=== PATIENT | male | born 1960 | race American Indian/Alaskan Native ===

== ENCOUNTER 2018-10-11 03:20 | Inpatient (IN) | payer MEDICARE, OTHER ==
[2018-10-11] MEDS ORDERED: NACL 0.9% 1000 ML 2,000 ML ONE (04:18)
[2018-10-11] MEDS ORDERED: NACL 0.9% 500 ML 500 ML IV ONE (05:05)
[2018-10-11 05:49] LABS: Hematocrit 24.5 % (35.5-45.6); Mean Corpuscular HGB Conc 32 % (32-34); Mean Corpuscular Volume 94 fl (84-94); Platelet Count 297 K/mm3 (140-440); Red Blood Count 2.62 M/mm3 (3.65-5.03)
[2018-10-11 06:00] LABS: INR 1.35 (0.87-1.13)
[2018-10-11] MEDS ORDERED: ZOSYN/NS 4.5GM/100ML 4.5 GM/100 ML VIAL IV ONE (06:07)
--- NOTE | 2018-10-11 06:09 | XRay Report ---
FINAL REPORT EXAM: XR CHEST 1V AP HISTORY: possible Sepsis TECHNIQUE: AP portable view(s) of the chest obtained. PRIORS: None. FINDINGS: Patient is rotated. No mediastinal shift. Cardiac silhouette is not enlarged. No pneumothorax, effusi on, or focal pulmonary opacity identified. No acute skeletal findings. IMPRESSION: No acute pulmonary finding identified.
[2018-10-11 06:11] LABS: Albumin 2.1 g/dL (3.9-5); Calcium 7.4 mg/dL (8.4-10.2)
[2018-10-11] MEDS ORDERED: D50W (25GM) Syringe IV PRN (06:14)
[2018-10-11] MEDS ORDERED: VANCOMYCIN/NS 1 GM/250 ML 1 GM/250 ML BAG IV ONE (06:15)
[2018-10-11] MEDS: LEVOPHED DRIP 4 MG/NS 250 ML 4 MG/250 ML BAG IV SCH ×5 (06:15→19:49)
[2018-10-11 06:31] LABS: Anisocytosis 2+; Band Neutrophils # (Manual) 1.3 K/mm3; Basophils % (Manual) 0 % (0.0-1.8); Burr Cells 2+; Eosinophils % (Manual) 0 % (0.0-4.3); Monocytes % (Manual) 0 % (0.0-7.3); Poikilocytosis 2+; Total Cells Counted 100
[2018-10-11 06:32] LABS: Chol/HDL Ratio 3.71 %; Ovalocytes 1+
[2018-10-11 06:34] LABS: Bacteria,Urine 4+ /HPF (Negative); Bilirubin,Urine NEG (Negative); Blood,Urine SM (Negative); Color,Urine Amber (Yellow); Urobilinogen,Urine < 2.0 mg/dL (<2.0)
[2018-10-11 06:36] LABS: WBC,Urine > 182.0 /HPF (0.0-6.0)
[2018-10-11] MEDS ORDERED: VANCOMYCIN 1,250 MG in NACL 0.9% 250ML 250 ML IV ONE (07:00)
[2018-10-11] MEDS ORDERED: LEVOPHED DRIP 4 MG/NS 250 ML 4 MG/250 ML BAG IV SCH (07:00)
--- NOTE | 2018-10-11 07:32 | Emergency Department Report ---
ED General Adult HPI - General Chief complaint: Hyperglycemia Stated complaint: FEVER/VOMITING Time Seen by Provider: 10/11/18 06:00 Source: EMS Mode of arrival: Stretcher Limitations: Language Barrier, Physical Limitation - History of Present Illness Initial comments: 58-year-old male with a history of diabetes, anal abscess, colostomy presents after being referred from a nursing facility to this facility after noting to have a presence of fever and his blood pressure being low. Patient was noted to have chills but sugar was checked and was 426. Blood pressure at the residential was 91/44 and continued to be hypotensive upon arrival here in the emergency department. This patient had a recent admission to the Medical and was transitioned to a intermediate facility. - Related Data Allergies Allergy/AdvReac Type Severity Reaction Status Date / Time No Known Allergies Allergy Unverified 10/11/18 05:00 ED Review of Systems ROS: Stated complaint: FEVER/VOMITING Other details as noted in HPI Constitutional: chills, fever, weakness Eyes: denies: eye pain, eye discharge, vision change ENT: denies: ear pain, throat pain Respiratory: denies: cough, shortness of breath, wheezing Cardiovascular: denies: chest pain, palpitations Endocrine: no symptoms reported Gastrointestinal: denies: abdominal pain, nausea, diarrhea Genitourinary: denies: urgency, dysuria Musculoskeletal: denies: back pain, joint swelling, arthralgia Skin: denies: rash, lesions Neurological: denies: headache, weakness, paresthesias Psychiatric: denies: anxiety, depression Hematological/Lymphatic: denies: easy bleeding, easy bruising ED Past Medical Hx - Past Medical History Previous Medical History?: Yes Hx Hypertension: Yes 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) Hx Renal Disease: Yes Additional medical history: Hypercholesterolemia, Hyperlipidemia, Cardiogenic Shock, CKD, A-Fib, - Surgical History Past Surgical History?: Yes Additional Surgical History: Colostomy, Anal Abscess - Social History Smoking Status: Never Smoker Substance Use Type: None ED Physical Exam - General Limitations: Language Barrier, Physical Limitation General appearance: in distress, other (dehydrated) - Head Head exam: Present: atraumatic, normocephalic - Eye Eye exam: Present: normal appearance - ENT ENT exam: Present: mucous membranes dry - Neck Neck exam: Present: normal inspection - Respiratory Respiratory exam: Present: other (coarse breath sounds). Absent: respiratory distress - Cardiovascular Cardiovascular Exam: Present: normal rhythm, tachycardia. Absent: systolic murmur, diastolic murmur, rubs, gallop - GI/Abdominal GI/Abdominal exam: Present: soft, other (colostomy noted with brown stool no active bleeding.) - Rectal Rectal exam: Present: deferred - Extremities Exam Extremities exam: Present: normal inspection - Back Exam Back exam: Present: normal inspection - Neurological Exam Neurological exam: Present: CN II-XII intact, other (awake oriented to person and place but not to time) - Psychiatric Psychiatric exam: Present: normal affect, normal mood - Skin Skin exam: Present: other (Grade 4 decubitus ulcer noted). Absent: rash ED Course Vital Signs 10/11/18 10/11/18 10/11/18 04:02 04:15 04:20 Temperature 98.9 F Pulse Rate 114 H Respiratory 37 H Rate Blood Pressure 70/47 70/50 O2 Sat by Pulse 88 97 95 Oximetry 10/11/18 10/11/18 10/11/18 04:31 04:45 05:00 Temperature Pulse Rate 118 H 112 H 113 H Respiratory 29 H 37 H 23 Rate Blood Pressure 71/50 77/50 85/54 O2 Sat by Pulse 95 56 L 83 L Oximetry 10/11/18 10/11/18 10/11/18 05:15 05:30 05:44 Temperature Pulse Rate 107 H 105 H Respiratory 33 H 31 H 18 Rate Blood Pressure 88/43 74/39 O2 Sat by Pulse 75 L 97 Oximetry 10/11/18 10/11/18 10/11/18 05:45 05:52 06:00 Temperature Pulse Rate 106 H 115 H 116 H Respiratory 37 H 14 Rate Blood Pressure 73/49 93/37 O2 Sat by Pulse Oximetry 10/11/18 10/11/18 10/11/18 06:15 06:30 06:45 Temperature Pulse Rate 114 H 112 H 116 H Respiratory 33 H 22 31 H Rate Blood Pressure 40/20 111/62 86/59 O2 Sat by Pulse 94 96 Oximetry 10/11/18 10/11/18 10/11/18 06:47 06:49 06:50 Temperature Pulse Rate 116 H 115 H 115 H Respiratory 33 H 31 H 31 H Rate Blood Pressure 86/59 88/51 89/50 O2 Sat by Pulse 95 91 86 Oximetry 10/11/18 10/11/18 10/11/18 06:51 06:53 06:55 Temperature Pulse Rate 117 H 112 H 109 H Respiratory 31 H 29 H 22 Rate Blood Pressure 89/50 89/50 84/50 O2 Sat by Pulse 89 97 96 Oximetry 10/11/18 10/11/18 10/11/18 06:57 06:59 07:01 Temperature Pulse Rate 111 H 112 H 108 H Respiratory 29 H 28 H 23 Rate Blood Pressure 91/73 107/60 107/60 O2 Sat by Pulse 97 97 98 Oximetry 10/11/18 10/11/18 10/11/18 07:02 07:03 07:04 Temperature Pulse Rate 109 H 110 H 108 H Respiratory 31 H 31 H 32 H Rate Blood Pressure 95/62 95/62 104/58 O2 Sat by Pulse 89 98 98 Oximetry 10/11/18 10/11/18 10/11/18 07:05 07:06 07:07 Temperature Pulse Rate 111 H 116 H 118 H Respiratory 33 H 31 H 31 H Rate Blood Pressure 104/58 110/65 110/65 O2 Sat by Pulse 98 97 97 Oximetry 10/11/18 10/11/18 10/11/18 07:09 07:11 07:12 Temperature Pulse Rate 117 H 116 H 117 H Respiratory 32 H 32 H 27 H Rate Blood Pressure 114/68 99/60 99/60 O2 Sat by Pulse 97 98 96 Oximetry 10/11/18 10/11/18 10/11/18 07:13 07:14 07:15 Temperature Pulse Rate 117 H 117 H 116 H Respiratory 30 H 25 H 31 H Rate Blood Pressure 99/60 111/69 111/69 O2 Sat by Pulse 98 98 98 Oximetry 10/11/18 10/11/18 10/11/18 07:16 07:17 07:19 Temperature Pulse Rate 117 H 116 H 115 H Respiratory 29 H 29 H 31 H Rate Blood Pressure 98/63 98/63 103/58 O2 Sat by Pulse 98 95 96 Oximetry 10/11/18 10/11/18 10/11/18 07:21 07:23 07:24 Temperature Pulse Rate 116 H 116 H 116 H Respiratory 29 H 31 H 28 H Rate Blood Pressure 106/61 106/61 102/59 O2 Sat by Pulse 100 95 95 Oximetry 10/11/18 10/11/18 07:25 07:26 Temperature Pulse Rate 115 H 116 H Respiratory 30 H 30 H Rate Blood Pressure 102/59 110/61 O2 Sat by Pulse 98 98 Oximetry - Central Line Placement Right Femoral Consent Obtained: emergent situation Time Out Performed: Yes Patient Placed on Monitor/Pulse Ox: Yes Prep: mask, gown, gloves Central Line Prep: Chlorhexidine scrub Local Anesthesia Used: Lidocaine 1% Amount of Anesthesia Used (mls): 5 Ultrasound Used for Placement: Yes Central Line Lumen Inserted: triple Bloods Obtained for Lab: No Central Line Position: good blood return, all ports aspirated, flus, sutured in place with nyl Patient Tolerated Procedure: well Complications: none ED Medical Decision Making - Lab Data Result diagrams: 10/11/18 05:21 10/11/18 05:21 - Medical Decision Making Upon arrival patient was noted to have an elevated blood sugar. Patient received 2 L IV fluids however continued to range hypotensive with a map in the 50s. Patient then was given Levaquin therapy which helped improve his mean arterial pressure. Patient was also given vancomycin and Zosyn therapy as patient has a sacral wound that is in Grade 4 status. Patient be admitted to ICU setting for continued management and treatment. Patient placed on a continuous insulin drip at the current time. - Differential Diagnosis DKA; anemia; electrolyte abnormalities; UTI; Critical Care Time: Yes Critical care time in (mins) excluding proc time.: 56 Critical care attestation.: If time is entered above; I have spent that time in minutes in the direct care of this critically ill patient, excluding procedure time. Critical Care Time: Critical care time does not include time spent on billable procedures. Time includes time spent on frequent reassessment; bedside care, and physician consultation. ED Disposition Clinical Impression: DKA (diabetic ketoacidoses), Hypotension, Sacral decubitus ulcer, stage IV, Fever, Hypokalemia Disposition: OP ADMIT IP TO THIS HOSP Is pt being admited?: Yes Does the pt Need Aspirin: No Condition: Critical Instructions: Diabetic Ketoacidosis (ED) Referrals: FERNANDO ROMANO MD [Primary Care Provider] - 3-5 Days Time of Disposition: 07:35 Print Language: SAUDI ARABIAN
[2018-10-11] MEDS: HumuLIN R 100 UNITS in NACL 0.9% 99 ML IV SCH ×2 (07:57→20:54)
[2018-10-11 08:12] LABS: Calcium 7.8 mg/dL (8.4-10.2)
[2018-10-11] MEDS ORDERED: PROVENTIL IH PRN (08:21)
--- NOTE | 2018-10-11 08:40 | History and Physical Report ---
History of Present Illness Date of examination: 10/11/18 Date of admission: 10/11/18 Chief complaint: Sepsis History of present illness: Dinora is a 58 year old male presenting from ID ([facility]) Pt is a very poor historian, per medical records he has history of paroxysmal atrial fibrillation, hypertension, diabetes, Colosotomy and lack of coordination with Muscle weakness anal abscess with recent debridement in Aug 2018, chronic indwelling suarez who was referred to the ER from his [facility] for evaluation of fever and low blood pressure and altered mental status. In the ER he was found to have urosepsis, acute renal failure and DKA with elevated troponin. Patient was unable to provided any information due to inchoherrence of his thoughts he complained of dry mouth per the ED Physician. He denies any chest pain, palpitations or shortness of breath. A report from the ID revealed that he was noted this mornign to be confused with shivering. Labs done the day prior to admission revealed a wbc of 31 per the staff. The patient in the ED was started on sepsis protocol and also pressers Past History Past Medical History: atrial fib (paroxysmal ), diabetes, hypertension, other (anal abscess, chronic indwelling suarez) Past Surgical History: Other Social history: other ([facility] resident) Family history: other (unable to obtain ) Past History Past Medical History: CAD, hypertension Past Surgical History: bowel surgery, Other (COLOSTOMY) Social history: other (ID ) Family history: no significant family history Medications and Allergies Allergies Allergy/AdvReac Type Severity Reaction Status Date / Time No Known Allergies Allergy Unverified 10/11/18 05:00 Home Medications Medication Instructions Recorded Confirmed Last Taken Type Acetaminophen [Acetaminophen ER] 650 mg PO Q6H PRN 10/11/18 10/11/18 Unknown History Amlodipine Besylate [Norvasc] 5 mg PO DAILY 10/11/18 10/11/18 Unknown History Atorvastatin [Lipitor Tab] 80 mg PO QHS 10/11/18 10/11/18 Unknown History Calcium Carbonate [Calcium Antacid] 200 mg PO TID 10/11/18 10/11/18 Unknown History Collagenase Clostridium Hist. 1 applic TP BID 10/11/18 10/11/18 Unknown History [Santyl] Collagenase Clostridium Hist. 1 applic TP QPM 10/11/18 10/11/18 Unknown History [Santyl] HYDROcodone/APAP 7.5-325 [[place] 1 each PO Q4HR PRN 10/11/18 10/11/18 Unknown History 7.5/325] Metformin HCl [Glucophage] 500 mg PO BID 10/11/18 10/11/18 Unknown History Mirtazapine [Remeron] 15 mg PO HS 10/11/18 10/11/18 Unknown History RX: Allopurinol 300 mg PO QDAY 10/11/18 10/11/18 Unknown History Sulfamethoxazole/Trimethoprim 1 each PO BID 10/11/18 10/11/18 Unknown History [Bactrim DS TAB] Active Meds: Active Medications Albuterol (Proventil) 2.5 mg IH Q3HRT PRN PRN Reason: Shortness Of Breath Albuterol/Ipratropium (Duoneb *Not For Prn Use*) 1 ampul IH Q6HRT FRANCISCO Dextrose (D50w (25gm) Syringe) 0 ml IV ONCE PRN PRN Reason: Hypoglycemia Norepinephrine (Levophed Drip 4 Mg/Ns 250 Ml) 4 mg in 250 mls @ 7.5 mls/hr IV TITR FRANCISCO; Protocol Last Admin: 10/11/18 07:08 Dose: 20 mcg/min, 75 mls/hr Documented by: Insulin Human Regular 100 (units/ Sodium Chloride) 100 mls @ 1 mls/hr IV TITR FRANCISCO; Protocol Last Admin: 10/11/18 07:57 Dose: 4 units/hr, 4 mls/hr Documented by: Vancomycin HCl 1,250 mg/ (Sodium Chloride) 275 mls @ 166.667 mls/hr IV ONCE ONE Stop: 10/11/18 08:38 Last Admin: 10/11/18 07:57 Dose: 166.667 mls/hr Documented by: Potassium Chloride (Kcl 10meq/100ml) 10 meq in 100 mls @ 100 mls/hr IV Q1H FRANCISCO Stop: 10/11/18 10:59 Cefepime HCl (Maxipime/Ns 2 Gm/100 Ml) 2 gm in 100 mls @ 200 mls/hr IV Q12HR FRANCISCO; Protocol Ondansetron HCl (Zofran) 4 mg IV Q8H PRN PRN Reason: Nausea And Vomiting Sodium Chloride (Nacl 0.9% 1000 Ml) 2,340 ml 30 ml/kg (2340 ml) IV ONCE ONE Stop: 10/11/18 08:22 Sodium Chloride (Sodium Chloride Flush Syringe 10 Ml) 10 ml IV BID FRANCISCO Sodium Chloride (Sodium Chloride Flush Syringe 10 Ml) 10 ml IV PRN PRN PRN Reason: LINE FLUSH Review of Systems ROS unobtainable: due to mental status Exam - Constitutional Vitals: Temp Pulse Resp BP Pulse Ox 98.9 F 116 H 30 H 110/61 98 10/11/18 04:20 10/11/18 07:26 10/11/18 07:26 10/11/18 07:26 10/11/18 07:26 General appearance: Present: mild distress, disheveled - EENT Eyes: Present: PERRL, EOM intact ENT: clear oral mucosa - Neck Neck: Present: supple, normal ROM - Respiratory Respiratory effort: normal Respiratory: bilateral: diminished - Cardiovascular Heart Sounds: Present: S1 & S2, gallop. Absent: systolic murmur - Extremities Extremities: no ischemia, pulses intact, pulses symmetrical, No edema, normal temperature, normal color Peripheral Pulses: within normal limits - Abdominal General gastrointestinal: Present: non-tender, non-distended, other (good pink colostomy site) - Integumentary Integumentary: Present: warm (unstagable pressure ulcer) - Musculoskeletal Musculoskeletal: generalized weakness - Psychiatric Psychiatric: agitated - Neurologic Neurologic: other (encephalopathic) - Allied Health Allied health notes reviewed: nursing Results - Labs CBC & Chem 7: 10/11/18 05:21 10/11/18 Unknown Labs: Laboratory Last Values WBC 22.3 K/mm3 (4.5-11.0) H 10/11/18 05:21 RBC 2.62 M/mm3 (3.65-5.03) L 10/11/18 05:21 Hgb 8.0 gm/dl (11.8-15.2) L 10/11/18 05:21 Hct 24.5 % (35.5-45.6) L 10/11/18 05:21 MCV 94 fl (84-94) 10/11/18 05:21 MCH 30 pg (28-32) 10/11/18 05:21 MCHC 32 % (32-34) 10/11/18 05:21 RDW 16.0 % (13.2-15.2) H 10/11/18 05:21 Plt Count 297 K/mm3 (140-440) 10/11/18 05:21 Add Manual Diff Complete 10/11/18 05:21 Total Counted 100 10/11/18 05:21 Seg Neuts % (Manual) 90.0 % (40.0-70.0) H 10/11/18 05:21 Band Neutrophils % 6.0 % 10/11/18 05:21 Lymphocytes % (Manual) 4.0 % (13.4-35.0) L 10/11/18 05:21 Reactive Lymphs % (Man) 0 % 10/11/18 05:21 Monocytes % (Manual) 0 % (0.0-7.3) 10/11/18 05:21 Eosinophils % (Manual) 0 % (0.0-4.3) 10/11/18 05:21 Basophils % (Manual) 0 % (0.0-1.8) 10/11/18 05:21 Metamyelocytes % 0 % 10/11/18 05:21 Myelocytes % 0 % 10/11/18 05:21 Promyelocytes % 0 % 10/11/18 05:21 Blast Cells % 0 % 10/11/18 05:21 Nucleated RBC % Not Reportable 10/11/18 05:21 Seg Neutrophils # Man 20.1 K/mm3 (1.8-7.7) H 10/11/18 05:21 Band Neutrophils # 1.3 K/mm3 10/11/18 05:21 Lymphocytes # (Manual) 0.9 K/mm3 (1.2-5.4) L 10/11/18 05:21 Abs React Lymphs (Man) 0.0 K/mm3 10/11/18 05:21 Monocytes # (Manual) 0.0 K/mm3 (0.0-0.8) 10/11/18 05:21 Eosinophils # (Manual) 0.0 K/mm3 (0.0-0.4) 10/11/18 05:21 Basophils # (Manual) 0.0 K/mm3 (0.0-0.1) 10/11/18 05:21 Metamyelocytes # 0.0 K/mm3 10/11/18 05:21 Myelocytes # 0.0 K/mm3 10/11/18 05:21 Promyelocytes # 0.0 K/mm3 10/11/18 05:21 Blast Cells # 0.0 K/mm3 10/11/18 05:21 WBC Morphology Not Reportable 10/11/18 05:21 Hypersegmented Neuts Not Reportable 10/11/18 05:21 Hyposegmented Neuts Not Reportable 10/11/18 05:21 Hypogranular Neuts Not Reportable 10/11/18 05:21 Smudge Cells Not Reportable 10/11/18 05:21 Toxic Granulation Not Reportable 10/11/18 05:21 Toxic Vacuolation Not Reportable 10/11/18 05:21 Dohle Bodies Not Reportable 10/11/18 05:21 Pelger-Huet Anomaly Not Reportable 10/11/18 05:21 Lisa Rods Not Reportable 10/11/18 05:21 Platelet Estimate Appears normal 10/11/18 05:21 Clumped Platelets Not Reportable 10/11/18 05:21 Plt Clumps, EDTA Not Reportable 10/11/18 05:21 Large Platelets Not Reportable 10/11/18 05:21 Giant Platelets Not Reportable 10/11/18 05:21 Platelet Satelliting Not Reportable 10/11/18 05:21 Plt Morphology Comment Not Reportable 10/11/18 05:21 RBC Morphology Not Reportable 10/11/18 05:21 Dimorphic RBCs Not Reportable 10/11/18 05:21 Polychromasia Few 10/11/18 05:21 Hypochromasia Not Reportable 10/11/18 05:21 Poikilocytosis 2+ 10/11/18 05:21 Anisocytosis 2+ 10/11/18 05:21 Microcytosis Not Reportable 10/11/18 05:21 Macrocytosis Not Reportable 10/11/18 05:21 Spherocytes Not Reportable 10/11/18 05:21 Pappenheimer Bodies Not Reportable 10/11/18 05:21 Sickle Cells Not Reportable 10/11/18 05:21 Target Cells Not Reportable 10/11/18 05:21 Tear Drop Cells Not Reportable 10/11/18 05:21 Ovalocytes 1+ 10/11/18 05:21 Helmet Cells Not Reportable 10/11/18 05:21 [place] Bodies Not Reportable 10/11/18 05:21 [place] Rings Not Reportable 10/11/18 05:21 [place] Cells 2+ 10/11/18 05:21 Bite Cells Not Reportable 10/11/18 05:21 Crenated Cell Not Reportable 10/11/18 05:21 Elliptocytes Not Reportable 10/11/18 05:21 Acanthocytes (Spur) Few 10/11/18 05:21 Rouleaux Not Reportable 10/11/18 05:21 Hemoglobin C Crystals Not Reportable 10/11/18 05:21 Schistocytes Not Reportable 10/11/18 05:21 Malaria parasites Not Reportable 10/11/18 05:21 [place] Bodies Not Reportable 10/11/18 05:21 Hem Pathologist Commnt No 10/11/18 05:21 PT 17.1 Sec. (12.2-14.9) H 10/11/18 05:21 INR 1.35 (0.87-1.13) H 10/11/18 05:21 VBG pH 7.226 (7.320-7.420) L 10/11/18 05:21 Sodium 132 mmol/L (137-145) L 10/11/18 06:51 Potassium 3.1 mmol/L (3.6-5.0) L 10/11/18 06:51 Chloride 94.3 mmol/L (98-107) L 10/11/18 06:51 Carbon Dioxide 10 mmol/L (22-30) L 10/11/18 06:51 Anion Gap 31 mmol/L 10/11/18 06:51 BUN 68 mg/dL (9-20) H 10/11/18 06:51 Creatinine 5.8 mg/dL (0.8-1.5) H 10/11/18 06:51 Estimated GFR 12 ml/min 10/11/18 06:51 BUN/Creatinine Ratio 12 % 10/11/18 06:51 Glucose 402 mg/dL (75-100) H 10/11/18 06:51 Lactic Acid 7.40 mmol/L (0.7-2.0) H* 10/11/18 05:21 Calcium 7.8 mg/dL (8.4-10.2) L 10/11/18 06:51 Phosphorus 4.80 mg/dL (2.5-4.5) H 10/11/18 06:51 Total Bilirubin 0.30 mg/dL (0.1-1.2) 10/11/18 05:21 AST 27 units/L (5-40) 10/11/18 05:21 ALT 13 units/L (7-56) 10/11/18 05:21 Alkaline Phosphatase 105 units/L (35-129) 10/11/18 05:21 Total Creatine Kinase 1094 units/L (55-170) H 10/11/18 05:21 CK-MB (CK-2) 3.0 ng/mL (0.0-4.0) 10/11/18 05:21 CK-MB (CK-2) Rel Index 0.2 (0-4) 10/11/18 05:21 Troponin T 0.116 ng/mL (0.00-0.029) H* 10/11/18 05:21 Total Protein 6.2 g/dL (6.3-8.2) L 10/11/18 05:21 Albumin 2.1 g/dL (3.9-5) L 10/11/18 05:21 Albumin/Globulin Ratio 0.5 % 10/11/18 05:21 Triglycerides 120 mg/dL (2-149) 10/11/18 05:21 Cholesterol 26 mg/dL (50-199) L 10/11/18 05:21 LDL Cholesterol Direct 4 mg/dL (50-130) L 10/11/18 05:21 HDL Cholesterol 7 mg/dL (40-59) L 10/11/18 05:21 Cholesterol/HDL Ratio 3.71 % 10/11/18 05:21 Urine Color Christine (Yellow) 10/11/18 06:08 Urine Turbidity Turbid (Clear) 10/11/18 06:08 Urine pH 5.0 (5.0-7.0) 10/11/18 06:08 Ur Specific [place] 1.016 (1.003-1.030) 10/11/18 06:08 Urine Protein 100 mg/dl mg/dL (Negative) 10/11/18 06:08 Urine Glucose (UA) Neg mg/dL (Negative) 10/11/18 06:08 Urine Ketones Neg mg/dL (Negative) 10/11/18 06:08 Urine Blood Sm (Negative) 10/11/18 06:08 Urine Nitrite Neg (Negative) 10/11/18 06:08 Urine Bilirubin Neg (Negative) 10/11/18 06:08 Urine Urobilinogen < 2.0 mg/dL (<2.0) 10/11/18 06:08 Ur Leukocyte Esterase Lg (Negative) 10/11/18 06:08 Urine WBC (Auto) > 182.0 /HPF (0.0-6.0) H 10/11/18 06:08 Urine RBC (Auto) 71.0 /HPF (0.0-6.0) 10/11/18 06:08 U Epithel Cells (Auto) 1.0 /HPF (0-13.0) 10/11/18 06:08 Urine Bacteria (Auto) 4+ /HPF (Negative) 10/11/18 06:08 Urine WBC Clumps 3+ /HPF 10/11/18 06:08 - Imaging and Cardiology Chest x-ray: image reviewed (no acute finding) Assessment and Plan Assessment and plan: Dinora is a 58 year old male presenting from ID ([facility]) Pt is a very poor historian, per medical records he has history of paroxysmal atrial fibrillation, hypertension, diabetes, Colosotomy and lack of coordination with Muscle weakness anal abscess with recent debridement in Aug 2018, chronic indwelling suarez who was referred to the ER from his [facility] for evaluation of fever and low blood pressure and altered mental status. In the ER he was found to have urosepsis, acute renal failure and DKA with elevated troponin. Patient was unable to provided any information due to incoherence of his thoughts he complained of dry mouth per the ED Physician. He denies any chest pain, palpitations or shortness of breath. A report from the ID revealed that he was noted this morning to be confused with shivering. Labs done the day prior to admission revealed a wbc of 31.4 per the staff. The patient in the ED was started on sepsis protocol and also pressers labs from [facility] done 10/10/17: wbc 31.4, hgb 9.1, plt 271 Acute Toxic metabolic encephalopathy Septic Shock Severe Sepsis Hyperosmolar NonKetotic Hyperglycemia Uncontrolled DM MALCOLM secondary to vasomotor nephropathy Metabolic acidosis Colostomy Unstagable scaral pressure ulcer POA Afib with RVR Troponemia- Type 2 NSTEMI Anemia of chronic disease Hypokalemia Severe Protein calorie malnutrition Plan Admit to ICU Insulin drip as ordered Heparin drip as ordered Cardiology, sterile processing technician, ID, nephrology consult Surgical consult Exchange Suarez Update Med Rec Give addition 2 liter bolus of fluids Sepsis protocol DKA protocol ET consult Renal ultrasound Wean pressors as tolerated PICC team for Access and D/C Right femoral Line. Replace electrolytes Fall precautions DVT/GI prophy The high probability of a clinically significant, sudden or life threatening deterioration of the [CARDIAC, RENAL, ] system(s) required my full and direct attention, intervention and personal management. The aggregate critical care time was [90] minutes. This time is in addition to time spent performing reported procedures but includes the following: [X] Data Review and interpretation [X] Patient assessment and monitoring of vital signs [X] Documentation [X] Medication orders and management Advance Directives: Yes Plan of care discussed with patient/family: Yes
[2018-10-11 08:48] LABS: Calcium 7.6 mg/dL (8.4-10.2)
[2018-10-11] MEDS ORDERED: NACL 0.9% 1000 ML IV ONE (09:00)
[2018-10-11] MEDS ORDERED: SODIUM CHLORIDE FLUSH SYRINGE 10 ML IV PRN (09:00)
[2018-10-11] MEDS ORDERED: VANCOMYCIN PHARMACY TO DOSE IV SCH (09:00)
[2018-10-11] MEDS: KCL 10MEQ/100ML 10 MEQ/100 ML BAG IV SCH ×4 (09:06→16:10)
--- NOTE | 2018-10-11 09:23 | Consultation ---
History of Present Illness - Reason for Consult Consult date: 10/11/18 acute renal failure, metabolic acidosis - History of Present Illness Mr. Jimenez is a 58yo with hx of type II DM, anal abscess and colostomy who presented to the ED from SNF due to fever and hyoptension. In addition, patient was noted to have a glucose of 426. . Past History Past Medical History: diabetes, hypertension, hyperlipidemia Past Surgical History: Other (colostomy) Social history: other (Resides at [facility]) Medications and Allergies Allergies Allergy/AdvReac Type Severity Reaction Status Date / Time No Known Allergies Allergy Unverified 10/11/18 05:00 Home Medications Medication Instructions Recorded Confirmed Last Taken Type Acetaminophen [Acetaminophen ER] 650 mg PO Q6H PRN 10/11/18 10/11/18 Unknown History Allopurinol 300 mg PO QDAY 10/11/18 10/11/18 Unknown History Amlodipine Besylate [Norvasc] 5 mg PO DAILY 10/11/18 10/11/18 Unknown History Atorvastatin [Lipitor Tab] 80 mg PO QHS 10/11/18 10/11/18 Unknown History Calcium Carbonate [Calcium Antacid] 200 mg PO TID 10/11/18 10/11/18 Unknown History Collagenase Clostridium Hist. 1 applic TP BID 10/11/18 10/11/18 Unknown History [Santyl] Collagenase Clostridium Hist. 1 applic TP QPM 10/11/18 10/11/18 Unknown History [Santyl] HYDROcodone/APAP 7.5-325 [[place] 1 each PO Q4HR PRN 10/11/18 10/11/18 Unknown History 7.5/325] Metformin HCl [Glucophage] 500 mg PO BID 10/11/18 10/11/18 Unknown History Mirtazapine [Remeron] 15 mg PO HS 10/11/18 10/11/18 Unknown History Sulfamethoxazole/Trimethoprim 1 each PO BID 10/11/18 10/11/18 Unknown History [Bactrim DS TAB] Active Meds: Active Medications Albuterol (Proventil) 2.5 mg IH Q3HRT PRN PRN Reason: Shortness Of Breath Albuterol/Ipratropium (Duoneb *Not For Prn Use*) 1 ampul IH Q6HRT FRANCISCO Dextrose (D50w (25gm) Syringe) 0 ml IV ONCE PRN PRN Reason: Hypoglycemia Norepinephrine (Levophed Drip 4 Mg/Ns 250 Ml) 4 mg in 250 mls @ 7.5 mls/hr IV TITR FRANCISCO; Protocol Last Admin: 10/11/18 07:08 Dose: 20 mcg/min, 75 mls/hr Documented by: Insulin Human Regular 100 (units/ Sodium Chloride) 100 mls @ 1 mls/hr IV TITR FRANCISCO; Protocol Last Titration: 10/11/18 09:08 Dose: 9 units/hr, 9 mls/hr Documented by: Potassium Chloride (Kcl 10meq/100ml) 10 meq in 100 mls @ 100 mls/hr IV Q1H FRANCISCO Stop: 10/11/18 10:59 Last Admin: 10/11/18 09:06 Dose: 100 mls/hr Documented by: Cefepime HCl (Maxipime/Ns 2 Gm/100 Ml) 2 gm in 100 mls @ 200 mls/hr IV Q12HR FRANCISCO; Protocol Ondansetron HCl (Zofran) 4 mg IV Q8H PRN PRN Reason: Nausea And Vomiting Sodium Chloride (Sodium Chloride Flush Syringe 10 Ml) 10 ml IV BID FRANCISCO Sodium Chloride (Sodium Chloride Flush Syringe 10 Ml) 10 ml IV PRN PRN PRN Reason: LINE FLUSH Review of Systems All systems: negative Exam - Vital Signs Vital signs: Vital Signs Pulse Ox 88 10/11/18 04:02 - General Appearance General appearance: well-developed EENT: other (poor dentition) Respiratory: Clear to Ascultation Heart: tachycardia Gastrointestinal: Present: normal. Absent: tenderness, distended Integumentary: no rash, warm and dry Neurologic: no focal deficit Musculoskeletal: Present: other (no edema) Results - Lab Results 10/11/18 05:21 10/11/18 Unknown Most recent lab results Calcium 7.6 mg/dL (8.4-10.2) L 10/11/18 Unknown Phosphorus 4.80 mg/dL (2.5-4.5) H 10/11/18 06:51 Assessment and Plan Impression: * Acute kidney secondary to ATN * Sepsis - ?urinary source * Metabolic acidosis secondary to lactic acidosis * UTI * Hypokalemia Plan: * Renal prognosis is guarded * Volume resuscitation per primary team * Start Bicarb gtt * Blood/urine cultures * Abx per primary team * Pressors prn to maintain MAP>65 - currently on Levophed * Replete lytes prn * Dose medications for renal function * Avoid potential nephrotoxins
[2018-10-11] MEDS ORDERED: ZOFRAN IV PRN (09:30)
[2018-10-11] MEDS ORDERED: NACL 0.9% 250ML 250 ML ONE (09:39)
[2018-10-11] MEDS ORDERED: NACL 0.9% 500 ML 500 ML ONE (09:40)
[2018-10-11] MEDS ORDERED: LEVOPHED DRIP 4 MG/NS 250 ML 4 MG/250 ML BAG IV ONE (09:55)
[2018-10-11] MEDS ORDERED: MAGNESIUM SULFATE IV ONE (09:56)
[2018-10-11] MEDS ORDERED: MAXIPIME/NS 2 GM/100 ML 2 GM/100 ML BAG IV SCH (10:00)
[2018-10-11] MEDS ORDERED: SODIUM BICARBONATE 150 MEQ in D5W 1,000 ML IV ONE (10:00)
--- NOTE | 2018-10-11 10:07 | Ultrasound Report ---
ULTRASOUND RENAL BILATERAL HISTORY: Acute renal insufficiency, evaluate for hydronephrosis. TECHNIQUE: transabdominal ultrasound with color Doppler interrogation. FINDINGS: The right kidney measures 10.5cm. Right renal cortex: 1.6cm. The left kidney measures 11.6cm. Left renal cortex: 1.6cm. Both kidneys are normal size, contour and position. There is mild increased cortical echotexture consistent with nonspecific renal parenchymal disease. No evidence for cyst, mass, calcifications or hydronephrosis. The bladder is essentially empty and poorly evaluated. The liver parenchyma is echogenic consistent with fatty infiltration or other parenchymal disease. There is moderate sludge in the gallbladder. IMPRESSION: Slightly echogenic kidneys consistent with nonspecific renal parenchymal disease. No hydronephrosis. Liver disease unspecified. Sludge in the gallbladder.
--- NOTE | 2018-10-11 10:34 | Consultation ---
History of Present Illness Consult date: 10/11/18 Requesting physician: ANNE BOLAND History of present illness: History of present illness: Dinora is a 58 year old male presenting from [place] ([facility]) Pt is a very poor historian, per medical records he has history of paroxysmal atrial fibrillation, hypertension, diabetes, Colosotomy and lack of coordination with Muscle weakness anal abscess with recent debridement in Aug 2018, chronic indwelling suarez who was referred to the ER from his skilled nursing for evaluation of fever and low blood pressure and altered mental status. In the ER he was found to have urosepsis, acute renal failure and DKA with elevated troponin. Patient was unable to provided any information due to inchoherrence of his thoughts he complained of dry mouth per the ED Physician. He denies any chest pain, palpitations or shortness of breath. A report from the [place] revealed that he was noted this mornign to be confused with shivering. Labs done the day prior to admission revealed a wbc of 31 per the staff. The patient in the ED was started on sepsis protocol and also vasopressor support. I have been consulted for critical care management. Patient was seen and examined. Vitals, labs, medications, chart and imaging reviewed. 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) Family history: other (unable to obtain ) Past History Past Medical History: CAD, hypertension Past Surgical History: bowel surgery, Other (COLOSTOMY) Social history: other ([place] ) Family history: no significant family history Medications and Allergies Allergies Allergy/AdvReac Type Severity Reaction Status Date / Time No Known Allergies Allergy Unverified 10/11/18 05:00 Home Medications Medication Instructions Recorded Confirmed Last Taken Type Acetaminophen [Acetaminophen ER] 650 mg PO Q6H PRN 10/11/18 10/11/18 Unknown History Allopurinol 300 mg PO QDAY 10/11/18 10/11/18 Unknown History Amlodipine Besylate [Norvasc] 5 mg PO DAILY 10/11/18 10/11/18 Unknown History Atorvastatin [Lipitor Tab] 80 mg PO QHS 10/11/18 10/11/18 Unknown History Calcium Carbonate [Calcium Antacid] 200 mg PO TID 10/11/18 10/11/18 Unknown History Collagenase Clostridium Hist. 1 applic TP BID 10/11/18 10/11/18 Unknown History [Santyl] Collagenase Clostridium Hist. 1 applic TP QPM 10/11/18 10/11/18 Unknown History [Santyl] HYDROcodone/APAP 7.5-325 [[place] 1 each PO Q4HR PRN 10/11/18 10/11/18 Unknown History 7.5/325] Metformin HCl [Glucophage] 500 mg PO BID 10/11/18 10/11/18 Unknown History Mirtazapine [Remeron] 15 mg PO HS 10/11/18 10/11/18 Unknown History Sulfamethoxazole/Trimethoprim 1 each PO BID 10/11/18 10/11/18 Unknown History [Bactrim DS TAB] Active Meds: Active Medications Albuterol (Proventil) 2.5 mg IH Q3HRT PRN PRN Reason: Shortness Of Breath Albuterol/Ipratropium (Duoneb *Not For Prn Use*) 1 ampul IH Q6HRT [place]ISCO Dextrose (D50w (25gm) Syringe) 0 ml IV ONCE PRN PRN Reason: Hypoglycemia Norepinephrine (Levophed Drip 4 Mg/Ns 250 Ml) 4 mg in 250 mls @ 7.5 mls/hr IV TITR FRANCISCO; Protocol Last Admin: 10/11/18 07:08 Dose: 20 mcg/min, 75 mls/hr Documented by: Insulin Human Regular 100 (units/ Sodium Chloride) 100 mls @ 1 mls/hr IV TITR FRANCISCO; Protocol Last Titration: 10/11/18 10:23 Dose: 8 units/hr, 8 mls/hr Documented by: Potassium Chloride (Kcl 10meq/100ml) 10 meq in 100 mls @ 100 mls/hr IV Q1H FR[facility]ISCO Stop: 10/11/18 10:59 Last Admin: 10/11/18 09:06 Dose: 100 mls/hr Documented by: Sodium Bicarbonate 150 meq/ (Dextrose) 1,150 mls @ 150 mls/hr IV DIRECT ONE Stop: 10/11/18 17:39 Last Admin: 10/11/18 10:20 Dose: 150 mls/hr Documented by: Magnesium Sulfate (Magnesium Sulfate 4gm/100ml) 4 gm in 100 mls @ 25 mls/hr IV ONCE ONE Stop: 10/11/18 14:59 Cefepime HCl (Maxipime/Ns 2 Gm/100 Ml) 2 gm in 100 mls @ 200 mls/hr IV Q24HR FRANCISCO; Protocol Ondansetron HCl (Zofran) 4 mg IV Q8H PRN PRN Reason: Nausea And Vomiting Sodium Chloride (Sodium Chloride Flush Syringe 10 Ml) 10 ml IV BID FRANCISCO Sodium Chloride (Sodium Chloride Flush Syringe 10 Ml) 10 ml IV PRN PRN PRN Reason: LINE FLUSH Physical Examination Vital signs: Vital Signs Pulse Ox 88 10/11/18 04:02 General appearance: Present: mild distress, disheveled - EENT Eyes: Present: PERRL, EOM intact ENT: clear oral mucosa - Neck Neck: Present: supple, normal ROM - Respiratory Respiratory effort: normal Respiratory: bilateral: diminished - Cardiovascular Heart Sounds: Present: S1 & S2, gallop. Absent: systolic murmur - Extremities Extremities: no ischemia, pulses intact, pulses symmetrical, No edema, normal temperature, normal color Peripheral Pulses: within normal limits - Abdominal General gastrointestinal: Present: non-tender, non-distended, other (good pink colostomy site) Chronic indwelling suarez catheter - Integumentary Integumentary: Present: warm (unstageable sacral pressure ulcer) Foul smelling discharge from the anal region - Musculoskeletal Musculoskeletal: generalized weakness - Psychiatric Psychiatric: agitated - Neurologic Neurologic: other (encephalopathic) - Allied Health Allied health notes reviewed: nursing Results - Laboratory Findings CBC and BMP: 10/19/18 04:00 10/19/18 04:00 PT/INR, D-dimer PT 17.1 Sec. (12.2-14.9) H 10/11/18 05:21 INR 1.35 (0.87-1.13) H 10/11/18 05:21 Abnormal lab findings: Abnormal Labs 10/11/18 10/11/18 10/11/18 05:21 05:21 05:21 WBC 22.3 H RBC 2.62 L Hgb 8.0 L Hct 24.5 L RDW 16.0 H Seg Neuts % (Manual) 90.0 H Lymphocytes % (Manual) 4.0 L Seg Neutrophils # Man 20.1 H Lymphocytes # (Manual) 0.9 L PT 17.1 H INR 1.35 H VBG pH Sodium 133 L Potassium 2.8 L* Chloride 94.5 L Carbon Dioxide 11 L BUN 69 H Creatinine 5.0 H Glucose 362 H POC Glucose Lactic Acid Calcium 7.4 L Phosphorus Magnesium Total Creatine Kinase Troponin T 0.116 H* Total Protein 6.2 L Albumin 2.1 L Cholesterol 26 L LDL Cholesterol Direct 4 L HDL Cholesterol 7 L Urine WBC (Auto) 10/11/18 10/11/18 10/11/18 05:21 05:21 05:21 WBC RBC Hgb Hct RDW Seg Neuts % (Manual) Lymphocytes % (Manual) Seg Neutrophils # Man Lymphocytes # (Manual) PT INR VBG pH 7.226 L Sodium Potassium Chloride Carbon Dioxide BUN Creatinine Glucose POC Glucose Lactic Acid 7.40 H* Calcium Phosphorus Magnesium Total Creatine Kinase 1094 H Troponin T Total Protein Albumin Cholesterol LDL Cholesterol Direct HDL Cholesterol Urine WBC (Auto) 10/11/18 10/11/18 10/11/18 06:08 06:51 06:51 WBC RBC Hgb Hct RDW Seg Neuts % (Manual) Lymphocytes % (Manual) Seg Neutrophils # Man Lymphocytes # (Manual) PT INR VBG pH Sodium 132 L Potassium 3.1 L Chloride 94.3 L Carbon Dioxide 10 L BUN 68 H Creatinine 5.8 H Glucose 402 H POC Glucose Lactic Acid 7.80 H* Calcium 7.8 L Phosphorus 4.80 H Magnesium 0.90 L* Total Creatine Kinase Troponin T Total Protein Albumin Cholesterol LDL Cholesterol Direct HDL Cholesterol Urine WBC (Auto) > 182.0 H 10/11/18 10/11/18 10/11/18 08:56 10:23 Unknown WBC RBC Hgb Hct RDW Seg Neuts % (Manual) Lymphocytes % (Manual) Seg Neutrophils # Man Lymphocytes # (Manual) PT INR VBG pH Sodium Potassium Chloride Carbon Dioxide BUN Creatinine Glucose POC Glucose 367 H 305 H Lactic Acid 8.50 H* Calcium Phosphorus Magnesium Total Creatine Kinase Troponin T Total Protein Albumin Cholesterol LDL Cholesterol Direct HDL Cholesterol Urine WBC (Auto) 10/11/18 Unknown WBC RBC Hgb Hct RDW Seg Neuts % (Manual) Lymphocytes % (Manual) Seg Neutrophils # Man Lymphocytes # (Manual) PT INR VBG pH Sodium 133 L Potassium 3.0 L Chloride 93.7 L Carbon Dioxide 9 L* BUN 67 H Creatinine 5.9 H Glucose 406 H POC Glucose Lactic Acid Calcium 7.6 L Phosphorus Magnesium Total Creatine Kinase Troponin T Total Protein Albumin Cholesterol LDL Cholesterol Direct HDL Cholesterol Urine WBC (Auto) Assessment and Plan Severe Sepsis with septic shock Acute Toxic metabolic encephalopathy Severe metabolic acidosis DKA MALCOLM secondary to vasomotor nephropathy s/p Colostomy Unstagable sacral pressure ulcer POA Afib with RVR Troponemia- Type 2 NSTEMI Anemia of chronic disease Hypokalemia Severe Protein calorie malnutrition -Admit ICU - Norepinephrine to keep MAP > 65 mmHg - continue volume resuscitation - Surgical evaluation re: sacral decubitus - continue Sepsis protocol - continue antibiotics and de-escalate as indicated - ID consult - GI & VTE prophylaxis - glycemic control with target BG 140 to 180 mg/dL -initiate bicarbonate infusion -serial CXRs and ABGs, monitor closely for clinical signs of alveolar edema - transfuse for Hgb<7g/dL - PT/OT evaluation ongoing - follow Renal recommendations - continue fall precautions - Continue GI & VTE prophylaxis - continue mobility protocol for pressure ulcer prevention FULL CODE The high probability of a clinically significant, sudden or life threatening deterioration of the [CARDIAC, RENAL, ] system(s) required my full and direct attention, intervention and personal management. The aggregate critical care time was [75] minutes. This time is in addition to time spent performing reported procedures but includes the following: [X] Data Review and interpretation [X] Patient assessment and monitoring of vital signs [X] Documentation [X] Medication orders and management
[2018-10-11] MEDS ORDERED: MAGNESIUM SULFATE 4GM/100ML 4 GM/100 ML BAG IV ONE (11:00)
--- NOTE | 2018-10-11 11:02 | Consultation ---
History of Present Illness Consult date: 10/11/18 Requesting physician: ANNE BOLAND Consult reason: abnormal cardiac enzymes, other (h/o afib) History of present illness: The history was obtained from the medical record at the patient is a very poor historian. The patient is a 58 year old male with a history of paroxysmal atrial fibrillation, hypertension, diabetes, anal abscess, chronic indwelling suarez who was referred to the ER from his [place] [facility] for evaluation of fever and low blood pressure. In the ER he was found to have urosepsis, acute renal failure an d DKA. He remained hypotensive and has been started on a levophed gtt. He has a history of paroxysmal atrial fibrillation but is currently in sinus tachycardia. First troponin level is 0.116. Currently he is resting in bed, c/o "dry mouth." He denies any chest pain, palpitations or shortness of breath. Levophed gtt at 20mcg. Past History Past Medical History: atrial fib (paroxysmal ), diabetes, hypertension, other (anal abscess, chronic indwelling suarez) Past Surgical History: Other Social history: other ([place] [facility] resident) Family history: other (unable to obtain ) Medications and Allergies Allergies Allergy/AdvReac Type Severity Reaction Status Date / Time No Known Allergies Allergy Unverified 10/11/18 05:00 Home Medications Medication Instructions Recorded Confirmed Last Taken Type Acetaminophen [Acetaminophen ER] 650 mg PO Q6H PRN 10/11/18 10/11/18 Unknown History Allopurinol 300 mg PO QDAY 10/11/18 10/11/18 Unknown History Amlodipine Besylate [Norvasc] 5 mg PO DAILY 10/11/18 10/11/18 Unknown History Atorvastatin [Lipitor Tab] 80 mg PO QHS 10/11/18 10/11/18 Unknown History Calcium Carbonate [Calcium Antacid] 200 mg PO TID 10/11/18 10/11/18 Unknown History Collagenase Clostridium Hist. 1 applic TP BID 10/11/18 10/11/18 Unknown History [Santyl] Collagenase Clostridium Hist. 1 applic TP QPM 10/11/18 10/11/18 Unknown History [Santyl] HYDROcodone/APAP 7.5-325 [[place] 1 each PO Q4HR PRN 10/11/18 10/11/18 Unknown History 7.5/325] Metformin HCl [Glucophage] 500 mg PO BID 10/11/18 10/11/18 Unknown History Mirtazapine [Remeron] 15 mg PO HS 10/11/18 10/11/18 Unknown History Sulfamethoxazole/Trimethoprim 1 each PO BID 10/11/18 10/11/18 Unknown History [Bactrim DS TAB] Active Meds: Active Medications Albuterol (Proventil) 2.5 mg IH Q3HRT PRN PRN Reason: Shortness Of Breath Albuterol/Ipratropium (Duoneb *Not For Prn Use*) 1 ampul IH Q6HRT [place]ISCO Dextrose (D50w (25gm) Syringe) 0 ml IV ONCE PRN PRN Reason: Hypoglycemia Norepinephrine (Levophed Drip 4 Mg/Ns 250 Ml) 4 mg in 250 mls @ 7.5 mls/hr IV TITR FRANCISCO; Protocol Last Admin: 10/11/18 07:08 Dose: 20 mcg/min, 75 mls/hr Documented by: Insulin Human Regular 100 (units/ Sodium Chloride) 100 mls @ 1 mls/hr IV TITR FRANCISCO; Protocol Last Titration: 10/11/18 10:23 Dose: 8 units/hr, 8 mls/hr Documented by: Sodium Bicarbonate 150 meq/ (Dextrose) 1,150 mls @ 150 mls/hr IV DIRECT ONE Stop: 10/11/18 17:39 Last Admin: 10/11/18 10:20 Dose: 150 mls/hr Documented by: Magnesium Sulfate (Magnesium Sulfate 4gm/100ml) 4 gm in 100 mls @ 25 mls/hr IV ONCE ONE Stop: 10/11/18 14:59 Cefepime HCl (Maxipime/Ns 2 Gm/100 Ml) 2 gm in 100 mls @ 200 mls/hr IV Q24HR FRANCISCO; Protocol Ondansetron HCl (Zofran) 4 mg IV Q8H PRN PRN Reason: Nausea And Vomiting Sodium Chloride (Sodium Chloride Flush Syringe 10 Ml) 10 ml IV BID FRANCISCO Sodium Chloride (Sodium Chloride Flush Syringe 10 Ml) 10 ml IV PRN PRN PRN Reason: LINE FLUSH Review of Systems ROS unobtainable: due to mental status Physical Examination Last Vital Signs Temp 99.5 F 10/11/18 10:26 Pulse 112 H 10/11/18 10:22 Resp 36 H 10/11/18 10:22 BP 102/55 10/11/18 10:22 Pulse Ox 94 10/11/18 10:22 General appearance: no acute distress HEENT: Positive: Normocephaly, Mucus Membranes Moist Neck: Positive: neck supple, trachea midline Cardiac: Positive: Regular Rhythm, S1/S2 Lungs: Positive: Decreased Breath Sounds Neuro: Positive: Other (disoriented) Abdomen: Positive: Soft Extremities: Absent: edema Results 10/11/18 05:21 10/11/18 Unknown Cardiac Enzymes 10/11/18 10/11/18 Range/Units 05:21 05:21 AST 27 (5-40) units/L CK-MB (CK-2) 3.0 (0.0-4.0) ng/mL Coagulation 10/11/18 Range/Units 05:21 PT 17.1 H (12.2-14.9) Sec. INR 1.35 H (0.87-1.13) Lipids 10/11/18 Range/Units 05:21 Triglycerides 120 (2-149) mg/dL Cholesterol 26 L (50-199) mg/dL HDL Cholesterol 7 L (40-59) mg/dL Cholesterol/HDL Ratio 3.71 % CBC 10/11/18 Range/Units 05:21 WBC 22.3 H (4.5-11.0) K/mm3 RBC 2.62 L (3.65-5.03) M/mm3 Hgb 8.0 L (11.8-15.2) gm/dl Hct 24.5 L (35.5-45.6) % Plt Count 297 (140-440) K/mm3 Comprehensive Metabolic Panel 10/11/18 10/11/18 10/11/18 Range/Units 05:21 06:51 Unknown Sodium 133 L 132 L 133 L (137-145) mmol/L Potassium 2.8 L* 3.1 L 3.0 L (3.6-5.0) mmol/L Chloride 94.5 L 94.3 L 93.7 L (98-107) mmol/L Carbon Dioxide 11 L 10 L 9 L* (22-30) mmol/L BUN 69 H 68 H 67 H (9-20) mg/dL Creatinine 5.0 H 5.8 H 5.9 H (0.8-1.5) mg/dL Glucose 362 H 402 H 406 H (75-100) mg/dL Calcium 7.4 L 7.8 L 7.6 L (8.4-10.2) mg/dL AST 27 (5-40) units/L ALT 13 (7-56) units/L Alkaline Phosphatase 105 (35-129) units/L Total Protein 6.2 L (6.3-8.2) g/dL Albumin 2.1 L (3.9-5) g/dL - Imaging and Cardiology Echo: pending EKG: image reviewed EKG interpretations - Telemetry EKG Rhythm: Sinus Tachycardia - EKG Sinus rhythms and dysrhythmias: sinus tachycardia Supraventricular dysrhythmia: atrial premature complexe Assessment and Plan Assessment: Severe sepsis/hypotension Urinary tract infection Sacral wound Elevated troponin, likely due to hypotension/acute kidney injury Acute renal failure Paroxysmal atrial fibrillation, currently sinus tachycardia H/o hypertension Diabetes Hypokalemia Plan: Wean pressors to maintain MAP > 65. Replace potassium. Obtain echocardiogram. Continue supportive care. The patient has been seen in conjunction with Dr. EDELMIRA Marcus who agrees with the assessment and plan of care.
[2018-10-11 11:20] LABS: Bacteria,Urine 3+ /HPF (Negative); Bilirubin,Urine NEG (Negative); Blood,Urine SM (Negative); Color,Urine Amber (Yellow); Mucus,Urine 2+ /HPF; Urobilinogen,Urine < 2.0 mg/dL (<2.0)
[2018-10-11 11:25] LABS: WBC,Urine > 182.0 /HPF (0.0-6.0)
--- NOTE | 2018-10-11 11:59 | Consultation ---
History of Present Illness - Reason for Consult Consult date: 10/11/18 Septic shock Requesting physician: ANNE RAMSEY - History of Present Illness The patient is a 58-year-old male with diabetes mellitus, recent admission in August 2018 for an anal abscess, colostomy was sent to the emergency room from an SNF earlier this morning after he was noted to have a fever with shaking chills and an elevated blood sugar level. The patient was noted to be septic in the emergency room, hypotensive with leukocytosis and significant lactic acidosis. He was aggressively fluid resuscitated, started on empiric antibiotics and admitted to the ICU. Infectious diseases was consulted for antibiotic recommendations. The patient is somewhat confused and is a poor historian. He thinks he is in the hospital but unable to tell me the place and time. Came in with an indwelling Suarez catheter. Apparently he was on oral Bactrim based on his [facility] records for a UTI. Also, he has a large sacral wound, the superior portion of which has some necrotic tissue and foul smell. Review of Systems: Cannot be obtained due to AMS. Family History: Cannot be obtained due to AMS. Medications and Allergies Allergies Allergy/AdvReac Type Severity Reaction Status Date / Time No Known Allergies Allergy Unverified 10/11/18 05:00 Home Medications Medication Instructions Recorded Confirmed Last Taken Type Acetaminophen [Acetaminophen ER] 650 mg PO Q6H PRN 10/11/18 10/11/18 Unknown History Allopurinol 300 mg PO QDAY 10/11/18 10/11/18 Unknown History Amlodipine Besylate [Norvasc] 5 mg PO DAILY 10/11/18 10/11/18 Unknown History Atorvastatin [Lipitor Tab] 80 mg PO QHS 10/11/18 10/11/18 Unknown History Calcium Carbonate [Calcium Antacid] 200 mg PO TID 10/11/18 10/11/18 Unknown History Collagenase Clostridium Hist. 1 applic TP BID 10/11/18 10/11/18 Unknown History [Santyl] Collagenase Clostridium Hist. 1 applic TP QPM 10/11/18 10/11/18 Unknown History [Santyl] HYDROcodone/APAP 7.5-325 [[place] 1 each PO Q4HR PRN 10/11/18 10/11/18 Unknown History 7.5/325] Metformin HCl [Glucophage] 500 mg PO BID 10/11/18 10/11/18 Unknown History Mirtazapine [Remeron] 15 mg PO HS 10/11/18 10/11/18 Unknown History Sulfamethoxazole/Trimethoprim 1 each PO BID 10/11/18 10/11/18 Unknown History [Bactrim DS TAB] Active Meds: Active Medications Albuterol (Proventil) 2.5 mg IH Q3HRT PRN PRN Reason: Shortness Of Breath Albuterol/Ipratropium (Duoneb *Not For Prn Use*) 1 ampul IH Q6HRT [place] Dextrose (D50w (25gm) Syringe) 0 ml IV ONCE PRN PRN Reason: Hypoglycemia Norepinephrine (Levophed Drip 4 Mg/Ns 250 Ml) 4 mg in 250 mls @ 7.5 mls/hr IV TITR FRANCISCO; Protocol Last Admin: 10/11/18 07:08 Dose: 20 mcg/min, 75 mls/hr Documented by: Insulin Human Regular 100 (units/ Sodium Chloride) 100 mls @ 1 mls/hr IV TITR FRANCISCO; Protocol Last Titration: 10/11/18 11:12 Dose: 7 units/hr, 7 mls/hr Documented by: Sodium Bicarbonate 150 meq/ (Dextrose) 1,150 mls @ 150 mls/hr IV DIRECT ONE Stop: 10/11/18 17:39 Last Admin: 10/11/18 10:20 Dose: 150 mls/hr Documented by: Magnesium Sulfate (Magnesium Sulfate 4gm/100ml) 4 gm in 100 mls @ 25 mls/hr IV ONCE ONE Stop: 10/11/18 14:59 Cefepime HCl (Maxipime/Ns 2 Gm/100 Ml) 2 gm in 100 mls @ 200 mls/hr IV Q24HR FRANCISCO; Protocol Sodium Chloride (Nacl 0.9% 1000 Ml) 1,000 mls @ 999 mls/hr IV ONCE [facility]ISCO Stop: 10/11/18 13:01 Metronidazole (Flagyl 500 Mg/100 Ml) 500 mg in 100 mls @ 100 mls/hr IV Q8HR FRANCISCO; Protocol Ondansetron HCl (Zofran) 4 mg IV Q8H PRN PRN Reason: Nausea And Vomiting Sodium Chloride (Sodium Chloride Flush Syringe 10 Ml) 10 ml IV BID FR[facility]ISCO Sodium Chloride (Sodium Chloride Flush Syringe 10 Ml) 10 ml IV PRN PRN PRN Reason: LINE FLUSH Physical Examination - Physical Exam Narrative exam: Physical Exam: Constitutional: Alert, cooperative. No acute distress Head, Ears, Nose: Normocephalic, atraumatic. External ears, nose normal Eyes: Conjunctivae/corneas clear. No icterus. No ptosis. Neck: Supple, no meningeal signs Oral: dentition poor, no thrush Cardiovascular: S1, S2 normal. Respiratory: Good air entry, clear to auscultation bilaterally GI: Soft, non-tender; bowel sounds normal. No peritoneal signs. suarez + Musculoskeletal: No pedal edema, no cyanosis. Large sacral wound, superior portion with foul smelling necrotic/devitalized tissue. Right femoral CVL + Skin: No rash. Hem/Lymphatic: No palpable cervical or supraclavicular nodes. No lymphangitis Psych: Mood ok. Affect flat Neurological: Awake, alert, but not oriented. - Constitutional Vitals: Vital Signs Temp Pulse Resp BP Pulse Ox 99.5 F 112 H 36 H 102/55 94 10/11/18 10:26 10/11/18 10:22 10/11/18 10:22 10/11/18 10:22 10/11/18 10:22 Temperature -Last 24 Hours Temperature 99.5 F Temperature 98.9 F Results - Labs CBC & Chem 7: 10/11/18 05:21 10/11/18 Unknown Labs: Abnormal lab results 10/11/18 10/11/18 10/11/18 Range/Units 05:21 05:21 05:21 WBC 22.3 H (4.5-11.0) K/mm3 RBC 2.62 L (3.65-5.03) M/mm3 Hgb 8.0 L (11.8-15.2) gm/dl Hct 24.5 L (35.5-45.6) % RDW 16.0 H (13.2-15.2) % Seg Neuts % (Manual) 90.0 H (40.0-70.0) % Lymphocytes % (Manual) 4.0 L (13.4-35.0) % Seg Neutrophils # Man 20.1 H (1.8-7.7) K/mm3 Lymphocytes # (Manual) 0.9 L (1.2-5.4) K/mm3 PT 17.1 H (12.2-14.9) Sec. INR 1.35 H (0.87-1.13) VBG pH (7.320-7.420) Sodium 133 L (137-145) mmol/L Potassium 2.8 L* (3.6-5.0) mmol/L Chloride 94.5 L (98-107) mmol/L Carbon Dioxide 11 L (22-30) mmol/L BUN 69 H (9-20) mg/dL Creatinine 5.0 H (0.8-1.5) mg/dL Glucose 362 H (75-100) mg/dL POC Glucose (70-105) Lactic Acid (0.7-2.0) mmol/L Calcium 7.4 L (8.4-10.2) mg/dL Phosphorus (2.5-4.5) mg/dL Magnesium (1.7-2.3) mg/dL Total Creatine Kinase (55-170) units/L Troponin T 0.116 H* (0.00-0.029) ng/mL Total Protein 6.2 L (6.3-8.2) g/dL Albumin 2.1 L (3.9-5) g/dL Cholesterol 26 L (50-199) mg/dL LDL Cholesterol Direct 4 L (50-130) mg/dL HDL Cholesterol 7 L (40-59) mg/dL Urine WBC (Auto) (0.0-6.0) /HPF 10/11/18 10/11/18 10/11/18 Range/Units 05:21 05:21 05:21 WBC (4.5-11.0) K/mm3 RBC (3.65-5.03) M/mm3 Hgb (11.8-15.2) gm/dl Hct (35.5-45.6) % RDW (13.2-15.2) % Seg Neuts % (Manual) (40.0-70.0) % Lymphocytes % (Manual) (13.4-35.0) % Seg Neutrophils # Man (1.8-7.7) K/mm3 Lymphocytes # (Manual) (1.2-5.4) K/mm3 PT (12.2-14.9) Sec. INR (0.87-1.13) VBG pH 7.226 L (7.320-7.420) Sodium (137-145) mmol/L Potassium (3.6-5.0) mmol/L Chloride (98-107) mmol/L Carbon Dioxide (22-30) mmol/L BUN (9-20) mg/dL Creatinine (0.8-1.5) mg/dL Glucose (75-100) mg/dL POC Glucose (70-105) Lactic Acid 7.40 H* (0.7-2.0) mmol/L Calcium (8.4-10.2) mg/dL Phosphorus (2.5-4.5) mg/dL Magnesium (1.7-2.3) mg/dL Total Creatine Kinase 1094 H (55-170) units/L Troponin T (0.00-0.029) ng/mL Total Protein (6.3-8.2) g/dL Albumin (3.9-5) g/dL Cholesterol (50-199) mg/dL LDL Cholesterol Direct (50-130) mg/dL HDL Cholesterol (40-59) mg/dL Urine WBC (Auto) (0.0-6.0) /HPF 10/11/18 10/11/18 10/11/18 Range/Units 06:08 06:51 06:51 WBC (4.5-11.0) K/mm3 RBC (3.65-5.03) M/mm3 Hgb (11.8-15.2) gm/dl Hct (35.5-45.6) % RDW (13.2-15.2) % Seg Neuts % (Manual) (40.0-70.0) % Lymphocytes % (Manual) (13.4-35.0) % Seg Neutrophils # Man (1.8-7.7) K/mm3 Lymphocytes # (Manual) (1.2-5.4) K/mm3 PT (12.2-14.9) Sec. INR (0.87-1.13) VBG pH (7.320-7.420) Sodium 132 L (137-145) mmol/L Potassium 3.1 L (3.6-5.0) mmol/L Chloride 94.3 L (98-107) mmol/L Carbon Dioxide 10 L (22-30) mmol/L BUN 68 H (9-20) mg/dL Creatinine 5.8 H (0.8-1.5) mg/dL Glucose 402 H (75-100) mg/dL POC Glucose (70-105) Lactic Acid 7.80 H* (0.7-2.0) mmol/L Calcium 7.8 L (8.4-10.2) mg/dL Phosphorus 4.80 H (2.5-4.5) mg/dL Magnesium 0.90 L* (1.7-2.3) mg/dL Total Creatine Kinase (55-170) units/L Troponin T (0.00-0.029) ng/mL Total Protein (6.3-8.2) g/dL Albumin (3.9-5) g/dL Cholesterol (50-199) mg/dL LDL Cholesterol Direct (50-130) mg/dL HDL Cholesterol (40-59) mg/dL Urine WBC (Auto) > 182.0 H (0.0-6.0) /HPF 10/11/18 10/11/18 10/11/18 Range/Units 08:56 10:23 11:12 WBC (4.5-11.0) K/mm3 RBC (3.65-5.03) M/mm3 Hgb (11.8-15.2) gm/dl Hct (35.5-45.6) % RDW (13.2-15.2) % Seg Neuts % (Manual) (40.0-70.0) % Lymphocytes % (Manual) (13.4-35.0) % Seg Neutrophils # Man (1.8-7.7) K/mm3 Lymphocytes # (Manual) (1.2-5.4) K/mm3 PT (12.2-14.9) Sec. INR (0.87-1.13) VBG pH (7.320-7.420) Sodium (137-145) mmol/L Potassium (3.6-5.0) mmol/L Chloride (98-107) mmol/L Carbon Dioxide (22-30) mmol/L BUN (9-20) mg/dL Creatinine (0.8-1.5) mg/dL Glucose (75-100) mg/dL POC Glucose 367 H 305 H 299 H (70-105) Lactic Acid (0.7-2.0) mmol/L Calcium (8.4-10.2) mg/dL Phosphorus (2.5-4.5) mg/dL Magnesium (1.7-2.3) mg/dL Total Creatine Kinase (55-170) units/L Troponin T (0.00-0.029) ng/mL Total Protein (6.3-8.2) g/dL Albumin (3.9-5) g/dL Cholesterol (50-199) mg/dL LDL Cholesterol Direct (50-130) mg/dL HDL Cholesterol (40-59) mg/dL Urine WBC (Auto) (0.0-6.0) /HPF 10/11/18 10/11/18 10/11/18 Range/Units Unknown Unknown Unknown WBC (4.5-11.0) K/mm3 RBC (3.65-5.03) M/mm3 Hgb (11.8-15.2) gm/dl Hct (35.5-45.6) % RDW (13.2-15.2) % Seg Neuts % (Manual) (40.0-70.0) % Lymphocytes % (Manual) (13.4-35.0) % Seg Neutrophils # Man (1.8-7.7) K/mm3 Lymphocytes # (Manual) (1.2-5.4) K/mm3 PT (12.2-14.9) Sec. INR (0.87-1.13) VBG pH (7.320-7.420) Sodium 133 L (137-145) mmol/L Potassium 3.0 L (3.6-5.0) mmol/L Chloride 93.7 L (98-107) mmol/L Carbon Dioxide 9 L* (22-30) mmol/L BUN 67 H (9-20) mg/dL Creatinine 5.9 H (0.8-1.5) mg/dL Glucose 406 H (75-100) mg/dL POC Glucose (70-105) Lactic Acid 8.50 H* (0.7-2.0) mmol/L Calcium 7.6 L (8.4-10.2) mg/dL Phosphorus (2.5-4.5) mg/dL Magnesium (1.7-2.3) mg/dL Total Creatine Kinase (55-170) units/L Troponin T (0.00-0.029) ng/mL Total Protein (6.3-8.2) g/dL Albumin (3.9-5) g/dL Cholesterol (50-199) mg/dL LDL Cholesterol Direct (50-130) mg/dL HDL Cholesterol (40-59) mg/dL Urine WBC (Auto) > 182.0 H (0.0-6.0) /HPF - Imaging and Cardiology Chest x-ray: report reviewed, image reviewed (X-ray does not show any obvious pneumonia) Assessment and Plan Cultures: 10/11/2018 blood culture: In process A/P: 58-year-old male with diabetes mellitus, recent admission in August 2018 for an anal abscess, colostomy was sent to the emergency room from an SNF earlier this morning after he was noted to have a fever with shaking chills. Admitted with: #1 Severe sepsis with septic shock: Present on admission. Source could be either catheter associated urinary tract infection versus infected and necrotic sacral wound. Currently on pressors. Will need broad-spectrum antimicrobials: IV cefepime, Flagyl and vancomycin. #2 Catheter associated urinary tract infection: POA. UA showing significant pyuria. Will order Suarez exchange. Follow-up urine culture. #3 Sacral decubitus ulcer, infected, stage 4: recent anal abscess status post debridement with hospitalization at [facility] in August 2018. Request records from their facility. Recommend general surgery consult due to concerns for necrotic and infected wound and possible need for debridement. We will add anaerobic coverage. #4 Acute kidney injury/acute renal failure: Present on admission. Renally dose antimicrobials. #5 Elevated troponins: Cardiology consulted. #6 Acute encephalopathy: probably from sepsis. Recs: Change Suarez catheter IV cefepime, vancomycin and Flagyl Renally dose cefepime and vancomycin Consider general surgery consult to evaluate for need for debridement of sacral decubitus Follow up urine and blood cultures Request records from [facility] regarding anal abscess and recent ho spitalization Remove right femoral CVL when feasible D/W Dr. Ramsey. Will follow along. Please call with questions. MD Yaquelin Bass[facility] C: [phone] O: [phone] F: [phone]
[2018-10-11] MEDS ORDERED: NACL 0.9% 1000 ML 1,000 ML IV SCH (12:00)
[2018-10-11] MEDS: SODIUM CHLORIDE FLUSH SYRINGE 10 ML IV SCH ×2 (12:04→21:04)
[2018-10-11 12:56] LABS: Calcium 7.5 mg/dL (8.4-10.2)
[2018-10-11 12:58] LABS: Creatine Kinase MB 3.5 ng/mL (0.0-4.0)
[2018-10-11] MEDS: FLAGYL 500 MG/100 ML 500 MG/100 ML BAG IV SCH ×2 (13:03→21:03)
[2018-10-11] MEDS: D5W/0.45% NACL/KCL 20 MEQ 20 MEQ/1,000 ML BAG IV SCH (15:06)
[2018-10-11 15:14] LABS: Calcium 7.1 mg/dL (8.4-10.2)
--- NOTE | 2018-10-11 15:25 | Event Note ---
Date: 10/11/18 Pt is having an ECHO done. I will see him tomorrow.
[2018-10-11] MEDS ORDERED: CARDIZEM IV ONE (16:28)
[2018-10-11] MEDS ORDERED: MAXIPIME/NS 2 GM/100 ML 2 GM/100 ML BAG IV ONE (17:00)
[2018-10-11] MEDS: Vasostrict 20 UNIT in NACL 0.9% 100 ML IV SCH (17:06)
[2018-10-11] MEDS: MAXIPIME/NS 2 GM/100 ML 2 GM/100 ML BAG IV SCH (17:33)
[2018-10-11] MEDS: DUONEB *Not for PRN Use IH SCH ×3 (17:37→20:46)
[2018-10-11 18:30] LABS: Creatine Kinase MB 2.8 ng/mL (0.0-4.0)
[2018-10-11] MEDS ORDERED: SODIUM BICARBONATE 150 MEQ in D5W 1,000 ML IV SCH (19:00)
[2018-10-11 23:25] LABS: Calcium 6.6 mg/dL (8.4-10.2)
[2018-10-12] MEDS ORDERED: KCL 10MEQ/100ML 10 MEQ/100 ML BAG IV SCH ×2 (01:05→09:00)
[2018-10-12] MEDS: LEVOPHED DRIP 4 MG/NS 250 ML 4 MG/250 ML BAG IV SCH ×2 (01:08→07:10)
[2018-10-12] MEDS: KCL 10MEQ/100ML 10 MEQ/100 ML BAG IV SCH ×4 (01:10→05:35)
[2018-10-12] MEDS: Vasostrict 20 UNIT in NACL 0.9% 100 ML IV SCH (01:55)
[2018-10-12] MEDS: DUONEB *Not for PRN Use IH SCH ×3 (03:10→14:14)
[2018-10-12] MEDS ORDERED: CARDIZEM IV ONE (04:14)
[2018-10-12 04:32] LABS: Hemoglobin 6.7 gm/dl (11.8-15.2); Mean Corpuscular HGB Conc 35 % (32-34); Mean Corpuscular Volume 87 fl (84-94); Platelet Count 223 K/mm3 (140-440); Red Blood Count 2.22 M/mm3 (3.65-5.03); Red Cell Distribution Width 15.8 % (13.2-15.2)
[2018-10-12] MEDS: CARDIZEM/D5W 100MG/100ML 100 MG/100 ML BAG IV SCH ×2 (04:42→18:09)
[2018-10-12 04:51] LABS: Hematocrit 19.4 % (35.5-45.6)
[2018-10-12 04:56] LABS: Albumin 1.8 g/dL (3.9-5); Calcium 6.4 mg/dL (8.4-10.2)
[2018-10-12] MEDS ORDERED: NACL 0.9% 500 ML 500 ML IV ONE (04:57)
[2018-10-12] MEDS ORDERED: TYLENOL PO PRN (06:45)
[2018-10-12] MEDS: FLAGYL 500 MG/100 ML 500 MG/100 ML BAG IV SCH ×3 (07:09→22:13)
[2018-10-12 08:07] LABS: Calcium 6.4 mg/dL (8.4-10.2)
[2018-10-12] MEDS ORDERED: MAGNESIUM SULFATE IV ONE (08:15)
[2018-10-12] MEDS ORDERED: MAGNESIUM SULFATE 1 GM in NACL 0.9% 50 ML IV PRN (08:16)
[2018-10-12] MEDS ORDERED: MAGNESIUM SULFATE 2GM/50ML 2 GM/50 ML BAG IV PRN (08:16)
[2018-10-12] MEDS ORDERED: KCL 20MEQ/100ML 20 MEQ/100 ML BAG IV PRN ×2 (08:16)
[2018-10-12] MEDS ORDERED: MAGNESIUM SULFATE 4GM/100ML 4 GM/100 ML BAG IV PRN (08:16)
[2018-10-12] MEDS ORDERED: SODIUM PHOSPHATE 15 MMOL in NACL 0.9% 250ML 150 ML IV PRN (08:16)
[2018-10-12] MEDS ORDERED: D50W (25GM) Syringe IV PRN (08:19)
[2018-10-12] MEDS ORDERED: MAGNESIUM SULFATE 4GM/100ML 4 GM/100 ML BAG IV ONE (09:00)
[2018-10-12] MEDS ORDERED: MAGNESIUM SULFATE 2GM/50ML 2 GM/50 ML BAG IV ONE (09:00)
--- NOTE | 2018-10-12 09:11 | Progress Note ---
Assessment and Plan Impression: * Acute kidney secondary to ATN * Sepsis - ?urinary source --Blood cx - NGTD --Urine cx - greater than 2 organisms * Metabolic acidosis secondary to lactic acidosis * UTI * Hypokalemia * Anemia Plan: * Renal function improved - SCr trending down * D/C Bicarb gtt; IVF per primary team * Replete K prn - note orders * Abx per primary team * Transfusion per primary team - pRBC transfusion in progress * Pressors prn to maintain MAP>65 * Replete lytes prn * Dose medications for renal function * Avoid potential nephrotoxins Subjective Date of service: 10/12/18 Interval history: No acute events overnight Objective - Vital Signs Vital signs: Vital Signs - 12hr 10/11/18 10/11/18 10/11/18 21:10 21:20 21:30 Temperature Pulse Rate 104 H 100 H 103 H Respiratory 26 H 25 H 25 H Rate Blood Pressure 97/62 105/61 108/64 O2 Sat by Pulse 99 99 96 Oximetry 10/11/18 10/11/18 10/11/18 21:40 21:50 22:00 Temperature Pulse Rate 102 H 102 H 103 H Respiratory 28 H 29 H 26 H Rate Blood Pressure 108/64 102/62 106/62 O2 Sat by Pulse 98 98 98 Oximetry 10/11/18 10/11/18 10/11/18 22:10 22:18 22:20 Temperature Pulse Rate 106 H 104 H 104 H Respiratory 22 26 H 28 H Rate Blood Pressure 106/62 100/69 100/69 O2 Sat by Pulse 98 98 98 Oximetry 10/11/18 10/11/18 10/11/18 22:30 22:36 22:40 Temperature Pulse Rate 103 H 111 H 103 H Respiratory 28 H 21 27 H Rate Blood Pressure 104/63 104/63 104/63 O2 Sat by Pulse 98 98 Oximetry 10/11/18 10/11/18 10/11/18 22:50 23:00 23:10 Temperature Pulse Rate 104 H 104 H 103 H Respiratory 27 H 24 27 H Rate Blood Pressure 103/64 102/62 102/62 O2 Sat by Pulse 98 98 Oximetry 10/11/18 10/11/18 10/11/18 23:20 23:30 23:40 Temperature Pulse Rate 105 H 102 H 102 H Respiratory 28 H 19 26 H Rate Blood Pressure 100/62 106/67 106/67 O2 Sat by Pulse 99 99 Oximetry 10/11/18 10/12/18 10/12/18 23:50 00:00 00:10 Temperature 97.7 F Pulse Rate 102 H 103 H 102 H Respiratory 26 H 27 H 13 Rate Blood Pressure 101/63 109/66 109/66 O2 Sat by Pulse 99 98 99 Oximetry 10/12/18 10/12/18 10/12/18 00:20 04:42 08:38 Temperature 98.5 F Pulse Rate 101 H 145 H 117 H Respiratory 25 H 13 Rate Blood Pressure 98/65 98/53 94/67 O2 Sat by Pulse 99 94 Oximetry 10/12/18 08:53 Temperature 98.3 F Pulse Rate 118 H Respiratory 14 Rate Blood Pressure 103/73 O2 Sat by Pulse 94 Oximetry - General Appearance General appearance: chronically ill EENT: other (poor dentition) Respiratory: Present: Clear to Ascultation Cardiology: regular, tachycardia Gastrointestinal: other (ostomy) Integumentary: no rash Psychiatric: cooperative - Lab 10/12/18 19:23 10/12/18 12:55 Most recent lab results Calcium 6.4 mg/dL (8.4-10.2) L 10/12/18 06:25 Phosphorus 4.80 mg/dL (2.5-4.5) H 10/11/18 06:51 Magnesium 1.30 mg/dL (1.7-2.3) L 10/12/18 04:20 Medications & Allergies - Medications Allergies/Adverse Reactions: Allergies No Known Allergies Allergy (Unverified 10/11/18 05:00) Home Medications: Home Medications Medication Instructions Recorded Confirmed Last Taken Type Acetaminophen [Acetaminophen ER] 650 mg PO Q6H PRN 10/11/18 10/11/18 Unknown History Allopurinol 300 mg PO QDAY 10/11/18 10/11/18 Unknown History Amlodipine Besylate [Norvasc] 5 mg PO DAILY 10/11/18 10/11/18 Unknown History Atorvastatin [Lipitor Tab] 80 mg PO QHS 10/11/18 10/11/18 Unknown History Calcium Carbonate [Calcium Antacid] 200 mg PO TID 10/11/18 10/11/18 Unknown History Collagenase Clostridium Hist. 1 applic TP BID 10/11/18 10/11/18 Unknown History [Santyl] Collagenase Clostridium Hist. 1 applic TP QPM 10/11/18 10/11/18 Unknown History [Santyl] HYDROcodone/APAP 7.5-325 [[place] 1 each PO Q4HR PRN 10/11/18 10/11/18 Unknown History 7.5/325] Metformin HCl [Glucophage] 500 mg PO BID 10/11/18 10/11/18 Unknown History Mirtazapine [Remeron] 15 mg PO HS 10/11/18 10/11/18 Unknown History Sulfamethoxazole/Trimethoprim 1 each PO BID 10/11/18 10/11/18 Unknown History [Bactrim DS TAB] Active Medications: Generic Name Dose Route Start Last Admin Trade Name Freq PRN Reason Stop Dose Admin Acetaminophen 650 mg 10/12/18 06:45 Tylenol PO Q4H PRN Pain, Mild (1-3) Albuterol 2.5 mg 10/11/18 08:21 Proventil IH Q3HRT PRN Shortness Of Breath Albuterol/Ipratropium 1 ampul 10/11/18 14:00 10/12/18 03:10 Duoneb *Not For Prn Use* IH Not Given Q6HRT FRANCISCO Dextrose 0 ml 10/11/18 06:14 10/12/18 01:48 D50w (25gm) Syringe IV 20 ml ONCE PRN Administration Hypoglycemia Norepinephrine 4 mg in 250 mls @ 7.5 mls/hr 10/11/18 06:00 10/12/18 07:10 Levophed Drip 4 Mg/Ns 250 Ml IV 10 mcg/min TITR FRANCISCO 37.5 mls/hr Administration Protocol 2 MCG/MIN Cefepime HCl 2 gm in 100 mls @ 200 mls/hr 10/11/18 18:00 10/11/18 17:33 Maxipime/Ns 2 Gm/100 Ml IV 200 mls/hr Q24H FRANCISCO Administration Protocol Metronidazole 500 mg in 100 mls @ 100 mls/hr 10/11/18 14:00 10/12/18 07:09 Flagyl 500 Mg/100 Ml IV 100 mls/hr Q8HR FRANCISCO Administration Protocol Potassium Chloride/Dextrose/Sod Cl 20 meq in 1,000 mls @ 125 mls/hr 10/11/18 15:00 10/11/18 15:06 D5w/0.45% Nacl/Kcl 20 Meq IV 125 mls/hr DIRECT FRANCISCO Administration Vasopressin 20 unit/ Sodium 101 mls @ 9.09 mls/hr 10/11/18 17:00 10/12/18 01:55 Chloride IV 0.03 units/min TITR FRANCISCO 9.09 mls/hr Administration 0.03 UNITS/MIN Sodium Bicarbonate 150 meq/ 1,150 mls @ 150 mls/hr 10/11/18 19:00 Dextrose IV DIRECT FRANCISCO Diltiazem HCl 100 mg in 100 mls @ 5 mls/hr 10/12/18 05:00 10/12/18 04:42 Cardizem/D5w 100mg/100ml IV 5 mg/hr TITR FRANCISCO 5 mls/hr Administration Protocol 5 MG/HR Magnesium Sulfate 1 gm/ Sodium 52 mls @ 26 mls/hr 10/12/18 08:16 Chloride IV Q2H PRN Magnesium level 1.8-2 mg/dL Magnesium Sulfate 2 gm in 50 mls @ 25 mls/hr 10/12/18 08:16 Magnesium Sulfate 2gm/50ml IV Q2H PRN Magnesium level 1.5-1.7 mg/dL Magnesium Sulfate 4 gm in 100 mls @ 25 mls/hr 10/12/18 08:16 Magnesium Sulfate 4gm/100ml IV Q4H PRN Magnesium level < 1.4 mg/dL Potassium Chloride 10 meq in 100 mls @ 100 mls/hr 10/12/18 09:00 Kcl 10meq/100ml IV 10/12/18 12:59 Q1H FRANCISCO Potassium Chloride 20 meq in 100 mls @ 100 mls/hr 10/12/18 08:16 Kcl 20meq/100ml IV Q1H PRN Potassium 2.6-2.9 mEq/L Potassium Chloride 20 meq in 100 mls @ 100 mls/hr 10/12/18 08:16 Kcl 20meq/100ml IV Q1H PRN Potassium 3-3.5 mEq/L Sodium Phosphate 15 mmol/ 155 mls @ 40 mls/hr 10/12/18 08:16 Sodium Chloride IV Q4H PRN Phosphorous level 1.2-2.5 mg/d Potassium Chloride 20 meq in 100 mls @ 100 mls/hr 10/12/18 09:30 Kcl 20meq/100ml IV 10/12/18 11:29 Q1H FRANCISCO Magnesium Sulfate 4 gm in 100 mls @ 25 mls/hr 10/12/18 09:00 Magnesium Sulfate 4gm/100ml IV 10/12/18 12:59 ONCE ONE Insulin Human Lispro 0 unit 10/12/18 09:00 Humalog SUB-Q Q6HR [facility] Protocol Magnesium Sulfate 1 gm 10/12/18 08:15 Magnesium Sulfate IV 10/12/18 08:16 ONCE ONE Ondansetron HCl 4 mg 10/11/18 09:30 Zofran IV Q8H PRN Nausea And Vomiting Sodium Chloride 10 ml 10/11/18 10:00 10/11/18 21:04 Sodium Chloride Flush Syringe 10 Ml IV 10 ml BID FRANCISCO Administration Sodium Chloride 10 ml 10/11/18 09:00 Sodium Chloride Flush Syringe 10 Ml IV PRN PRN LINE FLUSH
[2018-10-12] MEDS: KCL 20MEQ/100ML 20 MEQ/100 ML BAG IV SCH ×2 (09:23→10:54)
[2018-10-12] MEDS: HumaLOG SUB-Q SCH ×3 (09:46→17:56)
[2018-10-12] MEDS: SODIUM CHLORIDE FLUSH SYRINGE 10 ML IV SCH ×2 (09:47→22:13)
[2018-10-12] MEDS ORDERED: NACL 0.9% 1000 ML 1,000 ML IV SCH (10:00)
--- NOTE | 2018-10-12 10:39 | Progress Note ---
Assessment and Plan Cultures: 10/11/2018 blood culture: no growth 10/11/2018 urine culture: mixed growth A/P: 58-year-old male with diabetes mellitus, recent admission in August 2018 for an anal abscess, colostomy was sent to the emergency room from an SNF earlier this morning after he was noted to have a fever with shaking chills. Admitted with: #1 Severe sepsis with septic shock: Present on admission. Source could be either catheter associated urinary tract infection versus infected and necrotic sacral wound. Currently on pressors. Will continue broad-spectrum antimicrobials: IV Cefepime, Flagyl and vancomycin. #2 Catheter associated urinary tract infection: POA. UA showing significant pyuria. Suarez exchanged. Follow-up urine culture. #3 Sacral decubitus ulcer, infected, stage 4: recent anal abscess status post debridement with hospitalization at [facility] in August 2018. Request records from their facility. Awaiting general surgery consult due to concerns for necrotic and infected wound and possible need for debridement. #4 Acute kidney injury/acute renal failure: Present on admission. Renally dose antimicrobials. #5 Elevated troponins: Cardiology on board. #6 Acute encephalopathy: probably from sepsis. #7 Acute anemia: GI consulted. Getting transfusion. Recs: Still on pressors Continue IV cefepime, vancomycin and Flagyl Renally dose cefepime and vancomycin Awaiting general surgery eval for possible debridement of sacral decubitus Follow up urine and blood cultures Request records from [facility] regarding anal abscess and recent hospitalization MD [facility] C: [phone] O: [phone] F: [phone] Subjective Date of service: 10/12/18 Interval history: Still on pressors. Confused. Agitated requiring restraints. Objective - Exam Narrative Exam: Physical Exam: Constitutional: Alert, cooperative. No acute distress Head, Ears, Nose: Normocephalic, atraumatic. External ears, nose normal Eyes: Conjunctivae/corneas clear. No icterus. No ptosis. Neck: Supple, no meningeal signs Oral: dentition poor, no thrush Cardiovascular: S1, S2 normal. Respiratory: Good air entry, clear to auscultation bilaterally GI: Soft, bowel sounds normal. No peritoneal signs. suarez + Musculoskeletal: No pedal edema, no cyanosis. Large sacral wound, superior portion with foul smelling necrotic/devitalized tissue. Skin: No rash. Hem/Lymphatic: No palpable cervical or supraclavicular nodes. No lymphangitis Psych: Mood ok. Affect flat Neurological: Awake, alert, but not oriented. - Constitutional Vitals: Vital Signs Temp Pulse Resp BP Pulse Ox 99.0 F 128 H 19 109/69 97 10/12/18 09:53 10/12/18 09:53 10/12/18 09:53 10/12/18 09:53 10/12/18 09:53 Temperature -Last 24 Hours Temperature 99.0 F Temperature 98.9 F Temperature 98.3 F Temperature 98.5 F Temperature 97.7 F Temperature 96.6 F Temperature 101.4 F Temperature 99.3 F - Labs CBC & Chem 7: 10/12/18 04:20 10/12/18 06:25 Labs: Abnormal lab results 10/11/18 10/11/18 10/11/18 Range/Units 09:05 11:12 12:17 WBC (4.5-11.0) K/mm3 RBC (3.65-5.03) M/mm3 Hgb (11.8-15.2) gm/dl Hct (35.5-45.6) % MCHC (32-34) % RDW (13.2-15.2) % POC ABG pCO2 (35-45) POC ABG pO2 (80-105) Sodium (137-145) mmol/L Potassium (3.6-5.0) mmol/L Chloride (98-107) mmol/L Carbon Dioxide (22-30) mmol/L BUN (9-20) mg/dL Creatinine (0.8-1.5) mg/dL Glucose (75-100) mg/dL POC Glucose 299 H 261 H (70-105) Calcium (8.4-10.2) mg/dL Magnesium (1.7-2.3) mg/dL Total Creatine Kinase (55-170) units/L Total Protein (6.3-8.2) g/dL Albumin (3.9-5) g/dL Urine WBC (Auto) (0.0-6.0) /HPF Crossmatch See Detail 10/11/18 10/11/18 10/11/18 Range/Units 12:18 13:05 14:13 WBC (4.5-11.0) K/mm3 RBC (3.65-5.03) M/mm3 Hgb (11.8-15.2) gm/dl Hct (35.5-45.6) % MCHC (32-34) % RDW (13.2-15.2) % POC ABG pCO2 (35-45) POC ABG pO2 (80-105) Sodium 135 L (137-145) mmol/L Potassium 2.8 L* (3.6-5.0) mmol/L Chloride 97.9 L (98-107) mmol/L Carbon Dioxide 14 L (22-30) mmol/L BUN 67 H (9-20) mg/dL Creatinine 6.0 H (0.8-1.5) mg/dL Glucose 246 H (75-100) mg/dL POC Glucose 251 H 233 H (70-105) Calcium 7.5 L (8.4-10.2) mg/dL Magnesium (1.7-2.3) mg/dL Total Creatine Kinase 1110 H (55-170) units/L Total Protein (6.3-8.2) g/dL Albumin (3.9-5) g/dL Urine WBC (Auto) (0.0-6.0) /HPF Crossmatch 10/11/18 10/11/18 10/11/18 Range/Units 14:34 15:08 16:00 WBC (4.5-11.0) K/mm3 RBC (3.65-5.03) M/mm3 Hgb (11.8-15.2) gm/dl Hct (35.5-45.6) % MCHC (32-34) % RDW (13.2-15.2) % POC ABG pCO2 (35-45) POC ABG pO2 (80-105) Sodium 135 L (137-145) mmol/L Potassium 2.7 L* (3.6-5.0) mmol/L Chloride (98-107) mmol/L Carbon Dioxide 18 L (22-30) mmol/L BUN 68 H (9-20) mg/dL Creatinine 5.0 H (0.8-1.5) mg/dL Glucose 191 H (75-100) mg/dL POC Glucose 213 H 224 H (70-105) Calcium 7.1 L (8.4-10.2) mg/dL Magnesium (1.7-2.3) mg/dL Total Creatine Kinase (55-170) units/L Total Protein (6.3-8.2) g/dL Albumin (3.9-5) g/dL Urine WBC (Auto) (0.0-6.0) /HPF Crossmatch 10/11/18 10/11/18 10/11/18 Range/Units 17:20 17:53 17:58 WBC (4.5-11.0) K/mm3 RBC (3.65-5.03) M/mm3 Hgb (11.8-15.2) gm/dl Hct (35.5-45.6) % MCHC (32-34) % RDW (13.2-15.2) % POC ABG pCO2 28.2 L (35-45) POC ABG pO2 60 L (80-105) Sodium (137-145) mmol/L Potassium (3.6-5.0) mmol/L Chloride (98-107) mmol/L Carbon Dioxide (22-30) mmol/L BUN (9-20) mg/dL Creatinine (0.8-1.5) mg/dL Glucose (75-100) mg/dL POC Glucose 187 H (70-105) Calcium (8.4-10.2) mg/dL Magnesium (1.7-2.3) mg/dL Total Creatine Kinase 933 H (55-170) units/L Total Protein (6.3-8.2) g/dL Albumin (3.9-5) g/dL Urine WBC (Auto) (0.0-6.0) /HPF Crossmatch 10/11/18 10/11/18 10/11/18 Range/Units 18:12 18:58 20:16 WBC (4.5-11.0) K/mm3 RBC (3.65-5.03) M/mm3 Hgb (11.8-15.2) gm/dl Hct (35.5-45.6) % MCHC (32-34) % RDW (13.2-15.2) % POC ABG pCO2 (35-45) POC ABG pO2 (80-105) Sodium (137-145) mmol/L Potassium (3.6-5.0) mmol/L Chloride (98-107) mmol/L Carbon Dioxide (22-30) mmol/L BUN (9-20) mg/dL Creatinine (0.8-1.5) mg/dL Glucose (75-100) mg/dL POC Glucose 189 H 192 H 179 H (70-105) Calcium (8.4-10.2) mg/dL Magnesium (1.7-2.3) mg/dL Total Creatine Kinase (55-170) units/L Total Protein (6.3-8.2) g/dL Albumin (3.9-5) g/dL Urine WBC (Auto) (0.0-6.0) /HPF Crossmatch 10/11/18 10/11/18 10/11/18 Range/Units 21:10 22:14 22:42 WBC (4.5-11.0) K/mm3 RBC (3.65-5.03) M/mm3 Hgb (11.8-15.2) gm/dl Hct (35.5-45.6) % MCHC (32-34) % RDW (13.2-15.2) % POC ABG pCO2 (35-45) POC ABG pO2 (80-105) Sodium 136 L (137-145) mmol/L Potassium 2.9 L* (3.6-5.0) mmol/L Chloride (98-107) mmol/L Carbon Dioxide 17 L (22-30) mmol/L BUN 61 H (9-20) mg/dL Creatinine 4.0 H (0.8-1.5) mg/dL Glucose 122 H (75-100) mg/dL POC Glucose 160 H 145 H (70-105) Calcium 6.6 L (8.4-10.2) mg/dL Magnesium (1.7-2.3) mg/dL Total Creatine Kinase (55-170) units/L Total Protein (6.3-8.2) g/dL Albumin (3.9-5) g/dL Urine WBC (Auto) (0.0-6.0) /HPF Crossmatch 10/11/18 10/11/18 10/12/18 Range/Units 23:09 Unknown 00:18 WBC (4.5-11.0) K/mm3 RBC (3.65-5.03) M/mm3 Hgb (11.8-15.2) gm/dl Hct (35.5-45.6) % MCHC (32-34) % RDW (13.2-15.2) % POC ABG pCO2 (35-45) POC ABG pO2 (80-105) Sodium (137-145) mmol/L Potassium (3.6-5.0) mmol/L Chloride (98-107) mmol/L Carbon Dioxide (22-30) mmol/L BUN (9-20) mg/dL Creatinine (0.8-1.5) mg/dL Glucose (75-100) mg/dL POC Glucose 129 H 113 H (70-105) Calcium (8.4-10.2) mg/dL Magnesium (1.7-2.3) mg/dL Total Creatine Kinase (55-170) units/L Total Protein (6.3-8.2) g/dL Albumin (3.9-5) g/dL Urine WBC (Auto) > 182.0 H (0.0-6.0) /HPF Crossmatch 10/12/18 10/12/18 10/12/18 Range/Units 01:42 02:03 03:09 WBC (4.5-11.0) K/mm3 RBC (3.65-5.03) M/mm3 Hgb (11.8-15.2) gm/dl Hct (35.5-45.6) % MCHC (32-34) % RDW (13.2-15.2) % POC ABG pCO2 (35-45) POC ABG pO2 (80-105) Sodium (137-145) mmol/L Potassium (3.6-5.0) mmol/L Chloride (98-107) mmol/L Carbon Dioxide (22-30) mmol/L BUN (9-20) mg/dL Creatinine (0.8-1.5) mg/dL Glucose (75-100) mg/dL POC Glucose 51 L 116 H 129 H (70-105) Calcium (8.4-10.2) mg/dL Magnesium (1.7-2.3) mg/dL Total Creatine Kinase (55-170) units/L Total Protein (6.3-8.2) g/dL Albumin (3.9-5) g/dL Urine WBC (Auto) (0.0-6.0) /HPF Crossmatch 10/12/18 10/12/18 10/12/18 Range/Units 04:20 04:20 04:22 WBC 26.8 H (4.5-11.0) K/mm3 RBC 2.22 L (3.65-5.03) M/mm3 Hgb 6.7 L (11.8-15.2) gm/dl Hct 19.4 L* (35.5-45.6) % MCHC 35 H (32-34) % RDW 15.8 H (13.2-15.2) % POC ABG pCO2 (35-45) POC ABG pO2 (80-105) Sodium (137-145) mmol/L Potassium 2.6 L* (3.6-5.0) mmol/L Chloride (98-107) mmol/L Carbon Dioxide 20 L (22-30) mmol/L BUN 56 H (9-20) mg/dL Creatinine 4.0 H (0.8-1.5) mg/dL Glucose 134 H (75-100) mg/dL POC Glucose 186 H (70-105) Calcium 6.4 L (8.4-10.2) mg/dL Magnesium 1.30 L (1.7-2.3) mg/dL Total Creatine Kinase (55-170) units/L Total Protein 5.8 L (6.3-8.2) g/dL Albumin 1.8 L (3.9-5) g/dL Urine WBC (Auto) (0.0-6.0) /HPF Crossmatch 10/12/18 10/12/18 10/12/18 Range/Units 05:25 06:25 07:34 WBC (4.5-11.0) K/mm3 RBC (3.65-5.03) M/mm3 Hgb (11.8-15.2) gm/dl Hct (35.5-45.6) % MCHC (32-34) % RDW (13.2-15.2) % POC ABG pCO2 (35-45) POC ABG pO2 (80-105) Sodium (137-145) mmol/L Potassium 2.7 L* (3.6-5.0) mmol/L Chloride (98-107) mmol/L Carbon Dioxide 19 L (22-30) mmol/L BUN 51 H (9-20) mg/dL Creatinine 3.6 H (0.8-1.5) mg/dL Glucose 113 H (75-100) mg/dL POC Glucose 131 H 120 H (70-105) Calcium 6.4 L (8.4-10.2) mg/dL Magnesium (1.7-2.3) mg/dL Total Creatine Kinase (55-170) units/L Total Protein (6.3-8.2) g/dL Albumin (3.9-5) g/dL Urine WBC (Auto) (0.0-6.0) /HPF Crossmatch
[2018-10-12] MEDS: D5W/0.45% NACL/KCL 20 MEQ 20 MEQ/1,000 ML BAG IV SCH ×2 (11:02→19:18)
--- NOTE | 2018-10-12 11:07 | Progress Note ---
Assessment and Plan Acute Toxic metabolic encephalopathy Septic Shock Severe Sepsis DKA MALCOLM secondary to vasomotor nephropathy Metabolic acidosis Colostomy Unstagable scaral pressure ulcer POA Afib with RVR Troponemia- Type 2 NSTEMI Anemia of chronic disease Hypokalemia Severe Protein calorie malnutrition - transition Insulin from IV to SQ - Hold Heparin drip re: Anemia not appropriately responsive to transfusions - continue volume resuscitation and stop vasopressin for target MAP > 65 mmHg - Surgical evaluation ongoing re: sacral decubitus - continue Sepsis protocol - continue cefepime empirically and follow cultures - transition to oral cardizem per social media intern - G.I. consult placed for anemia evaluation - PT/OT consult - follow Renal ultrasound - PICC team for Access and D/C Right femoral Line. - continue fall precautions - Continue GI & VTE prophylaxis - continue mobility protocol for pressure ulcer prophylaxis - continue other care per attending / other consultants ...re-evaluate in am & prn FULL CODE The high probability of a clinically significant, sudden or life threatening deterioration of the [CARDIAC, RENAL, ] system(s) required my full and direct attention, intervention and personal management. The aggregate critical care time was [36] minutes. This time is in addition to time spent performing reported procedures but includes the following: [X] Data Review and interpretation [X] Patient assessment and monitoring of vital signs [X] Documentation [X] Medication orders and management Subjective Date of service: 10/12/18 Principal diagnosis: Acute Toxic metabolic encephalopathy; Septic Shock; Severe Sepsis; DKA Interval history: Patient is seen today for: Acute Toxic metabolic encephalopathy; Septic Shock; Severe Sepsis; DKA Seen and examined at bedside; 24hour events reviewed; nursing and respiratory care staff consulted; no adverse overnight events reported to me; resting peacefully in bed; intermittently screaming; transitioning off I.V. insulin now; No emesis or overt aspiration; thirsty; remains on vasopressin drip; denies acute chest pains or palpitations Objective Vital Signs - 12hr 10/11/18 10/11/18 10/11/18 23:00 23:10 23:20 Temperature Pulse Rate 104 H 103 H 105 H Pulse Rate [ Anterior Bilateral Throughout] Respiratory 24 27 H 28 H Rate Respiratory Rate [Anterior Bilateral Throughout] Blood Pressure 102/62 102/62 100/62 O2 Sat by Pulse 98 99 Oximetry 10/11/18 10/11/18 10/11/18 23:30 23:40 23:50 Temperature Pulse Rate 102 H 102 H 102 H Pulse Rate [ Anterior Bilateral Throughout] Respiratory 19 26 H 26 H Rate Respiratory Rate [Anterior Bilateral Throughout] Blood Pressure 106/67 106/67 101/63 O2 Sat by Pulse 99 99 Oximetry 10/12/18 10/12/18 10/12/18 00:00 00:10 00:20 Temperature 97.7 F Pulse Rate 103 H 102 H 101 H Pulse Rate [ Anterior Bilateral Throughout] Respiratory 27 H 13 25 H Rate Respiratory Rate [Anterior Bilateral Throughout] Blood Pressure 109/66 109/66 98/65 O2 Sat by Pulse 98 99 99 Oximetry 10/12/18 10/12/18 10/12/18 02:20 02:30 02:40 Temperature Pulse Rate 105 H 104 H 106 H Pulse Rate [ Anterior Bilateral Throughout] Respiratory 26 H 17 24 Rate Respiratory Rate [Anterior Bilateral Throughout] Blood Pressure 109/67 114/66 114/66 O2 Sat by Pulse 97 97 98 Oximetry 10/12/18 10/12/18 10/12/18 02:50 03:00 03:10 Temperature Pulse Rate 108 H 111 H 107 H Pulse Rate [ Anterior Bilateral Throughout] Respiratory 26 H 28 H 24 Rate Respiratory Rate [Anterior Bilateral Throughout] Blood Pressure 106/64 101/57 101/57 O2 Sat by Pulse 97 98 97 Oximetry 10/12/18 10/12/18 10/12/18 03:20 03:30 03:40 Temperature Pulse Rate 109 H 105 H 104 H Pulse Rate [ Anterior Bilateral Throughout] Respiratory 24 23 26 H Rate Respiratory Rate [Anterior Bilateral Throughout] Blood Pressure 110/61 115/65 115/65 O2 Sat by Pulse 98 98 97 Oximetry 10/12/18 10/12/18 10/12/18 03:50 04:00 04:10 Temperature Pulse Rate 157 H 154 H 154 H Pulse Rate [ Anterior Bilateral Throughout] Respiratory 29 H 17 19 Rate Respiratory Rate [Anterior Bilateral Throughout] Blood Pressure 73/48 76/49 85/49 O2 Sat by Pulse 96 96 95 Oximetry 10/12/18 10/12/18 10/12/18 04:20 04:30 04:40 Temperature Pulse Rate 153 H 151 H 149 H Pulse Rate [ Anterior Bilateral Throughout] Respiratory 25 H 14 21 Rate Respiratory Rate [Anterior Bilateral Throughout] Blood Pressure 84/54 81/54 89/52 O2 Sat by Pulse 95 97 95 Oximetry 10/12/18 10/12/18 10/12/18 04:42 04:50 05:00 Temperature Pulse Rate 145 H 146 H 110 H Pulse Rate [ Anterior Bilateral Throughout] Respiratory 28 H 27 H Rate Respiratory Rate [Anterior Bilateral Throughout] Blood Pressure 98/53 98/53 116/67 O2 Sat by Pulse 94 95 Oximetry 10/12/18 10/12/18 10/12/18 05:10 05:20 05:30 Temperature Pulse Rate 112 H 114 H 114 H Pulse Rate [ Anterior Bilateral Throughout] Respiratory 26 H 17 28 H Rate Respiratory Rate [Anterior Bilateral Throughout] Blood Pressure 116/67 114/64 110/68 O2 Sat by Pulse 96 96 96 Oximetry 10/12/18 10/12/18 10/12/18 05:40 05:50 06:00 Temperature Pulse Rate 113 H 111 H 119 H Pulse Rate [ Anterior Bilateral Throughout] Respiratory 27 H 25 H 28 H Rate Respiratory Rate [Anterior Bilateral Throughout] Blood Pressure 110/68 111/68 116/66 O2 Sat by Pulse 97 97 98 Oximetry 10/12/18 10/12/18 10/12/18 06:10 06:20 06:30 Temperature Pulse Rate 115 H 123 H 120 H Pulse Rate [ Anterior Bilateral Throughout] Respiratory 20 12 15 Rate Respiratory Rate [Anterior Bilateral Throughout] Blood Pressure 116/66 115/64 116/66 O2 Sat by Pulse 97 96 96 Oximetry 10/12/18 10/12/18 10/12/18 06:40 06:50 07:00 Temperature Pulse Rate 122 H 123 H 117 H Pulse Rate [ Anterior Bilateral Throughout] Respiratory 15 18 13 Rate Respiratory Rate [Anterior Bilateral Throughout] Blood Pressure 124/73 115/76 113/66 O2 Sat by Pulse 97 97 98 Oximetry 10/12/18 10/12/18 10/12/18 07:10 07:20 07:30 Temperature Pulse Rate 116 H 122 H 114 H Pulse Rate [ Anterior Bilateral Throughout] Respiratory 13 16 17 Rate Respiratory Rate [Anterior Bilateral Throughout] Blood Pressure 113/66 98/64 93/63 O2 Sat by Pulse 98 98 98 Oximetry 10/12/18 10/12/18 10/12/18 07:40 07:50 08:00 Temperature Pulse Rate 115 H 127 H 112 H Pulse Rate [ Anterior Bilateral Throughout] Respiratory 16 17 19 Rate Respiratory Rate [Anterior Bilateral Throughout] Blood Pressure 93/63 100/59 102/66 O2 Sat by Pulse 98 99 99 Oximetry 10/12/18 10/12/18 10/12/18 08:10 08:20 08:30 Temperature Pulse Rate 112 H 119 H 123 H Pulse Rate [ Anterior Bilateral Throughout] Respiratory 30 H 14 13 Rate Respiratory Rate [Anterior Bilateral Throughout] Blood Pressure 102/66 105/69 94/67 O2 Sat by Pulse 97 98 93 Oximetry 10/12/18 10/12/18 10/12/18 08:38 08:40 08:50 Temperature 98.5 F Pulse Rate 117 H 118 H 118 H Pulse Rate [ Anterior Bilateral Throughout] Respiratory 13 14 23 Rate Respiratory Rate [Anterior Bilateral Throughout] Blood Pressure 94/67 94/67 103/73 O2 Sat by Pulse 94 94 95 Oximetry 10/12/18 10/12/18 10/12/18 08:53 09:00 09:10 Temperature 98.3 F Pulse Rate 118 H 126 H 120 H Pulse Rate [ Anterior Bilateral Throughout] Respiratory 14 11 L 15 Rate Respiratory Rate [Anterior Bilateral Throughout] Blood Pressure 103/73 119/72 119/72 O2 Sat by Pulse 94 95 95 Oximetry 10/12/18 10/12/18 10/12/18 09:14 09:20 09:23 Temperature 98.9 F Pulse Rate 126 H 129 H Pulse Rate [ 119 H Anterior Bilateral Throughout] Respiratory 24 17 Rate Respiratory 20 Rate [Anterior Bilateral Throughout] Blood Pressure 103/72 105/72 O2 Sat by Pulse 98 99 96 Oximetry 10/12/18 10/12/18 10/12/18 09:24 09:30 09:40 Temperature Pulse Rate 123 H 125 H Pulse Rate [ 126 H Anterior Bilateral Throughout] Respiratory 33 H 21 Rate Respiratory 18 Rate [Anterior Bilateral Throughout] Blood Pressure 105/72 103/73 O2 Sat by Pulse 98 97 Oximetry 10/12/18 10/12/18 10/12/18 09:50 09:53 10:00 Temperature 99.0 F Pulse Rate 128 H 128 H 128 H Pulse Rate [ Anterior Bilateral Throughout] Respiratory 32 H 19 15 Rate Respiratory Rate [Anterior Bilateral Throughout] Blood Pressure 109/69 109/69 109/69 O2 Sat by Pulse 96 97 97 Oximetry 10/12/18 10/12/18 10/12/18 10:10 10:20 10:23 Temperature 98.2 F Pulse Rate 130 H 131 H 118 H Pulse Rate [ Anterior Bilateral Throughout] Respiratory 20 12 27 H Rate Respiratory Rate [Anterior Bilateral Throughout] Blood Pressure 116/69 118/67 118/67 O2 Sat by Pulse 95 95 95 Oximetry 10/12/18 10:30 Temperature Pulse Rate 128 H Pulse Rate [ Anterior Bilateral Throughout] Respiratory 13 Rate Respiratory Rate [Anterior Bilateral Throughout] Blood Pressure 110/63 O2 Sat by Pulse 94 Oximetry Constitutional: alert, appears uncomfortable, other (elderly looking AAM, normocephalic and atraumatic with mildly increased resp effort at rest) Eyes: non-icteric ENT: oropharynx dry, other (Mallampati 2) Neck: supple, no lymphadenopathy, no JVD Effort: mildly labored Ascultation: Bilateral: clear Percussion: Bilateral: not dull Cardiovascular: irregular rhythm, other (No R/M) Gastrointestinal: hypoactive bowel sounds, soft, non-tender, non-distended Integumentary: rash, decubitus ulcer (sacral) Extremities: no cyanosis, no edema, pulses normal, no ischemia or petechiae Neurologic: normal mental status, non-focal exam (grossly), pupils equal and round, other (weak lower extremities) Psychiatric: mood appropriate, affect normal CBC and BMP: 10/13/18 05:30 10/13/18 11:15 ABG, PT/INR, D-dimer: ABG POC ABG pH 7.380 (7.35-7.45) 10/11/18 17:53 POC ABG pCO2 28.2 (35-45) L 10/11/18 17:53 POC ABG pO2 60 (80-105) L 10/11/18 17:53 POC ABG HCO3 16.7 10/11/18 17:53 POC ABG Total CO2 18 10/11/18 17:53 POC ABG O2 Sat 91 10/11/18 17:53 PT/INR, D-dimer PT 17.1 Sec. (12.2-14.9) H 10/11/18 05:21 INR 1.35 (0.87-1.13) H 10/11/18 05:21 Abnormal lab findings: Abnormal Labs 10/11/18 10/11/18 10/11/18 05:21 05:21 05:21 WBC 22.3 H RBC 2.62 L Hgb 8.0 L Hct 24.5 L MCHC RDW 16.0 H Seg Neuts % (Manual) 90.0 H Lymphocytes % (Manual) 4.0 L Seg Neutrophils # Man 20.1 H Lymphocytes # (Manual) 0.9 L PT 17.1 H INR 1.35 H POC ABG pCO2 POC ABG pO2 VBG pH Sodium 133 L Potassium 2.8 L* Chloride 94.5 L Carbon Dioxide 11 L BUN 69 H Creatinine 5.0 H Glucose 362 H POC Glucose Lactic Acid Calcium 7.4 L Phosphorus Magnesium Total Creatine Kinase Troponin T 0.116 H* Total Protein 6.2 L Albumin 2.1 L Cholesterol 26 L LDL Cholesterol Direct 4 L HDL Cholesterol 7 L Urine WBC (Auto) Crossmatch 10/11/18 10/11/18 10/11/18 05:21 05:21 05:21 WBC RBC Hgb Hct MCHC RDW Seg Neuts % (Manual) Lymphocytes % (Manual) Seg Neutrophils # Man Lymphocytes # (Manual) PT INR POC ABG pCO2 POC ABG pO2 VBG pH 7.226 L Sodium Potassium Chloride Carbon Dioxide BUN Creatinine Glucose POC Glucose Lactic Acid 7.40 H* Calcium Phosphorus Magnesium Total Creatine Kinase 1094 H Troponin T Total Protein Albumin Cholesterol LDL Cholesterol Direct HDL Cholesterol Urine WBC (Auto) Crossmatch 10/11/18 10/11/18 10/11/18 06:08 06:51 06:51 WBC RBC Hgb Hct MCHC RDW Seg Neuts % (Manual) Lymphocytes % (Manual) Seg Neutrophils # Man Lymphocytes # (Manual) PT INR POC ABG pCO2 POC ABG pO2 VBG pH Sodium 132 L Potassium 3.1 L Chloride 94.3 L Carbon Dioxide 10 L BUN 68 H Creatinine 5.8 H Glucose 402 H POC Glucose Lactic Acid 7.80 H* Calcium 7.8 L Phosphorus 4.80 H Magnesium 0.90 L* Total Creatine Kinase Troponin T Total Protein Albumin Cholesterol LDL Cholesterol Direct HDL Cholesterol Urine WBC (Auto) > 182.0 H Crossmatch 10/11/18 10/11/18 10/11/18 08:56 09:05 10:23 WBC RBC Hgb Hct MCHC RDW Seg Neuts % (Manual) Lymphocytes % (Manual) Seg Neutrophils # Man Lymphocytes # (Manual) PT INR POC ABG pCO2 POC ABG pO2 VBG pH Sodium Potassium Chloride Carbon Dioxide BUN Creatinine Glucose POC Glucose 367 H 305 H Lactic Acid Calcium Phosphorus Magnesium Total Creatine Kinase Troponin T Total Protein Albumin Cholesterol LDL Cholesterol Direct HDL Cholesterol Urine WBC (Auto) Crossmatch See Detail 10/11/18 10/11/18 10/11/18 11:12 12:17 12:18 WBC RBC Hgb Hct MCHC RDW Seg Neuts % (Manual) Lymphocytes % (Manual) Seg Neutrophils # Man Lymphocytes # (Manual) PT INR POC ABG pCO2 POC ABG pO2 VBG pH Sodium 135 L Potassium 2.8 L* Chloride 97.9 L Carbon Dioxide 14 L BUN 67 H Creatinine 6.0 H Glucose 246 H POC Glucose 299 H 261 H Lactic Acid Calcium 7.5 L Phosphorus Magnesium Total Creatine Kinase 1110 H Troponin T Total Protein Albumin Cholesterol LDL Cholesterol Direct HDL Cholesterol Urine WBC (Auto) Crossmatch 10/11/18 10/11/18 10/11/18 13:05 14:13 14:34 WBC RBC Hgb Hct MCHC RDW Seg Neuts % (Manual) Lymphocytes % (Manual) Seg Neutrophils # Man Lymphocytes # (Manual) PT INR POC ABG pCO2 POC ABG pO2 VBG pH Sodium 135 L Potassium 2.7 L* Chloride Carbon Dioxide 18 L BUN 68 H Creatinine 5.0 H Glucose 191 H POC Glucose 251 H 233 H Lactic Acid Calcium 7.1 L Phosphorus Magnesium Total Creatine Kinase Troponin T Total Protein Albumin Cholesterol LDL Cholesterol Direct HDL Cholesterol Urine WBC (Auto) Crossmatch 10/11/18 10/11/18 10/11/18 15:08 16:00 17:20 WBC RBC Hgb Hct MCHC RDW Seg Neuts % (Manual) Lymphocytes % (Manual) Seg Neutrophils # Man Lymphocytes # (Manual) PT INR POC ABG pCO2 POC ABG pO2 VBG pH Sodium Potassium Chloride Carbon Dioxide BUN Creatinine Glucose POC Glucose 213 H 224 H 187 H Lactic Acid Calcium Phosphorus Magnesium Total Creatine Kinase Troponin T Total Protein Albumin Cholesterol LDL Cholesterol Direct HDL Cholesterol Urine WBC (Auto) Crossmatch 10/11/18 10/11/18 10/11/18 17:53 17:58 18:12 WBC RBC Hgb Hct MCHC RDW Seg Neuts % (Manual) Lymphocytes % (Manual) Seg Neutrophils # Man Lymphocytes # (Manual) PT INR POC ABG pCO2 28.2 L POC ABG pO2 60 L VBG pH Sodium Potassium Chloride Carbon Dioxide BUN Creatinine Glucose POC Glucose 189 H Lactic Acid Calcium Phosphorus Magnesium Total Creatine Kinase 933 H Troponin T Total Protein Albumin Cholesterol LDL Cholesterol Direct HDL Cholesterol Urine WBC (Auto) Crossmatch 10/11/18 10/11/18 10/11/18 18:58 20:16 21:10 WBC RBC Hgb Hct MCHC RDW Seg Neuts % (Manual) Lymphocytes % (Manual) Seg Neutrophils # Man Lymphocytes # (Manual) PT INR POC ABG pCO2 POC ABG pO2 VBG pH Sodium Potassium Chloride Carbon Dioxide BUN Creatinine Glucose POC Glucose 192 H 179 H 160 H Lactic Acid Calcium Phosphorus Magnesium Total Creatine Kinase Troponin T Total Protein Albumin Cholesterol LDL Cholesterol Direct HDL Cholesterol Urine WBC (Auto) Crossmatch 10/11/18 10/11/18 10/11/18 22:14 22:42 23:09 WBC RBC Hgb Hct MCHC RDW Seg Neuts % (Manual) Lymphocytes % (Manual) Seg Neutrophils # Man Lymphocytes # (Manual) PT INR POC ABG pCO2 POC ABG pO2 VBG pH Sodium 136 L Potassium 2.9 L* Chloride Carbon Dioxide 17 L BUN 61 H Creatinine 4.0 H Glucose 122 H POC Glucose 145 H 129 H Lactic Acid Calcium 6.6 L Phosphorus Magnesium Total Creatine Kinase Troponin T Total Protein Albumin Cholesterol LDL Cholesterol Direct HDL Cholesterol Urine WBC (Auto) Crossmatch 10/11/18 10/11/18 10/11/18 Unknown Unknown Unknown WBC RBC Hgb Hct MCHC RDW Seg Neuts % (Manual) Lymphocytes % (Manual) Seg Neutrophils # Man Lymphocytes # (Manual) PT INR POC ABG pCO2 POC ABG pO2 VBG pH Sodium 133 L Potassium 3.0 L Chloride 93.7 L Carbon Dioxide 9 L* BUN 67 H Creatinine 5.9 H Glucose 406 H POC Glucose Lactic Acid 8.50 H* Calcium 7.6 L Phosphorus Magnesium Total Creatine Kinase Troponin T Total Protein Albumin Cholesterol LDL Cholesterol Direct HDL Cholesterol Urine WBC (Auto) > 182.0 H Crossmatch 10/12/18 10/12/18 10/12/18 00:18 01:42 02:03 WBC RBC Hgb Hct MCHC RDW Seg Neuts % (Manual) Lymphocytes % (Manual) Seg Neutrophils # Man Lymphocytes # (Manual) PT INR POC ABG pCO2 POC ABG pO2 VBG pH Sodium Potassium Chloride Carbon Dioxide BUN Creatinine Glucose POC Glucose 113 H 51 L 116 H Lactic Acid Calcium Phosphorus Magnesium Total Creatine Kinase Troponin T Total Protein Albumin Cholesterol LDL Cholesterol Direct HDL Cholesterol Urine WBC (Auto) Crossmatch 10/12/18 10/12/1819 03:09 04:20 04:20 WBC 26.8 H RBC 2.22 L Hgb 6.7 L Hct 19.4 L* MCHC 35 H RDW 15.8 H Seg Neuts % (Manual) Lymphocytes % (Manual) Seg Neutrophils # Man Lymphocytes # (Manual) PT INR POC ABG pCO2 POC ABG pO2 VBG pH Sodium Potassium 2.6 L* Chloride Carbon Dioxide 20 L BUN 56 H Creatinine 4.0 H Glucose 134 H POC Glucose 129 H Lactic Acid Calcium 6.4 L Phosphorus Magnesium 1.30 L Total Creatine Kinase Troponin T Total Protein 5.8 L Albumin 1.8 L Cholesterol LDL Cholesterol Direct HDL Cholesterol Urine WBC (Auto) Crossmatch 10/12/18 10/12/18 10/12/18 04:22 05:25 06:25 WBC RBC Hgb Hct MCHC RDW Seg Neuts % (Manual) Lymphocytes % (Manual) Seg Neutrophils # Man Lymphocytes # (Manual) PT INR POC ABG pCO2 POC ABG pO2 VBG pH Sodium Potassium 2.7 L* Chloride Carbon Dioxide 19 L BUN 51 H Creatinine 3.6 H Glucose 113 H POC Glucose 186 H 131 H Lactic Acid Calcium 6.4 L Phosphorus Magnesium Total Creatine Kinase Troponin T Total Protein Albumin Cholesterol LDL Cholesterol Direct HDL Cholesterol Urine WBC (Auto) Crossmatch 10/12/18 07:34 WBC RBC Hgb Hct MCHC RDW Seg Neuts % (Manual) Lymphocytes % (Manual) Seg Neutrophils # Man Lymphocytes # (Manual) PT INR POC ABG pCO2 POC ABG pO2 VBG pH Sodium Potassium Chloride Carbon Dioxide BUN Creatinine Glucose POC Glucose 120 H Lactic Acid Calcium Phosphorus Magnesium Total Creatine Kinase Troponin T Total Protein Albumin Cholesterol LDL Cholesterol Direct HDL Cholesterol Urine WBC (Auto) Crossmatch Chest x-ray: image reviewed (clear; no acute process) Allied health notes reviewed: nursing
[2018-10-12] MEDS ORDERED: LANTUS SUB-Q SCH ×2 (12:00→22:00)
--- NOTE | 2018-10-12 12:04 | Gastroenterology Consultation ---
<AMILCAR SMITH - Last Filed: 10/12/18 14:16> History of Present Illness - Reason for Consult Consult date: 10/12/18 drop in H/H (GI bleed?) Requesting physician: ANNE BOLAND - History of Present Illness Patient is a 58 y/o male alf resident with PMH of paroxysmal Afib, HTN, DM, sacral wound, recent anal abscess, s/p colostomy, and chronic indwelling suarez who was sent to ED for evaluation of fever, low BP, and AMS. Upon admiss ion, he was found to have urosepsis, acute renal failure, DKA, and elevated troponin. He had a drop in H/H this am to which GI has been consulted (GI bleed?). Upon exam, patient remains confused and unable to provide history. Colostomy with dark black/greenish stool. No hematemesis. No evidence of abd pain or N/V. Previous GI history unknown. Past History Past Medical History: other (as per HPI) Past Surgical History: Other (colostomy) Social history: other (Resides at [facility]) Family history: no significant family history Medications and Allergies Allergies Allergy/AdvReac Type Severity Reaction Status Date / Time No Known Allergies Allergy Unverified 10/11/18 05:00 Home Medications Medication Instructions Recorded Confirmed Last Taken Type Acetaminophen [Acetaminophen ER] 650 mg PO Q6H PRN 10/11/18 10/11/18 Unknown History Allopurinol 300 mg PO QDAY 10/11/18 10/11/18 Unknown History Amlodipine Besylate [Norvasc] 5 mg PO DAILY 10/11/18 10/11/18 Unknown History Atorvastatin [Lipitor Tab] 80 mg PO QHS 10/11/18 10/11/18 Unknown History Calcium Carbonate [Calcium Antacid] 200 mg PO TID 10/11/18 10/11/18 Unknown History Collagenase Clostridium Hist. 1 applic TP BID 10/11/18 10/11/18 Unknown History [Santyl] Collagenase Clostridium Hist. 1 applic TP QPM 10/11/18 10/11/18 Unknown History [Santyl] HYDROcodone/APAP 7.5-325 [[place] 1 each PO Q4HR PRN 10/11/18 10/11/18 Unknown History 7.5/325] Metformin HCl [Glucophage] 500 mg PO BID 10/11/18 10/11/18 Unknown History Mirtazapine [Remeron] 15 mg PO HS 10/11/18 10/11/18 Unknown History Sulfamethoxazole/Trimethoprim 1 each PO BID 10/11/18 10/11/18 Unknown History [Bactrim DS TAB] Active Meds: Active Medications Acetaminophen (Tylenol) 650 mg PO Q4H PRN PRN Reason: Pain, Mild (1-3) Albuterol (Proventil) 2.5 mg IH Q3HRT PRN PRN Reason: Shortness Of Breath Albuterol/Ipratropium (Duoneb *Not For Prn Use*) 1 ampul IH Q6HRT [facility] Last Admin: 10/12/18 09:13 Dose: 1 ampul Documented by: Dextrose (D50w (25gm) Syringe) 0 ml IV ONCE PRN PRN Reason: Hypoglycemia Last Admin: 10/12/18 01:48 Dose: 20 ml Documented by: Norepinephrine (Levophed Drip 4 Mg/Ns 250 Ml) 4 mg in 250 mls @ 7.5 mls/hr IV TITR [facility]; Protocol Last Admin: 10/12/18 07:10 Dose: 10 mcg/min, 37.5 mls/hr Documented by: Cefepime HCl (Maxipime/Ns 2 Gm/100 Ml) 2 gm in 100 mls @ 200 mls/hr IV Q24H [facility]; Protocol Last Admin: 10/11/18 17:33 Dose: 200 mls/hr Documented by: Metronidazole (Flagyl 500 Mg/100 Ml) 500 mg in 100 mls @ 100 mls/hr IV Q8HR [facility]; Protocol Last Admin: 10/12/18 07:09 Dose: 100 mls/hr Documented by: Potassium Chloride/Dextrose/Sod Cl (D5w/0.45% Nacl/Kcl 20 Meq) 20 meq in 1,000 mls @ 125 mls/hr IV DIRECT [facility] Last Admin: 10/12/18 11:02 Dose: 125 mls/hr Documented by: Vasopressin 20 unit/ Sodium (Chloride) 101 mls @ 9.09 mls/hr IV TITR [facility] Last Admin: 10/12/18 01:55 Dose: 0.03 units/min, 9.09 mls/hr Documented by: Diltiazem HCl (Cardizem/D5w 100mg/100ml) 100 mg in 100 mls @ 5 mls/hr IV TITR [facility]; Protocol Last Titration: 10/12/18 11:53 Dose: 10 mg/hr, 10 mls/hr Documented by: Magnesium Sulfate (Magnesium Sulfate 4gm/100ml) 4 gm in 100 mls @ 25 mls/hr IV ONCE ONE Stop: 10/12/18 12:59 Last Admin: 10/12/18 09:23 Dose: 25 mls/hr Documented by: Pantoprazole Sodium 80 mg/ (Sodium Chloride) 100 mls @ 10 mls/hr IV DIRECT [facility] Insulin Glargine (Lantus) 5 units SUB-Q DAILY [facility] Insulin Human Lispro (Humalog) 0 unit SUB-Q Q6HR [facility]; Protocol Last Admin: 10/12/18 09:46 Dose: Not Given Documented by: Ondansetron HCl (Zofran) 4 mg IV Q8H PRN PRN Reason: Nausea And Vomiting Sodium Chloride (Sodium Chloride Flush Syringe 10 Ml) 10 ml IV BID [facility] Last Admin: 10/12/18 09:47 Dose: 10 ml Documented by: Sodium Chloride (Sodium Chloride Flush Syringe 10 Ml) 10 ml IV PRN PRN PRN Reason: LINE FLUSH medications reviewed/updated as required Review of Systems - Review of Systems ROS unobtainable: due to mental status Exam - Constitutional Vital Signs: Temp Pulse Resp BP Pulse Ox 98.2 F 119 H 18 103/66 96 10/12/18 10:53 10/12/18 11:10 10/12/18 11:10 10/12/18 11:10 10/12/18 11:10 General appearance: other (confused) - Respiratory Respiratory effort: labored (slightly) Respiratory: bilateral: diminished - Cardiovascular Rhythm: other (irregular) - Gastrointestinal General gastrointestinal: Present: soft, non-distended, normal bowel sounds, other (+colostomy) - Labs CBC & Chem 7: 10/12/18 12:55 10/12/18 12:55 Lab Results: Laboratory Results - last 24 hr 10/11/18 10/11/18 10/11/18 09:05 12:17 12:18 WBC RBC Hgb Hct MCV MCH MCHC RDW Plt Count POC ABG pH POC ABG pCO2 POC ABG pO2 POC ABG HCO3 POC ABG Total CO2 POC ABG O2 Sat POC ABG Base Excess FiO2 Sodium 135 L Potassium 2.8 L* Chloride 97.9 L Carbon Dioxide 14 L Anion Gap 26 BUN 67 H Creatinine 6.0 H Estimated GFR 12 BUN/Creatinine Ratio 11 Glucose 246 H POC Glucose 261 H Lactic Acid Calcium 7.5 L Magnesium Total Bilirubin AST ALT Alkaline Phosphatase Total Creatine Kinase 1110 H CK-MB (CK-2) 3.5 CK-MB (CK-2) Rel Index 0.3 Total Protein Albumin Albumin/Globulin Ratio Blood Type A POSITIVE Antibody Screen Negative Crossmatch See Detail 10/11/18 10/11/18 10/11/18 13:05 14:13 14:34 WBC RBC Hgb Hct MCV MCH MCHC RDW Plt Count POC ABG pH POC ABG pCO2 POC ABG pO2 POC ABG HCO3 POC ABG Total CO2 POC ABG O2 Sat POC ABG Base Excess FiO2 Sodium 135 L Potassium 2.7 L* Chloride 99.9 Carbon Dioxide 18 L Anion Gap 20 BUN 68 H Creatinine 5.0 H Estimated GFR 14 BUN/Creatinine Ratio 14 Glucose 191 H POC Glucose 251 H 233 H Lactic Acid Calcium 7.1 L Magnesium Total Bilirubin AST ALT Alkaline Phosphatase Total Creatine Kinase CK-MB (CK-2) CK-MB (CK-2) Rel Index Total Protein Albumin Albumin/Globulin Ratio Blood Type Antibody Screen Crossmatch 10/11/18 10/11/18 10/11/18 15:08 16:00 17:20 WBC RBC Hgb Hct MCV MCH MCHC RDW Plt Count POC ABG pH POC ABG pCO2 POC ABG pO2 POC ABG HCO3 POC ABG Total CO2 POC ABG O2 Sat POC ABG Base Excess FiO2 Sodium Potassium Chloride Carbon Dioxide Anion Gap BUN Creatinine Estimated GFR BUN/Creatinine Ratio Glucose POC Glucose 213 H 224 H 187 H Lactic Acid Calcium Magnesium Total Bilirubin AST ALT Alkaline Phosphatase Total Creatine Kinase CK-MB (CK-2) CK-MB (CK-2) Rel Index Total Protein Albumin Albumin/Globulin Ratio Blood Type Antibody Screen Crossmatch 10/11/18 10/11/18 10/11/18 17:53 17:58 18:12 WBC RBC Hgb Hct MCV MCH MCHC RDW Plt Count POC ABG pH 7.380 POC ABG pCO2 28.2 L POC ABG pO2 60 L POC ABG HCO3 16.7 POC ABG Total CO2 18 POC ABG O2 Sat 91 POC ABG Base Excess -8 FiO2 2 Sodium Potassium Chloride Carbon Dioxide Anion Gap BUN Creatinine Estimated GFR BUN/Creatinine Ratio Glucose POC Glucose 189 H Lactic Acid Calcium Magnesium Total Bilirubin AST ALT Alkaline Phosphatase Total Creatine Kinase 933 H CK-MB (CK-2) 2.8 CK-MB (CK-2) Rel Index 0.3 Total Protein Albumin Albumin/Globulin Ratio Blood Type Antibody Screen Crossmatch 10/11/18 10/11/18 10/11/18 18:58 20:16 21:10 WBC RBC Hgb Hct MCV MCH MCHC RDW Plt Count POC ABG pH POC ABG pCO2 POC ABG pO2 POC ABG HCO3 POC ABG Total CO2 POC ABG O2 Sat POC ABG Base Excess FiO2 Sodium Potassium Chloride Carbon Dioxide Anion Gap BUN Creatinine Estimated GFR BUN/Creatinine Ratio Glucose POC Glucose 192 H 179 H 160 H Lactic Acid Calcium Magnesium Total Bilirubin AST ALT Alkaline Phosphatase Total Creatine Kinase CK-MB (CK-2) CK-MB (CK-2) Rel Index Total Protein Albumin Albumin/Globulin Ratio Blood Type Antibody Screen Crossmatch 10/11/18 10/11/18 10/11/18 22:14 22:42 23:09 WBC RBC Hgb Hct MCV MCH MCHC RDW Plt Count POC ABG pH POC ABG pCO2 POC ABG pO2 POC ABG HCO3 POC ABG Total CO2 POC ABG O2 Sat POC ABG Base Excess FiO2 Sodium 136 L Potassium 2.9 L* Chloride 102.0 Carbon Dioxide 17 L Anion Gap 20 BUN 61 H Creatinine 4.0 H Estimated GFR 19 BUN/Creatinine Ratio 15 Glucose 122 H POC Glucose 145 H 129 H Lactic Acid Calcium 6.6 L Magnesium Total Bilirubin AST ALT Alkaline Phosphatase Total Creatine Kinase CK-MB (CK-2) CK-MB (CK-2) Rel Index Total Protein Albumin Albumin/Globulin Ratio Blood Type Antibody Screen Crossmatch 10/12/18 10/12/18 10/12/18 00:18 01:42 02:03 WBC RBC Hgb Hct MCV MCH MCHC RDW Plt Count POC ABG pH POC ABG pCO2 POC ABG pO2 POC ABG HCO3 POC ABG Total CO2 POC ABG O2 Sat POC ABG Base Excess FiO2 Sodium Potassium Chloride Carbon Dioxide Anion Gap BUN Creatinine Estimated GFR BUN/Creatinine Ratio Glucose POC Glucose 113 H 51 L 116 H Lactic Acid Calcium Magnesium Total Bilirubin AST ALT Alkaline Phosphatase Total Creatine Kinase CK-MB (CK-2) CK-MB (CK-2) Rel Index Total Protein Albumin Albumin/Globulin Ratio Blood Type Antibody Screen Crossmatch 10/12/18 10/12/18 10/12/18 03:09 04:20 04:20 WBC 26.8 H RBC 2.22 L Hgb 6.7 L Hct 19.4 L* MCV 87 MCH 30 MCHC 35 H RDW 15.8 H Plt Count 223 POC ABG pH POC ABG pCO2 POC ABG pO2 POC ABG HCO3 POC ABG Total CO2 POC ABG O2 Sat POC ABG Base Excess FiO2 Sodium 139 Potassium 2.6 L* Chloride 102.8 Carbon Dioxide 20 L Anion Gap 19 BUN 56 H Creatinine 4.0 H Estimated GFR 19 BUN/Creatinine Ratio 14 Glucose 134 H POC Glucose 129 H Lactic Acid Calcium 6.4 L Magnesium 1.30 L Total Bilirubin 0.30 AST 25 ALT 10 Alkaline Phosphatase 109 Total Creatine Kinase CK-MB (CK-2) CK-MB (CK-2) Rel Index Total Protein 5.8 L Albumin 1.8 L Albumin/Globulin Ratio 0.5 Blood Type Antibody Screen Crossmatch 10/12/18 10/12/18 10/12/18 04:20 04:22 05:25 WBC RBC Hgb Hct MCV MCH MCHC RDW Plt Count POC ABG pH POC ABG pCO2 POC ABG pO2 POC ABG HCO3 POC ABG Total CO2 POC ABG O2 Sat POC ABG Base Excess FiO2 Sodium Potassium Chloride Carbon Dioxide Anion Gap BUN Creatinine Estimated GFR BUN/Creatinine Ratio Glucose POC Glucose 186 H 131 H Lactic Acid 1.50 Calcium Magnesium Total Bilirubin AST ALT Alkaline Phosphatase Total Creatine Kinase CK-MB (CK-2) CK-MB (CK-2) Rel Index Total Protein Albumin Albumin/Globulin Ratio Blood Type Antibody Screen Crossmatch 10/12/18 10/12/18 06:25 07:34 WBC RBC Hgb Hct MCV MCH MCHC RDW Plt Count POC ABG pH POC ABG pCO2 POC ABG pO2 POC ABG HCO3 POC ABG Total CO2 POC ABG O2 Sat POC ABG Base Excess FiO2 Sodium 138 Potassium 2.7 L* Chloride 103.8 Carbon Dioxide 19 L Anion Gap 18 BUN 51 H Creatinine 3.6 H Estimated GFR 21 BUN/Creatinine Ratio 14 Glucose 113 H POC Glucose 120 H Lactic Acid Calcium 6.4 L Magnesium Total Bilirubin AST ALT Alkaline Phosphatase Total Creatine Kinase CK-MB (CK-2) CK-MB (CK-2) Rel Index Total Protein Albumin Albumin/Globulin Ratio Blood Type Antibody Screen Crossmatch Assessment and Plan 1.anemia/GI bleed? -H/H 6.7/19.4-trending down-transfusion of PRBCs pending -continue to monitor H/H and transfuse as needed -colostomy with black/greenish stool -etiology unclear-likely upper source -stool for occult -start on Protonix drip -hold blood thinning medications -EGD tomorrow if medically stable -Keep NPO -continue supportive care -electrolyte management per primary team -will follow 2.Severe sepsis/hypotension 3.Paroxysmal atrial fibrillation with RVR 4.Urinary tract infection 5.Sacral wound 6.Elevated troponin, likely due to hypotension/acute kidney injury 7.Acute renal failure 8.H/o hypertension 9.Diabetes 10.Hypokalemia / hypomag <GENEVIEVE MUIR - Last Filed: 10/12/18 14:26> Medications and Allergies Active Meds: Active Medications Acetaminophen (Tylenol) 650 mg PO Q4H PRN PRN Reason: Pain, Mild (1-3) Albuterol (Proventil) 2.5 mg IH Q3HRT PRN PRN Reason: Shortness Of Breath Albuterol/Ipratropium (Duoneb *Not For Prn Use*) 1 ampul IH Q6HRT [facility] Last Admin: 10/12/18 14:14 Dose: 1 ampul Documented by: Dextrose (D50w (25gm) Syringe) 0 ml IV ONCE PRN PRN Reason: Hypoglycemia Last Admin: 10/12/18 01:48 Dose: 20 ml Documented by: Norepinephrine (Levophed Drip 4 Mg/Ns 250 Ml) 4 mg in 250 mls @ 7.5 mls/hr IV TITR [facility]; Protocol Last Admin: 10/12/18 07:10 Dose: 10 mcg/min, 37.5 mls/hr Documented by: Cefepime HCl (Maxipime/Ns 2 Gm/100 Ml) 2 gm in 100 mls @ 200 mls/hr IV Q24H [facility]; Protocol Last Admin: 10/11/18 17:33 Dose: 200 mls/hr Documented by: Metronidazole (Flagyl 500 Mg/100 Ml) 500 mg in 100 mls @ 100 mls/hr IV Q8HR [facility]; Protocol Last Admin: 10/12/18 13:01 Dose: 100 mls/hr Documented by: Potassium Chloride/Dextrose/Sod Cl (D5w/0.45% Nacl/Kcl 20 Meq) 20 meq in 1,000 mls @ 125 mls/hr IV DIRECT [facility] Last Admin: 10/12/18 11:02 Dose: 125 mls/hr Documented by: Vasopressin 20 unit/ Sodium (Chloride) 101 mls @ 9.09 mls/hr IV TITR [facility] Last Admin: 10/12/18 01:55 Dose: 0.03 units/min, 9.09 mls/hr Documented by: Diltiazem HCl (Cardizem/D5w 100mg/100ml) 100 mg in 100 mls @ 5 mls/hr IV TITR [facility]; Protocol Last Titration: 10/12/18 11:53 Dose: 10 mg/hr, 10 mls/hr Documented by: Pantoprazole Sodium 80 mg/ (Sodium Chloride) 100 mls @ 10 mls/hr IV DIRECT [facility] Last Admin: 10/12/18 12:51 Dose: 8 mg/hr, 10 mls/hr Documented by: Insulin Glargine (Lantus) 5 units SUB-Q DAILY [facility] Last Admin: 10/12/18 12:50 Dose: 5 units Documented by: Insulin Human Lispro (Humalog) 0 unit SUB-Q Q6HR [facility]; Protocol Last Admin: 10/12/18 12:49 Dose: 3 unit Documented by: Ondansetron HCl (Zofran) 4 mg IV Q8H PRN PRN Reason: Nausea And Vomiting Sodium Chloride (Sodium Chloride Flush Syringe 10 Ml) 10 ml IV BID [facility] Last Admin: 10/12/18 09:47 Dose: 10 ml Documented by: Sodium Chloride (Sodium Chloride Flush Syringe 10 Ml) 10 ml IV PRN PRN PRN Reason: LINE FLUSH Exam - Constitutional Vital Signs: Temp Pulse Resp BP Pulse Ox 98.2 F 111 H 21 103/66 96 10/12/18 10:53 10/12/18 14:15 10/12/18 14:15 10/12/18 11:10 10/12/18 11:10 - Labs CBC & Chem 7: 10/12/18 12:55 10/12/18 12:55 Lab Results: Laboratory Results - last 24 hr 10/11/18 10/11/18 10/11/18 09:05 12:17 13:05 WBC RBC Hgb Hct MCV MCH MCHC RDW Plt Count POC ABG pH POC ABG pCO2 POC ABG pO2 POC ABG HCO3 POC ABG Total CO2 POC ABG O2 Sat POC ABG Base Excess FiO2 Sodium Potassium Chloride Carbon Dioxide Anion Gap BUN Creatinine Estimated GFR BUN/Creatinine Ratio Glucose POC Glucose 261 H 251 H Lactic Acid Calcium Magnesium Total Bilirubin AST ALT Alkaline Phosphatase Total Creatine Kinase CK-MB (CK-2) CK-MB (CK-2) Rel Index Total Protein Albumin Albumin/Globulin Ratio Blood Type A POSITIVE Antibody Screen Negative Crossmatch See Detail 10/11/18 10/11/18 10/11/18 14:13 14:34 15:08 WBC RBC Hgb Hct MCV MCH MCHC RDW Plt Count POC ABG pH POC ABG pCO2 POC ABG pO2 POC ABG HCO3 POC ABG Total CO2 POC ABG O2 Sat POC ABG Base Excess FiO2 Sodium 135 L Potassium 2.7 L* Chloride 99.9 Carbon Dioxide 18 L Anion Gap 20 BUN 68 H Creatinine 5.0 H Estimated GFR 14 BUN/Creatinine Ratio 14 Glucose 191 H POC Glucose 233 H 213 H Lactic Acid Calcium 7.1 L Magnesium Total Bilirubin AST ALT Alkaline Phosphatase Total Creatine Kinase CK-MB (CK-2) CK-MB (CK-2) Rel Index Total Protein Albumin Albumin/Globulin Ratio Blood Type Antibody Screen Crossmatch 10/11/18 10/11/18 10/11/18 16:00 17:20 17:53 WBC RBC Hgb Hct MCV MCH MCHC RDW Plt Count POC ABG pH 7.380 POC ABG pCO2 28.2 L POC ABG pO2 60 L POC ABG HCO3 16.7 POC ABG Total CO2 18 POC ABG O2 Sat 91 POC ABG Base Excess -8 FiO2 2 Sodium Potassium Chloride Carbon Dioxide Anion Gap BUN Creatinine Estimated GFR BUN/Creatinine Ratio Glucose POC Glucose 224 H 187 H Lactic Acid Calcium Magnesium Total Bilirubin AST ALT Alkaline Phosphatase Total Creatine Kinase CK-MB (CK-2) CK-MB (CK-2) Rel Index Total Protein Albumin Albumin/Globulin Ratio Blood Type Antibody Screen Crossmatch 10/11/18 10/11/18 10/11/18 17:58 18:12 18:58 WBC RBC Hgb Hct MCV MCH MCHC RDW Plt Count POC ABG pH POC ABG pCO2 POC ABG pO2 POC ABG HCO3 POC ABG Total CO2 POC ABG O2 Sat POC ABG Base Excess FiO2 Sodium Potassium Chloride Carbon Dioxide Anion Gap BUN Creatinine Estimated GFR BUN/Creatinine Ratio Glucose POC Glucose 189 H 192 H Lactic Acid Calcium Magnesium Total Bilirubin AST ALT Alkaline Phosphatase Total Creatine Kinase 933 H CK-MB (CK-2) 2.8 CK-MB (CK-2) Rel Index 0.3 Total Protein Albumin Albumin/Globulin Ratio Blood Type Antibody Screen Crossmatch 10/11/18 10/11/18 10/11/18 20:16 21:10 22:14 WBC RBC Hgb Hct MCV MCH MCHC RDW Plt Count POC ABG pH POC ABG pCO2 POC ABG pO2 POC ABG HCO3 POC ABG Total CO2 POC ABG O2 Sat POC ABG Base Excess FiO2 Sodium Potassium Chloride Carbon Dioxide Anion Gap BUN Creatinine Estimated GFR BUN/Creatinine Ratio Glucose POC Glucose 179 H 160 H 145 H Lactic Acid Calcium Magnesium Total Bilirubin AST ALT Alkaline Phosphatase Total Creatine Kinase CK-MB (CK-2) CK-MB (CK-2) Rel Index Total Protein Albumin Albumin/Globulin Ratio Blood Type Antibody Screen Crossmatch 10/11/18 10/11/18 10/12/18 22:42 23:09 00:18 WBC RBC Hgb Hct MCV MCH MCHC RDW Plt Count POC ABG pH POC ABG pCO2 POC ABG pO2 POC ABG HCO3 POC ABG Total CO2 POC ABG O2 Sat POC ABG Base Excess FiO2 Sodium 136 L Potassium 2.9 L* Chloride 102.0 Carbon Dioxide 17 L Anion Gap 20 BUN 61 H Creatinine 4.0 H Estimated GFR 19 BUN/Creatinine Ratio 15 Glucose 122 H POC Glucose 129 H 113 H Lactic Acid Calcium 6.6 L Magnesium Total Bilirubin AST ALT Alkaline Phosphatase Total Creatine Kinase CK-MB (CK-2) CK-MB (CK-2) Rel Index Total Protein Albumin Albumin/Globulin Ratio Blood Type Antibody Screen Crossmatch 10/12/18 10/12/18 10/12/18 01:42 02:03 03:09 WBC RBC Hgb Hct MCV MCH MCHC RDW Plt Count POC ABG pH POC ABG pCO2 POC ABG pO2 POC ABG HCO3 POC ABG Total CO2 POC ABG O2 Sat POC ABG Base Excess FiO2 Sodium Potassium Chloride Carbon Dioxide Anion Gap BUN Creatinine Estimated GFR BUN/Creatinine Ratio Glucose POC Glucose 51 L 116 H 129 H Lactic Acid Calcium Magnesium Total Bilirubin AST ALT Alkaline Phosphatase Total Creatine Kinase CK-MB (CK-2) CK-MB (CK-2) Rel Index Total Protein Albumin Albumin/Globulin Ratio Blood Type Antibody Screen Crossmatch 10/12/18 10/12/18 10/12/18 04:20 04:20 04:20 WBC 26.8 H RBC 2.22 L Hgb 6.7 L Hct 19.4 L* MCV 87 MCH 30 MCHC 35 H RDW 15.8 H Plt Count 223 POC ABG pH POC ABG pCO2 POC ABG pO2 POC ABG HCO3 POC ABG Total CO2 POC ABG O2 Sat POC ABG Base Excess FiO2 Sodium 139 Potassium 2.6 L* Chloride 102.8 Carbon Dioxide 20 L Anion Gap 19 BUN 56 H Creatinine 4.0 H Estimated GFR 19 BUN/Creatinine Ratio 14 Glucose 134 H POC Glucose Lactic Acid 1.50 Calcium 6.4 L Magnesium 1.30 L Total Bilirubin 0.30 AST 25 ALT 10 Alkaline Phosphatase 109 Total Creatine Kinase CK-MB (CK-2) CK-MB (CK-2) Rel Index Total Protein 5.8 L Albumin 1.8 L Albumin/Globulin Ratio 0.5 Blood Type Antibody Screen Crossmatch 10/12/18 10/12/18 10/12/18 04:22 05:25 06:25 WBC RBC Hgb Hct MCV MCH MCHC RDW Plt Count POC ABG pH POC ABG pCO2 POC ABG pO2 POC ABG HCO3 POC ABG Total CO2 POC ABG O2 Sat POC ABG Base Excess FiO2 Sodium 138 Potassium 2.7 L* Chloride 103.8 Carbon Dioxide 19 L Anion Gap 18 BUN 51 H Creatinine 3.6 H Estimated GFR 21 BUN/Creatinine Ratio 14 Glucose 113 H POC Glucose 186 H 131 H Lactic Acid Calcium 6.4 L Magnesium Total Bilirubin AST ALT Alkaline Phosphatase Total Creatine Kinase CK-MB (CK-2) CK-MB (CK-2) Rel Index Total Protein Albumin Albumin/Globulin Ratio Blood Type Antibody Screen Crossmatch 10/12/18 10/12/18 10/12/18 07:34 08:28 09:29 WBC RBC Hgb Hct MCV MCH MCHC RDW Plt Count POC ABG pH POC ABG pCO2 POC ABG pO2 POC ABG HCO3 POC ABG Total CO2 POC ABG O2 Sat POC ABG Base Excess FiO2 Sodium Potassium Chloride Carbon Dioxide Anion Gap BUN Creatinine Estimated GFR BUN/Creatinine Ratio Glucose POC Glucose 120 H 110 H 140 H Lactic Acid Calcium Magnesium Total Bilirubin AST ALT Alkaline Phosphatase Total Creatine Kinase CK-MB (CK-2) CK-MB (CK-2) Rel Index Total Protein Albumin Albumin/Globulin Ratio Blood Type Antibody Screen Crossmatch 10/12/18 10/12/18 10/12/18 11:55 12:55 12:55 WBC RBC Hgb 7.1 L Hct 20.6 L MCV MCH MCHC RDW Plt Count POC ABG pH POC ABG pCO2 POC ABG pO2 POC ABG HCO3 POC ABG Total CO2 POC ABG O2 Sat POC ABG Base Excess FiO2 Sodium 136 L Potassium 2.9 L* Chloride 101.3 Carbon Dioxide 16 L Anion Gap 22 BUN 48 H Creatinine 3.1 H Estimated GFR 25 BUN/Creatinine Ratio 15 Glucose 258 H POC Glucose 219 H Lactic Acid Calcium 6.3 L Magnesium Total Bilirubin AST ALT Alkaline Phosphatase Total Creatine Kinase CK-MB (CK-2) CK-MB (CK-2) Rel Index Total Protein Albumin Albumin/Globulin Ratio Blood Type Antibody Screen Crossmatch 10/12/18 12:55 WBC RBC Hgb Hct MCV MCH MCHC RDW Plt Count POC ABG pH POC ABG pCO2 POC ABG pO2 POC ABG HCO3 POC ABG Total CO2 POC ABG O2 Sat POC ABG Base Excess FiO2 Sodium Potassium Chloride Carbon Dioxide Anion Gap BUN Creatinine Estimated GFR BUN/Creatinine Ratio Glucose POC Glucose Lactic Acid Calcium Magnesium 4.80 H Total Bilirubin AST ALT Alkaline Phosphatase Total Creatine Kinase CK-MB (CK-2) CK-MB (CK-2) Rel Index Total Protein Albumin Albumin/Globulin Ratio Blood Type Antibody Screen Crossmatch Assessment and Plan Patient seen and examined. Agree with note as above. Conservative management from gi standpoint unless overtly bleeds. transfuse as needed and cont IV PPI. Possible EGD tomorrow or sooner if needed based on progress.
--- NOTE | 2018-10-12 12:19 | Progress Note ---
Assessment and Plan Assessment: Severe sepsis/hypotension Paroxysmal atrial fibrillation with RVR Anemia Urinary tract infection Sacral wound Elevated troponin, likely due to hypotension/acute kidney injury Acute renal failure H/o hypertension Diabetes Hypokalemia / hypomag Plan: Echo reviewed - EF 60-65%, mild TR. H/H decreasing. GI consultation in progress. PRBC tx per primary. Optimize HR - pt currently weaned off levophed, pt currently NPO, cont cardizem gtt. No systemic AC at this time in setting of severe anemia. Replete K+ and Mg. The patient has been seen in conjunction with Dr. Lois Marcus who agrees with the assessment and plan of care. Subjective Date of service: 10/12/18 Principal diagnosis: sepsis Interval history: pt resting in bed, lethargic, no current cardiac complaints. in AFib on tele, HR 110s, cardizem gtt infusing. receiving PRBC tx. Objective Last Vital Signs Temp 98.2 F 10/12/18 10:53 Pulse 119 H 10/12/18 11:10 Resp 18 10/12/18 11:10 BP 103/66 10/12/18 11:10 Pulse Ox 96 10/12/18 11:10 - Physical Examination General: Other (lethargic) HEENT: Positive: Normocephaly, Mucus Membranes Moist Neck: Positive: neck supple, trachea midline Cardiac: Positive: irregularly irregular, S1/S2 Lungs: Positive: Decreased Breath Sounds Neuro: Positive: Other (disoriented) Abdomen: Positive: Soft Extremities: Absent: edema - Labs and Meds Cardiac Enzymes 10/11/18 10/11/18 10/12/18 Range/Units 12:18 17:58 04:20 AST 25 (5-40) units/L CK-MB (CK-2) 3.5 2.8 (0.0-4.0) ng/mL CBC 10/12/18 Range/Units 04:20 WBC 26.8 H (4.5-11.0) K/mm3 RBC 2.22 L (3.65-5.03) M/mm3 Hgb 6.7 L (11.8-15.2) gm/dl Hct 19.4 L* (35.5-45.6) % Plt Count 223 (140-440) K/mm3 Comprehensive Metabolic Panel 10/11/18 10/11/18 10/11/18 Range/Units 12:18 14:34 22:42 Sodium 135 L 135 L 136 L (137-145) mmol/L Potassium 2.8 L* 2.7 L* 2.9 L* (3.6-5.0) mmol/L Chloride 97.9 L 99.9 102.0 (98-107) mmol/L Carbon Dioxide 14 L 18 L 17 L (22-30) mmol/L BUN 67 H 68 H 61 H (9-20) mg/dL Creatinine 6.0 H 5.0 H 4.0 H (0.8-1.5) mg/dL Glucose 246 H 191 H 122 H (75-100) mg/dL Calcium 7.5 L 7.1 L 6.6 L (8.4-10.2) mg/dL AST (5-40) units/L ALT (7-56) units/L Alkaline Phosphatase (35-129) units/L Total Protein (6.3-8.2) g/dL Albumin (3.9-5) g/dL 10/12/18 10/12/18 Range/Units 04:20 06:25 Sodium 139 138 (137-145) mmol/L Potassium 2.6 L* 2.7 L* (3.6-5.0) mmol/L Chloride 102.8 103.8 (98-107) mmol/L Carbon Dioxide 20 L 19 L (22-30) mmol/L BUN 56 H 51 H (9-20) mg/dL Creatinine 4.0 H 3.6 H (0.8-1.5) mg/dL Glucose 134 H 113 H (75-100) mg/dL Calcium 6.4 L 6.4 L (8.4-10.2) mg/dL AST 25 (5-40) units/L ALT 10 (7-56) units/L Alkaline Phosphatase 109 (35-129) units/L Total Protein 5.8 L (6.3-8.2) g/dL Albumin 1.8 L (3.9-5) g/dL - Imaging and Cardiology EKG: image reviewed Echo: pending - EKG Sinus rhythms and dysrhythmias: sinus tachycardia
--- NOTE | 2018-10-12 12:42 | Consultation ---
History of Present Illness Consult date: 10/12/18 Reason for consult: other (Sacral pressure ulcer) - History of present illness History of present illness: 58 yo male [place] resident admitted with sepsis. I have been asked to render an opinion as to whether his sacral decubitus is the source of his sepsis. Pressors are being weaned. He says his legs are paralyzed but he can't explain why. Past History Past Medical History: diabetes, hypertension, hyperlipidemia Past Surgical History: Other (colostomy) Social history: other (Resides at [facility]) Family history: no significant family history Medications and Allergies Allergies Allergy/AdvReac Type Severity Reaction Status Date / Time No Known Allergies Allergy Unverified 10/11/18 05:00 Home Medications Medication Instructions Recorded Confirmed Last Taken Type Acetaminophen [Acetaminophen ER] 650 mg PO Q6H PRN 10/11/18 10/11/18 Unknown History Allopurinol 300 mg PO QDAY 10/11/18 10/11/18 Unknown History Amlodipine Besylate [Norvasc] 5 mg PO DAILY 10/11/18 10/11/18 Unknown History Atorvastatin [Lipitor Tab] 80 mg PO QHS 10/11/18 10/11/18 Unknown History Calcium Carbonate [Calcium Antacid] 200 mg PO TID 10/11/18 10/11/18 Unknown History Collagenase Clostridium Hist. 1 applic TP BID 10/11/18 10/11/18 Unknown History [Santyl] Collagenase Clostridium Hist. 1 applic TP QPM 10/11/18 10/11/18 Unknown History [Santyl] HYDROcodone/APAP 7.5-325 [[place] 1 each PO Q4HR PRN 10/11/18 10/11/18 Unknown History 7.5/325] Metformin HCl [Glucophage] 500 mg PO BID 10/11/18 10/11/18 Unknown History Mirtazapine [Remeron] 15 mg PO HS 10/11/18 10/11/18 Unknown History Sulfamethoxazole/Trimethoprim 1 each PO BID 10/11/18 10/11/18 Unknown History [Bactrim DS TAB] Active Meds: Active Medications Acetaminophen (Tylenol) 650 mg PO Q4H PRN PRN Reason: Pain, Mild (1-3) Albuterol (Proventil) 2.5 mg IH Q3HRT PRN PRN Reason: Shortness Of Breath Albuterol/Ipratropium (Duoneb *Not For Prn Use*) 1 ampul IH Q6HRT [place] Last Admin: 10/12/18 09:13 Dose: 1 ampul Documented by: Dextrose (D50w (25gm) Syringe) 0 ml IV ONCE PRN PRN Reason: Hypoglycemia Last Admin: 10/12/18 01:48 Dose: 20 ml Documented by: Norepinephrine (Levophed Drip 4 Mg/Ns 250 Ml) 4 mg in 250 mls @ 7.5 mls/hr IV TITR [facility]; Protocol Last Admin: 10/12/18 07:10 Dose: 10 mcg/min, 37.5 mls/hr Documented by: Cefepime HCl (Maxipime/Ns 2 Gm/100 Ml) 2 gm in 100 mls @ 200 mls/hr IV Q24H S ; Protocol Last Admin: 10/11/18 17:33 Dose: 200 mls/hr Documented by: Metronidazole (Flagyl 500 Mg/100 Ml) 500 mg in 100 mls @ 100 mls/hr IV Q8HR [facility]; Protocol Last Admin: 10/12/18 07:09 Dose: 100 mls/hr Documented by: Potassium Chloride/Dextrose/Sod Cl (D5w/0.45% Nacl/Kcl 20 Meq) 20 meq in 1,000 mls @ 125 mls/hr IV DIRECT [place] Last Admin: 10/12/18 11:02 Dose: 125 mls/hr Documented by: Vasopressin 20 unit/ Sodium (Chloride) 101 mls @ 9.09 mls/hr IV TITR [place] Last Admin: 10/12/18 01:55 Dose: 0.03 units/min, 9.09 mls/hr Documented by: Diltiazem HCl (Cardizem/D5w 100mg/100ml) 100 mg in 100 mls @ 5 mls/hr IV TITR [facility]; Protocol Last Titration: 10/12/18 11:53 Dose: 10 mg/hr, 10 mls/hr Documented by: Magnesium Sulfate (Magnesium Sulfate 4gm/100ml) 4 gm in 100 mls @ 25 mls/hr IV ONCE ONE Stop: 10/12/18 12:59 Last Admin: 10/12/18 09:23 Dose: 25 mls/hr Documented by: Pantoprazole Sodium 80 mg/ (Sodium Chloride) 100 mls @ 10 mls/hr IV DIRECT [place] Insulin Glargine (Lantus) 5 units SUB-Q DAILY [facility] Insulin Human Lispro (Humalog) 0 unit SUB-Q Q6HR [facility]; Protocol Last Admin: 10/12/18 09:46 Dose: Not Given Documented by: Ondansetron HCl (Zofran) 4 mg IV Q8H PRN PRN Reason: Nausea And Vomiting Sodium Chloride (Sodium Chloride Flush Syringe 10 Ml) 10 ml IV BID [facility] Last Admin: 10/12/18 09:47 Dose: 10 ml Documented by: Sodium Chloride (Sodium Chloride Flush Syringe 10 Ml) 10 ml IV PRN PRN PRN Reason: LINE FLUSH Review of Systems All systems: negative (none) Exam Vital Signs Pulse Ox 88 10/11/18 04:02 - General physical appearance Positive: well developed, well nourished, no distress - Eyes Positive: PERRL, normal occular movement - ENT Positive: normal pinna, normal nares, normal mucosa, no hearing loss, no congestion - Neck Positive: no masses, no bruits, trachea midline, no venous distension - Respiratory Positive: normal expansion, normal respiratory effort, clear to auscultation - Cardiovascular Rhythm: regular Heart Sounds: Present: S1 & S2. Absent: rub, click - Extremities Extremities: no ischemia, pulses symmetrical, No edema - Breasts Breasts: deferred - Abdomen Abdomen: Present: soft, bowel sounds normal. Absent: tender, distended Hernia: none - Genitourinary Male Genitourinary: deferred - Integumentary other (There is a large, stage 4 sacral pressure ulcer. There is some necrotic tissue overlying the upper sacrum but no associated drainage or evidence of infection.) - Neurologic Neurologic: CN II-XII intact - Psychiatric Psychiatric: agitated Results - Labs 10/12/18 04:20 10/12/18 06:25 Abnormal lab results 10/11/18 10/11/18 10/11/18 Range/Units 09:05 12:17 12:18 WBC (4.5-11.0) K/mm3 RBC (3.65-5.03) M/mm3 Hgb (11.8-15.2) gm/dl Hct (35.5-45.6) % MCHC (32-34) % RDW (13.2-15.2) % POC ABG pCO2 (35-45) POC ABG pO2 (80-105) Sodium 135 L (137-145) mmol/L Potassium 2.8 L* (3.6-5.0) mmol/L Chloride 97.9 L (98-107) mmol/L Carbon Dioxide 14 L (22-30) mmol/L BUN 67 H (9-20) mg/dL Creatinine 6.0 H (0.8-1.5) mg/dL Glucose 246 H (75-100) mg/dL POC Glucose 261 H (70-105) Calcium 7.5 L (8.4-10.2) mg/dL Magnesium (1.7-2.3) mg/dL Total Creatine Kinase 1110 H (55-170) units/L Total Protein (6.3-8.2) g/dL Albumin (3.9-5) g/dL Crossmatch See Detail 10/11/18 10/11/18 10/11/18 Range/Units 13:05 14:13 14:34 WBC (4.5-11.0) K/mm3 RBC (3.65-5.03) M/mm3 Hgb (11.8-15.2) gm/dl Hct (35.5-45.6) % MCHC (32-34) % RDW (13.2-15.2) % POC ABG pCO2 (35-45) POC ABG pO2 (80-105) Sodium 135 L (137-145) mmol/L Potassium 2.7 L* (3.6-5.0) mmol/L Chloride (98-107) mmol/L Carbon Dioxide 18 L (22-30) mmol/L BUN 68 H (9-20) mg/dL Creatinine 5.0 H (0.8-1.5) mg/dL Glucose 191 H (75-100) mg/dL POC Glucose 251 H 233 H (70-105) Calcium 7.1 L (8.4-10.2) mg/dL Magnesium (1.7-2.3) mg/dL Total Creatine Kinase (55-170) units/L Total Protein (6.3-8.2) g/dL Albumin (3.9-5) g/dL Crossmatch 10/11/18 10/11/18 10/11/18 Range/Units 15:08 16:00 17:20 WBC (4.5-11.0) K/mm3 RBC (3.65-5.03) M/mm3 Hgb (11.8-15.2) gm/dl Hct (35.5-45.6) % MCHC (32-34) % RDW (13.2-15.2) % POC ABG pCO2 (35-45) POC ABG pO2 (80-105) Sodium (137-145) mmol/L Potassium (3.6-5.0) mmol/L Chloride (98-107) mmol/L Carbon Dioxide (22-30) mmol/L BUN (9-20) mg/dL Creatinine (0.8-1.5) mg/dL Glucose (75-100) mg/dL POC Glucose 213 H 224 H 187 H (70-105) Calcium (8.4-10.2) mg/dL Magnesium (1.7-2.3) mg/dL Total Creatine Kinase (55-170) units/L Total Protein (6.3-8.2) g/dL Albumin (3.9-5) g/dL Crossmatch 10/11/18 10/11/18 10/11/18 Range/Units 17:53 17:58 18:12 WBC (4.5-11.0) K/mm3 RBC (3.65-5.03) M/mm3 Hgb (11.8-15.2) gm/dl Hct (35.5-45.6) % MCHC (32-34) % RDW (13.2-15.2) % POC ABG pCO2 28.2 L (35-45) POC ABG pO2 60 L (80-105) Sodium (137-145) mmol/L Potassium (3.6-5.0) mmol/L Chloride (98-107) mmol/L Carbon Dioxide (22-30) mmol/L BUN (9-20) mg/dL Creatinine (0.8-1.5) mg/dL Glucose (75-100) mg/dL POC Glucose 189 H (70-105) Calcium (8.4-10.2) mg/dL Magnesium (1.7-2.3) mg/dL Total Creatine Kinase 933 H (55-170) units/L Total Protein (6.3-8.2) g/dL Albumin (3.9-5) g/dL Crossmatch 10/11/18 10/11/18 10/11/18 Range/Units 18:58 20:16 21:10 WBC (4.5-11.0) K/mm3 RBC (3.65-5.03) M/mm3 Hgb (11.8-15.2) gm/dl Hct (35.5-45.6) % MCHC (32-34) % RDW (13.2-15.2) % POC ABG pCO2 (35-45) POC ABG pO2 (80-105) Sodium (137-145) mmol/L Potassium (3.6-5.0) mmol/L Chloride (98-107) mmol/L Carbon Dioxide (22-30) mmol/L BUN (9-20) mg/dL Creatinine (0.8-1.5) mg/dL Glucose (75-100) mg/dL POC Glucose 192 H 179 H 160 H (70-105) Calcium (8.4-10.2) mg/dL Magnesium (1.7-2.3) mg/dL Total Creatine Kinase (55-170) units/L Total Protein (6.3-8.2) g/dL Albumin (3.9-5) g/dL Crossmatch 10/11/18 10/11/18 10/11/18 Range/Units 22:14 22:42 23:09 WBC (4.5-11.0) K/mm3 RBC (3.65-5.03) M/mm3 Hgb (11.8-15.2) gm/dl Hct (35.5-45.6) % MCHC (32-34) % RDW (13.2-15.2) % POC ABG pCO2 (35-45) POC ABG pO2 (80-105) Sodium 136 L (137-145) mmol/L Potassium 2.9 L* (3.6-5.0) mmol/L Chloride (98-107) mmol/L Carbon Dioxide 17 L (22-30) mmol/L BUN 61 H (9-20) mg/dL Creatinine 4.0 H (0.8-1.5) mg/dL Glucose 122 H (75-100) mg/dL POC Glucose 145 H 129 H (70-105) Calcium 6.6 L (8.4-10.2) mg/dL Magnesium (1.7-2.3) mg/dL Total Creatine Kinase (55-170) units/L Total Protein (6.3-8.2) g/dL Albumin (3.9-5) g/dL Crossmatch 10/12/18 10/12/18 10/12/18 Range/Units 00:18 01:42 02:03 WBC (4.5-11.0) K/mm3 RBC (3.65-5.03) M/mm3 Hgb (11.8-15.2) gm/dl Hct (35.5-45.6) % MCHC (32-34) % RDW (13.2-15.2) % POC ABG pCO2 (35-45) POC ABG pO2 (80-105) Sodium (137-145) mmol/L Potassium (3.6-5.0) mmol/L Chloride (98-107) mmol/L Carbon Dioxide (22-30) mmol/L BUN (9-20) mg/dL Creatinine (0.8-1.5) mg/dL Glucose (75-100) mg/dL POC Glucose 113 H 51 L 116 H (70-105) Calcium (8.4-10.2) mg/dL Magnesium (1.7-2.3) mg/dL Total Creatine Kinase (55-170) units/L Total Protein (6.3-8.2) g/dL Albumin (3.9-5) g/dL Crossmatch 10/12/18 10/12/18 10/12/18 Range/Units 03:09 04:20 04:20 WBC 26.8 H (4.5-11.0) K/mm3 RBC 2.22 L (3.65-5.03) M/mm3 Hgb 6.7 L (11.8-15.2) gm/dl Hct 19.4 L* (35.5-45.6) % MCHC 35 H (32-34) % RDW 15.8 H (13.2-15.2) % POC ABG pCO2 (35-45) POC ABG pO2 (80-105) Sodium (137-145) mmol/L Potassium 2.6 L* (3.6-5.0) mmol/L Chloride (98-107) mmol/L Carbon Dioxide 20 L (22-30) mmol/L BUN 56 H (9-20) mg/dL Creatinine 4.0 H (0.8-1.5) mg/dL Glucose 134 H (75-100) mg/dL POC Glucose 129 H (70-105) Calcium 6.4 L (8.4-10.2) mg/dL Magnesium 1.30 L (1.7-2.3) mg/dL Total Creatine Kinase (55-170) units/L Total Protein 5.8 L (6.3-8.2) g/dL Albumin 1.8 L (3.9-5) g/dL Crossmatch 10/12/18 10/12/18 10/12/18 Range/Units 04:22 05:25 06:25 WBC (4.5-11.0) K/mm3 RBC (3.65-5.03) M/mm3 Hgb (11.8-15.2) gm/dl Hct (35.5-45.6) % MCHC (32-34) % RDW (13.2-15.2) % POC ABG pCO2 (35-45) POC ABG pO2 (80-105) Sodium (137-145) mmol/L Potassium 2.7 L* (3.6-5.0) mmol/L Chloride (98-107) mmol/L Carbon Dioxide 19 L (22-30) mmol/L BUN 51 H (9-20) mg/dL Creatinine 3.6 H (0.8-1.5) mg/dL Glucose 113 H (75-100) mg/dL POC Glucose 186 H 131 H (70-105) Calcium 6.4 L (8.4-10.2) mg/dL Magnesium (1.7-2.3) mg/dL Total Creatine Kinase (55-170) units/L Total Protein (6.3-8.2) g/dL Albumin (3.9-5) g/dL Crossmatch 10/12/18 10/12/18 10/12/18 Range/Units 07:34 08:28 09:29 WBC (4.5-11.0) K/mm3 RBC (3.65-5.03) M/mm3 Hgb (11.8-15.2) gm/dl Hct (35.5-45.6) % MCHC (32-34) % RDW (13.2-15.2) % POC ABG pCO2 (35-45) POC ABG pO2 (80-105) Sodium (137-145) mmol/L Potassium (3.6-5.0) mmol/L Chloride (98-107) mmol/L Carbon Dioxide (22-30) mmol/L BUN (9-20) mg/dL Creatinine (0.8-1.5) mg/dL Glucose (75-100) mg/dL POC Glucose 120 H 110 H 140 H (70-105) Calcium (8.4-10.2) mg/dL Magnesium (1.7-2.3) mg/dL Total Creatine Kinase (55-170) units/L Total Protein (6.3-8.2) g/dL Albumin (3.9-5) g/dL Crossmatch 10/12/18 Range/Units 11:55 WBC (4.5-11.0) K/mm3 RBC (3.65-5.03) M/mm3 Hgb (11.8-15.2) gm/dl Hct (35.5-45.6) % MCHC (32-34) % RDW (13.2-15.2) % POC ABG pCO2 (35-45) POC ABG pO2 (80-105) Sodium (137-145) mmol/L Potassium (3.6-5.0) mmol/L Chloride (98-107) mmol/L Carbon Dioxide (22-30) mmol/L BUN (9-20) mg/dL Creatinine (0.8-1.5) mg/dL Glucose (75-100) mg/dL POC Glucose 219 H (70-105) Calcium (8.4-10.2) mg/dL Magnesium (1.7-2.3) mg/dL Total Creatine Kinase (55-170) units/L Total Protein (6.3-8.2) g/dL Albumin (3.9-5) g/dL Crossmatch Diabetes panel 10/11/18 10/11/18 10/11/18 Range/Units 12:18 14:34 22:42 Sodium 135 L 135 L 136 L (137-145) mmol/L Potassium 2.8 L* 2.7 L* 2.9 L* (3.6-5.0) mmol/L Chloride 97.9 L 99.9 102.0 (98-107) mmol/L Carbon Dioxide 14 L 18 L 17 L (22-30) mmol/L BUN 67 H 68 H 61 H (9-20) mg/dL Creatinine 6.0 H 5.0 H 4.0 H (0.8-1.5) mg/dL Glucose 246 H 191 H 122 H (75-100) mg/dL Calcium 7.5 L 7.1 L 6.6 L (8.4-10.2) mg/dL AST (5-40) units/L ALT (7-56) units/L Alkaline Phosphatase (35-129) units/L Total Protein (6.3-8.2) g/dL Albumin (3.9-5) g/dL 10/12/18 10/12/18 Range/Units 04:20 06:25 Sodium 139 138 (137-145) mmol/L Potassium 2.6 L* 2.7 L* (3.6-5.0) mmol/L Chloride 102.8 103.8 (98-107) mmol/L Carbon Dioxide 20 L 19 L (22-30) mmol/L BUN 56 H 51 H (9-20) mg/dL Creatinine 4.0 H 3.6 H (0.8-1.5) mg/dL Glucose 134 H 113 H (75-100) mg/dL Calcium 6.4 L 6.4 L (8.4-10.2) mg/dL AST 25 (5-40) units/L ALT 10 (7-56) units/L Alkaline Phosphatase 109 (35-129) units/L Total Protein 5.8 L (6.3-8.2) g/dL Albumin 1.8 L (3.9-5) g/dL Calcium panel 10/11/18 10/11/18 10/11/18 Range/Units 12:18 14:34 22:42 Calcium 7.5 L 7.1 L 6.6 L (8.4-10.2) mg/dL Albumin (3.9-5) g/dL 10/12/18 10/12/18 Range/Units 04:20 06:25 Calcium 6.4 L 6.4 L (8.4-10.2) mg/dL Albumin 1.8 L (3.9-5) g/dL Pituitary panel 10/11/18 10/11/18 10/11/18 Range/Units 12:18 14:34 22:42 Sodium 135 L 135 L 136 L (137-145) mmol/L Potassium 2.8 L* 2.7 L* 2.9 L* (3.6-5.0) mmol/L Chloride 97.9 L 99.9 102.0 (98-107) mmol/L Carbon Dioxide 14 L 18 L 17 L (22-30) mmol/L BUN 67 H 68 H 61 H (9-20) mg/dL Creatinine 6.0 H 5.0 H 4.0 H (0.8-1.5) mg/dL Glucose 246 H 191 H 122 H (75-100) mg/dL Calcium 7.5 L 7.1 L 6.6 L (8.4-10.2) mg/dL 10/12/18 10/12/18 Range/Units 04:20 06:25 Sodium 139 138 (137-145) mmol/L Potassium 2.6 L* 2.7 L* (3.6-5.0) mmol/L Chloride 102.8 103.8 (98-107) mmol/L Carbon Dioxide 20 L 19 L (22-30) mmol/L BUN 56 H 51 H (9-20) mg/dL Creatinine 4.0 H 3.6 H (0.8-1.5) mg/dL Glucose 134 H 113 H (75-100) mg/dL Calcium 6.4 L 6.4 L (8.4-10.2) mg/dL Adrenal panel 10/11/18 10/11/18 10/11/18 Range/Units 12:18 14:34 22:42 Sodium 135 L 135 L 136 L (137-145) mmol/L Potassium 2.8 L* 2.7 L* 2.9 L* (3.6-5.0) mmol/L Chloride 97.9 L 99.9 102.0 (98-107) mmol/L Carbon Dioxide 14 L 18 L 17 L (22-30) mmol/L BUN 67 H 68 H 61 H (9-20) mg/dL Creatinine 6.0 H 5.0 H 4.0 H (0.8-1.5) mg/dL Glucose 246 H 191 H 122 H (75-100) mg/dL Calcium 7.5 L 7.1 L 6.6 L (8.4-10.2) mg/dL Total Bilirubin (0.1-1.2) mg/dL AST (5-40) units/L ALT (7-56) units/L Alkaline Phosphatase (35-129) units/L Total Protein (6.3-8.2) g/dL Albumin (3.9-5) g/dL 10/12/18 10/12/18 Range/Units 04:20 06:25 Sodium 139 138 (137-145) mmol/L Potassium 2.6 L* 2.7 L* (3.6-5.0) mmol/L Chloride 102.8 103.8 (98-107) mmol/L Carbon Dioxide 20 L 19 L (22-30) mmol/L BUN 56 H 51 H (9-20) mg/dL Creatinine 4.0 H 3.6 H (0.8-1.5) mg/dL Glucose 134 H 113 H (75-100) mg/dL Calcium 6.4 L 6.4 L (8.4-10.2) mg/dL Total Bilirubin 0.30 (0.1-1.2) mg/dL AST 25 (5-40) units/L ALT 10 (7-56) units/L Alkaline Phosphatase 109 (35-129) units/L Total Protein 5.8 L (6.3-8.2) g/dL Albumin 1.8 L (3.9-5) g/dL Assessment and Plan - Patient Problems (1) Sacral decubitus ulcer, stage IV Current Visit: Yes Status: Acute Plan to address problem: 1) I do not believe his sacral pressure ulcer is the source of his sepsis. 2) I will consult the Wound Care nurse for wound vac placement. 3) I would recommend off loading and a specialty bed. 4) I will see this pt weekly or more often prn while he is in house.
[2018-10-12] MEDS: PROTONIX 80 MG in NACL 0.9% 100 ML IV SCH ×2 (12:51→23:59)
[2018-10-12 13:13] LABS: Hematocrit 20.6 % (35.5-45.6); Hemoglobin 7.1 gm/dl (11.8-15.2)
[2018-10-12 13:25] LABS: Calcium 6.3 mg/dL (8.4-10.2)
[2018-10-12] MEDS ORDERED: POTASSIUM CHLORIDE FEEDTUBE ONE (16:04)
--- NOTE | 2018-10-12 17:40 | Progress Note ---
Assessment and Plan Assessment and plan: Dinora is a 58 year old male presenting from [place] ([facility]) Pt is a very poor historian, per medical records he has history of paroxysmal atrial fibrillation, hypertension, diabetes, Colosotomy and lack of coordination with Muscle weakness anal abscess with recent debridement in Aug 2018, chronic indwelling suarez who was referred to the ER from his hospital for behavioral medicine for evaluation of fever and low blood pressure and altered mental status. In the ER he was found to have urosepsis, acute renal failure and DKA with elevated troponin. Patient was unable to provided any information due to incoherence of his thoughts he complained of dry mouth per the ED Physician. He denies any chest pain, palpitations or shortness of breath. A report from the [place] revealed that he was noted this morning to be confused with shivering. Labs done the day prior to admission revealed a wbc of 31.4 per the staff. The patient in the ED was started on sepsis protocol and also pressers labs from hospital for behavioral medicine done 10/10/17: wbc 31.4, hgb 9.1, plt 271 Acute Toxic metabolic encephalopathy Septic Shock Severe Sepsis Hyperosmolar NonKetotic Hyperglycemia Uncontrolled DM MALCOLM secondary to vasomotor nephropathy Severe acute blood loss anemia on anemia of chronic disease Metabolic acidosis Colostomy Unstagable scaral pressure ulcer POA Afib with RVR Troponemia- Type 2 NSTEMI Hypokalemia Severe Protein calorie malnutrition Plan Continue supportive care Discontinue Insulin drip And start short acting sliding scale with qhs long acting insulin Discontinued Heparin drip in the setting of severe anemia Consulted GI Transfuse PRBC as needed Cardiology, crtts, ID, SURGICAL, nephrology input noted Sepsis protocol ET consult NOTED Wean pressors as tolerated PICC team for Access and D/C Right femoral Line. Replace electrolytes Fall precautions DVT/GI prophy The high probability of a clinically significant, sudden or life threatening deterioration of the [CARDIAC, RENAL, GI] system(s) required my full and direct attention, intervention and personal management. The aggregate critical care time was [35] minutes. This time is in addition to time spent performing reported procedures but includes the following: [X] Data Review and interpretation [X] Patient assessment and monitoring of vital signs [X] Documentation [X] Medication orders and management History Interval history: Patient seen and examined, improving mentation, but with noted low blood count this am, no clear evidence of maximo bleed Hospitalist Physical - Physical exam Narrative exam: General appearance: Present: mild distress, - EENT Eyes: Present: PERRL, EOM intact ENT: clear oral mucosa - Neck Neck: Present: supple, normal ROM - Respiratory Respiratory effort: normal Respiratory: bilateral: diminished - Cardiovascular Heart Sounds: Present: S1 & S2, gallop. Absent: systolic murmur - Extremities Extremities: no ischemia, pulses intact, pulses symmetrical, No edema, normal temperature, normal color Peripheral Pulses: within normal limits - Abdominal General gastrointestinal: Present: non-tender, non-distended, other (good pink colostomy site) - Integumentary Integumentary: Present: warm wound vac in place - Musculoskeletal Musculoskeletal: generalized weakness - Psychiatric Psychiatric: agitated - Neurologic Neurologic: other (encephalopathic) - Allied Health Allied health notes reviewed: nursing - Constitutional Vitals: Temp Pulse Resp BP Pulse Ox 97.7 F 116 H 13 106/64 96 10/12/18 16:45 10/12/18 16:45 10/12/18 16:45 10/12/18 16:45 10/12/18 16:45 General appearance: Present: mild distress, disheveled Results - Labs CBC & Chem 7: 10/12/18 12:55 10/12/18 12:55 Labs: Laboratory Last Values WBC 26.8 K/mm3 (4.5-11.0) H 10/12/18 04:20 RBC 2.22 M/mm3 (3.65-5.03) L 10/12/18 04:20 Hgb 7.1 gm/dl (11.8-15.2) L 10/12/18 12:55 Hct 20.6 % (35.5-45.6) L 10/12/18 12:55 MCV 87 fl (84-94) 10/12/18 04:20 MCH 30 pg (28-32) 10/12/18 04:20 MCHC 35 % (32-34) H 10/12/18 04:20 RDW 15.8 % (13.2-15.2) H 10/12/18 04:20 Plt Count 223 K/mm3 (140-440) 10/12/18 04:20 Add Manual Diff Complete 10/11/18 05:21 Total Counted 100 10/11/18 05:21 Seg Neuts % (Manual) 90.0 % (40.0-70.0) H 10/11/18 05:21 Band Neutrophils % 6.0 % 10/11/18 05:21 Lymphocytes % (Manual) 4.0 % (13.4-35.0) L 10/11/18 05:21 Reactive Lymphs % (Man) 0 % 10/11/18 05:21 Monocytes % (Manual) 0 % (0.0-7.3) 10/11/18 05:21 Eosinophils % (Manual) 0 % (0.0-4.3) 10/11/18 05:21 Basophils % (Manual) 0 % (0.0-1.8) 10/11/18 05:21 Metamyelocytes % 0 % 10/11/18 05:21 Myelocytes % 0 % 10/11/18 05:21 Promyelocytes % 0 % 10/11/18 05:21 Blast Cells % 0 % 10/11/18 05:21 Nucleated RBC % Not Reportable 10/11/18 05:21 Seg Neutrophils # Man 20.1 K/mm3 (1.8-7.7) H 10/11/18 05:21 Band Neutrophils # 1.3 K/mm3 10/11/18 05:21 Lymphocytes # (Manual) 0.9 K/mm3 (1.2-5.4) L 10/11/18 05:21 Abs React Lymphs (Man) 0.0 K/mm3 10/11/18 05:21 Monocytes # (Manual) 0.0 K/mm3 (0.0-0.8) 10/11/18 05:21 Eosinophils # (Manual) 0.0 K/mm3 (0.0-0.4) 10/11/18 05:21 Basophils # (Manual) 0.0 K/mm3 (0.0-0.1) 10/11/18 05:21 Metamyelocytes # 0.0 K/mm3 10/11/18 05:21 Myelocytes # 0.0 K/mm3 10/11/18 05:21 Promyelocytes # 0.0 K/mm3 10/11/18 05:21 Blast Cells # 0.0 K/mm3 10/11/18 05:21 WBC Morphology Not Reportable 10/11/18 05:21 Hypersegmented Neuts Not Reportable 10/11/18 05:21 Hyposegmented Neuts Not Reportable 10/11/18 05:21 Hypogranular Neuts Not Reportable 10/11/18 05:21 Smudge Cells Not Reportable 10/11/18 05:21 Toxic Granulation Not Reportable 10/11/18 05:21 Toxic Vacuolation Not Reportable 10/11/18 05:21 Dohle Bodies Not Reportable 10/11/18 05:21 Pelger-Huet Anomaly Not Reportable 10/11/18 05:21 Lisa Rods Not Reportable 10/11/18 05:21 Platelet Estimate Appears normal 10/11/18 05:21 Clumped Platelets Not Reportable 10/11/18 05:21 Plt Clumps, EDTA Not Reportable 10/11/18 05:21 Large Platelets Not Reportable 10/11/18 05:21 Giant Platelets Not Reportable 10/11/18 05:21 Platelet Satelliting Not Reportable 10/11/18 05:21 Plt Morphology Comment Not Reportable 10/11/18 05:21 RBC Morphology Not Reportable 10/11/18 05:21 Dimorphic RBCs Not Reportable 10/11/18 05:21 Polychromasia Few 10/11/18 05:21 Hypochromasia Not Reportable 10/11/18 05:21 Poikilocytosis 2+ 10/11/18 05:21 Anisocytosis 2+ 10/11/18 05:21 Microcytosis Not Reportable 10/11/18 05:21 Macrocytosis Not Reportable 10/11/18 05:21 Spherocytes Not Reportable 10/11/18 05:21 Pappenheimer Bodies Not Reportable 10/11/18 05:21 Sickle Cells Not Reportable 10/11/18 05:21 Target Cells Not Reportable 10/11/18 05:21 Tear Drop Cells Not Reportable 10/11/18 05:21 Ovalocytes 1+ 10/11/18 05:21 Helmet Cells Not Reportable 10/11/18 05:21 Brown-[place]res Bodies Not Reportable 10/11/18 05:21 D Lo Rings Not Reportable 10/11/18 05:21 Leslie Cells 2+ 10/11/18 05:21 Bite Cells Not Reportable 10/11/18 05:21 Crenated Cell Not Reportable 10/11/18 05:21 Elliptocytes Not Reportable 10/11/18 05:21 Acanthocytes (Spur) Few 10/11/18 05:21 Rouleaux Not Reportable 10/11/18 05:21 Hemoglobin C Crystals Not Reportable 10/11/18 05:21 Schistocytes Not Reportable 10/11/18 05:21 Malaria parasites Not Reportable 10/11/18 05:21 [place] Bodies Not Reportable 10/11/18 05:21 Hem Pathologist Commnt No 10/11/18 05:21 PT 17.1 Sec. (12.2-14.9) H 10/11/18 05:21 INR 1.35 (0.87-1.13) H 10/11/18 05:21 POC ABG pH 7.380 (7.35-7.45) 10/11/18 17:53 POC ABG pCO2 28.2 (35-45) L 10/11/18 17:53 POC ABG pO2 60 (80-105) L 10/11/18 17:53 POC ABG HCO3 16.7 10/11/18 17:53 POC ABG Total CO2 18 10/11/18 17:53 POC ABG O2 Sat 91 10/11/18 17:53 POC ABG Base Excess -8 10/11/18 17:53 VBG pH 7.226 (7.320-7.420) L 10/11/18 05:21 FiO2 2 % 10/11/18 17:53 Sodium 136 mmol/L (137-145) L 10/12/18 12:55 Potassium 2.9 mmol/L (3.6-5.0) L* 10/12/18 12:55 Chloride 101.3 mmol/L (98-107) 10/12/18 12:55 Carbon Dioxide 16 mmol/L (22-30) L 10/12/18 12:55 Anion Gap 22 mmol/L 10/12/18 12:55 BUN 48 mg/dL (9-20) H 10/12/18 12:55 Creatinine 3.1 mg/dL (0.8-1.5) H 10/12/18 12:55 Estimated GFR 25 ml/min 10/12/18 12:55 BUN/Creatinine Ratio 15 % 10/12/18 12:55 Glucose 258 mg/dL (75-100) H 10/12/18 12:55 POC Glucose 219 (70-105) H 10/12/18 11:55 Lactic Acid 1.50 mmol/L (0.7-2.0) 10/12/18 04:20 Calcium 6.3 mg/dL (8.4-10.2) L 10/12/18 12:55 Phosphorus 4.80 mg/dL (2.5-4.5) H 10/11/18 06:51 Magnesium 4.80 mg/dL (1.7-2.3) H 10/12/18 12:55 Total Bilirubin 0.30 mg/dL (0.1-1.2) 10/12/18 04:20 AST 25 units/L (5-40) 10/12/18 04:20 ALT 10 units/L (7-56) 10/12/18 04:20 Alkaline Phosphatase 109 units/L (35-129) 10/12/18 04:20 Total Creatine Kinase 933 units/L (55-170) H 10/11/18 17:58 CK-MB (CK-2) 2.8 ng/mL (0.0-4.0) 10/11/18 17:58 CK-MB (CK-2) Rel Index 0.3 (0-4) 10/11/18 17:58 Troponin T 0.116 ng/mL (0.00-0.029) H* 10/11/18 05:21 Total Protein 5.8 g/dL (6.3-8.2) L 10/12/18 04:20 Albumin 1.8 g/dL (3.9-5) L 10/12/18 04:20 Albumin/Globulin Ratio 0.5 % 10/12/18 04:20 Triglycerides 120 mg/dL (2-149) 10/11/18 05:21 Cholesterol 26 mg/dL (50-199) L 10/11/18 05:21 LDL Cholesterol Direct 4 mg/dL (50-130) L 10/11/18 05:21 HDL Cholesterol 7 mg/dL (40-59) L 10/11/18 05:21 Cholesterol/HDL Ratio 3.71 % 10/11/18 05:21 Urine Color Christine (Yellow) 10/11/18 Unknown Urine Turbidity Turbid (Clear) 10/11/18 Unknown Urine pH 5.0 (5.0-7.0) 10/11/18 Unknown Ur Specific [place] 1.019 (1.003-1.030) 10/11/18 Unknown Urine Protein 100 mg/dl mg/dL (Negative) 10/11/18 Unknown Urine Glucose (UA) Neg mg/dL (Negative) 10/11/18 Unknown Urine Ketones Neg mg/dL (Negative) 10/11/18 Unknown Urine Blood Sm (Negative) 10/11/18 Unknown Urine Nitrite Neg (Negative) 10/11/18 Unknown Urine Bilirubin Neg (Negative) 10/11/18 Unknown Urine Urobilinogen < 2.0 mg/dL (<2.0) 10/11/18 Unknown Ur Leukocyte Esterase Lg (Negative) 10/11/18 Unknown Urine WBC (Auto) > 182.0 /HPF (0.0-6.0) H 10/11/18 Unknown Urine RBC (Auto) 57.0 /HPF (0.0-6.0) 10/11/18 Unknown U Epithel Cells (Auto) 1.0 /HPF (0-13.0) 10/11/18 06:08 Urine Bacteria (Auto) 3+ /HPF (Negative) 10/11/18 Unknown Urine WBC Clumps 3+ /HPF 10/11/18 Unknown Urine Mucus 2+ /HPF 10/11/18 Unknown Blood Type A POSITIVE 10/11/18 09:05 Antibody Screen Negative 10/11/18 09:05 Crossmatch See Detail 10/11/18 09:05 Nutrition/Malnutrition Assess - Dietary Evaluation Nutrition/Malnutrition Findings: Nutrition Notes Start: 10/12/18 12:55 Freq: Status: Active Protocol: Document 10/12/18 12:55 TW (Rec: 10/12/18 13:36 TW [email or web address]) Co-Sign 10/12/18 12:55 OL Nutrition Notes Need for Assessment generated from: MD Order Initial or Follow up Assessment Current Diagnosis Acute Kidney Injury Decubitus(Pressure Ulcer) Diabetes Hypertension Other Pertinent Diagnosis Sepsis, Stg. 4 decubitus, hyperglycemia, s/p colostomy Current Diet NPO Labs/Tests K: 2.7 BUN: 51 Cr: 3.6 Pertinent Medications Norepinephrine Height 6 ft Weight 78.018 kg [place] Body Weight (lbs) 178.0 BMI 23.3 Weight Status Appropriate Subjective/Other Information MD consult for malnutrition. Waiting for dysphagia screen results in order to provide diet to pt. Burn Absent Trauma Absent Current % PO Negligible #1 Nutrition Diagnosis Inadequate oral intake Etiology Possible dysphagia As Evidenced by Signs and Symptoms NPO status Is patient on ventilator? No Is Patient Ambulatory and/or Out of Bed No REE-([facility]-confined to bed) [phone] Calculation Used for Recommendations [facility] Additional Notes Pro: 94-156g/day (1.2-2 g/kg BW) Fluid: 1 ml/kcal Nutrition Intervention Change Diet Order: Advance to consistent CHO diet if medically feasible Nutrition Support: TF consult if pt. fails swallow evaluation Add Supplement/Snack (indicate name/kcal Norm BID for wound healing if /protein ) diet is advanced Provides kCal: 190 Provides Protein (gm) 5 Goal #1 Diet advancement if medically feasible Goal #2 TF consult if needed Anticipated Discharge Needs: Unknown at this time Follow-Up By: 10/13/18 Additional Comments F/u for [employer] note, diet advancement or TF consult
[2018-10-12] MEDS: MAXIPIME/NS 2 GM/100 ML 2 GM/100 ML BAG IV SCH (18:09)
[2018-10-12 19:34] LABS: Hematocrit 22.9 % (35.5-45.6); Hemoglobin 7.7 gm/dl (11.8-15.2)
[2018-10-12] MEDS: MORPHINE IV PRN (23:56)
[2018-10-13] MEDS: HumaLOG SUB-Q SCH ×3 (00:39→13:04)
[2018-10-13] MEDS: Vasostrict 20 UNIT in NACL 0.9% 100 ML IV SCH (03:15)
[2018-10-13] MEDS: D5W/0.45% NACL/KCL 20 MEQ 20 MEQ/1,000 ML BAG IV SCH (03:51)
[2018-10-13] MEDS: DUONEB *Not for PRN Use IH SCH ×4 (05:06→19:38)
[2018-10-13] MEDS: FLAGYL 500 MG/100 ML 500 MG/100 ML BAG IV SCH ×3 (06:01→22:37)
[2018-10-13] MEDS: NS/KCL 20MEQ 20 MEQ/1,000 ML BAG IV SCH ×2 (06:15→22:38)
[2018-10-13 06:54] LABS: Hematocrit 23.2 % (35.5-45.6); Hemoglobin 7.9 gm/dl (11.8-15.2); Mean Corpuscular HGB Conc 34 % (32-34); Mean Corpuscular Volume 87 fl (84-94); Platelet Count 190 K/mm3 (140-440); Red Blood Count 2.67 M/mm3 (3.65-5.03); Red Cell Distribution Width 16.4 % (13.2-15.2)
[2018-10-13 07:08] LABS: Calcium 6.6 mg/dL (8.4-10.2)
[2018-10-13] MEDS ORDERED: NACL 0.9% IV SCH (08:00)
[2018-10-13] MEDS ORDERED: CARDIZEM IV SCH (08:00)
[2018-10-13] MEDS: KCL 20MEQ/100ML 20 MEQ/100 ML BAG IV SCH ×2 (08:24→10:30)
--- NOTE | 2018-10-13 09:31 | Progress Note ---
Assessment and Plan Impression: * Acute kidney secondary to ATN * Sepsis - ?urinary source --Blood cx - NGTD --Urine cx - greater than 2 organisms * Metabolic acidosis secondary to lactic acidosis * UTI * Hypokalemia * Anemia Plan: * Renal function improved - SCr trending down * D/C'd Bicarb gtt; IVF per primary team * Replete K prn - note orders * Abx per primary team * Transfusion per primary team - pRBC transfusion in progress * Pressors prn to maintain MAP>65 * Replete lytes prn * Dose medications for renal function * Avoid potential nephrotoxins Subjective Date of service: 10/13/18 Principal diagnosis: sepsis Interval history: resting well in bed today Objective - Exam Narrative Exam: General appearance: chronically ill EENT: other (poor dentition) Respiratory: Present: Clear to Ascultation Cardiology: regular, tachycardia Gastrointestinal: other (ostomy) Integumentary: no rash Psychiatric: cooperative - Vital Signs Vital signs: Vital Signs - 12hr 10/12/18 10/12/18 10/12/18 21:40 21:50 22:00 Temperature Pulse Rate 102 H 100 H 102 H Pulse Rate [ Anterior Bilateral Throughout] Pulse Rate [ From Monitor] Respiratory 28 H 25 H 17 Rate Respiratory Rate [Anterior Bilateral Throughout] Blood Pressure 99/62 107/64 84/60 O2 Sat by Pulse 91 Oximetry 10/12/18 10/12/18 10/12/18 22:05 22:10 22:20 Temperature 98.4 F 98.6 F Pulse Rate 102 H 99 H 102 H Pulse Rate [ Anterior Bilateral Throughout] Pulse Rate [ From Monitor] Respiratory 21 24 21 Rate Respiratory Rate [Anterior Bilateral Throughout] Blood Pressure 84/60 84/60 90/60 O2 Sat by Pulse 98 96 98 Oximetry 10/12/18 10/12/18 10/12/18 22:30 22:35 22:40 Temperature 98.6 F Pulse Rate 102 H 101 H Pulse Rate [ Anterior Bilateral Throughout] Pulse Rate [ From Monitor] Respiratory 28 H 28 H 27 H Rate Respiratory Rate [Anterior Bilateral Throughout] Blood Pressure 94/61 101/60 94/61 O2 Sat by Pulse 96 98 95 Oximetry 10/12/18 10/12/18 10/12/18 22:50 23:00 23:06 Temperature 98.6 F 98.8 F Pulse Rate 101 H 102 H Pulse Rate [ Anterior Bilateral Throughout] Pulse Rate [ From Monitor] Respiratory 23 16 Rate Respiratory Rate [Anterior Bilateral Throughout] Blood Pressure 93/60 98/58 O2 Sat by Pulse 95 94 Oximetry 10/12/18 10/12/18 10/12/18 23:10 23:20 23:30 Temperature 98.6 F Pulse Rate 101 H 98 H 98 H Pulse Rate [ Anterior Bilateral Throughout] Pulse Rate [ From Monitor] Respiratory 18 28 H 27 H Rate Respiratory Rate [Anterior Bilateral Throughout] Blood Pressure 98/58 95/54 101/60 O2 Sat by Pulse 93 95 95 Oximetry 10/12/18 10/12/18 10/12/18 23:40 23:49 23:50 Temperature 98.6 F Pulse Rate 100 H 99 H 98 H Pulse Rate [ Anterior Bilateral Throughout] Pulse Rate [ From Monitor] Respiratory 29 H 37 H 30 H Rate Respiratory Rate [Anterior Bilateral Throughout] Blood Pressure 101/60 106/58 106/58 O2 Sat by Pulse 95 96 96 Oximetry 10/12/18 10/12/18 10/13/18 23:56 23:58 00:00 Temperature Pulse Rate 100 H 97 H Pulse Rate [ Anterior Bilateral Throughout] Pulse Rate [ From Monitor] Respiratory 18 25 H 30 H Rate Respiratory Rate [Anterior Bilateral Throughout] Blood Pressure 106/58 100/57 O2 Sat by Pulse 97 96 Oximetry 10/13/18 10/13/18 10/13/18 00:04 00:05 00:10 Temperature Pulse Rate 98 H 98 H 99 H Pulse Rate [ Anterior Bilateral Throughout] Pulse Rate [ 96 H From Monitor] Respiratory 21 16 25 H Rate Respiratory Rate [Anterior Bilateral Throughout] Blood Pressure 100/57 100/57 O2 Sat by Pulse 95 95 95 Oximetry 10/13/18 10/13/18 10/13/18 00:20 00:26 00:30 Temperature Pulse Rate 99 H 97 H Pulse Rate [ Anterior Bilateral Throughout] Pulse Rate [ From Monitor] Respiratory 24 17 28 H Rate Respiratory Rate [Anterior Bilateral Throughout] Blood Pressure 101/59 101/60 O2 Sat by Pulse 97 97 Oximetry 10/13/18 10/13/18 10/13/18 00:40 00:50 01:00 Temperature Pulse Rate 101 H 99 H 106 H Pulse Rate [ Anterior Bilateral Throughout] Pulse Rate [ From Monitor] Respiratory 22 24 30 H Rate Respiratory Rate [Anterior Bilateral Throughout] Blood Pressure 101/60 101/60 111/73 O2 Sat by Pulse 97 95 92 Oximetry 10/13/18 10/13/18 10/13/18 01:05 01:10 01:20 Temperature 98.6 F Pulse Rate 101 H 100 H Pulse Rate [ Anterior Bilateral Throughout] Pulse Rate [ 96 H From Monitor] Respiratory 16 31 H 32 H Rate Respiratory Rate [Anterior Bilateral Throughout] Blood Pressure 111/73 112/72 O2 Sat by Pulse 95 94 96 Oximetry 10/13/18 10/13/18 10/13/18 01:30 01:40 01:50 Temperature 98.6 F Pulse Rate 104 H 102 H 100 H Pulse Rate [ Anterior Bilateral Throughout] Pulse Rate [ From Monitor] Respiratory 22 28 H 32 H Rate Respiratory Rate [Anterior Bilateral Throughout] Blood Pressure 105/71 105/71 101/68 O2 Sat by Pulse 93 93 96 Oximetry 10/13/18 10/13/18 10/13/18 02:00 02:10 02:20 Temperature Pulse Rate 102 H 100 H 98 H Pulse Rate [ Anterior Bilateral Throughout] Pulse Rate [ 96 H From Monitor] Respiratory 16 25 H 24 Rate Respiratory Rate [Anterior Bilateral Throughout] Blood Pressure 106/70 106/70 103/69 O2 Sat by Pulse 95 97 97 Oximetry 10/13/18 10/13/18 10/13/18 02:30 02:40 02:50 Temperature Pulse Rate 98 H 95 H 97 H Pulse Rate [ Anterior Bilateral Throughout] Pulse Rate [ From Monitor] Respiratory 30 H 23 26 H Rate Respiratory Rate [Anterior Bilateral Throughout] Blood Pressure 102/68 102/68 108/72 O2 Sat by Pulse 93 99 97 Oximetry 10/13/18 10/13/18 10/13/18 03:00 03:05 03:10 Temperature Pulse Rate 95 H 95 H 96 H Pulse Rate [ Anterior Bilateral Throughout] Pulse Rate [ From Monitor] Respiratory 25 H 25 H Rate Respiratory Rate [Anterior Bilateral Throughout] Blood Pressure 107/67 107/67 O2 Sat by Pulse 96 97 Oximetry 10/13/18 10/13/18 10/13/18 03:20 03:30 03:40 Temperature Pulse Rate 98 H 96 H 101 H Pulse Rate [ Anterior Bilateral Throughout] Pulse Rate [ From Monitor] Respiratory 24 21 26 H Rate Respiratory Rate [Anterior Bilateral Throughout] Blood Pressure 110/71 111/69 111/69 O2 Sat by Pulse 97 94 97 Oximetry 10/13/18 10/13/18 10/13/18 03:50 04:00 04:10 Temperature 98.4 F Pulse Rate 102 H 100 H 93 H Pulse Rate [ Anterior Bilateral Throughout] Pulse Rate [ From Monitor] Respiratory 18 15 21 Rate Respiratory Rate [Anterior Bilateral Throughout] Blood Pressure 115/77 115/77 O2 Sat by Pulse 93 98 96 Oximetry 10/13/18 10/13/18 10/13/18 04:20 04:30 04:40 Temperature Pulse Rate 95 H 101 H 102 H Pulse Rate [ Anterior Bilateral Throughout] Pulse Rate [ From Monitor] Respiratory 16 28 H 30 H Rate Respiratory Rate [Anterior Bilateral Throughout] Blood Pressure 99/60 106/70 106/70 O2 Sat by Pulse 99 86 98 Oximetry 10/13/18 10/13/18 10/13/18 04:50 05:00 05:10 Temperature Pulse Rate 99 H 96 H 100 H Pulse Rate [ Anterior Bilateral Throughout] Pulse Rate [ From Monitor] Respiratory 22 24 28 H Rate Respiratory Rate [Anterior Bilateral Throughout] Blood Pressure 106/70 103/67 103/67 O2 Sat by Pulse 98 95 94 Oximetry 10/13/18 10/13/18 10/13/18 05:15 08:25 08:29 Temperature Pulse Rate 95 H 102 H Pulse Rate [ 100 H Anterior Bilateral Throughout] Pulse Rate [ 96 H From Monitor] Respiratory 16 Rate Respiratory 22 Rate [Anterior Bilateral Throughout] Blood Pressure 112/72 O2 Sat by Pulse 95 Oximetry 10/13/18 10/13/18 08:31 08:40 Temperature Pulse Rate Pulse Rate [ 103 H Anterior Bilateral Throughout] Pulse Rate [ From Monitor] Respiratory Rate Respiratory 20 Rate [Anterior Bilateral Throughout] Blood Pressure O2 Sat by Pulse 99 Oximetry - Lab 10/13/18 05:30 10/13/18 05:30 Most recent lab results Calcium 6.6 mg/dL (8.4-10.2) L 10/13/18 05:30 Phosphorus 4.80 mg/dL (2.5-4.5) H 10/11/18 06:51 Magnesium 4.80 mg/dL (1.7-2.3) H 10/12/18 12:55 Medications & Allergies - Medications Allergies/Adverse Reactions: Allergies No Known Allergies Allergy (Unverified 10/11/18 05:00) Home Medications: Home Medications Medication Instructions Recorded Confirmed Last Taken Type Acetaminophen [Acetaminophen ER] 650 mg PO Q6H PRN 10/11/18 10/11/18 Unknown History Allopurinol 300 mg PO QDAY 10/11/18 10/11/18 Unknown History Amlodipine Besylate [Norvasc] 5 mg PO DAILY 10/11/18 10/11/18 Unknown History Atorvastatin [Lipitor Tab] 80 mg PO QHS 10/11/18 10/11/18 Unknown History Calcium Carbonate [Calcium Antacid] 200 mg PO TID 10/11/18 10/11/18 Unknown History Collagenase Clostridium Hist. 1 applic TP BID 10/11/18 10/11/18 Unknown History [Santyl] Collagenase Clostridium Hist. 1 applic TP QPM 10/11/18 10/11/18 Unknown History [Santyl] HYDROcodone/APAP 7.5-325 [[place] 1 each PO Q4HR PRN 10/11/18 10/11/18 Unknown History 7.5/325] Metformin HCl [Glucophage] 500 mg PO BID 10/11/18 10/11/18 Unknown History Mirtazapine [Remeron] 15 mg PO HS 10/11/18 10/11/18 Unknown History Sulfamethoxazole/Trimethoprim 1 each PO BID 10/11/18 10/11/18 Unknown History [Bactrim DS TAB] Active Medications: Generic Name Dose Route Start Last Admin Trade Name Freq PRN Reason Stop Dose Admin Acetaminophen 650 mg 10/12/18 06:45 Tylenol PO Q4H PRN Pain, Mild (1-3) Albuterol 2.5 mg 10/11/18 08:21 Proventil IH Q3HRT PRN Shortness Of Breath Albuterol/Ipratropium 1 ampul 10/11/18 14:00 10/13/18 08:28 Duoneb *Not For Prn Use* IH 1 ampul Q6HRT FRANCISCO Administration Dextrose 0 ml 10/11/18 06:14 10/12/18 01:48 D50w (25gm) Syringe IV 20 ml ONCE PRN Administration Hypoglycemia Norepinephrine 4 mg in 250 mls @ 7.5 mls/hr 10/11/18 06:00 10/12/18 07:10 Levophed Drip 4 Mg/Ns 250 Ml IV 10 mcg/min TITR FRANCISCO 37.5 mls/hr Administration Protocol 2 MCG/MIN Cefepime HCl 2 gm in 100 mls @ 200 mls/hr 10/11/18 18:00 10/12/18 18:09 Maxipime/Ns 2 Gm/100 Ml IV 200 mls/hr Q24H FRANCISCO Administration Protocol Metronidazole 500 mg in 100 mls @ 100 mls/hr 10/11/18 14:00 10/13/18 06:01 Flagyl 500 Mg/100 Ml IV 100 mls/hr Q8HR FRANCISCO Administration Protocol Vasopressin 20 unit/ Sodium 101 mls @ 9.09 mls/hr 10/11/18 17:00 10/13/18 08:26 Chloride IV 0 units/min TITR FRANCISCO 0 mls/hr Infusion 0.03 UNITS/MIN Pantoprazole Sodium 80 mg/ 100 mls @ 10 mls/hr 10/12/18 12:30 10/12/18 23:59 Sodium Chloride IV 8 mg/hr DIRECT FRANCISCO 10 mls/hr Administration 8 MG/HR Potassium Chloride/Sodium Chloride 20 meq in 1,000 mls @ 100 mls/hr 10/13/18 06:00 10/13/18 06:15 Ns/Kcl 20meq IV 100 mls/hr DIRECT FRANCISCO Administration Diltiazem HCl 100 mg/ Sodium 100 mls @ 5 mls/hr 10/13/18 08:00 10/13/18 08:25 Chloride IV 5 mg/hr TITR FRANCISCO 5 mls/hr Administration Protocol 5 MG/HR Potassium Chloride 20 meq in 100 mls @ 50 mls/hr 10/13/18 08:00 10/13/18 08:24 Kcl 20meq/100ml IV 10/13/18 11:59 50 mls/hr Q2H FRANCISCO Administration Vancomycin HCl 1,250 mg/ 275 mls @ 166.667 mls/hr 10/13/18 10:00 Sodium Chloride IV 10/13/18 11:38 ONCE ONE Insulin Glargine 10 units 10/12/18 22:00 10/12/18 22:19 Lantus SUB-Q 10 units QHS FRANCISCO Administration Insulin Human Lispro 0 unit 10/12/18 09:00 10/13/18 06:02 Humalog SUB-Q 8 unit Q6HR FRANCISCO Administration Protocol Morphine Sulfate 4 mg 10/12/18 22:30 10/12/18 23:56 Morphine IV 4 mg Q4H PRN Administration Pain , Severe (7-10) Ondansetron HCl 4 mg 10/11/18 09:30 Zofran IV Q8H PRN Nausea And Vomiting Sodium Chloride 10 ml 10/11/18 10:00 10/12/18 22:13 Sodium Chloride Flush Syringe 10 Ml IV 10 ml BID FRANCISCO Administration Sodium Chloride 10 ml 10/11/18 09:00 Sodium Chloride Flush Syringe 10 Ml IV PRN PRN LINE FLUSH
[2018-10-13] MEDS ORDERED: VANCOMYCIN 1,250 MG in NACL 0.9% 250ML 250 ML IV ONE (10:00)
--- NOTE | 2018-10-13 10:01 | Progress Note ---
Assessment and Plan Assessment: Severe sepsis/hypotension Paroxysmal atrial fibrillation with RVR Anemia - s/p PRBC tx Urinary tract infection Sacral wound Elevated troponin, likely due to hypotension/acute kidney injury Acute renal failure H/o hypertension Uncontrolled diabetes / ? HHNK Hypokalemia / hypomag Plan: For EGD today. Optimize HR - pt currently weaned off levophed, pt currently NPO, cont cardizem gtt and transition to PO once enteral intake is resumed. No systemic AC at this time in setting of severe anemia. Replete K+. The patient has been seen in conjunction with Dr. Lois Marcus who agrees with the assessment and plan of care. Subjective Date of service: 10/13/18 Principal diagnosis: sepsis Interval history: pt resting in bed, lethargic, no current cardiac complaints. in AFib on tele, HR 110s, cardizem gtt infusing. Objective Last Vital Signs Temp 98 F 10/13/18 08:00 Pulse 113 H 10/13/18 09:40 Resp 28 H 10/13/18 09:40 BP 109/73 10/13/18 09:40 Pulse Ox 91 10/13/18 09:40 - Physical Examination General: Other (lethargic) HEENT: Positive: Normocephaly, Mucus Membranes Moist Neck: Positive: neck supple, trachea midline Cardiac: Positive: irregularly irregular, S1/S2 Lungs: Positive: Decreased Breath Sounds Neuro: Positive: Other (disoriented) Abdomen: Positive: Soft Extremities: Absent: edema - Labs and Meds CBC 10/12/18 10/12/18 10/13/18 Range/Units 12:55 19:23 05:30 WBC 19.2 H (4.5-11.0) K/mm3 RBC 2.67 L (3.65-5.03) M/mm3 Hgb 7.1 L 7.7 L 7.9 L (11.8-15.2) gm/dl Hct 20.6 L 22.9 L 23.2 L (35.5-45.6) % Plt Count 190 (140-440) K/mm3 Comprehensive Metabolic Panel 10/12/18 10/13/18 Range/Units 12:55 05:30 Sodium 136 L 135 L (137-145) mmol/L Potassium 2.9 L* 2.8 L* (3.6-5.0) mmol/L Chloride 101.3 103.6 (98-107) mmol/L Carbon Dioxide 16 L 17 L (22-30) mmol/L BUN 48 H 37 H (9-20) mg/dL Creatinine 3.1 H 2.0 H (0.8-1.5) mg/dL Glucose 258 H 383 H (75-100) mg/dL Calcium 6.3 L 6.6 L (8.4-10.2) mg/dL - Imaging and Cardiology EKG: image reviewed Echo: report reviewed (EF 60-65%, mild TR. ) - Telemetry EKG Rhythm: Atrial Fibrillation - EKG Sinus rhythms and dysrhythmias: sinus tachycardia
--- NOTE | 2018-10-13 10:47 | Progress Note ---
Assessment and Plan Assessment and plan: Dinora is a 58 year old male presenting from [facility] ([facility]) Pt is a very poor historian, per medical records he has history of paroxysmal atrial fibrillation, hypertension, diabetes, Colosotomy and lack of coordination with Muscle weakness anal abscess with recent debridement in Aug 2018, chronic indwelling suarez who was referred to the ER from his snf for evaluation of fever and low blood pressure and altered mental status. In the ER he was found to have urosepsis, acute renal failure and DKA with elevated troponin. Patient was unable to provided any information due to incoherence of his thoughts he complained of dry mouth per the ED Physician. He denies any chest pain, palpitations or shortness of breath. A report from the [facility] revealed that he was noted this morning to be confused with shivering. Labs done the day prior to admission revealed a wbc of 31.4 per the staff. The patient in the ED was started on sepsis protocol and also pressers labs from snf done 10/10/17: wbc 31.4, hgb 9.1, plt 271 Acute Toxic metabolic encephalopathy Septic Shock Severe Sepsis Hyperosmolar NonKetotic Hyperglycemia Uncontrolled DM MALCOLM secondary to vasomotor nephropathy Severe acute blood loss anemia on anemia of chronic disease Metabolic acidosis Colostomy Unstagable scaral pressure ulcer POA Afib with RVR Troponemia- Type 2 NSTEMI Hypokalemia Severe Protein calorie malnutrition Plan Continue supportive care Increase long acting insulin Give additional insulin today Regular 12 in addition to high dose sliding scale Discontinued Heparin drip in the setting of severe anemia Renal function improvement noted Hgb improved following 3 units PRBC Consulted GI Transfuse PRBC as needed Cardiology, global cto, ID, SURGICAL, nephrology input noted Sepsis protocol ET consult NOTED Wean pressors as tolerated PICC team for Access and D/C Right femoral Line. Replace electrolytes Fall precautions DVT/GI prophy The high probability of a clinically significant, sudden or life threatening deterioration of the [CARDIAC, RENAL, GI] system(s) required my full and direct attention, intervention and personal management. The aggregate critical care time was [35] minutes. This time is in addition to time spent performing reported procedures but includes the following: [X] Data Review and interpretation [X] Patient assessment and monitoring of vital signs [X] Documentation [X] Medication orders and management History Interval history: Patient seen and examined, improving mentation, Hospitalist Physical - Physical exam Narrative exam: General appearance: Present: mild distress, - EENT Eyes: Present: PERRL, EOM intact ENT: clear oral mucosa - Neck Neck: Present: supple, normal ROM - Respiratory Respiratory effort: normal Respiratory: bilateral: diminished - Cardiovascular Heart Sounds: Present: S1 & S2, gallop. Absent: systolic murmur - Extremities Extremities: no ischemia, pulses intact, pulses symmetrical, No edema, normal temperature, normal color Peripheral Pulses: within normal limits - Abdominal General gastrointestinal: Present: non-tender, non-distended, other (good pink colostomy site) - Integumentary Integumentary: Present: warm wound vac in place - Musculoskeletal Musculoskeletal: generalized weakness - Psychiatric Psychiatric: agitated - Neurologic Neurologic: other (encephalopathic) - Allied Health Allied health notes reviewed: nursing - Constitutional Vitals: Temp Pulse Resp BP Pulse Ox 98 F 113 H 28 H 109/73 91 10/13/18 08:00 10/13/18 09:40 10/13/18 09:40 10/13/18 09:40 10/13/18 09:40 General appearance: Present: mild distress, disheveled Results - Labs CBC & Chem 7: 10/14/18 04:36 10/14/18 04:36 Labs: Laboratory Last Values WBC 19.2 K/mm3 (4.5-11.0) H 10/13/18 05:30 RBC 2.67 M/mm3 (3.65-5.03) L 10/13/18 05:30 Hgb 7.9 gm/dl (11.8-15.2) L 10/13/18 05:30 Hct 23.2 % (35.5-45.6) L 10/13/18 05:30 MCV 87 fl (84-94) 10/13/18 05:30 MCH 30 pg (28-32) 10/13/18 05:30 MCHC 34 % (32-34) 10/13/18 05:30 RDW 16.4 % (13.2-15.2) H 10/13/18 05:30 Plt Count 190 K/mm3 (140-440) 10/13/18 05:30 Add Manual Diff Complete 10/11/18 05:21 Total Counted 100 10/11/18 05:21 Seg Neuts % (Manual) 90.0 % (40.0-70.0) H 10/11/18 05:21 Band Neutrophils % 6.0 % 10/11/18 05:21 Lymphocytes % (Manual) 4.0 % (13.4-35.0) L 10/11/18 05:21 Reactive Lymphs % (Man) 0 % 10/11/18 05:21 Monocytes % (Manual) 0 % (0.0-7.3) 10/11/18 05:21 Eosinophils % (Manual) 0 % (0.0-4.3) 10/11/18 05:21 Basophils % (Manual) 0 % (0.0-1.8) 10/11/18 05:21 Metamyelocytes % 0 % 10/11/18 05:21 Myelocytes % 0 % 10/11/18 05:21 Promyelocytes % 0 % 10/11/18 05:21 Blast Cells % 0 % 10/11/18 05:21 Nucleated RBC % Not Reportable 10/11/18 05:21 Seg Neutrophils # Man 20.1 K/mm3 (1.8-7.7) H 10/11/18 05:21 Band Neutrophils # 1.3 K/mm3 10/11/18 05:21 Lymphocytes # (Manual) 0.9 K/mm3 (1.2-5.4) L 10/11/18 05:21 Abs React Lymphs (Man) 0.0 K/mm3 10/11/18 05:21 Monocytes # (Manual) 0.0 K/mm3 (0.0-0.8) 10/11/18 05:21 Eosinophils # (Manual) 0.0 K/mm3 (0.0-0.4) 10/11/18 05:21 Basophils # (Manual) 0.0 K/mm3 (0.0-0.1) 10/11/18 05:21 Metamyelocytes # 0.0 K/mm3 10/11/18 05:21 Myelocytes # 0.0 K/mm3 10/11/18 05:21 Promyelocytes # 0.0 K/mm3 10/11/18 05:21 Blast Cells # 0.0 K/mm3 10/11/18 05:21 WBC Morphology Not Reportable 10/11/18 05:21 Hypersegmented Neuts Not Reportable 10/11/18 05:21 Hyposegmented Neuts Not Reportable 10/11/18 05:21 Hypogranular Neuts Not Reportable 10/11/18 05:21 Smudge Cells Not Reportable 10/11/18 05:21 Toxic Granulation Not Reportable 10/11/18 05:21 Toxic Vacuolation Not Reportable 10/11/18 05:21 Dohle Bodies Not Reportable 10/11/18 05:21 Pelger-Huet Anomaly Not Reportable 10/11/18 05:21 Lisa Rods Not Reportable 10/11/18 05:21 Platelet Estimate Appears normal 10/11/18 05:21 Clumped Platelets Not Reportable 10/11/18 05:21 Plt Clumps, EDTA Not Reportable 10/11/18 05:21 Large Platelets Not Reportable 10/11/18 05:21 Giant Platelets Not Reportable 10/11/18 05:21 Platelet Satelliting Not Reportable 10/11/18 05:21 Plt Morphology Comment Not Reportable 10/11/18 05:21 RBC Morphology Not Reportable 10/11/18 05:21 Dimorphic RBCs Not Reportable 10/11/18 05:21 Polychromasia Few 10/11/18 05:21 Hypochromasia Not Reportable 10/11/18 05:21 Poikilocytosis 2+ 10/11/18 05:21 Anisocytosis 2+ 10/11/18 05:21 Microcytosis Not Reportable 10/11/18 05:21 Macrocytosis Not Reportable 10/11/18 05:21 Spherocytes Not Reportable 10/11/18 05:21 Pappenheimer Bodies Not Reportable 10/11/18 05:21 Sickle Cells Not Reportable 10/11/18 05:21 Target Cells Not Reportable 10/11/18 05:21 Tear Drop Cells Not Reportable 10/11/18 05:21 Ovalocytes 1+ 10/11/18 05:21 Helmet Cells Not Reportable 10/11/18 05:21 [place] Bodies Not Reportable 10/11/18 05:21 [place] Rings Not Reportable 10/11/18 05:21 [place] Cells 2+ 10/11/18 05:21 Bite Cells Not Reportable 10/11/18 05:21 Crenated Cell Not Reportable 10/11/18 05:21 Elliptocytes Not Reportable 10/11/18 05:21 Acanthocytes (Spur) Few 10/11/18 05:21 Rouleaux Not Reportable 10/11/18 05:21 Hemoglobin C Crystals Not Reportable 10/11/18 05:21 Schistocytes Not Reportable 10/11/18 05:21 Malaria parasites Not Reportable 10/11/18 05:21 [place] Bodies Not Reportable 10/11/18 05:21 Hem Pathologist Commnt No 10/11/18 05:21 PT 17.1 Sec. (12.2-14.9) H 10/11/18 05:21 INR 1.35 (0.87-1.13) H 10/11/18 05:21 POC ABG pH 7.380 (7.35-7.45) 10/11/18 17:53 POC ABG pCO2 28.2 (35-45) L 10/11/18 17:53 POC ABG pO2 60 (80-105) L 10/11/18 17:53 POC ABG HCO3 16.7 10/11/18 17:53 POC ABG Total CO2 18 10/11/18 17:53 POC ABG O2 Sat 91 10/11/18 17:53 POC ABG Base Excess -8 10/11/18 17:53 VBG pH 7.226 (7.320-7.420) L 10/11/18 05:21 FiO2 2 % 10/11/18 17:53 Sodium 135 mmol/L (137-145) L 10/13/18 05:30 Potassium 2.8 mmol/L (3.6-5.0) L* 10/13/18 05:30 Chloride 103.6 mmol/L (98-107) 10/13/18 05:30 Carbon Dioxide 17 mmol/L (22-30) L 10/13/18 05:30 Anion Gap 17 mmol/L 10/13/18 05:30 BUN 37 mg/dL (9-20) H 10/13/18 05:30 Creatinine 2.0 mg/dL (0.8-1.5) H 10/13/18 05:30 Estimated GFR 41 ml/min 10/13/18 05:30 BUN/Creatinine Ratio 19 % 10/13/18 05:30 Glucose 383 mg/dL (75-100) H 10/13/18 05:30 POC Glucose 413 (70-105) H 10/13/18 06:37 Lactic Acid 1.50 mmol/L (0.7-2.0) 10/12/18 04:20 Calcium 6.6 mg/dL (8.4-10.2) L 10/13/18 05:30 Phosphorus 4.80 mg/dL (2.5-4.5) H 10/11/18 06:51 Magnesium 4.80 mg/dL (1.7-2.3) H 10/12/18 12:55 Total Bilirubin 0.30 mg/dL (0.1-1.2) 10/12/18 04:20 AST 25 units/L (5-40) 10/12/18 04:20 ALT 10 units/L (7-56) 10/12/18 04:20 Alkaline Phosphatase 109 units/L (35-129) 10/12/18 04:20 Total Creatine Kinase 933 units/L (55-170) H 10/11/18 17:58 CK-MB (CK-2) 2.8 ng/mL (0.0-4.0) 10/11/18 17:58 CK-MB (CK-2) Rel Index 0.3 (0-4) 10/11/18 17:58 Troponin T 0.116 ng/mL (0.00-0.029) H* 10/11/18 05:21 Total Protein 5.8 g/dL (6.3-8.2) L 10/12/18 04:20 Albumin 1.8 g/dL (3.9-5) L 10/12/18 04:20 Albumin/Globulin Ratio 0.5 % 10/12/18 04:20 Triglycerides 120 mg/dL (2-149) 10/11/18 05:21 Cholesterol 26 mg/dL (50-199) L 10/11/18 05:21 LDL Cholesterol Direct 4 mg/dL (50-130) L 10/11/18 05:21 HDL Cholesterol 7 mg/dL (40-59) L 10/11/18 05:21 Cholesterol/HDL Ratio 3.71 % 10/11/18 05:21 Urine Color [place] (Yellow) 10/11/18 Unknown Urine Turbidity Turbid (Clear) 10/11/18 Unknown Urine pH 5.0 (5.0-7.0) 10/11/18 Unknown Ur Specific [place] 1.019 (1.003-1.030) 10/11/18 Unknown Urine Protein 100 mg/dl mg/dL (Negative) 10/11/18 Unknown Urine Glucose (UA) Neg mg/dL (Negative) 10/11/18 Unknown Urine Ketones Neg mg/dL (Negative) 10/11/18 Unknown Urine Blood Sm (Negative) 10/11/18 Unknown Urine Nitrite Neg (Negative) 10/11/18 Unknown Urine Bilirubin Neg (Negative) 10/11/18 Unknown Urine Urobilinogen < 2.0 mg/dL (<2.0) 10/11/18 Unknown Ur Leukocyte Esterase Lg (Negative) 10/11/18 Unknown Urine WBC (Auto) > 182.0 /HPF (0.0-6.0) H 10/11/18 Unknown Urine RBC (Auto) 57.0 /HPF (0.0-6.0) 10/11/18 Unknown U Epithel Cells (Auto) 1.0 /HPF (0-13.0) 10/11/18 06:08 Urine Bacteria (Auto) 3+ /HPF (Negative) 10/11/18 Unknown Urine WBC Clumps 3+ /HPF 10/11/18 Unknown Urine Mucus 2+ /HPF 10/11/18 Unknown Random Vancomycin 5.7 ug/mL (0-40.0) 10/13/18 05:30 Blood Type A POSITIVE 10/11/18 09:05 Antibody Screen Negative 10/11/18 09:05 Crossmatch See Detail 10/11/18 09:05 Nutrition/Malnutrition Assess - Dietary Evaluation Nutrition/Malnutrition Findings: Nutrition Notes Start: 10/12/18 12:55 Freq: Status: Active Protocol: Document 10/12/18 12:55 TW (Rec: 10/12/18 13:36 TW [email or web address]) Co-Sign 10/12/18 12:55 OL Nutrition Notes Need for Assessment generated from: MD Order Initial or Follow up Assessment Current Diagnosis Acute Kidney Injury Decubitus(Pressure Ulcer) Diabetes Hypertension Other Pertinent Diagnosis Sepsis, Stg. 4 decubitus, hyperglycemia, s/p colostomy Current Diet NPO Labs/Tests K: 2.7 BUN: 51 Cr: 3.6 Pertinent Medications Norepinephrine Height 6 ft Weight 78.018 kg [place] Body Weight (lbs) 178.0 BMI 23.3 Weight Status Appropriate Subjective/Other Information consult for malnutrition. Waiting for dysphagia screen results in order to provide diet to pt. Burn Absent Trauma Absent Current % PO Negligible #1 Nutrition Diagnosis Inadequate oral intake Etiology Possible dysphagia As Evidenced by Signs and Symptoms NPO status Is patient on ventilator? No Is Patient Ambulatory and/or Out of Bed No REE-([facility]-confined to bed) 8.640 Calculation Used for Recommendations [facility] Additional Notes Pro: 94-156g/day (1.2-2 g/kg BW) Fluid: 1 ml/kcal Nutrition Intervention Change Diet Order: Advance to consistent CHO diet if medically feasible Nutrition Support: TF consult if pt. 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
[2018-10-13] MEDS: PROTONIX 80 MG in NACL 0.9% 100 ML IV SCH (11:00)
[2018-10-13] MEDS: SODIUM CHLORIDE FLUSH SYRINGE 10 ML IV SCH ×2 (11:11→22:39)
[2018-10-13] MEDS ORDERED: HumuLIN R SUB-Q ONE (12:00)
--- NOTE | 2018-10-13 13:08 | Progress Note ---
Assessment and Plan Cultures: 10/11/2018 blood culture: Beta Strep group C 2 of 4 bottles 10/11/2018 urine culture: mixed growth A/P: 58-year-old male with diabetes mellitus, recent admission in August 2018 for an anal abscess, colostomy was sent to the emergency room from an SNF earlier this morning after he was noted to have a fever with shaking chills. Admitted with: #1 Severe sepsis with septic shock: shock and fever resolved, leukocytosis better. Source could be either Strep bacteremia +/- infected and necrotic sacral wound +/- UTI. #2 Strep group C bacteremia: likely source infected and necrotic sacral wound. 10/11/2018 blood culture: Beta Strep group C 2 of 4 bottles #3 Catheter associated urinary tract infection: POA. UA showing significant pyuria. Suarez exchanged. Urine culture grew 10-100K mixed growth #4 Sacral decubitus ulcer, infected, stage 4: recent anal abscess status post debridement at [facility] in August 2018. Per surgery does not believe source of bacteremia is the infected decubitus. #5 Acute kidney injury/acute renal failure: Present on admission. Renally dose antimicrobials. Improving. #6 Elevated troponins: Cardiology on board. #7 Acute encephalopathy: probably from sepsis. Improving #8 Acute anemia: GI consulted. Getting transfusion. Recs: Repeat blood culture Obtain TTE CT pelvis eval source of bacteremia ? abscess Continue IV cefepime and Flagyl for now Stop vancomycin General surgery recommending wound VAC and off-loading Request records from [facility] regarding anal abscess and recent hospitalization - pending Dr Camejo is covering the weekend MD [facility] C: [phone] O: [phone] F: [phone] Subjective Date of service: 10/13/18 Principal diagnosis: sepsis Interval history: Patient is alert, following commands, no fever, on PPI and cardizem gtt. ROS: no fever, no chills, denies N/V/D, rash Objective - Exam Narrative Exam: Constitutional: Alert, cooperative. No acute distress Head, Ears, Nose: Normocephalic, atraumatic. External ears, nose normal Eyes: Conjunctivae/corneas clear. No icterus. No ptosis. Neck: Supple, no meningeal signs Oral: dentition poor, no thrush Cardiovascular: tachycardic Respiratory: Good air entry, clear to auscultation bilaterally GI: Soft, bowel sounds normal. +ostomy bag. +suarez Musculoskeletal: No pedal edema, no cyanosis. Large sacral wound, superior portion with foul smelling necrotic/devitalized tissue 0x7.0x5.0cm Moderate serous sanguineous drainage Skin: No rash. Hem/Lymphatic: No palpable cervical or supraclavicular nodes. No lymphangitis Psych: Mood ok. Affect flat Neurological: Awake, alert, but not oriented. Line right femoral TLC - Constitutional Vitals: Vital Signs Temp Pulse Resp BP Pulse Ox 98 F 113 H 28 H 109/70 91 10/13/18 08:00 10/13/18 11:30 10/13/18 11:30 10/13/18 11:30 10/13/18 11:30 Temperature -Last 24 Hours Temperature 98 F Temperature 98.4 F Temperature 98.6 F Temperature 98.6 F Temperature 93 F Temperature 98.6 F Temperature 98.6 F Temperature 98.8 F Temperature 98.6 F Temperature 98.6 F Temperature 98.6 F Temperature 98.4 F Temperature 98.4 F Temperature 99.5 F Temperature 98.5 F Temperature 98.5 F Temperature 98.3 F Temperature 97.7 F Temperature 98.8 F Temperature 98.8 F Temperature 98.8 F - Labs CBC & Chem 7: 10/13/18 05:30 10/13/18 11:15 Labs: Abnormal lab results 10/11/18 10/12/18 10/12/18 Range/Units 09:05 12:55 12:55 WBC (4.5-11.0) K/mm3 RBC (3.65-5.03) M/mm3 Hgb 7.1 L (11.8-15.2) gm/dl Hct 20.6 L (35.5-45.6) % RDW (13.2-15.2) % Sodium 136 L (137-145) mmol/L Potassium 2.9 L* (3.6-5.0) mmol/L Carbon Dioxide 16 L (22-30) mmol/L BUN 48 H (9-20) mg/dL Creatinine 3.1 H (0.8-1.5) mg/dL Glucose 258 H (75-100) mg/dL POC Glucose (70-105) Calcium 6.3 L (8.4-10.2) mg/dL Magnesium (1.7-2.3) mg/dL Crossmatch See Detail 10/12/18 10/12/18 10/12/18 Range/Units 12:55 17:49 19:23 WBC (4.5-11.0) K/mm3 RBC (3.65-5.03) M/mm3 Hgb 7.7 L (11.8-15.2) gm/dl Hct 22.9 L (35.5-45.6) % RDW (13.2-15.2) % Sodium (137-145) mmol/L Potassium (3.6-5.0) mmol/L Carbon Dioxide (22-30) mmol/L BUN (9-20) mg/dL Creatinine (0.8-1.5) mg/dL Glucose (75-100) mg/dL POC Glucose 344 H (70-105) Calcium (8.4-10.2) mg/dL Magnesium 4.80 H (1.7-2.3) mg/dL Crossmatch 10/12/18 10/13/18 10/13/18 Range/Units 22:21 00:15 05:28 WBC (4.5-11.0) K/mm3 RBC (3.65-5.03) M/mm3 Hgb (11.8-15.2) gm/dl Hct (35.5-45.6) % RDW (13.2-15.2) % Sodium (137-145) mmol/L Potassium (3.6-5.0) mmol/L Carbon Dioxide (22-30) mmol/L BUN (9-20) mg/dL Creatinine (0.8-1.5) mg/dL Glucose (75-100) mg/dL POC Glucose 367 H 392 H 356 H (70-105) Calcium (8.4-10.2) mg/dL Magnesium (1.7-2.3) mg/dL Crossmatch 10/13/18 10/13/18 10/13/18 Range/Units 05:30 05:30 06:37 WBC 19.2 H (4.5-11.0) K/mm3 RBC 2.67 L (3.65-5.03) M/mm3 Hgb 7.9 L (11.8-15.2) gm/dl Hct 23.2 L (35.5-45.6) % RDW 16.4 H (13.2-15.2) % Sodium 135 L (137-145) mmol/L Potassium 2.8 L* (3.6-5.0) mmol/L Carbon Dioxide 17 L (22-30) mmol/L BUN 37 H (9-20) mg/dL Creatinine 2.0 H (0.8-1.5) mg/dL Glucose 383 H (75-100) mg/dL POC Glucose 413 H (70-105) Calcium 6.6 L (8.4-10.2) mg/dL Magnesium (1.7-2.3) mg/dL Crossmatch 10/13/18 10/13/18 Range/Units 11:15 12:46 WBC (4.5-11.0) K/mm3 RBC (3.65-5.03) M/mm3 Hgb (11.8-15.2) gm/dl Hct (35.5-45.6) % RDW (13.2-15.2) % Sodium (137-145) mmol/L Potassium 3.2 L (3.6-5.0) mmol/L Carbon Dioxide (22-30) mmol/L BUN (9-20) mg/dL Creatinine (0.8-1.5) mg/dL Glucose (75-100) mg/dL POC Glucose 220 H (70-105) Calcium (8.4-10.2) mg/dL Magnesium (1.7-2.3) mg/dL Crossmatch
--- NOTE | 2018-10-13 13:34 | Progress Note ---
Assessment and Plan Acute Toxic metabolic encephalopathy Septic Shock Severe Sepsis DKA MALCOLM secondary to vasomotor nephropathy Metabolic acidosis Colostomy Unstagable scaral pressure ulcer POA Afib with RVR Troponemia- Type 2 NSTEMI Anemia of chronic disease Hypokalemia Severe Protein calorie malnutrition - awaiting EGD - begin p.o. cardizem once NPO status discontinued - wean off IV cardizem - Heparin drip held re: Anemia not appropriately responsive to transfusions - vasopressin gtt as needed for target MAP > 65 mmHg - Surgical evaluation ongoing re: sacral decubitus - continue Sepsis protocol - continue cefepime empirically; follow cultures & clinically for de-escalation - transition to oral cardizem per steam tunnel feeder - G.I. consult placed for anemia evaluation - PT/OT consult - follow Renal ultrasound - PICC team for Access and D/C Right femoral Line. - continue fall precautions - Continue GI & VTE prophylaxis - continue mobility protocol for pressure ulcer prophylaxis - continue other care per attending / other consultants ...re-evaluate in am & prn FULL CODE The high probability of a clinically significant, sudden or life threatening deterioration of the [CARDIAC, RENAL, ] system(s) required my full and direct attention, intervention and personal management. The aggregate critical care time was [32] minutes. This time is in addition to time spent performing reported procedures but includes the following: [X] Data Review and interpretation [X] Patient assessment and monitoring of vital signs [X] Documentation [X] Medication orders and management Subjective Date of service: 10/13/18 Principal diagnosis: Acute Toxic metabolic encephalopathy; Septic Shock; Severe Sepsis; DKA Interval history: Patient is seen today for: Acute Toxic metabolic encephalopathy; Septic Shock; Severe Sepsis; DKA Seen and examined at bedside; 24hour events reviewed; nursing and respiratory care staff consulted; no adverse overnight events reported to me; resting peacefully in bed; tentatively for EGD and NPO now; off levophed but remains on cardizem drip; No N/V/F/C; denies chest pains or palpitations Objective Vital Signs - 12hr 10/13/18 10/13/18 10/13/18 01:40 01:50 02:00 Temperature 98.6 F Pulse Rate 102 H 100 H 102 H Pulse Rate [ Anterior Bilateral Throughout] Pulse Rate [ 96 H From Monitor] Respiratory 28 H 32 H 16 Rate Respiratory Rate [Anterior Bilateral Throughout] Blood Pressure 105/71 101/68 106/70 O2 Sat by Pulse 93 96 95 Oximetry 10/13/18 10/13/18 10/13/18 02:10 02:20 02:30 Temperature Pulse Rate 100 H 98 H 98 H Pulse Rate [ Anterior Bilateral Throughout] Pulse Rate [ From Monitor] Respiratory 25 H 24 30 H Rate Respiratory Rate [Anterior Bilateral Throughout] Blood Pressure 106/70 103/69 102/68 O2 Sat by Pulse 97 97 93 Oximetry 10/13/18 10/13/18 10/13/18 02:40 02:50 03:00 Temperature Pulse Rate 95 H 97 H 95 H Pulse Rate [ Anterior Bilateral Throughout] Pulse Rate [ From Monitor] Respiratory 23 26 H 25 H Rate Respiratory Rate [Anterior Bilateral Throughout] Blood Pressure 102/68 108/72 107/67 O2 Sat by Pulse 99 97 96 Oximetry 10/13/18 10/13/18 10/13/18 03:05 03:10 03:20 Temperature Pulse Rate 95 H 96 H 98 H Pulse Rate [ Anterior Bilateral Throughout] Pulse Rate [ From Monitor] Respiratory 25 H 24 Rate Respiratory Rate [Anterior Bilateral Throughout] Blood Pressure 107/67 110/71 O2 Sat by Pulse 97 97 Oximetry 10/13/18 10/13/18 10/13/18 03:30 03:40 03:50 Temperature Pulse Rate 96 H 101 H 102 H Pulse Rate [ Anterior Bilateral Throughout] Pulse Rate [ From Monitor] Respiratory 21 26 H 18 Rate Respiratory Rate [Anterior Bilateral Throughout] Blood Pressure 111/69 111/69 115/77 O2 Sat by Pulse 94 97 93 Oximetry 10/13/18 10/13/18 10/13/18 04:00 04:10 04:20 Temperature 98.4 F Pulse Rate 100 H 93 H 95 H Pulse Rate [ Anterior Bilateral Throughout] Pulse Rate [ From Monitor] Respiratory 15 21 16 Rate Respiratory Rate [Anterior Bilateral Throughout] Blood Pressure 115/77 99/60 O2 Sat by Pulse 98 96 99 Oximetry 10/13/18 10/13/18 10/13/18 04:30 04:40 04:50 Temperature Pulse Rate 101 H 102 H 99 H Pulse Rate [ Anterior Bilateral Throughout] Pulse Rate [ From Monitor] Respiratory 28 H 30 H 22 Rate Respiratory Rate [Anterior Bilateral Throughout] Blood Pressure 106/70 106/70 106/70 O2 Sat by Pulse 86 98 98 Oximetry 10/13/18 10/13/18 10/13/18 05:00 05:10 05:15 Temperature Pulse Rate 96 H 100 H 95 H Pulse Rate [ Anterior Bilateral Throughout] Pulse Rate [ 96 H From Monitor] Respiratory 24 28 H 16 Rate Respiratory Rate [Anterior Bilateral Throughout] Blood Pressure 103/67 103/67 O2 Sat by Pulse 95 94 95 Oximetry 10/13/18 10/13/18 10/13/18 05:20 05:30 05:40 Temperature Pulse Rate 97 H 98 H 95 H Pulse Rate [ Anterior Bilateral Throughout] Pulse Rate [ From Monitor] Respiratory 22 25 H 23 Rate Respiratory Rate [Anterior Bilateral Throughout] Blood Pressure 108/71 106/68 106/68 O2 Sat by Pulse 97 97 95 Oximetry 10/13/18 10/13/18 10/13/18 05:50 06:00 06:10 Temperature Pulse Rate 98 H 95 H 98 H Pulse Rate [ Anterior Bilateral Throughout] Pulse Rate [ From Monitor] Respiratory 28 H 20 24 Rate Respiratory Rate [Anterior Bilateral Throughout] Blood Pressure 101/67 100/62 100/62 O2 Sat by Pulse 94 98 97 Oximetry 10/13/18 10/13/18 10/13/18 06:20 06:30 06:40 Temperature Pulse Rate 97 H 93 H 97 H Pulse Rate [ Anterior Bilateral Throughout] Pulse Rate [ From Monitor] Respiratory 22 19 23 Rate Respiratory Rate [Anterior Bilateral Throughout] Blood Pressure 117/69 94/62 94/62 O2 Sat by Pulse 96 95 98 Oximetry 10/13/18 10/13/18 10/13/18 06:50 07:00 07:10 Temperature Pulse Rate 96 H 96 H 96 H Pulse Rate [ Anterior Bilateral Throughout] Pulse Rate [ From Monitor] Respiratory 28 H 27 H 24 Rate Respiratory Rate [Anterior Bilateral Throughout] Blood Pressure 101/65 111/67 111/67 O2 Sat by Pulse 96 94 96 Oximetry 10/13/18 10/13/18 10/13/18 07:20 07:30 07:40 Temperature Pulse Rate 97 H 94 H 104 H Pulse Rate [ Anterior Bilateral Throughout] Pulse Rate [ From Monitor] Respiratory 27 H 24 19 Rate Respiratory Rate [Anterior Bilateral Throughout] Blood Pressure 102/65 101/66 101/66 O2 Sat by Pulse 96 95 96 Oximetry 10/13/18 10/13/18 10/13/18 07:50 08:00 08:10 Temperature 98 F Pulse Rate 100 H 98 H 98 H Pulse Rate [ Anterior Bilateral Throughout] Pulse Rate [ From Monitor] Respiratory 25 H 24 24 Rate Respiratory Rate [Anterior Bilateral Throughout] Blood Pressure 109/72 107/67 107/67 O2 Sat by Pulse 97 98 98 Oximetry 10/13/18 10/13/18 10/13/18 08:20 08:25 08:29 Temperature Pulse Rate 99 H 102 H Pulse Rate [ 100 H Anterior Bilateral Throughout] Pulse Rate [ From Monitor] Respiratory 24 Rate Respiratory 22 Rate [Anterior Bilateral Throughout] Blood Pressure 112/72 112/72 O2 Sat by Pulse 97 Oximetry 10/13/18 10/13/18 10/13/18 08:30 08:31 08:40 Temperature Pulse Rate 100 H 102 H Pulse Rate [ 103 H Anterior Bilateral Throughout] Pulse Rate [ From Monitor] Respiratory 24 23 Rate Respiratory 20 Rate [Anterior Bilateral Throughout] Blood Pressure 121/76 107/68 O2 Sat by Pulse 99 99 99 Oximetry 10/13/18 10/13/18 10/13/18 08:50 09:00 09:10 Temperature Pulse Rate 105 H 108 H 112 H Pulse Rate [ Anterior Bilateral Throughout] Pulse Rate [ From Monitor] Respiratory 27 H 26 H 16 Rate Respiratory Rate [Anterior Bilateral Throughout] Blood Pressure 111/70 111/71 111/71 O2 Sat by Pulse 98 95 94 Oximetry 10/13/18 10/13/18 10/13/18 09:20 09:30 09:40 Temperature Pulse Rate 112 H 113 H 113 H Pulse Rate [ Anterior Bilateral Throughout] Pulse Rate [ From Monitor] Respiratory 24 24 28 H Rate Respiratory Rate [Anterior Bilateral Throughout] Blood Pressure 114/70 109/73 109/73 O2 Sat by Pulse 96 89 91 Oximetry 10/13/18 10/13/18 10/13/18 09:50 10:00 10:10 Temperature Pulse Rate 115 H 112 H 113 H Pulse Rate [ Anterior Bilateral Throughout] Pulse Rate [ From Monitor] Respiratory 28 H 28 H 27 H Rate Respiratory Rate [Anterior Bilateral Throughout] Blood Pressure 105/70 114/73 114/73 O2 Sat by Pulse 94 92 93 Oximetry 10/13/18 10/13/18 10/13/18 10:20 10:30 10:40 Temperature Pulse Rate 114 H 115 H 116 H Pulse Rate [ Anterior Bilateral Throughout] Pulse Rate [ From Monitor] Respiratory 20 26 H 26 H Rate Respiratory Rate [Anterior Bilateral Throughout] Blood Pressure 112/71 108/70 108/70 O2 Sat by Pulse 96 95 94 Oximetry 10/13/18 10/13/18 10/13/18 10:50 11:00 11:10 Temperature Pulse Rate 116 H 115 H 115 H Pulse Rate [ Anterior Bilateral Throughout] Pulse Rate [ From Monitor] Respiratory 30 H 28 H 23 Rate Respiratory Rate [Anterior Bilateral Throughout] Blood Pressure 118/68 112/71 108/70 O2 Sat by Pulse 94 96 93 Oximetry 10/13/18 10/13/18 11:20 11:30 Temperature Pulse Rate 113 H 113 H Pulse Rate [ Anterior Bilateral Throughout] Pulse Rate [ From Monitor] Respiratory 27 H 28 H Rate Respiratory Rate [Anterior Bilateral Throughout] Blood Pressure 113/69 109/70 O2 Sat by Pulse 92 91 Oximetry Constitutional: alert, appears uncomfortable, other (elderly looking AAM, normocephalic and atraumatic with mildly increased resp effort at rest) Eyes: non-icteric ENT: oropharynx dry, other (Mallampati 2) Neck: supple, no lymphadenopathy, no JVD Effort: mildly labored Ascultation: Bilateral: clear Percussion: Bilateral: not dull Cardiovascular: irregular rhythm, other (No R/M) Gastrointestinal: hypoactive bowel sounds, soft, non-tender, non-distended Integumentary: rash, decubitus ulcer (sacral) Extremities: no cyanosis, no edema, pulses normal, no ischemia or petechiae Neurologic: normal mental status, non-focal exam (grossly), pupils equal and round, other (weak lower extremities) Psychiatric: mood appropriate, affect normal CBC and BMP: 10/14/18 04:36 10/14/18 09:45 ABG, PT/INR, D-dimer: ABG POC ABG pH 7.380 (7.35-7.45) 10/11/18 17:53 POC ABG pCO2 28.2 (35-45) L 10/11/18 17:53 POC ABG pO2 60 (80-105) L 10/11/18 17:53 POC ABG HCO3 16.7 10/11/18 17:53 POC ABG Total CO2 18 10/11/18 17:53 POC ABG O2 Sat 91 10/11/18 17:53 PT/INR, D-dimer PT 17.1 Sec. (12.2-14.9) H 10/11/18 05:21 INR 1.35 (0.87-1.13) H 10/11/18 05:21 Abnormal lab findings: Abnormal Labs 10/11/18 10/11/18 10/11/18 05:21 05:21 05:21 WBC 22.3 H RBC 2.62 L Hgb 8.0 L Hct 24.5 L MCHC RDW 16.0 H Seg Neuts % (Manual) 90.0 H Lymphocytes % (Manual) 4.0 L Seg Neutrophils # Man 20.1 H Lymphocytes # (Manual) 0.9 L PT 17.1 H INR 1.35 H POC ABG pCO2 POC ABG pO2 VBG pH Sodium 133 L Potassium 2.8 L* Chloride 94.5 L Carbon Dioxide 11 L BUN 69 H Creatinine 5.0 H Glucose 362 H POC Glucose Lactic Acid Calcium 7.4 L Phosphorus Magnesium Total Creatine Kinase Troponin T 0.116 H* Total Protein 6.2 L Albumin 2.1 L Cholesterol 26 L LDL Cholesterol Direct 4 L HDL Cholesterol 7 L Urine WBC (Auto) Crossmatch 10/11/18 10/11/18 10/11/18 05:21 05:21 05:21 WBC RBC Hgb Hct MCHC RDW Seg Neuts % (Manual) Lymphocytes % (Manual) Seg Neutrophils # Man Lymphocytes # (Manual) PT INR POC ABG pCO2 POC ABG pO2 VBG pH 7.226 L Sodium Potassium Chloride Carbon Dioxide BUN Creatinine Glucose POC Glucose Lactic Acid 7.40 H* Calcium Phosphorus Magnesium Total Creatine Kinase 1094 H Troponin T Total Protein Albumin Cholesterol LDL Cholesterol Direct HDL Cholesterol Urine WBC (Auto) Crossmatch 10/11/18 10/11/18 10/11/18 06:08 06:51 06:51 WBC RBC Hgb Hct MCHC RDW Seg Neuts % (Manual) Lymphocytes % (Manual) Seg Neutrophils # Man Lymphocytes # (Manual) PT INR POC ABG pCO2 POC ABG pO2 VBG pH Sodium 132 L Potassium 3.1 L Chloride 94.3 L Carbon Dioxide 10 L BUN 68 H Creatinine 5.8 H Glucose 402 H POC Glucose Lactic Acid 7.80 H* Calcium 7.8 L Phosphorus 4.80 H Magnesium 0.90 L* Total Creatine Kinase Troponin T Total Protein Albumin Cholesterol LDL Cholesterol Direct HDL Cholesterol Urine WBC (Auto) > 182.0 H Crossmatch 10/11/18 10/11/1810/11/19 08:56 09:05 10:23 WBC RBC Hgb Hct MCHC RDW Seg Neuts % (Manual) Lymphocytes % (Manual) Seg Neutrophils # Man Lymphocytes # (Manual) PT INR POC ABG pCO2 POC ABG pO2 VBG pH Sodium Potassium Chloride Carbon Dioxide BUN Creatinine Glucose POC Glucose 367 H 305 H Lactic Acid Calcium Phosphorus Magnesium Total Creatine Kinase Troponin T Total Protein Albumin Cholesterol LDL Cholesterol Direct HDL Cholesterol Urine WBC (Auto) Crossmatch See Detail 10/11/18 10/11/18 10/11/18 11:12 12:17 12:18 WBC RBC Hgb Hct MCHC RDW Seg Neuts % (Manual) Lymphocytes % (Manual) Seg Neutrophils # Man Lymphocytes # (Manual) PT INR POC ABG pCO2 POC ABG pO2 VBG pH Sodium 135 L Potassium 2.8 L* Chloride 97.9 L Carbon Dioxide 14 L BUN 67 H Creatinine 6.0 H Glucose 246 H POC Glucose 299 H 261 H Lactic Acid Calcium 7.5 L Phosphorus Magnesium Total Creatine Kinase 1110 H Troponin T Total Protein Albumin Cholesterol LDL Cholesterol Direct HDL Cholesterol Urine WBC (Auto) Crossmatch 10/11/18 10/11/18 10/11/18 13:05 14:13 14:34 WBC RBC Hgb Hct MCHC RDW Seg Neuts % (Manual) Lymphocytes % (Manual) Seg Neutrophils # Man Lymphocytes # (Manual) PT INR POC ABG pCO2 POC ABG pO2 VBG pH Sodium 135 L Potassium 2.7 L* Chloride Carbon Dioxide 18 L BUN 68 H Creatinine 5.0 H Glucose 191 H POC Glucose 251 H 233 H Lactic Acid Calcium 7.1 L Phosphorus Magnesium Total Creatine Kinase Troponin T Total Protein Albumin Cholesterol LDL Cholesterol Direct HDL Cholesterol Urine WBC (Auto) Crossmatch 10/11/18 10/11/18 10/11/18 15:08 16:00 17:20 WBC RBC Hgb Hct MCHC RDW Seg Neuts % (Manual) Lymphocytes % (Manual) Seg Neutrophils # Man Lymphocytes # (Manual) PT INR POC ABG pCO2 POC ABG pO2 VBG pH Sodium Potassium Chloride Carbon Dioxide BUN Creatinine Glucose POC Glucose 213 H 224 H 187 H Lactic Acid Calcium Phosphorus Magnesium Total Creatine Kinase Troponin T Total Protein Albumin Cholesterol LDL Cholesterol Direct HDL Cholesterol Urine WBC (Auto) Crossmatch 10/11/18 10/11/18 10/11/18 17:53 17:58 18:12 WBC RBC Hgb Hct MCHC RDW Seg Neuts % (Manual) Lymphocytes % (Manual) Seg Neutrophils # Man Lymphocytes # (Manual) PT INR POC ABG pCO2 28.2 L POC ABG pO2 60 L VBG pH Sodium Potassium Chloride Carbon Dioxide BUN Creatinine Glucose POC Glucose 189 H Lactic Acid Calcium Phosphorus Magnesium Total Creatine Kinase 933 H Troponin T Total Protein Albumin Cholesterol LDL Cholesterol Direct HDL Cholesterol Urine WBC (Auto) Crossmatch 10/11/18 10/11/18 10/11/18 18:58 20:16 21:10 WBC RBC Hgb Hct MCHC RDW Seg Neuts % (Manual) Lymphocytes % (Manual) Seg Neutrophils # Man Lymphocytes # (Manual) PT INR POC ABG pCO2 POC ABG pO2 VBG pH Sodium Potassium Chloride Carbon Dioxide BUN Creatinine Glucose POC Glucose 192 H 179 H 160 H Lactic Acid Calcium Phosphorus Magnesium Total Creatine Kinase Troponin T Total Protein Albumin Cholesterol LDL Cholesterol Direct HDL Cholesterol Urine WBC (Auto) Crossmatch 10/11/18 10/11/18 10/11/18 22:14 22:42 23:09 WBC RBC Hgb Hct MCHC RDW Seg Neuts % (Manual) Lymphocytes % (Manual) Seg Neutrophils # Man Lymphocytes # (Manual) PT INR POC ABG pCO2 POC ABG pO2 VBG pH Sodium 136 L Potassium 2.9 L* Chloride Carbon Dioxide 17 L BUN 61 H Creatinine 4.0 H Glucose 122 H POC Glucose 145 H 129 H Lactic Acid Calcium 6.6 L Phosphorus Magnesium Total Creatine Kinase Troponin T Total Protein Albumin Cholesterol LDL Cholesterol Direct HDL Cholesterol Urine WBC (Auto) Crossmatch 10/11/18 10/11/18 10/11/18 Unknown Unknown Unknown WBC RBC Hgb Hct MCHC RDW Seg Neuts % (Manual) Lymphocytes % (Manual) Seg Neutrophils # Man Lymphocytes # (Manual) PT INR POC ABG pCO2 POC ABG pO2 VBG pH Sodium 133 L Potassium 3.0 L Chloride 93.7 L Carbon Dioxide 9 L* BUN 67 H Creatinine 5.9 H Glucose 406 H POC Glucose Lactic Acid 8.50 H* Calcium 7.6 L Phosphorus Magnesium Total Creatine Kinase Troponin T Total Protein Albumin Cholesterol LDL Cholesterol Direct HDL Cholesterol Urine WBC (Auto) > 182.0 H Crossmatch 10/12/18 10/12/18 10/12/18 00:18 01:42 02:03 WBC RBC Hgb Hct MCHC RDW Seg Neuts % (Manual) Lymphocytes % (Manual) Seg Neutrophils # Man Lymphocytes # (Manual) PT INR POC ABG pCO2 POC ABG pO2 VBG pH Sodium Potassium Chloride Carbon Dioxide BUN Creatinine Glucose POC Glucose 113 H 51 L 116 H Lactic Acid Calcium Phosphorus Magnesium Total Creatine Kinase Troponin T Total Protein Albumin Cholesterol LDL Cholesterol Direct HDL Cholesterol Urine WBC (Auto) Crossmatch 10/12/18 10/12/18 10/12/18 03:09 04:20 04:20 WBC 26.8 H RBC 2.22 L Hgb 6.7 L Hct 19.4 L* MCHC 35 H RDW 15.8 H Seg Neuts % (Manual) Lymphocytes % (Manual) Seg Neutrophils # Man Lymphocytes # (Manual) PT INR POC ABG pCO2 POC ABG pO2 VBG pH Sodium Potassium 2.6 L* Chloride Carbon Dioxide 20 L BUN 56 H Creatinine 4.0 H Glucose 134 H POC Glucose 129 H Lactic Acid Calcium 6.4 L Phosphorus Magnesium 1.30 L Total Creatine Kinase Troponin T Total Protein 5.8 L Albumin 1.8 L Cholesterol LDL Cholesterol Direct HDL Cholesterol Urine WBC (Auto) Crossmatch 10/12/18 10/12/18 10/12/18 04:22 05:25 06:25 WBC RBC Hgb Hct MCHC RDW Seg Neuts % (Manual) Lymphocytes % (Manual) Seg Neutrophils # Man Lymphocytes # (Manual) PT INR POC ABG pCO2 POC ABG pO2 VBG pH Sodium Potassium 2.7 L* Chloride Carbon Dioxide 19 L BUN 51 H Creatinine 3.6 H Glucose 113 H POC Glucose 186 H 131 H Lactic Acid Calcium 6.4 L Phosphorus Magnesium Total Creatine Kinase Troponin T Total Protein Albumin Cholesterol LDL Cholesterol Direct HDL Cholesterol Urine WBC (Auto) Crossmatch 10/12/18 10/12/18 10/12/18 07:34 08:28 09:29 WBC RBC Hgb Hct MCHC RDW Seg Neuts % (Manual) Lymphocytes % (Manual) Seg Neutrophils # Man Lymphocytes # (Manual) PT INR POC ABG pCO2 POC ABG pO2 VBG pH Sodium Potassium Chloride Carbon Dioxide BUN Creatinine Glucose POC Glucose 120 H 110 H 140 H Lactic Acid Calcium Phosphorus Magnesium Total Creatine Kinase Troponin T Total Protein Albumin Cholesterol LDL Cholesterol Direct HDL Cholesterol Urine WBC (Auto) Crossmatch 10/12/18 10/12/18 10/12/18 11:55 12:55 12:55 WBC RBC Hgb 7.1 L Hct 20.6 L MCHC RDW Seg Neuts % (Manual) Lymphocytes % (Manual) Seg Neutrophils # Man Lymphocytes # (Manual) PT INR POC ABG pCO2 POC ABG pO2 VBG pH Sodium 136 L Potassium 2.9 L* Chloride Carbon Dioxide 16 L BUN 48 H Creatinine 3.1 H Glucose 258 H POC Glucose 219 H Lactic Acid Calcium 6.3 L Phosphorus Magnesium Total Creatine Kinase Troponin T Total Protein Albumin Cholesterol LDL Cholesterol Direct HDL Cholesterol Urine WBC (Auto) Crossmatch 10/12/18 10/12/18 10/12/18 12:55 17:49 19:23 WBC RBC Hgb 7.7 L Hct 22.9 L MCHC RDW Seg Neuts % (Manual) Lymphocytes % (Manual) Seg Neutrophils # Man Lymphocytes # (Manual) PT INR POC ABG pCO2 POC ABG pO2 VBG pH Sodium Potassium Chloride Carbon Dioxide BUN Creatinine Glucose POC Glucose 344 H Lactic Acid Calcium Phosphorus Magnesium 4.80 H Total Creatine Kinase Troponin T Total Protein Albumin Cholesterol LDL Cholesterol Direct HDL Cholesterol Urine WBC (Auto) Crossmatch 10/12/18 10/13/18 10/13/18 22:21 00:15 05:28 WBC RBC Hgb Hct MCHC RDW Seg Neuts % (Manual) Lymphocytes % (Manual) Seg Neutrophils # Man Lymphocytes # (Manual) PT INR POC ABG pCO2 POC ABG pO2 VBG pH Sodium Potassium Chloride Carbon Dioxide BUN Creatinine Glucose POC Glucose 367 H 392 H 356 H Lactic Acid Calcium Phosphorus Magnesium Total Creatine Kinase Troponin T Total Protein Albumin Cholesterol LDL Cholesterol Direct HDL Cholesterol Urine WBC (Auto) Crossmatch 10/13/18 10/13/18 10/13/18 05:30 05:30 06:37 WBC 19.2 H RBC 2.67 L Hgb 7.9 L Hct 23.2 L MCHC RDW 16.4 H Seg Neuts % (Manual) Lymphocytes % (Manual) Seg Neutrophils # Man Lymphocytes # (Manual) PT INR POC ABG pCO2 POC ABG pO2 VBG pH Sodium 135 L Potassium 2.8 L* Chloride Carbon Dioxide 17 L BUN 37 H Creatinine 2.0 H Glucose 383 H POC Glucose 413 H Lactic Acid Calcium 6.6 L Phosphorus Magnesium Total Creatine Kinase Troponin T Total Protein Albumin Cholesterol LDL Cholesterol Direct HDL Cholesterol Urine WBC (Auto) Crossmatch 10/13/18 10/13/18 11:15 12:46 WBC RBC Hgb Hct MCHC RDW Seg Neuts % (Manual) Lymphocytes % (Manual) Seg Neutrophils # Man Lymphocytes # (Manual) PT INR POC ABG pCO2 POC ABG pO2 VBG pH Sodium Potassium 3.2 L Chloride Carbon Dioxide BUN Creatinine Glucose POC Glucose 220 H Lactic Acid Calcium Phosphorus Magnesium Total Creatine Kinase Troponin T Total Protein Albumin Cholesterol LDL Cholesterol Direct HDL Cholesterol Urine WBC (Auto) Crossmatch Allied health notes reviewed: nursing
[2018-10-13] MEDS ORDERED: K-DUR PO ONE (14:00)
[2018-10-13] MEDS ORDERED: WATER FOR IRRIG STERILE IR ONE (15:03)
[2018-10-13] MEDS ORDERED: DIPRIVAN 10 MG/ML IV ONE ×2 (15:26→15:29)
[2018-10-13] MEDS ORDERED: NACL 0.9% 1000 ML 1,000 ML ONE (15:31)
[2018-10-13] MEDS ORDERED: AMIDATE IV ONE (15:38)
[2018-10-13] MEDS ORDERED: XYLOCAINE 2% INFILTRATI ONE (15:41)
--- NOTE | 2018-10-13 16:11 | Operative Report ---
Operative Report Operative Report: Esophagogastroduodenoscopy Procedure Note Date of procedure: 10/13/2018 Endoscopist: Ez Martinez Pre-op diagnosis: Melena, GI bleed Post-op diagnosis: Esophagitis, small nodule in gastric cardia Anesthesia: MAC Complications: No immediate complications Estimated blood loss: None Procedure: After consent was obtained, the patient was placed in the left lateral decubitus position. The fujinon endoscope was inserted into the patient's mouth under direct vision, and advanced into the 2nd portion of the duodenum without difficulty. The patient tolerated the procedure well. The views of the mucosa were good. Patient's vital signs were monitored continuously throughout the procedure. Findings: There was non-severe esophagitis in the mid to lower third of the esophagus. There was an ~3 mm nodule in the gastric cardia. Otherwise, the stomach appeared normal. The duodenum appeared normal with bile seen throughout the duodenum Impression: 1. Mild esophagitis 2. Gastric nodule No high risk bleeding lesions or signs of bleeding. Recommendations: -PPI po daily -repeat EGD as outpatient in 1-2 months to biopsy gastric nodule -follow-up in GI clinic in 1 month -further management of other acute medical issues per primary team Will sign off, please call as needed or with questions.
--- NOTE | 2018-10-13 17:44 | Cat Scan Report ---
FINAL REPORT EXAM: CT ABDOMEN PELVIS WO CON HISTORY: pt with septic shock TECHNIQUE: CT examination of the ABDOMEN without IV contrast CT examination of the PELVIS without IV contrast PRIORS: None. FINDINGS: Small right pleural effusion layering posteriorly. Adjacent right lower lobe consolidation may be ate lectasis and/or right lower lobe pneumonia. Slight atelectasis posterior aspect of right middle lobe. Small left pleural effusion layers posteriorly with adjacent slight left lower lobe compressive atele ctasis. Patient arm in the diagnostic [id number] degrades image quality and limits the examination. Degene rative change in the regional skeleton. No evidence of acute fracture. Slight cardiomegaly and slight coronary artery calcification. Dependent calcific density in the gallbladder lumen may reflect small stones. No CT evidence of other biliary pathology. Normal noncontrast appearance of the liver, adrenals, pancreas, and spleen. Normal caliber abdominal aorta and IVC. 1 mm and 2 mm nonobstructive right renal calculi.. 1 mm and 3 mm nonobstructing left renal calculi. O therwise normal-appearing kidneys and ureters. Left lower quadrant sigmoid ostomy. Small fat containing left inguinal hernia. No retroperitoneal zarina nopathy. No evidence of focal mesenteric mass. Normal-appearing stomach and duodenum. No small bowel distention in the abdomen and pelvis. Scattered prominence of intestinal gas in the small intestine and stomach may reflect paralytic ileus . Multifocal fat stranding in the abdominal wall and mesentery may reflect anasarca. There is slight no nspecific ascites in the pelvis and bilateral pericolic gutters. This may be reactive. Urinary bladder contains air and Martinez catheter balloon. It is relatively decompressed. Normal-appear ing prostate and seminal vesicles. No definite focal rectal or sigmoid abnormality. No evidence of fr ee air or colonic distention. Normal-appearing terminal ileum and appendix. Prominent and diffuse nonspecific fatty mural stratification is present from cecum to distal descendi ng colon. It is most prominent in ascending and transverse colon. IMPRESSION: Nonspecific relatively prominent diffuse fatty mural stratification in the colon may be related to di et, body habitus, or chronic colitis. The differential includes inflammatory bowel disease. Small right pleural effusion with adjacent atelectasis and/or pneumonia. Small left pleural effusion with adjacent compressive atelectasis Scattered prominence of intestinal gas in the the stomach and small intestine may reflect paralytic i leus. Multifocal fat stranding in the abdominal wall and mesentery suggestive of anasarca Slight ascites may be reactive in both pericolic gutters Slight cardiomegaly and slight coronary artery calcification Cholelithiasis Bilateral nonobstructing renal calculi Small fat containing left inguinal hernia Left lower quadrant sigmoid ostomy
[2018-10-13] MEDS: CARDIZEM PO SCH (18:05)
[2018-10-13] MEDS: MAXIPIME/NS 2 GM/100 ML 2 GM/100 ML BAG IV SCH (18:05)
[2018-10-13] MEDS: LANTUS SUB-Q SCH (22:37)
[2018-10-14] MEDS: HumaLOG SUB-Q SCH ×6 (02:37→23:01)
[2018-10-14] MEDS: MORPHINE IV PRN ×2 (02:51→20:06)
[2018-10-14] MEDS: DUONEB *Not for PRN Use IH SCH ×7 (03:03→21:05)
[2018-10-14 05:23] LABS: Hematocrit 26.1 % (35.5-45.6); Hemoglobin 8.9 gm/dl (11.8-15.2); Mean Corpuscular HGB Conc 34 % (32-34); Mean Corpuscular Volume 87 fl (84-94); Platelet Count 200 K/mm3 (140-440); Red Blood Count 3.02 M/mm3 (3.65-5.03); Red Cell Distribution Width 16.7 % (13.2-15.2)
[2018-10-14] MEDS ORDERED: K-DUR PO ONE (06:04)
[2018-10-14] MEDS: FLAGYL 500 MG/100 ML 500 MG/100 ML BAG IV SCH ×3 (06:20→22:41)
[2018-10-14] MEDS: CARDIZEM PO SCH ×5 (06:25→23:36)
[2018-10-14] MEDS ORDERED: MAGNESIUM SULFATE IV ONE (08:00)
[2018-10-14] MEDS ORDERED: MAGNESIUM SULFATE 1 GM in NACL 0.9% 50 ML IV ONE (08:00)
--- NOTE | 2018-10-14 08:11 | Progress Note ---
Assessment and Plan Assessment: Severe sepsis/hypotension Paroxysmal atrial fibrillation with RVR Anemia - s/p PRBC tx Urinary tract infection Sacral wound Elevated troponin, likely due to hypotension/acute kidney injury Acute renal failure H/o hypertension Uncontrolled diabetes / ? HHNK Hypokalemia / hypomag Plan: EGD done yesterday. Optimize HR - pt currently weaned off levophed, pt currently NPO, cont cardizem gtt and transition to PO once enteral intake is resumed. Consider initiating systemic AC if cleared by GI.. Replete K+. Subjective Date of service: 10/14/18 Principal diagnosis: Acute Toxic metabolic encephalopathy; Septic Shock; Severe Sepsis; DKA Interval history: no complaints Objective Vital Signs Temp Pulse Pulse Resp Resp BP Pulse Ox 10/14/18 06:25 99 H 114/72 10/14/18 06:10 98 H 36 H 114/72 100 10/14/18 06:00 96 H 36 H 114/72 99 10/14/18 05:50 96 H 40 H 112/68 98 10/14/18 05:40 95 H 33 H 112/68 99 10/14/18 05:30 98 H 39 H 112/68 99 10/14/18 05:20 102 H 36 H 112/68 98 10/14/18 05:10 99 H 40 H 112/68 98 10/14/18 05:00 100 H 38 H 112/68 98 10/14/18 04:50 101 H 38 H 107/67 97 10/14/18 04:40 102 H 35 H 107/67 92 10/14/18 04:30 101 H 31 H 107/67 97 10/14/18 04:20 102 H 30 H 107/67 97 10/14/18 04:10 98 H 38 H 107/67 98 10/14/18 04:00 99 H 39 H 107/67 98 10/14/18 03:50 98.9 F 99 H 37 H 106/73 97 10/14/18 03:40 98 H 34 H 106/73 99 10/14/18 03:30 101 H 42 H 106/73 97 10/14/18 03:20 99 H 37 H 106/73 98 10/14/18 03:10 100 H 33 H 106/73 97 10/14/18 03:00 101 H 34 H 106/73 96 10/14/18 02:50 101 H 33 H 115/72 96 10/14/18 02:40 100 H 37 H 115/72 97 10/14/18 02:30 102 H 32 H 115/72 96 10/14/18 02:20 108 H 38 H 115/72 94 10/14/18 02:10 109 H 10 L 115/72 94 10/14/18 02:00 104 H 38 H 115/72 92 10/14/18 01:50 107 H 35 H 109/65 94 10/14/18 01:40 105 H 21 109/65 94 10/14/18 01:30 109 H 34 H 109/65 94 10/14/18 01:20 110 H 34 H 109/65 97 10/14/18 01:10 106 H 40 H 109/65 98 10/14/18 01:00 106 H 33 H 109/65 98 10/14/18 00:50 108 H 37 H 109/65 98 10/14/18 00:40 109 H 37 H 109/65 98 10/14/18 00:30 108 H 31 H 109/65 99 10/14/18 00:20 111 H 24 109/65 98 10/14/18 00:10 113 H 32 H 109/65 98 10/14/18 00:00 109 H 33 H 109/65 97 10/13/18 23:52 111 H 35 H 109/71 94 10/13/18 23:50 111 H 33 H 109/71 94 10/13/18 23:40 111 H 38 H 109/71 94 10/13/18 23:39 101 F H 10/13/18 23:30 113 H 36 H 109/71 97 10/13/18 23:20 117 H 31 H 109/71 97 10/13/18 23:10 115 H 37 H 109/71 97 10/13/18 23:00 115 H 33 H 109/71 97 10/13/18 22:50 117 H 26 H 110/74 96 10/13/18 22:40 117 H 31 H 110/74 97 10/13/18 22:30 118 H 36 H 110/74 97 10/13/18 22:20 121 H 34 H 110/74 97 10/13/18 22:13 98.8 F 113 H 27 H 114/70 96 10/13/18 22:10 118 H 36 H 110/74 96 10/13/18 22:00 117 H 36 H 110/74 97 10/13/18 21:50 118 H 39 H 112/62 94 10/13/18 21:40 120 H 40 H 112/62 95 10/13/18 21:30 119 H 44 H 112/62 95 10/13/18 21:20 127 H 16 112/62 95 10/13/18 21:10 130 H 34 H 112/62 97 10/13/18 21:00 128 H 36 H 112/62 96 10/13/18 20:50 124 H 32 H 103/67 98 10/13/18 20:40 125 H 35 H 115/65 98 10/13/18 20:30 129 H 23 115/65 99 10/13/18 20:20 121 H 32 H 115/65 98 10/13/18 20:10 125 H 35 H 103/67 97 10/13/18 20:00 122 H 33 H 103/67 93 10/13/18 19:53 98.4 F 10/13/18 19:50 121 H 32 H 115/65 98 10/13/18 19:42 96 10/13/18 19:41 159 H 20 10/13/18 19:40 159 H 21 115/65 96 10/13/18 19:30 113 H 29 H 105/70 98 10/13/18 19:20 113 H 27 H 105/70 98 10/13/18 19:10 117 H 17 105/70 97 10/13/18 19:00 129 H 26 H 105/70 96 10/13/18 18:50 116 H 23 105/70 97 10/13/18 18:40 118 H 21 105/70 96 10/13/18 18:30 118 H 32 H 105/70 97 10/13/18 18:20 115 H 22 105/70 97 10/13/18 18:10 114 H 21 105/70 96 10/13/18 18:05 114 H 105/70 10/13/18 18:00 112 H 21 105/70 97 10/13/18 17:50 110 H 33 H 112/69 99 10/13/18 17:40 111 H 31 H 112/69 97 10/13/18 17:34 113 H 32 H 112/69 79 L 10/13/18 17:00 109 H 24 110/63 96 10/13/18 16:50 114 H 34 H 114/71 97 10/13/18 16:40 114 H 32 H 110/70 97 10/13/18 16:30 112 H 32 H 110/70 98 10/13/18 16:20 112 H 33 H 110/70 96 10/13/18 16:10 115 H 34 H 113/71 100 10/13/18 16:00 98.3 F 113 H 26 H 116/76 99 10/13/18 15:50 119 H 17 114/70 91 10/13/18 15:40 112 H 25 H 114/70 97 10/13/18 15:34 100 H 19 116/65 96 10/13/18 15:32 95 H 21 113/70 95 10/13/18 15:30 111 H 22 114/70 98 10/13/18 15:24 94 H 17 138/94 95 10/13/18 15:20 109 H 31 H 114/70 97 10/13/18 15:11 98.7 F 80 19 128/74 98 10/13/18 15:10 109 H 30 H 114/70 98 10/13/18 15:00 110 H 20 114/70 98 10/13/18 14:50 111 H 32 H 117/71 98 10/13/18 14:40 108 H 30 H 117/71 98 10/13/18 14:30 118 H 26 H 117/71 97 10/13/18 14:20 110 H 34 H 117/71 99 10/13/18 14:10 111 H 24 117/71 96 10/13/18 14:00 110 H 22 117/71 97 10/13/18 13:50 113 H 29 H 108/65 88 10/13/18 13:40 117 H 32 H 108/65 97 10/13/18 13:30 120 H 22 108/65 91 10/13/18 13:20 112 H 19 108/63 98 10/13/18 13:10 107 H 28 H 108/63 97 10/13/18 13:00 111 H 30 H 108/63 97 10/13/18 12:50 113 H 29 H 110/71 96 10/13/18 12:40 113 H 29 H 110/71 95 10/13/18 12:30 112 H 29 H 110/71 95 10/13/18 12:20 112 H 29 H 117/72 99 10/13/18 12:15 93 10/13/18 12:10 112 H 32 H 113/69 97 10/13/18 12:00 97.5 F L 112 H 29 H 118/74 96 10/13/18 11:50 111 H 27 H 114/73 97 10/13/18 11:40 110 H 26 H 112/71 96 10/13/18 11:30 113 H 28 H 109/70 91 10/13/18 11:20 113 H 27 H 113/69 92 10/13/18 11:10 115 H 23 108/70 93 10/13/18 11:00 115 H 28 H 112/71 96 10/13/18 10:50 116 H 30 H 118/68 94 10/13/18 10:40 116 H 26 H 108/70 94 10/13/18 10:30 115 H 26 H 108/70 95 10/13/18 10:20 114 H 20 112/71 96 10/13/18 10:10 113 H 27 H 114/73 93 10/13/18 10:00 112 H 28 H 114/73 92 10/13/18 09:50 115 H 28 H 105/70 94 10/13/18 09:40 113 H 28 H 109/73 91 10/13/18 09:30 113 H 24 109/73 89 10/13/18 09:20 112 H 24 114/70 96 10/13/18 09:10 112 H 16 111/71 94 10/13/18 09:00 108 H 26 H 111/71 95 10/13/18 08:50 105 H 27 H 111/70 98 10/13/18 08:40 102 H 103 H 23 20 107/68 99 10/13/18 08:31 99 10/13/18 08:30 100 H 24 121/76 99 10/13/18 08:29 100 H 22 10/13/18 08:25 102 H 112/72 10/13/18 08:20 99 H 24 112/72 97 - Physical Examination General: Other (lethargic) HEENT: Positive: Normocephaly, Mucus Membranes Moist Neck: Positive: neck supple, trachea midline Neuro: Positive: Other (disoriented) Abdomen: Positive: Soft Extremities: Absent: edema - Labs and Meds CBC 10/14/18 Range/Units 04:36 WBC 19.8 H (4.5-11.0) K/mm3 RBC 3.02 L (3.65-5.03) M/mm3 Hgb 8.9 L (11.8-15.2) gm/dl Hct 26.1 L (35.5-45.6) % Plt Count 200 (140-440) K/mm3 Comprehensive Metabolic Panel 10/13/18 10/14/18 Range/Units 11:15 04:36 Sodium 145 D (137-145) mmol/L Potassium 3.2 L 2.9 L* (3.6-5.0) mmol/L Chloride 121.6 H (98-107) mmol/L Carbon Dioxide 16 L (22-30) mmol/L BUN 25 H (9-20) mg/dL Creatinine 1.6 H (0.8-1.5) mg/dL Glucose 117 H (75-100) mg/dL Calcium 7.0 L (8.4-10.2) mg/dL - Imaging and Cardiology EKG: image reviewed Echo: report reviewed (EF 60-65%, mild TR. ) - EKG Sinus rhythms and dysrhythmias: sinus tachycardia - Allied health notes Allied health notes reviewed: nursing
[2018-10-14] MEDS: PROTONIX PO SCH (09:22)
[2018-10-14] MEDS: KCL 10MEQ/100ML 10 MEQ/100 ML BAG IV SCH ×8 (09:22→16:23)
[2018-10-14] MEDS: SODIUM CHLORIDE FLUSH SYRINGE 10 ML IV SCH ×2 (09:22→22:40)
--- NOTE | 2018-10-14 10:18 | Progress Note ---
Assessment and Plan Impression: * Acute kidney secondary to ATN * Sepsis - ?urinary source --Blood cx - NGTD --Urine cx - greater than 2 organisms * Metabolic acidosis secondary to lactic acidosis * UTI * Hypokalemia * hypomagnesemia * Anemia Plan: * Renal function improved - SCr trending down * replete mag prn * D/C'd Bicarb gtt; IVF per primary team * Replete K prn - note orders * Abx per primary team * Transfusion per primary team - pRBC transfusion in progress * Pressors prn to maintain MAP>65 * Replete lytes prn * Dose medications for renal function * Avoid potential nephrotoxins Subjective Date of service: 10/14/18 Principal diagnosis: Acute Toxic metabolic encephalopathy; Septic Shock; Severe Sepsis; DKA Interval history: resting well in bed today Objective - Exam Narrative Exam: General appearance: chronically ill EENT: other (poor dentition) Respiratory: Present: Clear to Ascultation Cardiology: regular, tachycardia Gastrointestinal: other (ostomy) Integumentary: no rash Psychiatric: cooperative - Vital Signs Vital signs: Vital Signs - 12hr 10/13/18 10/13/18 10/13/18 22:20 22:30 22:40 Temperature Pulse Rate 121 H 118 H 117 H Pulse Rate [ Anterior Bilateral Throughout] Pulse Rate [ From Monitor] Respiratory 34 H 36 H 31 H Rate Respiratory Rate [Anterior Bilateral Throughout] Blood Pressure 110/74 110/74 110/74 O2 Sat by Pulse 97 97 97 Oximetry 10/13/18 10/13/18 10/13/18 22:50 23:00 23:10 Temperature Pulse Rate 117 H 115 H 115 H Pulse Rate [ Anterior Bilateral Throughout] Pulse Rate [ From Monitor] Respiratory 26 H 33 H 37 H Rate Respiratory Rate [Anterior Bilateral Throughout] Blood Pressure 110/74 109/71 109/71 O2 Sat by Pulse 96 97 97 Oximetry 10/13/18 10/13/18 10/13/18 23:20 23:30 23:39 Temperature 101 F H Pulse Rate 117 H 113 H Pulse Rate [ Anterior Bilateral Throughout] Pulse Rate [ From Monitor] Respiratory 31 H 36 H Rate Respiratory Rate [Anterior Bilateral Throughout] Blood Pressure 109/71 109/71 O2 Sat by Pulse 97 97 Oximetry 10/13/18 10/13/18 10/13/18 23:40 23:50 23:52 Temperature Pulse Rate 111 H 111 H 111 H Pulse Rate [ Anterior Bilateral Throughout] Pulse Rate [ From Monitor] Respiratory 38 H 33 H 35 H Rate Respiratory Rate [Anterior Bilateral Throughout] Blood Pressure 109/71 109/71 109/71 O2 Sat by Pulse 94 94 94 Oximetry 10/14/18 10/14/18 10/14/18 00:00 00:10 00:20 Temperature Pulse Rate 109 H 113 H 111 H Pulse Rate [ Anterior Bilateral Throughout] Pulse Rate [ From Monitor] Respiratory 33 H 32 H 24 Rate Respiratory Rate [Anterior Bilateral Throughout] Blood Pressure 109/65 109/65 109/65 O2 Sat by Pulse 97 98 98 Oximetry 10/14/18 10/14/18 10/14/18 00:30 00:40 00:50 Temperature Pulse Rate 108 H 109 H 108 H Pulse Rate [ Anterior Bilateral Throughout] Pulse Rate [ From Monitor] Respiratory 31 H 37 H 37 H Rate Respiratory Rate [Anterior Bilateral Throughout] Blood Pressure 109/65 109/65 109/65 O2 Sat by Pulse 99 98 98 Oximetry 10/14/18 10/14/18 10/14/18 01:00 01:10 01:20 Temperature Pulse Rate 106 H 106 H 110 H Pulse Rate [ Anterior Bilateral Throughout] Pulse Rate [ From Monitor] Respiratory 33 H 40 H 34 H Rate Respiratory Rate [Anterior Bilateral Throughout] Blood Pressure 109/65 109/65 109/65 O2 Sat by Pulse 98 98 97 Oximetry 10/14/18 10/14/18 10/14/18 01:30 01:40 01:50 Temperature Pulse Rate 109 H 105 H 107 H Pulse Rate [ Anterior Bilateral Throughout] Pulse Rate [ From Monitor] Respiratory 34 H 21 35 H Rate Respiratory Rate [Anterior Bilateral Throughout] Blood Pressure 109/65 109/65 109/65 O2 Sat by Pulse 94 94 94 Oximetry 10/14/18 10/14/18 10/14/18 02:00 02:10 02:20 Temperature Pulse Rate 104 H 109 H 108 H Pulse Rate [ Anterior Bilateral Throughout] Pulse Rate [ From Monitor] Respiratory 38 H 10 L 38 H Rate Respiratory Rate [Anterior Bilateral Throughout] Blood Pressure 115/72 115/72 115/72 O2 Sat by Pulse 92 94 94 Oximetry 10/14/18 10/14/18 10/14/18 02:30 02:40 02:50 Temperature Pulse Rate 102 H 100 H 101 H Pulse Rate [ Anterior Bilateral Throughout] Pulse Rate [ From Monitor] Respiratory 32 H 37 H 33 H Rate Respiratory Rate [Anterior Bilateral Throughout] Blood Pressure 115/72 115/72 115/72 O2 Sat by Pulse 96 97 96 Oximetry 10/14/18 10/14/18 10/14/18 03:00 03:10 03:20 Temperature Pulse Rate 101 H 100 H 99 H Pulse Rate [ Anterior Bilateral Throughout] Pulse Rate [ From Monitor] Respiratory 34 H 33 H 37 H Rate Respiratory Rate [Anterior Bilateral Throughout] Blood Pressure 106/73 106/73 106/73 O2 Sat by Pulse 96 97 98 Oximetry 10/14/18 10/14/18 10/14/18 03:30 03:40 03:50 Temperature 98.9 F Pulse Rate 101 H 98 H 99 H Pulse Rate [ Anterior Bilateral Throughout] Pulse Rate [ From Monitor] Respiratory 42 H 34 H 37 H Rate Respiratory Rate [Anterior Bilateral Throughout] Blood Pressure 106/73 106/73 106/73 O2 Sat by Pulse 97 99 97 Oximetry 10/14/18 10/14/18 10/14/18 04:00 04:10 04:20 Temperature Pulse Rate 99 H 98 H 102 H Pulse Rate [ Anterior Bilateral Throughout] Pulse Rate [ From Monitor] Respiratory 39 H 38 H 30 H Rate Respiratory Rate [Anterior Bilateral Throughout] Blood Pressure 107/67 107/67 107/67 O2 Sat by Pulse 98 98 97 Oximetry 10/14/18 10/14/18 10/14/18 04:30 04:40 04:50 Temperature Pulse Rate 101 H 102 H 101 H Pulse Rate [ Anterior Bilateral Throughout] Pulse Rate [ From Monitor] Respiratory 31 H 35 H 38 H Rate Respiratory Rate [Anterior Bilateral Throughout] Blood Pressure 107/67 107/67 107/67 O2 Sat by Pulse 97 92 97 Oximetry 10/14/18 10/14/18 10/14/18 05:00 05:10 05:20 Temperature Pulse Rate 100 H 99 H 102 H Pulse Rate [ Anterior Bilateral Throughout] Pulse Rate [ From Monitor] Respiratory 38 H 40 H 36 H Rate Respiratory Rate [Anterior Bilateral Throughout] Blood Pressure 112/68 112/68 112/68 O2 Sat by Pulse 98 98 98 Oximetry 10/14/18 10/14/18 10/14/18 05:30 05:40 05:50 Temperature Pulse Rate 98 H 95 H 96 H Pulse Rate [ Anterior Bilateral Throughout] Pulse Rate [ From Monitor] Respiratory 39 H 33 H 40 H Rate Respiratory Rate [Anterior Bilateral Throughout] Blood Pressure 112/68 112/68 112/68 O2 Sat by Pulse 99 99 98 Oximetry 10/14/18 10/14/18 10/14/18 06:00 06:10 06:20 Temperature Pulse Rate 96 H 98 H 97 H Pulse Rate [ Anterior Bilateral Throughout] Pulse Rate [ From Monitor] Respiratory 36 H 36 H 31 H Rate Respiratory Rate [Anterior Bilateral Throughout] Blood Pressure 114/72 114/72 114/72 O2 Sat by Pulse 99 100 99 Oximetry 10/14/18 10/14/18 10/14/18 06:25 06:30 06:40 Temperature Pulse Rate 99 H 99 H 102 H Pulse Rate [ Anterior Bilateral Throughout] Pulse Rate [ From Monitor] Respiratory 34 H 34 H Rate Respiratory Rate [Anterior Bilateral Throughout] Blood Pressure 114/72 114/72 114/72 O2 Sat by Pulse 100 99 Oximetry 10/14/18 10/14/18 10/14/18 06:50 07:00 07:10 Temperature Pulse Rate 100 H 103 H 97 H Pulse Rate [ Anterior Bilateral Throughout] Pulse Rate [ From Monitor] Respiratory 34 H 35 H 33 H Rate Respiratory Rate [Anterior Bilateral Throughout] Blood Pressure 114/72 114/71 114/71 O2 Sat by Pulse 98 98 100 Oximetry 10/14/18 10/14/18 10/14/18 07:20 07:30 07:40 Temperature Pulse Rate 100 H 99 H 97 H Pulse Rate [ Anterior Bilateral Throughout] Pulse Rate [ From Monitor] Respiratory 32 H 30 H 33 H Rate Respiratory Rate [Anterior Bilateral Throughout] Blood Pressure 114/71 114/71 114/71 O2 Sat by Pulse 99 100 100 Oximetry 10/14/18 10/14/18 10/14/18 07:50 08:00 08:10 Temperature 98.3 F Pulse Rate 109 H 105 H 101 H Pulse Rate [ Anterior Bilateral Throughout] Pulse Rate [ 98 H From Monitor] Respiratory 29 H 23 32 H Rate Respiratory Rate [Anterior Bilateral Throughout] Blood Pressure 114/71 99/40 114/71 O2 Sat by Pulse 98 98 99 Oximetry 10/14/18 10/14/18 10/14/18 08:20 08:30 08:40 Temperature Pulse Rate 100 H 100 H 99 H Pulse Rate [ Anterior Bilateral Throughout] Pulse Rate [ From Monitor] Respiratory 29 H 30 H 27 H Rate Respiratory Rate [Anterior Bilateral Throughout] Blood Pressure 114/71 114/71 114/71 O2 Sat by Pulse 98 100 99 Oximetry 10/14/18 10/14/18 10/14/18 08:50 09:00 09:10 Temperature Pulse Rate 98 H 102 H 156 H Pulse Rate [ 97 H 98 H Anterior Bilateral Throughout] Pulse Rate [ From Monitor] Respiratory 30 H 30 H 35 H Rate Respiratory 26 H 24 Rate [Anterior Bilateral Throughout] Blood Pressure 114/71 113/74 99/40 O2 Sat by Pulse 99 100 98 Oximetry 10/14/18 10/14/18 10/14/18 09:20 09:30 09:40 Temperature Pulse Rate 111 H 104 H 101 H Pulse Rate [ Anterior Bilateral Throughout] Pulse Rate [ From Monitor] Respiratory 38 H 33 H 34 H Rate Respiratory Rate [Anterior Bilateral Throughout] Blood Pressure 99/40 113/74 113/74 O2 Sat by Pulse 98 98 99 Oximetry 10/14/18 10/14/18 09:50 10:00 Temperature Pulse Rate 99 H 102 H Pulse Rate [ Anterior Bilateral Throughout] Pulse Rate [ From Monitor] Respiratory 30 H 30 H Rate Respiratory Rate [Anterior Bilateral Throughout] Blood Pressure 113/74 107/69 O2 Sat by Pulse 99 Oximetry - Lab 10/14/18 04:36 10/14/18 09:45 Most recent lab results Calcium 7.0 mg/dL (8.4-10.2) L 10/14/18 04:36 Phosphorus 4.80 mg/dL (2.5-4.5) H 10/11/18 06:51 Magnesium 1.20 mg/dL (1.7-2.3) L 10/14/18 04:36 Medications & Allergies - Medications Allergies/Adverse Reactions: Allergies No Known Allergies Allergy (Unverified 10/11/18 05:00) Home Medications: Home Medications Medication Instructions Recorded Confirmed Last Taken Type Acetaminophen [Acetaminophen ER] 650 mg PO Q6H PRN 10/11/18 10/11/18 Unknown History Allopurinol 300 mg PO QDAY 10/11/18 10/11/18 Unknown History Amlodipine Besylate [Norvasc] 5 mg PO DAILY 10/11/18 10/11/18 Unknown History Atorvastatin [Lipitor Tab] 80 mg PO QHS 10/11/18 10/11/18 Unknown History Calcium Carbonate [Calcium Antacid] 200 mg PO TID 10/11/18 10/11/18 Unknown History Collagenase Clostridium Hist. 1 applic TP BID 10/11/18 10/11/18 Unknown History [Santyl] Collagenase Clostridium Hist. 1 applic TP QPM 10/11/18 10/11/18 Unknown History [Santyl] HYDROcodone/APAP 7.5-325 [Kelly 1 each PO Q4HR PRN 10/11/18 10/11/18 Unknown History 7.5/325] Metformin HCl [Glucophage] 500 mg PO BID 10/11/18 10/11/18 Unknown History Mirtazapine [Remeron] 15 mg PO HS 10/11/18 10/11/18 Unknown History Sulfamethoxazole/Trimethoprim 1 each PO BID 10/11/18 10/11/18 Unknown History [Bactrim DS TAB] Active Medications: Generic Name Dose Route Start Last Admin Trade Name Freq PRN Reason Stop Dose Admin Acetaminophen 650 mg 10/12/18 06:45 Tylenol PO Q4H PRN Pain, Mild (1-3) Albuterol 2.5 mg 10/11/18 08:21 Proventil IH Q3HRT PRN Shortness Of Breath Albuterol/Ipratropium 1 ampul 10/11/18 14:00 10/14/18 08:50 Duoneb *Not For Prn Use* IH 1 ampul Q6HRT [place] Administration Dextrose 0 ml 10/11/18 06:14 10/12/18 01:48 D50w (25gm) Syringe IV 20 ml ONCE PRN Administration Hypoglycemia Diltiazem HCl 30 mg 10/13/18 18:00 10/14/18 06:25 Cardizem PO 30 mg Q6HR [place] Administration Norepinephrine 4 mg in 250 mls @ 7.5 mls/hr 10/11/18 06:00 10/12/18 07:10 Levophed Drip 4 Mg/Ns 250 Ml IV 10 mcg/min TITR FRANCISCO 37.5 mls/hr Administration Protocol 2 MCG/MIN Metronidazole 500 mg in 100 mls @ 100 mls/hr 10/11/18 14:00 10/14/18 06:20 Flagyl 500 Mg/100 Ml IV 100 mls/hr Q8HR [place] Administration Protocol Vasopressin 20 unit/ Sodium 101 mls @ 9.09 mls/hr 10/11/18 17:00 10/13/18 08:26 Chloride IV 0 units/min TITR FRANCISCO 0 mls/hr Infusion 0.03 UNITS/MIN Potassium Chloride/Sodium Chloride 20 meq in 1,000 mls @ 100 mls/hr 10/13/18 06:00 10/13/18 22:38 Ns/Kcl 20meq IV 100 mls/hr DIRECT [place] Administration Potassium Chloride 10 meq in 100 mls @ 100 mls/hr 10/14/18 08:00 10/14/18 09:22 Kcl 10meq/100ml IV 10/14/18 11:59 100 mls/hr Q1H [place] Administration Potassium Chloride 10 meq in 100 mls @ 100 mls/hr 10/14/18 13:00 Kcl 10meq/100ml IV 10/14/18 16:59 Q1H [place] Cefepime HCl 2 gm in 100 mls @ 200 mls/hr 10/14/18 10:00 Maxipime/Ns 2 Gm/100 Ml IV Q12HR [facility] Protocol Insulin Glargine 20 units 10/13/18 22:00 10/13/18 22:37 Lantus SUB-Q 20 units QHS [place] Administration Insulin Human Lispro 0 unit 10/12/18 09:00 10/14/18 06:18 Humalog SUB-Q Not Given Q6HR [place] Protocol Morphine Sulfate 4 mg 10/12/18 22:30 10/14/18 02:51 Morphine IV 4 mg Q4H PRN Administration Pain , Severe (7-10) Ondansetron HCl 4 mg 10/11/18 09:30 Zofran IV Q8H PRN Nausea And Vomiting Pantoprazole Sodium 40 mg 10/14/18 10:00 10/14/18 09:22 Protonix PO 40 mg QDAY [place] Administration Sodium Chloride 10 ml 10/11/18 10:00 10/14/18 09:22 Sodium Chloride Flush Syringe 10 Ml IV 10 ml BID [place] Administration Sodium Chloride 10 ml 10/11/18 09:00 Sodium Chloride Flush Syringe 10 Ml IV PRN PRN LINE FLUSH
[2018-10-14] MEDS: MAXIPIME/NS 2 GM/100 ML 2 GM/100 ML BAG IV SCH ×2 (10:57→22:40)
[2018-10-14] MEDS ORDERED: MAGNESIUM SULFATE 2GM/50ML 2 GM/50 ML BAG IV ONE (11:00)
--- NOTE | 2018-10-14 12:24 | Progress Note ---
Assessment and Plan Assessment and plan: Dinora is a 58 year old male presenting from CT ([facility]) Pt is a very poor historian, per medical records he has history of paroxysmal atrial fibrillation, hypertension, diabetes, Colosotomy and lack of coordination with Muscle weakness anal abscess with recent debridement in Aug 2018, chronic indwelling suarez who was referred to the ER from his long-term for evaluation of fever and low blood pressure and altered mental status. In the ER he was found to have urosepsis, acute renal failure and DKA with elevated troponin. Patient was unable to provided any information due to incoherence of his thoughts he complained of dry mouth per the ED Physician. He denies any chest pain, palpitations or shortness of breath. A report from the CT revealed that he was noted this morning to be confused with shivering. Labs done the day prior to admission revealed a wbc of 31.4 per the staff. The patient in the ED was started on sepsis protocol and also pressers labs from long-term done 10/10/17: wbc 31.4, hgb 9.1, plt 271 Acute Toxic metabolic encephalopathy Septic Shock Severe Sepsis Hyperosmolar NonKetotic Hyperglycemia Uncontrolled DM MALCOLM secondary to vasomotor nephropathy Severe acute blood loss anemia on anemia of chronic disease Metabolic acidosis Colostomy Unstagable scaral pressure ulcer POA Afib with RVR Troponemia- Type 2 NSTEMI Hypokalemia Severe Protein calorie malnutrition Plan Continue supportive care Cont long acting insulin Discontinued Heparin drip in the setting of severe anemia Renal function improvement noted Hgb improved following 3 units PRBC GI input noted. No high risk bleed risk noted. Transfuse PRBC as needed Cardiology, lime kiln tender, ID, SURGICAL, nephrology input noted Sepsis protocol ET consult NOTED Wean pressors as tolerated PICC team for Access and D/C Right femoral Line. Replace electrolytes Fall precautions DVT/GI prophy Transfer to Telemetry The high probability of a clinically significant, sudden or life threatening deterioration of the [CARDIAC, RENAL, GI] system(s) required my full and direct attention, intervention and personal management. The aggregate critical care time was [35] minutes. This time is in addition to time spent performing reported procedures but includes the following: [X] Data Review and interpretation [X] Patient assessment and monitoring of vital signs [X] Documentation [X] Medication orders and management History Interval history: Patient seen and examined, improving mentation, NO NEW COMPLAINTS, OFF THE PRESSORS. Hospitalist Physical - Physical exam Narrative exam: General appearance: Present: mild distress, - EENT Eyes: Present: PERRL, EOM intact ENT: clear oral mucosa - Neck Neck: Present: supple, normal ROM - Respiratory Respiratory effort: normal Respiratory: bilateral: diminished - Cardiovascular Heart Sounds: Present: S1 & S2, gallop. Absent: systolic murmur - Extremities Extremities: no ischemia, pulses intact, pulses symmetrical, No edema, normal temperature, normal color Peripheral Pulses: within normal limits - Abdominal General gastrointestinal: Present: non-tender, non-distended, other (good pink colostomy site) - Integumentary Integumentary: Present: warm wound vac in place - Musculoskeletal Musculoskeletal: generalized weakness - Psychiatric Psychiatric: agitated - Neurologic Neurologic: aao x3. moves ext - Allied Health Allied health notes reviewed: nursing - Constitutional Vitals: Temp Pulse Resp BP Pulse Ox 97.7 F 103 H 24 107/65 98 10/14/18 11:27 10/14/18 12:20 10/14/18 12:20 10/14/18 12:20 10/14/18 12:20 General appearance: Present: mild distress, disheveled Results - Labs CBC & Chem 7: 10/14/18 04:36 10/14/18 09:45 Labs: Laboratory Last Values WBC 19.8 K/mm3 (4.5-11.0) H 10/14/18 04:36 RBC 3.02 M/mm3 (3.65-5.03) L 10/14/18 04:36 Hgb 8.9 gm/dl (11.8-15.2) L 10/14/18 04:36 Hct 26.1 % (35.5-45.6) L 10/14/18 04:36 MCV 87 fl (84-94) 10/14/18 04:36 MCH 30 pg (28-32) 10/14/18 04:36 MCHC 34 % (32-34) 10/14/18 04:36 RDW 16.7 % (13.2-15.2) H 10/14/18 04:36 Plt Count 200 K/mm3 (140-440) 10/14/18 04:36 Add Manual Diff Complete 10/11/18 05:21 Total Counted 100 10/11/18 05:21 Seg Neuts % (Manual) 90.0 % (40.0-70.0) H 10/11/18 05:21 Band Neutrophils % 6.0 % 10/11/18 05:21 Lymphocytes % (Manual) 4.0 % (13.4-35.0) L 10/11/18 05:21 Reactive Lymphs % (Man) 0 % 10/11/18 05:21 Monocytes % (Manual) 0 % (0.0-7.3) 10/11/18 05:21 Eosinophils % (Manual) 0 % (0.0-4.3) 10/11/18 05:21 Basophils % (Manual) 0 % (0.0-1.8) 10/11/18 05:21 Metamyelocytes % 0 % 10/11/18 05:21 Myelocytes % 0 % 10/11/18 05:21 Promyelocytes % 0 % 10/11/18 05:21 Blast Cells % 0 % 10/11/18 05:21 Nucleated RBC % Not Reportable 10/11/18 05:21 Seg Neutrophils # Man 20.1 K/mm3 (1.8-7.7) H 10/11/18 05:21 Band Neutrophils # 1.3 K/mm3 10/11/18 05:21 Lymphocytes # (Manual) 0.9 K/mm3 (1.2-5.4) L 10/11/18 05:21 Abs React Lymphs (Man) 0.0 K/mm3 10/11/18 05:21 Monocytes # (Manual) 0.0 K/mm3 (0.0-0.8) 10/11/18 05:21 Eosinophils # (Manual) 0.0 K/mm3 (0.0-0.4) 10/11/18 05:21 Basophils # (Manual) 0.0 K/mm3 (0.0-0.1) 10/11/18 05:21 Metamyelocytes # 0.0 K/mm3 10/11/18 05:21 Myelocytes # 0.0 K/mm3 10/11/18 05:21 Promyelocytes # 0.0 K/mm3 10/11/18 05:21 Blast Cells # 0.0 K/mm3 10/11/18 05:21 WBC Morphology Not Reportable 10/11/18 05:21 Hypersegmented Neuts Not Reportable 10/11/18 05:21 Hyposegmented Neuts Not Reportable 10/11/18 05:21 Hypogranular Neuts Not Reportable 10/11/18 05:21 Smudge Cells Not Reportable 10/11/18 05:21 Toxic Granulation Not Reportable 10/11/18 05:21 Toxic Vacuolation Not Reportable 10/11/18 05:21 Dohle Bodies Not Reportable 10/11/18 05:21 Pelger-Huet Anomaly Not Reportable 10/11/18 05:21 Lisa Rods Not Reportable 10/11/18 05:21 Platelet Estimate Appears normal 10/11/18 05:21 Clumped Platelets Not Reportable 10/11/18 05:21 Plt Clumps, EDTA Not Reportable 10/11/18 05:21 Large Platelets Not Reportable 10/11/18 05:21 Giant Platelets Not Reportable 10/11/18 05:21 Platelet Satelliting Not Reportable 10/11/18 05:21 Plt Morphology Comment Not Reportable 10/11/18 05:21 RBC Morphology Not Reportable 10/11/18 05:21 Dimorphic RBCs Not Reportable 10/11/18 05:21 Polychromasia Few 10/11/18 05:21 Hypochromasia Not Reportable 10/11/18 05:21 Poikilocytosis 2+ 10/11/18 05:21 Anisocytosis 2+ 10/11/18 05:21 Microcytosis Not Reportable 10/11/18 05:21 Macrocytosis Not Reportable 10/11/18 05:21 Spherocytes Not Reportable 10/11/18 05:21 Pappenheimer Bodies Not Reportable 10/11/18 05:21 Sickle Cells Not Reportable 10/11/18 05:21 Target Cells Not Reportable 10/11/18 05:21 Tear Drop Cells Not Reportable 10/11/18 05:21 Ovalocytes 1+ 10/11/18 05:21 Helmet Cells Not Reportable 10/11/18 05:21 [place] Bodies Not Reportable 10/11/18 05:21 [place] Rings Not Reportable 10/11/18 05:21 Leslie Cells 2+ 10/11/18 05:21 Bite Cells Not Reportable 10/11/18 05:21 Crenated Cell Not Reportable 10/11/18 05:21 Elliptocytes Not Reportable 10/11/18 05:21 Acanthocytes (Spur) Few 10/11/18 05:21 Rouleaux Not Reportable 10/11/18 05:21 Hemoglobin C Crystals Not Reportable 10/11/18 05:21 Schistocytes Not Reportable 10/11/18 05:21 Malaria parasites Not Reportable 10/11/18 05:21 [place] Bodies Not Reportable 10/11/18 05:21 Hem Pathologist Commnt No 10/11/18 05:21 PT 17.1 Sec. (12.2-14.9) H 10/11/18 05:21 INR 1.35 (0.87-1.13) H 10/11/18 05:21 POC ABG pH 7.380 (7.35-7.45) 10/11/18 17:53 POC ABG pCO2 28.2 (35-45) L 10/11/18 17:53 POC ABG pO2 60 (80-105) L 10/11/18 17:53 POC ABG HCO3 16.7 10/11/18 17:53 POC ABG Total CO2 18 10/11/18 17:53 POC ABG O2 Sat 91 10/11/18 17:53 POC ABG Base Excess -8 10/11/18 17:53 VBG pH 7.226 (7.320-7.420) L 10/11/18 05:21 FiO2 2 % 10/11/18 17:53 Sodium 145 mmol/L (137-145) D 10/14/18 04:36 Potassium 3.2 mmol/L (3.6-5.0) L 10/14/18 09:45 Chloride 121.6 mmol/L (98-107) H 10/14/18 04:36 Carbon Dioxide 16 mmol/L (22-30) L 10/14/18 04:36 Anion Gap 10 mmol/L 10/14/18 04:36 BUN 25 mg/dL (9-20) H 10/14/18 04:36 Creatinine 1.6 mg/dL (0.8-1.5) H 10/14/18 04:36 Estimated GFR 54 ml/min 10/14/18 04:36 BUN/Creatinine Ratio 16 % 10/14/18 04:36 Glucose 117 mg/dL (75-100) H 10/14/18 04:36 POC Glucose 110 (70-105) H 10/14/18 10:59 Lactic Acid 1.50 mmol/L (0.7-2.0) 10/12/18 04:20 Calcium 7.0 mg/dL (8.4-10.2) L 10/14/18 04:36 Phosphorus 4.80 mg/dL (2.5-4.5) H 10/11/18 06:51 Magnesium 1.20 mg/dL (1.7-2.3) L 10/14/18 04:36 Total Bilirubin 0.30 mg/dL (0.1-1.2) 10/12/18 04:20 AST 25 units/L (5-40) 10/12/18 04:20 ALT 10 units/L (7-56) 10/12/18 04:20 Alkaline Phosphatase 109 units/L (35-129) 10/12/18 04:20 Total Creatine Kinase 933 units/L (55-170) H 10/11/18 17:58 CK-MB (CK-2) 2.8 ng/mL (0.0-4.0) 10/11/18 17:58 CK-MB (CK-2) Rel Index 0.3 (0-4) 10/11/18 17:58 Troponin T 0.116 ng/mL (0.00-0.029) H* 10/11/18 05:21 Total Protein 5.8 g/dL (6.3-8.2) L 10/12/18 04:20 Albumin 1.8 g/dL (3.9-5) L 10/12/18 04:20 Albumin/Globulin Ratio 0.5 % 10/12/18 04:20 Triglycerides 120 mg/dL (2-149) 10/11/18 05:21 Cholesterol 26 mg/dL (50-199) L 10/11/18 05:21 LDL Cholesterol Direct 4 mg/dL (50-130) L 10/11/18 05:21 HDL Cholesterol 7 mg/dL (40-59) L 10/11/18 05:21 Cholesterol/HDL Ratio 3.71 % 10/11/18 05:21 Urine Color Christine (Yellow) 10/11/18 Unknown Urine Turbidity Turbid (Clear) 10/11/18 Unknown Urine pH 5.0 (5.0-7.0) 10/11/18 Unknown Ur Specific [place] 1.019 (1.003-1.030) 10/11/18 Unknown Urine Protein 100 mg/dl mg/dL (Negative) 10/11/18 Unknown Urine Glucose (UA) Neg mg/dL (Negative) 10/11/18 Unknown Urine Ketones Neg mg/dL (Negative) 10/11/18 Unknown Urine Blood Sm (Negative) 10/11/18 Unknown Urine Nitrite Neg (Negative) 10/11/18 Unknown Urine Bilirubin Neg (Negative) 10/11/18 Unknown Urine Urobilinogen < 2.0 mg/dL (<2.0) 10/11/18 Unknown Ur Leukocyte Esterase Lg (Negative) 10/11/18 Unknown Urine WBC (Auto) > 182.0 /HPF (0.0-6.0) H 10/11/18 Unknown Urine RBC (Auto) 57.0 /HPF (0.0-6.0) 10/11/18 Unknown U Epithel Cells (Auto) 1.0 /HPF (0-13.0) 10/11/18 06:08 Urine Bacteria (Auto) 3+ /HPF (Negative) 10/11/18 Unknown Urine WBC Clumps 3+ /HPF 10/11/18 Unknown Urine Mucus 2+ /HPF 10/11/18 Unknown Random Vancomycin 5.7 ug/mL (0-40.0) 10/13/18 05:30 Blood Type A POSITIVE 10/11/18 09:05 Antibody Screen Negative 10/11/18 09:05 Crossmatch See Detail 10/11/18 09:05 Nutrition/Malnutrition Assess - Dietary Evaluation Nutrition/Malnutrition Findings: Nutrition Notes Start: 10/12/18 12:55 Freq: Status: Active Protocol: Document 10/13/18 15:09 (Rec: 10/13/18 15:20 [email or web address]) Co-Sign 10/13/18 15:09 LP Nutrition Notes Initial or Follow up Reassessment Current Diagnosis Acute Kidney Injury Decubitus(Pressure Ulcer) Diabetes Hypertension Other Pertinent Diagnosis Sepsis, Stg. 4 decubitus, hyperglycemia, s/p colostomy Current Diet NPO Labs/Tests NA 135 K 2.8 BUN 37 Cr 2.0 BG 413 Pertinent Medications Reviewed Height 6 ft Weight 78.018 kg [place] Body Weight (kg) 178.0 BMI 23.3 Weight Status Appropriate Subjective/Other Information F/U for PSYCHOLOGIST [employer]IT[employer] PERSONNEL note/ diet advancement. Pt passed bedside swallow and had diet advancement to CHO consistent yesterday (10/12/18). Pt currently on NPO until EGT is performed. Percent of energy/protein needs met: 0%/0% Burn Absent Trauma Absent Current % PO Negligible #1 Nutrition Diagnosis Inadequate oral intake Diagnosis Progress(for reassessment Continues documentation) Is patient on ventilator? No Is Patient Ambulatory and/or Out of Bed No REE-([facility]-confined to bed) [phone] Calculation Used for Recommendations [facility] Additional Notes Pro: 94-156g/day (1.2-2 g/kg BW) Fluid: 1 ml/kcal Nutrition Intervention Change Diet Order: Advance to consistent CHO diet if medically feasible Add Supplement/Snack (indicate name/kcal Norm BID for wound healing if /protein ) diet is advanced Provides kCal: 190 Provides Protein (gm) 5 Goal #1 Diet advancement if medically feasible Anticipated Discharge Needs: Unknown at this time Follow-Up By: 10/16/18 Additional Comments F/U for diet advancement/ PO intake
--- NOTE | 2018-10-14 12:32 | Progress Note ---
Assessment and Plan Acute Toxic metabolic encephalopathy Septic Shock Severe Sepsis DKA MALCOLM secondary to vasomotor nephropathy Metabolic acidosis Colostomy Unstagable scaral pressure ulcer POA Afib with RVR Troponemia- Type 2 NSTEMI Anemia of chronic disease Hypokalemia Severe Protein calorie malnutrition - continue p.o. cardizem once NPO status discontinued - weaned off IV cardizem - Heparin drip held re: Anemia not appropriately responsive to transfusions - Surgical evaluation ongoing re: sacral decubitus - continue Sepsis protocol - continue cefepime empirically; follow cultures & clinically for de-escalation - continue GI & VTE prophylaxis - PT/OT evaluation ongoing - follow Renal ultrasound - continue fall precautions - Continue GI & VTE prophylaxis - continue mobility protocol for pressure ulcer prophylaxis - continue other care per attending / other consultants ...re-evaluate in am & prn .... OK to transfer to medical floor FULL CODE Subjective Date of service: 10/14/18 Principal diagnosis: Acute Toxic metabolic encephalopathy; Septic Shock; Severe Sepsis; DKA Interval history: Patient is seen today for: Acute Toxic metabolic encephalopathy; Septic Shock; Severe Sepsis; DKA Seen and examined at bedside; 24hour events reviewed; nursing and respiratory care staff consulted; no adverse overnight events reported to me; resting peacefully in bed; no gross bleeding; s/p EGD; no active bleeder; H&H stable; remains off vasopressors Objective Vital Signs - 12hr 10/14/18 10/14/18 10/14/18 00:40 00:50 01:00 Temperature Pulse Rate 109 H 108 H 106 H Pulse Rate [ Anterior Bilateral Throughout] Pulse Rate [ From Monitor] Respiratory 37 H 37 H 33 H Rate Respiratory Rate [Anterior Bilateral Throughout] Blood Pressure 109/65 109/65 109/65 O2 Sat by Pulse 98 98 98 Oximetry 10/14/18 10/14/18 10/14/18 01:10 01:20 01:30 Temperature Pulse Rate 106 H 110 H 109 H Pulse Rate [ Anterior Bilateral Throughout] Pulse Rate [ From Monitor] Respiratory 40 H 34 H 34 H Rate Respiratory Rate [Anterior Bilateral Throughout] Blood Pressure 109/65 109/65 109/65 O2 Sat by Pulse 98 97 94 Oximetry 10/14/18 10/14/18 10/14/18 01:40 01:50 02:00 Temperature Pulse Rate 105 H 107 H 104 H Pulse Rate [ Anterior Bilateral Throughout] Pulse Rate [ From Monitor] Respiratory 21 35 H 38 H Rate Respiratory Rate [Anterior Bilateral Throughout] Blood Pressure 109/65 109/65 115/72 O2 Sat by Pulse 94 94 92 Oximetry 10/14/18 10/14/18 10/14/18 02:10 02:20 02:30 Temperature Pulse Rate 109 H 108 H 102 H Pulse Rate [ Anterior Bilateral Throughout] Pulse Rate [ From Monitor] Respiratory 10 L 38 H 32 H Rate Respiratory Rate [Anterior Bilateral Throughout] Blood Pressure 115/72 115/72 115/72 O2 Sat by Pulse 94 94 96 Oximetry 10/14/18 10/14/18 10/14/18 02:40 02:50 03:00 Temperature Pulse Rate 100 H 101 H 101 H Pulse Rate [ Anterior Bilateral Throughout] Pulse Rate [ From Monitor] Respiratory 37 H 33 H 34 H Rate Respiratory Rate [Anterior Bilateral Throughout] Blood Pressure 115/72 115/72 106/73 O2 Sat by Pulse 97 96 96 Oximetry 10/14/18 10/14/18 10/14/18 03:10 03:20 03:30 Temperature Pulse Rate 100 H 99 H 101 H Pulse Rate [ Anterior Bilateral Throughout] Pulse Rate [ From Monitor] Respiratory 33 H 37 H 42 H Rate Respiratory Rate [Anterior Bilateral Throughout] Blood Pressure 106/73 106/73 106/73 O2 Sat by Pulse 97 98 97 Oximetry 10/14/18 10/14/18 10/14/18 03:40 03:50 04:00 Temperature 98.9 F Pulse Rate 98 H 99 H 99 H Pulse Rate [ Anterior Bilateral Throughout] Pulse Rate [ From Monitor] Respiratory 34 H 37 H 39 H Rate Respiratory Rate [Anterior Bilateral Throughout] Blood Pressure 106/73 106/73 107/67 O2 Sat by Pulse 99 97 98 Oximetry 10/14/18 10/14/18 10/14/18 04:10 04:20 04:30 Temperature Pulse Rate 98 H 102 H 101 H Pulse Rate [ Anterior Bilateral Throughout] Pulse Rate [ From Monitor] Respiratory 38 H 30 H 31 H Rate Respiratory Rate [Anterior Bilateral Throughout] Blood Pressure 107/67 107/67 107/67 O2 Sat by Pulse 98 97 97 Oximetry 10/14/18 10/14/18 10/14/18 04:40 04:50 05:00 Temperature Pulse Rate 102 H 101 H 100 H Pulse Rate [ Anterior Bilateral Throughout] Pulse Rate [ From Monitor] Respiratory 35 H 38 H 38 H Rate Respiratory Rate [Anterior Bilateral Throughout] Blood Pressure 107/67 107/67 112/68 O2 Sat by Pulse 92 97 98 Oximetry 10/14/18 10/14/18 10/14/18 05:10 05:20 05:30 Temperature Pulse Rate 99 H 102 H 98 H Pulse Rate [ Anterior Bilateral Throughout] Pulse Rate [ From Monitor] Respiratory 40 H 36 H 39 H Rate Respiratory Rate [Anterior Bilateral Throughout] Blood Pressure 112/68 112/68 112/68 O2 Sat by Pulse 98 98 99 Oximetry 10/14/18 10/14/18 10/14/18 05:40 05:50 06:00 Temperature Pulse Rate 95 H 96 H 96 H Pulse Rate [ Anterior Bilateral Throughout] Pulse Rate [ From Monitor] Respiratory 33 H 40 H 36 H Rate Respiratory Rate [Anterior Bilateral Throughout] Blood Pressure 112/68 112/68 114/72 O2 Sat by Pulse 99 98 99 Oximetry 10/14/18 10/14/18 10/14/18 06:10 06:20 06:25 Temperature Pulse Rate 98 H 97 H 99 H Pulse Rate [ Anterior Bilateral Throughout] Pulse Rate [ From Monitor] Respiratory 36 H 31 H Rate Respiratory Rate [Anterior Bilateral Throughout] Blood Pressure 114/72 114/72 114/72 O2 Sat by Pulse 100 99 Oximetry 10/14/18 10/14/18 10/14/18 06:30 06:40 06:50 Temperature Pulse Rate 99 H 102 H 100 H Pulse Rate [ Anterior Bilateral Throughout] Pulse Rate [ From Monitor] Respiratory 34 H 34 H 34 H Rate Respiratory Rate [Anterior Bilateral Throughout] Blood Pressure 114/72 114/72 114/72 O2 Sat by Pulse 100 99 98 Oximetry 10/14/18 10/14/18 10/14/18 07:00 07:10 07:20 Temperature Pulse Rate 103 H 97 H 100 H Pulse Rate [ Anterior Bilateral Throughout] Pulse Rate [ From Monitor] Respiratory 35 H 33 H 32 H Rate Respiratory Rate [Anterior Bilateral Throughout] Blood Pressure 114/71 114/71 114/71 O2 Sat by Pulse 98 100 99 Oximetry 10/14/18 10/14/18 10/14/18 07:30 07:40 07:50 Temperature Pulse Rate 99 H 97 H 109 H Pulse Rate [ Anterior Bilateral Throughout] Pulse Rate [ From Monitor] Respiratory 30 H 33 H 29 H Rate Respiratory Rate [Anterior Bilateral Throughout] Blood Pressure 114/71 114/71 114/71 O2 Sat by Pulse 100 100 98 Oximetry 10/14/18 10/14/18 10/14/18 08:00 08:10 08:20 Temperature 98.3 F Pulse Rate 105 H 101 H 100 H Pulse Rate [ Anterior Bilateral Throughout] Pulse Rate [ 98 H From Monitor] Respiratory 23 32 H 29 H Rate Respiratory Rate [Anterior Bilateral Throughout] Blood Pressure 99/40 114/71 114/71 O2 Sat by Pulse 98 99 98 Oximetry 10/14/18 10/14/18 10/14/18 08:30 08:40 08:50 Temperature Pulse Rate 100 H 99 H 98 H Pulse Rate [ 97 H Anterior Bilateral Throughout] Pulse Rate [ From Monitor] Respiratory 30 H 27 H 30 H Rate Respiratory 26 H Rate [Anterior Bilateral Throughout] Blood Pressure 114/71 114/71 114/71 O2 Sat by Pulse 100 99 99 Oximetry 10/14/18 10/14/18 10/14/18 09:00 09:10 09:20 Temperature Pulse Rate 102 H 156 H 111 H Pulse Rate [ 98 H Anterior Bilateral Throughout] Pulse Rate [ From Monitor] Respiratory 30 H 35 H 38 H Rate Respiratory 24 Rate [Anterior Bilateral Throughout] Blood Pressure 113/74 99/40 99/40 O2 Sat by Pulse 100 98 98 Oximetry 10/14/18 10/14/18 10/14/18 09:30 09:40 09:50 Temperature Pulse Rate 104 H 101 H 99 H Pulse Rate [ Anterior Bilateral Throughout] Pulse Rate [ From Monitor] Respiratory 33 H 34 H 30 H Rate Respiratory Rate [Anterior Bilateral Throughout] Blood Pressure 113/74 113/74 113/74 O2 Sat by Pulse 98 99 Oximetry 10/14/18 10/14/18 10/14/18 10:00 10:10 10:20 Temperature Pulse Rate 102 H 100 H 101 H Pulse Rate [ Anterior Bilateral Throughout] Pulse Rate [ From Monitor] Respiratory 30 H 32 H 21 Rate Respiratory Rate [Anterior Bilateral Throughout] Blood Pressure 107/69 107/69 107/69 O2 Sat by Pulse 99 96 99 Oximetry 10/14/18 10/14/18 10/14/18 10:30 10:40 10:50 Temperature Pulse Rate 100 H 98 H 104 H Pulse Rate [ Anterior Bilateral Throughout] Pulse Rate [ From Monitor] Respiratory 33 H 34 H 32 H Rate Respiratory Rate [Anterior Bilateral Throughout] Blood Pressure 107/69 107/69 107/69 O2 Sat by Pulse 98 99 97 Oximetry 10/14/18 10/14/18 10/14/18 11:00 11:06 11:10 Temperature Pulse Rate 100 H 99 H 102 H Pulse Rate [ Anterior Bilateral Throughout] Pulse Rate [ From Monitor] Respiratory 33 H 32 H Rate Respiratory Rate [Anterior Bilateral Throughout] Blood Pressure 107/65 107/65 107/69 O2 Sat by Pulse 97 98 Oximetry 10/14/18 10/14/18 10/14/18 11:20 11:27 11:30 Temperature 97.7 F Pulse Rate 99 H 99 H Pulse Rate [ Anterior Bilateral Throughout] Pulse Rate [ From Monitor] Respiratory 33 H 25 H Rate Respiratory Rate [Anterior Bilateral Throughout] Blood Pressure 107/69 107/69 O2 Sat by Pulse 97 98 Oximetry 10/14/18 10/14/18 10/14/18 11:40 11:50 12:00 Temperature Pulse Rate 99 H 98 H 100 H Pulse Rate [ Anterior Bilateral Throughout] Pulse Rate [ 101 H From Monitor] Respiratory 33 H 36 H 31 H Rate Respiratory Rate [Anterior Bilateral Throughout] Blood Pressure 107/69 107/69 103/69 O2 Sat by Pulse 98 97 99 Oximetry 10/14/18 10/14/18 12:10 12:20 Temperature Pulse Rate 104 H 103 H Pulse Rate [ Anterior Bilateral Throughout] Pulse Rate [ From Monitor] Respiratory 31 H 24 Rate Respiratory Rate [Anterior Bilateral Throughout] Blood Pressure 107/65 107/65 O2 Sat by Pulse 98 98 Oximetry Constitutional: alert, appears uncomfortable, other (elderly looking AAM, normocephalic and atraumatic with mildly increased resp effort at rest) Eyes: non-icteric ENT: oropharynx dry, other (Mallampati 2) Neck: supple, no lymphadenopathy, no JVD Effort: mildly labored Ascultation: Bilateral: clear Percussion: Bilateral: not dull Cardiovascular: irregular rhythm, other (No R/M) Gastrointestinal: hypoactive bowel sounds, soft, non-tender, non-distended Integumentary: rash, decubitus ulcer (sacral) Extremities: no cyanosis, no edema, pulses normal, no ischemia or petechiae Neurologic: normal mental status, non-focal exam (grossly), pupils equal and round, other (weak lower extremities) Psychiatric: mood appropriate, affect normal CBC and BMP: 10/15/18 11:21 10/15/18 11:21 ABG, PT/INR, D-dimer: ABG POC ABG pH 7.380 (7.35-7.45) 10/11/18 17:53 POC ABG pCO2 28.2 (35-45) L 10/11/18 17:53 POC ABG pO2 60 (80-105) L 10/11/18 17:53 POC ABG HCO3 16.7 10/11/18 17:53 POC ABG Total CO2 18 10/11/18 17:53 POC ABG O2 Sat 91 10/11/18 17:53 PT/INR, D-dimer PT 17.1 Sec. (12.2-14.9) H 10/11/18 05:21 INR 1.35 (0.87-1.13) H 10/11/18 05:21 Abnormal lab findings: Abnormal Labs 10/11/18 10/11/18 10/11/18 05:21 05:21 05:21 WBC 22.3 H RBC 2.62 L Hgb 8.0 L Hct 24.5 L MCHC RDW 16.0 H Seg Neuts % (Manual) 90.0 H Lymphocytes % (Manual) 4.0 L Seg Neutrophils # Man 20.1 H Lymphocytes # (Manual) 0.9 L PT 17.1 H INR 1.35 H POC ABG pCO2 POC ABG pO2 VBG pH Sodium 133 L Potassium 2.8 L* Chloride 94.5 L Carbon Dioxide 11 L BUN 69 H Creatinine 5.0 H Glucose 362 H POC Glucose Lactic Acid Calcium 7.4 L Phosphorus Magnesium Total Creatine Kinase Troponin T 0.116 H* Total Protein 6.2 L Albumin 2.1 L Cholesterol 26 L LDL Cholesterol Direct 4 L HDL Cholesterol 7 L Urine WBC (Auto) Crossmatch 10/11/18 10/11/18 10/11/18 05:21 05:21 05:21 WBC RBC Hgb Hct MCHC RDW Seg Neuts % (Manual) Lymphocytes % (Manual) Seg Neutrophils # Man Lymphocytes # (Manual) PT INR POC ABG pCO2 POC ABG pO2 VBG pH 7.226 L Sodium Potassium Chloride Carbon Dioxide BUN Creatinine Glucose POC Glucose Lactic Acid 7.40 H* Calcium Phosphorus Magnesium Total Creatine Kinase 1094 H Troponin T Total Protein Albumin Cholesterol LDL Cholesterol Direct HDL Cholesterol Urine WBC (Auto) Crossmatch 10/11/18 10/11/1810/11/19 06:08 06:51 06:51 WBC RBC Hgb Hct MCHC RDW Seg Neuts % (Manual) Lymphocytes % (Manual) Seg Neutrophils # Man Lymphocytes # (Manual) PT INR POC ABG pCO2 POC ABG pO2 VBG pH Sodium 132 L Potassium 3.1 L Chloride 94.3 L Carbon Dioxide 10 L BUN 68 H Creatinine 5.8 H Glucose 402 H POC Glucose Lactic Acid 7.80 H* Calcium 7.8 L Phosphorus 4.80 H Magnesium 0.90 L* Total Creatine Kinase Troponin T Total Protein Albumin Cholesterol LDL Cholesterol Direct HDL Cholesterol Urine WBC (Auto) > 182.0 H Crossmatch 10/11/18 10/11/18 10/11/18 08:56 09:05 10:23 WBC RBC Hgb Hct MCHC RDW Seg Neuts % (Manual) Lymphocytes % (Manual) Seg Neutrophils # Man Lymphocytes # (Manual) PT INR POC ABG pCO2 POC ABG pO2 VBG pH Sodium Potassium Chloride Carbon Dioxide BUN Creatinine Glucose POC Glucose 367 H 305 H Lactic Acid Calcium Phosphorus Magnesium Total Creatine Kinase Troponin T Total Protein Albumin Cholesterol LDL Cholesterol Direct HDL Cholesterol Urine WBC (Auto) Crossmatch See Detail 10/11/18 10/11/18 10/11/18 11:12 12:17 12:18 WBC RBC Hgb Hct MCHC RDW Seg Neuts % (Manual) Lymphocytes % (Manual) Seg Neutrophils # Man Lymphocytes # (Manual) PT INR POC ABG pCO2 POC ABG pO2 VBG pH Sodium 135 L Potassium 2.8 L* Chloride 97.9 L Carbon Dioxide 14 L BUN 67 H Creatinine 6.0 H Glucose 246 H POC Glucose 299 H 261 H Lactic Acid Calcium 7.5 L Phosphorus Magnesium Total Creatine Kinase 1110 H Troponin T Total Protein Albumin Cholesterol LDL Cholesterol Direct HDL Cholesterol Urine WBC (Auto) Crossmatch 10/11/18 10/11/18 10/11/18 13:05 14:13 14:34 WBC RBC Hgb Hct MCHC RDW Seg Neuts % (Manual) Lymphocytes % (Manual) Seg Neutrophils # Man Lymphocytes # (Manual) PT INR POC ABG pCO2 POC ABG pO2 VBG pH Sodium 135 L Potassium 2.7 L* Chloride Carbon Dioxide 18 L BUN 68 H Creatinine 5.0 H Glucose 191 H POC Glucose 251 H 233 H Lactic Acid Calcium 7.1 L Phosphorus Magnesium Total Creatine Kinase Troponin T Total Protein Albumin Cholesterol LDL Cholesterol Direct HDL Cholesterol Urine WBC (Auto) Crossmatch 10/11/18 10/11/18 10/11/18 15:08 16:00 17:20 WBC RBC Hgb Hct MCHC RDW Seg Neuts % (Manual) Lymphocytes % (Manual) Seg Neutrophils # Man Lymphocytes # (Manual) PT INR POC ABG pCO2 POC ABG pO2 VBG pH Sodium Potassium Chloride Carbon Dioxide BUN Creatinine Glucose POC Glucose 213 H 224 H 187 H Lactic Acid Calcium Phosphorus Magnesium Total Creatine Kinase Troponin T Total Protein Albumin Cholesterol LDL Cholesterol Direct HDL Cholesterol Urine WBC (Auto) Crossmatch 10/11/18 10/11/18 10/11/18 17:53 17:58 18:12 WBC RBC Hgb Hct MCHC RDW Seg Neuts % (Manual) Lymphocytes % (Manual) Seg Neutrophils # Man Lymphocytes # (Manual) PT INR POC ABG pCO2 28.2 L POC ABG pO2 60 L VBG pH Sodium Potassium Chloride Carbon Dioxide BUN Creatinine Glucose POC Glucose 189 H Lactic Acid Calcium Phosphorus Magnesium Total Creatine Kinase 933 H Troponin T Total Protein Albumin Cholesterol LDL Cholesterol Direct HDL Cholesterol Urine WBC (Auto) Crossmatch 10/11/18 10/11/18 10/11/18 18:58 20:16 21:10 WBC RBC Hgb Hct MCHC RDW Seg Neuts % (Manual) Lymphocytes % (Manual) Seg Neutrophils # Man Lymphocytes # (Manual) PT INR POC ABG pCO2 POC ABG pO2 VBG pH Sodium Potassium Chloride Carbon Dioxide BUN Creatinine Glucose POC Glucose 192 H 179 H 160 H Lactic Acid Calcium Phosphorus Magnesium Total Creatine Kinase Troponin T Total Protein Albumin Cholesterol LDL Cholesterol Direct HDL Cholesterol Urine WBC (Auto) Crossmatch 10/11/18 10/11/18 10/11/18 22:14 22:42 23:09 WBC RBC Hgb Hct MCHC RDW Seg Neuts % (Manual) Lymphocytes % (Manual) Seg Neutrophils # Man Lymphocytes # (Manual) PT INR POC ABG pCO2 POC ABG pO2 VBG pH Sodium 136 L Potassium 2.9 L* Chloride Carbon Dioxide 17 L BUN 61 H Creatinine 4.0 H Glucose 122 H POC Glucose 145 H 129 H Lactic Acid Calcium 6.6 L Phosphorus Magnesium Total Creatine Kinase Troponin T Total Protein Albumin Cholesterol LDL Cholesterol Direct HDL Cholesterol Urine WBC (Auto) Crossmatch 10/11/18 10/11/18 10/11/18 Unknown Unknown Unknown WBC RBC Hgb Hct MCHC RDW Seg Neuts % (Manual) Lymphocytes % (Manual) Seg Neutrophils # Man Lymphocytes # (Manual) PT INR POC ABG pCO2 POC ABG pO2 VBG pH Sodium 133 L Potassium 3.0 L Chloride 93.7 L Carbon Dioxide 9 L* BUN 67 H Creatinine 5.9 H Glucose 406 H POC Glucose Lactic Acid 8.50 H* Calcium 7.6 L Phosphorus Magnesium Total Creatine Kinase Troponin T Total Protein Albumin Cholesterol LDL Cholesterol Direct HDL Cholesterol Urine WBC (Auto) > 182.0 H Crossmatch 10/12/18 10/12/18 10/12/18 00:18 01:42 02:03 WBC RBC Hgb Hct MCHC RDW Seg Neuts % (Manual) Lymphocytes % (Manual) Seg Neutrophils # Man Lymphocytes # (Manual) PT INR POC ABG pCO2 POC ABG pO2 VBG pH Sodium Potassium Chloride Carbon Dioxide BUN Creatinine Glucose POC Glucose 113 H 51 L 116 H Lactic Acid Calcium Phosphorus Magnesium Total Creatine Kinase Troponin T Total Protein Albumin Cholesterol LDL Cholesterol Direct HDL Cholesterol Urine WBC (Auto) Crossmatch 10/12/18 10/12/18 10/12/18 03:09 04:20 04:20 WBC 26.8 H RBC 2.22 L Hgb 6.7 L Hct 19.4 L* MCHC 35 H RDW 15.8 H Seg Neuts % (Manual) Lymphocytes % (Manual) Seg Neutrophils # Man Lymphocytes # (Manual) PT INR POC ABG pCO2 POC ABG pO2 VBG pH Sodium Potassium 2.6 L* Chloride Carbon Dioxide 20 L BUN 56 H Creatinine 4.0 H Glucose 134 H POC Glucose 129 H Lactic Acid Calcium 6.4 L Phosphorus Magnesium 1.30 L Total Creatine Kinase Troponin T Total Protein 5.8 L Albumin 1.8 L Cholesterol LDL Cholesterol Direct HDL Cholesterol Urine WBC (Auto) Crossmatch 10/12/18 10/12/18 10/12/18 04:22 05:25 06:25 WBC RBC Hgb Hct MCHC RDW Seg Neuts % (Manual) Lymphocytes % (Manual) Seg Neutrophils # Man Lymphocytes # (Manual) PT INR POC ABG pCO2 POC ABG pO2 VBG pH Sodium Potassium 2.7 L* Chloride Carbon Dioxide 19 L BUN 51 H Creatinine 3.6 H Glucose 113 H POC Glucose 186 H 131 H Lactic Acid Calcium 6.4 L Phosphorus Magnesium Total Creatine Kinase Troponin T Total Protein Albumin Cholesterol LDL Cholesterol Direct HDL Cholesterol Urine WBC (Auto) Crossmatch 10/12/18 10/12/18 10/12/18 07:34 08:28 09:29 WBC RBC Hgb Hct MCHC RDW Seg Neuts % (Manual) Lymphocytes % (Manual) Seg Neutrophils # Man Lymphocytes # (Manual) PT INR POC ABG pCO2 POC ABG pO2 VBG pH Sodium Potassium Chloride Carbon Dioxide BUN Creatinine Glucose POC Glucose 120 H 110 H 140 H Lactic Acid Calcium Phosphorus Magnesium Total Creatine Kinase Troponin T Total Protein Albumin Cholesterol LDL Cholesterol Direct HDL Cholesterol Urine WBC (Auto) Crossmatch 10/12/18 10/12/18 10/12/18 11:55 12:55 12:55 WBC RBC Hgb 7.1 L Hct 20.6 L MCHC RDW Seg Neuts % (Manual) Lymphocytes % (Manual) Seg Neutrophils # Man Lymphocytes # (Manual) PT INR POC ABG pCO2 POC ABG pO2 VBG pH Sodium 136 L Potassium 2.9 L* Chloride Carbon Dioxide 16 L BUN 48 H Creatinine 3.1 H Glucose 258 H POC Glucose 219 H Lactic Acid Calcium 6.3 L Phosphorus Magnesium Total Creatine Kinase Troponin T Total Protein Albumin Cholesterol LDL Cholesterol Direct HDL Cholesterol Urine WBC (Auto) Crossmatch 10/12/18 10/12/18 10/12/18 12:55 17:49 19:23 WBC RBC Hgb 7.7 L Hct 22.9 L MCHC RDW Seg Neuts % (Manual) Lymphocytes % (Manual) Seg Neutrophils # Man Lymphocytes # (Manual) PT INR POC ABG pCO2 POC ABG pO2 VBG pH Sodium Potassium Chloride Carbon Dioxide BUN Creatinine Glucose POC Glucose 344 H Lactic Acid Calcium Phosphorus Magnesium 4.80 H Total Creatine Kinase Troponin T Total Protein Albumin Cholesterol LDL Cholesterol Direct HDL Cholesterol Urine WBC (Auto) Crossmatch 10/12/18 10/13/18 10/13/18 22:21 00:15 05:28 WBC RBC Hgb Hct MCHC RDW Seg Neuts % (Manual) Lymphocytes % (Manual) Seg Neutrophils # Man Lymphocytes # (Manual) PT INR POC ABG pCO2 POC ABG pO2 VBG pH Sodium Potassium Chloride Carbon Dioxide BUN Creatinine Glucose POC Glucose 367 H 392 H 356 H Lactic Acid Calcium Phosphorus Magnesium Total Creatine Kinase Troponin T Total Protein Albumin Cholesterol LDL Cholesterol Direct HDL Cholesterol Urine WBC (Auto) Crossmatch 01/25/19 01/25/19 01/25/19 05:30 05:30 06:37 WBC 19.2 H RBC 2.67 L Hgb 7.9 L Hct 23.2 L MCHC RDW 16.4 H Seg Neuts % (Manual) Lymphocytes % (Manual) Seg Neutrophils # Man Lymphocytes # (Manual) PT INR POC ABG pCO2 POC ABG pO2 VBG pH Sodium 135 L Potassium 2.8 L* Chloride Carbon Dioxide 17 L BUN 37 H Creatinine 2.0 H Glucose 383 H POC Glucose 413 H Lactic Acid Calcium 6.6 L Phosphorus Magnesium Total Creatine Kinase Troponin T Total Protein Albumin Cholesterol LDL Cholesterol Direct HDL Cholesterol Urine WBC (Auto) Crossmatch 10/13/18 10/13/18 10/13/18 11:15 12:46 17:47 WBC RBC Hgb Hct MCHC RDW Seg Neuts % (Manual) Lymphocytes % (Manual) Seg Neutrophils # Man Lymphocytes # (Manual) PT INR POC ABG pCO2 POC ABG pO2 VBG pH Sodium Potassium 3.2 L Chloride Carbon Dioxide BUN Creatinine Glucose POC Glucose 220 H 181 H Lactic Acid Calcium Phosphorus Magnesium Total Creatine Kinase Troponin T Total Protein Albumin Cholesterol LDL Cholesterol Direct HDL Cholesterol Urine WBC (Auto) Crossmatch 10/13/18 10/13/18 10/13/18 19:45 22:19 23:53 WBC RBC Hgb Hct MCHC RDW Seg Neuts % (Manual) Lymphocytes % (Manual) Seg Neutrophils # Man Lymphocytes # (Manual) PT INR POC ABG pCO2 POC ABG pO2 VBG pH Sodium Potassium Chloride Carbon Dioxide BUN Creatinine Glucose POC Glucose 185 H 153 H 152 H Lactic Acid Calcium Phosphorus Magnesium Total Creatine Kinase Troponin T Total Protein Albumin Cholesterol LDL Cholesterol Direct HDL Cholesterol Urine WBC (Auto) Crossmatch 10/14/18 10/14/18 10/14/18 02:38 04:36 04:36 WBC 19.8 H RBC 3.02 L Hgb 8.9 L Hct 26.1 L MCHC RDW 16.7 H Seg Neuts % (Manual) Lymphocytes % (Manual) Seg Neutrophils # Man Lymphocytes # (Manual) PT INR POC ABG pCO2 POC ABG pO2 VBG pH Sodium Potassium 2.9 L* Chloride 121.6 H Carbon Dioxide 16 L BUN 25 H Creatinine 1.6 H Glucose 117 H POC Glucose 142 H Lactic Acid Calcium 7.0 L Phosphorus Magnesium Total Creatine Kinase Troponin T Total Protein Albumin Cholesterol LDL Cholesterol Direct HDL Cholesterol Urine WBC (Auto) Crossmatch 10/14/18 10/14/18 10/14/18 04:36 09:45 10:59 WBC RBC Hgb Hct MCHC RDW Seg Neuts % (Manual) Lymphocytes % (Manual) Seg Neutrophils # Man Lymphocytes # (Manual) PT INR POC ABG pCO2 POC ABG pO2 VBG pH Sodium Potassium 3.2 L Chloride Carbon Dioxide BUN Creatinine Glucose POC Glucose 110 H Lactic Acid Calcium Phosphorus Magnesium 1.20 L Total Creatine Kinase Troponin T Total Protein Albumin Cholesterol LDL Cholesterol Direct HDL Cholesterol Urine WBC (Auto) Crossmatch Allied health notes reviewed: nursing
[2018-10-14] MEDS: LANTUS SUB-Q SCH (22:56)
[2018-10-15] MEDS: DUONEB *Not for PRN Use IH SCH ×4 (02:48→20:57)
[2018-10-15] MEDS: CARDIZEM PO SCH ×3 (06:24→18:13)
[2018-10-15] MEDS: HumaLOG SUB-Q SCH ×3 (06:26→20:38)
[2018-10-15] MEDS: FLAGYL 500 MG/100 ML 500 MG/100 ML BAG IV SCH ×3 (06:26→22:15)
[2018-10-15] MEDS: MORPHINE IV PRN (09:17)
[2018-10-15] MEDS: SODIUM CHLORIDE FLUSH SYRINGE 10 ML IV SCH ×2 (09:19→22:18)
[2018-10-15] MEDS: PROTONIX PO SCH (09:19)
[2018-10-15] MEDS: MAXIPIME/NS 2 GM/100 ML 2 GM/100 ML BAG IV SCH (10:56)
[2018-10-15 11:41] LABS: Hematocrit 26.4 % (35.5-45.6); Hemoglobin 8.6 gm/dl (11.8-15.2); Mean Corpuscular HGB Conc 33 % (32-34); Mean Corpuscular Volume 88 fl (84-94); Platelet Count 234 K/mm3 (140-440); Red Blood Count 2.99 M/mm3 (3.65-5.03); Red Cell Distribution Width 16.9 % (13.2-15.2)
[2018-10-15 11:56] LABS: Calcium 7.2 mg/dL (8.4-10.2)
[2018-10-15] MEDS ORDERED: MAGNESIUM SULFATE 2GM/50ML 2 GM/50 ML BAG IV ONE (12:22)
--- NOTE | 2018-10-15 12:24 | Progress Note ---
Assessment and Plan Assessment: Severe sepsis/hypotension Paroxysmal atrial fibrillation with RVR Anemia - s/p PRBC tx Urinary tract infection Sacral wound Elevated troponin, likely due to hypotension/acute kidney injury Acute renal failure H/o hypertension Uncontrolled diabetes / ? HHNK Hypokalemia / hypomag Plan: Optimize HR - cont po ccb. Consider initiating systemic AC if cleared by GI.. Subjective Date of service: 10/15/18 Principal diagnosis: Acute Toxic metabolic encephalopathy; Septic Shock; Severe Sepsis; DKA Interval history: no complaints Objective Vital Signs Temp Pulse Pulse Pulse Pulse Resp Resp 10/15/18 08:53 99 H 10/15/18 08:14 100 H 18 10/15/18 08:00 100 H 17 10/15/18 07:14 97.9 F 95 H 18 10/15/18 06:24 96 H 10/15/18 04:46 98.0 F 96 H 20 10/15/18 00:00 90 18 10/14/18 23:36 110 H 10/14/18 23:34 98.0 F 105 H 18 10/14/18 21:05 106 H 24 10/14/18 20:36 17 10/14/18 20:23 105 H 10/14/18 20:06 18 10/14/18 19:25 98.0 F 111 H 18 10/14/18 19:00 10/14/18 18:41 10/14/18 18:00 115 H 22 10/14/18 17:50 108 H 34 H 10/14/18 17:40 104 H 26 H 10/14/18 17:38 105 H 10/14/18 17:30 106 H 33 H 10/14/18 17:20 104 H 34 H 10/14/18 17:10 106 H 19 10/14/18 17:00 107 H 33 H 10/14/18 16:50 105 H 31 H 10/14/18 16:40 106 H 34 H 10/14/18 16:30 107 H 32 H 10/14/18 16:20 106 H 30 H 10/14/18 16:10 105 H 26 H 10/14/18 16:00 98.1 F 107 H 106 H 31 H 10/14/18 15:50 106 H 32 H 10/14/18 15:40 108 H 27 H 10/14/18 15:30 107 H 33 H 10/14/18 15:20 107 H 33 H 10/14/18 15:10 109 H 35 H 10/14/18 15:00 107 H 35 H 10/14/18 14:50 106 H 34 H 10/14/18 14:40 110 H 34 H 10/14/18 14:30 109 H 32 H 10/14/18 14:20 107 H 32 H 10/14/18 14:10 107 H 33 H 10/14/18 14:00 105 H 38 H 10/14/18 13:50 107 H 31 H 10/14/18 13:40 106 H 33 H 10/14/18 13:30 106 H 31 H 10/14/18 13:20 108 H 35 H 10/14/18 13:10 106 H 35 H 10/14/18 13:00 101 H 23 10/14/18 12:50 102 H 31 H 10/14/18 12:40 102 H 31 H 10/14/18 12:30 100 H 31 H BP Pulse Ox 10/15/18 08:53 10/15/18 08:14 93 10/15/18 08:00 10/15/18 07:14 93/59 95 10/15/18 06:24 96/51 10/15/18 04:46 90/51 97 10/15/18 00:00 10/14/18 23:36 95/61 10/14/18 23:34 95/61 94 10/14/18 21:05 99 10/14/18 20:36 10/14/18 20:23 10/14/18 20:06 10/14/18 19:25 101/66 97 10/14/18 19:00 107/75 84 10/14/18 18:41 107/75 75 L 10/14/18 18:00 105/75 94 10/14/18 17:50 105/75 96 10/14/18 17:40 105/75 99 10/14/18 17:38 112/77 10/14/18 17:30 105/75 97 10/14/18 17:20 105/75 96 10/14/18 17:10 112/77 96 10/14/18 17:00 112/77 95 10/14/18 16:50 111/76 95 10/14/18 16:40 111/76 96 10/14/18 16:30 111/76 95 10/14/18 16:20 111/76 96 10/14/18 16:10 105/75 96 10/14/18 16:00 105/75 96 10/14/18 15:50 111/76 96 10/14/18 15:40 111/76 96 10/14/18 15:30 111/76 95 10/14/18 15:20 111/76 96 10/14/18 15:10 111/76 95 10/14/18 15:00 111/76 95 10/14/18 14:50 109/76 95 10/14/18 14:40 109/76 94 10/14/18 14:30 109/76 94 10/14/18 14:20 109/76 94 10/14/18 14:10 109/76 94 10/14/18 14:00 101/70 94 10/14/18 13:50 109/76 93 10/14/18 13:40 109/76 94 10/14/18 13:30 109/76 94 10/14/18 13:20 109/76 94 10/14/18 13:10 109/76 95 10/14/18 13:00 109/76 98 10/14/18 12:50 107/65 99 10/14/18 12:40 107/65 97 10/14/18 12:30 107/65 99 - Physical Examination General: Other (lethargic) HEENT: Positive: Normocephaly, Mucus Membranes Moist Neck: Positive: neck supple, trachea midline Neuro: Positive: Other (disoriented) Abdomen: Positive: Soft Extremities: Absent: edema - Labs and Meds CBC 10/15/18 Range/Units 11:21 WBC 31.9 H (4.5-11.0) K/mm3 RBC 2.99 L (3.65-5.03) M/mm3 Hgb 8.6 L (11.8-15.2) gm/dl Hct 26.4 L (35.5-45.6) % Plt Count 234 (140-440) K/mm3 Comprehensive Metabolic Panel 10/15/18 Range/Units 11:21 Sodium 139 (137-145) mmol/L Potassium 4.3 D (3.6-5.0) mmol/L Chloride 111.6 H (98-107) mmol/L Carbon Dioxide 14 L (22-30) mmol/L BUN 19 (9-20) mg/dL Creatinine 1.5 (0.8-1.5) mg/dL Glucose 175 H (75-100) mg/dL Calcium 7.2 L (8.4-10.2) mg/dL - Imaging and Cardiology EKG: image reviewed Echo: report reviewed (EF 60-65%, mild TR. ) - EKG Sinus rhythms and dysrhythmias: sinus tachycardia - Allied health notes Allied health notes reviewed: nursing
--- NOTE | 2018-10-15 12:25 | Progress Note ---
Assessment and Plan Impression: * Acute kidney secondary to ATN * Sepsis - ?urinary source --Blood cx - NGTD --Urine cx - greater than 2 organisms * Metabolic acidosis secondary to lactic acidosis * UTI * Hypokalemia * hypomagnesemia * Anemia Plan: * Renal function improved - SCr trending down * replete mag prn * restart k with Bicarb gtt * add po sodium bicarb * Replete K prn - note orders * Abx per primary team * Transfusion per primary team - pRBC transfusion in progress * Replete lytes prn * Dose medications for renal function * Avoid potential nephrotoxins Subjective Date of service: 10/15/18 Principal diagnosis: Acute Toxic metabolic encephalopathy; Septic Shock; Severe Sepsis; DKA Interval history: resting well in bed today Objective - Exam Narrative Exam: General appearance: chronically ill EENT: other (poor dentition) Respiratory: Present: Clear to Ascultation Cardiology: regular, tachycardia Gastrointestinal: other (ostomy) Integumentary: no rash Psychiatric: cooperative - Vital Signs Vital signs: Vital Signs - 12hr 10/15/18 10/15/18 10/15/18 04:46 06:24 07:14 Temperature 98.0 F 97.9 F Pulse Rate 96 H 96 H 95 H Pulse Rate [ Anterior Bilateral Throughout] Respiratory 20 18 Rate Respiratory Rate [Anterior Bilateral Throughout] Blood Pressure 90/51 96/51 93/59 O2 Sat by Pulse 97 95 Oximetry 10/15/18 10/15/18 10/15/18 08:00 08:14 08:53 Temperature Pulse Rate 99 H Pulse Rate [ 100 H 100 H Anterior Bilateral Throughout] Respiratory Rate Respiratory 17 18 Rate [Anterior Bilateral Throughout] Blood Pressure O2 Sat by Pulse 93 Oximetry - Lab 10/15/18 11:21 10/15/18 11:21 Most recent lab results Calcium 7.2 mg/dL (8.4-10.2) L 10/15/18 11:21 Phosphorus 4.80 mg/dL (2.5-4.5) H 10/11/18 06:51 Magnesium 1.20 mg/dL (1.7-2.3) L 10/14/18 04:36 Medications & Allergies - Medications Allergies/Adverse Reactions: Allergies No Known Allergies Allergy (Unverified 10/11/18 05:00) Home Medications: Home Medications Medication Instructions Recorded Confirmed Last Taken Type Acetaminophen [Acetaminophen ER] 650 mg PO Q6H PRN 10/11/18 10/11/18 Unknown History Allopurinol 300 mg PO QDAY 10/11/18 10/11/18 Unknown History Amlodipine Besylate [Norvasc] 5 mg PO DAILY 10/11/18 10/11/18 Unknown History Atorvastatin [Lipitor Tab] 80 mg PO QHS 10/11/18 10/11/18 Unknown History Calcium Carbonate [Calcium Antacid] 200 mg PO TID 10/11/18 10/11/18 Unknown History Collagenase Clostridium Hist. 1 applic TP BID 10/11/18 10/11/18 Unknown History [Santyl] Collagenase Clostridium Hist. 1 applic TP QPM 10/11/18 10/11/18 Unknown History [Santyl] HYDROcodone/APAP 7.5-325 [[place] 1 each PO Q4HR PRN 10/11/18 10/11/18 Unknown History 7.5/325] Metformin HCl [Glucophage] 500 mg PO BID 10/11/18 10/11/18 Unknown History Mirtazapine [Remeron] 15 mg PO HS 10/11/18 10/11/18 Unknown History Sulfamethoxazole/Trimethoprim 1 each PO BID 10/11/18 10/11/18 Unknown History [Bactrim DS TAB] Active Medications: Generic Name Dose Route Start Last Admin Trade Name Freq PRN Reason Stop Dose Admin Acetaminophen 650 mg 10/12/18 06:45 Tylenol PO Q4H PRN Pain, Mild (1-3) Albuterol 2.5 mg 10/11/18 08:21 Proventil IH Q3HRT PRN Shortness Of Breath Albuterol/Ipratropium 1 ampul 10/11/18 14:00 10/15/18 08:13 Duoneb *Not For Prn Use* IH 1 ampul Q6HRT [place] Administration Dextrose 0 ml 10/11/18 06:14 10/12/18 01:48 D50w (25gm) Syringe IV 20 ml ONCE PRN Administration Hypoglycemia Diltiazem HCl 30 mg 10/13/18 18:00 10/15/18 06:24 Cardizem PO Not Given Q6HR [facility] Metronidazole 500 mg in 100 mls @ 100 mls/hr 10/11/18 14:00 10/15/18 06:26 Flagyl 500 Mg/100 Ml IV 100 mls/hr Q8HR [place] Administration Protocol Cefepime HCl 2 gm in 100 mls @ 200 mls/hr 10/14/18 10:00 10/15/18 10:56 Maxipime/Ns 2 Gm/100 Ml IV 200 mls/hr Q12HR [facility] Administration Protocol Sodium Bicarbonate 50 meq/ 1,060 mls @ 100 mls/hr 10/15/18 13:00 Potassium Chloride 20 meq/ IV Sodium Chloride DIRECT [facility] Magnesium Sulfate 2 gm in 50 mls @ 25 mls/hr 10/15/18 12:22 Magnesium Sulfate 2gm/50ml IV 10/15/18 14:21 ONCE ONE Insulin Glargine 20 units 10/13/18 22:00 10/14/18 22:56 Lantus SUB-Q Not Given QHS COUNTS INCLUDE 234 BEDS AT THE [facility] Insulin Human Lispro 0 unit 10/12/18 09:00 10/15/18 06:26 Humalog SUB-Q 3 unit Q6HR COUNTS INCLUDE 234 BEDS AT THE [facility] Administration Protocol Morphine Sulfate 4 mg 10/12/18 22:30 10/15/18 09:17 Morphine IV 4 mg Q4H PRN Administration Pain , Severe (7-10) Ondansetron HCl 4 mg 10/11/18 09:30 Zofran IV Q8H PRN Nausea And Vomiting Pantoprazole Sodium 40 mg 10/14/18 10:00 10/15/18 09:19 Protonix PO 40 mg QDAY [facility] Administration Sodium Bicarbonate 1,300 mg 10/15/18 13:00 Sodium Bicarbonate PO BID [facility] Sodium Chloride 10 ml 10/11/18 10:00 10/15/18 09:19 Sodium Chloride Flush Syringe 10 Ml IV 10 ml BID [place] Administration Sodium Chloride 10 ml 10/11/18 09:00 Sodium Chloride Flush Syringe 10 Ml IV PRN PRN LINE FLUSH
--- NOTE | 2018-10-15 12:33 | Progress Note ---
Assessment and Plan Acute Toxic metabolic encephalopathy Septic Shock Severe Sepsis DKA MALCOLM secondary to vasomotor nephropathy Metabolic acidosis Colostomy Unstagable scaral pressure ulcer POA Afib with RVR Troponemia- Type 2 NSTEMI Anemia of chronic disease Hypokalemia Severe Protein calorie malnutrition - titrate levophed to keep MAP > 65 mmHg - volume resuscitation - Heparin drip held re: Anemia not appropriately responsive to transfusions - Surgical evaluation ongoing re: sacral decubitus - continue Sepsis protocol - continue cefepime (BC's grew B-hemolytic strep) - continue GI & VTE prophylaxis - PT/OT evaluation ongoing - follow Renal ultrasound - continue fall precautions - Continue GI & VTE prophylaxis - continue mobility protocol for pressure ulcer prophylaxis - continue other care per attending / other consultants ...re-evaluate in am & prn FULL CODE The high probability of a clinically significant, sudden or life threatening deterioration of the [CARDIAC, RENAL, ] system(s) required my full and direct attention, intervention and personal management. The aggregate critical care time was [36] minutes. This time is in addition to time spent performing reported procedures but includes the following: [X] Data Review and interpretation [X] Patient assessment and monitoring of vital signs [X] Documentation [X] Medication orders and management Subjective Date of service: 10/15/18 Principal diagnosis: Acute Toxic metabolic encephalopathy; Septic Shock; Severe Sepsis; DKA Interval history: Patient is seen today for: Acute Toxic metabolic encephalopathy; Septic Shock; Severe Sepsis; DKA Seen and examined at bedside; 24hour events reviewed; nursing and respiratory care staff consulted; no adverse overnight events reported to me; resting peacefully in bed; decompensated on medical floor and hypotensive; now on levophed drip; No emesis or overt aspiration; denies acute chest pains or palpitations Objective Vital Signs - 12hr 10/15/18 10/15/18 10/15/18 04:46 06:24 07:14 Temperature 98.0 F 97.9 F Pulse Rate 96 H 96 H 95 H Pulse Rate [ Anterior Bilateral Throughout] Respiratory 20 18 Rate Respiratory Rate [Anterior Bilateral Throughout] Blood Pressure 90/51 96/51 93/59 O2 Sat by Pulse 97 95 Oximetry 10/15/18 10/15/18 10/15/18 08:00 08:14 08:53 Temperature Pulse Rate 99 H Pulse Rate [ 100 H 100 H Anterior Bilateral Throughout] Respiratory Rate Respiratory 17 18 Rate [Anterior Bilateral Throughout] Blood Pressure O2 Sat by Pulse 93 Oximetry Constitutional: alert, appears uncomfortable, other (elderly looking AAM, normocephalic and atraumatic with mildly increased resp effort at rest) Eyes: non-icteric ENT: oropharynx dry, other (Mallampati 2) Neck: supple, no lymphadenopathy, no JVD Effort: mildly labored Ascultation: Bilateral: clear Percussion: Bilateral: not dull Cardiovascular: irregular rhythm, other (No R/M) Gastrointestinal: hypoactive bowel sounds, soft, non-tender, non-distended Integumentary: rash, decubitus ulcer (sacral) Extremities: no cyanosis, no edema, pulses normal, no ischemia or petechiae Neurologic: normal mental status, non-focal exam (grossly), pupils equal and round, other (weak lower extremities) Psychiatric: mood appropriate, affect normal CBC and BMP: 10/16/18 05:08 10/16/18 05:08 ABG, PT/INR, D-dimer: ABG POC ABG pH 7.380 (7.35-7.45) 10/11/18 17:53 POC ABG pCO2 28.2 (35-45) L 10/11/18 17:53 POC ABG pO2 60 (80-105) L 10/11/18 17:53 POC ABG HCO3 16.7 10/11/18 17:53 POC ABG Total CO2 18 10/11/18 17:53 POC ABG O2 Sat 91 10/11/18 17:53 PT/INR, D-dimer PT 17.1 Sec. (12.2-14.9) H 10/11/18 05:21 INR 1.35 (0.87-1.13) H 10/11/18 05:21 Abnormal lab findings: Abnormal Labs 10/11/18 10/11/18 10/11/18 05:21 05:21 05:21 WBC 22.3 H RBC 2.62 L Hgb 8.0 L Hct 24.5 L MCHC RDW 16.0 H Seg Neuts % (Manual) 90.0 H Lymphocytes % (Manual) 4.0 L Seg Neutrophils # Man 20.1 H Lymphocytes # (Manual) 0.9 L PT 17.1 H INR 1.35 H POC ABG pCO2 POC ABG pO2 VBG pH Sodium 133 L Potassium 2.8 L* Chloride 94.5 L Carbon Dioxide 11 L BUN 69 H Creatinine 5.0 H Glucose 362 H POC Glucose Lactic Acid Calcium 7.4 L Phosphorus Magnesium Total Creatine Kinase Troponin T 0.116 H* Total Protein 6.2 L Albumin 2.1 L Cholesterol 26 L LDL Cholesterol Direct 4 L HDL Cholesterol 7 L Urine WBC (Auto) Crossmatch 10/11/18 10/11/18 10/11/18 05:21 05:21 05:21 WBC RBC Hgb Hct MCHC RDW Seg Neuts % (Manual) Lymphocytes % (Manual) Seg Neutrophils # Man Lymphocytes # (Manual) PT INR POC ABG pCO2 POC ABG pO2 VBG pH 7.226 L Sodium Potassium Chloride Carbon Dioxide BUN Creatinine Glucose POC Glucose Lactic Acid 7.40 H* Calcium Phosphorus Magnesium Total Creatine Kinase 1094 H Troponin T Total Protein Albumin Cholesterol LDL Cholesterol Direct HDL Cholesterol Urine WBC (Auto) Crossmatch 10/11/18 10/11/18 10/11/18 06:08 06:51 06:51 WBC RBC Hgb Hct MCHC RDW Seg Neuts % (Manual) Lymphocytes % (Manual) Seg Neutrophils # Man Lymphocytes # (Manual) PT INR POC ABG pCO2 POC ABG pO2 VBG pH Sodium 132 L Potassium 3.1 L Chloride 94.3 L Carbon Dioxide 10 L BUN 68 H Creatinine 5.8 H Glucose 402 H POC Glucose Lactic Acid 7.80 H* Calcium 7.8 L Phosphorus 4.80 H Magnesium 0.90 L* Total Creatine Kinase Troponin T Total Protein Albumin Cholesterol LDL Cholesterol Direct HDL Cholesterol Urine WBC (Auto) > 182.0 H Crossmatch 10/11/18 10/11/18 10/11/18 08:56 09:05 10:23 WBC RBC Hgb Hct MCHC RDW Seg Neuts % (Manual) Lymphocytes % (Manual) Seg Neutrophils # Man Lymphocytes # (Manual) PT INR POC ABG pCO2 POC ABG pO2 VBG pH Sodium Potassium Chloride Carbon Dioxide BUN Creatinine Glucose POC Glucose 367 H 305 H Lactic Acid Calcium Phosphorus Magnesium Total Creatine Kinase Troponin T Total Protein Albumin Cholesterol LDL Cholesterol Direct HDL Cholesterol Urine WBC (Auto) Crossmatch See Detail 10/11/18 10/11/18 10/11/18 11:12 12:17 12:18 WBC RBC Hgb Hct MCHC RDW Seg Neuts % (Manual) Lymphocytes % (Manual) Seg Neutrophils # Man Lymphocytes # (Manual) PT INR POC ABG pCO2 POC ABG pO2 VBG pH Sodium 135 L Potassium 2.8 L* Chloride 97.9 L Carbon Dioxide 14 L BUN 67 H Creatinine 6.0 H Glucose 246 H POC Glucose 299 H 261 H Lactic Acid Calcium 7.5 L Phosphorus Magnesium Total Creatine Kinase 1110 H Troponin T Total Protein Albumin Cholesterol LDL Cholesterol Direct HDL Cholesterol Urine WBC (Auto) Crossmatch 10/11/18 10/11/18 10/11/18 13:05 14:13 14:34 WBC RBC Hgb Hct MCHC RDW Seg Neuts % (Manual) Lymphocytes % (Manual) Seg Neutrophils # Man Lymphocytes # (Manual) PT INR POC ABG pCO2 POC ABG pO2 VBG pH Sodium 135 L Potassium 2.7 L* Chloride Carbon Dioxide 18 L BUN 68 H Creatinine 5.0 H Glucose 191 H POC Glucose 251 H 233 H Lactic Acid Calcium 7.1 L Phosphorus Magnesium Total Creatine Kinase Troponin T Total Protein Albumin Cholesterol LDL Cholesterol Direct HDL Cholesterol Urine WBC (Auto) Crossmatch 10/11/18 10/11/18 10/11/18 15:08 16:00 17:20 WBC RBC Hgb Hct MCHC RDW Seg Neuts % (Manual) Lymphocytes % (Manual) Seg Neutrophils # Man Lymphocytes # (Manual) PT INR POC ABG pCO2 POC ABG pO2 VBG pH Sodium Potassium Chloride Carbon Dioxide BUN Creatinine Glucose POC Glucose 213 H 224 H 187 H Lactic Acid Calcium Phosphorus Magnesium Total Creatine Kinase Troponin T Total Protein Albumin Cholesterol LDL Cholesterol Direct HDL Cholesterol Urine WBC (Auto) Crossmatch 10/11/18 10/11/18 10/11/18 17:53 17:58 18:12 WBC RBC Hgb Hct MCHC RDW Seg Neuts % (Manual) Lymphocytes % (Manual) Seg Neutrophils # Man Lymphocytes # (Manual) PT INR POC ABG pCO2 28.2 L POC ABG pO2 60 L VBG pH Sodium Potassium Chloride Carbon Dioxide BUN Creatinine Glucose POC Glucose 189 H Lactic Acid Calcium Phosphorus Magnesium Total Creatine Kinase 933 H Troponin T Total Protein Albumin Cholesterol LDL Cholesterol Direct HDL Cholesterol Urine WBC (Auto) Crossmatch 10/11/18 10/11/18 10/11/18 18:58 20:16 21:10 WBC RBC Hgb Hct MCHC RDW Seg Neuts % (Manual) Lymphocytes % (Manual) Seg Neutrophils # Man Lymphocytes # (Manual) PT INR POC ABG pCO2 POC ABG pO2 VBG pH Sodium Potassium Chloride Carbon Dioxide BUN Creatinine Glucose POC Glucose 192 H 179 H 160 H Lactic Acid Calcium Phosphorus Magnesium Total Creatine Kinase Troponin T Total Protein Albumin Cholesterol LDL Cholesterol Direct HDL Cholesterol Urine WBC (Auto) Crossmatch 10/11/18 10/11/18 10/11/18 22:14 22:42 23:09 WBC RBC Hgb Hct MCHC RDW Seg Neuts % (Manual) Lymphocytes % (Manual) Seg Neutrophils # Man Lymphocytes # (Manual) PT INR POC ABG pCO2 POC ABG pO2 VBG pH Sodium 136 L Potassium 2.9 L* Chloride Carbon Dioxide 17 L BUN 61 H Creatinine 4.0 H Glucose 122 H POC Glucose 145 H 129 H Lactic Acid Calcium 6.6 L Phosphorus Magnesium Total Creatine Kinase Troponin T Total Protein Albumin Cholesterol LDL Cholesterol Direct HDL Cholesterol Urine WBC (Auto) Crossmatch 10/11/18 10/11/18 10/11/18 Unknown Unknown Unknown WBC RBC Hgb Hct MCHC RDW Seg Neuts % (Manual) Lymphocytes % (Manual) Seg Neutrophils # Man Lymphocytes # (Manual) PT INR POC ABG pCO2 POC ABG pO2 VBG pH Sodium 133 L Potassium 3.0 L Chloride 93.7 L Carbon Dioxide 9 L* BUN 67 H Creatinine 5.9 H Glucose 406 H POC Glucose Lactic Acid 8.50 H* Calcium 7.6 L Phosphorus Magnesium Total Creatine Kinase Troponin T Total Protein Albumin Cholesterol LDL Cholesterol Direct HDL Cholesterol Urine WBC (Auto) > 182.0 H Crossmatch 10/12/18 10/12/18 10/12/18 00:18 01:42 02:03 WBC RBC Hgb Hct MCHC RDW Seg Neuts % (Manual) Lymphocytes % (Manual) Seg Neutrophils # Man Lymphocytes # (Manual) PT INR POC ABG pCO2 POC ABG pO2 VBG pH Sodium Potassium Chloride Carbon Dioxide BUN Creatinine Glucose POC Glucose 113 H 51 L 116 H Lactic Acid Calcium Phosphorus Magnesium Total Creatine Kinase Troponin T Total Protein Albumin Cholesterol LDL Cholesterol Direct HDL Cholesterol Urine WBC (Auto) Crossmatch 10/12/18 10/12/18 10/12/18 03:09 04:20 04:20 WBC 26.8 H RBC 2.22 L Hgb 6.7 L Hct 19.4 L* MCHC 35 H RDW 15.8 H Seg Neuts % (Manual) Lymphocytes % (Manual) Seg Neutrophils # Man Lymphocytes # (Manual) PT INR POC ABG pCO2 POC ABG pO2 VBG pH Sodium Potassium 2.6 L* Chloride Carbon Dioxide 20 L BUN 56 H Creatinine 4.0 H Glucose 134 H POC Glucose 129 H Lactic Acid Calcium 6.4 L Phosphorus Magnesium 1.30 L Total Creatine Kinase Troponin T Total Protein 5.8 L Albumin 1.8 L Cholesterol LDL Cholesterol Direct HDL Cholesterol Urine WBC (Auto) Crossmatch 10/12/18 10/12/18 10/12/18 04:22 05:25 06:25 WBC RBC Hgb Hct MCHC RDW Seg Neuts % (Manual) Lymphocytes % (Manual) Seg Neutrophils # Man Lymphocytes # (Manual) PT INR POC ABG pCO2 POC ABG pO2 VBG pH Sodium Potassium 2.7 L* Chloride Carbon Dioxide 19 L BUN 51 H Creatinine 3.6 H Glucose 113 H POC Glucose 186 H 131 H Lactic Acid Calcium 6.4 L Phosphorus Magnesium Total Creatine Kinase Troponin T Total Protein Albumin Cholesterol LDL Cholesterol Direct HDL Cholesterol Urine WBC (Auto) Crossmatch 10/12/18 10/12/18 10/12/18 07:34 08:28 09:29 WBC RBC Hgb Hct MCHC RDW Seg Neuts % (Manual) Lymphocytes % (Manual) Seg Neutrophils # Man Lymphocytes # (Manual) PT INR POC ABG pCO2 POC ABG pO2 VBG pH Sodium Potassium Chloride Carbon Dioxide BUN Creatinine Glucose POC Glucose 120 H 110 H 140 H Lactic Acid Calcium Phosphorus Magnesium Total Creatine Kinase Troponin T Total Protein Albumin Cholesterol LDL Cholesterol Direct HDL Cholesterol Urine WBC (Auto) Crossmatch 10/12/18 10/12/18 10/12/18 11:55 12:55 12:55 WBC RBC Hgb 7.1 L Hct 20.6 L MCHC RDW Seg Neuts % (Manual) Lymphocytes % (Manual) Seg Neutrophils # Man Lymphocytes # (Manual) PT INR POC ABG pCO2 POC ABG pO2 VBG pH Sodium 136 L Potassium 2.9 L* Chloride Carbon Dioxide 16 L BUN 48 H Creatinine 3.1 H Glucose 258 H POC Glucose 219 H Lactic Acid Calcium 6.3 L Phosphorus Magnesium Total Creatine Kinase Troponin T Total Protein Albumin Cholesterol LDL Cholesterol Direct HDL Cholesterol Urine WBC (Auto) Crossmatch 10/12/18 10/12/18 10/12/18 12:55 17:49 19:23 WBC RBC Hgb 7.7 L Hct 22.9 L MCHC RDW Seg Neuts % (Manual) Lymphocytes % (Manual) Seg Neutrophils # Man Lymphocytes # (Manual) PT INR POC ABG pCO2 POC ABG pO2 VBG pH Sodium Potassium Chloride Carbon Dioxide BUN Creatinine Glucose POC Glucose 344 H Lactic Acid Calcium Phosphorus Magnesium 4.80 H Total Creatine Kinase Troponin T Total Protein Albumin Cholesterol LDL Cholesterol Direct HDL Cholesterol Urine WBC (Auto) Crossmatch 10/12/18 10/13/18 10/13/18 22:21 00:15 05:28 WBC RBC Hgb Hct MCHC RDW Seg Neuts % (Manual) Lymphocytes % (Manual) Seg Neutrophils # Man Lymphocytes # (Manual) PT INR POC ABG pCO2 POC ABG pO2 VBG pH Sodium Potassium Chloride Carbon Dioxide BUN Creatinine Glucose POC Glucose 367 H 392 H 356 H Lactic Acid Calcium Phosphorus Magnesium Total Creatine Kinase Troponin T Total Protein Albumin Cholesterol LDL Cholesterol Direct HDL Cholesterol Urine WBC (Auto) Crossmatch 10/13/18 10/13/18 10/13/18 05:30 05:30 06:37 WBC 19.2 H RBC 2.67 L Hgb 7.9 L Hct 23.2 L MCHC RDW 16.4 H Seg Neuts % (Manual) Lymphocytes % (Manual) Seg Neutrophils # Man Lymphocytes # (Manual) PT INR POC ABG pCO2 POC ABG pO2 VBG pH Sodium 135 L Potassium 2.8 L* Chloride Carbon Dioxide 17 L BUN 37 H Creatinine 2.0 H Glucose 383 H POC Glucose 413 H Lactic Acid Calcium 6.6 L Phosphorus Magnesium Total Creatine Kinase Troponin T Total Protein Albumin Cholesterol LDL Cholesterol Direct HDL Cholesterol Urine WBC (Auto) Crossmatch 10/13/18 10/13/18 10/13/18 11:15 12:46 17:47 WBC RBC Hgb Hct MCHC RDW Seg Neuts % (Manual) Lymphocytes % (Manual) Seg Neutrophils # Man Lymphocytes # (Manual) PT INR POC ABG pCO2 POC ABG pO2 VBG pH Sodium Potassium 3.2 L Chloride Carbon Dioxide BUN Creatinine Glucose POC Glucose 220 H 181 H Lactic Acid Calcium Phosphorus Magnesium Total Creatine Kinase Troponin T Total Protein Albumin Cholesterol LDL Cholesterol Direct HDL Cholesterol Urine WBC (Auto) Crossmatch 10/13/18 10/13/18 10/13/18 19:45 22:19 23:53 WBC RBC Hgb Hct MCHC RDW Seg Neuts % (Manual) Lymphocytes % (Manual) Seg Neutrophils # Man Lymphocytes # (Manual) PT INR POC ABG pCO2 POC ABG pO2 VBG pH Sodium Potassium Chloride Carbon Dioxide BUN Creatinine Glucose POC Glucose 185 H 153 H 152 H Lactic Acid Calcium Phosphorus Magnesium Total Creatine Kinase Troponin T Total Protein Albumin Cholesterol LDL Cholesterol Direct HDL Cholesterol Urine WBC (Auto) Crossmatch 10/14/18 10/14/18 10/14/18 02:38 04:36 04:36 WBC 19.8 H RBC 3.02 L Hgb 8.9 L Hct 26.1 L MCHC RDW 16.7 H Seg Neuts % (Manual) Lymphocytes % (Manual) Seg Neutrophils # Man Lymphocytes # (Manual) PT INR POC ABG pCO2 POC ABG pO2 VBG pH Sodium Potassium 2.9 L* Chloride 121.6 H Carbon Dioxide 16 L BUN 25 H Creatinine 1.6 H Glucose 117 H POC Glucose 142 H Lactic Acid Calcium 7.0 L Phosphorus Magnesium Total Creatine Kinase Troponin T Total Protein Albumin Cholesterol LDL Cholesterol Direct HDL Cholesterol Urine WBC (Auto) Crossmatch 10/14/18 10/14/18 10/14/18 04:36 09:45 10:59 WBC RBC Hgb Hct MCHC RDW Seg Neuts % (Manual) Lymphocytes % (Manual) Seg Neutrophils # Man Lymphocytes # (Manual) PT INR POC ABG pCO2 POC ABG pO2 VBG pH Sodium Potassium 3.2 L Chloride Carbon Dioxide BUN Creatinine Glucose POC Glucose 110 H Lactic Acid Calcium Phosphorus Magnesium 1.20 L Total Creatine Kinase Troponin T Total Protein Albumin Cholesterol LDL Cholesterol Direct HDL Cholesterol Urine WBC (Auto) Crossmatch 10/14/18 10/14/18 10/14/18 14:22 17:41 22:58 WBC RBC Hgb Hct MCHC RDW Seg Neuts % (Manual) Lymphocytes % (Manual) Seg Neutrophils # Man Lymphocytes # (Manual) PT INR POC ABG pCO2 POC ABG pO2 VBG pH Sodium Potassium Chloride Carbon Dioxide BUN Creatinine Glucose POC Glucose 106 H 116 H 134 H Lactic Acid Calcium Phosphorus Magnesium Total Creatine Kinase Troponin T Total Protein Albumin Cholesterol LDL Cholesterol Direct HDL Cholesterol Urine WBC (Auto) Crossmatch 10/15/18 10/15/18 10/15/18 06:14 11:21 11:21 WBC 31.9 H RBC 2.99 L Hgb 8.6 L Hct 26.4 L MCHC RDW 16.9 H Seg Neuts % (Manual) Lymphocytes % (Manual) Seg Neutrophils # Man Lymphocytes # (Manual) PT INR POC ABG pCO2 POC ABG pO2 VBG pH Sodium Potassium Chloride 111.6 H Carbon Dioxide 14 L BUN Creatinine Glucose 175 H POC Glucose 184 H Lactic Acid Calcium 7.2 L Phosphorus Magnesium Total Creatine Kinase Troponin T Total Protein Albumin Cholesterol LDL Cholesterol Direct HDL Cholesterol Urine WBC (Auto) Crossmatch 10/15/18 11:27 WBC RBC Hgb Hct MCHC RDW Seg Neuts % (Manual) Lymphocytes % (Manual) Seg Neutrophils # Man Lymphocytes # (Manual) PT INR POC ABG pCO2 POC ABG pO2 VBG pH Sodium Potassium Chloride Carbon Dioxide BUN Creatinine Glucose POC Glucose 197 H Lactic Acid Calcium Phosphorus Magnesium Total Creatine Kinase Troponin T Total Protein Albumin Cholesterol LDL Cholesterol Direct HDL Cholesterol Urine WBC (Auto) Crossmatch Allied health notes reviewed: nursing
[2018-10-15 13:00] LABS: Basophils % (Manual) 0 % (0.0-1.8); Eosinophils % (Manual) 0 % (0.0-4.3); Monocytes % (Manual) 0 % (0.0-7.3); Total Cells Counted 100
[2018-10-15] MEDS ORDERED: NACL 0.45% IV SCH (13:00)
[2018-10-15] MEDS ORDERED: KCL IV SCH (13:00)
[2018-10-15] MEDS ORDERED: SODIUM BICARBONATE IV SCH (13:00)
[2018-10-15 13:01] LABS: Burr Cells Few; Giant Platelets Few; Platelet Estimate Consistent w Auto; Target Cells Few
--- NOTE | 2018-10-15 13:01 | Progress Note ---
Assessment and Plan Assessment and plan: Dinora is a 58 year old male presenting from [place] ([facility]) Pt is a very poor historian, per medical records he has history of paroxysmal atrial fibrillation, hypertension, diabetes, Colosotomy and lack of coordination with Muscle weakness anal abscess with recent debridement in Aug 2018, chronic indwelling suarez who was referred to the ER from his longterm for evaluation of fever and low blood pressure and altered mental status. In the ER he was found to have urosepsis, acute renal failure and DKA with elevated troponin. Patient was unable to provided any information due to incoherence of his thoughts he complained of dry mouth per the ED Physician. He denies any chest pain, palpitations or shortness of breath. A report from the [place] revealed that he was noted this morning to be confused with shivering. Labs done the day prior to admission revealed a wbc of 31.4 per the staff. The patient in the ED was started on sepsis protocol and also pressers labs from longterm done 10/10/17: wbc 31.4, hgb 9.1, plt 271 Acute Toxic metabolic encephalopathy Septic Shock Severe Sepsis Hyperosmolar NonKetotic Hyperglycemia Uncontrolled DM MALCOLM secondary to vasomotor nephropathy Severe acute blood loss anemia on anemia of chronic disease Metabolic acidosis Colostomy Unstagable scaral pressure ulcer POA Afib with RVR Troponemia- Type 2 NSTEMI Hypokalemia Severe Protein calorie malnutrition Plan Continue supportive care Cont long acting insulin Discontinued Heparin drip in the setting of severe anemia- will start warfarin and monitor INR considering GI finding repeat chest xray TTE without any vegetation noted Renal function improvement noted Hgb improved following 3 units PRBC GI input noted. No high risk bleed risk noted. Transfuse PRBC as needed Cardiology, cardiology teacher, ID, SURGICAL, nephrology input noted Sepsis protocol ET consult NOTED Wean pressors as tolerated PICC team for Access and D/C Right femoral Line. Replace electrolytes Fall precautions DVT/GI prophy Plan discussed with patient and also with Cardiology History Interval history: Patient seen and examined, improving mentation, NON PRODUCTIVE COUGH TODAY. NO CHEST PAIN. NO NAUSEA OR VOMITING Hospitalist Physical - Physical exam Narrative exam: General appearance: Present: Intermittent cough - EENT Eyes: Present: PERRL, EOM intact ENT: clear oral mucosa - Neck Neck: Present: supple, normal ROM - Respiratory Respiratory effort: normal Respiratory: bilateral: diminished - Cardiovascular Heart Sounds: Present: S1 & S2, gallop. Absent: systolic murmur - Extremities Extremities: no ischemia, pulses intact, pulses symmetrical, No edema, normal temperature, normal color Peripheral Pulses: within normal limits - Abdominal General gastrointestinal: Present: non-tender, non-distended, other (good pink colostomy site) - Integumentary Integumentary: Present: warm wound vac in place - Musculoskeletal Musculoskeletal: generalized weakness - Psychiatric Psychiatric: agitated - Neurologic Neurologic: aao x3. moves ext - Allied Health Allied health notes reviewed: nursing - Constitutional Vitals: Temp Pulse Resp BP Pulse Ox 97.9 F 99 H 18 93/59 93 10/15/18 07:14 10/15/18 08:53 10/15/18 08:14 10/15/18 07:14 10/15/18 08:14 General appearance: Present: mild distress, disheveled Results - Labs CBC & Chem 7: 10/15/18 11:21 10/15/18 11:21 Labs: Laboratory Last Values WBC 31.9 K/mm3 (4.5-11.0) H 10/15/18 11:21 RBC 2.99 M/mm3 (3.65-5.03) L 10/15/18 11:21 Hgb 8.6 gm/dl (11.8-15.2) L 10/15/18 11:21 Hct 26.4 % (35.5-45.6) L 10/15/18 11:21 MCV 88 fl (84-94) 10/15/18 11:21 MCH 29 pg (28-32) 10/15/18 11:21 MCHC 33 % (32-34) 10/15/18 11:21 RDW 16.9 % (13.2-15.2) H 10/15/18 11:21 Plt Count 234 K/mm3 (140-440) 10/15/18 11:21 Add Manual Diff Complete 10/11/18 05:21 Total Counted 100 10/11/18 05:21 Seg Neutrophils % Power Lineman 10/15/18 11:21 Seg Neuts % (Manual) 90.0 % (40.0-70.0) H 10/11/18 05:21 Band Neutrophils % 6.0 % 10/11/18 05:21 Lymphocytes % (Manual) 4.0 % (13.4-35.0) L 10/11/18 05:21 Reactive Lymphs % (Man) 0 % 10/11/18 05:21 Monocytes % (Manual) 0 % (0.0-7.3) 10/11/18 05:21 Eosinophils % (Manual) 0 % (0.0-4.3) 10/11/18 05:21 Basophils % (Manual) 0 % (0.0-1.8) 10/11/18 05:21 Metamyelocytes % 0 % 10/11/18 05:21 Myelocytes % 0 % 10/11/18 05:21 Promyelocytes % 0 % 10/11/18 05:21 Blast Cells % 0 % 10/11/18 05:21 Nucleated RBC % Not Reportable 10/11/18 05:21 Seg Neutrophils # Man 20.1 K/mm3 (1.8-7.7) H 10/11/18 05:21 Band Neutrophils # 1.3 K/mm3 10/11/18 05:21 Lymphocytes # (Manual) 0.9 K/mm3 (1.2-5.4) L 10/11/18 05:21 Abs React Lymphs (Man) 0.0 K/mm3 10/11/18 05:21 Monocytes # (Manual) 0.0 K/mm3 (0.0-0.8) 10/11/18 05:21 Eosinophils # (Manual) 0.0 K/mm3 (0.0-0.4) 10/11/18 05:21 Basophils # (Manual) 0.0 K/mm3 (0.0-0.1) 10/11/18 05:21 Metamyelocytes # 0.0 K/mm3 10/11/18 05:21 Myelocytes # 0.0 K/mm3 10/11/18 05:21 Promyelocytes # 0.0 K/mm3 10/11/18 05:21 Blast Cells # 0.0 K/mm3 10/11/18 05:21 WBC Morphology Not Reportable 10/11/18 05:21 Hypersegmented Neuts Not Reportable 10/11/18 05:21 Hyposegmented Neuts Not Reportable 10/11/18 05:21 Hypogranular Neuts Not Reportable 10/11/18 05:21 Smudge Cells Not Reportable 10/11/18 05:21 Toxic Granulation Not Reportable 10/11/18 05:21 Toxic Vacuolation Not Reportable 10/11/18 05:21 Dohle Bodies Not Reportable 10/11/18 05:21 Pelger-Huet Anomaly Not Reportable 10/11/18 05:21 Lisa Rods Not Reportable 10/11/18 05:21 Platelet Estimate Appears normal 10/11/18 05:21 Clumped Platelets Not Reportable 10/11/18 05:21 Plt Clumps, EDTA Not Reportable 10/11/18 05:21 Large Platelets Not Reportable 10/11/18 05:21 Giant Platelets Not Reportable 10/11/18 05:21 Platelet Satelliting Not Reportable 10/11/18 05:21 Plt Morphology Comment Not Reportable 10/11/18 05:21 RBC Morphology Not Reportable 10/11/18 05:21 Dimorphic RBCs Not Reportable 10/11/18 05:21 Polychromasia Few 10/11/18 05:21 Hypochromasia Not Reportable 10/11/18 05:21 Poikilocytosis 2+ 10/11/18 05:21 Anisocytosis 2+ 10/11/18 05:21 Microcytosis Not Reportable 10/11/18 05:21 Macrocytosis Not Reportable 10/11/18 05:21 Spherocytes Not Reportable 10/11/18 05:21 Pappenheimer Bodies Not Reportable 10/11/18 05:21 Sickle Cells Not Reportable 10/11/18 05:21 Target Cells Not Reportable 10/11/18 05:21 Tear Drop Cells Not Reportable 10/11/18 05:21 Ovalocytes 1+ 10/11/18 05:21 Helmet Cells Not Reportable 10/11/18 05:21 [place] Bodies Not Reportable 10/11/18 05:21 Gaffney Rings Not Reportable 10/11/18 05:21 Greer Cells 2+ 10/11/18 05:21 Bite Cells Not Reportable 10/11/18 05:21 Crenated Cell Not Reportable 10/11/18 05:21 Elliptocytes Not Reportable 10/11/18 05:21 Acanthocytes (Spur) Few 10/11/18 05:21 Rouleaux Not Reportable 10/11/18 05:21 Hemoglobin C Crystals Not Reportable 10/11/18 05:21 Schistocytes Not Reportable 10/11/18 05:21 Malaria parasites Not Reportable 10/11/18 05:21 [place] Bodies Not Reportable 10/11/18 05:21 Hem Pathologist Commnt No 10/11/18 05:21 PT 17.1 Sec. (12.2-14.9) H 10/11/18 05:21 INR 1.35 (0.87-1.13) H 10/11/18 05:21 POC ABG pH 7.380 (7.35-7.45) 10/11/18 17:53 POC ABG pCO2 28.2 (35-45) L 10/11/18 17:53 POC ABG pO2 60 (80-105) L 10/11/18 17:53 POC ABG HCO3 16.7 10/11/18 17:53 POC ABG Total CO2 18 10/11/18 17:53 POC ABG O2 Sat 91 10/11/18 17:53 POC ABG Base Excess -8 10/11/18 17:53 VBG pH 7.226 (7.320-7.420) L 10/11/18 05:21 FiO2 2 % 10/11/18 17:53 Sodium 139 mmol/L (137-145) 10/15/18 11:21 Potassium 4.3 mmol/L (3.6-5.0) D 10/15/18 11:21 Chloride 111.6 mmol/L (98-107) H 10/15/18 11:21 Carbon Dioxide 14 mmol/L (22-30) L 10/15/18 11:21 Anion Gap 18 mmol/L 10/15/18 11:21 BUN 19 mg/dL (9-20) 10/15/18 11:21 Creatinine 1.5 mg/dL (0.8-1.5) 10/15/18 11:21 Estimated GFR 58 ml/min 10/15/18 11:21 BUN/Creatinine Ratio 13 % 10/15/18 11:21 Glucose 175 mg/dL (75-100) H 10/15/18 11:21 POC Glucose 197 (70-105) H 10/15/18 11:27 Lactic Acid 1.50 mmol/L (0.7-2.0) 10/12/18 04:20 Calcium 7.2 mg/dL (8.4-10.2) L 10/15/18 11:21 Phosphorus 4.80 mg/dL (2.5-4.5) H 10/11/18 06:51 Magnesium 1.20 mg/dL (1.7-2.3) L 10/14/18 04:36 Total Bilirubin 0.30 mg/dL (0.1-1.2) 10/12/18 04:20 AST 25 units/L (5-40) 10/12/18 04:20 ALT 10 units/L (7-56) 10/12/18 04:20 Alkaline Phosphatase 109 units/L (35-129) 10/12/18 04:20 Total Creatine Kinase 933 units/L (55-170) H 10/11/18 17:58 CK-MB (CK-2) 2.8 ng/mL (0.0-4.0) 10/11/18 17:58 CK-MB (CK-2) Rel Index 0.3 (0-4) 10/11/18 17:58 Troponin T 0.116 ng/mL (0.00-0.029) H* 10/11/18 05:21 Total Protein 5.8 g/dL (6.3-8.2) L 10/12/18 04:20 Albumin 1.8 g/dL (3.9-5) L 10/12/18 04:20 Albumin/Globulin Ratio 0.5 % 10/12/18 04:20 Triglycerides 120 mg/dL (2-149) 10/11/18 05:21 Cholesterol 26 mg/dL (50-199) L 10/11/18 05:21 LDL Cholesterol Direct 4 mg/dL (50-130) L 10/11/18 05:21 HDL Cholesterol 7 mg/dL (40-59) L 10/11/18 05:21 Cholesterol/HDL Ratio 3.71 % 10/11/18 05:21 Urine Color Christine (Yellow) 10/11/18 Unknown Urine Turbidity Turbid (Clear) 10/11/18 Unknown Urine pH 5.0 (5.0-7.0) 10/11/18 Unknown Ur Specific [place] 1.019 (1.003-1.030) 10/11/18 Unknown Urine Protein 100 mg/dl mg/dL (Negative) 10/11/18 Unknown Urine Glucose (UA) Neg mg/dL (Negative) 10/11/18 Unknown Urine Ketones Neg mg/dL (Negative) 10/11/18 Unknown Urine Blood Sm (Negative) 10/11/18 Unknown Urine Nitrite Neg (Negative) 10/11/18 Unknown Urine Bilirubin Neg (Negative) 10/11/18 Unknown Urine Urobilinogen < 2.0 mg/dL (<2.0) 10/11/18 Unknown Ur Leukocyte Esterase Lg (Negative) 10/11/18 Unknown Urine WBC (Auto) > 182.0 /HPF (0.0-6.0) H 10/11/18 Unknown Urine RBC (Auto) 57.0 /HPF (0.0-6.0) 10/11/18 Unknown U Epithel Cells (Auto) 1.0 /HPF (0-13.0) 10/11/18 06:08 Urine Bacteria (Auto) 3+ /HPF (Negative) 10/11/18 Unknown Urine WBC Clumps 3+ /HPF 10/11/18 Unknown Urine Mucus 2+ /HPF 10/11/18 Unknown Random Vancomycin 5.7 ug/mL (0-40.0) 10/13/18 05:30 Blood Type A POSITIVE 10/11/18 09:05 Antibody Screen Negative 10/11/18 09:05 Crossmatch See Detail 10/11/18 09:05 Nutrition/Malnutrition Assess - Dietary Evaluation Nutrition/Malnutrition Findings: Nutrition Notes Start: 10/12/18 12:55 Freq: Status: Active Protocol: Document 10/13/18 15:09 (Rec: 10/13/18 15:20 [email or web address]) Co-Sign 10/13/18 15:09 LP Nutrition Notes Initial or Follow up Reassessment Current Diagnosis Acute Kidney Injury Decubitus(Pressure Ulcer) Diabetes Hypertension Other Pertinent Diagnosis Sepsis, Stg. 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 Pt passed bedside swallow and had diet advancement to CHO consistent yesterday (10/12/18). Pt currently on NPO until EGT is performed. Percent of energy/protein needs met: 0%/0% Burn Absent Trauma Absent Current % PO Negligible #1 Nutrition Diagnosis Inadequate oral intake Diagnosis Progress(for reassessment Continues documentation) Is patient on ventilator? No Is Patient Ambulatory and/or Out of Bed No REE-([facility]-confined to bed) [phone] Calculation Used for Recommendations [facility] Additional Notes Pro: 94-156g/day (1.2-2 g/kg BW) Fluid: 1 ml/kcal Nutrition Intervention Change Diet Order: Advance to consistent CHO diet if medically feasible Add Supplement/Snack (indicate name/kcal Norm BID for wound healing if /protein ) diet is advanced Provides kCal: 190 Provides Protein (gm) 5 Goal #1 Diet advancement if medically feasible Anticipated Discharge Needs: Unknown at this time Follow-Up By: 10/16/18 Additional Comments F/U for diet advancement/ PO intake
--- NOTE | 2018-10-15 14:44 | XRay Report ---
FINAL REPORT EXAM: XR CHEST 1V AP HISTORY: PNEUMONIA TECHNIQUE: Frontal chest radiograph. PRIORS: 10/11/2018. FINDINGS: The cardiomediastinal silhouette is normal. Focal right lower lobe consolidation is seen. Small to moderate right pleural effusion is seen. No pneumothorax. No acute osseous abnormality. IMPRESSION: Small to moderate right pleural effusion. Right lower lobe opacities may reflect atelectasis versus p neumonia.
[2018-10-15] MEDS ORDERED: NACL 0.9% 500 ML 500 ML ONE (14:45)
[2018-10-15] MEDS ORDERED: VANCOMYCIN/NS 1 GM/250 ML 1 GM/250 ML BAG IV ONE (15:00)
[2018-10-15] MEDS: NACL 0.9% 1000 ML 1,000 ML IV SCH ×4 (16:40→19:57)
[2018-10-15 16:55] LABS: INR 2.4 (0.87-1.13)
[2018-10-15] MEDS: LEVOPHED DRIP 4 MG/NS 250 ML 4 MG/250 ML BAG IV SCH (17:20)
--- NOTE | 2018-10-15 17:45 | XRay Report ---
FINAL REPORT EXAM: XR CHEST 1V AP HISTORY: Verify Right IJ TLC TECHNIQUE: Frontal chest radiograph. PRIORS: 10/15/2018. FINDINGS: Right IJ central venous catheter tip projects in the lower SVC. Cardiomegaly is unchanged. Right lower lobe opacities are improved. Ground-glass opacities in the left lower lobe are unchanged. Unchanged small to moderate right pleural effusion. No pneumothorax. No acute osseous abnormality. IMPRESSION: 1. Right IJ central venous catheter placement with the tip lying in the lower SVC. 2. Mild improved right lower lobe atelectasis versus pneumonia. Unchanged right pleural effusion. Unc hanged left lower lobe atelectasis versus pneumonia.
--- NOTE | 2018-10-15 17:57 | Procedure Note ---
Date of procedure: 10/15/18 Pre-op diagnosis: sepsis Post-op diagnosis: same (sepsis) Procedure: Right IJ Central Line Placement under Ultrasound Guidance. Patient prepped and draped in the usual sterile fashion. Timeout taken to verify correct procedure, patient, and operative site. Ultrasound used to localize the right Internal Jugular Vein. Local anesthesia obtained with Lidocaine 1%. The seldinger technique was utilized to access the RIJV under ultrasound guidance without difficulty. A scalpel was used to incise the skin, and a dilator was passed over the guidewire and removed, and a triple lumen catheter was subsequently advanced into the RIJV without difficulty. The guidewire was then removed. The triple lumen catheter was then sewn in place, and a biopatch placed at the entry side. All 3 ports flush and draw with ease. Postoperative Chest x ray does not reveal Pneumothorax. Tip of triple lumen catheter is in SVC. Complications None. . Anesthesia: local Surgeon: DAVID CHU Estimated blood loss: minimal Condition: critical Disposition: ICU
[2018-10-15] MEDS: COUMADIN PO SCH (18:52)
[2018-10-15] MEDS: SODIUM BICARBONATE PO SCH ×2 (22:16)
[2018-10-15] MEDS: LANTUS SUB-Q SCH (22:18)
[2018-10-16] MEDS: CARDIZEM PO SCH ×4 (00:29→19:39)
[2018-10-16] MEDS: HumaLOG SUB-Q SCH ×4 (00:30→19:39)
[2018-10-16] MEDS: MAXIPIME/NS 2 GM/100 ML 2 GM/100 ML BAG IV SCH ×3 (01:18→21:26)
[2018-10-16] MEDS: MORPHINE IV PRN (02:10)
[2018-10-16] MEDS: DUONEB *Not for PRN Use IH SCH ×4 (02:57→20:55)
[2018-10-16 05:41] LABS: Hematocrit 27.7 % (35.5-45.6); Hemoglobin 8.7 gm/dl (11.8-15.2); Mean Corpuscular HGB Conc 32 % (32-34); Mean Corpuscular Volume 93 fl (84-94); Platelet Count 263 K/mm3 (140-440); Red Blood Count 2.99 M/mm3 (3.65-5.03); Red Cell Distribution Width 17.9 % (13.2-15.2)
[2018-10-16 05:55] LABS: INR 1.9 (0.87-1.13)
[2018-10-16 05:57] LABS: BUN/Creatinine Ratio 12; Blood Urea Nitrogen 16 mg/dL (9-20); Calcium 6.7 mg/dL (8.4-10.2); Hemolysis Index 7
[2018-10-16] MEDS: FLAGYL 500 MG/100 ML 500 MG/100 ML BAG IV SCH ×3 (10:02→21:27)
[2018-10-16] MEDS: PROTONIX PO SCH (10:11)
[2018-10-16] MEDS: SODIUM BICARBONATE PO SCH ×2 (10:25→21:27)
--- NOTE | 2018-10-16 11:19 | Progress Note ---
Assessment and Plan Impression: * Acute kidney secondary to ATN * Sepsis - ?urinary source --Blood cx - NGTD --Urine cx - greater than 2 organisms * Metabolic acidosis secondary to lactic acidosis * UTI * Hypokalemia * hypomagnesemia * Anemia Plan: * Renal function improved - SCr trending down * replete mag prn * restart k with Bicarb gtt, increase bicarb administration * add po sodium bicarb * Replete K prn - note orders * Abx per primary team * Transfusion per primary team - pRBC transfusion in progress * Replete lytes prn * Dose medications for renal function * Avoid potential nephrotoxins Subjective Date of service: 10/16/18 Principal diagnosis: Acute Toxic metabolic encephalopathy; Septic Shock; Severe Sepsis; DKA Interval history: resting well in bed today Objective - Exam Narrative Exam: General appearance: chronically ill EENT: other (poor dentition) Respiratory: Present: Clear to Ascultation Cardiology: regular, tachycardia Gastrointestinal: other (ostomy) Integumentary: no rash Psychiatric: cooperative - Vital Signs Vital signs: Vital Signs - 12hr 10/15/18 10/15/18 10/15/18 23:20 23:30 23:40 Temperature Pulse Rate 93 H 96 H 96 H Pulse Rate [ Anterior Bilateral Throughout] Respiratory 28 H 31 H 25 H Rate Respiratory Rate [Anterior Bilateral Throughout] Blood Pressure 121/72 110/71 109/71 O2 Sat by Pulse 76 L 100 97 Oximetry 10/15/18 10/16/18 10/16/18 23:50 00:00 00:10 Temperature 98.2 F Pulse Rate 93 H 92 H 94 H Pulse Rate [ Anterior Bilateral Throughout] Respiratory 27 H 31 H 30 H Rate Respiratory Rate [Anterior Bilateral Throughout] Blood Pressure 100/64 104/66 112/61 O2 Sat by Pulse 99 97 98 Oximetry 10/16/18 10/16/18 10/16/18 00:20 00:30 00:40 Temperature Pulse Rate 94 H 95 H 92 H Pulse Rate [ Anterior Bilateral Throughout] Respiratory 30 H 28 H 25 H Rate Respiratory Rate [Anterior Bilateral Throughout] Blood Pressure 95/52 99/72 103/67 O2 Sat by Pulse 96 96 97 Oximetry 10/16/18 10/16/18 10/16/18 00:50 01:00 01:10 Temperature Pulse Rate 95 H 94 H 91 H Pulse Rate [ Anterior Bilateral Throughout] Respiratory 20 25 H 28 H Rate Respiratory Rate [Anterior Bilateral Throughout] Blood Pressure 103/67 103/67 103/67 O2 Sat by Pulse 97 98 98 Oximetry 10/16/18 10/16/18 10/16/18 01:20 01:30 01:40 Temperature Pulse Rate 93 H 93 H 93 H Pulse Rate [ Anterior Bilateral Throughout] Respiratory 28 H 22 17 Rate Respiratory Rate [Anterior Bilateral Throughout] Blood Pressure 118/70 119/67 113/58 O2 Sat by Pulse 98 98 98 Oximetry 10/16/18 10/16/18 10/16/18 01:50 02:00 02:10 Temperature Pulse Rate 93 H 93 H 94 H Pulse Rate [ Anterior Bilateral Throughout] Respiratory 31 H 32 H 32 H Rate Respiratory Rate [Anterior Bilateral Throughout] Blood Pressure 113/67 103/53 123/71 O2 Sat by Pulse 97 95 95 Oximetry 10/16/18 10/16/18 10/16/18 02:20 02:30 02:40 Temperature Pulse Rate 91 H 92 H 93 H Pulse Rate [ Anterior Bilateral Throughout] Respiratory 31 H 28 H 25 H Rate Respiratory Rate [Anterior Bilateral Throughout] Blood Pressure 112/66 111/63 97/53 O2 Sat by Pulse 96 99 99 Oximetry 10/16/18 10/16/18 10/16/18 02:50 02:58 03:00 Temperature Pulse Rate 92 H 91 H Pulse Rate [ 92 H Anterior Bilateral Throughout] Respiratory 24 21 Rate Respiratory 23 Rate [Anterior Bilateral Throughout] Blood Pressure 113/67 116/68 O2 Sat by Pulse 98 99 Oximetry 10/16/18 10/16/18 10/16/18 03:10 03:20 03:30 Temperature Pulse Rate 93 H 95 H 96 H Pulse Rate [ Anterior Bilateral Throughout] Respiratory 31 H 29 H 25 H Rate Respiratory Rate [Anterior Bilateral Throughout] Blood Pressure 119/69 119/77 119/68 O2 Sat by Pulse 100 100 100 Oximetry 10/16/18 10/16/18 10/16/18 03:40 03:50 03:58 Temperature 99.6 F Pulse Rate 93 H 98 H Pulse Rate [ Anterior Bilateral Throughout] Respiratory 28 H 24 Rate Respiratory Rate [Anterior Bilateral Throughout] Blood Pressure 119/67 107/64 O2 Sat by Pulse 99 99 Oximetry 10/16/18 10/16/18 10/16/18 04:00 04:10 04:20 Temperature Pulse Rate 97 H 94 H 97 H Pulse Rate [ Anterior Bilateral Throughout] Respiratory 31 H 36 H 28 H Rate Respiratory Rate [Anterior Bilateral Throughout] Blood Pressure 107/63 92/65 92/54 O2 Sat by Pulse 100 99 99 Oximetry 10/16/18 10/16/18 10/16/18 04:30 04:40 04:50 Temperature Pulse Rate 96 H 101 H 97 H Pulse Rate [ Anterior Bilateral Throughout] Respiratory 38 H 34 H 36 H Rate Respiratory Rate [Anterior Bilateral Throughout] Blood Pressure 99/61 112/73 114/70 O2 Sat by Pulse 99 100 100 Oximetry 10/16/18 10/16/18 10/16/18 05:00 05:10 05:20 Temperature Pulse Rate 99 H 98 H 98 H Pulse Rate [ Anterior Bilateral Throughout] Respiratory 17 33 H 32 H Rate Respiratory Rate [Anterior Bilateral Throughout] Blood Pressure 107/63 107/66 103/62 O2 Sat by Pulse 100 100 99 Oximetry 10/16/18 10/16/18 10/16/18 05:30 05:40 05:50 Temperature Pulse Rate 97 H 97 H 107 H Pulse Rate [ Anterior Bilateral Throughout] Respiratory 30 H 29 H 29 H Rate Respiratory Rate [Anterior Bilateral Throughout] Blood Pressure 108/60 103/60 112/70 O2 Sat by Pulse 98 99 99 Oximetry 10/16/18 10/16/18 10/16/18 06:00 06:10 06:20 Temperature Pulse Rate 108 H 106 H 108 H Pulse Rate [ Anterior Bilateral Throughout] Respiratory 31 H 35 H 32 H Rate Respiratory Rate [Anterior Bilateral Throughout] Blood Pressure 111/66 100/64 112/67 O2 Sat by Pulse 99 98 99 Oximetry 10/16/18 10/16/18 10/16/18 06:30 06:40 06:50 Temperature Pulse Rate 106 H 111 H 111 H Pulse Rate [ Anterior Bilateral Throughout] Respiratory 32 H 32 H 31 H Rate Respiratory Rate [Anterior Bilateral Throughout] Blood Pressure 111/66 112/70 123/67 O2 Sat by Pulse 99 99 100 Oximetry 10/16/18 10/16/18 10/16/18 07:00 07:10 07:20 Temperature Pulse Rate 112 H 112 H 112 H Pulse Rate [ Anterior Bilateral Throughout] Respiratory 36 H 33 H 31 H Rate Respiratory Rate [Anterior Bilateral Throughout] Blood Pressure 105/73 108/64 96/75 O2 Sat by Pulse 100 100 100 Oximetry 10/16/18 10/16/1819 07:30 07:40 07:50 Temperature Pulse Rate 113 H 112 H Pulse Rate [ Anterior Bilateral Throughout] Respiratory 31 H 23 23 Rate Respiratory Rate [Anterior Bilateral Throughout] Blood Pressure 111/68 109/69 100/57 O2 Sat by Pulse 100 100 98 Oximetry 10/16/18 08:00 Temperature Pulse Rate 110 H Pulse Rate [ Anterior Bilateral Throughout] Respiratory 30 H Rate Respiratory Rate [Anterior Bilateral Throughout] Blood Pressure 97/58 O2 Sat by Pulse 95 Oximetry - Lab 10/16/18 05:08 10/16/18 05:08 Most recent lab results Calcium 6.7 mg/dL (8.4-10.2) L 10/16/18 05:08 Phosphorus 4.80 mg/dL (2.5-4.5) H 10/11/18 06:51 Magnesium 1.50 mg/dL (1.7-2.3) L 10/16/18 05:08 Medications & Allergies - Medications Allergies/Adverse Reactions: Allergies No Known Allergies Allergy (Unverified 10/11/18 05:00) Home Medications: Home Medications Medication Instructions Recorded Confirmed Last Taken Type Acetaminophen [Acetaminophen ER] 650 mg PO Q6H PRN 10/11/18 10/11/18 Unknown History Allopurinol 300 mg PO QDAY 10/11/18 10/11/18 Unknown History Amlodipine Besylate [Norvasc] 5 mg PO DAILY 10/11/18 10/11/18 Unknown History Atorvastatin [Lipitor Tab] 80 mg PO QHS 10/11/18 10/11/18 Unknown History Calcium Carbonate [Calcium Antacid] 200 mg PO TID 10/11/18 10/11/18 Unknown History Collagenase Clostridium Hist. 1 applic TP BID 10/11/18 10/11/18 Unknown History [Santyl] Collagenase Clostridium Hist. 1 applic TP QPM 10/11/18 10/11/18 Unknown History [Santyl] HYDROcodone/APAP 7.5-325 [Hephzibah 1 each PO Q4HR PRN 10/11/18 10/11/18 Unknown History 7.5/325] Metformin HCl [Glucophage] 500 mg PO BID 10/11/18 10/11/18 Unknown History Mirtazapine [Remeron] 15 mg PO HS 10/11/18 10/11/18 Unknown History Sulfamethoxazole/Trimethoprim 1 each PO BID 10/11/18 10/11/18 Unknown History [Bactrim DS TAB] Active Medications: Generic Name Dose Route Start Last Admin Trade Name Freq PRN Reason Stop Dose Admin Acetaminophen 650 mg 10/12/18 06:45 Tylenol PO Q4H PRN Pain, Mild (1-3) Albuterol 2.5 mg 10/11/18 08:21 Proventil IH Q3HRT PRN Shortness Of Breath Albuterol/Ipratropium 1 ampul 10/11/18 14:00 10/16/18 08:54 Duoneb *Not For Prn Use* IH 1 ampul Q6HRT [facility] Administration Dextrose 0 ml 10/11/18 06:14 10/12/18 01:48 D50w (25gm) Syringe IV 20 ml ONCE PRN Administration Hypoglycemia Diltiazem HCl 30 mg 10/13/18 18:00 10/16/18 08:15 Cardizem PO Not Given Q6HR [facility] Metronidazole 500 mg in 100 mls @ 100 mls/hr 10/11/18 14:00 10/16/18 10:02 Flagyl 500 Mg/100 Ml IV 100 mls/hr Q8HR [facility] Administration Protocol Cefepime HCl 2 gm in 100 mls @ 200 mls/hr 10/14/18 10:00 10/16/18 10:02 Maxipime/Ns 2 Gm/100 Ml IV 200 mls/hr Q12HR [facility] Administration Protocol Sodium Bicarbonate 50 meq/ 1,060 mls @ 100 mls/hr 10/15/18 13:00 10/16/18 00:00 Potassium Chloride 20 meq/ IV 100 mls/hr Sodium Chloride DIRECT [facility] Infusion Norepinephrine 4 mg in 250 mls @ 7.5 mls/hr 10/15/18 17:00 10/16/18 03:00 Levophed Drip 4 Mg/Ns 250 Ml IV Infused TITR FR[facility] Titration Protocol 2 MCG/MIN Sodium Chloride 1,000 mls @ 999 mls/hr 10/15/18 17:00 10/15/18 22:15 Nacl 0.9% 1000 Ml IV 10/18/18 18:01 Infused BOLUS [facility] Infusion Magnesium Sulfate 2 gm in 50 mls @ 25 mls/hr 10/16/18 11:17 Magnesium Sulfate 2gm/50ml IV 10/16/18 13:16 ONCE ONE Insulin Glargine 20 units 10/13/18 22:00 10/15/18 22:18 Lantus SUB-Q 20 units QHS [facility] Administration Insulin Human Lispro 0 unit 10/12/18 09:00 10/16/18 08:25 Humalog SUB-Q Not Given Q6HR [facility] Protocol Morphine Sulfate 4 mg 10/12/18 22:30 10/16/18 02:10 Morphine IV 4 mg Q4H PRN Administration Pain , Severe (7-10) Ondansetron HCl 4 mg 10/11/18 09:30 Zofran IV Q8H PRN Nausea And Vomiting Pantoprazole Sodium 40 mg 10/14/18 10:00 10/16/18 10:11 Protonix PO 40 mg QDAY [facility] Administration Sodium Bicarbonate 1,300 mg 10/15/18 13:00 10/16/18 10:25 Sodium Bicarbonate PO 1,300 mg BID [facility] Administration Sodium Chloride 10 ml 10/11/18 10:00 10/15/18 22:18 Sodium Chloride Flush Syringe 10 Ml IV 10 ml BID [facility] Administration Sodium Chloride 10 ml 10/11/18 09:00 Sodium Chloride Flush Syringe 10 Ml IV PRN PRN LINE FLUSH Warfarin Sodium 2.5 mg 10/15/18 18:00 10/15/18 18:52 Coumadin PO 2.5 mg DAILY@1700 [facility] Administration
--- NOTE | 2018-10-16 11:36 | Progress Note ---
Assessment and Plan Currently stable cardiac status. Cont present cardiac management. The patient has been seen in conjunction with Dr. Hansen who agrees with the assessment and plan of care. - Patient Problems (1) Sepsis Current Visit: Yes Status: Acute (2) Hypotension Current Visit: Yes Status: Acute (3) Paroxysmal atrial fibrillation with RVR Current Visit: Yes Status: Chronic (4) UTI (urinary tract infection) Current Visit: Yes Status: Acute (5) Elevated troponin Current Visit: Yes Status: Acute (6) Acute renal failure Current Visit: Yes Status: Acute (7) Hyperglycemic hyperosmolar nonketotic coma Current Visit: Yes Status: Acute (8) Anemia Current Visit: Yes Status: Acute (9) Hypomagnesemia Current Visit: Yes Status: Acute (10) Hypokalemia Current Visit: Yes Status: Acute (11) Sacral decubitus ulcer Current Visit: Yes Status: Chronic Subjective Date of service: 10/16/18 Principal diagnosis: Acute Toxic metabolic encephalopathy; Septic Shock; Severe Sepsis; DKA Interval history: pt resting in bed, lethargic, no current cardiac complaints. in SR on telemetry. Objective Last Vital Signs Temp 99.6 F 10/16/18 03:58 Pulse 110 H 10/16/18 08:00 Resp 30 H 10/16/18 08:00 BP 97/58 10/16/18 08:00 Pulse Ox 95 10/16/18 08:00 - Physical Examination General: Other (lethargic) HEENT: Positive: Normocephaly, Mucus Membranes Moist Neck: Positive: neck supple, trachea midline Cardiac: Positive: Reg Rate and Rhythm, S1/S2 Lungs: Positive: Decreased Breath Sounds Neuro: Positive: Other (disoriented) Abdomen: Positive: Soft Extremities: Absent: edema - Labs and Meds Coagulation 10/15/18 10/16/18 Range/Units 16:06 05:08 PT 26.5 H 22.2 H (12.2-14.9) Sec. INR 2.40 H 1.90 H (0.87-1.13) CBC 10/15/18 10/16/18 Range/Units 11:21 05:08 WBC 31.9 H 29.6 H (4.5-11.0) K/mm3 RBC 2.99 L 2.99 L (3.65-5.03) M/mm3 Hgb 8.6 L 8.7 L (11.8-15.2) gm/dl Hct 26.4 L 27.7 L (35.5-45.6) % Plt Count 234 263 (140-440) K/mm3 Comprehensive Metabolic Panel 10/15/18 10/16/18 Range/Units 11:21 05:08 Sodium 139 141 (137-145) mmol/L Potassium 4.3 D 3.7 (3.6-5.0) mmol/L Chloride 111.6 H 119.9 H (98-107) mmol/L Carbon Dioxide 14 L 12 L (22-30) mmol/L BUN 19 16 (9-20) mg/dL Creatinine 1.5 1.3 (0.8-1.5) mg/dL Glucose 175 H 116 H (75-100) mg/dL Calcium 7.2 L 6.7 L (8.4-10.2) mg/dL - Imaging and Cardiology EKG: image reviewed Echo: report reviewed (EF 60-65%, mild TR. ) - EKG Sinus rhythms and dysrhythmias: sinus tachycardia - Allied health notes Allied health notes reviewed: nursing
[2018-10-16] MEDS ORDERED: MAGNESIUM SULFATE 2GM/50ML 2 GM/50 ML BAG IV ONE (13:00)
--- NOTE | 2018-10-16 13:32 | Progress Note ---
Assessment and Plan Cultures: 10/11/2018 blood culture: Beta Strep group C 2 of 4 bottles 10/11/2018 urine culture: mixed growth 10/13/2018 blood culture no growth A/P: 58-year-old male with diabetes mellitus, recent admission in August 2018 for an anal abscess, colostomy was sent to the emergency room from an SNF earlier this morning after he was noted to have a fever with shaking chills. Admitted with: #1 Severe sepsis with septic shock: fever resolved, was transiently on pressors overnight, stopped this am, leukocytosis not better at 29K. Source could be either Strep bacteremia +/- infected and necrotic sacral wound +/- UTI. - CT abd showed ?chronic colitis, small bilateral pleural effusions, ileus, anasarca, bilateral renal calculi. #2 Strep group C bacteremia: likely source infected and necrotic sacral wound. 10/11/2018 blood culture Beta Strep group C 2 of 4 bottles. Repeat blood culture 10/13 no growth. TTE no vegetation #3 Catheter associated urinary tract infection: POA. UA showing significant py uria. Suarez exchanged. Urine culture grew 10-100K mixed growth #4 Sacral decubitus ulcer, infected, stage 4: recent anal abscess status post debridement at [facility] in August 2018. Per surgery does not believe source of bacteremia is the infected decubitus. No bone exposed on exam. #5 Acute kidney injury/acute renal failure: Present on admission. Improving. #6 Elevated troponins: Cardiology on board. #7 Acute encephalopathy: probably from sepsis. better #8 Acute anemia: GI consulted. Recs: Monitor leukocytosis and BP - he was on pressors overnight Continue cefepime and flagyl for now Upon discharge will do ceftriaxone 2 g IV qday and flagyl 500 m PO TID for 3 weeks to cover Strep bacteremia and sacral wound infection. General surgery recommending wound VAC and off-loading Will follow MD Yaqu[facility] C: [phone] O: [phone] F: [phone] Subjective Date of service: 10/16/18 Principal diagnosis: Acute Toxic metabolic encephalopathy; Septic Shock; Severe Sepsis; DKA Interval history: Patient is alert, talking, following commands, no fever for 48h ROS: no fever, no chills, denies N/V/D, rash Objective - Exam Narrative Exam: Constitutional: Alert, cooperative. No acute distress on NC O2 Head, Ears, Nose: Normocephalic, atraumatic. External ears, nose normal Eyes: Conjunctivae/corneas clear. No icterus. No ptosis. Neck: Supple, no meningeal signs Oral: dentition poor, no thrush Cardiovascular: RRR Respiratory: Good air entry, clear to auscultation bilaterally GI: Soft, bowel sounds normal. +ostomy bag. +suarez Musculoskeletal: No pedal edema, no cyanosis. Large sacral wound with wound VAC Skin: No rash. Hem/Lymphatic: No palpable cervical or supraclavicular nodes. No lymphangitis Psych: Mood ok. Affect flat Neurological: Awake, alert, but not oriented. R IJ - Constitutional Vitals: Vital Signs Temp Pulse Resp BP Pulse Ox 99.6 F 114 H 29 H 95/53 99 10/16/18 03:58 10/16/18 12:50 10/16/18 12:50 10/16/18 13:09 10/16/18 12:50 Temperature -Last 24 Hours Temperature 99.6 F Temperature 98.2 F Temperature 98.8 F - Labs CBC & Chem 7: 10/16/18 05:08 10/16/18 05:08 Labs: Abnormal lab results 10/15/18 10/15/18 10/15/18 Range/Units 11:21 14:43 16:06 WBC (4.5-11.0) K/mm3 RBC (3.65-5.03) M/mm3 Hgb (11.8-15.2) gm/dl Hct (35.5-45.6) % RDW (13.2-15.2) % PT 26.5 H (12.2-14.9) Sec. INR 2.40 H (0.87-1.13) Chloride (98-107) mmol/L Carbon Dioxide (22-30) mmol/L Glucose (75-100) mg/dL POC Glucose 174 H (70-105) Calcium (8.4-10.2) mg/dL Magnesium 1.30 L (1.7-2.3) mg/dL 10/15/18 10/15/18 10/16/18 Range/Units 20:13 23:55 05:08 WBC 29.6 H (4.5-11.0) K/mm3 RBC 2.99 L (3.65-5.03) M/mm3 Hgb 8.7 L (11.8-15.2) gm/dl Hct 27.7 L (35.5-45.6) % RDW 17.9 H (13.2-15.2) % PT (12.2-14.9) Sec. INR (0.87-1.13) Chloride (98-107) mmol/L Carbon Dioxide (22-30) mmol/L Glucose (75-100) mg/dL POC Glucose 131 H 132 H (70-105) Calcium (8.4-10.2) mg/dL Magnesium (1.7-2.3) mg/dL 10/16/18 10/16/18 10/16/18 Range/Units 05:08 05:08 05:08 WBC (4.5-11.0) K/mm3 RBC (3.65-5.03) M/mm3 Hgb (11.8-15.2) gm/dl Hct (35.5-45.6) % RDW (13.2-15.2) % PT 22.2 H (12.2-14.9) Sec. INR 1.90 H (0.87-1.13) Chloride 119.9 H (98-107) mmol/L Carbon Dioxide 12 L (22-30) mmol/L Glucose 116 H (75-100) mg/dL POC Glucose (70-105) Calcium 6.7 L (8.4-10.2) mg/dL Magnesium 1.50 L (1.7-2.3) mg/dL 10/16/18 Range/Units 05:49 WBC (4.5-11.0) K/mm3 RBC (3.65-5.03) M/mm3 Hgb (11.8-15.2) gm/dl Hct (35.5-45.6) % RDW (13.2-15.2) % PT (12.2-14.9) Sec. INR (0.87-1.13) Chloride (98-107) mmol/L Carbon Dioxide (22-30) mmol/L Glucose (75-100) mg/dL POC Glucose 118 H (70-105) Calcium (8.4-10.2) mg/dL Magnesium (1.7-2.3) mg/dL
[2018-10-16] MEDS: SODIUM CHLORIDE FLUSH SYRINGE 10 ML IV SCH ×2 (13:53→21:27)
[2018-10-16] MEDS ORDERED: VANCOMYCIN 1,250 MG in NACL 0.9% 250ML 250 ML IV SCH (15:00)
[2018-10-16] MEDS: SODIUM BICARBONATE 150 MEQ, KCL 20 MEQ in D5W 1,000 ML IV SCH (16:57)
[2018-10-16] MEDS: LEVOPHED DRIP 4 MG/NS 250 ML 4 MG/250 ML BAG IV SCH (16:58)
[2018-10-16] MEDS: COUMADIN PO SCH (17:02)
--- NOTE | 2018-10-16 17:26 | Progress Note ---
Assessment and Plan Assessment and plan: Dinora is a 58 year old male presenting from [place] ([facility]) Pt is a very poor historian, per medical records he has history of paroxysmal atrial fibrillation, hypertension, diabetes, Colosotomy and lack of coordination with Muscle weakness anal abscess with recent debridement in Aug 2018, chronic indwelling suarez who was referred to the ER from his [facility] for evaluation of fever and low blood pressure and altered mental status. In the ER he was found to have urosepsis, acute renal failure and DKA with elevated troponin. Patient was unable to provided any information due to incoherence of his thoughts he complained of dry mouth per the ED Physician. He denies any chest pain, palpitations or shortness of breath. A report from the [place] revealed that he was noted this morning to be confused with shivering. Labs done the day prior to admission revealed a wbc of 31.4 per the staff. The patient in the ED was started on sepsis protocol and also pressers labs from [facility] done 10/10/17: wbc 31.4, hgb 9.1, plt 271 Source ?chronic colitis, small bilateral pleural effusions, ileus, anasarca, bilateral renal calculi. Acute Toxic metabolic encephalopathy Septic Shock Severe Sepsis Hyperosmolar NonKetotic Hyperglycemia Uncontrolled DM MALCOLM secondary to vasomotor nephropathy Severe acute blood loss anemia on anemia of chronic disease Metabolic acidosis Colostomy Unstagable scaral pressure ulcer POA Afib with RVR Troponemia- Type 2 NSTEMI Hypokalemia Severe Protein calorie malnutrition Plan Continue supportive care. Patient was placed on pressors transiently Cont long acting insulin Discontinued Heparin drip in the setting of severe anemia- will start warfarin and monitor INR considering GI finding repeat chest xray TTE without any vegetation noted Renal function improvement noted Hgb improved following 3 units PRBC GI input noted. No high risk bleed risk noted. Transfuse PRBC as needed Cardiology, dairy nutrition specialist, ID, SURGICAL, nephrology input noted Sepsis protocol ET consult NOTED Wean pressors as tolerated PICC team for Access and D/C Right femoral Line. Replace electrolytes Fall precautions DVT/GI prophy Plan discussed with patient and also with Cardiology The high probability of a clinically significant, sudden or life threatening deterioration of the [VASCULAR, INTEGUMENTARY] system(s) required my full and direct attention, intervention and personal management. The aggregate critical care time was [35] minutes. This time is in addition to time spent performing reported procedures but includes the following: [X] Data Review and interpretation [X] Patient assessment and monitoring of vital signs [X] Documentation [X] Medication orders and management History Interval history: Patient seen and examined, Was transfered back to the ICU due to shock state. Hospitalist Physical - Physical exam Narrative exam: General appearance: Present: Intermittent cough - EENT Eyes: Present: PERRL, EOM intact ENT: clear oral mucosa - Neck Neck: Present: supple, normal ROM - Respiratory Respiratory effort: normal Respiratory: bilateral: diminished - Cardiovascular Heart Sounds: Present: S1 & S2, gallop. Absent: systolic murmur - Extremities Extremities: no ischemia, pulses intact, pulses symmetrical, No edema, normal temperature, normal color Peripheral Pulses: within normal limits - Abdominal General gastrointestinal: Present: non-tender, non-distended, other (good pink colostomy site) - Integumentary Integumentary: Present: warm wound vac in place - Musculoskeletal Musculoskeletal: generalized weakness - Psychiatric Psychiatric: agitated - Neurologic Neurologic: aao x3. moves ext - Allied Health Allied health notes reviewed: nursing - Constitutional Vitals: Temp Pulse Resp BP Pulse Ox 99 F 104 H 22 88/48 97 10/16/18 12:00 10/16/18 15:22 10/16/18 15:22 10/16/18 15:10 10/16/18 15:10 General appearance: Present: mild distress, disheveled Results - Labs CBC & Chem 7: 10/16/18 05:08 10/16/18 05:08 Labs: Laboratory Last Values WBC 29.6 K/mm3 (4.5-11.0) H 10/16/18 05:08 RBC 2.99 M/mm3 (3.65-5.03) L 10/16/18 05:08 Hgb 8.7 gm/dl (11.8-15.2) L 10/16/18 05:08 Hct 27.7 % (35.5-45.6) L 10/16/18 05:08 MCV 93 fl (84-94) 10/16/18 05:08 MCH 29 pg (28-32) 10/16/18 05:08 MCHC 32 % (32-34) 10/16/18 05:08 RDW 17.9 % (13.2-15.2) H 10/16/18 05:08 Plt Count 263 K/mm3 (140-440) 10/16/18 05:08 Add Manual Diff Complete 10/15/18 11:21 Total Counted 100 10/15/18 11:21 Seg Neutrophils % Machinist Instructor 10/15/18 11:21 Seg Neuts % (Manual) 92.0 % (40.0-70.0) H 10/15/18 11:21 Band Neutrophils % 0 % 10/15/18 11:21 Lymphocytes % (Manual) 7.0 % (13.4-35.0) L 10/15/18 11:21 Reactive Lymphs % (Man) 1.0 % 10/15/18 11:21 Monocytes % (Manual) 0 % (0.0-7.3) 10/15/18 11:21 Eosinophils % (Manual) 0 % (0.0-4.3) 10/15/18 11:21 Basophils % (Manual) 0 % (0.0-1.8) 10/15/18 11:21 Metamyelocytes % 0 % 10/15/18 11:21 Myelocytes % 0 % 10/15/18 11:21 Promyelocytes % 0 % 10/15/18 11:21 Blast Cells % 0 % 10/15/18 11:21 Nucleated RBC % Not Reportable 10/15/18 11:21 Seg Neutrophils # Man 29.3 K/mm3 (1.8-7.7) H 10/15/18 11:21 Band Neutrophils # 0.0 K/mm3 10/15/18 11:21 Lymphocytes # (Manual) 2.2 K/mm3 (1.2-5.4) 10/15/18 11:21 Abs React Lymphs (Man) 0.3 K/mm3 10/15/18 11:21 Monocytes # (Manual) 0.0 K/mm3 (0.0-0.8) 10/15/18 11:21 Eosinophils # (Manual) 0.0 K/mm3 (0.0-0.4) 10/15/18 11:21 Basophils # (Manual) 0.0 K/mm3 (0.0-0.1) 10/15/18 11:21 Metamyelocytes # 0.0 K/mm3 10/15/18 11:21 Myelocytes # 0.0 K/mm3 10/15/18 11:21 Promyelocytes # 0.0 K/mm3 10/15/18 11:21 Blast Cells # 0.0 K/mm3 10/15/18 11:21 WBC Morphology Not Reportable 10/15/18 11:21 Hypersegmented Neuts Not Reportable 10/15/18 11:21 Hyposegmented Neuts Not Reportable 10/15/18 11:21 Hypogranular Neuts Not Reportable 10/15/18 11:21 Smudge Cells Not Reportable 10/15/18 11:21 Toxic Granulation Not Reportable 10/15/18 11:21 Toxic Vacuolation Not Reportable 10/15/18 11:21 Dohle Bodies Not Reportable 10/15/18 11:21 Pelger-Huet Anomaly Not Reportable 10/15/18 11:21 Lisa Rods Not Reportable 10/15/18 11:21 Platelet Estimate Consistent w auto 10/15/18 11:21 Clumped Platelets Not Reportable 10/15/18 11:21 Plt Clumps, EDTA Not Reportable 10/15/18 11:21 Large Platelets Not Reportable 10/15/18 11:21 Giant Platelets Few 10/15/18 11:21 Platelet Satelliting Not Reportable 10/15/18 11:21 Plt Morphology Comment Not Reportable 10/15/18 11:21 RBC Morphology Not Reportable 10/15/18 11:21 Dimorphic RBCs Not Reportable 10/15/18 11:21 Polychromasia Rare 10/15/18 11:21 Hypochromasia Not Reportable 10/15/18 11:21 Poikilocytosis Not Reportable 10/15/18 11:21 Anisocytosis Not Reportable 10/15/18 11:21 Microcytosis Not Reportable 10/15/18 11:21 Macrocytosis Not Reportable 10/15/18 11:21 Spherocytes Not Reportable 10/15/18 11:21 Pappenheimer Bodies Not Reportable 10/15/18 11:21 Sickle Cells Not Reportable 10/15/18 11:21 Target Cells Few 10/15/18 11:21 Tear Drop Cells Not Reportable 10/15/18 11:21 Ovalocytes Not Reportable 10/15/18 11:21 Helmet Cells Not Reportable 10/15/18 11:21 [place] Bodies Not Reportable 10/15/18 11:21 Maple Rings Not Reportable 10/15/18 11:21 [place] Cells Few 10/15/18 11:21 Bite Cells Not Reportable 10/15/18 11:21 Crenated Cell Not Reportable 10/15/18 11:21 Elliptocytes Not Reportable 10/15/18 11:21 Acanthocytes (Spur) Not Reportable 10/15/18 11:21 Rouleaux Not Reportable 10/15/18 11:21 Hemoglobin C Crystals Not Reportable 10/15/18 11:21 Schistocytes Not Reportable 10/15/18 11:21 Malaria parasites Not Reportable 10/15/18 11:21 [place] Bodies Not Reportable 10/15/18 11:21 Hem Pathologist Commnt No 10/15/18 11:21 PT 22.2 Sec. (12.2-14.9) H 10/16/18 05:08 INR 1.90 (0.87-1.13) H 10/16/18 05:08 POC ABG pH 7.380 (7.35-7.45) 10/11/18 17:53 POC ABG pCO2 28.2 (35-45) L 10/11/18 17:53 POC ABG pO2 60 (80-105) L 10/11/18 17:53 POC ABG HCO3 16.7 10/11/18 17:53 POC ABG Total CO2 18 10/11/18 17:53 POC ABG O2 Sat 91 10/11/18 17:53 POC ABG Base Excess -8 10/11/18 17:53 VBG pH 7.226 (7.320-7.420) L 10/11/18 05:21 FiO2 2 % 10/11/18 17:53 Sodium 141 mmol/L (137-145) 10/16/18 05:08 Potassium 3.7 mmol/L (3.6-5.0) 10/16/18 05:08 Chloride 119.9 mmol/L (98-107) H 10/16/18 05:08 Carbon Dioxide 12 mmol/L (22-30) L 10/16/18 05:08 Anion Gap 13 mmol/L 10/16/18 05:08 BUN 16 mg/dL (9-20) 10/16/18 05:08 Creatinine 1.3 mg/dL (0.8-1.5) 10/16/18 05:08 Estimated GFR > 60 ml/min 10/16/18 05:08 BUN/Creatinine Ratio 12 % 10/16/18 05:08 Glucose 116 mg/dL (75-100) H 10/16/18 05:08 POC Glucose 87 (70-105) 10/16/18 11:38 Lactic Acid 1.50 mmol/L (0.7-2.0) 10/12/18 04:20 Calcium 6.7 mg/dL (8.4-10.2) L 10/16/18 05:08 Phosphorus 4.80 mg/dL (2.5-4.5) H 10/11/18 06:51 Magnesium 1.50 mg/dL (1.7-2.3) L 10/16/18 05:08 Total Bilirubin 0.30 mg/dL (0.1-1.2) 10/12/18 04:20 AST 25 units/L (5-40) 10/12/18 04:20 ALT 10 units/L (7-56) 10/12/18 04:20 Alkaline Phosphatase 109 units/L (35-129) 10/12/18 04:20 Total Creatine Kinase 933 units/L (55-170) H 10/11/18 17:58 CK-MB (CK-2) 2.8 ng/mL (0.0-4.0) 10/11/18 17:58 CK-MB (CK-2) Rel Index 0.3 (0-4) 10/11/18 17:58 Troponin T 0.116 ng/mL (0.00-0.029) H* 10/11/18 05:21 Total Protein 5.8 g/dL (6.3-8.2) L 10/12/18 04:20 Albumin 1.8 g/dL (3.9-5) L 10/12/18 04:20 Albumin/Globulin Ratio 0.5 % 10/12/18 04:20 Triglycerides 120 mg/dL (2-149) 10/11/18 05:21 Cholesterol 26 mg/dL (50-199) L 10/11/18 05:21 LDL Cholesterol Direct 4 mg/dL (50-130) L 10/11/18 05:21 HDL Cholesterol 7 mg/dL (40-59) L 10/11/18 05:21 Cholesterol/HDL Ratio 3.71 % 10/11/18 05:21 Urine Color Christine (Yellow) 10/11/18 Unknown Urine Turbidity Turbid (Clear) 10/11/18 Unknown Urine pH 5.0 (5.0-7.0) 10/11/18 Unknown Ur Specific [place] 1.019 (1.003-1.030) 10/11/18 Unknown Urine Protein 100 mg/dl mg/dL (Negative) 10/11/18 Unknown Urine Glucose (UA) Neg mg/dL (Negative) 10/11/18 Unknown Urine Ketones Neg mg/dL (Negative) 10/11/18 Unknown Urine Blood Sm (Negative) 10/11/18 Unknown Urine Nitrite Neg (Negative) 10/11/18 Unknown Urine Bilirubin Neg (Negative) 10/11/18 Unknown Urine Urobilinogen < 2.0 mg/dL (<2.0) 10/11/18 Unknown Ur Leukocyte Esterase Lg (Negative) 10/11/18 Unknown Urine WBC (Auto) > 182.0 /HPF (0.0-6.0) H 10/11/18 Unknown Urine RBC (Auto) 57.0 /HPF (0.0-6.0) 10/11/18 Unknown U Epithel Cells (Auto) 1.0 /HPF (0-13.0) 10/11/18 06:08 Urine Bacteria (Auto) 3+ /HPF (Negative) 10/11/18 Unknown Urine WBC Clumps 3+ /HPF 10/11/18 Unknown Urine Mucus 2+ /HPF 10/11/18 Unknown Random Vancomycin 5.7 ug/mL (0-40.0) 10/13/18 05:30 Blood Type A POSITIVE 10/11/18 09:05 Antibody Screen Negative 10/11/18 09:05 Crossmatch See Detail 10/11/18 09:05 Nutrition/Malnutrition Assess - Dietary Evaluation Nutrition/Malnutrition Findings: Nutrition Notes Start: 10/12/18 1 2:55 Freq: Status: Active Protocol: Document 10/16/18 14:24 [facility] (Rec: 10/16/18 14:29 [facility] [id number]) Nutrition Notes Initial or Follow up Reassessment Current Diagnosis Acute Kidney Injury Diabetes Sepsis Other Pertinent Diagnosis Sacral pressure ulcer Labs/Tests Mg 1.5 CO2 - 12 Pertinent Medications NaHCO3 gtt, Levophed gtt, Coumadin Height 6 ft Weight 83.7 kg [place] Body Weight (kg) 80.90 BMI 25.0 Subjective/Other Information No PO intakes documented. Pt says he is eating >50% of meals. Reports "decent" appetite. He is in a lot of pain at time of visit (12:28), so RD unable to assess need for DNI education. Burn Absent Trauma Absent #1 Nutrition Diagnosis Inadequate oral intake As Evidenced by Signs and Symptoms pt tolerating PO and eating at least 50% of meals Diagnosis Progress(for reassessment Improved documentation) Is patient on ventilator? No Is Patient Ambulatory and/or Out of Bed Yes REE-([place]-St. Jeor-ambulatory/OOB) [ [id number] [id number]] Calculation [facility] Additional Notes Pro: 100-167g/day (1.2-2 g/kg BW) Fluid: 1 ml/kcal Nutrition Intervention Change Diet Order: Continue current diet order Goal #1 PO intake of meals to meet at least 75% of nutrient needs Goal #2 Wound healing Follow-Up By: 10/17/18 Additional Comments F/U: DNI education needs, Norm
--- NOTE | 2018-10-16 17:37 | Progress Note ---
Assessment and Plan Acute Toxic metabolic encephalopathy Septic Shock Severe Sepsis DKA MALCOLM secondary to vasomotor nephropathy Metabolic acidosis Colostomy Unstagable scaral pressure ulcer POA Afib with RVR Troponemia- Type 2 NSTEMI Anemia of chronic disease Hypokalemia Severe Protein calorie malnutrition - titrate levophed to keep MAP > 65 mmHg - continue volume resuscitation - Heparin drip held re: Anemia not appropriately responsive to transfusions - Surgical evaluation ongoing re: sacral decubitus - continue Sepsis protocol - continue cefepime (BC's grew B-hemolytic strep) - de-escalate per ID recommendations - continue GI & VTE prophylaxis - continue glycemic control with lantus insulin and SSI for target BG 140 to 180 mg/dL - TTE without vegetations - prn CBC re: Anemia (s/p 3 units PRBC's this admission) - PT/OT evaluation ongoing - follow Renal ultrasound - continue fall precautions - Continue GI & VTE prophylaxis - continue mobility protocol for pressure ulcer prophylaxis - continue other care per attending / other consultants ...re-evaluate in am & prn FULL CODE The high probability of a clinically significant, sudden or life threatening deterioration of the [CARDIAC, RENAL, ] system(s) required my full and direct attention, intervention and personal management. The aggregate critical care time was [36] minutes. This time is in addition to time spent performing reported procedures but includes the following: [X] Data Review and interpretation [X] Patient assessment and monitoring of vital signs [X] Documentation [X] Medication orders and management Subjective Date of service: 10/16/18 Principal diagnosis: Acute Toxic metabolic encephalopathy; Septic Shock; Severe Sepsis; DKA Interval history: Patient is seen today for: Acute Toxic metabolic encephalopathy; Septic Shock; Severe Sepsis; DKA Seen and examined at bedside; 24hour events reviewed; nursing and respiratory care staff consulted; no adverse overnight events reported to me; resting peacefully in bed; Remains hypotensive and on levophed drip; No N/V/F/C Objective Vital Signs - 12hr 10/16/18 10/16/18 10/16/18 05:40 05:50 06:00 Temperature Pulse Rate 97 H 107 H 108 H Pulse Rate [ Anterior Bilateral Throughout] Respiratory 29 H 29 H 31 H Rate Respiratory Rate [Anterior Bilateral Throughout] Blood Pressure 103/60 112/70 111/66 O2 Sat by Pulse 99 99 99 Oximetry 10/16/18 10/16/18 10/16/18 06:10 06:20 06:30 Temperature Pulse Rate 106 H 108 H 106 H Pulse Rate [ Anterior Bilateral Throughout] Respiratory 35 H 32 H 32 H Rate Respiratory Rate [Anterior Bilateral Throughout] Blood Pressure 100/64 112/67 111/66 O2 Sat by Pulse 98 99 99 Oximetry 10/16/18 10/16/18 10/16/18 06:40 06:50 07:00 Temperature Pulse Rate 111 H 111 H 112 H Pulse Rate [ Anterior Bilateral Throughout] Respiratory 32 H 31 H 36 H Rate Respiratory Rate [Anterior Bilateral Throughout] Blood Pressure 112/70 123/67 105/73 O2 Sat by Pulse 99 100 100 Oximetry 10/16/18 10/16/18 10/16/18 07:10 07:20 07:30 Temperature Pulse Rate 112 H 112 H 113 H Pulse Rate [ Anterior Bilateral Throughout] Respiratory 33 H 31 H 31 H Rate Respiratory Rate [Anterior Bilateral Throughout] Blood Pressure 108/64 96/75 111/68 O2 Sat by Pulse 100 100 100 Oximetry 10/16/18 10/16/18 10/16/18 07:40 07:50 08:00 Temperature Pulse Rate 112 H 110 H Pulse Rate [ Anterior Bilateral Throughout] Respiratory 23 23 30 H Rate Respiratory Rate [Anterior Bilateral Throughout] Blood Pressure 109/69 100/57 97/58 O2 Sat by Pulse 100 98 95 Oximetry 10/16/18 10/16/18 10/16/18 08:10 08:20 08:30 Temperature Pulse Rate 113 H 113 H 112 H Pulse Rate [ Anterior Bilateral Throughout] Respiratory 19 28 H 42 H Rate Respiratory Rate [Anterior Bilateral Throughout] Blood Pressure 90/55 99/60 101/57 O2 Sat by Pulse 96 98 97 Oximetry 10/16/18 10/16/18 10/16/18 08:40 08:50 08:54 Temperature Pulse Rate 112 H 118 H Pulse Rate [ 97 H Anterior Bilateral Throughout] Respiratory 36 H 28 H Rate Respiratory 20 Rate [Anterior Bilateral Throughout] Blood Pressure 98/57 108/67 O2 Sat by Pulse 97 99 98 Oximetry 10/16/18 10/16/18 10/16/18 09:00 09:05 09:10 Temperature Pulse Rate 117 H 116 H Pulse Rate [ 94 H Anterior Bilateral Throughout] Respiratory 21 19 Rate Respiratory 18 Rate [Anterior Bilateral Throughout] Blood Pressure 99/65 93/67 O2 Sat by Pulse 99 100 Oximetry 10/16/18 10/16/18 10/16/18 09:20 09:30 09:40 Temperature Pulse Rate 115 H 115 H 104 H Pulse Rate [ Anterior Bilateral Throughout] Respiratory 18 26 H 18 Rate Respiratory Rate [Anterior Bilateral Throughout] Blood Pressure 90/58 106/73 114/68 O2 Sat by Pulse 100 100 100 Oximetry 10/16/18 10/16/18 10/16/18 09:50 10:00 10:10 Temperature Pulse Rate 104 H 105 H 105 H Pulse Rate [ Anterior Bilateral Throughout] Respiratory 16 14 31 H Rate Respiratory Rate [Anterior Bilateral Throughout] Blood Pressure 111/63 111/71 95/64 O2 Sat by Pulse 100 100 100 Oximetry 10/16/18 10/16/18 10/16/18 10:20 10:30 10:40 Temperature Pulse Rate 105 H 107 H 106 H Pulse Rate [ Anterior Bilateral Throughout] Respiratory 21 17 34 H Rate Respiratory Rate [Anterior Bilateral Throughout] Blood Pressure 114/68 94/52 94/52 O2 Sat by Pulse 100 99 100 Oximetry 10/16/18 10/16/18 10/16/18 10:50 11:00 11:10 Temperature Pulse Rate 106 H 110 H 125 H Pulse Rate [ Anterior Bilateral Throughout] Respiratory 33 H 29 H 18 Rate Respiratory Rate [Anterior Bilateral Throughout] Blood Pressure 94/52 95/68 92/63 O2 Sat by Pulse 99 89 99 Oximetry 10/16/18 10/16/18 10/16/18 11:20 11:30 11:40 Temperature Pulse Rate 104 H 121 H 106 H Pulse Rate [ Anterior Bilateral Throughout] Respiratory 30 H 36 H 32 H Rate Respiratory Rate [Anterior Bilateral Throughout] Blood Pressure 94/52 94/52 78/52 O2 Sat by Pulse 99 99 98 Oximetry 10/16/18 10/16/18 10/16/18 11:50 12:00 12:10 Temperature 99 F Pulse Rate 105 H 105 H 119 H Pulse Rate [ Anterior Bilateral Throughout] Respiratory 39 H 38 H 37 H Rate Respiratory Rate [Anterior Bilateral Throughout] Blood Pressure 78/52 84/60 84/60 O2 Sat by Pulse 99 99 100 Oximetry 10/16/18 10/16/18 10/16/18 12:20 12:30 12:43 Temperature Pulse Rate 121 H 122 H Pulse Rate [ Anterior Bilateral Throughout] Respiratory 40 H 21 Rate Respiratory Rate [Anterior Bilateral Throughout] Blood Pressure 84/60 84/60 104/69 O2 Sat by Pulse 99 99 Oximetry 10/16/18 10/16/18 10/16/18 12:50 13:00 13:09 Temperature Pulse Rate 114 H 118 H Pulse Rate [ Anterior Bilateral Throughout] Respiratory 29 H 39 H Rate Respiratory Rate [Anterior Bilateral Throughout] Blood Pressure 104/69 94/57 95/53 O2 Sat by Pulse 99 98 Oximetry 10/16/18 10/16/18 10/16/18 13:10 13:20 13:30 Temperature Pulse Rate 107 H 104 H 108 H Pulse Rate [ Anterior Bilateral Throughout] Respiratory 34 H 35 H 23 Rate Respiratory Rate [Anterior Bilateral Throughout] Blood Pressure 94/57 94/57 109/61 O2 Sat by Pulse 100 98 100 Oximetry 10/16/18 10/16/18 10/16/18 13:40 13:50 14:00 Temperature Pulse Rate 106 H 106 H 105 H Pulse Rate [ Anterior Bilateral Throughout] Respiratory 33 H 32 H 35 H Rate Respiratory Rate [Anterior Bilateral Throughout] Blood Pressure 109/61 109/61 109/61 O2 Sat by Pulse 100 100 100 Oximetry 10/16/18 10/16/18 10/16/18 14:10 14:20 14:30 Temperature Pulse Rate 106 H 105 H 109 H Pulse Rate [ Anterior Bilateral Throughout] Respiratory 38 H 36 H 19 Rate Respiratory Rate [Anterior Bilateral Throughout] Blood Pressure 106/70 106/70 91/54 O2 Sat by Pulse 100 100 98 Oximetry 10/16/18 10/16/18 10/16/18 14:40 14:50 15:00 Temperature Pulse Rate 104 H 104 H 105 H Pulse Rate [ Anterior Bilateral Throughout] Respiratory 24 35 H 33 H Rate Respiratory Rate [Anterior Bilateral Throughout] Blood Pressure 91/54 91/54 88/48 O2 Sat by Pulse 97 97 97 Oximetry 10/16/18 10/16/18 10/16/18 15:10 15:12 15:22 Temperature Pulse Rate 103 H Pulse Rate [ 105 H 104 H Anterior Bilateral Throughout] Respiratory 37 H Rate Respiratory 20 22 Rate [Anterior Bilateral Throughout] Blood Pressure 88/48 O2 Sat by Pulse 97 Oximetry Constitutional: alert, appears uncomfortable, other (elderly looking AAM, normocephalic and atraumatic with mildly increased resp effort at rest) Eyes: non-icteric ENT: oropharynx dry, other (Mallampati 2) Neck: supple, no lymphadenopathy, no JVD Effort: mildly labored Ascultation: Bilateral: clear Percussion: Bilateral: not dull Cardiovascular: irregular rhythm, other (No R/M) Gastrointestinal: hypoactive bowel sounds, soft, non-tender, non-distended Integumentary: rash, decubitus ulcer (sacral) Extremities: no cyanosis, no edema, pulses normal, no ischemia or petechiae Neurologic: normal mental status, non-focal exam (grossly), pupils equal and rou nd, other (weak lower extremities) Psychiatric: mood appropriate, affect normal CBC and BMP: 10/16/18 05:08 10/17/18 04:52 ABG, PT/INR, D-dimer: ABG POC ABG pH 7.380 (7.35-7.45) 10/11/18 17:53 POC ABG pCO2 28.2 (35-45) L 10/11/18 17:53 POC ABG pO2 60 (80-105) L 10/11/18 17:53 POC ABG HCO3 16.7 10/11/18 17:53 POC ABG Total CO2 18 10/11/18 17:53 POC ABG O2 Sat 91 10/11/18 17:53 PT/INR, D-dimer PT 22.2 Sec. (12.2-14.9) H 10/16/18 05:08 INR 1.90 (0.87-1.13) H 10/16/18 05:08 Abnormal lab findings: Abnormal Labs 10/11/18 10/11/18 10/11/18 05:21 05:21 05:21 WBC 22.3 H RBC 2.62 L Hgb 8.0 L Hct 24.5 L MCHC RDW 16.0 H Seg Neuts % (Manual) 90.0 H Lymphocytes % (Manual) 4.0 L Seg Neutrophils # Man 20.1 H Lymphocytes # (Manual) 0.9 L PT 17.1 H INR 1.35 H POC ABG pCO2 POC ABG pO2 VBG pH Sodium 133 L Potassium 2.8 L* Chloride 94.5 L Carbon Dioxide 11 L BUN 69 H Creatinine 5.0 H Glucose 362 H POC Glucose Lactic Acid Calcium 7.4 L Phosphorus Magnesium Total Creatine Kinase Troponin T 0.116 H* Total Protein 6.2 L Albumin 2.1 L Cholesterol 26 L LDL Cholesterol Direct 4 L HDL Cholesterol 7 L Urine WBC (Auto) Crossmatch 10/11/18 10/11/18 10/11/18 05:21 05:21 05:21 WBC RBC Hgb Hct MCHC RDW Seg Neuts % (Manual) Lymphocytes % (Manual) Seg Neutrophils # Man Lymphocytes # (Manual) PT INR POC ABG pCO2 POC ABG pO2 VBG pH 7.226 L Sodium Potassium Chloride Carbon Dioxide BUN Creatinine Glucose POC Glucose Lactic Acid 7.40 H* Calcium Phosphorus Magnesium Total Creatine Kinase 1094 H Troponin T Total Protein Albumin Cholesterol LDL Cholesterol Direct HDL Cholesterol Urine WBC (Auto) Crossmatch 10/11/18 10/11/18 10/11/18 06:08 06:51 06:51 WBC RBC Hgb Hct MCHC RDW Seg Neuts % (Manual) Lymphocytes % (Manual) Seg Neutrophils # Man Lymphocytes # (Manual) PT INR POC ABG pCO2 POC ABG pO2 VBG pH Sodium 132 L Potassium 3.1 L Chloride 94.3 L Carbon Dioxide 10 L BUN 68 H Creatinine 5.8 H Glucose 402 H POC Glucose Lactic Acid 7.80 H* Calcium 7.8 L Phosphorus 4.80 H Magnesium 0.90 L* Total Creatine Kinase Troponin T Total Protein Albumin Cholesterol LDL Cholesterol Direct HDL Cholesterol Urine WBC (Auto) > 182.0 H Crossmatch 10/11/18 10/11/18 10/11/18 08:56 09:05 10:23 WBC RBC Hgb Hct MCHC RDW Seg Neuts % (Manual) Lymphocytes % (Manual) Seg Neutrophils # Man Lymphocytes # (Manual) PT INR POC ABG pCO2 POC ABG pO2 VBG pH Sodium Potassium Chloride Carbon Dioxide BUN Creatinine Glucose POC Glucose 367 H 305 H Lactic Acid Calcium Phosphorus Magnesium Total Creatine Kinase Troponin T Total Protein Albumin Cholesterol LDL Cholesterol Direct HDL Cholesterol Urine WBC (Auto) Crossmatch See Detail 10/11/18 10/11/18 10/11/18 11:12 12:17 12:18 WBC RBC Hgb Hct MCHC RDW Seg Neuts % (Manual) Lymphocytes % (Manual) Seg Neutrophils # Man Lymphocytes # (Manual) PT INR POC ABG pCO2 POC ABG pO2 VBG pH Sodium 135 L Potassium 2.8 L* Chloride 97.9 L Carbon Dioxide 14 L BUN 67 H Creatinine 6.0 H Glucose 246 H POC Glucose 299 H 261 H Lactic Acid Calcium 7.5 L Phosphorus Magnesium Total Creatine Kinase 1110 H Troponin T Total Protein Albumin Cholesterol LDL Cholesterol Direct HDL Cholesterol Urine WBC (Auto) Crossmatch 10/11/18 10/11/18 10/11/18 13:05 14:13 14:34 WBC RBC Hgb Hct MCHC RDW Seg Neuts % (Manual) Lymphocytes % (Manual) Seg Neutrophils # Man Lymphocytes # (Manual) PT INR POC ABG pCO2 POC ABG pO2 VBG pH Sodium 135 L Potassium 2.7 L* Chloride Carbon Dioxide 18 L BUN 68 H Creatinine 5.0 H Glucose 191 H POC Glucose 251 H 233 H Lactic Acid Calcium 7.1 L Phosphorus Magnesium Total Creatine Kinase Troponin T Total Protein Albumin Cholesterol LDL Cholesterol Direct HDL Cholesterol Urine WBC (Auto) Crossmatch 10/11/18 10/11/18 10/11/18 15:08 16:00 17:20 WBC RBC Hgb Hct MCHC RDW Seg Neuts % (Manual) Lymphocytes % (Manual) Seg Neutrophils # Man Lymphocytes # (Manual) PT INR POC ABG pCO2 POC ABG pO2 VBG pH Sodium Potassium Chloride Carbon Dioxide BUN Creatinine Glucose POC Glucose 213 H 224 H 187 H Lactic Acid Calcium Phosphorus Magnesium Total Creatine Kinase Troponin T Total Protein Albumin Cholesterol LDL Cholesterol Direct HDL Cholesterol Urine WBC (Auto) Crossmatch 10/11/18 10/11/18 10/11/18 17:53 17:58 18:12 WBC RBC Hgb Hct MCHC RDW Seg Neuts % (Manual) Lymphocytes % (Manual) Seg Neutrophils # Man Lymphocytes # (Manual) PT INR POC ABG pCO2 28.2 L POC ABG pO2 60 L VBG pH Sodium Potassium Chloride Carbon Dioxide BUN Creatinine Glucose POC Glucose 189 H Lactic Acid Calcium Phosphorus Magnesium Total Creatine Kinase 933 H Troponin T Total Protein Albumin Cholesterol LDL Cholesterol Direct HDL Cholesterol Urine WBC (Auto) Crossmatch 10/11/18 10/11/18 10/11/18 18:58 20:16 21:10 WBC RBC Hgb Hct MCHC RDW Seg Neuts % (Manual) Lymphocytes % (Manual) Seg Neutrophils # Man Lymphocytes # (Manual) PT INR POC ABG pCO2 POC ABG pO2 VBG pH Sodium Potassium Chloride Carbon Dioxide BUN Creatinine Glucose POC Glucose 192 H 179 H 160 H Lactic Acid Calcium Phosphorus Magnesium Total Creatine Kinase Troponin T Total Protein Albumin Cholesterol LDL Cholesterol Direct HDL Cholesterol Urine WBC (Auto) Crossmatch 01/10/11/18 10/11/18 22:14 22:42 23:09 WBC RBC Hgb Hct MCHC RDW Seg Neuts % (Manual) Lymphocytes % (Manual) Seg Neutrophils # Man Lymphocytes # (Manual) PT INR POC ABG pCO2 POC ABG pO2 VBG pH Sodium 136 L Potassium 2.9 L* Chloride Carbon Dioxide 17 L BUN 61 H Creatinine 4.0 H Glucose 122 H POC Glucose 145 H 129 H Lactic Acid Calcium 6.6 L Phosphorus Magnesium Total Creatine Kinase Troponin T Total Protein Albumin Cholesterol LDL Cholesterol Direct HDL Cholesterol Urine WBC (Auto) Crossmatch 10/11/18 10/11/18 10/11/18 Unknown Unknown Unknown WBC RBC Hgb Hct MCHC RDW Seg Neuts % (Manual) Lymphocytes % (Manual) Seg Neutrophils # Man Lymphocytes # (Manual) PT INR POC ABG pCO2 POC ABG pO2 VBG pH Sodium 133 L Potassium 3.0 L Chloride 93.7 L Carbon Dioxide 9 L* BUN 67 H Creatinine 5.9 H Glucose 406 H POC Glucose Lactic Acid 8.50 H* Calcium 7.6 L Phosphorus Magnesium Total Creatine Kinase Troponin T Total Protein Albumin Cholesterol LDL Cholesterol Direct HDL Cholesterol Urine WBC (Auto) > 182.0 H Crossmatch 10/12/18 10/12/18 10/12/18 00:18 01:42 02:03 WBC RBC Hgb Hct MCHC RDW Seg Neuts % (Manual) Lymphocytes % (Manual) Seg Neutrophils # Man Lymphocytes # (Manual) PT INR POC ABG pCO2 POC ABG pO2 VBG pH Sodium Potassium Chloride Carbon Dioxide BUN Creatinine Glucose POC Glucose 113 H 51 L 116 H Lactic Acid Calcium Phosphorus Magnesium Total Creatine Kinase Troponin T Total Protein Albumin Cholesterol LDL Cholesterol Direct HDL Cholesterol Urine WBC (Auto) Crossmatch 10/12/18 10/12/18 10/12/18 03:09 04:20 04:20 WBC 26.8 H RBC 2.22 L Hgb 6.7 L Hct 19.4 L* MCHC 35 H RDW 15.8 H Seg Neuts % (Manual) Lymphocytes % (Manual) Seg Neutrophils # Man Lymphocytes # (Manual) PT INR POC ABG pCO2 POC ABG pO2 VBG pH Sodium Potassium 2.6 L* Chloride Carbon Dioxide 20 L BUN 56 H Creatinine 4.0 H Glucose 134 H POC Glucose 129 H Lactic Acid Calcium 6.4 L Phosphorus Magnesium 1.30 L Total Creatine Kinase Troponin T Total Protein 5.8 L Albumin 1.8 L Cholesterol LDL Cholesterol Direct HDL Cholesterol Urine WBC (Auto) Crossmatch 10/12/18 10/12/18 10/12/18 04:22 05:25 06:25 WBC RBC Hgb Hct MCHC RDW Seg Neuts % (Manual) Lymphocytes % (Manual) Seg Neutrophils # Man Lymphocytes # (Manual) PT INR POC ABG pCO2 POC ABG pO2 VBG pH Sodium Potassium 2.7 L* Chloride Carbon Dioxide 19 L BUN 51 H Creatinine 3.6 H Glucose 113 H POC Glucose 186 H 131 H Lactic Acid Calcium 6.4 L Phosphorus Magnesium Total Creatine Kinase Troponin T Total Protein Albumin Cholesterol LDL Cholesterol Direct HDL Cholesterol Urine WBC (Auto) Crossmatch 10/12/18 10/12/18 10/12/18 07:34 08:28 09:29 WBC RBC Hgb Hct MCHC RDW Seg Neuts % (Manual) Lymphocytes % (Manual) Seg Neutrophils # Man Lymphocytes # (Manual) PT INR POC ABG pCO2 POC ABG pO2 VBG pH Sodium Potassium Chloride Carbon Dioxide BUN Creatinine Glucose POC Glucose 120 H 110 H 140 H Lactic Acid Calcium Phosphorus Magnesium Total Creatine Kinase Troponin T Total Protein Albumin Cholesterol LDL Cholesterol Direct HDL Cholesterol Urine WBC (Auto) Crossmatch 10/12/18 10/12/18 10/12/18 11:55 12:55 12:55 WBC RBC Hgb 7.1 L Hct 20.6 L MCHC RDW Seg Neuts % (Manual) Lymphocytes % (Manual) Seg Neutrophils # Man Lymphocytes # (Manual) PT INR POC ABG pCO2 POC ABG pO2 VBG pH Sodium 136 L Potassium 2.9 L* Chloride Carbon Dioxide 16 L BUN 48 H Creatinine 3.1 H Glucose 258 H POC Glucose 219 H Lactic Acid Calcium 6.3 L Phosphorus Magnesium Total Creatine Kinase Troponin T Total Protein Albumin Cholesterol LDL Cholesterol Direct HDL Cholesterol Urine WBC (Auto) Crossmatch 10/12/18 10/12/18 10/12/18 12:55 17:49 19:23 WBC RBC Hgb 7.7 L Hct 22.9 L MCHC RDW Seg Neuts % (Manual) Lymphocytes % (Manual) Seg Neutrophils # Man Lymphocytes # (Manual) PT INR POC ABG pCO2 POC ABG pO2 VBG pH Sodium Potassium Chloride Carbon Dioxide BUN Creatinine Glucose POC Glucose 344 H Lactic Acid Calcium Phosphorus Magnesium 4.80 H Total Creatine Kinase Troponin T Total Protein Albumin Cholesterol LDL Cholesterol Direct HDL Cholesterol Urine WBC (Auto) Crossmatch 10/12/18 10/13/18 10/13/18 22:21 00:15 05:28 WBC RBC Hgb Hct MCHC RDW Seg Neuts % (Manual) Lymphocytes % (Manual) Seg Neutrophils # Man Lymphocytes # (Manual) PT INR POC ABG pCO2 POC ABG pO2 VBG pH Sodium Potassium Chloride Carbon Dioxide BUN Creatinine Glucose POC Glucose 367 H 392 H 356 H Lactic Acid Calcium Phosphorus Magnesium Total Creatine Kinase Troponin T Total Protein Albumin Cholesterol LDL Cholesterol Direct HDL Cholesterol Urine WBC (Auto) Crossmatch 10/13/18 10/13/18 10/13/18 05:30 05:30 06:37 WBC 19.2 H RBC 2.67 L Hgb 7.9 L Hct 23.2 L MCHC RDW 16.4 H Seg Neuts % (Manual) Lymphocytes % (Manual) Seg Neutrophils # Man Lymphocytes # (Manual) PT INR POC ABG pCO2 POC ABG pO2 VBG pH Sodium 135 L Potassium 2.8 L* Chloride Carbon Dioxide 17 L BUN 37 H Creatinine 2.0 H Glucose 383 H POC Glucose 413 H Lactic Acid Calcium 6.6 L Phosphorus Magnesium Total Creatine Kinase Troponin T Total Protein Albumin Cholesterol LDL Cholesterol Direct HDL Cholesterol Urine WBC (Auto) Crossmatch 10/13/18 10/13/18 10/13/18 11:15 12:46 17:47 WBC RBC Hgb Hct MCHC RDW Seg Neuts % (Manual) Lymphocytes % (Manual) Seg Neutrophils # Man Lymphocytes # (Manual) PT INR POC ABG pCO2 POC ABG pO2 VBG pH Sodium Potassium 3.2 L Chloride Carbon Dioxide BUN Creatinine Glucose POC Glucose 220 H 181 H Lactic Acid Calcium Phosphorus Magnesium Total Creatine Kinase Troponin T Total Protein Albumin Cholesterol LDL Cholesterol Direct HDL Cholesterol Urine WBC (Auto) Crossmatch 10/13/18 10/13/18 10/13/18 19:45 22:19 23:53 WBC RBC Hgb Hct MCHC RDW Seg Neuts % (Manual) Lymphocytes % (Manual) Seg Neutrophils # Man Lymphocytes # (Manual) PT INR POC ABG pCO2 POC ABG pO2 VBG pH Sodium Potassium Chloride Carbon Dioxide BUN Creatinine Glucose POC Glucose 185 H 153 H 152 H Lactic Acid Calcium Phosphorus Magnesium Total Creatine Kinase Troponin T Total Protein Albumin Cholesterol LDL Cholesterol Direct HDL Cholesterol Urine WBC (Auto) Crossmatch 0110/14/18 10/14/18 02:38 04:36 04:36 WBC 19.8 H RBC 3.02 L Hgb 8.9 L Hct 26.1 L MCHC RDW 16.7 H Seg Neuts % (Manual) Lymphocytes % (Manual) Seg Neutrophils # Man Lymphocytes # (Manual) PT INR POC ABG pCO2 POC ABG pO2 VBG pH Sodium Potassium 2.9 L* Chloride 121.6 H Carbon Dioxide 16 L BUN 25 H Creatinine 1.6 H Glucose 117 H POC Glucose 142 H Lactic Acid Calcium 7.0 L Phosphorus Magnesium Total Creatine Kinase Troponin T Total Protein Albumin Cholesterol LDL Cholesterol Direct HDL Cholesterol Urine WBC (Auto) Crossmatch 10/14/18 10/14/18 10/14/18 04:36 09:45 10:59 WBC RBC Hgb Hct MCHC RDW Seg Neuts % (Manual) Lymphocytes % (Manual) Seg Neutrophils # Man Lymphocytes # (Manual) PT INR POC ABG pCO2 POC ABG pO2 VBG pH Sodium Potassium 3.2 L Chloride Carbon Dioxide BUN Creatinine Glucose POC Glucose 110 H Lactic Acid Calcium Phosphorus Magnesium 1.20 L Total Creatine Kinase Troponin T Total Protein Albumin Cholesterol LDL Cholesterol Direct HDL Cholesterol Urine WBC (Auto) Crossmatch 10/14/18 10/14/18 10/14/18 14:22 17:41 22:58 WBC RBC Hgb Hct MCHC RDW Seg Neuts % (Manual) Lymphocytes % (Manual) Seg Neutrophils # Man Lymphocytes # (Manual) PT INR POC ABG pCO2 POC ABG pO2 VBG pH Sodium Potassium Chloride Carbon Dioxide BUN Creatinine Glucose POC Glucose 106 H 116 H 134 H Lactic Acid Calcium Phosphorus Magnesium Total Creatine Kinase Troponin T Total Protein Albumin Cholesterol LDL Cholesterol Direct HDL Cholesterol Urine WBC (Auto) Crossmatch 10/15/18 10/15/18 10/15/18 06:14 11:21 11:21 WBC 31.9 H RBC 2.99 L Hgb 8.6 L Hct 26.4 L MCHC RDW 16.9 H Seg Neuts % (Manual) 92.0 H Lymphocytes % (Manual) 7.0 L Seg Neutrophils # Man 29.3 H Lymphocytes # (Manual) PT INR POC ABG pCO2 POC ABG pO2 VBG pH Sodium Potassium Chloride 111.6 H Carbon Dioxide 14 L BUN Creatinine Glucose 175 H POC Glucose 184 H Lactic Acid Calcium 7.2 L Phosphorus Magnesium Total Creatine Kinase Troponin T Total Protein Albumin Cholesterol LDL Cholesterol Direct HDL Cholesterol Urine WBC (Auto) Crossmatch 10/15/18 10/15/18 10/15/18 11:21 11:27 14:43 WBC RBC Hgb Hct MCHC RDW Seg Neuts % (Manual) Lymphocytes % (Manual) Seg Neutrophils # Man Lymphocytes # (Manual) PT INR POC ABG pCO2 POC ABG pO2 VBG pH Sodium Potassium Chloride Carbon Dioxide BUN Creatinine Glucose POC Glucose 197 H 174 H Lactic Acid Calcium Phosphorus Magnesium 1.30 L Total Creatine Kinase Troponin T Total Protein Albumin Cholesterol LDL Cholesterol Direct HDL Cholesterol Urine WBC (Auto) Crossmatch 10/15/18 10/15/18 10/15/18 16:06 20:13 23:55 WBC RBC Hgb Hct MCHC RDW Seg Neuts % (Manual) Lymphocytes % (Manual) Seg Neutrophils # Man Lymphocytes # (Manual) PT 26.5 H INR 2.40 H POC ABG pCO2 POC ABG pO2 VBG pH Sodium Potassium Chloride Carbon Dioxide BUN Creatinine Glucose POC Glucose 131 H 132 H Lactic Acid Calcium Phosphorus Magnesium Total Creatine Kinase Troponin T Total Protein Albumin Cholesterol LDL Cholesterol Direct HDL Cholesterol Urine WBC (Auto) Crossmatch 10/16/18 10/16/18 10/16/18 05:08 05:08 05:08 WBC 29.6 H RBC 2.99 L Hgb 8.7 L Hct 27.7 L MCHC RDW 17.9 H Seg Neuts % (Manual) Lymphocytes % (Manual) Seg Neutrophils # Man Lymphocytes # (Manual) PT INR POC ABG pCO2 POC ABG pO2 VBG pH Sodium Potassium Chloride 119.9 H Carbon Dioxide 12 L BUN Creatinine Glucose 116 H POC Glucose Lactic Acid Calcium 6.7 L Phosphorus Magnesium 1.50 L Total Creatine Kinase Troponin T Total Protein Albumin Cholesterol LDL Cholesterol Direct HDL Cholesterol Urine WBC (Auto) Crossmatch 10/16/18 10/16/18 05:08 05:49 WBC RBC Hgb Hct MCHC RDW Seg Neuts % (Manual) Lymphocytes % (Manual) Seg Neutrophils # Man Lymphocytes # (Manual) PT 22.2 H INR 1.90 H POC ABG pCO2 POC ABG pO2 VBG pH Sodium Potassium Chloride Carbon Dioxide BUN Creatinine Glucose POC Glucose 118 H Lactic Acid Calcium Phosphorus Magnesium Total Creatine Kinase Troponin T Total Protein Albumin Cholesterol LDL Cholesterol Direct HDL Cholesterol Urine WBC (Auto) Crossmatch Allied health notes reviewed: nursing
[2018-10-17] MEDS: HumaLOG SUB-Q SCH ×4 (00:11→18:24)
[2018-10-17] MEDS: CARDIZEM PO SCH ×4 (00:19→17:25)
[2018-10-17] MEDS: LANTUS SUB-Q SCH ×2 (00:20→23:00)
[2018-10-17] MEDS: DUONEB *Not for PRN Use IH SCH ×4 (03:13→20:40)
[2018-10-17 05:52] LABS: INR 1.76 (0.87-1.13)
[2018-10-17 05:59] LABS: Alanine Aminotransferase 10 units/L (7-56); Albumin 1.3 g/dL (3.9-5); BUN/Creatinine Ratio 11; Blood Urea Nitrogen 14 mg/dL (9-20); Hemolysis Index 81
[2018-10-17] MEDS: FLAGYL 500 MG/100 ML 500 MG/100 ML BAG IV SCH (06:47)
[2018-10-17] MEDS: SODIUM BICARBONATE 150 MEQ, KCL 20 MEQ in D5W 1,000 ML IV SCH (06:58)
--- NOTE | 2018-10-17 09:34 | Progress Note ---
Assessment and Plan Cultures: 10/11/2018 blood culture: Beta Strep group C 2 of 4 bottles 10/11/2018 urine culture: mixed growth 10/13/2018 blood culture no growth A/P: 58-year-old male with diabetes mellitus, recent admission in August 2018 for an anal abscess, colostomy was sent to the emergency room from an SNF earlier this morning after he was noted to have a fever with shaking chills. Admitted with: #1 Severe sepsis with septic shock: fever resolved, no pressors x 48h, leukocytosis at 29K. Source could be either Strep bacteremia +/- infected and necrotic sacral wound +/- UTI. - CT abd showed ?chronic colitis, small bilateral pleural effusions, ileus, anasarca, bilateral renal calculi. #2 Strep group C bacteremia: likely source infected and necrotic sacral wound. 10/11/2018 blood culture Beta Strep group C 2 of 4 bottles. Repeat blood culture 10/13 no growth. TTE no vegetation #3 Catheter associated urinary tract infection: POA. UA showing significant pyuria. Suarez exchanged. Urine culture grew 10-100K mixed growth #4 Sacral decubitus ulcer, infected, stage 4: recent anal abscess status post debridement at [facility] in August 2018. Per surgery does not believe source of bacteremia is the infected decubitus. No bone exposed on exam. #5 Acute kidney injury/acute renal failure: Present on admission. Improving. #6 Elevated troponins: Cardiology on board. #7 Acute encephalopathy: probably from sepsis. better #8 Acute anemia: GI consulted. Recs: Monitor leukocytosis Continue cefepime and flagyl for now Upon discharge will do ceftriaxone 2 g IV qday and flagyl 500 m PO TID for 3 weeks to cover Strep bacteremia and sacral wound infection. Sent to caser up. Will follow MD [facility] C: [phone] O: [phone] F: [phone] Subjective Date of service: 10/17/18 Principal diagnosis: Acute Toxic metabolic encephalopathy; Septic Shock; Severe Sepsis; DKA Interval history: Patient is alert, talking, no fever. +cough. No pressors. ROS: no fever, no chills, denies N/V/D, rash Objective - Exam Narrative Exam: Constitutional: Alert, cooperative. No acute distress on NC O2 Head, Ears, Nose: Normocephalic, atraumatic. External ears, nose normal Eyes: Conjunctivae/corneas clear. No icterus. No ptosis. Neck: Supple, no meningeal signs Oral: dentition poor, no thrush Cardiovascular: RRR Respiratory: Good air entry, clear to auscultation bilaterally GI: Soft, bowel sounds normal. +ostomy bag. +suarez Musculoskeletal: +bilateral leg edema. Large sacral wound with wound VAC Skin: No rash. Hem/Lymphatic: No palpable cervical or supraclavicular nodes. No lymphangitis Psych: Mood ok. Affect flat Neurological: Awake, alert, but not oriented. R IJ - Constitutional Vitals: Vital Signs Temp Pulse Resp BP Pulse Ox 97.5 F L 85 29 H 92/60 96 10/17/18 08:00 10/17/18 09:20 10/17/18 09:20 10/17/18 09:20 10/17/18 09:20 Temperature -Last 24 Hours Temperature 97.5 F Temperature 98.8 F Temperature 98.4 F Temperature 98.9 F Temperature 97.6 F Temperature 99 F - Labs CBC & Chem 7: 10/16/18 05:08 10/17/18 04:52 Labs: Abnormal lab results 10/16/18 10/16/18 10/16/18 Range/Units 17:44 18:29 19:33 PT (12.2-14.9) Sec. INR (0.87-1.13) Chloride (98-107) mmol/L Carbon Dioxide (22-30) mmol/L Glucose (75-100) mg/dL POC Glucose 50 L 60 L 118 H (70-105) Calcium (8.4-10.2) mg/dL Alkaline Phosphatase (35-129) units/L Total Protein (6.3-8.2) g/dL Albumin (3.9-5) g/dL 10/17/18 10/17/18 10/17/18 Range/Units 00:04 04:52 04:52 PT 20.9 H (12.2-14.9) Sec. INR 1.76 H (0.87-1.13) Chloride 113.4 H (98-107) mmol/L Carbon Dioxide 14 L (22-30) mmol/L Glucose 118 H (75-100) mg/dL POC Glucose 181 H (70-105) Calcium 7.0 L (8.4-10.2) mg/dL Alkaline Phosphatase 219 H (35-129) units/L Total Protein 5.5 L (6.3-8.2) g/dL Albumin 1.3 L (3.9-5) g/dL 10/17/18 Range/Units 05:26 PT (12.2-14.9) Sec. INR (0.87-1.13) Chloride (98-107) mmol/L Carbon Dioxide (22-30) mmol/L Glucose (75-100) mg/dL POC Glucose 135 H (70-105) Calcium (8.4-10.2) mg/dL Alkaline Phosphatase (35-129) units/L Total Protein (6.3-8.2) g/dL Albumin (3.9-5) g/dL
[2018-10-17] MEDS: SODIUM CHLORIDE FLUSH SYRINGE 10 ML IV SCH (10:00)
[2018-10-17] MEDS: PROTONIX PO SCH (10:13)
[2018-10-17] MEDS: SODIUM BICARBONATE PO SCH ×2 (10:13→23:22)
--- NOTE | 2018-10-17 11:33 | Progress Note ---
Assessment and Plan Currently stable cardiac status. Cont present cardiac management. Nothing further to add from cardiac perspective at this time. Will follow on as needed basis. The patient has been seen in conjunction with Dr. Hansen who agrees with the assessment and plan of care. - Patient Problems (1) Sepsis Current Visit: Yes Status: Acute (2) Hypotension Current Visit: Yes Status: Acute (3) Paroxysmal atrial fibrillation with RVR Current Visit: Yes Status: Chronic (4) UTI (urinary tract infection) Current Visit: Yes Status: Acute (5) Elevated troponin Current Visit: Yes Status: Acute (6) Acute renal failure Current Visit: Yes Status: Acute (7) Hyperglycemic hyperosmolar nonketotic coma Current Visit: Yes Status: Acute (8) Anemia Current Visit: Yes Status: Acute (9) Hypomagnesemia Current Visit: Yes Status: Acute (10) Hypokalemia Current Visit: Yes Status: Acute (11) Sacral decubitus ulcer Current Visit: Yes Status: Chronic Subjective Date of service: 10/17/18 Principal diagnosis: Acute Toxic metabolic encephalopathy; Septic Shock; Severe Sepsis; DKA Interval history: pt resting in bed, no apparent distress, no current cardiac complaints. in SR on telemetry. Objective Last Vital Signs Temp 97.5 F L 10/17/18 08:00 Pulse 87 10/17/18 10:00 Resp 32 H 10/17/18 10:00 BP 101/66 10/17/18 10:00 Pulse Ox 95 10/17/18 09:50 - Physical Examination General: No Apparent Distress HEENT: Positive: Normocephaly, Mucus Membranes Moist Neck: Positive: neck supple, trachea midline Cardiac: Positive: Reg Rate and Rhythm, S1/S2 Lungs: Positive: Decreased Breath Sounds Neuro: Positive: Other (disoriented) Abdomen: Positive: Soft Extremities: Absent: edema - Labs and Meds Cardiac Enzymes 10/17/18 Range/Units 04:52 AST 36 (5-40) units/L Coagulation 10/17/18 Range/Units 04:52 PT 20.9 H (12.2-14.9) Sec. INR 1.76 H (0.87-1.13) Comprehensive Metabolic Panel 10/17/18 Range/Units 04:52 Sodium 140 (137-145) mmol/L Potassium 3.8 (3.6-5.0) mmol/L Chloride 113.4 H (98-107) mmol/L Carbon Dioxide 14 L (22-30) mmol/L BUN 14 (9-20) mg/dL Creatinine 1.3 (0.8-1.5) mg/dL Glucose 118 H (75-100) mg/dL Calcium 7.0 L (8.4-10.2) mg/dL AST 36 (5-40) units/L ALT 10 (7-56) units/L Alkaline Phosphatase 219 H (35-129) units/L Total Protein 5.5 L (6.3-8.2) g/dL Albumin 1.3 L (3.9-5) g/dL - Imaging and Cardiology EKG: image reviewed Echo: report reviewed (EF 60-65%, mild TR. ) - Telemetry EKG Rhythm: Sinus Rhythm - EKG Sinus rhythms and dysrhythmias: sinus tachycardia - Allied health notes Allied health notes reviewed: nursing
[2018-10-17] MEDS: MAXIPIME/NS 2 GM/100 ML 2 GM/100 ML BAG IV SCH (11:49)
[2018-10-17] MEDS: ROCEPHIN/NS 2 GM/100 ML 2 GM/100 ML BAG IV SCH (12:59)
[2018-10-17] MEDS: FLAGYL PO SCH ×2 (13:01→23:23)
--- NOTE | 2018-10-17 13:08 | Progress Note ---
Assessment and Plan Acute Toxic metabolic encephalopathy Septic Shock Severe Sepsis DKA MALCOLM secondary to vasomotor nephropathy Metabolic acidosis Colostomy Unstagable scaral pressure ulcer POA Afib with RVR Troponemia- Type 2 NSTEMI Anemia of chronic disease Hypokalemia Severe Protein calorie malnutrition - continue to titrate levophed to keep MAP > 65 mmHg - continue volume resuscitation - Heparin drip held re: Anemia not appropriately responsive to transfusions - Surgical evaluation ongoing re: sacral decubitus - continue Sepsis protocol - continue cefepime (BC's grew B-hemolytic strep) - de-escalate per ID recommendations - continue GI & VTE prophylaxis - continue glycemic control with lantus insulin and SSI for target BG 140 to 180 mg/dL - TTE without vegetations - prn CBC re: Anemia (s/p 3 units PRBC's this admission) - PT/OT evaluation ongoing - follow Renal ultrasound - continue fall precautions - Continue GI & VTE prophylaxis - continue mobility protocol for pressure ulcer prophylaxis - continue other care per attending / other consultants ...re-evaluate in am & prn FULL CODE The high probability of a clinically significant, sudden or life threatening deterioration of the [CARDIAC, RENAL, ] system(s) required my full and direct attention, intervention and personal management. The aggregate critical care time was [32] minutes. This time is in addition to time spent performing reported procedures but includes the following: [X] Data Review and interpretation [X] Patient assessment and monitoring of vital signs [X] Documentation [X] Medication orders and management Subjective Date of service: 10/17/18 Principal diagnosis: Acute Toxic metabolic encephalopathy; Septic Shock; Severe Sepsis; DKA Interval history: Patient is seen today for: Acute Toxic metabolic encephalopathy; Septic Shock; Severe Sepsis; DKA Seen and examined at bedside; 24hour events reviewed; nursing and respiratory care staff consulted; no adverse overnight events reported to me; resting peacefully in bed; remains on levophed but about to shut it off; denies chest pains or palpitations; still with elevated WBC; no gross bleeding; No N/V/F/C Objective Vital Signs - 12hr 10/17/18 10/17/18 10/17/18 01:10 01:20 01:30 Temperature Pulse Rate 90 88 88 Pulse Rate [ Anterior Bilateral Throughout] Respiratory 27 H 29 H 28 H Rate Respiratory Rate [Anterior Bilateral Throughout] Blood Pressure 118/73 118/73 104/67 O2 Sat by Pulse 97 97 98 Oximetry 10/17/18 10/17/18 10/17/18 01:40 01:50 02:00 Temperature Pulse Rate 89 88 87 Pulse Rate [ Anterior Bilateral Throughout] Respiratory 22 30 H 25 H Rate Respiratory Rate [Anterior Bilateral Throughout] Blood Pressure 104/67 104/67 100/67 O2 Sat by Pulse 97 98 Oximetry 10/17/18 10/17/18 10/17/18 02:10 02:20 02:30 Temperature Pulse Rate 84 83 83 Pulse Rate [ Anterior Bilateral Throughout] Respiratory 26 H 25 H 24 Rate Respiratory Rate [Anterior Bilateral Throughout] Blood Pressure 100/67 100/67 91/57 O2 Sat by Pulse 97 98 98 Oximetry 10/17/18 10/17/18 10/17/18 02:40 02:50 03:00 Temperature Pulse Rate 84 91 H 92 H Pulse Rate [ Anterior Bilateral Throughout] Respiratory 25 H 17 27 H Rate Respiratory Rate [Anterior Bilateral Throughout] Blood Pressure 91/57 91/57 91/57 O2 Sat by Pulse 98 99 99 Oximetry 10/17/18 10/17/18 10/17/18 03:10 03:20 03:30 Temperature Pulse Rate 91 H 92 H 90 Pulse Rate [ Anterior Bilateral Throughout] Respiratory 16 31 H 26 H Rate Respiratory Rate [Anterior Bilateral Throughout] Blood Pressure 125/78 91/57 91/57 O2 Sat by Pulse 99 98 98 Oximetry 10/17/18 10/17/18 10/17/18 03:40 03:43 03:50 Temperature 98.8 F Pulse Rate 89 89 Pulse Rate [ Anterior Bilateral Throughout] Respiratory 16 35 H Rate Respiratory Rate [Anterior Bilateral Throughout] Blood Pressure 106/69 O2 Sat by Pulse 97 97 Oximetry 10/17/18 10/17/18 10/17/18 04:00 04:10 04:20 Temperature Pulse Rate 91 H 91 H 91 H Pulse Rate [ Anterior Bilateral Throughout] Respiratory 25 H 34 H 29 H Rate Respiratory Rate [Anterior Bilateral Throughout] Blood Pressure 107/71 107/71 107/71 O2 Sat by Pulse 97 97 Oximetry 10/17/18 10/17/18 10/17/18 04:30 04:40 04:50 Temperature Pulse Rate 91 H 92 H 90 Pulse Rate [ Anterior Bilateral Throughout] Respiratory 28 H 14 21 Rate Respiratory Rate [Anterior Bilateral Throughout] Blood Pressure 115/74 115/74 115/74 O2 Sat by Pulse 96 96 97 Oximetry 10/17/18 10/17/18 10/17/18 05:00 05:10 05:20 Temperature Pulse Rate 93 H 90 92 H Pulse Rate [ Anterior Bilateral Throughout] Respiratory 21 14 18 Rate Respiratory Rate [Anterior Bilateral Throughout] Blood Pressure 114/77 114/77 114/77 O2 Sat by Pulse 98 96 97 Oximetry 10/17/18 10/17/18 10/17/18 05:30 05:40 05:50 Temperature Pulse Rate 93 H 93 H 93 H Pulse Rate [ Anterior Bilateral Throughout] Respiratory 13 20 16 Rate Respiratory Rate [Anterior Bilateral Throughout] Blood Pressure 104/72 104/72 104/72 O2 Sat by Pulse 97 97 98 Oximetry 10/17/18 10/17/18 10/17/18 06:00 06:10 06:20 Temperature Pulse Rate 97 H 102 H Pulse Rate [ Anterior Bilateral Throughout] Respiratory 16 12 Rate Respiratory Rate [Anterior Bilateral Throughout] Blood Pressure 104/72 113/78 113/78 O2 Sat by Pulse 98 99 98 Oximetry 10/17/18 10/17/18 10/17/18 06:30 06:40 06:42 Temperature Pulse Rate 104 H 102 H 102 H Pulse Rate [ Anterior Bilateral Throughout] Respiratory 33 H 30 H Rate Respiratory Rate [Anterior Bilateral Throughout] Blood Pressure 121/82 104/72 121/82 O2 Sat by Pulse 98 100 Oximetry 10/17/18 10/17/18 10/17/18 06:50 07:00 07:10 Temperature Pulse Rate 101 H 101 H 97 H Pulse Rate [ Anterior Bilateral Throughout] Respiratory 26 H 32 H 30 H Rate Respiratory Rate [Anterior Bilateral Throughout] Blood Pressure 104/72 110/75 110/75 O2 Sat by Pulse 99 98 97 Oximetry 10/17/18 10/17/18 10/17/18 07:20 07:30 07:31 Temperature Pulse Rate 92 H 91 H Pulse Rate [ Anterior Bilateral Throughout] Respiratory 32 H 29 H Rate Respiratory Rate [Anterior Bilateral Throughout] Blood Pressure 110/75 114/74 O2 Sat by Pulse 98 99 98 Oximetry 10/17/18 10/17/18 10/17/18 07:32 07:40 07:50 Temperature Pulse Rate 90 93 H Pulse Rate [ 90 90 Anterior Bilateral Throughout] Respiratory 34 H 38 H Rate Respiratory 16 16 Rate [Anterior Bilateral Throughout] Blood Pressure 110/75 110/75 O2 Sat by Pulse 99 98 Oximetry 10/17/18 10/17/18 10/17/18 08:00 08:10 08:20 Temperature 97.5 F L Pulse Rate 92 H 91 H 92 H Pulse Rate [ Anterior Bilateral Throughout] Respiratory 32 H 33 H 33 H Rate Respiratory Rate [Anterior Bilateral Throughout] Blood Pressure 95/64 95/64 95/64 O2 Sat by Pulse 98 98 98 Oximetry 10/17/18 10/17/18 10/17/18 08:30 08:40 08:50 Temperature Pulse Rate 87 88 90 Pulse Rate [ Anterior Bilateral Throughout] Respiratory 29 H 31 H 35 H Rate Respiratory Rate [Anterior Bilateral Throughout] Blood Pressure 92/60 92/60 92/60 O2 Sat by Pulse 97 97 97 Oximetry 10/17/18 10/17/18 10/17/18 09:00 09:10 09:20 Temperature Pulse Rate 87 86 85 Pulse Rate [ Anterior Bilateral Throughout] Respiratory 33 H 34 H 29 H Rate Respiratory Rate [Anterior Bilateral Throughout] Blood Pressure 92/60 92/60 92/60 O2 Sat by Pulse 96 96 96 Oximetry 10/17/18 10/17/18 10/17/18 09:30 09:40 09:50 Temperature Pulse Rate 101 H 90 86 Pulse Rate [ Anterior Bilateral Throughout] Respiratory 13 17 28 H Rate Respiratory Rate [Anterior Bilateral Throughout] Blood Pressure 92/60 101/69 101/69 O2 Sat by Pulse 97 96 95 Oximetry 10/17/18 10/17/18 10/17/18 10:00 10:10 10:20 Temperature Pulse Rate 87 85 92 H Pulse Rate [ Anterior Bilateral Throughout] Respiratory 32 H 32 H 23 Rate Respiratory Rate [Anterior Bilateral Throughout] Blood Pressure 101/66 101/66 101/66 O2 Sat by Pulse 95 94 Oximetry 10/17/18 10/17/18 10/17/18 10:30 10:40 10:50 Temperature Pulse Rate 91 H 98 H 88 Pulse Rate [ Anterior Bilateral Throughout] Respiratory 10 L 29 H 30 H Rate Respiratory Rate [Anterior Bilateral Throughout] Blood Pressure 101/66 110/68 110/68 O2 Sat by Pulse 97 97 97 Oximetry 10/17/18 10/17/18 10/17/18 11:00 11:10 11:20 Temperature Pulse Rate 88 88 86 Pulse Rate [ Anterior Bilateral Throughout] Respiratory 32 H 18 30 H Rate Respiratory Rate [Anterior Bilateral Throughout] Blood Pressure 95/65 95/65 95/65 O2 Sat by Pulse 97 98 97 Oximetry 10/17/18 10/17/18 10/17/18 11:30 11:40 12:00 Temperature 98.8 F Pulse Rate 86 85 Pulse Rate [ Anterior Bilateral Throughout] Respiratory 30 H 31 H Rate Respiratory Rate [Anterior Bilateral Throughout] Blood Pressure 101/64 101/64 O2 Sat by Pulse 97 97 Oximetry 10/17/18 13:00 Temperature Pulse Rate 90 Pulse Rate [ Anterior Bilateral Throughout] Respiratory Rate Respiratory Rate [Anterior Bilateral Throughout] Blood Pressure 95/47 O2 Sat by Pulse Oximetry Constitutional: alert, appears uncomfortable, other (elderly looking AAM, normocephalic and atraumatic with mildly increased resp effort at rest) Eyes: non-icteric ENT: oropharynx dry, other (Mallampati 2) Neck: supple, no lymphadenopathy, no JVD Effort: mildly labored Ascultation: Bilateral: clear Percussion: Bilateral: not dull Cardiovascular: irregular rhythm, other (No R/M) Gastrointestinal: hypoactive bowel sounds, soft, non-tender, non-distended Integumentary: rash, decubitus ulcer (sacral) Extremities: no cyanosis, no edema, pulses normal, no ischemia or petechiae Neurologic: normal mental status, non-focal exam (grossly), pupils equal and round, other (weak lower extremities) Psychiatric: mood appropriate, affect normal CBC and BMP: 10/18/18 04:39 10/18/18 08:11 ABG, PT/INR, D-dimer: ABG POC ABG pH 7.380 (7.35-7.45) 10/11/18 17:53 POC ABG pCO2 28.2 (35-45) L 10/11/18 17:53 POC ABG pO2 60 (80-105) L 10/11/18 17:53 POC ABG HCO3 16.7 10/11/18 17:53 POC ABG Total CO2 18 10/11/18 17:53 POC ABG O2 Sat 91 10/11/18 17:53 PT/INR, D-dimer PT 20.9 Sec. (12.2-14.9) H 10/17/18 04:52 INR 1.76 (0.87-1.13) H 10/17/18 04:52 Abnormal lab findings: Abnormal Labs 10/11/18 10/11/18 10/11/18 05:21 05:21 05:21 WBC 22.3 H RBC 2.62 L Hgb 8.0 L Hct 24.5 L MCHC RDW 16.0 H Seg Neuts % (Manual) 90.0 H Lymphocytes % (Manual) 4.0 L Seg Neutrophils # Man 20.1 H Lymphocytes # (Manual) 0.9 L PT 17.1 H INR 1.35 H POC ABG pCO2 POC ABG pO2 VBG pH Sodium 133 L Potassium 2.8 L* Chloride 94.5 L Carbon Dioxide 11 L BUN 69 H Creatinine 5.0 H Glucose 362 H POC Glucose Lactic Acid Calcium 7.4 L Phosphorus Magnesium Alkaline Phosphatase Total Creatine Kinase Troponin T 0.116 H* Total Protein 6.2 L Albumin 2.1 L Cholesterol 26 L LDL Cholesterol Direct 4 L HDL Cholesterol 7 L Urine WBC (Auto) Crossmatch 10/11/18 10/11/18 10/11/18 05:21 05:21 05:21 WBC RBC Hgb Hct MCHC RDW Seg Neuts % (Manual) Lymphocytes % (Manual) Seg Neutrophils # Man Lymphocytes # (Manual) PT INR POC ABG pCO2 POC ABG pO2 VBG pH 7.226 L Sodium Potassium Chloride Carbon Dioxide BUN Creatinine Glucose POC Glucose Lactic Acid 7.40 H* Calcium Phosphorus Magnesium Alkaline Phosphatase Total Creatine Kinase 1094 H Troponin T Total Protein Albumin Cholesterol LDL Cholesterol Direct HDL Cholesterol Urine WBC (Auto) Crossmatch 10/11/18 10/11/18 10/11/18 06:08 06:51 06:51 WBC RBC Hgb Hct MCHC RDW Seg Neuts % (Manual) Lymphocytes % (Manual) Seg Neutrophils # Man Lymphocytes # (Manual) PT INR POC ABG pCO2 POC ABG pO2 VBG pH Sodium 132 L Potassium 3.1 L Chloride 94.3 L Carbon Dioxide 10 L BUN 68 H Creatinine 5.8 H Glucose 402 H POC Glucose Lactic Acid 7.80 H* Calcium 7.8 L Phosphorus 4.80 H Magnesium 0.90 L* Alkaline Phosphatase Total Creatine Kinase Troponin T Total Protein Albumin Cholesterol LDL Cholesterol Direct HDL Cholesterol Urine WBC (Auto) > 182.0 H Crossmatch 10/11/18 10/11/18 10/11/18 08:56 09:05 10:23 WBC RBC Hgb Hct MCHC RDW Seg Neuts % (Manual) Lymphocytes % (Manual) Seg Neutrophils # Man Lymphocytes # (Manual) PT INR POC ABG pCO2 POC ABG pO2 VBG pH Sodium Potassium Chloride Carbon Dioxide BUN Creatinine Glucose POC Glucose 367 H 305 H Lactic Acid Calcium Phosphorus Magnesium Alkaline Phosphatase Total Creatine Kinase Troponin T Total Protein Albumin Cholesterol LDL Cholesterol Direct HDL Cholesterol Urine WBC (Auto) Crossmatch See Detail 10/11/18 10/11/18 10/11/18 11:12 12:17 12:18 WBC RBC Hgb Hct MCHC RDW Seg Neuts % (Manual) Lymphocytes % (Manual) Seg Neutrophils # Man Lymphocytes # (Manual) PT INR POC ABG pCO2 POC ABG pO2 VBG pH Sodium 135 L Potassium 2.8 L* Chloride 97.9 L Carbon Dioxide 14 L BUN 67 H Creatinine 6.0 H Glucose 246 H POC Glucose 299 H 261 H Lactic Acid Calcium 7.5 L Phosphorus Magnesium Alkaline Phosphatase Total Creatine Kinase 1110 H Troponin T Total Protein Albumin Cholesterol LDL Cholesterol Direct HDL Cholesterol Urine WBC (Auto) Crossmatch 10/11/18 10/11/18 10/11/18 13:05 14:13 14:34 WBC RBC Hgb Hct MCHC RDW Seg Neuts % (Manual) Lymphocytes % (Manual) Seg Neutrophils # Man Lymphocytes # (Manual) PT INR POC ABG pCO2 POC ABG pO2 VBG pH Sodium 135 L Potassium 2.7 L* Chloride Carbon Dioxide 18 L BUN 68 H Creatinine 5.0 H Glucose 191 H POC Glucose 251 H 233 H Lactic Acid Calcium 7.1 L Phosphorus Magnesium Alkaline Phosphatase Total Creatine Kinase Troponin T Total Protein Albumin Cholesterol LDL Cholesterol Direct HDL Cholesterol Urine WBC (Auto) Crossmatch 10/11/18 10/11/18 10/11/18 15:08 16:00 17:20 WBC RBC Hgb Hct MCHC RDW Seg Neuts % (Manual) Lymphocytes % (Manual) Seg Neutrophils # Man Lymphocytes # (Manual) PT INR POC ABG pCO2 POC ABG pO2 VBG pH Sodium Potassium Chloride Carbon Dioxide BUN Creatinine Glucose POC Glucose 213 H 224 H 187 H Lactic Acid Calcium Phosphorus Magnesium Alkaline Phosphatase Total Creatine Kinase Troponin T Total Protein Albumin Cholesterol LDL Cholesterol Direct HDL Cholesterol Urine WBC (Auto) Crossmatch 10/11/18 10/11/18 10/11/18 17:53 17:58 18:12 WBC RBC Hgb Hct MCHC RDW Seg Neuts % (Manual) Lymphocytes % (Manual) Seg Neutrophils # Man Lymphocytes # (Manual) PT INR POC ABG pCO2 28.2 L POC ABG pO2 60 L VBG pH Sodium Potassium Chloride Carbon Dioxide BUN Creatinine Glucose POC Glucose 189 H Lactic Acid Calcium Phosphorus Magnesium Alkaline Phosphatase Total Creatine Kinase 933 H Troponin T Total Protein Albumin Cholesterol LDL Cholesterol Direct HDL Cholesterol Urine WBC (Auto) Crossmatch 10/11/18 10/11/18 10/11/18 18:58 20:16 21:10 WBC RBC Hgb Hct MCHC RDW Seg Neuts % (Manual) Lymphocytes % (Manual) Seg Neutrophils # Man Lymphocytes # (Manual) PT INR POC ABG pCO2 POC ABG pO2 VBG pH Sodium Potassium Chloride Carbon Dioxide BUN Creatinine Glucose POC Glucose 192 H 179 H 160 H Lactic Acid Calcium Phosphorus Magnesium Alkaline Phosphatase Total Creatine Kinase Troponin T Total Protein Albumin Cholesterol LDL Cholesterol Direct HDL Cholesterol Urine WBC (Auto) Crossmatch 10/11/18 10/11/18 10/11/18 22:14 22:42 23:09 WBC RBC Hgb Hct MCHC RDW Seg Neuts % (Manual) Lymphocytes % (Manual) Seg Neutrophils # Man Lymphocytes # (Manual) PT INR POC ABG pCO2 POC ABG pO2 VBG pH Sodium 136 L Potassium 2.9 L* Chloride Carbon Dioxide 17 L BUN 61 H Creatinine 4.0 H Glucose 122 H POC Glucose 145 H 129 H Lactic Acid Calcium 6.6 L Phosphorus Magnesium Alkaline Phosphatase Total Creatine Kinase Troponin T Total Protein Albumin Cholesterol LDL Cholesterol Direct HDL Cholesterol Urine WBC (Auto) Crossmatch 10/11/18 10/11/18 10/11/18 Unknown Unknown Unknown WBC RBC Hgb Hct MCHC RDW Seg Neuts % (Manual) Lymphocytes % (Manual) Seg Neutrophils # Man Lymphocytes # (Manual) PT INR POC ABG pCO2 POC ABG pO2 VBG pH Sodium 133 L Potassium 3.0 L Chloride 93.7 L Carbon Dioxide 9 L* BUN 67 H Creatinine 5.9 H Glucose 406 H POC Glucose Lactic Acid 8.50 H* Calcium 7.6 L Phosphorus Magnesium Alkaline Phosphatase Total Creatine Kinase Troponin T Total Protein Albumin Cholesterol LDL Cholesterol Direct HDL Cholesterol Urine WBC (Auto) > 182.0 H Crossmatch 10/12/18 10/12/18 10/12/18 00:18 01:42 02:03 WBC RBC Hgb Hct MCHC RDW Seg Neuts % (Manual) Lymphocytes % (Manual) Seg Neutrophils # Man Lymphocytes # (Manual) PT INR POC ABG pCO2 POC ABG pO2 VBG pH Sodium Potassium Chloride Carbon Dioxide BUN Creatinine Glucose POC Glucose 113 H 51 L 116 H Lactic Acid Calcium Phosphorus Magnesium Alkaline Phosphatase Total Creatine Kinase Troponin T Total Protein Albumin Cholesterol LDL Cholesterol Direct HDL Cholesterol Urine WBC (Auto) Crossmatch 10/12/18 10/12/18 10/12/18 03:09 04:20 04:20 WBC 26.8 H RBC 2.22 L Hgb 6.7 L Hct 19.4 L* MCHC 35 H RDW 15.8 H Seg Neuts % (Manual) Lymphocytes % (Manual) Seg Neutrophils # Man Lymphocytes # (Manual) PT INR POC ABG pCO2 POC ABG pO2 VBG pH Sodium Potassium 2.6 L* Chloride Carbon Dioxide 20 L BUN 56 H Creatinine 4.0 H Glucose 134 H POC Glucose 129 H Lactic Acid Calcium 6.4 L Phosphorus Magnesium 1.30 L Alkaline Phosphatase Total Creatine Kinase Troponin T Total Protein 5.8 L Albumin 1.8 L Cholesterol LDL Cholesterol Direct HDL Cholesterol Urine WBC (Auto) Crossmatch 10/12/18 10/12/18 10/12/18 04:22 05:25 06:25 WBC RBC Hgb Hct MCHC RDW Seg Neuts % (Manual) Lymphocytes % (Manual) Seg Neutrophils # Man Lymphocytes # (Manual) PT INR POC ABG pCO2 POC ABG pO2 VBG pH Sodium Potassium 2.7 L* Chloride Carbon Dioxide 19 L BUN 51 H Creatinine 3.6 H Glucose 113 H POC Glucose 186 H 131 H Lactic Acid Calcium 6.4 L Phosphorus Magnesium Alkaline Phosphatase Total Creatine Kinase Troponin T Total Protein Albumin Cholesterol LDL Cholesterol Direct HDL Cholesterol Urine WBC (Auto) Crossmatch 10/12/18 10/12/18 10/12/18 07:34 08:28 09:29 WBC RBC Hgb Hct MCHC RDW Seg Neuts % (Manual) Lymphocytes % (Manual) Seg Neutrophils # Man Lymphocytes # (Manual) PT INR POC ABG pCO2 POC ABG pO2 VBG pH Sodium Potassium Chloride Carbon Dioxide BUN Creatinine Glucose POC Glucose 120 H 110 H 140 H Lactic Acid Calcium Phosphorus Magnesium Alkaline Phosphatase Total Creatine Kinase Troponin T Total Protein Albumin Cholesterol LDL Cholesterol Direct HDL Cholesterol Urine WBC (Auto) Crossmatch 10/12/18 10/12/18 10/12/18 11:55 12:55 12:55 WBC RBC Hgb 7.1 L Hct 20.6 L MCHC RDW Seg Neuts % (Manual) Lymphocytes % (Manual) Seg Neutrophils # Man Lymphocytes # (Manual) PT INR POC ABG pCO2 POC ABG pO2 VBG pH Sodium 136 L Potassium 2.9 L* Chloride Carbon Dioxide 16 L BUN 48 H Creatinine 3.1 H Glucose 258 H POC Glucose 219 H Lactic Acid Calcium 6.3 L Phosphorus Magnesium Alkaline Phosphatase Total Creatine Kinase Troponin T Total Protein Albumin Cholesterol LDL Cholesterol Direct HDL Cholesterol Urine WBC (Auto) Crossmatch 10/12/18 10/12/18 10/12/18 12:55 17:49 19:23 WBC RBC Hgb 7.7 L Hct 22.9 L MCHC RDW Seg Neuts % (Manual) Lymphocytes % (Manual) Seg Neutrophils # Man Lymphocytes # (Manual) PT INR POC ABG pCO2 POC ABG pO2 VBG pH Sodium Potassium Chloride Carbon Dioxide BUN Creatinine Glucose POC Glucose 344 H Lactic Acid Calcium Phosphorus Magnesium 4.80 H Alkaline Phosphatase Total Creatine Kinase Troponin T Total Protein Albumin Cholesterol LDL Cholesterol Direct HDL Cholesterol Urine WBC (Auto) Crossmatch 10/12/18 10/13/18 10/13/18 22:21 00:15 05:28 WBC RBC Hgb Hct MCHC RDW Seg Neuts % (Manual) Lymphocytes % (Manual) Seg Neutrophils # Man Lymphocytes # (Manual) PT INR POC ABG pCO2 POC ABG pO2 VBG pH Sodium Potassium Chloride Carbon Dioxide BUN Creatinine Glucose POC Glucose 367 H 392 H 356 H Lactic Acid Calcium Phosphorus Magnesium Alkaline Phosphatase Total Creatine Kinase Troponin T Total Protein Albumin Cholesterol LDL Cholesterol Direct HDL Cholesterol Urine WBC (Auto) Crossmatch 10/13/18 10/13/18 10/13/18 05:30 05:30 06:37 WBC 19.2 H RBC 2.67 L Hgb 7.9 L Hct 23.2 L MCHC RDW 16.4 H Seg Neuts % (Manual) Lymphocytes % (Manual) Seg Neutrophils # Man Lymphocytes # (Manual) PT INR POC ABG pCO2 POC ABG pO2 VBG pH Sodium 135 L Potassium 2.8 L* Chloride Carbon Dioxide 17 L BUN 37 H Creatinine 2.0 H Glucose 383 H POC Glucose 413 H Lactic Acid Calcium 6.6 L Phosphorus Magnesium Alkaline Phosphatase Total Creatine Kinase Troponin T Total Protein Albumin Cholesterol LDL Cholesterol Direct HDL Cholesterol Urine WBC (Auto) Crossmatch 10/13/18 10/13/18 10/13/18 11:15 12:46 17:47 WBC RBC Hgb Hct MCHC RDW Seg Neuts % (Manual) Lymphocytes % (Manual) Seg Neutrophils # Man Lymphocytes # (Manual) PT INR POC ABG pCO2 POC ABG pO2 VBG pH Sodium Potassium 3.2 L Chloride Carbon Dioxide BUN Creatinine Glucose POC Glucose 220 H 181 H Lactic Acid Calcium Phosphorus Magnesium Alkaline Phosphatase Total Creatine Kinase Troponin T Total Protein Albumin Cholesterol LDL Cholesterol Direct HDL Cholesterol Urine WBC (Auto) Crossmatch 10/13/18 10/13/18 10/13/18 19:45 22:19 23:53 WBC RBC Hgb Hct MCHC RDW Seg Neuts % (Manual) Lymphocytes % (Manual) Seg Neutrophils # Man Lymphocytes # (Manual) PT INR POC ABG pCO2 POC ABG pO2 VBG pH Sodium Potassium Chloride Carbon Dioxide BUN Creatinine Glucose POC Glucose 185 H 153 H 152 H Lactic Acid Calcium Phosphorus Magnesium Alkaline Phosphatase Total Creatine Kinase Troponin T Total Protein Albumin Cholesterol LDL Cholesterol Direct HDL Cholesterol Urine WBC (Auto) Crossmatch 10/14/18 10/14/18 10/14/18 02:38 04:36 04:36 WBC 19.8 H RBC 3.02 L Hgb 8.9 L Hct 26.1 L MCHC RDW 16.7 H Seg Neuts % (Manual) Lymphocytes % (Manual) Seg Neutrophils # Man Lymphocytes # (Manual) PT INR POC ABG pCO2 POC ABG pO2 VBG pH Sodium Potassium 2.9 L* Chloride 121.6 H Carbon Dioxide 16 L BUN 25 H Creatinine 1.6 H Glucose 117 H POC Glucose 142 H Lactic Acid Calcium 7.0 L Phosphorus Magnesium Alkaline Phosphatase Total Creatine Kinase Troponin T Total Protein Albumin Cholesterol LDL Cholesterol Direct HDL Cholesterol Urine WBC (Auto) Crossmatch 10/14/18 10/14/18 10/14/18 04:36 09:45 10:59 WBC RBC Hgb Hct MCHC RDW Seg Neuts % (Manual) Lymphocytes % (Manual) Seg Neutrophils # Man Lymphocytes # (Manual) PT INR POC ABG pCO2 POC ABG pO2 VBG pH Sodium Potassium 3.2 L Chloride Carbon Dioxide BUN Creatinine Glucose POC Glucose 110 H Lactic Acid Calcium Phosphorus Magnesium 1.20 L Alkaline Phosphatase Total Creatine Kinase Troponin T Total Protein Albumin Cholesterol LDL Cholesterol Direct HDL Cholesterol Urine WBC (Auto) Crossmatch 10/14/18 10/14/18 10/14/18 14:22 17:41 22:58 WBC RBC Hgb Hct MCHC RDW Seg Neuts % (Manual) Lymphocytes % (Manual) Seg Neutrophils # Man Lymphocytes # (Manual) PT INR POC ABG pCO2 POC ABG pO2 VBG pH Sodium Potassium Chloride Carbon Dioxide BUN Creatinine Glucose POC Glucose 106 H 116 H 134 H Lactic Acid Calcium Phosphorus Magnesium Alkaline Phosphatase Total Creatine Kinase Troponin T Total Protein Albumin Cholesterol LDL Cholesterol Direct HDL Cholesterol Urine WBC (Auto) Crossmatch 10/15/18 10/15/18 10/15/18 06:14 11:21 11:21 WBC 31.9 H RBC 2.99 L Hgb 8.6 L Hct 26.4 L MCHC RDW 16.9 H Seg Neuts % (Manual) 92.0 H Lymphocytes % (Manual) 7.0 L Seg Neutrophils # Man 29.3 H Lymphocytes # (Manual) PT INR POC ABG pCO2 POC ABG pO2 VBG pH Sodium Potassium Chloride 111.6 H Carbon Dioxide 14 L BUN Creatinine Glucose 175 H POC Glucose 184 H Lactic Acid Calcium 7.2 L Phosphorus Magnesium Alkaline Phosphatase Total Creatine Kinase Troponin T Total Protein Albumin Cholesterol LDL Cholesterol Direct HDL Cholesterol Urine WBC (Auto) Crossmatch 10/15/18 10/15/18 10/15/18 11:21 11:27 14:43 WBC RBC Hgb Hct MCHC RDW Seg Neuts % (Manual) Lymphocytes % (Manual) Seg Neutrophils # Man Lymphocytes # (Manual) PT INR POC ABG pCO2 POC ABG pO2 VBG pH Sodium Potassium Chloride Carbon Dioxide BUN Creatinine Glucose POC Glucose 197 H 174 H Lactic Acid Calcium Phosphorus Magnesium 1.30 L Alkaline Phosphatase Total Creatine Kinase Troponin T Total Protein Albumin Cholesterol LDL Cholesterol Direct HDL Cholesterol Urine WBC (Auto) Crossmatch 10/15/18 10/15/18 10/15/18 16:06 20:13 23:55 WBC RBC Hgb Hct MCHC RDW Seg Neuts % (Manual) Lymphocytes % (Manual) Seg Neutrophils # Man Lymphocytes # (Manual) PT 26.5 H INR 2.40 H POC ABG pCO2 POC ABG pO2 VBG pH Sodium Potassium Chloride Carbon Dioxide BUN Creatinine Glucose POC Glucose 131 H 132 H Lactic Acid Calcium Phosphorus Magnesium Alkaline Phosphatase Total Creatine Kinase Troponin T Total Protein Albumin Cholesterol LDL Cholesterol Direct HDL Cholesterol Urine WBC (Auto) Crossmatch 10/16/18 10/16/18 10/16/18 05:08 05:08 05:08 WBC 29.6 H RBC 2.99 L Hgb 8.7 L Hct 27.7 L MCHC RDW 17.9 H Seg Neuts % (Manual) Lymphocytes % (Manual) Seg Neutrophils # Man Lymphocytes # (Manual) PT INR POC ABG pCO2 POC ABG pO2 VBG pH Sodium Potassium Chloride 119.9 H Carbon Dioxide 12 L BUN Creatinine Glucose 116 H POC Glucose Lactic Acid Calcium 6.7 L Phosphorus Magnesium 1.50 L Alkaline Phosphatase Total Creatine Kinase Troponin T Total Protein Albumin Cholesterol LDL Cholesterol Direct HDL Cholesterol Urine WBC (Auto) Crossmatch 10/16/18 10/16/18 10/16/18 05:08 05:49 17:44 WBC RBC Hgb Hct MCHC RDW Seg Neuts % (Manual) Lymphocytes % (Manual) Seg Neutrophils # Man Lymphocytes # (Manual) PT 22.2 H INR 1.90 H POC ABG pCO2 POC ABG pO2 VBG pH Sodium Potassium Chloride Carbon Dioxide BUN Creatinine Glucose POC Glucose 118 H 50 L Lactic Acid Calcium Phosphorus Magnesium Alkaline Phosphatase Total Creatine Kinase Troponin T Total Protein Albumin Cholesterol LDL Cholesterol Direct HDL Cholesterol Urine WBC (Auto) Crossmatch 10/16/18 10/16/18 10/17/18 18:29 19:33 00:04 WBC RBC Hgb Hct MCHC RDW Seg Neuts % (Manual) Lymphocytes % (Manual) Seg Neutrophils # Man Lymphocytes # (Manual) PT INR POC ABG pCO2 POC ABG pO2 VBG pH Sodium Potassium Chloride Carbon Dioxide BUN Creatinine Glucose POC Glucose 60 L 118 H 181 H Lactic Acid Calcium Phosphorus Magnesium Alkaline Phosphatase Total Creatine Kinase Troponin T Total Protein Albumin Cholesterol LDL Cholesterol Direct HDL Cholesterol Urine WBC (Auto) Crossmatch 10/17/18 10/17/18 10/17/18 04:52 04:52 05:26 WBC RBC Hgb Hct MCHC RDW Seg Neuts % (Manual) Lymphocytes % (Manual) Seg Neutrophils # Man Lymphocytes # (Manual) PT 20.9 H INR 1.76 H POC ABG pCO2 POC ABG pO2 VBG pH Sodium Potassium Chloride 113.4 H Carbon Dioxide 14 L BUN Creatinine Glucose 118 H POC Glucose 135 H Lactic Acid Calcium 7.0 L Phosphorus Magnesium Alkaline Phosphatase 219 H Total Creatine Kinase Troponin T Total Protein 5.5 L Albumin 1.3 L Cholesterol LDL Cholesterol Direct HDL Cholesterol Urine WBC (Auto) Crossmatch 10/17/18 12:15 WBC RBC Hgb Hct MCHC RDW Seg Neuts % (Manual) Lymphocytes % (Manual) Seg Neutrophils # Man Lymphocytes # (Manual) PT INR POC ABG pCO2 POC ABG pO2 VBG pH Sodium Potassium Chloride Carbon Dioxide BUN Creatinine Glucose POC Glucose 165 H Lactic Acid Calcium Phosphorus Magnesium Alkaline Phosphatase Total Creatine Kinase Troponin T Total Protein Albumin Cholesterol LDL Cholesterol Direct HDL Cholesterol Urine WBC (Auto) Crossmatch Allied health notes reviewed: nursing
--- NOTE | 2018-10-17 15:24 | Progress Note ---
Assessment and Plan Impression: * Acute kidney secondary to ATN * Sepsis - ?urinary source --Blood cx - NGTD --Urine cx - greater than 2 organisms * Metabolic acidosis secondary to lactic acidosis * UTI * Hypokalemia * hypomagnesemia * Anemia Plan: * Renal function improved - SCr trending down * replete mag prn * restart k with Bicarb gtt, increase bicarb administration * added po sodium bicarb * Replete K prn - note orders * Abx per primary team * Transfusion per primary team - pRBC transfusion in progress * Replete lytes prn * Dose medications for renal function * Avoid potential nephrotoxins Subjective Date of service: 10/17/18 Principal diagnosis: Acute Toxic metabolic encephalopathy; Septic Shock; Severe Sepsis; DKA Interval history: resting well in bed today Objective - Exam Narrative Exam: General appearance: chronically ill EENT: other (poor dentition) Respiratory: Present: Clear to Ascultation Cardiology: regular, tachycardia Gastrointestinal: other (ostomy) Integumentary: no rash Psychiatric: cooperative - Vital Signs Vital signs: Vital Signs - 12hr 10/17/18 10/17/18 10/17/18 03:30 03:40 03:43 Temperature 98.8 F Pulse Rate 90 89 Pulse Rate [ Anterior Bilateral Throughout] Respiratory 26 H 16 Rate Respiratory Rate [Anterior Bilateral Throughout] Blood Pressure 91/57 106/69 O2 Sat by Pulse 98 97 Oximetry 10/17/18 10/17/18 10/17/18 03:50 04:00 04:10 Temperature Pulse Rate 89 91 H 91 H Pulse Rate [ Anterior Bilateral Throughout] Respiratory 35 H 25 H 34 H Rate Respiratory Rate [Anterior Bilateral Throughout] Blood Pressure 107/71 107/71 O2 Sat by Pulse 97 97 Oximetry 10/17/18 10/17/18 10/17/18 04:20 04:30 04:40 Temperature Pulse Rate 91 H 91 H 92 H Pulse Rate [ Anterior Bilateral Throughout] Respiratory 29 H 28 H 14 Rate Respiratory Rate [Anterior Bilateral Throughout] Blood Pressure 107/71 115/74 115/74 O2 Sat by Pulse 97 96 96 Oximetry 10/17/18 10/17/18 10/17/18 04:50 05:00 05:10 Temperature Pulse Rate 90 93 H 90 Pulse Rate [ Anterior Bilateral Throughout] Respiratory 21 21 14 Rate Respiratory Rate [Anterior Bilateral Throughout] Blood Pressure 115/74 114/77 114/77 O2 Sat by Pulse 97 98 96 Oximetry 10/17/18 10/17/18 10/17/18 05:20 05:30 05:40 Temperature Pulse Rate 92 H 93 H 93 H Pulse Rate [ Anterior Bilateral Throughout] Respiratory 18 13 20 Rate Respiratory Rate [Anterior Bilateral Throughout] Blood Pressure 114/77 104/72 104/72 O2 Sat by Pulse 97 97 97 Oximetry 10/17/18 10/17/18 10/17/18 05:50 06:00 06:10 Temperature Pulse Rate 93 H 97 H 102 H Pulse Rate [ Anterior Bilateral Throughout] Respiratory 16 16 12 Rate Respiratory Rate [Anterior Bilateral Throughout] Blood Pressure 104/72 104/72 113/78 O2 Sat by Pulse 98 98 99 Oximetry 10/17/18 10/17/18 10/17/18 06:20 06:30 06:40 Temperature Pulse Rate 104 H 102 H Pulse Rate [ Anterior Bilateral Throughout] Respiratory 33 H 30 H Rate Respiratory Rate [Anterior Bilateral Throughout] Blood Pressure 113/78 121/82 104/72 O2 Sat by Pulse 98 98 100 Oximetry 10/17/18 10/17/18 10/17/18 06:42 06:50 07:00 Temperature Pulse Rate 102 H 101 H 101 H Pulse Rate [ Anterior Bilateral Throughout] Respiratory 26 H 32 H Rate Respiratory Rate [Anterior Bilateral Throughout] Blood Pressure 121/82 104/72 110/75 O2 Sat by Pulse 99 98 Oximetry 10/17/18 10/17/18 10/17/18 07:10 07:20 07:30 Temperature Pulse Rate 97 H 92 H 91 H Pulse Rate [ Anterior Bilateral Throughout] Respiratory 30 H 32 H 29 H Rate Respiratory Rate [Anterior Bilateral Throughout] Blood Pressure 110/75 110/75 114/74 O2 Sat by Pulse 97 98 99 Oximetry 10/17/18 10/17/18 10/17/18 07:31 07:32 07:40 Temperature Pulse Rate 90 Pulse Rate [ 90 Anterior Bilateral Throughout] Respiratory 34 H Rate Respiratory 16 Rate [Anterior Bilateral Throughout] Blood Pressure 110/75 O2 Sat by Pulse 98 99 Oximetry 10/17/18 10/17/18 10/17/18 07:50 08:00 08:10 Temperature 97.5 F L Pulse Rate 93 H 92 H 91 H Pulse Rate [ 90 Anterior Bilateral Throughout] Respiratory 38 H 32 H 33 H Rate Respiratory 16 Rate [Anterior Bilateral Throughout] Blood Pressure 110/75 95/64 95/64 O2 Sat by Pulse 98 98 98 Oximetry 10/17/18 10/17/18 10/17/18 08:20 08:30 08:40 Temperature Pulse Rate 92 H 87 88 Pulse Rate [ Anterior Bilateral Throughout] Respiratory 33 H 29 H 31 H Rate Respiratory Rate [Anterior Bilateral Throughout] Blood Pressure 95/64 92/60 92/60 O2 Sat by Pulse 98 97 97 Oximetry 10/17/18 10/17/18 10/17/18 08:50 09:00 09:10 Temperature Pulse Rate 90 87 86 Pulse Rate [ Anterior Bilateral Throughout] Respiratory 35 H 33 H 34 H Rate Respiratory Rate [Anterior Bilateral Throughout] Blood Pressure 92/60 92/60 92/60 O2 Sat by Pulse 97 96 96 Oximetry 10/17/18 10/17/18 10/17/18 09:20 09:30 09:40 Temperature Pulse Rate 85 101 H 90 Pulse Rate [ Anterior Bilateral Throughout] Respiratory 29 H 13 17 Rate Respiratory Rate [Anterior Bilateral Throughout] Blood Pressure 92/60 92/60 101/69 O2 Sat by Pulse 96 97 96 Oximetry 10/17/18 10/17/18 10/17/18 09:50 10:00 10:10 Temperature Pulse Rate 86 87 85 Pulse Rate [ Anterior Bilateral Throughout] Respiratory 28 H 32 H 32 H Rate Respiratory Rate [Anterior Bilateral Throughout] Blood Pressure 101/69 101/66 101/66 O2 Sat by Pulse 95 95 Oximetry 10/17/18 10/17/18 10/17/18 10:20 10:30 10:40 Temperature Pulse Rate 92 H 91 H 98 H Pulse Rate [ Anterior Bilateral Throughout] Respiratory 23 10 L 29 H Rate Respiratory Rate [Anterior Bilateral Throughout] Blood Pressure 101/66 101/66 110/68 O2 Sat by Pulse 94 97 97 Oximetry 10/17/18 10/17/18 10/17/18 10:50 11:00 11:10 Temperature Pulse Rate 88 88 88 Pulse Rate [ Anterior Bilateral Throughout] Respiratory 30 H 32 H 18 Rate Respiratory Rate [Anterior Bilateral Throughout] Blood Pressure 110/68 95/65 95/65 O2 Sat by Pulse 97 97 98 Oximetry 10/17/18 10/17/18 10/17/18 11:20 11:30 11:40 Temperature Pulse Rate 86 86 85 Pulse Rate [ Anterior Bilateral Throughout] Respiratory 30 H 30 H 31 H Rate Respiratory Rate [Anterior Bilateral Throughout] Blood Pressure 95/65 101/64 101/64 O2 Sat by Pulse 97 97 97 Oximetry 10/17/18 10/17/18 10/17/18 11:50 12:00 12:10 Temperature 98.8 F Pulse Rate 85 85 87 Pulse Rate [ Anterior Bilateral Throughout] Respiratory 29 H 30 H 32 H Rate Respiratory Rate [Anterior Bilateral Throughout] Blood Pressure 101/64 101/64 101/64 O2 Sat by Pulse 97 97 97 Oximetry 10/17/18 10/17/18 10/17/18 12:20 12:30 12:40 Temperature Pulse Rate 98 H 96 H 88 Pulse Rate [ Anterior Bilateral Throughout] Respiratory 32 H 29 H 15 Rate Respiratory Rate [Anterior Bilateral Throughout] Blood Pressure 101/64 97/68 97/68 O2 Sat by Pulse 97 97 Oximetry 10/17/18 10/17/18 10/17/18 12:50 13:00 13:10 Temperature Pulse Rate 87 91 H 89 Pulse Rate [ Anterior Bilateral Throughout] Respiratory 36 H 24 25 H Rate Respiratory Rate [Anterior Bilateral Throughout] Blood Pressure 97/68 97/68 98/71 O2 Sat by Pulse 98 98 98 Oximetry 10/17/18 10/17/18 10/17/18 13:20 13:30 13:40 Temperature Pulse Rate 88 86 86 Pulse Rate [ Anterior Bilateral Throughout] Respiratory 28 H 31 H 35 H Rate Respiratory Rate [Anterior Bilateral Throughout] Blood Pressure 98/71 98/71 104/71 O2 Sat by Pulse 98 97 97 Oximetry 10/17/18 10/17/18 10/17/18 13:50 14:00 14:10 Temperature Pulse Rate 89 87 86 Pulse Rate [ Anterior Bilateral Throughout] Respiratory 33 H 31 H 33 H Rate Respiratory Rate [Anterior Bilateral Throughout] Blood Pressure 104/71 102/67 102/67 O2 Sat by Pulse 97 96 96 Oximetry 10/17/18 10/17/18 14:51 15:00 Temperature Pulse Rate Pulse Rate [ 87 86 Anterior Bilateral Throughout] Respiratory Rate Respiratory 25 H 22 Rate [Anterior Bilateral Throughout] Blood Pressure O2 Sat by Pulse Oximetry - Lab 10/16/18 05:08 10/17/18 04:52 Most recent lab results Calcium 7.0 mg/dL (8.4-10.2) L 10/17/18 04:52 Phosphorus 4.80 mg/dL (2.5-4.5) H 10/11/18 06:51 Magnesium 1.50 mg/dL (1.7-2.3) L 10/16/18 05:08 Medications & Allergies - Medications Allergies/Adverse Reactions: Allergies No Known Allergies Allergy (Unverified 10/11/18 05:00) Home Medications: Home Medications Medication Instructions Recorded Confirmed Last Taken Type Acetaminophen [Acetaminophen ER] 650 mg PO Q6H PRN 10/11/18 10/11/18 Unknown History Allopurinol 300 mg PO QDAY 10/11/18 10/11/18 Unknown History Amlodipine Besylate [Norvasc] 5 mg PO DAILY 10/11/18 10/11/18 Unknown History Atorvastatin [Lipitor Tab] 80 mg PO QHS 10/11/18 10/11/18 Unknown History Calcium Carbonate [Calcium Antacid] 200 mg PO TID 10/11/18 10/11/18 Unknown History Collagenase Clostridium Hist. 1 applic TP BID 10/11/18 10/11/18 Unknown History [Santyl] Collagenase Clostridium Hist. 1 applic TP QPM 10/11/18 10/11/18 Unknown History [Santyl] HYDROcodone/APAP 7.5-325 [[place] 1 each PO Q4HR PRN 10/11/18 10/11/18 Unknown History 7.5/325] Metformin HCl [Glucophage] 500 mg PO BID 10/11/18 10/11/18 Unknown History Mirtazapine [Remeron] 15 mg PO HS 10/11/18 10/11/18 Unknown History Sulfamethoxazole/Trimethoprim 1 each PO BID 10/11/18 10/11/18 Unknown History [Bactrim DS TAB] Active Medications: Generic Name Dose Route Start Last Admin Trade Name Freq PRN Reason Stop Dose Admin Acetaminophen 650 mg 10/12/18 06:45 Tylenol PO Q4H PRN Pain, Mild (1-3) Albuterol 2.5 mg 10/11/18 08:21 Proventil IH Q3HRT PRN Shortness Of Breath Albuterol/Ipratropium 1 ampul 10/11/18 14:00 10/17/18 14:51 Duoneb *Not For Prn Use* IH 1 ampul Q6HRT [place] Administration Dextrose 0 ml 10/11/18 06:14 10/12/18 01:48 D50w (25gm) Syringe IV 20 ml ONCE PRN Administration Hypoglycemia Diltiazem HCl 30 mg 10/13/18 18:00 10/17/18 13:00 Cardizem PO Not Given Q6HR [place] Norepinephrine 4 mg in 250 mls @ 7.5 mls/hr 10/15/18 17:00 10/17/18 08:10 Levophed Drip 4 Mg/Ns 250 Ml IV 0 mcg/min TITR [place] 0 mls/hr Titration Protocol 2 MCG/MIN Sodium Chloride 1,000 mls @ 999 mls/hr 10/15/18 17:00 10/15/18 22:15 Nacl 0.9% 1000 Ml IV 10/18/18 18:01 Infused BOLUS [place] Infusion Sodium Bicarbonate 150 meq/ 1,160 mls @ 75 mls/hr 10/16/18 12:30 10/17/18 06:58 Potassium Chloride 20 meq/ IV 75 mls/hr Dextrose DIRECT [place] Administration Ceftriaxone Sodium 2 gm in 100 mls @ 200 mls/hr 10/17/18 10:00 10/17/18 12:59 Rocephin/Ns 2 Gm/100 Ml IV 200 mls/hr Q24HR [place] Administration Insulin Glargine 20 units 10/13/18 22:00 10/17/18 00:20 Lantus SUB-Q Not Given QHS [facility] Insulin Human Lispro 0 unit 10/12/18 09:00 10/17/18 13:00 Humalog SUB-Q 3 unit Q6HR [place] Administration Protocol Metronidazole 500 mg 10/17/18 14:00 10/17/18 13:01 Flagyl PO 500 mg Q8HR [place] Administration Morphine Sulfate 4 mg 10/12/18 22:30 10/16/18 02:10 Morphine IV 4 mg Q4H PRN Administration Pain , Severe (7-10) Ondansetron HCl 4 mg 10/11/18 09:30 Zofran IV Q8H PRN Nausea And Vomiting Pantoprazole Sodium 40 mg 10/14/18 10:00 10/17/18 10:13 Protonix PO 40 mg QDAY [place] Administration Sodium Bicarbonate 1,300 mg 10/15/18 13:00 10/17/18 10:13 Sodium Bicarbonate PO 1,300 mg BID [place] Administration Sodium Chloride 10 ml 10/11/18 10:00 10/16/18 21:27 Sodium Chloride Flush Syringe 10 Ml IV 10 ml BID [place] Administration Sodium Chloride 10 ml 10/11/18 09:00 Sodium Chloride Flush Syringe 10 Ml IV PRN PRN LINE FLUSH Warfarin Sodium 4 mg 10/17/18 17:00 Coumadin PO DAILY@1700 [place]
[2018-10-17] MEDS: COUMADIN PO SCH (17:24)
--- NOTE | 2018-10-17 17:32 | Progress Note ---
Assessment and Plan Assessment and plan: Dinora is a 58 year old male presenting from [place] ([facility]) Pt is a very poor historian, per medical records he has history of paroxysmal atrial fibrillation, hypertension, diabetes, Colosotomy and lack of coordination with Muscle weakness anal abscess with recent debridement in Aug 2018, chronic indwelling suarez who was referred to the ER from his [facility] for evaluation of fever and low blood pressure and altered mental status. In the ER he was found to have urosepsis, acute renal failure and DKA with elevated troponin. Patient was unable to provided any information due to incoherence of his thoughts he complained of dry mouth per the ED Physician. He denies any chest pain, palpitations or shortness of breath. A report from the [place] revealed that he was noted this morning to be confused with shivering. Labs done the day prior to admission revealed a wbc of 31.4 per the staff. The patient in the ED was started on sepsis protocol and also pressers labs from [facility]ci done 10/10/17: wbc 31.4, hgb 9.1, plt 271 Source ?chronic colitis, small bilateral pleural effusions, ileus, anasarca, bilateral renal calculi. Acute Toxic metabolic encephalopathy Septic Shock Severe Sepsis Hyperosmolar NonKetotic Hyperglycemia Uncontrolled DM MALCOLM secondary to vasomotor nephropathy Severe acute blood loss anemia on anemia of chronic disease Metabolic acidosis Colostomy Unstagable scaral pressure ulcer POA Afib with RVR Troponemia- Type 2 NSTEMI Hypokalemia Severe Protein calorie malnutrition Plan Continue supportive care. Patient was placed on pressors transiently and currently off pressors Cont long acting insulin Discontinued Heparin drip in the setting of severe anemia- will start warfarin and monitor INR considering GI finding repeat chest xray TTE without any vegetation noted Renal function improvement noted Hgb improved following 3 units PRBC GI input noted. No high risk bleed risk noted. Transfuse PRBC as needed Cardiology, shingler, ID, SURGICAL, nephrology input noted Sepsis protocol ET consult NOTED Wean pressors as tolerated PICC team for Access and D/C Right femoral Line. Replace electrolytes Fall precautions DVT/GI prophy Plan discussed with patient and also with Cardiology Patient had tachycardia and was given Cardizem and discussed with the nurse to start him back on pressors if blood pressure is dropping. The plan was to transfer to [facility] and recommended to stay in the ICU. He needs close monitoring. The high probability of a clinically significant, sudden or life threatening deterioration of the [VASCULAR, INTEGUMENTARY] system(s) required my full and direct attention, intervention and personal management. The aggregate critical care time was [35] minutes. This time is in addition to time spent performing reported procedures but includes the following: [X] Data Review and interpretation [X] Patient assessment and monitoring of vital signs [X] Documentation [X] Medication orders and management History Interval history: Patient was seen and evaluated this morning, patient was alert and oriented. Patient said he is feeling weak and concerned if he is able to walk again. Hospitalist Physical - Physical exam Narrative exam: Not in cardiopulmonary distress. The patient appeared well nourished and normally developed. Vital signs as documented. Head exam is unremarkable. No scleral icterus . Neck is without jugular venous distension, thyromegaly, or carotid bruits. Lungs are clear to auscultation. Cardiac exam reveals regular rate and Rhythm. First and second heart sounds normal. No murmurs, rubs or gallops. Abdominal exam reveals normal bowel sounds, no masses, no organomegaly and no aortic enlargement. Extremities are nonedematous and both femoral and pedal pulses are normal. 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 No focal weakness. - Constitutional Vitals: Temp Pulse Resp BP Pulse Ox 98.8 F 158 H 35 H 74/46 96 10/17/18 12:00 10/17/18 17:25 10/17/18 16:30 10/17/18 17:25 10/17/18 16:30 General appearance: Present: mild distress, disheveled Results - Labs CBC & Chem 7: 10/16/18 05:08 10/17/18 04:52 Labs: Laboratory Last Values WBC 29.6 K/mm3 (4.5-11.0) H 10/16/18 05:08 RBC 2.99 M/mm3 (3.65-5.03) L 10/16/18 05:08 Hgb 8.7 gm/dl (11.8-15.2) L 10/16/18 05:08 Hct 27.7 % (35.5-45.6) L 10/16/18 05:08 MCV 93 fl (84-94) 10/16/18 05:08 MCH 29 pg (28-32) 10/16/18 05:08 MCHC 32 % (32-34) 10/16/18 05:08 RDW 17.9 % (13.2-15.2) H 10/16/18 05:08 Plt Count 263 K/mm3 (140-440) 10/16/18 05:08 Add Manual Diff Complete 10/15/18 11:21 Total Counted 100 10/15/18 11:21 Seg Neutrophils % [place] 10/15/18 11:21 Seg Neuts % (Manual) 92.0 % (40.0-70.0) H 10/15/18 11:21 Band Neutrophils % 0 % 10/15/18 11:21 Lymphocytes % (Manual) 7.0 % (13.4-35.0) L 10/15/18 11:21 Reactive Lymphs % (Man) 1.0 % 10/15/18 11:21 Monocytes % (Manual) 0 % (0.0-7.3) 10/15/18 11:21 Eosinophils % (Manual) 0 % (0.0-4.3) 10/15/18 11:21 Basophils % (Manual) 0 % (0.0-1.8) 10/15/18 11:21 Metamyelocytes % 0 % 10/15/18 11:21 Myelocytes % 0 % 10/15/18 11:21 Promyelocytes % 0 % 10/15/18 11:21 Blast Cells % 0 % 10/15/18 11:21 Nucleated RBC % Not Reportable 10/15/18 11:21 Seg Neutrophils # Man 29.3 K/mm3 (1.8-7.7) H 10/15/18 11:21 Band Neutrophils # 0.0 K/mm3 10/15/18 11:21 Lymphocytes # (Manual) 2.2 K/mm3 (1.2-5.4) 10/15/18 11:21 Abs React Lymphs (Man) 0.3 K/mm3 10/15/18 11:21 Monocytes # (Manual) 0.0 K/mm3 (0.0-0.8) 10/15/18 11:21 Eosinophils # (Manual) 0.0 K/mm3 (0.0-0.4) 10/15/18 11:21 Basophils # (Manual) 0.0 K/mm3 (0.0-0.1) 10/15/18 11:21 Metamyelocytes # 0.0 K/mm3 10/15/18 11:21 Myelocytes # 0.0 K/mm3 10/15/18 11:21 Promyelocytes # 0.0 K/mm3 10/15/18 11:21 Blast Cells # 0.0 K/mm3 10/15/18 11:21 WBC Morphology Not Reportable 10/15/18 11:21 Hypersegmented Neuts Not Reportable 10/15/18 11:21 Hyposegmented Neuts Not Reportable 10/15/18 11:21 Hypogranular Neuts Not Reportable 10/15/18 11:21 Smudge Cells Not Reportable 10/15/18 11:21 Toxic Granulation Not Reportable 10/15/18 11:21 Toxic Vacuolation Not Reportable 10/15/18 11:21 Dohle Bodies Not Reportable 10/15/18 11:21 Pelger-Huet Anomaly Not Reportable 10/15/18 11:21 Lisa Rods Not Reportable 10/15/18 11:21 Platelet Estimate Consistent w auto 10/15/18 11:21 Clumped Platelets Not Reportable 10/15/18 11:21 Plt Clumps, EDTA Not Reportable 10/15/18 11:21 Large Platelets Not Reportable 10/15/18 11:21 Giant Platelets Few 10/15/18 11:21 Platelet Satelliting Not Reportable 10/15/18 11:21 Plt Morphology Comment Not Reportable 10/15/18 11:21 RBC Morphology Not Reportable 10/15/18 11:21 Dimorphic RBCs Not Reportable 10/15/18 11:21 Polychromasia Rare 10/15/18 11:21 Hypochromasia Not Reportable 10/15/18 11:21 Poikilocytosis Not Reportable 10/15/18 11:21 Anisocytosis Not Reportable 10/15/18 11:21 Microcytosis Not Reportable 10/15/18 11:21 Macrocytosis Not Reportable 10/15/18 11:21 Spherocytes Not Reportable 10/15/18 11:21 Pappenheimer Bodies Not Reportable 10/15/18 11:21 Sickle Cells Not Reportable 10/15/18 11:21 Target Cells Few 10/15/18 11:21 Tear Drop Cells Not Reportable 10/15/18 11:21 Ovalocytes Not Reportable 10/15/18 11:21 Helmet Cells Not Reportable 10/15/18 11:21 Brown-Mills Bodies Not Reportable 10/15/18 11:21 [place] Rings Not Reportable 10/15/18 11:21 [place] Cells Few 10/15/18 11:21 Bite Cells Not Reportable 10/15/18 11:21 Crenated Cell Not Reportable 10/15/18 11:21 Elliptocytes Not Reportable 10/15/18 11:21 Acanthocytes (Spur) Not Reportable 10/15/18 11:21 Rouleaux Not Reportable 10/15/18 11:21 Hemoglobin C Crystals Not Reportable 10/15/18 11:21 Schistocytes Not Reportable 10/15/18 11:21 Malaria parasites Not Reportable 10/15/18 11:21 [place] Bodies Not Reportable 10/15/18 11:21 Hem Pathologist Commnt No 10/15/18 11:21 PT 20.9 Sec. (12.2-14.9) H 10/17/18 04:52 INR 1.76 (0.87-1.13) H 10/17/18 04:52 POC ABG pH 7.380 (7.35-7.45) 10/11/18 17:53 POC ABG pCO2 28.2 (35-45) L 10/11/18 17:53 POC ABG pO2 60 (80-105) L 10/11/18 17:53 POC ABG HCO3 16.7 10/11/18 17:53 POC ABG Total CO2 18 10/11/18 17:53 POC ABG O2 Sat 91 10/11/18 17:53 POC ABG Base Excess -8 10/11/18 17:53 VBG pH 7.226 (7.320-7.420) L 10/11/18 05:21 FiO2 2 % 10/11/18 17:53 Sodium 140 mmol/L (137-145) 10/17/18 04:52 Potassium 3.8 mmol/L (3.6-5.0) 10/17/18 04:52 Chloride 113.4 mmol/L (98-107) H 10/17/18 04:52 Carbon Dioxide 14 mmol/L (22-30) L 10/17/18 04:52 Anion Gap 16 mmol/L 10/17/18 04:52 BUN 14 mg/dL (9-20) 10/17/18 04:52 Creatinine 1.3 mg/dL (0.8-1.5) 10/17/18 04:52 Estimated GFR > 60 ml/min 10/17/18 04:52 BUN/Creatinine Ratio 11 % 10/17/18 04:52 Glucose 118 mg/dL (75-100) H 10/17/18 04:52 POC Glucose 165 (70-105) H 10/17/18 12:15 Lactic Acid 1.50 mmol/L (0.7-2.0) 10/12/18 04:20 Calcium 7.0 mg/dL (8.4-10.2) L 10/17/18 04:52 Phosphorus 4.80 mg/dL (2.5-4.5) H 10/11/18 06:51 Magnesium 1.50 mg/dL (1.7-2.3) L 10/16/18 05:08 Total Bilirubin 0.50 mg/dL (0.1-1.2) 10/17/18 04:52 AST 36 units/L (5-40) 10/17/18 04:52 ALT 10 units/L (7-56) 10/17/18 04:52 Alkaline Phosphatase 219 units/L (35-129) H 10/17/18 04:52 Total Creatine Kinase 933 units/L (55-170) H 10/11/18 17:58 CK-MB (CK-2) 2.8 ng/mL (0.0-4.0) 10/11/18 17:58 CK-MB (CK-2) Rel Index 0.3 (0-4) 10/11/18 17:58 Troponin T 0.116 ng/mL (0.00-0.029) H* 10/11/18 05:21 Total Protein 5.5 g/dL (6.3-8.2) L 10/17/18 04:52 Albumin 1.3 g/dL (3.9-5) L 10/17/18 04:52 Albumin/Globulin Ratio 0.3 % 10/17/18 04:52 Triglycerides 120 mg/dL (2-149) 10/11/18 05:21 Cholesterol 26 mg/dL (50-199) L 10/11/18 05:21 LDL Cholesterol Direct 4 mg/dL (50-130) L 10/11/18 05:21 HDL Cholesterol 7 mg/dL (40-59) L 10/11/18 05:21 Cholesterol/HDL Ratio 3.71 % 10/11/18 05:21 Urine Color Christine (Yellow) 10/11/18 Unknown Urine Turbidity Turbid (Clear) 10/11/18 Unknown Urine pH 5.0 (5.0-7.0) 10/11/18 Unknown Ur Specific [place] 1.019 (1.003-1.030) 10/11/18 Unknown Urine Protein 100 mg/dl mg/dL (Negative) 10/11/18 Unknown Urine Glucose (UA) Neg mg/dL (Negative) 10/11/18 Unknown Urine Ketones Neg mg/dL (Negative) 10/11/18 Unknown Urine Blood Sm (Negative) 10/11/18 Unknown Urine Nitrite Neg (Negative) 10/11/18 Unknown Urine Bilirubin Neg (Negative) 10/11/18 Unknown Urine Urobilinogen < 2.0 mg/dL (<2.0) 10/11/18 Unknown Ur Leukocyte Esterase Lg (Negative) 10/11/18 Unknown Urine WBC (Auto) > 182.0 /HPF (0.0-6.0) H 10/11/18 Unknown Urine RBC (Auto) 57.0 /HPF (0.0-6.0) 10/11/18 Unknown U Epithel Cells (Auto) 1.0 /HPF (0-13.0) 10/11/18 06:08 Urine Bacteria (Auto) 3+ /HPF (Negative) 10/11/18 Unknown Urine WBC Clumps 3+ /HPF 10/11/18 Unknown Urine Mucus 2+ /HPF 10/11/18 Unknown Random Vancomycin 5.7 ug/mL (0-40.0) 10/13/18 05:30 Blood Type A POSITIVE 10/11/18 09:05 Antibody Screen Negative 10/11/18 09:05 Crossmatch See Detail 10/11/18 09:05 Nutrition/Malnutrition Assess - Dietary Evaluation Nutrition/Malnutrition Findings: Nutrition Notes Start: 10/12/18 12: 55 Freq: Status: Active Protocol: Document 10/17/18 15:39 AMY (Rec: 10/17/18 15:44 AMY [email or web address] [email or web address]) Nutrition Notes Initial or Follow up Brief Note Current Diet Consistent CHO Subjective/Other Information Pt says first time taking coumadin. He is amenable to ONS since he now says he is not eating well. He is a little groggy at time of visit (11:10). Nutrition Intervention Add Supplement/Snack (indicate name/kcal Glucerna BID /protein ) Provides kCal: 440 Provides Protein (gm) 20 Teaching Recipient Patient Learning Readiness Fair Teaching Methods Discussion Handout Response to Teaching Verbalize understanding Education Handouts Provided Vitamin K and Medications Barriers to Learning Physical RD phone number provided Yes Patient aware of follow up options Yes Actions To Overcome Barriers Other Follow-Up By: 10/19/18 Additional Comments F/U: intakes (meals/ONS)
[2018-10-17] MEDS: LEVOPHED DRIP 4 MG/NS 250 ML 4 MG/250 ML BAG IV SCH (20:32)
[2018-10-18] MEDS: SODIUM BICARBONATE 150 MEQ, KCL 20 MEQ in D5W 1,000 ML IV SCH ×2 (00:25→17:21)
[2018-10-18] MEDS: SODIUM CHLORIDE FLUSH SYRINGE 10 ML IV SCH ×2 (00:25→13:17)
[2018-10-18] MEDS: CARDIZEM PO SCH ×4 (02:27→17:24)
[2018-10-18] MEDS: DUONEB *Not for PRN Use IH SCH ×4 (03:04→21:04)
[2018-10-18] MEDS: HumaLOG SUB-Q SCH ×4 (03:50→17:22)
[2018-10-18] MEDS: LEVOPHED DRIP 4 MG/NS 250 ML 4 MG/250 ML BAG IV SCH (03:51)
[2018-10-18] MEDS: FLAGYL PO SCH ×3 (05:13→21:45)
[2018-10-18 06:21] LABS: Hemoglobin 8.6 gm/dl (11.8-15.2); Mean Corpuscular HGB Conc 33 % (32-34); Mean Corpuscular Volume 87 fl (84-94); Platelet Count 396 K/mm3 (140-440); Red Blood Count 2.97 M/mm3 (3.65-5.03); Red Cell Distribution Width 16.8 % (13.2-15.2)
[2018-10-18 06:34] LABS: INR 2.22 (0.87-1.13)
[2018-10-18 07:56] LABS: Blood Urea Nitrogen TNR mg/dL (9-20)
[2018-10-18 07:57] LABS: BUN/Creatinine Ratio TNR; Calcium TNR mg/dL (8.4-10.2); Hemolysis Index TNR
[2018-10-18 08:17] LABS: Myelocytes # (Manual) 0.6 K/mm3; Total Cells Counted 100
[2018-10-18 08:18] LABS: Anisocytosis 1+; Macrocytosis Few; Ovalocytes Few; Platelet Estimate Consistent w Auto; Poikilocytosis 1+
[2018-10-18 08:40] LABS: BUN/Creatinine Ratio 9; Blood Urea Nitrogen 11 mg/dL (9-20); Calcium 6.8 mg/dL (8.4-10.2); Hemolysis Index 10
[2018-10-18] MEDS ORDERED: MAGNESIUM SULFATE 2GM/50ML 2 GM/50 ML BAG IV ONE (09:19)
[2018-10-18] MEDS ORDERED: POTASSIUM CHLORIDE FEEDTUBE SCH ×2 (10:00)
[2018-10-18] MEDS ORDERED: MAGNESIUM SULFATE 4GM/100ML 4 GM/100 ML BAG IV ONE (10:00)
[2018-10-18] MEDS: ROCEPHIN/NS 2 GM/100 ML 2 GM/100 ML BAG IV SCH (10:47)
[2018-10-18] MEDS: SODIUM BICARBONATE PO SCH ×2 (10:48→21:45)
[2018-10-18] MEDS: PROTONIX PO SCH (10:48)
[2018-10-18] MEDS: K-DUR PO SCH ×3 (10:48→17:21)
--- NOTE | 2018-10-18 12:39 | Progress Note ---
Assessment and Plan Impression: * Acute kidney secondary to ATN * Sepsis - ?urinary source --Blood cx - NGTD --Urine cx - greater than 2 organisms * Metabolic acidosis secondary to lactic acidosis * UTI * Hypokalemia * hypomagnesemia * Anemia Plan: * Renal function improved - SCr trending down * replete mag prn * restart k with Bicarb gtt, increase bicarb administration * added po sodium bicarb * co2 is better today * Replete K prn - note orders * Abx per primary team * Transfusion per primary team - pRBC transfusion in progress * Replete lytes prn * Dose medications for renal function * Avoid potential nephrotoxins Subjective Date of service: 10/18/18 Principal diagnosis: Acute Toxic metabolic encephalopathy; Septic Shock; Severe Sepsis; DKA Interval history: resting well in bed today Objective - Exam Narrative Exam: General appearance: chronically ill EENT: other (poor dentition) Respiratory: Present: Clear to Ascultation Cardiology: regular, tachycardia Gastrointestinal: other (ostomy) Integumentary: no rash Psychiatric: cooperative - Vital Signs Vital signs: Vital Signs - 12hr 10/18/18 10/18/18 10/18/18 00:40 00:50 01:00 Temperature Pulse Rate 103 H 101 H 100 H Pulse Rate [ Anterior Bilateral Throughout] Respiratory 32 H 42 H 28 H Rate Respiratory Rate [Anterior Bilateral Throughout] Blood Pressure 112/70 112/70 115/68 O2 Sat by Pulse 96 95 97 Oximetry 10/18/18 10/18/18 10/18/18 01:10 01:20 01:30 Temperature Pulse Rate 94 H 91 H 103 H Pulse Rate [ Anterior Bilateral Throughout] Respiratory 35 H 33 H 33 H Rate Respiratory Rate [Anterior Bilateral Throughout] Blood Pressure 115/68 115/68 109/71 O2 Sat by Pulse 96 96 96 Oximetry 10/18/18 10/18/18 10/18/18 01:40 01:50 02:00 Temperature Pulse Rate 101 H 109 H 98 H Pulse Rate [ Anterior Bilateral Throughout] Respiratory 28 H 25 H 31 H Rate Respiratory Rate [Anterior Bilateral Throughout] Blood Pressure 109/71 109/71 109/71 O2 Sat by Pulse 95 99 74 L Oximetry 10/18/18 10/18/18 10/18/18 02:10 02:20 02:27 Temperature Pulse Rate 100 H 157 H 155 H Pulse Rate [ Anterior Bilateral Throughout] Respiratory 30 H 32 H Rate Respiratory Rate [Anterior Bilateral Throughout] Blood Pressure 122/66 122/66 122/66 O2 Sat by Pulse 88 100 Oximetry 10/18/18 10/18/18 10/18/18 02:30 02:40 02:50 Temperature Pulse Rate 155 H 152 H 154 H Pulse Rate [ Anterior Bilateral Throughout] Respiratory 37 H 34 H 38 H Rate Respiratory Rate [Anterior Bilateral Throughout] Blood Pressure 122/66 122/66 122/66 O2 Sat by Pulse 96 99 96 Oximetry 10/18/18 10/18/18 10/18/18 03:00 03:10 03:20 Temperature Pulse Rate 155 H 155 H 152 H Pulse Rate [ Anterior Bilateral Throughout] Respiratory 38 H 38 H 35 H Rate Respiratory Rate [Anterior Bilateral Throughout] Blood Pressure 122/66 77/55 77/55 O2 Sat by Pulse Oximetry 10/18/18 10/18/18 10/18/18 03:30 03:40 03:50 Temperature Pulse Rate 155 H 161 H 103 H Pulse Rate [ Anterior Bilateral Throughout] Respiratory 40 H 34 H 36 H Rate Respiratory Rate [Anterior Bilateral Throughout] Blood Pressure 77/55 72/45 105/64 O2 Sat by Pulse 93 Oximetry 10/18/18 10/18/18 10/18/18 04:00 04:10 04:20 Temperature Pulse Rate 102 H 102 H 100 H Pulse Rate [ Anterior Bilateral Throughout] Respiratory 36 H 38 H 36 H Rate Respiratory Rate [Anterior Bilateral Throughout] Blood Pressure 102/65 102/65 102/65 O2 Sat by Pulse 97 97 Oximetry 10/18/18 10/18/18 10/18/18 04:30 04:40 04:50 Temperature Pulse Rate 98 H 98 H 99 H Pulse Rate [ Anterior Bilateral Throughout] Respiratory 34 H 30 H 34 H Rate Respiratory Rate [Anterior Bilateral Throughout] Blood Pressure 103/67 103/67 103/67 O2 Sat by Pulse 97 96 97 Oximetry 10/18/18 10/18/18 10/18/18 05:00 05:10 05:13 Temperature Pulse Rate 97 H 96 H 98 H Pulse Rate [ Anterior Bilateral Throughout] Respiratory 34 H 37 H Rate Respiratory Rate [Anterior Bilateral Throughout] Blood Pressure 103/67 108/70 108/70 O2 Sat by Pulse 98 97 Oximetry 10/18/18 10/18/18 10/18/18 05:15 05:20 05:29 Temperature 98.5 F Pulse Rate 96 H 94 H Pulse Rate [ Anterior Bilateral Throughout] Respiratory 36 H Rate Respiratory Rate [Anterior Bilateral Throughout] Blood Pressure 108/70 O2 Sat by Pulse 97 Oximetry 10/18/18 10/18/18 10/18/18 05:30 05:40 05:50 Temperature Pulse Rate 93 H 96 H 94 H Pulse Rate [ Anterior Bilateral Throughout] Respiratory 33 H 28 H 30 H Rate Respiratory Rate [Anterior Bilateral Throughout] Blood Pressure 118/70 118/70 118/70 O2 Sat by Pulse 91 96 Oximetry 10/18/18 10/18/18 10/18/18 06:00 06:10 06:20 Temperature Pulse Rate 97 H 94 H 91 H Pulse Rate [ Anterior Bilateral Throughout] Respiratory 28 H 30 H 31 H Rate Respiratory Rate [Anterior Bilateral Throughout] Blood Pressure 118/70 115/72 115/72 O2 Sat by Pulse 97 97 98 Oximetry 10/18/18 10/18/18 10/18/18 06:30 06:40 06:50 Temperature Pulse Rate 94 H 99 H 93 H Pulse Rate [ Anterior Bilateral Throughout] Respiratory 28 H 41 H 30 H Rate Respiratory Rate [Anterior Bilateral Throughout] Blood Pressure 104/64 118/70 118/70 O2 Sat by Pulse 97 99 Oximetry 10/18/18 10/18/18 10/18/18 07:00 07:10 07:20 Temperature Pulse Rate 93 H 94 H 91 H Pulse Rate [ Anterior Bilateral Throughout] Respiratory 32 H 27 H 30 H Rate Respiratory Rate [Anterior Bilateral Throughout] Blood Pressure 113/74 104/64 104/64 O2 Sat by Pulse 99 98 Oximetry 10/18/18 10/18/18 10/18/18 07:30 07:40 07:50 Temperature Pulse Rate 92 H 87 102 H Pulse Rate [ Anterior Bilateral Throughout] Respiratory 33 H 32 H 21 Rate Respiratory Rate [Anterior Bilateral Throughout] Blood Pressure 103/68 113/74 113/74 O2 Sat by Pulse 98 97 98 Oximetry 10/18/18 10/18/18 10/18/18 08:00 08:10 08:19 Temperature Pulse Rate 84 85 Pulse Rate [ Anterior Bilateral Throughout] Respiratory 29 H 30 H Rate Respiratory Rate [Anterior Bilateral Throughout] Blood Pressure 113/71 103/68 O2 Sat by Pulse 98 98 98 Oximetry 10/18/18 10/18/18 10/18/18 08:20 08:28 08:30 Temperature Pulse Rate 86 88 Pulse Rate [ 85 88 Anterior Bilateral Throughout] Respiratory 31 H 28 H Rate Respiratory 20 20 Rate [Anterior Bilateral Throughout] Blood Pressure 108/71 108/71 O2 Sat by Pulse 99 99 Oximetry 10/18/18 10/18/18 10/18/18 08:40 08:50 08:55 Temperature 98.0 F Pulse Rate 90 87 Pulse Rate [ Anterior Bilateral Throughout] Respiratory 34 H 25 H Rate Respiratory Rate [Anterior Bilateral Throughout] Blood Pressure 87/60 87/60 O2 Sat by Pulse 100 100 Oximetry 10/18/18 10/18/18 10/18/18 09:00 09:10 09:20 Temperature Pulse Rate 89 89 93 H Pulse Rate [ Anterior Bilateral Throughout] Respiratory 34 H 35 H 35 H Rate Respiratory Rate [Anterior Bilateral Throughout] Blood Pressure 87/60 96/69 96/69 O2 Sat by Pulse 100 94 100 Oximetry - Lab 10/18/18 04:39 10/18/18 08:11 Most recent lab results Calcium 6.8 mg/dL (8.4-10.2) L 10/18/18 08:11 Phosphorus 4.80 mg/dL (2.5-4.5) H 10/11/18 06:51 Magnesium 1.20 mg/dL (1.7-2.3) L 10/18/18 04:39 Medications & Allergies - Medications Allergies/Adverse Reactions: Allergies No Known Allergies Allergy (Unverified 10/11/18 05:00) Home Medications: Home Medications Medication Instructions Recorded Confirmed Last Taken Type Acetaminophen [Acetaminophen ER] 650 mg PO Q6H PRN 10/11/18 10/11/18 Unknown History Allopurinol 300 mg PO QDAY 10/11/18 10/11/18 Unknown History Amlodipine Besylate [Norvasc] 5 mg PO DAILY 10/11/18 10/11/18 Unknown History Atorvastatin [Lipitor Tab] 80 mg PO QHS 10/11/18 10/11/18 Unknown History Calcium Carbonate [Calcium Antacid] 200 mg PO TID 10/11/18 10/11/18 Unknown History Collagenase Clostridium Hist. 1 applic TP BID 10/11/18 10/11/18 Unknown History [Santyl] Collagenase Clostridium Hist. 1 applic TP QPM 10/11/18 10/11/18 Unknown History [Santyl] HYDROcodone/APAP 7.5-325 [[place] 1 each PO Q4HR PRN 10/11/18 10/11/18 Unknown History 7.5/325] Metformin HCl [Glucophage] 500 mg PO BID 10/11/18 10/11/18 Unknown History Mirtazapine [Remeron] 15 mg PO HS 10/11/18 10/11/18 Unknown History Sulfamethoxazole/Trimethoprim 1 each PO BID 10/11/18 10/11/18 Unknown History [Bactrim DS TAB] Active Medications: Generic Name Dose Route Start Last Admin Trade Name Freq PRN Reason Stop Dose Admin Acetaminophen 650 mg 10/12/18 06:45 Tylenol PO Q4H PRN Pain, Mild (1-3) Albuterol 2.5 mg 10/11/18 08:21 Proventil IH Q3HRT PRN Shortness Of Breath Albuterol/Ipratropium 1 ampul 10/11/18 14:00 10/18/18 08:20 Duoneb *Not For Prn Use* IH 1 ampul Q6HRT FRANCISCO Administration Dextrose 0 ml 10/11/18 06:14 10/12/18 01:48 D50w (25gm) Syringe IV 20 ml ONCE PRN Administration Hypoglycemia Diltiazem HCl 30 mg 10/13/18 18:00 10/18/18 05:13 Cardizem PO 30 mg Q6HR FRANCISCO Administration Norepinephrine 4 mg in 250 mls @ 7.5 mls/hr 10/15/18 17:00 10/18/18 07:40 Levophed Drip 4 Mg/Ns 250 Ml IV 8 mcg/min TITR FRANCISCO 30 mls/hr Titration Protocol 2 MCG/MIN Sodium Bicarbonate 150 meq/ 1,160 mls @ 75 mls/hr 10/16/18 12:30 10/18/18 00:25 Potassium Chloride 20 meq/ IV 75 mls/hr Dextrose DIRECT FRANCISCO Administration Ceftriaxone Sodium 2 gm in 100 mls @ 200 mls/hr 10/17/18 10:00 10/18/18 10:47 Rocephin/Ns 2 Gm/100 Ml IV 200 mls/hr Q24HR FRANCISCO Administration Magnesium Sulfate 4 gm in 100 mls @ 25 mls/hr 10/18/18 10:00 Magnesium Sulfate 4gm/100ml IV 10/18/18 13:59 ONCE ONE Insulin Glargine 20 units 10/13/18 22:00 10/17/18 23:00 Lantus SUB-Q 20 units QHS FRANCISCO Administration Insulin Human Lispro 0 unit 10/12/18 09:00 10/18/18 05:20 Humalog SUB-Q 3 unit Q6HR FRANCISCO Administration Protocol Metronidazole 500 mg 10/17/18 14:00 10/18/18 05:13 Flagyl PO 500 mg Q8HR FRANCISCO Administration Morphine Sulfate 4 mg 10/12/18 22:30 10/16/18 02:10 Morphine IV 4 mg Q4H PRN Administration Pain , Severe (7-10) Ondansetron HCl 4 mg 10/11/18 09:30 Zofran IV Q8H PRN Nausea And Vomiting Pantoprazole Sodium 40 mg 10/14/18 10:00 10/18/18 10:48 Protonix PO 40 mg QDAY FRANCISCO Administration Potassium Chloride 40 meq 10/18/18 10:00 10/18/18 10:48 K-Dur PO 10/18/18 14:01 40 meq Q2H FRANCISCO Administration Sodium Bicarbonate 1,300 mg 10/15/18 13:00 10/18/18 10:48 Sodium Bicarbonate PO 1,300 mg BID FRANCISCO Administration Sodium Chloride 10 ml 10/11/18 10:00 10/18/18 00:25 Sodium Chloride Flush Syringe 10 Ml IV 10 ml BID FRANCISCO Administration Sodium Chloride 10 ml 10/11/18 09:00 Sodium Chloride Flush Syringe 10 Ml IV PRN PRN LINE FLUSH Warfarin Sodium 4 mg 10/17/18 17:00 10/17/18 17:24 Coumadin PO 4 mg DAILY@1700 FRANCISCO Administration
--- NOTE | 2018-10-18 12:54 | Progress Note ---
Assessment and Plan Pt had bout of SVT overnight which responded to adenosine. Initiate PO amio for more adequate HR control. Cont PO cardizem. The patient has been seen in conjunction with Dr. Hansen who agrees with the assessment and plan of care. - Patient Problems (1) Sepsis Current Visit: Yes Status: Acute (2) Hypotension Current Visit: Yes Status: Acute (3) Paroxysmal atrial fibrillation with RVR Current Visit: Yes Status: Chronic (4) UTI (urinary tract infection) Current Visit: Yes Status: Acute (5) Elevated troponin Current Visit: Yes Status: Acute (6) Acute renal failure Current Visit: Yes Status: Acute (7) Hyperglycemic hyperosmolar nonketotic coma Current Visit: Yes Status: Acute (8) Anemia Current Visit: Yes Status: Acute (9) Hypomagnesemia Current Visit: Yes Status: Acute (10) Hypokalemia Current Visit: Yes Status: Acute (11) Sacral decubitus ulcer Current Visit: Yes Status: Chronic (12) SVT (supraventricular tachycardia) Current Visit: Yes Status: Acute Subjective Date of service: 10/18/18 Principal diagnosis: Acute Toxic metabolic encephalopathy; Septic Shock; Severe Sepsis; DKA Interval history: pt resting in bed, no apparent distress, no current cardiac complaints. in SR on telemetry. had a bout of SVT overnight which responded to adenosine. currently on levophed gtt. Objective Last Vital Signs Temp 97.9 F 10/18/18 12:51 Pulse 93 H 10/18/18 09:20 Resp 35 H 10/18/18 09:20 BP 96/69 10/18/18 09:20 Pulse Ox 100 10/18/18 09:20 - Physical Examination General: No Apparent Distress HEENT: Positive: Normocephaly, Mucus Membranes Moist Neck: Positive: neck supple, trachea midline Cardiac: Positive: Reg Rate and Rhythm, S1/S2 Lungs: Positive: Decreased Breath Sounds Neuro: Positive: Other (disoriented) Abdomen: Positive: Soft Extremities: Absent: edema - Labs and Meds Coagulation 10/18/18 Range/Units 04:39 PT 25.0 H (12.2-14.9) Sec. INR 2.22 H (0.87-1.13) CBC 10/18/18 Range/Units 04:39 WBC 28.7 H (4.5-11.0) K/mm3 RBC 2.97 L (3.65-5.03) M/mm3 Hgb 8.6 L (11.8-15.2) gm/dl Hct 26.0 L (35.5-45.6) % Plt Count 396 (140-440) K/mm3 Comprehensive Metabolic Panel 10/18/18 10/18/18 Range/Units 04:39 08:11 Sodium TNR 141 Potassium TNR 3.0 L D Chloride TNR 110.2 H Carbon Dioxide TNR 20 L BUN TNR 11 Creatinine TNR 1.2 Glucose TNR 185 H Calcium TNR 6.8 L - Imaging and Cardiology EKG: image reviewed Echo: report reviewed (EF 60-65%, mild TR. ) - EKG Sinus rhythms and dysrhythmias: sinus tachycardia - Allied health notes Allied health notes reviewed: nursing
--- NOTE | 2018-10-18 13:04 | Progress Note ---
Assessment and Plan Acute Toxic metabolic encephalopathy Septic Shock Severe Sepsis DKA MALCOLM secondary to vasomotor nephropathy Metabolic acidosis Colostomy Unstagable scaral pressure ulcer POA Afib with RVR Troponemia- Type 2 NSTEMI Anemia of chronic disease Hypokalemia Severe Protein calorie malnutrition - continue to titrate levophed to keep MAP > 65 mmHg - continue volume resuscitation - Heparin drip held re: Anemia not appropriately responsive to transfusions - Surgical evaluation ongoing re: sacral decubitus - rate control per cardiology team - continue Sepsis protocol - continue cefepime (BC's grew B-hemolytic strep) - de-escalate per ID recommendations - continue GI & VTE prophylaxis - continue glycemic control with lantus insulin and SSI for target BG 140 to 180 mg/dL - TTE without vegetations - prn CBC re: Anemia (s/p 3 units PRBC's this admission) - PT/OT evaluation ongoing - follow Renal ultrasound - continue fall precautions - Continue GI & VTE prophylaxis - continue mobility protocol for pressure ulcer prophylaxis - continue other care per attending / other consultants ...re-evaluate in am & prn FULL CODE The high probability of a clinically significant, sudden or life threatening deterioration of the [CARDIAC, RENAL, ] system(s) required my full and direct attention, intervention and personal management. The aggregate critical care time was [34] minutes. This time is in addition to time spent performing reported procedures but includes the following: [X] Data Review and interpretation [X] Patient assessment and monitoring of vital signs [X] Documentation [X] Medication orders and management Subjective Date of service: 10/18/18 Principal diagnosis: Acute Toxic metabolic encephalopathy; Septic Shock; Severe Sepsis; DKA Interval history: Patient is seen today for: Acute Toxic metabolic encephalopathy; Septic Shock; Severe Sepsis; DKA Seen and examined at bedside; 24hour events reviewed; nursing and respiratory care staff consulted; no adverse overnight events reported to me; resting peacefully in bed; still with intermittent levophed needs; still with intermittent RVR; no gross bleeding; denies acute chest pains or palpitations Objective Vital Signs - 12hr 10/18/18 10/18/18 10/18/18 01:10 01:20 01:30 Temperature Pulse Rate 94 H 91 H 103 H Pulse Rate [ Anterior Bilateral Throughout] Respiratory 35 H 33 H 33 H Rate Respiratory Rate [Anterior Bilateral Throughout] Blood Pressure 115/68 115/68 109/71 O2 Sat by Pulse 96 96 96 Oximetry 10/18/18 10/18/18 10/18/18 01:40 01:50 02:00 Temperature Pulse Rate 101 H 109 H 98 H Pulse Rate [ Anterior Bilateral Throughout] Respiratory 28 H 25 H 31 H Rate Respiratory Rate [Anterior Bilateral Throughout] Blood Pressure 109/71 109/71 109/71 O2 Sat by Pulse 95 99 74 L Oximetry 10/18/18 10/18/18 10/18/18 02:10 02:20 02:27 Temperature Pulse Rate 100 H 157 H 155 H Pulse Rate [ Anterior Bilateral Throughout] Respiratory 30 H 32 H Rate Respiratory Rate [Anterior Bilateral Throughout] Blood Pressure 122/66 122/66 122/66 O2 Sat by Pulse 88 100 Oximetry 10/18/18 10/18/18 10/18/18 02:30 02:40 02:50 Temperature Pulse Rate 155 H 152 H 154 H Pulse Rate [ Anterior Bilateral Throughout] Respiratory 37 H 34 H 38 H Rate Respiratory Rate [Anterior Bilateral Throughout] Blood Pressure 122/66 122/66 122/66 O2 Sat by Pulse 96 99 96 Oximetry 10/18/18 10/18/18 10/18/18 03:00 03:10 03:20 Temperature Pulse Rate 155 H 155 H 152 H Pulse Rate [ Anterior Bilateral Throughout] Respiratory 38 H 38 H 35 H Rate Respiratory Rate [Anterior Bilateral Throughout] Blood Pressure 122/66 77/55 77/55 O2 Sat by Pulse Oximetry 10/18/18 10/18/18 10/18/18 03:30 03:40 03:50 Temperature Pulse Rate 155 H 161 H 103 H Pulse Rate [ Anterior Bilateral Throughout] Respiratory 40 H 34 H 36 H Rate Respiratory Rate [Anterior Bilateral Throughout] Blood Pressure 77/55 72/45 105/64 O2 Sat by Pulse 93 Oximetry 10/18/18 10/18/18 10/18/18 04:00 04:10 04:20 Temperature Pulse Rate 102 H 102 H 100 H Pulse Rate [ Anterior Bilateral Throughout] Respiratory 36 H 38 H 36 H Rate Respiratory Rate [Anterior Bilateral Throughout] Blood Pressure 102/65 102/65 102/65 O2 Sat by Pulse 97 97 Oximetry 10/18/18 10/18/18 10/18/18 04:30 04:40 04:50 Temperature Pulse Rate 98 H 98 H 99 H Pulse Rate [ Anterior Bilateral Throughout] Respiratory 34 H 30 H 34 H Rate Respiratory Rate [Anterior Bilateral Throughout] Blood Pressure 103/67 103/67 103/67 O2 Sat by Pulse 97 96 97 Oximetry 10/18/18 10/18/18 10/18/18 05:00 05:10 05:13 Temperature Pulse Rate 97 H 96 H 98 H Pulse Rate [ Anterior Bilateral Throughout] Respiratory 34 H 37 H Rate Respiratory Rate [Anterior Bilateral Throughout] Blood Pressure 103/67 108/70 108/70 O2 Sat by Pulse 98 97 Oximetry 10/18/18 10/18/18 10/18/18 05:15 05:20 05:29 Temperature 98.5 F Pulse Rate 96 H 94 H Pulse Rate [ Anterior Bilateral Throughout] Respiratory 36 H Rate Respiratory Rate [Anterior Bilateral Throughout] Blood Pressure 108/70 O2 Sat by Pulse 97 Oximetry 10/18/18 10/18/18 10/18/18 05:30 05:40 05:50 Temperature Pulse Rate 93 H 96 H 94 H Pulse Rate [ Anterior Bilateral Throughout] Respiratory 33 H 28 H 30 H Rate Respiratory Rate [Anterior Bilateral Throughout] Blood Pressure 118/70 118/70 118/70 O2 Sat by Pulse 91 96 Oximetry 10/18/18 10/18/18 10/18/18 06:00 06:10 06:20 Temperature Pulse Rate 97 H 94 H 91 H Pulse Rate [ Anterior Bilateral Throughout] Respiratory 28 H 30 H 31 H Rate Respiratory Rate [Anterior Bilateral Throughout] Blood Pressure 118/70 115/72 115/72 O2 Sat by Pulse 97 97 98 Oximetry 10/18/18 10/18/18 10/18/18 06:30 06:40 06:50 Temperature Pulse Rate 94 H 99 H 93 H Pulse Rate [ Anterior Bilateral Throughout] Respiratory 28 H 41 H 30 H Rate Respiratory Rate [Anterior Bilateral Throughout] Blood Pressure 104/64 118/70 118/70 O2 Sat by Pulse 97 99 Oximetry 10/18/18 10/18/18 10/18/18 07:00 07:10 07:20 Temperature Pulse Rate 93 H 94 H 91 H Pulse Rate [ Anterior Bilateral Throughout] Respiratory 32 H 27 H 30 H Rate Respiratory Rate [Anterior Bilateral Throughout] Blood Pressure 113/74 104/64 104/64 O2 Sat by Pulse 99 98 Oximetry 10/18/18 10/18/18 10/18/18 07:30 07:40 07:50 Temperature Pulse Rate 92 H 87 102 H Pulse Rate [ Anterior Bilateral Throughout] Respiratory 33 H 32 H 21 Rate Respiratory Rate [Anterior Bilateral Throughout] Blood Pressure 103/68 113/74 113/74 O2 Sat by Pulse 98 97 98 Oximetry 10/18/18 10/18/18 10/18/18 08:00 08:10 08:19 Temperature Pulse Rate 84 85 Pulse Rate [ Anterior Bilateral Throughout] Respiratory 29 H 30 H Rate Respiratory Rate [Anterior Bilateral Throughout] Blood Pressure 113/71 103/68 O2 Sat by Pulse 98 98 98 Oximetry 10/18/18 10/18/18 10/18/18 08:20 08:28 08:30 Temperature Pulse Rate 86 88 Pulse Rate [ 85 88 Anterior Bilateral Throughout] Respiratory 31 H 28 H Rate Respiratory 20 20 Rate [Anterior Bilateral Throughout] Blood Pressure 108/71 108/71 O2 Sat by Pulse 99 99 Oximetry 10/18/18 10/18/18 10/18/18 08:40 08:50 08:55 Temperature 98.0 F Pulse Rate 90 87 Pulse Rate [ Anterior Bilateral Throughout] Respiratory 34 H 25 H Rate Respiratory Rate [Anterior Bilateral Throughout] Blood Pressure 87/60 87/60 O2 Sat by Pulse 100 100 Oximetry 10/18/18 10/18/18 10/18/18 09:00 09:10 09:20 Temperature Pulse Rate 89 89 93 H Pulse Rate [ Anterior Bilateral Throughout] Respiratory 34 H 35 H 35 H Rate Respiratory Rate [Anterior Bilateral Throughout] Blood Pressure 87/60 96/69 96/69 O2 Sat by Pulse 100 94 100 Oximetry 10/18/18 12:51 Temperature 97.9 F Pulse Rate Pulse Rate [ Anterior Bilateral Throughout] Respiratory Rate Respiratory Rate [Anterior Bilateral Throughout] Blood Pressure O2 Sat by Pulse Oximetry Constitutional: alert, appears uncomfortable, other (elderly looking AAM, normocephalic and atraumatic with mildly increased resp effort at rest) Eyes: non-icteric ENT: oropharynx dry, other (Mallampati 2) Neck: supple, no lymphadenopathy, no JVD Effort: mildly labored Ascultation: Bilateral: clear Percussion: Bilateral: not dull Cardiovascular: irregular rhythm, other (No R/M) Gastrointestinal: hypoactive bowel sounds, soft, non-tender, non-distended Integumentary: rash, decubitus ulcer (sacral) Extremities: no cyanosis, no edema, pulses normal, no ischemia or petechiae Neurologic: normal mental status, non-focal exam (grossly), pupils equal and round, other (weak lower extremities) Psychiatric: mood appropriate, affect normal CBC and BMP: 10/21/18 05:11 10/21/18 05:11 ABG, PT/INR, D-dimer: ABG POC ABG pH 7.380 (7.35-7.45) 10/11/18 17:53 POC ABG pCO2 28.2 (35-45) L 10/11/18 17:53 POC ABG pO2 60 (80-105) L 10/11/18 17:53 POC ABG HCO3 16.7 10/11/18 17:53 POC ABG Total CO2 18 10/11/18 17:53 POC ABG O2 Sat 91 10/11/18 17:53 PT/INR, D-dimer PT 25.0 Sec. (12.2-14.9) H 10/18/18 04:39 INR 2.22 (0.87-1.13) H 10/18/18 04:39 Abnormal lab findings: Abnormal Labs 10/11/18 10/11/18 10/11/18 05:21 05:21 05:21 WBC 22.3 H RBC 2.62 L Hgb 8.0 L Hct 24.5 L MCHC RDW 16.0 H Seg Neuts % (Manual) 90.0 H Lymphocytes % (Manual) 4.0 L Seg Neutrophils # Man 20.1 H Lymphocytes # (Manual) 0.9 L Basophils # (Manual) PT 17.1 H INR 1.35 H POC ABG pCO2 POC ABG pO2 VBG pH Sodium 133 L Potassium 2.8 L* Chloride 94.5 L Carbon Dioxide 11 L BUN 69 H Creatinine 5.0 H Glucose 362 H POC Glucose Lactic Acid Calcium 7.4 L Phosphorus Magnesium Alkaline Phosphatase Total Creatine Kinase Troponin T 0.116 H* Total Protein 6.2 L Albumin 2.1 L Cholesterol 26 L LDL Cholesterol Direct 4 L HDL Cholesterol 7 L Urine WBC (Auto) Crossmatch 10/11/18 10/11/18 10/11/18 05:21 05:21 05:21 WBC RBC Hgb Hct MCHC RDW Seg Neuts % (Manual) Lymphocytes % (Manual) Seg Neutrophils # Man Lymphocytes # (Manual) Basophils # (Manual) PT INR POC ABG pCO2 POC ABG pO2 VBG pH 7.226 L Sodium Potassium Chloride Carbon Dioxide BUN Creatinine Glucose POC Glucose Lactic Acid 7.40 H* Calcium Phosphorus Magnesium Alkaline Phosphatase Total Creatine Kinase 1094 H Troponin T Total Protein Albumin Cholesterol LDL Cholesterol Direct HDL Cholesterol Urine WBC (Auto) Crossmatch 10/11/18 10/11/18 10/11/18 06:08 06:51 06:51 WBC RBC Hgb Hct MCHC RDW Seg Neuts % (Manual) Lymphocytes % (Manual) Seg Neutrophils # Man Lymphocytes # (Manual) Basophils # (Manual) PT INR POC ABG pCO2 POC ABG pO2 VBG pH Sodium 132 L Potassium 3.1 L Chloride 94.3 L Carbon Dioxide 10 L BUN 68 H Creatinine 5.8 H Glucose 402 H POC Glucose Lactic Acid 7.80 H* Calcium 7.8 L Phosphorus 4.80 H Magnesium 0.90 L* Alkaline Phosphatase Total Creatine Kinase Troponin T Total Protein Albumin Cholesterol LDL Cholesterol Direct HDL Cholesterol Urine WBC (Auto) > 182.0 H Crossmatch 10/11/18 10/11/18 10/11/18 08:56 09:05 10:23 WBC RBC Hgb Hct MCHC RDW Seg Neuts % (Manual) Lymphocytes % (Manual) Seg Neutrophils # Man Lymphocytes # (Manual) Basophils # (Manual) PT INR POC ABG pCO2 POC ABG pO2 VBG pH Sodium Potassium Chloride Carbon Dioxide BUN Creatinine Glucose POC Glucose 367 H 305 H Lactic Acid Calcium Phosphorus Magnesium Alkaline Phosphatase Total Creatine Kinase Troponin T Total Protein Albumin Cholesterol LDL Cholesterol Direct HDL Cholesterol Urine WBC (Auto) Crossmatch See Detail 10/11/18 10/11/18 10/11/18 11:12 12:17 12:18 WBC RBC Hgb Hct MCHC RDW Seg Neuts % (Manual) Lymphocytes % (Manual) Seg Neutrophils # Man Lymphocytes # (Manual) Basophils # (Manual) PT INR POC ABG pCO2 POC ABG pO2 VBG pH Sodium 135 L Potassium 2.8 L* Chloride 97.9 L Carbon Dioxide 14 L BUN 67 H Creatinine 6.0 H Glucose 246 H POC Glucose 299 H 261 H Lactic Acid Calcium 7.5 L Phosphorus Magnesium Alkaline Phosphatase Total Creatine Kinase 1110 H Troponin T Total Protein Albumin Cholesterol LDL Cholesterol Direct HDL Cholesterol Urine WBC (Auto) Crossmatch 10/11/18 10/11/18 10/11/18 13:05 14:13 14:34 WBC RBC Hgb Hct MCHC RDW Seg Neuts % (Manual) Lymphocytes % (Manual) Seg Neutrophils # Man Lymphocytes # (Manual) Basophils # (Manual) PT INR POC ABG pCO2 POC ABG pO2 VBG pH Sodium 135 L Potassium 2.7 L* Chloride Carbon Dioxide 18 L BUN 68 H Creatinine 5.0 H Glucose 191 H POC Glucose 251 H 233 H Lactic Acid Calcium 7.1 L Phosphorus Magnesium Alkaline Phosphatase Total Creatine Kinase Troponin T Total Protein Albumin Cholesterol LDL Cholesterol Direct HDL Cholesterol Urine WBC (Auto) Crossmatch 10/11/18 10/11/18 10/11/18 15:08 16:00 17:20 WBC RBC Hgb Hct MCHC RDW Seg Neuts % (Manual) Lymphocytes % (Manual) Seg Neutrophils # Man Lymphocytes # (Manual) Basophils # (Manual) PT INR POC ABG pCO2 POC ABG pO2 VBG pH Sodium Potassium Chloride Carbon Dioxide BUN Creatinine Glucose POC Glucose 213 H 224 H 187 H Lactic Acid Calcium Phosphorus Magnesium Alkaline Phosphatase Total Creatine Kinase Troponin T Total Protein Albumin Cholesterol LDL Cholesterol Direct HDL Cholesterol Urine WBC (Auto) Crossmatch 10/11/18 10/11/18 10/11/18 17:53 17:58 18:12 WBC RBC Hgb Hct MCHC RDW Seg Neuts % (Manual) Lymphocytes % (Manual) Seg Neutrophils # Man Lymphocytes # (Manual) Basophils # (Manual) PT INR POC ABG pCO2 28.2 L POC ABG pO2 60 L VBG pH Sodium Potassium Chloride Carbon Dioxide BUN Creatinine Glucose POC Glucose 189 H Lactic Acid Calcium Phosphorus Magnesium Alkaline Phosphatase Total Creatine Kinase 933 H Troponin T Total Protein Albumin Cholesterol LDL Cholesterol Direct HDL Cholesterol Urine WBC (Auto) Crossmatch 10/11/18 10/11/18 10/11/18 18:58 20:16 21:10 WBC RBC Hgb Hct MCHC RDW Seg Neuts % (Manual) Lymphocytes % (Manual) Seg Neutrophils # Man Lymphocytes # (Manual) Basophils # (Manual) PT INR POC ABG pCO2 POC ABG pO2 VBG pH Sodium Potassium Chloride Carbon Dioxide BUN Creatinine Glucose POC Glucose 192 H 179 H 160 H Lactic Acid Calcium Phosphorus Magnesium Alkaline Phosphatase Total Creatine Kinase Troponin T Total Protein Albumin Cholesterol LDL Cholesterol Direct HDL Cholesterol Urine WBC (Auto) Crossmatch 10/11/18 10/11/18 10/11/18 22:14 22:42 23:09 WBC RBC Hgb Hct MCHC RDW Seg Neuts % (Manual) Lymphocytes % (Manual) Seg Neutrophils # Man Lymphocytes # (Manual) Basophils # (Manual) PT INR POC ABG pCO2 POC ABG pO2 VBG pH Sodium 136 L Potassium 2.9 L* Chloride Carbon Dioxide 17 L BUN 61 H Creatinine 4.0 H Glucose 122 H POC Glucose 145 H 129 H Lactic Acid Calcium 6.6 L Phosphorus Magnesium Alkaline Phosphatase Total Creatine Kinase Troponin T Total Protein Albumin Cholesterol LDL Cholesterol Direct HDL Cholesterol Urine WBC (Auto) Crossmatch 10/11/18 10/11/18 10/11/18 Unknown Unknown Unknown WBC RBC Hgb Hct MCHC RDW Seg Neuts % (Manual) Lymphocytes % (Manual) Seg Neutrophils # Man Lymphocytes # (Manual) Basophils # (Manual) PT INR POC ABG pCO2 POC ABG pO2 VBG pH Sodium 133 L Potassium 3.0 L Chloride 93.7 L Carbon Dioxide 9 L* BUN 67 H Creatinine 5.9 H Glucose 406 H POC Glucose Lactic Acid 8.50 H* Calcium 7.6 L Phosphorus Magnesium Alkaline Phosphatase Total Creatine Kinase Troponin T Total Protein Albumin Cholesterol LDL Cholesterol Direct HDL Cholesterol Urine WBC (Auto) > 182.0 H Crossmatch 10/12/18 10/12/18 10/12/18 00:18 01:42 02:03 WBC RBC Hgb Hct MCHC RDW Seg Neuts % (Manual) Lymphocytes % (Manual) Seg Neutrophils # Man Lymphocytes # (Manual) Basophils # (Manual) PT INR POC ABG pCO2 POC ABG pO2 VBG pH Sodium Potassium Chloride Carbon Dioxide BUN Creatinine Glucose POC Glucose 113 H 51 L 116 H Lactic Acid Calcium Phosphorus Magnesium Alkaline Phosphatase Total Creatine Kinase Troponin T Total Protein Albumin Cholesterol LDL Cholesterol Direct HDL Cholesterol Urine WBC (Auto) Crossmatch 10/12/18 10/12/18 10/12/18 03:09 04:20 04:20 WBC 26.8 H RBC 2.22 L Hgb 6.7 L Hct 19.4 L* MCHC 35 H RDW 15.8 H Seg Neuts % (Manual) Lymphocytes % (Manual) Seg Neutrophils # Man Lymphocytes # (Manual) Basophils # (Manual) PT INR POC ABG pCO2 POC ABG pO2 VBG pH Sodium Potassium 2.6 L* Chloride Carbon Dioxide 20 L BUN 56 H Creatinine 4.0 H Glucose 134 H POC Glucose 129 H Lactic Acid Calcium 6.4 L Phosphorus Magnesium 1.30 L Alkaline Phosphatase Total Creatine Kinase Troponin T Total Protein 5.8 L Albumin 1.8 L Cholesterol LDL Cholesterol Direct HDL Cholesterol Urine WBC (Auto) Crossmatch 10/12/18 10/12/18 10/12/18 04:22 05:25 06:25 WBC RBC Hgb Hct MCHC RDW Seg Neuts % (Manual) Lymphocytes % (Manual) Seg Neutrophils # Man Lymphocytes # (Manual) Basophils # (Manual) PT INR POC ABG pCO2 POC ABG pO2 VBG pH Sodium Potassium 2.7 L* Chloride Carbon Dioxide 19 L BUN 51 H Creatinine 3.6 H Glucose 113 H POC Glucose 186 H 131 H Lactic Acid Calcium 6.4 L Phosphorus Magnesium Alkaline Phosphatase Total Creatine Kinase Troponin T Total Protein Albumin Cholesterol LDL Cholesterol Direct HDL Cholesterol Urine WBC (Auto) Crossmatch 10/12/18 10/12/18 10/12/18 07:34 08:28 09:29 WBC RBC Hgb Hct MCHC RDW Seg Neuts % (Manual) Lymphocytes % (Manual) Seg Neutrophils # Man Lymphocytes # (Manual) Basophils # (Manual) PT INR POC ABG pCO2 POC ABG pO2 VBG pH Sodium Potassium Chloride Carbon Dioxide BUN Creatinine Glucose POC Glucose 120 H 110 H 140 H Lactic Acid Calcium Phosphorus Magnesium Alkaline Phosphatase Total Creatine Kinase Troponin T Total Protein Albumin Cholesterol LDL Cholesterol Direct HDL Cholesterol Urine WBC (Auto) Crossmatch 10/12/18 10/12/18 10/12/18 11:55 12:55 12:55 WBC RBC Hgb 7.1 L Hct 20.6 L MCHC RDW Seg Neuts % (Manual) Lymphocytes % (Manual) Seg Neutrophils # Man Lymphocytes # (Manual) Basophils # (Manual) PT INR POC ABG pCO2 POC ABG pO2 VBG pH Sodium 136 L Potassium 2.9 L* Chloride Carbon Dioxide 16 L BUN 48 H Creatinine 3.1 H Glucose 258 H POC Glucose 219 H Lactic Acid Calcium 6.3 L Phosphorus Magnesium Alkaline Phosphatase Total Creatine Kinase Troponin T Total Protein Albumin Cholesterol LDL Cholesterol Direct HDL Cholesterol Urine WBC (Auto) Crossmatch 10/12/18 10/12/18 10/12/18 12:55 17:49 19:23 WBC RBC Hgb 7.7 L Hct 22.9 L MCHC RDW Seg Neuts % (Manual) Lymphocytes % (Manual) Seg Neutrophils # Man Lymphocytes # (Manual) Basophils # (Manual) PT INR POC ABG pCO2 POC ABG pO2 VBG pH Sodium Potassium Chloride Carbon Dioxide BUN Creatinine Glucose POC Glucose 344 H Lactic Acid Calcium Phosphorus Magnesium 4.80 H Alkaline Phosphatase Total Creatine Kinase Troponin T Total Protein Albumin Cholesterol LDL Cholesterol Direct HDL Cholesterol Urine WBC (Auto) Crossmatch 10/12/18 10/13/18 10/13/18 22:21 00:15 05:28 WBC RBC Hgb Hct MCHC RDW Seg Neuts % (Manual) Lymphocytes % (Manual) Seg Neutrophils # Man Lymphocytes # (Manual) Basophils # (Manual) PT INR POC ABG pCO2 POC ABG pO2 VBG pH Sodium Potassium Chloride Carbon Dioxide BUN Creatinine Glucose POC Glucose 367 H 392 H 356 H Lactic Acid Calcium Phosphorus Magnesium Alkaline Phosphatase Total Creatine Kinase Troponin T Total Protein Albumin Cholesterol LDL Cholesterol Direct HDL Cholesterol Urine WBC (Auto) Crossmatch 10/13/18 10/13/18 10/13/18 05:30 05:30 06:37 WBC 19.2 H RBC 2.67 L Hgb 7.9 L Hct 23.2 L MCHC RDW 16.4 H Seg Neuts % (Manual) Lymphocytes % (Manual) Seg Neutrophils # Man Lymphocytes # (Manual) Basophils # (Manual) PT INR POC ABG pCO2 POC ABG pO2 VBG pH Sodium 135 L Potassium 2.8 L* Chloride Carbon Dioxide 17 L BUN 37 H Creatinine 2.0 H Glucose 383 H POC Glucose 413 H Lactic Acid Calcium 6.6 L Phosphorus Magnesium Alkaline Phosphatase Total Creatine Kinase Troponin T Total Protein Albumin Cholesterol LDL Cholesterol Direct HDL Cholesterol Urine WBC (Auto) Crossmatch 10/13/18 10/13/18 10/13/18 11:15 12:46 17:47 WBC RBC Hgb Hct MCHC RDW Seg Neuts % (Manual) Lymphocytes % (Manual) Seg Neutrophils # Man Lymphocytes # (Manual) Basophils # (Manual) PT INR POC ABG pCO2 POC ABG pO2 VBG pH Sodium Potassium 3.2 L Chloride Carbon Dioxide BUN Creatinine Glucose POC Glucose 220 H 181 H Lactic Acid Calcium Phosphorus Magnesium Alkaline Phosphatase Total Creatine Kinase Troponin T Total Protein Albumin Cholesterol LDL Cholesterol Direct HDL Cholesterol Urine WBC (Auto) Crossmatch 10/13/18 10/13/18 10/13/18 19:45 22:19 23:53 WBC RBC Hgb Hct MCHC RDW Seg Neuts % (Manual) Lymphocytes % (Manual) Seg Neutrophils # Man Lymphocytes # (Manual) Basophils # (Manual) PT INR POC ABG pCO2 POC ABG pO2 VBG pH Sodium Potassium Chloride Carbon Dioxide BUN Creatinine Glucose POC Glucose 185 H 153 H 152 H Lactic Acid Calcium Phosphorus Magnesium Alkaline Phosphatase Total Creatine Kinase Troponin T Total Protein Albumin Cholesterol LDL Cholesterol Direct HDL Cholesterol Urine WBC (Auto) Crossmatch 10/14/18 10/14/18 10/14/18 02:38 04:36 04:36 WBC 19.8 H RBC 3.02 L Hgb 8.9 L Hct 26.1 L MCHC RDW 16.7 H Seg Neuts % (Manual) Lymphocytes % (Manual) Seg Neutrophils # Man Lymphocytes # (Manual) Basophils # (Manual) PT INR POC ABG pCO2 POC ABG pO2 VBG pH Sodium Potassium 2.9 L* Chloride 121.6 H Carbon Dioxide 16 L BUN 25 H Creatinine 1.6 H Glucose 117 H POC Glucose 142 H Lactic Acid Calcium 7.0 L Phosphorus Magnesium Alkaline Phosphatase Total Creatine Kinase Troponin T Total Protein Albumin Cholesterol LDL Cholesterol Direct HDL Cholesterol Urine WBC (Auto) Crossmatch 10/14/18 10/14/18 10/14/18 04:36 09:45 10:59 WBC RBC Hgb Hct MCHC RDW Seg Neuts % (Manual) Lymphocytes % (Manual) Seg Neutrophils # Man Lymphocytes # (Manual) Basophils # (Manual) PT INR POC ABG pCO2 POC ABG pO2 VBG pH Sodium Potassium 3.2 L Chloride Carbon Dioxide BUN Creatinine Glucose POC Glucose 110 H Lactic Acid Calcium Phosphorus Magnesium 1.20 L Alkaline Phosphatase Total Creatine Kinase Troponin T Total Protein Albumin Cholesterol LDL Cholesterol Direct HDL Cholesterol Urine WBC (Auto) Crossmatch 10/14/18 10/14/18 10/14/18 14:22 17:41 22:58 WBC RBC Hgb Hct MCHC RDW Seg Neuts % (Manual) Lymphocytes % (Manual) Seg Neutrophils # Man Lymphocytes # (Manual) Basophils # (Manual) PT INR POC ABG pCO2 POC ABG pO2 VBG pH Sodium Potassium Chloride Carbon Dioxide BUN Creatinine Glucose POC Glucose 106 H 116 H 134 H Lactic Acid Calcium Phosphorus Magnesium Alkaline Phosphatase Total Creatine Kinase Troponin T Total Protein Albumin Cholesterol LDL Cholesterol Direct HDL Cholesterol Urine WBC (Auto) Crossmatch 10/15/18 10/15/18 10/15/18 06:14 11:21 11:21 WBC 31.9 H RBC 2.99 L Hgb 8.6 L Hct 26.4 L MCHC RDW 16.9 H Seg Neuts % (Manual) 92.0 H Lymphocytes % (Manual) 7.0 L Seg Neutrophils # Man 29.3 H Lymphocytes # (Manual) Basophils # (Manual) PT INR POC ABG pCO2 POC ABG pO2 VBG pH Sodium Potassium Chloride 111.6 H Carbon Dioxide 14 L BUN Creatinine Glucose 175 H POC Glucose 184 H Lactic Acid Calcium 7.2 L Phosphorus Magnesium Alkaline Phosphatase Total Creatine Kinase Troponin T Total Protein Albumin Cholesterol LDL Cholesterol Direct HDL Cholesterol Urine WBC (Auto) Crossmatch 10/15/18 10/15/18 10/15/18 11:21 11:27 14:43 WBC RBC Hgb Hct MCHC RDW Seg Neuts % (Manual) Lymphocytes % (Manual) Seg Neutrophils # Man Lymphocytes # (Manual) Basophils # (Manual) PT INR POC ABG pCO2 POC ABG pO2 VBG pH Sodium Potassium Chloride Carbon Dioxide BUN Creatinine Glucose POC Glucose 197 H 174 H Lactic Acid Calcium Phosphorus Magnesium 1.30 L Alkaline Phosphatase Total Creatine Kinase Troponin T Total Protein Albumin Cholesterol LDL Cholesterol Direct HDL Cholesterol Urine WBC (Auto) Crossmatch 10/15/18 10/15/18 10/15/18 16:06 20:13 23:55 WBC RBC Hgb Hct MCHC RDW Seg Neuts % (Manual) Lymphocytes % (Manual) Seg Neutrophils # Man Lymphocytes # (Manual) Basophils # (Manual) PT 26.5 H INR 2.40 H POC ABG pCO2 POC ABG pO2 VBG pH Sodium Potassium Chloride Carbon Dioxide BUN Creatinine Glucose POC Glucose 131 H 132 H Lactic Acid Calcium Phosphorus Magnesium Alkaline Phosphatase Total Creatine Kinase Troponin T Total Protein Albumin Cholesterol LDL Cholesterol Direct HDL Cholesterol Urine WBC (Auto) Crossmatch 10/16/18 10/16/18 10/16/18 05:08 05:08 05:08 WBC 29.6 H RBC 2.99 L Hgb 8.7 L Hct 27.7 L MCHC RDW 17.9 H Seg Neuts % (Manual) Lymphocytes % (Manual) Seg Neutrophils # Man Lymphocytes # (Manual) Basophils # (Manual) PT INR POC ABG pCO2 POC ABG pO2 VBG pH Sodium Potassium Chloride 119.9 H Carbon Dioxide 12 L BUN Creatinine Glucose 116 H POC Glucose Lactic Acid Calcium 6.7 L Phosphorus Magnesium 1.50 L Alkaline Phosphatase Total Creatine Kinase Troponin T Total Protein Albumin Cholesterol LDL Cholesterol Direct HDL Cholesterol Urine WBC (Auto) Crossmatch 10/16/18 10/16/18 10/16/18 05:08 05:49 17:44 WBC RBC Hgb Hct MCHC RDW Seg Neuts % (Manual) Lymphocytes % (Manual) Seg Neutrophils # Man Lymphocytes # (Manual) Basophils # (Manual) PT 22.2 H INR 1.90 H POC ABG pCO2 POC ABG pO2 VBG pH Sodium Potassium Chloride Carbon Dioxide BUN Creatinine Glucose POC Glucose 118 H 50 L Lactic Acid Calcium Phosphorus Magnesium Alkaline Phosphatase Total Creatine Kinase Troponin T Total Protein Albumin Cholesterol LDL Cholesterol Direct HDL Cholesterol Urine WBC (Auto) Crossmatch 10/16/18 10/16/18 10/17/18 18:29 19:33 00:04 WBC RBC Hgb Hct MCHC RDW Seg Neuts % (Manual) Lymphocytes % (Manual) Seg Neutrophils # Man Lymphocytes # (Manual) Basophils # (Manual) PT INR POC ABG pCO2 POC ABG pO2 VBG pH Sodium Potassium Chloride Carbon Dioxide BUN Creatinine Glucose POC Glucose 60 L 118 H 181 H Lactic Acid Calcium Phosphorus Magnesium Alkaline Phosphatase Total Creatine Kinase Troponin T Total Protein Albumin Cholesterol LDL Cholesterol Direct HDL Cholesterol Urine WBC (Auto) Crossmatch 10/17/18 10/17/18 10/17/18 04:52 04:52 05:26 WBC RBC Hgb Hct MCHC RDW Seg Neuts % (Manual) Lymphocytes % (Manual) Seg Neutrophils # Man Lymphocytes # (Manual) Basophils # (Manual) PT 20.9 H INR 1.76 H POC ABG pCO2 POC ABG pO2 VBG pH Sodium Potassium Chloride 113.4 H Carbon Dioxide 14 L BUN Creatinine Glucose 118 H POC Glucose 135 H Lactic Acid Calcium 7.0 L Phosphorus Magnesium Alkaline Phosphatase 219 H Total Creatine Kinase Troponin T Total Protein 5.5 L Albumin 1.3 L Cholesterol LDL Cholesterol Direct HDL Cholesterol Urine WBC (Auto) Crossmatch 10/17/18 10/17/18 10/17/18 12:15 17:40 23:15 WBC RBC Hgb Hct MCHC RDW Seg Neuts % (Manual) Lymphocytes % (Manual) Seg Neutrophils # Man Lymphocytes # (Manual) Basophils # (Manual) PT INR POC ABG pCO2 POC ABG pO2 VBG pH Sodium Potassium Chloride Carbon Dioxide BUN Creatinine Glucose POC Glucose 165 H 164 H 185 H Lactic Acid Calcium Phosphorus Magnesium Alkaline Phosphatase Total Creatine Kinase Troponin T Total Protein Albumin Cholesterol LDL Cholesterol Direct HDL Cholesterol Urine WBC (Auto) Crossmatch 01/30/19 01/30/19 01/30/19 04:39 04:39 04:39 WBC 28.7 H RBC 2.97 L Hgb 8.6 L Hct 26.0 L MCHC RDW 16.8 H Seg Neuts % (Manual) 90.0 H Lymphocytes % (Manual) 5.0 L Seg Neutrophils # Man 25.8 H Lymphocytes # (Manual) Basophils # (Manual) 0.3 H PT 25.0 H INR 2.22 H POC ABG pCO2 POC ABG pO2 VBG pH Sodium Potassium Chloride Carbon Dioxide BUN Creatinine Glucose POC Glucose Lactic Acid Calcium Phosphorus Magnesium 1.20 L Alkaline Phosphatase Total Creatine Kinase Troponin T Total Protein Albumin Cholesterol LDL Cholesterol Direct HDL Cholesterol Urine WBC (Auto) Crossmatch 10/18/18 10/18/18 10/18/18 05:18 08:11 12:23 WBC RBC Hgb Hct MCHC RDW Seg Neuts % (Manual) Lymphocytes % (Manual) Seg Neutrophils # Man Lymphocytes # (Manual) Basophils # (Manual) PT INR POC ABG pCO2 POC ABG pO2 VBG pH Sodium Potassium 3.0 L D Chloride 110.2 H Carbon Dioxide 20 L BUN Creatinine Glucose 185 H POC Glucose 185 H 217 H Lactic Acid Calcium 6.8 L Phosphorus Magnesium Alkaline Phosphatase Total Creatine Kinase Troponin T Total Protein Albumin Cholesterol LDL Cholesterol Direct HDL Cholesterol Urine WBC (Auto) Crossmatch Allied health notes reviewed: nursing
--- NOTE | 2018-10-18 13:30 | Progress Note ---
Assessment and Plan Cultures: 10/11/2018 blood culture: Beta Strep group C 2 of 4 bottles 10/11/2018 urine culture: mixed growth 10/13/2018 blood culture no growth A/P: 58-year-old male with diabetes mellitus, recent admission in August 2018 for an anal abscess, colostomy was sent to the emergency room from an SNF earlier this morning after he was noted to have a fever with shaking chills. Admitted with: #1 Severe sepsis with septic shock: fever resolved, back on levophed today @2, leukocytosis at 28K. Source could be either Strep bacteremia +/- infected and necrotic sacral wound +/- UTI. New Shock ? septic or cardiogenic. - CT abd showed ?chronic colitis, small bilateral pleural effusions, ileus, anasarca, bilateral renal calculi. #2 Strep group C bacteremia: likely source infected and necrotic sacral wound. 10/11/2018 blood culture Beta Strep group C 2 of 4 bottles. Repeat blood culture 10/13 no growth. TTE no vegetation #3 Catheter associated urinary tract infection: POA. UA showing significant pyuria. Suarez exchanged. Urine culture grew 10-100K mixed growth #4 Sacral decubitus ulcer, infected, stage 4: recent anal abscess status post debridement at [facility] in August 2018. Per surgery does not believe source of bacteremia is the infected decubitus. No bone exposed on exam. #5 Acute kidney injury/acute renal failure: Present on admission. Improving. #6 Elevated troponins: Cardiology on board. #7 Acute encephalopathy: probably from sepsis. better #8 Acute anemia: GI consulted. Recs: repeat blood culture today, UA, CRP/procal, CXR in light of shock Monitor leukocytosis Add vancomycin for now Continue cefepime and flagyl for now Will follow MD [facility] C: [phone] O: [phone] F: [phone] Subjective Date of service: 10/18/18 Principal diagnosis: Acute Toxic metabolic encephalopathy; Septic Shock; Severe Sepsis; DKA Interval history: Patient is alert, talking, no fever . Back on pressors levophed at 2. Had episode of SVT overnight, was on amiodarone. ROS: no fever, no chills, denies N/V/D, rash Objective - Exam Narrative Exam: Constitutional: Alert, cooperative. No acute distress on NC O2 Head, Ears, Nose: Normocephalic, atraumatic. External ears, nose normal Eyes: Conjunctivae/corneas clear. No icterus. No ptosis. Neck: Supple, no meningeal signs Oral: dentition poor, no thrush Cardiovascular: RRR Respiratory: Good air entry, clear to auscultation bilaterally GI: Soft, bowel sounds normal. +ostomy bag. +suarez Musculoskeletal: +bilateral leg edema. Large sacral wound with wound VAC Skin: No rash. Hem/Lymphatic: No palpable cervical or supraclavicular nodes. No lymphangitis Psych: Mood ok. Affect flat Neurological: Awake, alert, but not oriented. R IJ - Constitutional Vitals: Vital Signs Temp Pulse Resp BP Pulse Ox 97.9 F 84 35 H 94/66 100 10/18/18 12:51 10/18/18 13:14 10/18/18 09:20 10/18/18 13:14 10/18/18 09:20 Temperature -Last 24 Hours Temperature 97.9 F Temperature 98.0 F Temperature 98.5 F Temperature 98.9 F Temperature 98.6 F Temperature 98.5 F - Labs CBC & Chem 7: 10/18/18 04:39 10/18/18 08:11 Labs: Abnormal lab results 10/17/18 10/17/18 10/18/18 Range/Units 17:40 23:15 04:39 WBC (4.5-11.0) K/mm3 RBC (3.65-5.03) M/mm3 Hgb (11.8-15.2) gm/dl Hct (35.5-45.6) % RDW (13.2-15.2) % Seg Neuts % (Manual) (40.0-70.0) % Lymphocytes % (Manual) (13.4-35.0) % Seg Neutrophils # Man (1.8-7.7) K/mm3 Basophils # (Manual) (0.0-0.1) K/mm3 PT 25.0 H (12.2-14.9) Sec. INR 2.22 H (0.87-1.13) Potassium (3.6-5.0) mmol/L Chloride (98-107) mmol/L Carbon Dioxide (22-30) mmol/L Glucose (75-100) mg/dL POC Glucose 164 H 185 H (70-105) Calcium (8.4-10.2) mg/dL Magnesium (1.7-2.3) mg/dL 10/18/18 10/18/18 10/18/18 Range/Units 04:39 04:39 05:18 WBC 28.7 H (4.5-11.0) K/mm3 RBC 2.97 L (3.65-5.03) M/mm3 Hgb 8.6 L (11.8-15.2) gm/dl Hct 26.0 L (35.5-45.6) % RDW 16.8 H (13.2-15.2) % Seg Neuts % (Manual) 90.0 H (40.0-70.0) % Lymphocytes % (Manual) 5.0 L (13.4-35.0) % Seg Neutrophils # Man 25.8 H (1.8-7.7) K/mm3 Basophils # (Manual) 0.3 H (0.0-0.1) K/mm3 PT (12.2-14.9) Sec. INR (0.87-1.13) Potassium (3.6-5.0) mmol/L Chloride (98-107) mmol/L Carbon Dioxide (22-30) mmol/L Glucose (75-100) mg/dL POC Glucose 185 H (70-105) Calcium (8.4-10.2) mg/dL Magnesium 1.20 L (1.7-2.3) mg/dL 10/18/18 10/18/18 Range/Units 08:11 12:23 WBC (4.5-11.0) K/mm3 RBC (3.65-5.03) M/mm3 Hgb (11.8-15.2) gm/dl Hct (35.5-45.6) % RDW (13.2-15.2) % Seg Neuts % (Manual) (40.0-70.0) % Lymphocytes % (Manual) (13.4-35.0) % Seg Neutrophils # Man (1.8-7.7) K/mm3 Basophils # (Manual) (0.0-0.1) K/mm3 PT (12.2-14.9) Sec. INR (0.87-1.13) Potassium 3.0 L D (3.6-5.0) mmol/L Chloride 110.2 H (98-107) mmol/L Carbon Dioxide 20 L (22-30) mmol/L Glucose 185 H (75-100) mg/dL POC Glucose 217 H (70-105) Calcium 6.8 L (8.4-10.2) mg/dL Magnesium (1.7-2.3) mg/dL
[2018-10-18] MEDS ORDERED: .VANCOMYCIN VIAL 1,000 MG in NACL 0.9% 100 ML IV SCH (14:00)
[2018-10-18] MEDS ORDERED: K-DUR PO ONE (16:16)
--- NOTE | 2018-10-18 16:17 | Progress Note ---
Assessment and Plan Assessment and plan: Dinora is a 58 year old male presenting from [place] ([facility]) Pt is a very poor historian, per medical records he has history of paroxysmal atrial fibrillation, hypertension, diabetes, Colosotomy and lack of coordination with Muscle weakness anal abscess with recent debridement in Aug 2018, chronic indwelling suarez who was referred to the ER from his detention for evaluation of fever and low blood pressure and altered mental status. In the ER he was found to have urosepsis, acute renal failure and DKA with elevated troponin. Patient was unable to provided any information due to incoherence of his thoughts he complained of dry mouth per the ED Physician. He denies any chest pain, palpitations or shortness of breath. A report from the [place] revealed that he was noted this morning to be confused with shivering. Labs done the day prior to admission revealed a wbc of 31.4 per the staff. The patient in the ED was started on sepsis protocol and also pressers labs from detention done 10/10/17: wbc 31.4, hgb 9.1, plt 271 Source ?chronic colitis, small bilateral pleural effusions, ileus, anasarca, bilateral renal calculi. Acute Toxic metabolic encephalopathy Septic Shock Severe Sepsis Hyperosmolar NonKetotic Hyperglycemia Uncontrolled DM MALCOLM secondary to vasomotor nephropathy Severe acute blood loss anemia on anemia of chronic disease Metabolic acidosis Colostomy Unstagable scaral pressure ulcer POA Afib with RVR Troponemia- Type 2 NSTEMI Hypokalemia Severe Protein calorie malnutrition Plan Continue supportive care. Patient was placed on pressors transiently and currently off pressors Cont long acting insulin Discontinued Heparin drip in the setting of severe anemia- will start warfarin and monitor INR considering GI finding repeat chest xray TTE without any vegetation noted Renal function improvement noted Hgb improved following 3 units PRBC GI input noted. No high risk bleed risk noted. Transfuse PRBC as needed Cardiology, miner placer, ID, SURGICAL, nephrology input noted Sepsis protocol ET consult NOTED Wean pressors as tolerated PICC team for Access and D/C Right femoral Line. Replace electrolytes Fall precautions DVT/GI prophy Plan discussed with patient and also with Cardiology Patient had tachycardia and was given Cardizem and discussed with the nurse to start him back on pressors if blood pressure is dropping. The plan was to transfer to [facility] and recommended to stay in the ICU. He needs close monitoring. The high probability of a clinically significant, sudden or life threatening deterioration of the [VASCULAR, INTEGUMENTARY] system(s) required my full and direct attention, intervention and personal management. The aggregate critical care time was [35] minutes. This time is in addition to time spent performing reported procedures but includes the following: [X] Data Review and interpretation [X] Patient assessment and monitoring of vital signs [X] Documentation [X] Medication orders and management History Interval history: Patient was seen and evaluated this morning, patient was alert and oriented. Patient said he is feeling weak and said his BP is fluctuating. He required adenosine and pressors overnight. Hospitalist Physical - Physical exam Narrative exam: Not in cardiopulmonary distress. The patient appeared well nourished and normally developed. Vital signs as documented. Head exam is unremarkable. No scleral icterus . Neck is without jugular venous distension, thyromegaly, or carotid bruits. Lungs are clear to auscultation. Cardiac exam reveals regular rate and Rhythm. First and second heart sounds normal. No murmurs, rubs or gallops. Abdominal exam reveals normal bowel sounds, no masses, no organomegaly and no aortic enlargement. Extremities are nonedematous and both femoral and pedal pulses are normal. 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 No focal weakness. - Constitutional Vitals: Temp Pulse Resp BP Pulse Ox 97.9 F 85 44 H 100/61 99 10/18/18 12:51 10/18/18 14:50 10/18/18 14:50 10/18/18 14:50 10/18/18 14:50 General appearance: Present: mild distress, disheveled Results - Labs CBC & Chem 7: 10/18/18 04:39 10/18/18 08:11 Labs: Laboratory Last Values WBC 28.7 K/mm3 (4.5-11.0) H 10/18/18 04:39 RBC 2.97 M/mm3 (3.65-5.03) L 10/18/18 04:39 Hgb 8.6 gm/dl (11.8-15.2) L 10/18/18 04:39 Hct 26.0 % (35.5-45.6) L 10/18/18 04:39 MCV 87 fl (84-94) 10/18/18 04:39 MCH 29 pg (28-32) 10/18/18 04:39 MCHC 33 % (32-34) 10/18/18 04:39 RDW 16.8 % (13.2-15.2) H 10/18/18 04:39 Plt Count 396 K/mm3 (140-440) 10/18/18 04:39 Add Manual Diff Complete 10/18/18 04:39 Total Counted 100 10/18/18 04:39 Seg Neutrophils % Personnel Director 10/15/18 11:21 Seg Neuts % (Manual) 90.0 % (40.0-70.0) H 10/18/18 04:39 Band Neutrophils % 0 % 10/18/18 04:39 Lymphocytes % (Manual) 5.0 % (13.4-35.0) L 10/18/18 04:39 Reactive Lymphs % (Man) 0 % 10/18/18 04:39 Monocytes % (Manual) 1.0 % (0.0-7.3) 10/18/18 04:39 Eosinophils % (Manual) 1.0 % (0.0-4.3) 10/18/18 04:39 Basophils % (Manual) 1.0 % (0.0-1.8) 10/18/18 04:39 Metamyelocytes % 0 % 10/18/18 04:39 Myelocytes % 2.0 % 10/18/18 04:39 Promyelocytes % 0 % 10/18/18 04:39 Blast Cells % 0 % 10/18/18 04:39 Nucleated RBC % Not Reportable 10/18/18 04:39 Seg Neutrophils # Man 25.8 K/mm3 (1.8-7.7) H 10/18/18 04:39 Band Neutrophils # 0.0 K/mm3 10/18/18 04:39 Lymphocytes # (Manual) 1.4 K/mm3 (1.2-5.4) 10/18/18 04:39 Abs React Lymphs (Man) 0.0 K/mm3 10/18/18 04:39 Monocytes # (Manual) 0.3 K/mm3 (0.0-0.8) 10/18/18 04:39 Eosinophils # (Manual) 0.3 K/mm3 (0.0-0.4) 10/18/18 04:39 Basophils # (Manual) 0.3 K/mm3 (0.0-0.1) H 10/18/18 04:39 Metamyelocytes # 0.0 K/mm3 10/18/18 04:39 Myelocytes # 0.6 K/mm3 10/18/18 04:39 Promyelocytes # 0.0 K/mm3 10/18/18 04:39 Blast Cells # 0.0 K/mm3 10/18/18 04:39 WBC Morphology Not Reportable 10/18/18 04:39 Hypersegmented Neuts Not Reportable 10/18/18 04:39 Hyposegmented Neuts Not Reportable 10/18/18 04:39 Hypogranular Neuts Not Reportable 10/18/18 04:39 Smudge Cells Not Reportable 10/18/18 04:39 Toxic Granulation Not Reportable 10/18/18 04:39 Toxic Vacuolation Not Reportable 10/18/18 04:39 Dohle Bodies Not Reportable 10/18/18 04:39 Pelger-Huet Anomaly Not Reportable 10/18/18 04:39 Lisa Rods Not Reportable 10/18/18 04:39 Platelet Estimate Consistent w auto 10/18/18 04:39 Clumped Platelets Not Reportable 10/18/18 04:39 Plt Clumps, EDTA Not Reportable 10/18/18 04:39 Large Platelets Not Reportable 10/18/18 04:39 Giant Platelets Not Reportable 10/18/18 04:39 Platelet Satelliting Not Reportable 10/18/18 04:39 Plt Morphology Comment Not Reportable 10/18/18 04:39 RBC Morphology Not Reportable 10/18/18 04:39 Dimorphic RBCs Not Reportable 10/18/18 04:39 Polychromasia Not Reportable 10/18/18 04:39 Hypochromasia Not Reportable 10/18/18 04:39 Poikilocytosis 1+ 10/18/18 04:39 Anisocytosis 1+ 10/18/18 04:39 Microcytosis Not Reportable 10/18/18 04:39 Macrocytosis Few 10/18/18 04:39 Spherocytes Not Reportable 10/18/18 04:39 Pappenheimer Bodies Not Reportable 10/18/18 04:39 Sickle Cells Not Reportable 10/18/18 04:39 Target Cells Not Reportable 10/18/18 04:39 Tear Drop Cells Not Reportable 10/18/18 04:39 Ovalocytes Few 10/18/18 04:39 Helmet Cells Not Reportable 10/18/18 04:39 Brown-Elizabeth Bodies Not Reportable 10/18/18 04:39 [place] Rings Not Reportable 10/18/18 04:39 [place] Cells Not Reportable 10/18/18 04:39 Bite Cells Not Reportable 10/18/18 04:39 Crenated Cell Not Reportable 10/18/18 04:39 Elliptocytes Not Reportable 10/18/18 04:39 Acanthocytes (Spur) Not Reportable 10/18/18 04:39 Rouleaux Not Reportable 10/18/18 04:39 Hemoglobin C Crystals Not Reportable 10/18/18 04:39 Schistocytes Not Reportable 10/18/18 04:39 Malaria parasites Not Reportable 10/18/18 04:39 [place] Bodies Not Reportable 10/18/18 04:39 Hem Pathologist Commnt No 10/18/18 04:39 PT 25.0 Sec. (12.2-14.9) H 10/18/18 04:39 INR 2.22 (0.87-1.13) H 10/18/18 04:39 POC ABG pH 7.380 (7.35-7.45) 10/11/18 17:53 POC ABG pCO2 28.2 (35-45) L 10/11/18 17:53 POC ABG pO2 60 (80-105) L 10/11/18 17:53 POC ABG HCO3 16.7 10/11/18 17:53 POC ABG Total CO2 18 10/11/18 17:53 POC ABG O2 Sat 91 10/11/18 17:53 POC ABG Base Excess -8 10/11/18 17:53 VBG pH 7.226 (7.320-7.420) L 10/11/18 05:21 FiO2 2 % 10/11/18 17:53 Sodium 141 mmol/L (137-145) 10/18/18 08:11 Potassium 3.0 mmol/L (3.6-5.0) L D 10/18/18 08:11 Chloride 110.2 mmol/L (98-107) H 10/18/18 08:11 Carbon Dioxide 20 mmol/L (22-30) L 10/18/18 08:11 Anion Gap 14 mmol/L 10/18/18 08:11 BUN 11 mg/dL (9-20) 10/18/18 08:11 Creatinine 1.2 mg/dL (0.8-1.5) 10/18/18 08:11 Estimated GFR > 60 ml/min 10/18/18 08:11 BUN/Creatinine Ratio 9 % 10/18/18 08:11 Glucose 185 mg/dL (75-100) H 10/18/18 08:11 POC Glucose 217 (70-105) H 10/18/18 12:23 Lactic Acid 1.50 mmol/L (0.7-2.0) 10/12/18 04:20 Calcium 6.8 mg/dL (8.4-10.2) L 10/18/18 08:11 Phosphorus 4.80 mg/dL (2.5-4.5) H 10/11/18 06:51 Magnesium 1.20 mg/dL (1.7-2.3) L 10/18/18 04:39 Total Bilirubin 0.50 mg/dL (0.1-1.2) 10/17/18 04:52 AST 36 units/L (5-40) 10/17/18 04:52 ALT 10 units/L (7-56) 10/17/18 04:52 Alkaline Phosphatase 219 units/L (35-129) H 10/17/18 04:52 Total Creatine Kinase 933 units/L (55-170) H 10/11/18 17:58 CK-MB (CK-2) 2.8 ng/mL (0.0-4.0) 10/11/18 17:58 CK-MB (CK-2) Rel Index 0.3 (0-4) 10/11/18 17:58 Troponin T 0.116 ng/mL (0.00-0.029) H* 10/11/18 05:21 C-Reactive Protein 6.80 mg/dL (0.00-1.30) H 10/18/18 13:41 Total Protein 5.5 g/dL (6.3-8.2) L 10/17/18 04:52 Albumin 1.3 g/dL (3.9-5) L 10/17/18 04:52 Albumin/Globulin Ratio 0.3 % 10/17/18 04:52 Triglycerides 120 mg/dL (2-149) 10/11/18 05:21 Cholesterol 26 mg/dL (50-199) L 10/11/18 05:21 LDL Cholesterol Direct 4 mg/dL (50-130) L 10/11/18 05:21 HDL Cholesterol 7 mg/dL (40-59) L 10/11/18 05:21 Cholesterol/HDL Ratio 3.71 % 10/11/18 05:21 Urine Color Christine (Yellow) 10/11/18 Unknown Urine Turbidity Turbid (Clear) 10/11/18 Unknown Urine pH 5.0 (5.0-7.0) 10/11/18 Unknown Ur Specific [place] 1.019 (1.003-1.030) 10/11/18 Unknown Urine Protein 100 mg/dl mg/dL (Negative) 10/11/18 Unknown Urine Glucose (UA) Neg mg/dL (Negative) 10/11/18 Unknown Urine Ketones Neg mg/dL (Negative) 10/11/18 Unknown Urine Blood Sm (Negative) 10/11/18 Unknown Urine Nitrite Neg (Negative) 10/11/18 Unknown Urine Bilirubin Neg (Negative) 10/11/18 Unknown Urine Urobilinogen < 2.0 mg/dL (<2.0) 10/11/18 Unknown Ur Leukocyte Esterase Lg (Negative) 10/11/18 Unknown Urine WBC (Auto) > 182.0 /HPF (0.0-6.0) H 10/11/18 Unknown Urine RBC (Auto) 57.0 /HPF (0.0-6.0) 10/11/18 Unknown U Epithel Cells (Auto) 1.0 /HPF (0-13.0) 10/11/18 06:08 Urine Bacteria (Auto) 3+ /HPF (Negative) 10/11/18 Unknown Urine WBC Clumps 3+ /HPF 10/11/18 Unknown Urine Mucus 2+ /HPF 10/11/18 Unknown Random Vancomycin 5.7 ug/mL (0-40.0) 10/13/18 05:30 Blood Type A POSITIVE 10/11/18 09:05 Antibody Screen Negative 10/11/18 09:05 Crossmatch See Detail 10/11/18 09:05 Nutrition/Malnutrition Assess - Dietary Evaluation Nutrition/Malnutrition Findings: Nutrition Notes Start: 10/12/18 12:55 Freq: Status: Active Protocol: Document 10/17/18 15:39 AMY (Rec: 10/17/18 15:44 AMY [email or web address]) Nutrition Notes Initial or Follow up Brief Note Current Diet Consistent CHO Subjective/Other Information Pt says first time taking coumadin. He is amenable to ONS since he now says he is not eating well. He is a little groggy at time of visit (11:10). Nutrition Intervention Add Supplement/Snack (indicate name/kcal Glucerna BID /protein ) Provides kCal: 440 Provides Protein (gm) 20 Teaching Recipient Patient Learning Readiness Fair Teaching Methods Discussion Handout Response to Teaching Verbalize understanding Education Handouts Provided Vitamin K and Medications Barriers to Learning Physical RD phone number provided Yes Patient aware of follow up options Yes Actions To Overcome Barriers Other Follow-Up By: 10/19/18 Additional Comments F/U: intakes (meals/ONS)
[2018-10-18 17:08] LABS: Amorphous Crystals,Urine Few; Bacteria,Urine 1+ /HPF (Negative); Bilirubin,Urine NEG (Negative); Blood,Urine MOD (Negative); Color,Urine Amber (Yellow); Mucus,Urine FEW /HPF; Urobilinogen,Urine < 2.0 mg/dL (<2.0)
[2018-10-18] MEDS: COUMADIN PO SCH (17:21)
[2018-10-18] MEDS ORDERED: VANCOMYCIN 2,000 MG in NACL 0.9% 500 ML 500 ML IV ONE (18:00)
[2018-10-18] MEDS ORDERED: VANCOMYCIN 1,500 MG in NACL 0.9% 500 ML 500 ML IV ONE (18:00)
[2018-10-18] MEDS: CORDARONE PO SCH (21:45)
[2018-10-18] MEDS: LANTUS SUB-Q SCH (21:46)
[2018-10-19] MEDS: HumaLOG SUB-Q SCH ×4 (00:14→18:09)
[2018-10-19] MEDS: CARDIZEM PO SCH ×4 (00:21→18:06)
[2018-10-19] MEDS: SODIUM CHLORIDE FLUSH SYRINGE 10 ML IV SCH ×3 (00:22→21:18)
[2018-10-19] MEDS: DUONEB *Not for PRN Use IH SCH ×4 (02:16→20:06)
[2018-10-19 04:53] LABS: Hematocrit 23.3 % (35.5-45.6); Hemoglobin 7.8 gm/dl (11.8-15.2); Mean Corpuscular HGB Conc 34 % (32-34); Mean Corpuscular Volume 87 fl (84-94); Platelet Count 305 K/mm3 (140-440); Red Blood Count 2.67 M/mm3 (3.65-5.03)
[2018-10-19 05:08] LABS: INR 3.16 (0.87-1.13)
[2018-10-19 05:10] LABS: BUN/Creatinine Ratio 9; Blood Urea Nitrogen 12 mg/dL (9-20); Calcium 6.8 mg/dL (8.4-10.2); Hemolysis Index 12
[2018-10-19] MEDS: FLAGYL PO SCH ×3 (05:26→21:48)
[2018-10-19] MEDS ORDERED: VANCOMYCIN 1,500 MG in NACL 0.9% 500 ML 500 ML IV SCH (06:00)
[2018-10-19 06:38] LABS: Anisocytosis 1+; Band Neutrophils # (Manual) 0.5 K/mm3; Basophils % (Manual) 0 % (0.0-1.8); Total Cells Counted 100
[2018-10-19 06:39] LABS: Hypochromasia Few; Ovalocytes Few; Platelet Estimate Consistent w Auto; Poikilocytosis Few; Tear Drop Cells Rare
[2018-10-19] MEDS ORDERED: K-DUR PO ONE (08:00)
--- NOTE | 2018-10-19 09:02 | Progress Note ---
Assessment and Plan Acute Toxic metabolic encephalopathy Septic Shock Severe Sepsis DKA MALCOLM secondary to vasomotor nephropathy Metabolic acidosis Colostomy Unstagable scaral pressure ulcer POA Afib with RVR Troponemia- Type 2 NSTEMI Anemia of chronic disease Hypokalemia Severe Protein calorie malnutrition -continue to monitor in ICU for the next 24 hours to ensure he does not need vasopressor support -Bolus amiodarone 150mg given for Afib with RVR - continue antibiotics per ID and de-escalate per ID recommendations - continue GI & VTE prophylaxis - continue glycemic control with lantus insulin and SSI for target BG 140 to 180 mg/dL - TTE without vegetations - prn CBC re: Anemia (s/p 3 units PRBC's this admission) - PT/OT evaluation ongoing - continue mobility protocol for pressure ulcer prophylaxis - per surgery will plan for PEG placement if nutritional intake does not improve -mobility an doff loading on ongoing pressure ulcer preention -get records from previous admission at [facility] to evaluate who placed his suarez catheter -continue to hold coumadin - currently INR> 3, daily PT/INR -replace electrolytes as indicated CONDITION: CRITICAL PROGNOSIS: GUARDED CODE STATUS: FULL CODE The high probability of a clinically significant, sudden or life threatening deterioration of the [CARDIOVASCULAR, RENAL, ] system(s) required my full and direct attention, intervention and personal management. The aggregate critical care time was [32] minutes. This time is in addition to time spent performing reported procedures but includes the following: [X] Data Review and interpretation [X] Patient assessment and monitoring of vital signs [X] Documentation [X] Medication orders and management Subjective Date of service: 10/19/18 Principal diagnosis: Acute Toxic metabolic encephalopathy; Septic Shock; Severe Sepsis; DKA Interval history: Patient is seen today for: Acute Toxic metabolic encephalopathy; Septic Shock; S evere Sepsis; DKA; MALCOLM;moderate protein calorie malnutrition Seen and examined at bedside; 24hour events reviewed; nursing and respiratory care staff consulted; no adverse overnight events reported to me; resting peacefully in bed; off norepinephrine this morning. No fevers, no vomiting, no cough or chest pain. Appetite remains poor, discussed in ICU-IDT rounds need to objectively evaluate nutritional intake. Objective Vital Signs - 12hr 10/18/18 10/18/18 10/18/18 21:09 21:11 21:20 Temperature Pulse Rate 92 H Pulse Rate [ 91 H 89 Anterior Bilateral Throughout] Pulse Rate [ Apical] Pulse Rate [ From Monitor] Respiratory 34 H Rate Respiratory 32 H 28 H Rate [Anterior Bilateral Throughout] Blood Pressure 108/68 O2 Sat by Pulse 93 Oximetry 10/18/18 10/18/18 10/18/18 21:21 21:30 21:41 Temperature Pulse Rate 94 H 93 H 93 H Pulse Rate [ Anterior Bilateral Throughout] Pulse Rate [ Apical] Pulse Rate [ From Monitor] Respiratory 23 39 H 45 H Rate Respiratory Rate [Anterior Bilateral Throughout] Blood Pressure 108/68 98/64 98/64 O2 Sat by Pulse 94 93 90 Oximetry 10/18/18 10/18/18 10/18/18 21:51 22:00 22:11 Temperature Pulse Rate 92 H 91 H 92 H Pulse Rate [ Anterior Bilateral Throughout] Pulse Rate [ Apical] Pulse Rate [ From Monitor] Respiratory 33 H 38 H 52 H Rate Respiratory Rate [Anterior Bilateral Throughout] Blood Pressure 98/64 102/69 102/69 O2 Sat by Pulse 92 95 93 Oximetry 10/18/18 10/18/18 10/18/18 22:21 22:30 22:41 Temperature Pulse Rate 93 H 92 H 94 H Pulse Rate [ Anterior Bilateral Throughout] Pulse Rate [ Apical] Pulse Rate [ From Monitor] Respiratory 45 H 48 H 47 H Rate Respiratory Rate [Anterior Bilateral Throughout] Blood Pressure 102/69 103/61 103/61 O2 Sat by Pulse 93 93 94 Oximetry 10/18/18 10/18/18 10/18/18 22:51 23:00 23:11 Temperature Pulse Rate 99 H 92 H 91 H Pulse Rate [ Anterior Bilateral Throughout] Pulse Rate [ Apical] Pulse Rate [ From Monitor] Respiratory 18 41 H 34 H Rate Respiratory Rate [Anterior Bilateral Throughout] Blood Pressure 103/61 104/69 104/69 O2 Sat by Pulse 95 97 93 Oximetry 10/18/18 10/18/18 10/18/18 23:21 23:30 23:41 Temperature Pulse Rate 93 H 95 H 93 H Pulse Rate [ Anterior Bilateral Throughout] Pulse Rate [ Apical] Pulse Rate [ From Monitor] Respiratory 40 H 35 H 39 H Rate Respiratory Rate [Anterior Bilateral Throughout] Blood Pressure 104/69 110/64 104/69 O2 Sat by Pulse 92 92 94 Oximetry 10/18/18 10/19/18 10/19/18 23:51 00:00 00:03 Temperature 98.9 F Pulse Rate 94 H 92 H 93 H Pulse Rate [ Anterior Bilateral Throughout] Pulse Rate [ Apical] Pulse Rate [ From Monitor] Respiratory 20 37 H 38 H Rate Respiratory Rate [Anterior Bilateral Throughout] Blood Pressure 104/69 98/61 98/61 O2 Sat by Pulse 95 95 94 Oximetry 10/19/18 10/19/18 10/19/18 00:11 00:21 00:30 Temperature Pulse Rate 92 H 89 90 Pulse Rate [ Anterior Bilateral Throughout] Pulse Rate [ Apical] Pulse Rate [ From Monitor] Respiratory 38 H 38 H 35 H Rate Respiratory Rate [Anterior Bilateral Throughout] Blood Pressure 110/64 110/64 100/61 O2 Sat by Pulse 94 94 Oximetry 10/19/18 10/19/18 10/19/18 00:41 00:51 01:00 Temperature Pulse Rate 91 H 91 H 89 Pulse Rate [ Anterior Bilateral Throughout] Pulse Rate [ Apical] Pulse Rate [ From Monitor] Respiratory 35 H 35 H 35 H Rate Respiratory Rate [Anterior Bilateral Throughout] Blood Pressure 100/61 100/61 96/58 O2 Sat by Pulse 96 95 96 Oximetry 10/19/18 10/19/18 10/19/18 01:11 01:21 01:30 Temperature Pulse Rate 94 H 90 90 Pulse Rate [ Anterior Bilateral Throughout] Pulse Rate [ Apical] Pulse Rate [ From Monitor] Respiratory 32 H 36 H 40 H Rate Respiratory Rate [Anterior Bilateral Throughout] Blood Pressure 96/58 96/58 100/59 O2 Sat by Pulse 96 94 Oximetry 10/19/18 10/19/18 10/19/18 01:41 01:51 02:00 Temperature Pulse Rate 88 88 90 Pulse Rate [ Anterior Bilateral Throughout] Pulse Rate [ Apical] Pulse Rate [ From Monitor] Respiratory 35 H 34 H 39 H Rate Respiratory Rate [Anterior Bilateral Throughout] Blood Pressure 91/57 91/57 106/65 O2 Sat by Pulse 96 94 98 Oximetry 10/19/18 10/19/18 10/19/18 02:11 02:18 02:21 Temperature Pulse Rate 88 88 Pulse Rate [ 89 Anterior Bilateral Throughout] Pulse Rate [ Apical] Pulse Rate [ From Monitor] Respiratory 42 H 37 H Rate Respiratory 24 Rate [Anterior Bilateral Throughout] Blood Pressure 106/65 106/65 O2 Sat by Pulse 94 96 Oximetry 10/19/18 10/19/18 10/19/18 02:30 02:37 02:41 Temperature Pulse Rate 88 91 H Pulse Rate [ 90 Anterior Bilateral Throughout] Pulse Rate [ Apical] Pulse Rate [ From Monitor] Respiratory 38 H 39 H Rate Respiratory 36 H Rate [Anterior Bilateral Throughout] Blood Pressure 101/57 101/57 O2 Sat by Pulse 97 97 Oximetry 10/19/18 10/19/18 10/19/18 02:51 03:00 03:11 Temperature Pulse Rate 90 91 H 90 Pulse Rate [ Anterior Bilateral Throughout] Pulse Rate [ Apical] Pulse Rate [ From Monitor] Respiratory 35 H 33 H 34 H Rate Respiratory Rate [Anterior Bilateral Throughout] Blood Pressure 106/65 105/63 105/63 O2 Sat by Pulse 95 95 95 Oximetry 10/19/18 10/19/18 10/19/18 03:21 03:30 03:41 Temperature Pulse Rate 90 90 91 H Pulse Rate [ Anterior Bilateral Throughout] Pulse Rate [ Apical] Pulse Rate [ From Monitor] Respiratory 36 H 36 H 37 H Rate Respiratory Rate [Anterior Bilateral Throughout] Blood Pressure 105/63 101/59 101/59 O2 Sat by Pulse 94 93 94 Oximetry 10/19/18 10/19/18 10/19/18 03:51 04:00 04:11 Temperature 98.8 F Pulse Rate 92 H 89 90 Pulse Rate [ Anterior Bilateral Throughout] Pulse Rate [ Apical] Pulse Rate [ From Monitor] Respiratory 41 H 40 H 33 H Rate Respiratory Rate [Anterior Bilateral Throughout] Blood Pressure 101/59 95/57 95/57 O2 Sat by Pulse 94 97 94 Oximetry 10/19/18 10/19/18 10/19/18 04:21 04:30 04:41 Temperature Pulse Rate 89 90 89 Pulse Rate [ Anterior Bilateral Throughout] Pulse Rate [ Apical] Pulse Rate [ From Monitor] Respiratory 37 H 36 H 25 H Rate Respiratory Rate [Anterior Bilateral Throughout] Blood Pressure 95/57 105/61 105/61 O2 Sat by Pulse 94 95 89 Oximetry 10/19/18 10/19/18 10/19/18 04:43 04:51 05:00 Temperature Pulse Rate 91 H 90 Pulse Rate [ Anterior Bilateral Throughout] Pulse Rate [ Apical] Pulse Rate [ From Monitor] Respiratory 21 29 H 35 H Rate Respiratory Rate [Anterior Bilateral Throughout] Blood Pressure 105/61 108/67 O2 Sat by Pulse 97 96 Oximetry 10/19/18 10/19/18 10/19/18 05:11 05:21 05:25 Temperature Pulse Rate 95 H 90 89 Pulse Rate [ Anterior Bilateral Throughout] Pulse Rate [ Apical] Pulse Rate [ From Monitor] Respiratory 27 H 32 H Rate Respiratory Rate [Anterior Bilateral Throughout] Blood Pressure 108/67 108/67 108/67 O2 Sat by Pulse 97 95 Oximetry 10/19/18 10/19/18 10/19/18 05:30 05:41 05:51 Temperature Pulse Rate 90 90 87 Pulse Rate [ Anterior Bilateral Throughout] Pulse Rate [ Apical] Pulse Rate [ From Monitor] Respiratory 22 32 H 31 H Rate Respiratory Rate [Anterior Bilateral Throughout] Blood Pressure 101/59 101/59 101/59 O2 Sat by Pulse 96 95 95 Oximetry 10/19/18 10/19/18 10/19/18 06:00 06:11 06:21 Temperature Pulse Rate 87 89 86 Pulse Rate [ Anterior Bilateral Throughout] Pulse Rate [ Apical] Pulse Rate [ From Monitor] Respiratory 32 H 32 H 32 H Rate Respiratory Rate [Anterior Bilateral Throughout] Blood Pressure 93/57 93/57 93/57 O2 Sat by Pulse 94 95 95 Oximetry 10/19/18 10/19/18 10/19/18 06:30 06:41 06:51 Temperature Pulse Rate 87 87 87 Pulse Rate [ Anterior Bilateral Throughout] Pulse Rate [ Apical] Pulse Rate [ From Monitor] Respiratory 32 H 33 H 25 H Rate Respiratory Rate [Anterior Bilateral Throughout] Blood Pressure 85/61 93/58 93/58 O2 Sat by Pulse 95 95 95 Oximetry 10/19/18 10/19/18 10/19/18 07:00 07:11 07:21 Temperature Pulse Rate 85 85 86 Pulse Rate [ Anterior Bilateral Throughout] Pulse Rate [ Apical] Pulse Rate [ From Monitor] Respiratory 32 H 31 H 29 H Rate Respiratory Rate [Anterior Bilateral Throughout] Blood Pressure 95/59 95/59 93/58 O2 Sat by Pulse 98 96 Oximetry 10/19/18 10/19/18 10/19/18 07:30 07:41 07:51 Temperature Pulse Rate 86 88 87 Pulse Rate [ Anterior Bilateral Throughout] Pulse Rate [ Apical] Pulse Rate [ From Monitor] Respiratory 34 H 31 H 30 H Rate Respiratory Rate [Anterior Bilateral Throughout] Blood Pressure 101/64 101/64 101/64 O2 Sat by Pulse 95 95 95 Oximetry 10/19/18 10/19/18 10/19/18 08:00 08:19 08:59 Temperature 96.8 F L 97.9 F Pulse Rate 88 Pulse Rate [ 87 Anterior Bilateral Throughout] Pulse Rate [ 84 Apical] Pulse Rate [ 84 From Monitor] Respiratory 25 H Rate Respiratory 20 Rate [Anterior Bilateral Throughout] Blood Pressure 99/70 O2 Sat by Pulse 97 Oximetry Constitutional: alert, appears uncomfortable, other (elderly looking AAM, normocephalic and atraumatic with mildly increased resp effort at rest) Eyes: non-icteric ENT: oropharynx dry, other (Mallampati 2) Neck: supple, no lymphadenopathy, no JVD Effort: mildly labored Ascultation: Bilateral: clear Percussion: Bilateral: not dull Cardiovascular: irregular rhythm, other (No R/M) Gastrointestinal: hypoactive bowel sounds, soft, non-tender, non-distended, other (colostomy) Integumentary: rash, decubitus ulcer (sacral) Extremities: no cyanosis, no edema, pulses normal, no ischemia or petechiae Neurologic: normal mental status, non-focal exam (grossly), pupils equal and round, other (weak lower extremities) Psychiatric: mood appropriate, affect normal CBC and BMP: 10/19/18 04:00 10/20/18 04:14 ABG, PT/INR, D-dimer: ABG POC ABG pH 7.380 (7.35-7.45) 10/11/18 17:53 POC ABG pCO2 28.2 (35-45) L 10/11/18 17:53 POC ABG pO2 60 (80-105) L 10/11/18 17:53 POC ABG HCO3 16.7 10/11/18 17:53 POC ABG Total CO2 18 10/11/18 17:53 POC ABG O2 Sat 91 10/11/18 17:53 PT/INR, D-dimer PT 32.7 Sec. (12.2-14.9) H 10/19/18 05:17 INR 3.16 (0.87-1.13) H 10/19/18 05:17 Abnormal lab findings: Abnormal Labs 10/11/18 10/11/18 10/11/18 05:21 05:21 05:21 WBC 22.3 H RBC 2.62 L Hgb 8.0 L Hct 24.5 L MCHC RDW 16.0 H Seg Neuts % (Manual) 90.0 H Lymphocytes % (Manual) 4.0 L Seg Neutrophils # Man 20.1 H Lymphocytes # (Manual) 0.9 L Monocytes # (Manual) Eosinophils # (Manual) Basophils # (Manual) PT 17.1 H INR 1.35 H POC ABG pCO2 POC ABG pO2 VBG pH Sodium 133 L Potassium 2.8 L* Chloride 94.5 L Carbon Dioxide 11 L BUN 69 H Creatinine 5.0 H Glucose 362 H POC Glucose Lactic Acid Calcium 7.4 L Phosphorus Magnesium Alkaline Phosphatase Total Creatine Kinase Troponin T 0.116 H* C-Reactive Protein Total Protein 6.2 L Albumin 2.1 L Cholesterol 26 L LDL Cholesterol Direct 4 L HDL Cholesterol 7 L Urine WBC (Auto) Crossmatch 10/11/18 10/11/18 10/11/18 05:21 05:21 05:21 WBC RBC Hgb Hct MCHC RDW Seg Neuts % (Manual) Lymphocytes % (Manual) Seg Neutrophils # Man Lymphocytes # (Manual) Monocytes # (Manual) Eosinophils # (Manual) Basophils # (Manual) PT INR POC ABG pCO2 POC ABG pO2 VBG pH 7.226 L Sodium Potassium Chloride Carbon Dioxide BUN Creatinine Glucose POC Glucose Lactic Acid 7.40 H* Calcium Phosphorus Magnesium Alkaline Phosphatase Total Creatine Kinase 1094 H Troponin T C-Reactive Protein Total Protein Albumin Cholesterol LDL Cholesterol Direct HDL Cholesterol Urine WBC (Auto) Crossmatch 10/11/18 10/11/18 10/11/18 06:08 06:51 06:51 WBC RBC Hgb Hct MCHC RDW Seg Neuts % (Manual) Lymphocytes % (Manual) Seg Neutrophils # Man Lymphocytes # (Manual) Monocytes # (Manual) Eosinophils # (Manual) Basophils # (Manual) PT INR POC ABG pCO2 POC ABG pO2 VBG pH Sodium 132 L Potassium 3.1 L Chloride 94.3 L Carbon Dioxide 10 L BUN 68 H Creatinine 5.8 H Glucose 402 H POC Glucose Lactic Acid 7.80 H* Calcium 7.8 L Phosphorus 4.80 H Magnesium 0.90 L* Alkaline Phosphatase Total Creatine Kinase Troponin T C-Reactive Protein Total Protein Albumin Cholesterol LDL Cholesterol Direct HDL Cholesterol Urine WBC (Auto) > 182.0 H Crossmatch 10/11/18 10/11/18 10/11/18 08:56 09:05 10:23 WBC RBC Hgb Hct MCHC RDW Seg Neuts % (Manual) Lymphocytes % (Manual) Seg Neutrophils # Man Lymphocytes # (Manual) Monocytes # (Manual) Eosinophils # (Manual) Basophils # (Manual) PT INR POC ABG pCO2 POC ABG pO2 VBG pH Sodium Potassium Chloride Carbon Dioxide BUN Creatinine Glucose POC Glucose 367 H 305 H Lactic Acid Calcium Phosphorus Magnesium Alkaline Phosphatase Total Creatine Kinase Troponin T C-Reactive Protein Total Protein Albumin Cholesterol LDL Cholesterol Direct HDL Cholesterol Urine WBC (Auto) Crossmatch See Detail 10/11/18 10/11/18 10/11/18 11:12 12:17 12:18 WBC RBC Hgb Hct MCHC RDW Seg Neuts % (Manual) Lymphocytes % (Manual) Seg Neutrophils # Man Lymphocytes # (Manual) Monocytes # (Manual) Eosinophils # (Manual) Basophils # (Manual) PT INR POC ABG pCO2 POC ABG pO2 VBG pH Sodium 135 L Potassium 2.8 L* Chloride 97.9 L Carbon Dioxide 14 L BUN 67 H Creatinine 6.0 H Glucose 246 H POC Glucose 299 H 261 H Lactic Acid Calcium 7.5 L Phosphorus Magnesium Alkaline Phosphatase Total Creatine Kinase 1110 H Troponin T C-Reactive Protein Total Protein Albumin Cholesterol LDL Cholesterol Direct HDL Cholesterol Urine WBC (Auto) Crossmatch 10/11/18 10/11/18 10/11/18 13:05 14:13 14:34 WBC RBC Hgb Hct MCHC RDW Seg Neuts % (Manual) Lymphocytes % (Manual) Seg Neutrophils # Man Lymphocytes # (Manual) Monocytes # (Manual) Eosinophils # (Manual) Basophils # (Manual) PT INR POC ABG pCO2 POC ABG pO2 VBG pH Sodium 135 L Potassium 2.7 L* Chloride Carbon Dioxide 18 L BUN 68 H Creatinine 5.0 H Glucose 191 H POC Glucose 251 H 233 H Lactic Acid Calcium 7.1 L Phosphorus Magnesium Alkaline Phosphatase Total Creatine Kinase Troponin T C-Reactive Protein Total Protein Albumin Cholesterol LDL Cholesterol Direct HDL Cholesterol Urine WBC (Auto) Crossmatch 10/11/18 10/11/18 10/11/18 15:08 16:00 17:20 WBC RBC Hgb Hct MCHC RDW Seg Neuts % (Manual) Lymphocytes % (Manual) Seg Neutrophils # Man Lymphocytes # (Manual) Monocytes # (Manual) Eosinophils # (Manual) Basophils # (Manual) PT INR POC ABG pCO2 POC ABG pO2 VBG pH Sodium Potassium Chloride Carbon Dioxide BUN Creatinine Glucose POC Glucose 213 H 224 H 187 H Lactic Acid Calcium Phosphorus Magnesium Alkaline Phosphatase Total Creatine Kinase Troponin T C-Reactive Protein Total Protein Albumin Cholesterol LDL Cholesterol Direct HDL Cholesterol Urine WBC (Auto) Crossmatch 10/11/18 10/11/18 10/11/18 17:53 17:58 18:12 WBC RBC Hgb Hct MCHC RDW Seg Neuts % (Manual) Lymphocytes % (Manual) Seg Neutrophils # Man Lymphocytes # (Manual) Monocytes # (Manual) Eosinophils # (Manual) Basophils # (Manual) PT INR POC ABG pCO2 28.2 L POC ABG pO2 60 L VBG pH Sodium Potassium Chloride Carbon Dioxide BUN Creatinine Glucose POC Glucose 189 H Lactic Acid Calcium Phosphorus Magnesium Alkaline Phosphatase Total Creatine Kinase 933 H Troponin T C-Reactive Protein Total Protein Albumin Cholesterol LDL Cholesterol Direct HDL Cholesterol Urine WBC (Auto) Crossmatch 10/11/18 10/11/18 10/11/18 18:58 20:16 21:10 WBC RBC Hgb Hct MCHC RDW Seg Neuts % (Manual) Lymphocytes % (Manual) Seg Neutrophils # Man Lymphocytes # (Manual) Monocytes # (Manual) Eosinophils # (Manual) Basophils # (Manual) PT INR POC ABG pCO2 POC ABG pO2 VBG pH Sodium Potassium Chloride Carbon Dioxide BUN Creatinine Glucose POC Glucose 192 H 179 H 160 H Lactic Acid Calcium Phosphorus Magnesium Alkaline Phosphatase Total Creatine Kinase Troponin T C-Reactive Protein Total Protein Albumin Cholesterol LDL Cholesterol Direct HDL Cholesterol Urine WBC (Auto) Crossmatch 10/11/18 10/11/18 10/11/18 22:14 22:42 23:09 WBC RBC Hgb Hct MCHC RDW Seg Neuts % (Manual) Lymphocytes % (Manual) Seg Neutrophils # Man Lymphocytes # (Manual) Monocytes # (Manual) Eosinophils # (Manual) Basophils # (Manual) PT INR POC ABG pCO2 POC ABG pO2 VBG pH Sodium 136 L Potassium 2.9 L* Chloride Carbon Dioxide 17 L BUN 61 H Creatinine 4.0 H Glucose 122 H POC Glucose 145 H 129 H Lactic Acid Calcium 6.6 L Phosphorus Magnesium Alkaline Phosphatase Total Creatine Kinase Troponin T C-Reactive Protein Total Protein Albumin Cholesterol LDL Cholesterol Direct HDL Cholesterol Urine WBC (Auto) Crossmatch 10/11/18 10/11/18 10/11/18 Unknown Unknown Unknown WBC RBC Hgb Hct MCHC RDW Seg Neuts % (Manual) Lymphocytes % (Manual) Seg Neutrophils # Man Lymphocytes # (Manual) Monocytes # (Manual) Eosinophils # (Manual) Basophils # (Manual) PT INR POC ABG pCO2 POC ABG pO2 VBG pH Sodium 133 L Potassium 3.0 L Chloride 93.7 L Carbon Dioxide 9 L* BUN 67 H Creatinine 5.9 H Glucose 406 H POC Glucose Lactic Acid 8.50 H* Calcium 7.6 L Phosphorus Magnesium Alkaline Phosphatase Total Creatine Kinase Troponin T C-Reactive Protein Total Protein Albumin Cholesterol LDL Cholesterol Direct HDL Cholesterol Urine WBC (Auto) > 182.0 H Crossmatch 10/12/18 10/12/18 10/12/18 00:18 01:42 02:03 WBC RBC Hgb Hct MCHC RDW Seg Neuts % (Manual) Lymphocytes % (Manual) Seg Neutrophils # Man Lymphocytes # (Manual) Monocytes # (Manual) Eosinophils # (Manual) Basophils # (Manual) PT INR POC ABG pCO2 POC ABG pO2 VBG pH Sodium Potassium Chloride Carbon Dioxide BUN Creatinine Glucose POC Glucose 113 H 51 L 116 H Lactic Acid Calcium Phosphorus Magnesium Alkaline Phosphatase Total Creatine Kinase Troponin T C-Reactive Protein Total Protein Albumin Cholesterol LDL Cholesterol Direct HDL Cholesterol Urine WBC (Auto) Crossmatch 10/12/18 10/12/18 10/12/18 03:09 04:20 04:20 WBC 26.8 H RBC 2.22 L Hgb 6.7 L Hct 19.4 L* MCHC 35 H RDW 15.8 H Seg Neuts % (Manual) Lymphocytes % (Manual) Seg Neutrophils # Man Lymphocytes # (Manual) Monocytes # (Manual) Eosinophils # (Manual) Basophils # (Manual) PT INR POC ABG pCO2 POC ABG pO2 VBG pH Sodium Potassium 2.6 L* Chloride Carbon Dioxide 20 L BUN 56 H Creatinine 4.0 H Glucose 134 H POC Glucose 129 H Lactic Acid Calcium 6.4 L Phosphorus Magnesium 1.30 L Alkaline Phosphatase Total Creatine Kinase Troponin T C-Reactive Protein Total Protein 5.8 L Albumin 1.8 L Cholesterol LDL Cholesterol Direct HDL Cholesterol Urine WBC (Auto) Crossmatch 10/12/18 10/12/18 10/12/18 04:22 05:25 06:25 WBC RBC Hgb Hct MCHC RDW Seg Neuts % (Manual) Lymphocytes % (Manual) Seg Neutrophils # Man Lymphocytes # (Manual) Monocytes # (Manual) Eosinophils # (Manual) Basophils # (Manual) PT INR POC ABG pCO2 POC ABG pO2 VBG pH Sodium Potassium 2.7 L* Chloride Carbon Dioxide 19 L BUN 51 H Creatinine 3.6 H Glucose 113 H POC Glucose 186 H 131 H Lactic Acid Calcium 6.4 L Phosphorus Magnesium Alkaline Phosphatase Total Creatine Kinase Troponin T C-Reactive Protein Total Protein Albumin Cholesterol LDL Cholesterol Direct HDL Cholesterol Urine WBC (Auto) Crossmatch 10/12/18 10/12/18 10/12/18 07:34 08:28 09:29 WBC RBC Hgb Hct MCHC RDW Seg Neuts % (Manual) Lymphocytes % (Manual) Seg Neutrophils # Man Lymphocytes # (Manual) Monocytes # (Manual) Eosinophils # (Manual) Basophils # (Manual) PT INR POC ABG pCO2 POC ABG pO2 VBG pH Sodium Potassium Chloride Carbon Dioxide BUN Creatinine Glucose POC Glucose 120 H 110 H 140 H Lactic Acid Calcium Phosphorus Magnesium Alkaline Phosphatase Total Creatine Kinase Troponin T C-Reactive Protein Total Protein Albumin Cholesterol LDL Cholesterol Direct HDL Cholesterol Urine WBC (Auto) Crossmatch 10/12/18 10/12/18 10/12/18 11:55 12:55 12:55 WBC RBC Hgb 7.1 L Hct 20.6 L MCHC RDW Seg Neuts % (Manual) Lymphocytes % (Manual) Seg Neutrophils # Man Lymphocytes # (Manual) Monocytes # (Manual) Eosinophils # (Manual) Basophils # (Manual) PT INR POC ABG pCO2 POC ABG pO2 VBG pH Sodium 136 L Potassium 2.9 L* Chloride Carbon Dioxide 16 L BUN 48 H Creatinine 3.1 H Glucose 258 H POC Glucose 219 H Lactic Acid Calcium 6.3 L Phosphorus Magnesium Alkaline Phosphatase Total Creatine Kinase Troponin T C-Reactive Protein Total Protein Albumin Cholesterol LDL Cholesterol Direct HDL Cholesterol Urine WBC (Auto) Crossmatch 10/12/18 10/12/18 10/12/18 12:55 17:49 19:23 WBC RBC Hgb 7.7 L Hct 22.9 L MCHC RDW Seg Neuts % (Manual) Lymphocytes % (Manual) Seg Neutrophils # Man Lymphocytes # (Manual) Monocytes # (Manual) Eosinophils # (Manual) Basophils # (Manual) PT INR POC ABG pCO2 POC ABG pO2 VBG pH Sodium Potassium Chloride Carbon Dioxide BUN Creatinine Glucose POC Glucose 344 H Lactic Acid Calcium Phosphorus Magnesium 4.80 H Alkaline Phosphatase Total Creatine Kinase Troponin T C-Reactive Protein Total Protein Albumin Cholesterol LDL Cholesterol Direct HDL Cholesterol Urine WBC (Auto) Crossmatch 10/12/18 10/13/18 10/13/18 22:21 00:15 05:28 WBC RBC Hgb Hct MCHC RDW Seg Neuts % (Manual) Lymphocytes % (Manual) Seg Neutrophils # Man Lymphocytes # (Manual) Monocytes # (Manual) Eosinophils # (Manual) Basophils # (Manual) PT INR POC ABG pCO2 POC ABG pO2 VBG pH Sodium Potassium Chloride Carbon Dioxide BUN Creatinine Glucose POC Glucose 367 H 392 H 356 H Lactic Acid Calcium Phosphorus Magnesium Alkaline Phosphatase Total Creatine Kinase Troponin T C-Reactive Protein Total Protein Albumin Cholesterol LDL Cholesterol Direct HDL Cholesterol Urine WBC (Auto) Crossmatch 10/13/18 10/13/18 10/13/18 05:30 05:30 06:37 WBC 19.2 H RBC 2.67 L Hgb 7.9 L Hct 23.2 L MCHC RDW 16.4 H Seg Neuts % (Manual) Lymphocytes % (Manual) Seg Neutrophils # Man Lymphocytes # (Manual) Monocytes # (Manual) Eosinophils # (Manual) Basophils # (Manual) PT INR POC ABG pCO2 POC ABG pO2 VBG pH Sodium 135 L Potassium 2.8 L* Chloride Carbon Dioxide 17 L BUN 37 H Creatinine 2.0 H Glucose 383 H POC Glucose 413 H Lactic Acid Calcium 6.6 L Phosphorus Magnesium Alkaline Phosphatase Total Creatine Kinase Troponin T C-Reactive Protein Total Protein Albumin Cholesterol LDL Cholesterol Direct HDL Cholesterol Urine WBC (Auto) Crossmatch 10/13/18 10/13/18 10/13/18 11:15 12:46 17:47 WBC RBC Hgb Hct MCHC RDW Seg Neuts % (Manual) Lymphocytes % (Manual) Seg Neutrophils # Man Lymphocytes # (Manual) Monocytes # (Manual) Eosinophils # (Manual) Basophils # (Manual) PT INR POC ABG pCO2 POC ABG pO2 VBG pH Sodium Potassium 3.2 L Chloride Carbon Dioxide BUN Creatinine Glucose POC Glucose 220 H 181 H Lactic Acid Calcium Phosphorus Magnesium Alkaline Phosphatase Total Creatine Kinase Troponin T C-Reactive Protein Total Protein Albumin Cholesterol LDL Cholesterol Direct HDL Cholesterol Urine WBC (Auto) Crossmatch 10/13/18 10/13/18 10/13/18 19:45 22:19 23:53 WBC RBC Hgb Hct MCHC RDW Seg Neuts % (Manual) Lymphocytes % (Manual) Seg Neutrophils # Man Lymphocytes # (Manual) Monocytes # (Manual) Eosinophils # (Manual) Basophils # (Manual) PT INR POC ABG pCO2 POC ABG pO2 VBG pH Sodium Potassium Chloride Carbon Dioxide BUN Creatinine Glucose POC Glucose 185 H 153 H 152 H Lactic Acid Calcium Phosphorus Magnesium Alkaline Phosphatase Total Creatine Kinase Troponin T C-Reactive Protein Total Protein Albumin Cholesterol LDL Cholesterol Direct HDL Cholesterol Urine WBC (Auto) Crossmatch 10/14/18 10/14/18 10/14/18 02:38 04:36 04:36 WBC 19.8 H RBC 3.02 L Hgb 8.9 L Hct 26.1 L MCHC RDW 16.7 H Seg Neuts % (Manual) Lymphocytes % (Manual) Seg Neutrophils # Man Lymphocytes # (Manual) Monocytes # (Manual) Eosinophils # (Manual) Basophils # (Manual) PT INR POC ABG pCO2 POC ABG pO2 VBG pH Sodium Potassium 2.9 L* Chloride 121.6 H Carbon Dioxide 16 L BUN 25 H Creatinine 1.6 H Glucose 117 H POC Glucose 142 H Lactic Acid Calcium 7.0 L Phosphorus Magnesium Alkaline Phosphatase Total Creatine Kinase Troponin T C-Reactive Protein Total Protein Albumin Cholesterol LDL Cholesterol Direct HDL Cholesterol Urine WBC (Auto) Crossmatch 10/14/18 10/14/18 10/14/18 04:36 09:45 10:59 WBC RBC Hgb Hct MCHC RDW Seg Neuts % (Manual) Lymphocytes % (Manual) Seg Neutrophils # Man Lymphocytes # (Manual) Monocytes # (Manual) Eosinophils # (Manual) Basophils # (Manual) PT INR POC ABG pCO2 POC ABG pO2 VBG pH Sodium Potassium 3.2 L Chloride Carbon Dioxide BUN Creatinine Glucose POC Glucose 110 H Lactic Acid Calcium Phosphorus Magnesium 1.20 L Alkaline Phosphatase Total Creatine Kinase Troponin T C-Reactive Protein Total Protein Albumin Cholesterol LDL Cholesterol Direct HDL Cholesterol Urine WBC (Auto) Crossmatch 10/14/18 10/14/18 10/14/18 14:22 17:41 22:58 WBC RBC Hgb Hct MCHC RDW Seg Neuts % (Manual) Lymphocytes % (Manual) Seg Neutrophils # Man Lymphocytes # (Manual) Monocytes # (Manual) Eosinophils # (Manual) Basophils # (Manual) PT INR POC ABG pCO2 POC ABG pO2 VBG pH Sodium Potassium Chloride Carbon Dioxide BUN Creatinine Glucose POC Glucose 106 H 116 H 134 H Lactic Acid Calcium Phosphorus Magnesium Alkaline Phosphatase Total Creatine Kinase Troponin T C-Reactive Protein Total Protein Albumin Cholesterol LDL Cholesterol Direct HDL Cholesterol Urine WBC (Auto) Crossmatch 10/15/18 10/15/18 10/15/18 06:14 11:21 11:21 WBC 31.9 H RBC 2.99 L Hgb 8.6 L Hct 26.4 L MCHC RDW 16.9 H Seg Neuts % (Manual) 92.0 H Lymphocytes % (Manual) 7.0 L Seg Neutrophils # Man 29.3 H Lymphocytes # (Manual) Monocytes # (Manual) Eosinophils # (Manual) Basophils # (Manual) PT INR POC ABG pCO2 POC ABG pO2 VBG pH Sodium Potassium Chloride 111.6 H Carbon Dioxide 14 L BUN Creatinine Glucose 175 H POC Glucose 184 H Lactic Acid Calcium 7.2 L Phosphorus Magnesium Alkaline Phosphatase Total Creatine Kinase Troponin T C-Reactive Protein Total Protein Albumin Cholesterol LDL Cholesterol Direct HDL Cholesterol Urine WBC (Auto) Crossmatch 10/15/18 10/15/18 10/15/18 11:21 11:27 14:43 WBC RBC Hgb Hct MCHC RDW Seg Neuts % (Manual) Lymphocytes % (Manual) Seg Neutrophils # Man Lymphocytes # (Manual) Monocytes # (Manual) Eosinophils # (Manual) Basophils # (Manual) PT INR POC ABG pCO2 POC ABG pO2 VBG pH Sodium Potassium Chloride Carbon Dioxide BUN Creatinine Glucose POC Glucose 197 H 174 H Lactic Acid Calcium Phosphorus Magnesium 1.30 L Alkaline Phosphatase Total Creatine Kinase Troponin T C-Reactive Protein Total Protein Albumin Cholesterol LDL Cholesterol Direct HDL Cholesterol Urine WBC (Auto) Crossmatch 10/15/18 10/15/18 10/15/18 16:06 20:13 23:55 WBC RBC Hgb Hct MCHC RDW Seg Neuts % (Manual) Lymphocytes % (Manual) Seg Neutrophils # Man Lymphocytes # (Manual) Monocytes # (Manual) Eosinophils # (Manual) Basophils # (Manual) PT 26.5 H INR 2.40 H POC ABG pCO2 POC ABG pO2 VBG pH Sodium Potassium Chloride Carbon Dioxide BUN Creatinine Glucose POC Glucose 131 H 132 H Lactic Acid Calcium Phosphorus Magnesium Alkaline Phosphatase Total Creatine Kinase Troponin T C-Reactive Protein Total Protein Albumin Cholesterol LDL Cholesterol Direct HDL Cholesterol Urine WBC (Auto) Crossmatch 10/16/18 10/16/18 10/16/18 05:08 05:08 05:08 WBC 29.6 H RBC 2.99 L Hgb 8.7 L Hct 27.7 L MCHC RDW 17.9 H Seg Neuts % (Manual) Lymphocytes % (Manual) Seg Neutrophils # Man Lymphocytes # (Manual) Monocytes # (Manual) Eosinophils # (Manual) Basophils # (Manual) PT INR POC ABG pCO2 POC ABG pO2 VBG pH Sodium Potassium Chloride 119.9 H Carbon Dioxide 12 L BUN Creatinine Glucose 116 H POC Glucose Lactic Acid Calcium 6.7 L Phosphorus Magnesium 1.50 L Alkaline Phosphatase Total Creatine Kinase Troponin T C-Reactive Protein Total Protein Albumin Cholesterol LDL Cholesterol Direct HDL Cholesterol Urine WBC (Auto) Crossmatch 10/16/18 10/16/18 10/16/18 05:08 05:49 17:44 WBC RBC Hgb Hct MCHC RDW Seg Neuts % (Manual) Lymphocytes % (Manual) Seg Neutrophils # Man Lymphocytes # (Manual) Monocytes # (Manual) Eosinophils # (Manual) Basophils # (Manual) PT 22.2 H INR 1.90 H POC ABG pCO2 POC ABG pO2 VBG pH Sodium Potassium Chloride Carbon Dioxide BUN Creatinine Glucose POC Glucose 118 H 50 L Lactic Acid Calcium Phosphorus Magnesium Alkaline Phosphatase Total Creatine Kinase Troponin T C-Reactive Protein Total Protein Albumin Cholesterol LDL Cholesterol Direct HDL Cholesterol Urine WBC (Auto) Crossmatch 10/16/18 10/16/18 10/17/18 18:29 19:33 00:04 WBC RBC Hgb Hct MCHC RDW Seg Neuts % (Manual) Lymphocytes % (Manual) Seg Neutrophils # Man Lymphocytes # (Manual) Monocytes # (Manual) Eosinophils # (Manual) Basophils # (Manual) PT INR POC ABG pCO2 POC ABG pO2 VBG pH Sodium Potassium Chloride Carbon Dioxide BUN Creatinine Glucose POC Glucose 60 L 118 H 181 H Lactic Acid Calcium Phosphorus Magnesium Alkaline Phosphatase Total Creatine Kinase Troponin T C-Reactive Protein Total Protein Albumin Cholesterol LDL Cholesterol Direct HDL Cholesterol Urine WBC (Auto) Crossmatch 10/17/18 10/17/18 10/17/18 04:52 04:52 05:26 WBC RBC Hgb Hct MCHC RDW Seg Neuts % (Manual) Lymphocytes % (Manual) Seg Neutrophils # Man Lymphocytes # (Manual) Monocytes # (Manual) Eosinophils # (Manual) Basophils # (Manual) PT 20.9 H INR 1.76 H POC ABG pCO2 POC ABG pO2 VBG pH Sodium Potassium Chloride 113.4 H Carbon Dioxide 14 L BUN Creatinine Glucose 118 H POC Glucose 135 H Lactic Acid Calcium 7.0 L Phosphorus Magnesium Alkaline Phosphatase 219 H Total Creatine Kinase Troponin T C-Reactive Protein Total Protein 5.5 L Albumin 1.3 L Cholesterol LDL Cholesterol Direct HDL Cholesterol Urine WBC (Auto) Crossmatch 10/17/18 10/17/18 10/17/18 12:15 17:40 23:15 WBC RBC Hgb Hct MCHC RDW Seg Neuts % (Manual) Lymphocytes % (Manual) Seg Neutrophils # Man Lymphocytes # (Manual) Monocytes # (Manual) Eosinophils # (Manual) Basophils # (Manual) PT INR POC ABG pCO2 POC ABG pO2 VBG pH Sodium Potassium Chloride Carbon Dioxide BUN Creatinine Glucose POC Glucose 165 H 164 H 185 H Lactic Acid Calcium Phosphorus Magnesium Alkaline Phosphatase Total Creatine Kinase Troponin T C-Reactive Protein Total Protein Albumin Cholesterol LDL Cholesterol Direct HDL Cholesterol Urine WBC (Auto) Crossmatch 10/18/18 10/18/18 10/18/18 04:39 04:39 04:39 WBC 28.7 H RBC 2.97 L Hgb 8.6 L Hct 26.0 L MCHC RDW 16.8 H Seg Neuts % (Manual) 90.0 H Lymphocytes % (Manual) 5.0 L Seg Neutrophils # Man 25.8 H Lymphocytes # (Manual) Monocytes # (Manual) Eosinophils # (Manual) Basophils # (Manual) 0.3 H PT 25.0 H INR 2.22 H POC ABG pCO2 POC ABG pO2 VBG pH Sodium Potassium Chloride Carbon Dioxide BUN Creatinine Glucose POC Glucose Lactic Acid Calcium Phosphorus Magnesium 1.20 L Alkaline Phosphatase Total Creatine Kinase Troponin T C-Reactive Protein Total Protein Albumin Cholesterol LDL Cholesterol Direct HDL Cholesterol Urine WBC (Auto) Crossmatch 10/18/18 10/18/18 10/18/18 05:18 08:11 12:23 WBC RBC Hgb Hct MCHC RDW Seg Neuts % (Manual) Lymphocytes % (Manual) Seg Neutrophils # Man Lymphocytes # (Manual) Monocytes # (Manual) Eosinophils # (Manual) Basophils # (Manual) PT INR POC ABG pCO2 POC ABG pO2 VBG pH Sodium Potassium 3.0 L D Chloride 110.2 H Carbon Dioxide 20 L BUN Creatinine Glucose 185 H POC Glucose 185 H 217 H Lactic Acid Calcium 6.8 L Phosphorus Magnesium Alkaline Phosphatase Total Creatine Kinase Troponin T C-Reactive Protein Total Protein Albumin Cholesterol LDL Cholesterol Direct HDL Cholesterol Urine WBC (Auto) Crossmatch 10/18/18 10/18/18 10/18/18 13:41 16:32 16:35 WBC RBC Hgb Hct MCHC RDW Seg Neuts % (Manual) Lymphocytes % (Manual) Seg Neutrophils # Man Lymphocytes # (Manual) Monocytes # (Manual) Eosinophils # (Manual) Basophils # (Manual) PT INR POC ABG pCO2 POC ABG pO2 VBG pH Sodium Potassium Chloride Carbon Dioxide BUN Creatinine Glucose POC Glucose 118 H Lactic Acid Calcium Phosphorus Magnesium Alkaline Phosphatase Total Creatine Kinase Troponin T C-Reactive Protein 6.80 H Total Protein Albumin Cholesterol LDL Cholesterol Direct HDL Cholesterol Urine WBC (Auto) 22.0 H Crossmatch 10/18/18 10/19/18 10/19/18 23:45 04:00 04:00 WBC 24.1 H RBC 2.67 L Hgb 7.8 L Hct 23.3 L MCHC RDW 17.0 H Seg Neuts % (Manual) 73.0 H Lymphocytes % (Manual) Seg Neutrophils # Man 17.6 H Lymphocytes # (Manual) Monocytes # (Manual) 1.4 H Eosinophils # (Manual) 0.7 H Basophils # (Manual) PT INR POC ABG pCO2 POC ABG pO2 VBG pH Sodium Potassium 3.5 L Chloride 110.9 H Carbon Dioxide 21 L BUN Creatinine Glucose 113 H POC Glucose 147 H Lactic Acid Calcium 6.8 L Phosphorus Magnesium Alkaline Phosphatase Total Creatine Kinase Troponin T C-Reactive Protein Total Protein Albumin Cholesterol LDL Cholesterol Direct HDL Cholesterol Urine WBC (Auto) Crossmatch 10/19/18 10/19/18 05:16 05:17 WBC RBC Hgb Hct MCHC RDW Seg Neuts % (Manual) Lymphocytes % (Manual) Seg Neutrophils # Man Lymphocytes # (Manual) Monocytes # (Manual) Eosinophils # (Manual) Basophils # (Manual) PT 32.7 H INR 3.16 H POC ABG pCO2 POC ABG pO2 VBG pH Sodium Potassium Chloride Carbon Dioxide BUN Creatinine Glucose POC Glucose 117 H Lactic Acid Calcium Phosphorus Magnesium Alkaline Phosphatase Total Creatine Kinase Troponin T C-Reactive Protein Total Protein Albumin Cholesterol LDL Cholesterol Direct HDL Cholesterol Urine WBC (Auto) Crossmatch Allied health notes reviewed: nursing
[2018-10-19] MEDS: CORDARONE PO SCH ×2 (10:15→21:48)
[2018-10-19] MEDS: PROTONIX PO SCH (10:15)
[2018-10-19] MEDS: SODIUM BICARBONATE PO SCH ×2 (10:16→21:48)
[2018-10-19] MEDS: ROCEPHIN/NS 2 GM/100 ML 2 GM/100 ML BAG IV SCH (10:16)
--- NOTE | 2018-10-19 11:30 | Progress Note ---
Assessment and Plan - Patient Problems (1) Sacral decubitus ulcer, stage IV Current Visit: Yes Status: Chronic Plan to address problem: 1) Continue off loading 2) Continue wound vac 3) Pt already has a colostomy 4) Intense nutritional support. Oral intake now is poor. If this does not improve over the next few days, I will place a PEG tube. Subjective Date of service: 10/19/18 Patient Reports: Positive: no new complaints, feels better Objective Vital Signs - 12hr 10/18/18 10/18/18 10/18/18 23:30 23:41 23:51 Temperature Pulse Rate 95 H 93 H 94 H Pulse Rate [ Anterior Bilateral Throughout] Pulse Rate [ Apical] Pulse Rate [ From Monitor] Respiratory 35 H 39 H 20 Rate Respiratory Rate [Anterior Bilateral Throughout] Blood Pressure 110/64 104/69 104/69 O2 Sat by Pulse 92 94 95 Oximetry 10/19/18 10/19/18 10/19/18 00:00 00:03 00:11 Temperature 98.9 F Pulse Rate 92 H 93 H 92 H Pulse Rate [ Anterior Bilateral Throughout] Pulse Rate [ Apical] Pulse Rate [ From Monitor] Respiratory 37 H 38 H 38 H Rate Respiratory Rate [Anterior Bilateral Throughout] Blood Pressure 98/61 98/61 110/64 O2 Sat by Pulse 95 94 94 Oximetry 10/19/18 10/19/18 10/19/18 00:21 00:30 00:41 Temperature Pulse Rate 89 90 91 H Pulse Rate [ Anterior Bilateral Throughout] Pulse Rate [ Apical] Pulse Rate [ From Monitor] Respiratory 38 H 35 H 35 H Rate Respiratory Rate [Anterior Bilateral Throughout] Blood Pressure 110/64 100/61 100/61 O2 Sat by Pulse 94 96 Oximetry 10/19/18 10/19/18 10/19/18 00:51 01:00 01:11 Temperature Pulse Rate 91 H 89 94 H Pulse Rate [ Anterior Bilateral Throughout] Pulse Rate [ Apical] Pulse Rate [ From Monitor] Respiratory 35 H 35 H 32 H Rate Respiratory Rate [Anterior Bilateral Throughout] Blood Pressure 100/61 96/58 96/58 O2 Sat by Pulse 95 96 96 Oximetry 10/19/18 10/19/18 10/19/18 01:21 01:30 01:41 Temperature Pulse Rate 90 90 88 Pulse Rate [ Anterior Bilateral Throughout] Pulse Rate [ Apical] Pulse Rate [ From Monitor] Respiratory 36 H 40 H 35 H Rate Respiratory Rate [Anterior Bilateral Throughout] Blood Pressure 96/58 100/59 91/57 O2 Sat by Pulse 94 96 Oximetry 10/19/18 10/19/18 10/19/18 01:51 02:00 02:11 Temperature Pulse Rate 88 90 88 Pulse Rate [ Anterior Bilateral Throughout] Pulse Rate [ Apical] Pulse Rate [ From Monitor] Respiratory 34 H 39 H 42 H Rate Respiratory Rate [Anterior Bilateral Throughout] Blood Pressure 91/57 106/65 106/65 O2 Sat by Pulse 94 98 94 Oximetry 10/19/18 10/19/18 10/19/18 02:18 02:21 02:30 Temperature Pulse Rate 88 88 Pulse Rate [ 89 Anterior Bilateral Throughout] Pulse Rate [ Apical] Pulse Rate [ From Monitor] Respiratory 37 H 38 H Rate Respiratory 24 Rate [Anterior Bilateral Throughout] Blood Pressure 106/65 101/57 O2 Sat by Pulse 96 97 Oximetry 10/19/18 10/19/18 10/19/18 02:37 02:41 02:51 Temperature Pulse Rate 91 H 90 Pulse Rate [ 90 Anterior Bilateral Throughout] Pulse Rate [ Apical] Pulse Rate [ From Monitor] Respiratory 39 H 35 H Rate Respiratory 36 H Rate [Anterior Bilateral Throughout] Blood Pressure 101/57 106/65 O2 Sat by Pulse 97 95 Oximetry 10/19/18 10/19/18 10/19/18 03:00 03:11 03:21 Temperature Pulse Rate 91 H 90 90 Pulse Rate [ Anterior Bilateral Throughout] Pulse Rate [ Apical] Pulse Rate [ From Monitor] Respiratory 33 H 34 H 36 H Rate Respiratory Rate [Anterior Bilateral Throughout] Blood Pressure 105/63 105/63 105/63 O2 Sat by Pulse 95 95 94 Oximetry 10/19/18 10/19/18 10/19/18 03:30 03:41 03:51 Temperature Pulse Rate 90 91 H 92 H Pulse Rate [ Anterior Bilateral Throughout] Pulse Rate [ Apical] Pulse Rate [ From Monitor] Respiratory 36 H 37 H 41 H Rate Respiratory Rate [Anterior Bilateral Throughout] Blood Pressure 101/59 101/59 101/59 O2 Sat by Pulse 93 94 94 Oximetry 10/19/18 10/19/18 10/19/18 04:00 04:11 04:21 Temperature 98.8 F Pulse Rate 89 90 89 Pulse Rate [ Anterior Bilateral Throughout] Pulse Rate [ Apical] Pulse Rate [ From Monitor] Respiratory 40 H 33 H 37 H Rate Respiratory Rate [Anterior Bilateral Throughout] Blood Pressure 95/57 95/57 95/57 O2 Sat by Pulse 97 94 94 Oximetry 10/19/18 10/19/18 10/19/18 04:30 04:41 04:43 Temperature Pulse Rate 90 89 Pulse Rate [ Anterior Bilateral Throughout] Pulse Rate [ Apical] Pulse Rate [ From Monitor] Respiratory 36 H 25 H 21 Rate Respiratory Rate [Anterior Bilateral Throughout] Blood Pressure 105/61 105/61 O2 Sat by Pulse 95 89 Oximetry 10/19/18 10/19/18 10/19/18 04:51 05:00 05:11 Temperature Pulse Rate 91 H 90 95 H Pulse Rate [ Anterior Bilateral Throughout] Pulse Rate [ Apical] Pulse Rate [ From Monitor] Respiratory 29 H 35 H 27 H Rate Respiratory Rate [Anterior Bilateral Throughout] Blood Pressure 105/61 108/67 108/67 O2 Sat by Pulse 97 96 97 Oximetry 10/19/18 10/19/18 10/19/18 05:21 05:25 05:30 Temperature Pulse Rate 90 89 90 Pulse Rate [ Anterior Bilateral Throughout] Pulse Rate [ Apical] Pulse Rate [ From Monitor] Respiratory 32 H 22 Rate Respiratory Rate [Anterior Bilateral Throughout] Blood Pressure 108/67 108/67 101/59 O2 Sat by Pulse 95 96 Oximetry 10/19/18 10/19/18 10/19/18 05:41 05:51 06:00 Temperature Pulse Rate 90 87 87 Pulse Rate [ Anterior Bilateral Throughout] Pulse Rate [ Apical] Pulse Rate [ From Monitor] Respiratory 32 H 31 H 32 H Rate Respiratory Rate [Anterior Bilateral Throughout] Blood Pressure 101/59 101/59 93/57 O2 Sat by Pulse 95 95 94 Oximetry 10/19/18 10/19/18 10/19/18 06:11 06:21 06:30 Temperature Pulse Rate 89 86 87 Pulse Rate [ Anterior Bilateral Throughout] Pulse Rate [ Apical] Pulse Rate [ From Monitor] Respiratory 32 H 32 H 32 H Rate Respiratory Rate [Anterior Bilateral Throughout] Blood Pressure 93/57 93/57 85/61 O2 Sat by Pulse 95 95 95 Oximetry 10/19/18 10/19/18 10/19/18 06:41 06:51 07:00 Temperature Pulse Rate 87 87 85 Pulse Rate [ Anterior Bilateral Throughout] Pulse Rate [ Apical] Pulse Rate [ From Monitor] Respiratory 33 H 25 H 32 H Rate Respiratory Rate [Anterior Bilateral Throughout] Blood Pressure 93/58 93/58 95/59 O2 Sat by Pulse 95 95 Oximetry 10/19/18 10/19/18 10/19/18 07:11 07:21 07:30 Temperature Pulse Rate 85 86 86 Pulse Rate [ Anterior Bilateral Throughout] Pulse Rate [ Apical] Pulse Rate [ From Monitor] Respiratory 31 H 29 H 34 H Rate Respiratory Rate [Anterior Bilateral Throughout] Blood Pressure 95/59 93/58 101/64 O2 Sat by Pulse 98 96 95 Oximetry 10/19/18 10/19/18 10/19/18 07:41 07:51 08:00 Temperature 96.8 F L Pulse Rate 88 87 88 Pulse Rate [ Anterior Bilateral Throughout] Pulse Rate [ 84 Apical] Pulse Rate [ 84 From Monitor] Respiratory 31 H 30 H 25 H Rate Respiratory Rate [Anterior Bilateral Throughout] Blood Pressure 101/64 101/64 99/70 O2 Sat by Pulse 95 95 97 Oximetry 10/19/18 10/19/18 10/19/18 08:11 08:19 08:21 Temperature 97.9 F Pulse Rate 84 85 Pulse Rate [ Anterior Bilateral Throughout] Pulse Rate [ Apical] Pulse Rate [ From Monitor] Respiratory 32 H 45 H Rate Respiratory Rate [Anterior Bilateral Throughout] Blood Pressure 99/70 99/70 O2 Sat by Pulse 96 92 Oximetry 10/19/18 10/19/18 10/19/18 08:30 08:41 08:51 Temperature Pulse Rate 84 83 85 Pulse Rate [ Anterior Bilateral Throughout] Pulse Rate [ Apical] Pulse Rate [ From Monitor] Respiratory 41 H 39 H 46 H Rate Respiratory Rate [Anterior Bilateral Throughout] Blood Pressure 104/71 104/71 104/71 O2 Sat by Pulse 96 96 95 Oximetry 10/19/18 10/19/18 10/19/18 08:59 09:01 09:15 Temperature Pulse Rate 85 Pulse Rate [ 87 85 Anterior Bilateral Throughout] Pulse Rate [ Apical] Pulse Rate [ From Monitor] Respiratory 18 Rate Respiratory 20 20 Rate [Anterior Bilateral Throughout] Blood Pressure 104/67 O2 Sat by Pulse 96 Oximetry - Integumentary other (Sacral decubitus with some (small amount) of necrotic tissue superiorly. No evidence of active infection.) - Labs 10/19/18 04:00 10/19/18 04:00 Diabetes panel 10/19/18 Range/Units 04:00 Sodium 140 (137-145) mmol/L Potassium 3.5 L (3.6-5.0) mmol/L Chloride 110.9 H (98-107) mmol/L Carbon Dioxide 21 L (22-30) mmol/L BUN 12 (9-20) mg/dL Creatinine 1.4 (0.8-1.5) mg/dL Glucose 113 H (75-100) mg/dL Calcium 6.8 L (8.4-10.2) mg/dL Calcium panel 10/19/18 Range/Units 04:00 Calcium 6.8 L (8.4-10.2) mg/dL Pituitary panel 10/19/18 Range/Units 04:00 Sodium 140 (137-145) mmol/L Potassium 3.5 L (3.6-5.0) mmol/L Chloride 110.9 H (98-107) mmol/L Carbon Dioxide 21 L (22-30) mmol/L BUN 12 (9-20) mg/dL Creatinine 1.4 (0.8-1.5) mg/dL Glucose 113 H (75-100) mg/dL Calcium 6.8 L (8.4-10.2) mg/dL Adrenal panel 10/19/18 Range/Units 04:00 Sodium 140 (137-145) mmol/L Potassium 3.5 L (3.6-5.0) mmol/L Chloride 110.9 H (98-107) mmol/L Carbon Dioxide 21 L (22-30) mmol/L BUN 12 (9-20) mg/dL Creatinine 1.4 (0.8-1.5) mg/dL Glucose 113 H (75-100) mg/dL Calcium 6.8 L (8.4-10.2) mg/dL - Imaging Additional Studies: Albumin on 10/17/18 was 1.3.
[2018-10-19] MEDS: SODIUM BICARBONATE 150 MEQ, KCL 20 MEQ in D5W 1,000 ML IV SCH (12:23)
--- NOTE | 2018-10-19 12:34 | Progress Note ---
Assessment and Plan Continue present cardiac management. Replete electrolytes PRN. The patient has been seen in conjunction with Dr. Hansen who agrees with the assessment and plan of care. - Patient Problems (1) Sepsis Current Visit: Yes Status: Acute (2) Hypotension Current Visit: Yes Status: Acute (3) Paroxysmal atrial fibrillation with RVR Current Visit: Yes Status: Chronic (4) UTI (urinary tract infection) Current Visit: Yes Status: Acute (5) Elevated troponin Current Visit: Yes Status: Acute (6) Acute renal failure Current Visit: Yes Status: Acute (7) Hyperglycemic hyperosmolar nonketotic coma Current Visit: Yes Status: Acute (8) Anemia Current Visit: Yes Status: Acute (9) Hypomagnesemia Current Visit: Yes Status: Acute (10) Hypokalemia Current Visit: Yes Status: Acute (11) Sacral decubitus ulcer Current Visit: Yes Status: Chronic (12) SVT (supraventricular tachycardia) Current Visit: Yes Status: Acute Subjective Date of service: 10/19/18 Principal diagnosis: Acute Toxic metabolic encephalopathy; Septic Shock; Severe Sepsis; DKA Interval history: pt resting in bed, no apparent distress, no current cardiac complaints. in SR on telemetry, no SVT overnight. currently off levophed gtt. Objective Last Vital Signs Temp 98.0 F 10/19/18 12:31 Pulse 91 H 10/19/18 12:29 Resp 28 H 10/19/18 12:11 BP 107/69 10/19/18 12:29 Pulse Ox 95 10/19/18 12:11 - Physical Examination General: No Apparent Distress HEENT: Positive: Normocephaly, Mucus Membranes Moist Neck: Positive: neck supple, trachea midline Cardiac: Positive: Reg Rate and Rhythm, S1/S2 Lungs: Positive: Decreased Breath Sounds Neuro: Positive: Other (disoriented) Abdomen: Positive: Soft Extremities: Absent: edema - Labs and Meds Coagulation 10/19/18 Range/Units 05:17 PT 32.7 H (12.2-14.9) Sec. INR 3.16 H (0.87-1.13) CBC 10/19/18 Range/Units 04:00 WBC 24.1 H (4.5-11.0) K/mm3 RBC 2.67 L (3.65-5.03) M/mm3 Hgb 7.8 L (11.8-15.2) gm/dl Hct 23.3 L (35.5-45.6) % Plt Count 305 (140-440) K/mm3 Comprehensive Metabolic Panel 10/19/18 Range/Units 04:00 Sodium 140 (137-145) mmol/L Potassium 3.5 L (3.6-5.0) mmol/L Chloride 110.9 H (98-107) mmol/L Carbon Dioxide 21 L (22-30) mmol/L BUN 12 (9-20) mg/dL Creatinine 1.4 (0.8-1.5) mg/dL Glucose 113 H (75-100) mg/dL Calcium 6.8 L (8.4-10.2) mg/dL - Imaging and Cardiology EKG: image reviewed Echo: report reviewed (EF 60-65%, mild TR. ) - EKG Sinus rhythms and dysrhythmias: sinus tachycardia - Allied health notes Allied health notes reviewed: nursing
--- NOTE | 2018-10-19 14:40 | Progress Note ---
Assessment and Plan Impression: * Acute kidney secondary to ATN * Sepsis - ?urinary source --Blood cx - NGTD --Urine cx - greater than 2 organisms * Metabolic acidosis secondary to lactic acidosis * UTI * Hypokalemia * hypomagnesemia * Anemia Plan: * Renal function is stable * replete mag prn * restart k with Bicarb gtt, increase bicarb administration * added po sodium bicarb * co2 is better today * Replete K prn - note orders * Abx per primary team * Transfusion per primary team - pRBC transfusion in progress * Replete lytes prn * Dose medications for renal function * Avoid potential nephrotoxins Subjective Date of service: 10/19/18 Principal diagnosis: Acute Toxic metabolic encephalopathy; Septic Shock; Severe Sepsis; DKA Interval history: resting well in bed today Objective - Exam Narrative Exam: General appearance: chronically ill EENT: other (poor dentition) Respiratory: Present: Clear to Ascultation Cardiology: regular, tachycardia Gastrointestinal: other (ostomy) Integumentary: no rash Psychiatric: cooperative - Vital Signs Vital signs: Vital Signs - 12hr 10/19/18 10/19/18 10/19/18 02:41 02:51 03:00 Temperature Pulse Rate 91 H 90 91 H Pulse Rate [ Anterior Bilateral Throughout] Pulse Rate [ Apical] Pulse Rate [ From Monitor] Respiratory 39 H 35 H 33 H Rate Respiratory Rate [Anterior Bilateral Throughout] Blood Pressure 101/57 106/65 105/63 O2 Sat by Pulse 97 95 95 Oximetry 10/19/18 10/19/18 10/19/18 03:11 03:21 03:30 Temperature Pulse Rate 90 90 90 Pulse Rate [ Anterior Bilateral Throughout] Pulse Rate [ Apical] Pulse Rate [ From Monitor] Respiratory 34 H 36 H 36 H Rate Respiratory Rate [Anterior Bilateral Throughout] Blood Pressure 105/63 105/63 101/59 O2 Sat by Pulse 95 94 93 Oximetry 10/19/18 10/19/18 10/19/18 03:41 03:51 04:00 Temperature 98.8 F Pulse Rate 91 H 92 H 89 Pulse Rate [ Anterior Bilateral Throughout] Pulse Rate [ Apical] Pulse Rate [ From Monitor] Respiratory 37 H 41 H 40 H Rate Respiratory Rate [Anterior Bilateral Throughout] Blood Pressure 101/59 101/59 95/57 O2 Sat by Pulse 94 94 97 Oximetry 10/19/18 10/19/18 10/19/18 04:11 04:21 04:30 Temperature Pulse Rate 90 89 90 Pulse Rate [ Anterior Bilateral Throughout] Pulse Rate [ Apical] Pulse Rate [ From Monitor] Respiratory 33 H 37 H 36 H Rate Respiratory Rate [Anterior Bilateral Throughout] Blood Pressure 95/57 95/57 105/61 O2 Sat by Pulse 94 94 95 Oximetry 10/19/18 10/19/18 10/19/18 04:41 04:43 04:51 Temperature Pulse Rate 89 91 H Pulse Rate [ Anterior Bilateral Throughout] Pulse Rate [ Apical] Pulse Rate [ From Monitor] Respiratory 25 H 21 29 H Rate Respiratory Rate [Anterior Bilateral Throughout] Blood Pressure 105/61 105/61 O2 Sat by Pulse 89 97 Oximetry 10/19/18 10/19/18 10/19/18 05:00 05:11 05:21 Temperature Pulse Rate 90 95 H 90 Pulse Rate [ Anterior Bilateral Throughout] Pulse Rate [ Apical] Pulse Rate [ From Monitor] Respiratory 35 H 27 H 32 H Rate Respiratory Rate [Anterior Bilateral Throughout] Blood Pressure 108/67 108/67 108/67 O2 Sat by Pulse 96 97 95 Oximetry 10/19/18 10/19/18 10/19/18 05:25 05:30 05:41 Temperature Pulse Rate 89 90 90 Pulse Rate [ Anterior Bilateral Throughout] Pulse Rate [ Apical] Pulse Rate [ From Monitor] Respiratory 22 32 H Rate Respiratory Rate [Anterior Bilateral Throughout] Blood Pressure 108/67 101/59 101/59 O2 Sat by Pulse 96 95 Oximetry 10/19/18 10/19/18 10/19/18 05:51 06:00 06:11 Temperature Pulse Rate 87 87 89 Pulse Rate [ Anterior Bilateral Throughout] Pulse Rate [ Apical] Pulse Rate [ From Monitor] Respiratory 31 H 32 H 32 H Rate Respiratory Rate [Anterior Bilateral Throughout] Blood Pressure 101/59 93/57 93/57 O2 Sat by Pulse 95 94 95 Oximetry 10/19/18 10/19/18 10/19/18 06:21 06:30 06:41 Temperature Pulse Rate 86 87 87 Pulse Rate [ Anterior Bilateral Throughout] Pulse Rate [ Apical] Pulse Rate [ From Monitor] Respiratory 32 H 32 H 33 H Rate Respiratory Rate [Anterior Bilateral Throughout] Blood Pressure 93/57 85/61 93/58 O2 Sat by Pulse 95 95 95 Oximetry 10/19/18 10/19/18 10/19/18 06:51 07:00 07:11 Temperature Pulse Rate 87 85 85 Pulse Rate [ Anterior Bilateral Throughout] Pulse Rate [ Apical] Pulse Rate [ From Monitor] Respiratory 25 H 32 H 31 H Rate Respiratory Rate [Anterior Bilateral Throughout] Blood Pressure 93/58 95/59 95/59 O2 Sat by Pulse 95 98 Oximetry 10/19/18 10/19/18 10/19/18 07:21 07:30 07:41 Temperature Pulse Rate 86 86 88 Pulse Rate [ Anterior Bilateral Throughout] Pulse Rate [ Apical] Pulse Rate [ From Monitor] Respiratory 29 H 34 H 31 H Rate Respiratory Rate [Anterior Bilateral Throughout] Blood Pressure 93/58 101/64 101/64 O2 Sat by Pulse 96 95 95 Oximetry 10/19/18 10/19/18 10/19/18 07:51 08:00 08:11 Temperature 96.8 F L Pulse Rate 87 88 84 Pulse Rate [ Anterior Bilateral Throughout] Pulse Rate [ 84 Apical] Pulse Rate [ 84 From Monitor] Respiratory 30 H 25 H 32 H Rate Respiratory Rate [Anterior Bilateral Throughout] Blood Pressure 101/64 99/70 99/70 O2 Sat by Pulse 95 97 96 Oximetry 10/19/18 10/19/18 10/19/18 08:19 08:21 08:30 Temperature 97.9 F Pulse Rate 85 84 Pulse Rate [ Anterior Bilateral Throughout] Pulse Rate [ Apical] Pulse Rate [ From Monitor] Respiratory 45 H 41 H Rate Respiratory Rate [Anterior Bilateral Throughout] Blood Pressure 99/70 104/71 O2 Sat by Pulse 92 96 Oximetry 10/19/18 10/19/18 10/19/18 08:41 08:51 08:59 Temperature Pulse Rate 83 85 Pulse Rate [ 87 Anterior Bilateral Throughout] Pulse Rate [ Apical] Pulse Rate [ From Monitor] Respiratory 39 H 46 H Rate Respiratory 20 Rate [Anterior Bilateral Throughout] Blood Pressure 104/71 104/71 O2 Sat by Pulse 96 95 Oximetry 10/19/18 10/19/18 10/19/18 09:01 09:11 09:15 Temperature Pulse Rate 85 86 Pulse Rate [ 85 Anterior Bilateral Throughout] Pulse Rate [ Apical] Pulse Rate [ From Monitor] Respiratory 18 39 H Rate Respiratory 20 Rate [Anterior Bilateral Throughout] Blood Pressure 104/67 104/67 O2 Sat by Pulse 96 96 Oximetry 10/19/18 10/19/18 10/19/18 09:21 09:30 09:41 Temperature Pulse Rate 89 86 88 Pulse Rate [ Anterior Bilateral Throughout] Pulse Rate [ Apical] Pulse Rate [ From Monitor] Respiratory 26 H 41 H 47 H Rate Respiratory Rate [Anterior Bilateral Throughout] Blood Pressure 104/67 110/72 110/72 O2 Sat by Pulse 95 94 94 Oximetry 10/19/18 10/19/18 10/19/18 09:51 10:00 10:11 Temperature Pulse Rate 89 83 89 Pulse Rate [ Anterior Bilateral Throughout] Pulse Rate [ Apical] Pulse Rate [ From Monitor] Respiratory 39 H 44 H 40 H Rate Respiratory Rate [Anterior Bilateral Throughout] Blood Pressure 110/72 99/64 99/64 O2 Sat by Pulse 93 95 94 Oximetry 10/19/18 10/19/18 10/19/18 10:21 10:31 10:41 Temperature Pulse Rate 91 H 92 H 88 Pulse Rate [ Anterior Bilateral Throughout] Pulse Rate [ Apical] Pulse Rate [ From Monitor] Respiratory 22 46 H 18 Rate Respiratory Rate [Anterior Bilateral Throughout] Blood Pressure 99/64 115/64 115/64 O2 Sat by Pulse 94 91 88 Oximetry 10/19/18 10/19/18 10/19/18 10:51 11:00 11:11 Temperature Pulse Rate 86 86 86 Pulse Rate [ Anterior Bilateral Throughout] Pulse Rate [ Apical] Pulse Rate [ From Monitor] Respiratory 22 21 14 Rate Respiratory Rate [Anterior Bilateral Throughout] Blood Pressure 115/64 109/67 109/67 O2 Sat by Pulse 86 87 85 Oximetry 10/19/18 10/19/18 10/19/18 11:21 11:30 11:41 Temperature Pulse Rate 84 86 86 Pulse Rate [ Anterior Bilateral Throughout] Pulse Rate [ Apical] Pulse Rate [ From Monitor] Respiratory 28 H 30 H 37 H Rate Respiratory Rate [Anterior Bilateral Throughout] Blood Pressure 109/67 108/68 108/68 O2 Sat by Pulse 85 91 94 Oximetry 10/19/18 10/19/18 10/19/18 11:51 12:00 12:11 Temperature 98 F Pulse Rate 84 85 83 Pulse Rate [ Anterior Bilateral Throughout] Pulse Rate [ 85 Apical] Pulse Rate [ 85 From Monitor] Respiratory 37 H 33 H 28 H Rate Respiratory Rate [Anterior Bilateral Throughout] Blood Pressure 108/68 107/69 107/69 O2 Sat by Pulse 96 97 95 Oximetry 10/19/18 10/19/18 10/19/18 12:21 12:29 12:30 Temperature Pulse Rate 84 91 H 90 Pulse Rate [ Anterior Bilateral Throughout] Pulse Rate [ Apical] Pulse Rate [ From Monitor] Respiratory 33 H 26 H Rate Respiratory Rate [Anterior Bilateral Throughout] Blood Pressure 107/69 107/69 108/73 O2 Sat by Pulse 93 94 Oximetry 10/19/18 10/19/18 10/19/18 12:31 12:41 12:51 Temperature 98.0 F Pulse Rate 85 84 Pulse Rate [ Anterior Bilateral Throughout] Pulse Rate [ Apical] Pulse Rate [ From Monitor] Respiratory 29 H 46 H Rate Respiratory Rate [Anterior Bilateral Throughout] Blood Pressure 108/73 108/73 O2 Sat by Pulse 95 96 Oximetry 10/19/18 10/19/18 10/19/18 13:00 13:11 13:14 Temperature Pulse Rate 84 86 Pulse Rate [ 86 Anterior Bilateral Throughout] Pulse Rate [ Apical] Pulse Rate [ From Monitor] Respiratory 41 H 40 H Rate Respiratory 20 Rate [Anterior Bilateral Throughout] Blood Pressure 112/73 112/73 O2 Sat by Pulse 98 98 Oximetry 10/19/18 10/19/18 10/19/18 13:21 13:28 13:30 Temperature Pulse Rate 86 89 Pulse Rate [ 86 Anterior Bilateral Throughout] Pulse Rate [ Apical] Pulse Rate [ From Monitor] Respiratory 36 H 28 H Rate Respiratory 20 Rate [Anterior Bilateral Throughout] Blood Pressure 112/73 108/70 O2 Sat by Pulse 96 97 Oximetry 10/19/18 10/19/18 10/19/18 13:41 13:51 14:00 Temperature Pulse Rate 89 90 87 Pulse Rate [ Anterior Bilateral Throughout] Pulse Rate [ Apical] Pulse Rate [ From Monitor] Respiratory 36 H 29 H 33 H Rate Respiratory Rate [Anterior Bilateral Throughout] Blood Pressure 108/70 108/70 110/66 O2 Sat by Pulse 96 96 94 Oximetry 10/19/18 14:11 Temperature Pulse Rate 96 H Pulse Rate [ Anterior Bilateral Throughout] Pulse Rate [ Apical] Pulse Rate [ From Monitor] Respiratory 25 H Rate Respiratory Rate [Anterior Bilateral Throughout] Blood Pressure 110/66 O2 Sat by Pulse 95 Oximetry - Lab 10/19/18 04:00 10/19/18 04:00 Most recent lab results Calcium 6.8 mg/dL (8.4-10.2) L 10/19/18 04:00 Phosphorus 4.80 mg/dL (2.5-4.5) H 10/11/18 06:51 Magnesium 1.20 mg/dL (1.7-2.3) L 10/18/18 04:39 Medications & Allergies - Medications Allergies/Adverse Reactions: Allergies No Known Allergies Allergy (Unverified 10/11/18 05:00) Home Medications: Home Medications Medication Instructions Recorded Confirmed Last Taken Type Acetaminophen [Acetaminophen ER] 650 mg PO Q6H PRN 10/11/18 10/11/18 Unknown History Allopurinol 300 mg PO QDAY 10/11/18 10/11/18 Unknown History Amlodipine Besylate [Norvasc] 5 mg PO DAILY 10/11/18 10/11/18 Unknown History Atorvastatin [Lipitor Tab] 80 mg PO QHS 10/11/18 10/11/18 Unknown History Calcium Carbonate [Calcium Antacid] 200 mg PO TID 10/11/18 10/11/18 Unknown History Collagenase Clostridium Hist. 1 applic TP BID 10/11/18 10/11/18 Unknown History [Santyl] Collagenase Clostridium Hist. 1 applic TP QPM 10/11/18 10/11/18 Unknown History [Santyl] HYDROcodone/APAP 7.5-325 [[place] 1 each PO Q4HR PRN 10/11/18 10/11/18 Unknown History 7.5/325] Metformin HCl [Glucophage] 500 mg PO BID 10/11/18 10/11/18 Unknown History Mirtazapine [Remeron] 15 mg PO HS 10/11/18 10/11/18 Unknown History Sulfamethoxazole/Trimethoprim 1 each PO BID 10/11/18 10/11/18 Unknown History [Bactrim DS TAB] Active Medications: Generic Name Dose Route Start Last Admin Trade Name Freq PRN Reason Stop Dose Admin Acetaminophen 650 mg 10/12/18 06:45 Tylenol PO Q4H PRN Pain, Mild (1-3) Albuterol 2.5 mg 10/11/18 08:21 Proventil IH Q3HRT PRN Shortness Of Breath Albuterol/Ipratropium 1 ampul 10/11/18 14:00 10/19/18 13:14 Duoneb *Not For Prn Use* IH 1 ampul Q6HRT FRANCIS[place] Administration Amiodarone HCl 200 mg 10/18/18 22:00 10/19/18 10:15 Cordarone PO 200 mg BID FRANCISCO Administration Dextrose 0 ml 10/11/18 06:14 10/12/18 01:48 D50w (25gm) Syringe IV 20 ml ONCE PRN Administration Hypoglycemia Diltiazem HCl 30 mg 10/13/18 18:00 10/19/18 12:29 Cardizem PO 30 mg Q6HR FRANCISCO Administration Norepinephrine 4 mg in 250 mls @ 7.5 mls/hr 10/15/18 17:00 10/18/18 18:14 Levophed Drip 4 Mg/Ns 250 Ml IV 0 mcg/min TITR FRANCISCO 0 mls/hr Titration Protocol 2 MCG/MIN Sodium Bicarbonate 150 meq/ 1,160 mls @ 75 mls/hr 10/16/18 12:30 10/19/18 12:23 Potassium Chloride 20 meq/ IV 75 mls/hr Dextrose DIRECT FRANCISCO Administration Ceftriaxone Sodium 2 gm in 100 mls @ 200 mls/hr 10/17/18 10:00 10/19/18 10:16 Rocephin/Ns 2 Gm/100 Ml IV 200 mls/hr Q24HR FRANCISCO Administration Vancomycin HCl 1,500 mg/ 530 mls @ 333.333 mls/hr 10/20/18 10:00 Sodium Chloride IV Q24HR [facility] Insulin Glargine 20 units 10/13/18 22:00 10/18/18 21:46 Lantus SUB-Q 20 units QHS FRANCISCO Administration Insulin Human Lispro 0 unit 10/12/18 09:00 10/19/18 12:28 Humalog SUB-Q Not Given Q6HR [facility] Protocol Metronidazole 500 mg 10/17/18 14:00 10/19/18 05:26 Flagyl PO 500 mg Q8HR [place] Administration Morphine Sulfate 4 mg 10/12/18 22:30 10/16/18 02:10 Morphine IV 4 mg Q4H PRN Administration Pain , Severe (7-10) Ondansetron HCl 4 mg 10/11/18 09:30 Zofran IV Q8H PRN Nausea And Vomiting Pantoprazole Sodium 40 mg 10/14/18 10:00 10/19/18 10:15 Protonix PO 40 mg QDAY FR[facility]IS[place] Administration Potassium Chloride 40 meq 10/19/18 16:00 Potassium Chloride FEEDTUBE 10/19/18 16:01 ONCE ONE Sodium Bicarbonate 1,300 mg 10/15/18 13:00 10/19/18 10:16 Sodium Bicarbonate PO 1,300 mg BID FR[facility]ISCO Administration Sodium Chloride 10 ml 10/11/18 10:00 10/19/18 10:18 Sodium Chloride Flush Syringe 10 Ml IV 10 ml BID [facility]IS[place] Administration Sodium Chloride 10 ml 10/11/18 09:00 Sodium Chloride Flush Syringe 10 Ml IV PRN PRN LINE FLUSH
--- NOTE | 2018-10-19 15:56 | Progress Note ---
Assessment and Plan Cultures: 10/11/2018 blood culture: Beta Strep group C 2 of 4 bottles 10/11/2018 urine culture: mixed growth 10/13/2018 blood culture no growth 10/18/2018 blood culture no growth today 10/18/2018 urine culture: no growth A/P: 58-year-old male with diabetes mellitus, recent admission in August 2018 for an anal abscess, colostomy was sent to the emergency room from an SNF earlier this morning after he was noted to have a fever with shaking chills. Admitted with: #1 Severe sepsis with septic shock: fever and shock resolved, off levophed, leukocytosis better 28 -- > 24K. Source could be either Strep bacteremia +/- infected and necrotic sacral wound +/- UTI. New Shock ? septic or cardiogenic. resolved - CT abd showed ?chronic colitis, small bilateral pleural effusions, ileus, anasarca, bilateral renal calculi. - Repeat UA, urine culture and blood culture negative. CXR 10/15 better. #2 Strep group C bacteremia: likely source infected and necrotic sacral wound. 10/11/2018 blood culture Beta Strep group C 2 of 4 bottles. Repeat blood culture 10/13 no growth. TTE no vegetation #3 Catheter associated urinary tract infection: POA. UA showing significant pyuria. Suarez exchanged. Urine culture grew 10-100K mixed growth #4 Sacral decubitus ulcer, infected, stage 4: recent anal abscess status post debridement at [facility] in August 2018. Per surgery does not believe source of bacteremia is the infected decubitus. No bone exposed on exam. CRP=6.8. #5 Acute kidney injury/acute renal failure: Present on admission. resolved #6 Elevated troponins: Cardiology on board. #7 Acute encephalopathy: probably from sepsis. resolved #8 Acute anemia: GI consulted. Recs: f/u repeat blood culture, procal Monitor leukocytosis continue vancomycin for now D2, will stop soon continue ceftriaxone 2 g IV qday and flagyl 500 m PO TID for 3 weeks until 11/03/2018 to cover Strep bacteremia and sacral wound infection continue off loading Will follow MD [facility] C: [phone] O: [phone] F: [phone] Subjective Date of service: 10/19/18 Principal diagnosis: Acute Toxic metabolic encephalopathy; Septic Shock; Severe Sepsis; DKA Interval history: Patient is alert, talking, no fever . Off levophed since yesterday. No fever. ROS: no fever, no chills, denies N/V/D, rash Objective - Exam Narrative Exam: Constitutional: Alert, cooperative. No acute distress on NC O2 Head, Ears, Nose: Normocephalic, atraumatic. External ears, nose normal Eyes: Conjunctivae/corneas clear. No icterus. No ptosis. Neck: Supple, no meningeal signs Oral: dentition poor, no thrush Cardiovascular: RRR Respiratory: Good air entry, clear to auscultation bilaterally GI: Soft, bowel sounds normal. +ostomy bag. +suarez Musculoskeletal: +bilateral leg edema. Large sacral wound with wound VAC Skin: No rash. Hem/Lymphatic: No palpable cervical or supraclavicular nodes. No lymphangitis Psych: Mood ok. Neurological: Awake, alert, but not oriented. R IJ - Constitutional Vitals: Vital Signs Temp Pulse Resp BP Pulse Ox 98.0 F 96 H 25 H 110/66 95 10/19/18 12:31 10/19/18 14:11 10/19/18 14:11 10/19/18 14:11 10/19/18 14:11 Temperature -Last 24 Hours Temperature 98.0 F Temperature 98 F Temperature 97.9 F Temperature 96.8 F Temperature 98.8 F Temperature 98.9 F Temperature 99.2 F Temperature 97.9 F - Labs CBC & Chem 7: 10/19/18 04:00 10/19/18 04:00 Labs: Abnormal lab results 10/18/18 10/18/18 10/18/18 Range/Units 16:32 16:35 23:45 WBC (4.5-11.0) K/mm3 RBC (3.65-5.03) M/mm3 Hgb (11.8-15.2) gm/dl Hct (35.5-45.6) % RDW (13.2-15.2) % Seg Neuts % (Manual) (40.0-70.0) % Seg Neutrophils # Man (1.8-7.7) K/mm3 Monocytes # (Manual) (0.0-0.8) K/mm3 Eosinophils # (Manual) (0.0-0.4) K/mm3 PT (12.2-14.9) Sec. INR (0.87-1.13) Potassium (3.6-5.0) mmol/L Chloride (98-107) mmol/L Carbon Dioxide (22-30) mmol/L Glucose (75-100) mg/dL POC Glucose 118 H 147 H (70-105) Calcium (8.4-10.2) mg/dL Urine WBC (Auto) 22.0 H (0.0-6.0) /HPF 10/19/18 10/19/18 10/19/18 Range/Units 04:00 04:00 05:16 WBC 24.1 H (4.5-11.0) K/mm3 RBC 2.67 L (3.65-5.03) M/mm3 Hgb 7.8 L (11.8-15.2) gm/dl Hct 23.3 L (35.5-45.6) % RDW 17.0 H (13.2-15.2) % Seg Neuts % (Manual) 73.0 H (40.0-70.0) % Seg Neutrophils # Man 17.6 H (1.8-7.7) K/mm3 Monocytes # (Manual) 1.4 H (0.0-0.8) K/mm3 Eosinophils # (Manual) 0.7 H (0.0-0.4) K/mm3 PT (12.2-14.9) Sec. INR (0.87-1.13) Potassium 3.5 L (3.6-5.0) mmol/L Chloride 110.9 H (98-107) mmol/L Carbon Dioxide 21 L (22-30) mmol/L Glucose 113 H (75-100) mg/dL POC Glucose 117 H (70-105) Calcium 6.8 L (8.4-10.2) mg/dL Urine WBC (Auto) (0.0-6.0) /HPF 10/19/18 10/19/18 Range/Units 05:17 12:19 WBC (4.5-11.0) K/mm3 RBC (3.65-5.03) M/mm3 Hgb (11.8-15.2) gm/dl Hct (35.5-45.6) % RDW (13.2-15.2) % Seg Neuts % (Manual) (40.0-70.0) % Seg Neutrophils # Man (1.8-7.7) K/mm3 Monocytes # (Manual) (0.0-0.8) K/mm3 Eosinophils # (Manual) (0.0-0.4) K/mm3 PT 32.7 H (12.2-14.9) Sec. INR 3.16 H (0.87-1.13) Potassium (3.6-5.0) mmol/L Chloride (98-107) mmol/L Carbon Dioxide (22-30) mmol/L Glucose (75-100) mg/dL POC Glucose 136 H (70-105) Calcium (8.4-10.2) mg/dL Urine WBC (Auto) (0.0-6.0) /HPF
[2018-10-19] MEDS ORDERED: POTASSIUM CHLORIDE FEEDTUBE ONE (16:00)
--- NOTE | 2018-10-19 16:51 | Progress Note ---
Assessment and Plan Assessment and plan: Dinora is a 58 year old male presenting from OR ([facility]) Pt is a very poor historian, per medical records he has history of paroxysmal atrial fibrillation, hypertension, diabetes, Colosotomy and lack of coordination with Muscle weakness anal abscess with recent debridement in Aug 2018, chronic indwelling suarez who was referred to the ER from his shelter for evaluation of fever and low blood pressure and altered mental status. In the ER he was found to have urosepsis, acute renal failure and DKA with elevated troponin. Patient was unable to provided any information due to incoherence of his thoughts he complained of dry mouth per the ED Physician. He denies any chest pain, palpitations or shortness of breath. A report from the OR revealed that he was noted this morning to be confused with shivering. Labs done the day prior to admission revealed a wbc of 31.4 per the staff. The patient in the ED was started on sepsis protocol and also pressers labs from shelter done 10/10/17: wbc 31.4, hgb 9.1, plt 271 Source ?chronic colitis, small bilateral pleural effusions, ileus, anasarca, bilateral renal calculi. Acute Toxic metabolic encephalopathy Septic Shock Severe Sepsis Hyperosmolar NonKetotic Hyperglycemia Uncontrolled DM MALCOLM secondary to vasomotor nephropathy Severe acute blood loss anemia on anemia of chronic disease Metabolic acidosis Colostomy Unstagable scaral pressure ulcer POA Afib with RVR Troponemia- Type 2 NSTEMI Hypokalemia Severe Protein calorie malnutrition Plan Continue supportive care. Patient was placed on pressors transiently and currently off pressors Cont long acting insulin Discontinued Heparin drip in the setting of severe anemia- will start warfarin and monitor INR considering GI finding repeat chest xray TTE without any vegetation noted Renal function improvement noted Hgb improved following 3 units PRBC GI input noted. No high risk bleed risk noted. Transfuse PRBC as needed Cardiology, drawer fitter, ID, SURGICAL, nephrology input noted Sepsis protocol ET consult NOTED Wean pressors as tolerated PICC team for Access and D/C Right femoral Line. Replace electrolytes Fall precautions DVT/GI prophy Plan discussed with patient and also with Cardiology Patient had tachycardia and was given Cardizem and discussed with the nurse to start him back on pressors if blood pressure is dropping. The plan was to transfer to [facility] and recommended to stay in the ICU. He needs close monitoring. The high probability of a clinically significant, sudden or life threatening deterioration of the [VASCULAR, INTEGUMENTARY] system(s) required my full and direct attention, intervention and personal management. The aggregate critical care time was [35] minutes. This time is in addition to time spent performing reported procedures but includes the following: [X] Data Review and interpretation [X] Patient assessment and monitoring of vital signs [X] Documentation [X] Medication orders and management History Interval history: Patient was seen and evaluated this morning, patient was alert and oriented. Patient said he is feeling weak and said his BP is stable. Hospitalist Physical - Physical exam Narrative exam: Not in cardiopulmonary distress. The patient appeared well nourished and normally developed. Vital signs as documented. Head exam is unremarkable. No scleral icterus . Neck is without jugular venous distension, thyromegaly, or carotid bruits. Lungs are clear to auscultation. Cardiac exam reveals regular rate and Rhythm. First and second heart sounds normal. No murmurs, rubs or gallops. Abdominal exam reveals normal bowel sounds, no masses, no organomegaly and no aortic enlargement. Extremities are nonedematous and both femoral and pedal pulses are normal. BARGEMAN: Alert and oriented 3. No focal weakness. - Constitutional Vitals: Temp Pulse Resp BP Pulse Ox 98.7 F 109 H 19 88/61 98 10/19/18 16:00 10/19/18 16:11 10/19/18 16:11 10/19/18 16:11 10/19/18 16:11 General appearance: Present: mild distress, disheveled Results - Labs CBC & Chem 7: 10/19/18 04:00 10/19/18 04:00 Labs: Laboratory Last Values WBC 24.1 K/mm3 (4.5-11.0) H 10/19/18 04:00 RBC 2.67 M/mm3 (3.65-5.03) L 10/19/18 04:00 Hgb 7.8 gm/dl (11.8-15.2) L 10/19/18 04:00 Hct 23.3 % (35.5-45.6) L 10/19/18 04:00 MCV 87 fl (84-94) 10/19/18 04:00 MCH 29 pg (28-32) 10/19/18 04:00 MCHC 34 % (32-34) 10/19/18 04:00 RDW 17.0 % (13.2-15.2) H 10/19/18 04:00 Plt Count 305 K/mm3 (140-440) 10/19/18 04:00 Add Manual Diff Complete 10/19/18 04:00 Total Counted 100 10/19/18 04:00 Seg Neutrophils % Customer Service Representative Teacher 10/15/18 11:21 Seg Neuts % (Manual) 73.0 % (40.0-70.0) H 10/19/18 04:00 Band Neutrophils % 2.0 % 10/19/18 04:00 Lymphocytes % (Manual) 15.0 % (13.4-35.0) 10/19/18 04:00 Reactive Lymphs % (Man) 0 % 10/19/18 04:00 Monocytes % (Manual) 6.0 % (0.0-7.3) 10/19/18 04:00 Eosinophils % (Manual) 3.0 % (0.0-4.3) 10/19/18 04:00 Basophils % (Manual) 0 % (0.0-1.8) 10/19/18 04:00 Metamyelocytes % 1.0 % 10/19/18 04:00 Myelocytes % 0 % 10/19/18 04:00 Promyelocytes % 0 % 10/19/18 04:00 Blast Cells % 0 % 10/19/18 04:00 Nucleated RBC % Not Reportable 10/19/18 04:00 Seg Neutrophils # Man 17.6 K/mm3 (1.8-7.7) H 10/19/18 04:00 Band Neutrophils # 0.5 K/mm3 10/19/18 04:00 Lymphocytes # (Manual) 3.6 K/mm3 (1.2-5.4) 10/19/18 04:00 Abs React Lymphs (Man) 0.0 K/mm3 10/19/18 04:00 Monocytes # (Manual) 1.4 K/mm3 (0.0-0.8) H 10/19/18 04:00 Eosinophils # (Manual) 0.7 K/mm3 (0.0-0.4) H 10/19/18 04:00 Basophils # (Manual) 0.0 K/mm3 (0.0-0.1) 10/19/18 04:00 Metamyelocytes # 0.2 K/mm3 10/19/18 04:00 Myelocytes # 0.0 K/mm3 10/19/18 04:00 Promyelocytes # 0.0 K/mm3 10/19/18 04:00 Blast Cells # 0.0 K/mm3 10/19/18 04:00 WBC Morphology Not Reportable 10/19/18 04:00 Hypersegmented Neuts Not Reportable 10/19/18 04:00 Hyposegmented Neuts Not Reportable 10/19/18 04:00 Hypogranular Neuts Not Reportable 10/19/18 04:00 Smudge Cells Not Reportable 10/19/18 04:00 Toxic Granulation Not Reportable 10/19/18 04:00 Toxic Vacuolation Not Reportable 10/19/18 04:00 Dohle Bodies Not Reportable 10/19/18 04:00 Pelger-Huet Anomaly Not Reportable 10/19/18 04:00 Lisa Rods Not Reportable 10/19/18 04:00 Platelet Estimate Consistent w auto 10/19/18 04:00 Clumped Platelets Not Reportable 10/19/18 04:00 Plt Clumps, EDTA Not Reportable 10/19/18 04:00 Large Platelets Not Reportable 10/19/18 04:00 Giant Platelets Not Reportable 10/19/18 04:00 Platelet Satelliting Not Reportable 10/19/18 04:00 Plt Morphology Comment Not Reportable 10/19/18 04:00 RBC Morphology Not Reportable 10/19/18 04:00 Dimorphic RBCs Not Reportable 10/19/18 04:00 Polychromasia Few 10/19/18 04:00 Hypochromasia Few 10/19/18 04:00 Poikilocytosis Few 10/19/18 04:00 Anisocytosis 1+ 10/19/18 04:00 Microcytosis Not Reportable 10/19/18 04:00 Macrocytosis Not Reportable 10/19/18 04:00 Spherocytes Not Reportable 10/19/18 04:00 Pappenheimer Bodies Not Reportable 10/19/18 04:00 Sickle Cells Not Reportable 10/19/18 04:00 Target Cells Not Reportable 10/19/18 04:00 Tear Drop Cells Rare 10/19/18 04:00 Ovalocytes Few 10/19/18 04:00 Helmet Cells Not Reportable 10/19/18 04:00 Brown-Kincora Bodies Not Reportable 10/19/18 04:00 [place] Rings Not Reportable 10/19/18 04:00 Mcintyre Cells Not Reportable 10/19/18 04:00 Bite Cells Not Reportable 10/19/18 04:00 Crenated Cell Not Reportable 10/19/18 04:00 Elliptocytes Not Reportable 10/19/18 04:00 Acanthocytes (Spur) Not Reportable 10/19/18 04:00 Rouleaux Not Reportable 10/19/18 04:00 Hemoglobin C Crystals Not Reportable 10/19/18 04:00 Schistocytes Not Reportable 10/19/18 04:00 Malaria parasites Not Reportable 10/19/18 04:00 [place] Bodies Not Reportable 10/19/18 04:00 Hem Pathologist Commnt No 10/19/18 04:00 PT 32.7 Sec. (12.2-14.9) H 10/19/18 05:17 INR 3.16 (0.87-1.13) H 10/19/18 05:17 POC ABG pH 7.380 (7.35-7.45) 10/11/18 17:53 POC ABG pCO2 28.2 (35-45) L 10/11/18 17:53 POC ABG pO2 60 (80-105) L 10/11/18 17:53 POC ABG HCO3 16.7 10/11/18 17:53 POC ABG Total CO2 18 10/11/18 17:53 POC ABG O2 Sat 91 10/11/18 17:53 POC ABG Base Excess -8 10/11/18 17:53 VBG pH 7.226 (7.320-7.420) L 10/11/18 05:21 FiO2 2 % 10/11/18 17:53 Sodium 140 mmol/L (137-145) 10/19/18 04:00 Potassium 3.5 mmol/L (3.6-5.0) L 10/19/18 04:00 Chloride 110.9 mmol/L (98-107) H 10/19/18 04:00 Carbon Dioxide 21 mmol/L (22-30) L 10/19/18 04:00 Anion Gap 12 mmol/L 10/19/18 04:00 BUN 12 mg/dL (9-20) 10/19/18 04:00 Creatinine 1.4 mg/dL (0.8-1.5) 10/19/18 04:00 Estimated GFR > 60 ml/min 10/19/18 04:00 BUN/Creatinine Ratio 9 % 10/19/18 04:00 Glucose 113 mg/dL (75-100) H 10/19/18 04:00 POC Glucose 136 (70-105) H 10/19/18 12:19 Lactic Acid 1.50 mmol/L (0.7-2.0) 10/12/18 04:20 Calcium 6.8 mg/dL (8.4-10.2) L 10/19/18 04:00 Phosphorus 4.80 mg/dL (2.5-4.5) H 10/11/18 06:51 Magnesium 1.20 mg/dL (1.7-2.3) L 10/18/18 04:39 Total Bilirubin 0.50 mg/dL (0.1-1.2) 10/17/18 04:52 AST 36 units/L (5-40) 10/17/18 04:52 ALT 10 units/L (7-56) 10/17/18 04:52 Alkaline Phosphatase 219 units/L (35-129) H 10/17/18 04:52 Total Creatine Kinase 933 units/L (55-170) H 10/11/18 17:58 CK-MB (CK-2) 2.8 ng/mL (0.0-4.0) 10/11/18 17:58 CK-MB (CK-2) Rel Index 0.3 (0-4) 10/11/18 17:58 Troponin T 0.116 ng/mL (0.00-0.029) H* 10/11/18 05:21 C-Reactive Protein 6.80 mg/dL (0.00-1.30) H 10/18/18 13:41 Total Protein 5.5 g/dL (6.3-8.2) L 10/17/18 04:52 Albumin 1.3 g/dL (3.9-5) L 10/17/18 04:52 Albumin/Globulin Ratio 0.3 % 10/17/18 04:52 Triglycerides 120 mg/dL (2-149) 10/11/18 05:21 Cholesterol 26 mg/dL (50-199) L 10/11/18 05:21 LDL Cholesterol Direct 4 mg/dL (50-130) L 10/11/18 05:21 HDL Cholesterol 7 mg/dL (40-59) L 10/11/18 05:21 Cholesterol/HDL Ratio 3.71 % 10/11/18 05:21 Urine Color Christine (Yellow) 10/18/18 16:32 Urine Turbidity Cloudy (Clear) 10/18/18 16:32 Urine pH 6.0 (5.0-7.0) 10/18/18 16:32 Ur Specific [place] 1.017 (1.003-1.030) 10/18/18 16:32 Urine Protein 100 mg/dl mg/dL (Negative) 10/18/18 16:32 Urine Glucose (UA) Neg mg/dL (Negative) 10/18/18 16:32 Urine Ketones Tr mg/dL (Negative) 10/18/18 16:32 Urine Blood Mod (Negative) 10/18/18 16:32 Urine Nitrite Neg (Negative) 10/18/18 16:32 Urine Bilirubin Neg (Negative) 10/18/18 16:32 Urine Urobilinogen < 2.0 mg/dL (<2.0) 10/18/18 16:32 Ur Leukocyte Esterase Sm (Negative) 10/18/18 16:32 Urine WBC (Auto) 22.0 /HPF (0.0-6.0) H 10/18/18 16:32 Urine RBC (Auto) 4.0 /HPF (0.0-6.0) 10/18/18 16:32 U Epithel Cells (Auto) 1.0 /HPF (0-13.0) 10/18/18 16:32 Urine Bacteria (Auto) 1+ /HPF (Negative) 10/18/18 16:32 Urine WBC Clumps 3+ /HPF 10/11/18 Unknown Amorphous Crystals Few 10/18/18 16:32 Urine Mucus Few /HPF 10/18/18 16:32 Random Vancomycin 5.7 ug/mL (0-40.0) 10/13/18 05:30 Blood Type A POSITIVE 10/11/18 09:05 Antibody Screen Negative 10/11/18 09:05 Crossmatch See Detail 10/11/18 09:05 Nutrition/Malnutrition Assess - Dietary Evaluation Nutrition/Malnutrition Findings: Nutrition Notes Start: 10/12/18 12:55 Freq: Status: Active Protocol: Document 10/19/18 13:46 TW (Rec: 10/19/18 14:15 TW [id number]) Co-Sign 10/19/18 13:46 OL Nutrition Notes Initial or Follow up Reassessment Current Diagnosis Acute Kidney Injury Diabetes Sepsis Hypertension Other Pertinent Diagnosis Sacral pressure ulcer Current Diet Consistent CHO Labs/Tests K 3.5 Pertinent Medications Reviewed Height 6 ft Weight 96.3 kg [place] Body Weight (kg) 80.90 BMI 28.8 Subjective/Other Information F/U for intakes. Pt reports eating >75% of meals and drinking 100% of ONS. Pt willing to try Norm mixed w/ diet gingerale. Burn Absent Trauma Absent Current % PO Good (75-100%) #1 Nutrition Diagnosis Inadequate oral intake As Evidenced by Signs and Symptoms Pt reports eating 75% of meals and 100% of ONS Diagnosis Progress(for reassessment Improved documentation) Is patient on ventilator? No Is Patient Ambulatory and/or Out of Bed No REE-([facility]-confined to bed) 8692.026 Calculation Used for Recommendations [facility] Additional Notes Pro: 100-167g/day (1.2-2 g/kg BW) Fluid: 1 ml/kcal Nutrition Intervention Change Diet Order: Continue CHO consistent Add Supplement/Snack (indicate name/kcal Glucerna BID /protein ) Norm BID 190 kcal 5 g pro Provides kCal: 440 Provides Protein (gm) 20 Goal #1 PO intake of meals to meet at least 75% of nutrient needs Goal #2 Wound healing Follow-Up By: 10/24/18 Additional Comments F/U: intakes (meals/ONS)
[2018-10-19] MEDS ORDERED: CORDARONE 150 MG in D5W 97 ML IV ONE (18:30)
[2018-10-19] MEDS: LANTUS SUB-Q SCH (21:51)
[2018-10-20] MEDS: CARDIZEM PO SCH ×4 (00:09→20:06)
[2018-10-20] MEDS: HumaLOG SUB-Q SCH ×4 (00:12→20:04)
[2018-10-20 05:10] LABS: INR 3.24 (0.87-1.13)
[2018-10-20 05:23] LABS: Calcium 7.1 mg/dL (8.4-10.2)
[2018-10-20] MEDS: FLAGYL PO SCH ×3 (05:32→22:19)
[2018-10-20] MEDS: DUONEB *Not for PRN Use IH SCH ×3 (07:47→19:42)
--- NOTE | 2018-10-20 09:42 | Progress Note ---
Assessment and Plan Cultures: 10/11/2018 blood culture: Beta Strep group C 2 of 4 bottles 10/11/2018 urine culture: mixed growth 10/13/2018 blood culture no growth 10/18/2018 blood culture no growth today 10/18/2018 urine culture: no growth A/P: 58-year-old male with diabetes mellitus, recent admission in August 2018 for an anal abscess, colostomy was sent to the emergency room from an SNF earlier this morning after he was noted to have a fever with shaking chills. Admitted with: #1 Severe sepsis with septic shock: fever and shock resolved, off levophed, leukocytosis better 28 -- > 24K. Source could be either Strep bacteremia +/- infected and necrotic sacral wound +/- UTI. New Shock ? septic or cardiogenic. resolved - CT abd showed ?chronic colitis, small bilateral pleural effusions, ileus, anasarca, bilateral renal calculi. - Repeat UA, urine culture and blood culture negative. CXR 10/15 better. #2 Strep group C bacteremia: likely source infected and necrotic sacral wound. 10/11/2018 blood culture Beta Strep group C 2 of 4 bottles. Repeat blood culture 10/13 no growth. TTE no vegetation #3 Catheter associated urinary tract infection: POA. UA showing significant pyuria. Suarez exchanged. Urine culture grew 10-100K mixed growth #4 Sacral decubitus ulcer, infected, stage 4: recent anal abscess status post debridement at [facility] in August 2018. Per surgery does not believe source of bacteremia is the infected decubitus. No bone exposed on exam. CRP=6.8. #5 Acute kidney injury/acute renal failure: Present on admission. resolved #6 Elevated troponins: Cardiology on board. #7 Acute encephalopathy: probably from sepsis. resolved #8 Acute anemia: GI consulted. Recs: f/u procal monitor leukocytosis stop vancomycin for now D3 - no evidence of MRSA continue ceftriaxone 2 g IV qday and flagyl 500 m PO TID for 3 weeks until 11/03/2018 to cover Strep bacteremia and sacral wound infection. Order sent to counseling case manager. continue off loading Will follow MD Yaquelin [facility] C: [phone] O: [phone] F: [phone] Subjective Date of service: 10/20/18 Principal diagnosis: Acute Toxic metabolic encephalopathy; Septic Shock; Severe Sepsis; DKA Interval history: Patient is alert, talking, no fever . Off levophed for 2 days. No fever. ROS: no fever, no chills, denies N/V/D, rash Objective - Exam Narrative Exam: Constitutional: Alert, cooperative. No acute distress on NC O2 Head, Ears, Nose: Normocephalic, atraumatic. External ears, nose normal Eyes: Conjunctivae/corneas clear. No icterus. No ptosis. Neck: Supple, no meningeal signs Oral: dentition poor, no thrush Cardiovascular: RRR Respiratory: Good air entry, clear to auscultation bilaterally GI: Soft, bowel sounds normal. +ostomy bag. +suarez Musculoskeletal: +bilateral leg edema. Large sacral wound with wound VAC Skin: No rash. Hem/Lymphatic: No palpable cervical or supraclavicular nodes. No lymphangitis Psych: Mood ok. Neurological: Awake, alert, but not oriented. R IJ - Constitutional Vitals: Vital Signs Temp Pulse Resp BP Pulse Ox 97.8 F 88 29 H 105/69 100 10/20/18 08:00 10/20/18 08:00 10/20/18 08:00 10/20/18 08:00 10/20/18 08:00 Temperature -Last 24 Hours Temperature 97.8 F Temperature 98.2 F Temperature 98.3 F Temperature 98.3 F Temperature 98.7 F Temperature 98.0 F Temperature 98 F - Labs CBC & Chem 7: 10/19/18 04:00 10/20/18 04:14 Labs: Abnormal lab results 10/19/18 10/19/18 10/19/18 Range/Units 12:19 18:05 21:53 PT (12.2-14.9) Sec. INR (0.87-1.13) Chloride (98-107) mmol/L Carbon Dioxide (22-30) mmol/L Creatinine (0.8-1.5) mg/dL Glucose (75-100) mg/dL POC Glucose 136 H 107 H 206 H (70-105) Calcium (8.4-10.2) mg/dL Magnesium (1.7-2.3) mg/dL 10/20/18 10/20/18 10/20/18 Range/Units 00:06 04:14 04:14 PT 33.4 H (12.2-14.9) Sec. INR 3.24 H (0.87-1.13) Chloride 112.5 H (98-107) mmol/L Carbon Dioxide 19 L (22-30) mmol/L Creatinine 1.7 H (0.8-1.5) mg/dL Glucose 107 H (75-100) mg/dL POC Glucose 200 H (70-105) Calcium 7.1 L (8.4-10.2) mg/dL Magnesium 1.60 L (1.7-2.3) mg/dL 10/20/18 Range/Units 05:20 PT (12.2-14.9) Sec. INR (0.87-1.13) Chloride (98-107) mmol/L Carbon Dioxide (22-30) mmol/L Creatinine (0.8-1.5) mg/dL Glucose (75-100) mg/dL POC Glucose 107 H (70-105) Calcium (8.4-10.2) mg/dL Magnesium (1.7-2.3) mg/dL
--- NOTE | 2018-10-20 09:47 | Progress Note ---
Assessment and Plan Continue present cardiac management. Replete electrolytes PRN. Will follow peripherally over the weekend. The patient has been seen in conjunction with Dr. Hansen who agrees with the assessment and plan of care. - Patient Problems (1) Sepsis Current Visit: Yes Status: Acute (2) Hypotension Current Visit: Yes Status: Acute (3) Paroxysmal atrial fibrillation with RVR Current Visit: Yes Status: Chronic (4) UTI (urinary tract infection) Current Visit: Yes Status: Acute (5) Elevated troponin Current Visit: Yes Status: Acute (6) Acute renal failure Current Visit: Yes Status: Acute (7) Hyperglycemic hyperosmolar nonketotic coma Current Visit: Yes Status: Acute (8) Anemia Current Visit: Yes Status: Acute (9) Hypomagnesemia Current Visit: Yes Status: Acute (10) Hypokalemia Current Visit: Yes Status: Acute (11) Sacral decubitus ulcer Current Visit: Yes Status: Chronic (12) SVT (supraventricular tachycardia) Current Visit: Yes Status: Acute Subjective Date of service: 10/20/18 Principal diagnosis: Acute Toxic metabolic encephalopathy; Septic Shock; Severe Sepsis; DKA Interval history: pt resting in bed, no apparent distress, no current cardiac complaints. in SR on telemetry, no SVT overnight. Objective Last Vital Signs Temp 97.8 F 10/20/18 08:00 Pulse 88 10/20/18 08:00 Resp 29 H 10/20/18 08:00 BP 105/69 10/20/18 08:00 Pulse Ox 100 10/20/18 08:00 - Physical Examination General: No Apparent Distress HEENT: Positive: Normocephaly, Mucus Membranes Moist Neck: Positive: neck supple, trachea midline Cardiac: Positive: Reg Rate and Rhythm, S1/S2 Lungs: Positive: Decreased Breath Sounds Neuro: Positive: Other (disoriented) Abdomen: Positive: Soft Extremities: Absent: edema - Labs and Meds Coagulation 10/20/18 Range/Units 04:14 PT 33.4 H (12.2-14.9) Sec. INR 3.24 H (0.87-1.13) Comprehensive Metabolic Panel 10/20/18 Range/Units 04:14 Sodium 143 (137-145) mmol/L Potassium 3.9 (3.6-5.0) mmol/L Chloride 112.5 H (98-107) mmol/L Carbon Dioxide 19 L (22-30) mmol/L BUN 13 (9-20) mg/dL Creatinine 1.7 H (0.8-1.5) mg/dL Glucose 107 H (75-100) mg/dL Calcium 7.1 L (8.4-10.2) mg/dL - Imaging and Cardiology EKG: image reviewed Echo: report reviewed (EF 60-65%, mild TR. ) - EKG Sinus rhythms and dysrhythmias: sinus tachycardia - Allied health notes Allied health notes reviewed: nursing
[2018-10-20] MEDS: ROCEPHIN/NS 2 GM/100 ML 2 GM/100 ML BAG IV SCH (09:55)
[2018-10-20] MEDS: PROTONIX PO SCH (09:56)
[2018-10-20] MEDS: SODIUM CHLORIDE FLUSH SYRINGE 10 ML IV SCH ×2 (09:56→22:19)
[2018-10-20] MEDS: SODIUM BICARBONATE PO SCH ×2 (09:56→22:19)
[2018-10-20] MEDS: CORDARONE PO SCH ×2 (09:56→22:19)
[2018-10-20] MEDS ORDERED: MAGNESIUM SULFATE 2GM/50ML 2 GM/50 ML BAG IV ONE (10:00)
[2018-10-20] MEDS ORDERED: VANCOMYCIN 1,500 MG in NACL 0.9% 500 ML 500 ML IV SCH (10:00)
--- NOTE | 2018-10-20 11:06 | Progress Note ---
Assessment and Plan Acute Toxic metabolic encephalopathy Septic Shock Severe Sepsis DKA MALCOLM secondary to vasomotor nephropathy Metabolic acidosis Colostomy Unstagable scaral pressure ulcer POA Afib with RVR Troponemia- Type 2 NSTEMI Anemia of chronic disease Hypokalemia Severe Protein calorie malnutrition -wound care with wound vac. -may need PEG to ensure adequate nutritional support to promote wound healing -CXR - continue antibiotics per ID and de-escalate per ID recommendations - continue glycemic control with lantus insulin and SSI for target BG 140 to 180 mg/dL - TTE without vegetations - supportive transfusion to keep HgB >7g/dL - PT/OT evaluation ongoing - continue mobility protocol for pressure ulcer prophylaxis -mobility and off loading on ongoing pressure ulcer prevention -get records from previous admission at [facility] to evaluate who placed his suarez catheter -continue to hold coumadin - currently INR> 3, daily PT/INR -replace electrolytes as indicated -OK to transfer [facility], need to be monitored very closely, he is at risk of decompensating from a hemodynamic and respiratory standpoint. CONDITION: CRITICAL PROGNOSIS: GUARDED CODE STATUS: FULL CODE Subjective Date of service: 10/20/18 Principal diagnosis: Acute Toxic metabolic encephalopathy; Septic Shock; Severe Sepsis; DKA Interval history: Patient is seen today for: Acute Toxic metabolic encephalopathy; Septic Shock; Severe Sepsis; DKA; MALCOLM;moderate protein calorie malnutrition Seen and examined at bedside; 24hour events reviewed; nursing and respiratory care staff consulted; no adverse overnight events reported to me; resting peacefully in bed; reamins off norepinephrine No fevers, no vomiting, no cough or chest pain. Appetite remains poor, Objective Vital Signs - 12hr 10/19/18 10/19/18 10/19/18 23:11 23:21 23:25 Temperature Pulse Rate 100 H 98 H 98 H Pulse Rate [ Anterior Bilateral Throughout] Pulse Rate [ 96 H Apical] Pulse Rate [ 96 H From Monitor] Pulse Rate [ Left Dorsalis Pedis] Pulse Rate [ Left Radial] Pulse Rate [ Right Dorsalis Pedis] Pulse Rate [ Right Radial] Respiratory 36 H 42 H 25 H Rate Respiratory Rate [Anterior Bilateral Throughout] Respiratory 25 H Rate [Back] Respiratory 25 H Rate [Bilateral Leg] Blood Pressure 101/70 101/70 O2 Sat by Pulse 98 98 100 Oximetry 10/19/18 10/19/18 10/19/18 23:30 23:41 23:51 Temperature Pulse Rate 98 H 97 H 96 H Pulse Rate [ Anterior Bilateral Throughout] Pulse Rate [ Apical] Pulse Rate [ From Monitor] Pulse Rate [ Left Dorsalis Pedis] Pulse Rate [ Left Radial] Pulse Rate [ Right Dorsalis Pedis] Pulse Rate [ Right Radial] Respiratory 39 H 36 H 37 H Rate Respiratory Rate [Anterior Bilateral Throughout] Respiratory Rate [Back] Respiratory Rate [Bilateral Leg] Blood Pressure 96/64 96/64 101/70 O2 Sat by Pulse 98 98 Oximetry 10/19/18 10/20/18 10/20/18 23:57 00:00 00:09 Temperature Pulse Rate 97 H 96 H 96 H Pulse Rate [ Anterior Bilateral Throughout] Pulse Rate [ Apical] Pulse Rate [ From Monitor] Pulse Rate [ Left Dorsalis Pedis] Pulse Rate [ Left Radial] Pulse Rate [ Right Dorsalis Pedis] Pulse Rate [ Right Radial] Respiratory 33 H 36 H Rate Respiratory Rate [Anterior Bilateral Throughout] Respiratory Rate [Back] Respiratory Rate [Bilateral Leg] Blood Pressure 101/70 95/63 96/63 O2 Sat by Pulse 98 98 Oximetry 10/20/18 10/20/18 10/20/18 00:11 00:21 00:30 Temperature Pulse Rate 96 H 91 H 89 Pulse Rate [ Anterior Bilateral Throughout] Pulse Rate [ Apical] Pulse Rate [ From Monitor] Pulse Rate [ Left Dorsalis Pedis] Pulse Rate [ Left Radial] Pulse Rate [ Right Dorsalis Pedis] Pulse Rate [ Right Radial] Respiratory 30 H 37 H 34 H Rate Respiratory Rate [Anterior Bilateral Throughout] Respiratory Rate [Back] Respiratory Rate [Bilateral Leg] Blood Pressure 95/63 95/63 98/64 O2 Sat by Pulse 98 98 99 Oximetry 10/20/18 10/20/18 10/20/18 00:41 00:51 01:00 Temperature Pulse Rate 92 H 91 H 90 Pulse Rate [ Anterior Bilateral Throughout] Pulse Rate [ Apical] Pulse Rate [ From Monitor] Pulse Rate [ Left Dorsalis Pedis] Pulse Rate [ Left Radial] Pulse Rate [ Right Dorsalis Pedis] Pulse Rate [ Right Radial] Respiratory 35 H 34 H 40 H Rate Respiratory Rate [Anterior Bilateral Throughout] Respiratory Rate [Back] Respiratory Rate [Bilateral Leg] Blood Pressure 98/64 98/64 99/64 O2 Sat by Pulse 97 97 98 Oximetry 10/20/18 10/20/18 10/20/18 01:11 01:21 01:30 Temperature Pulse Rate 90 89 90 Pulse Rate [ Anterior Bilateral Throughout] Pulse Rate [ Apical] Pulse Rate [ From Monitor] Pulse Rate [ Left Dorsalis Pedis] Pulse Rate [ Left Radial] Pulse Rate [ Right Dorsalis Pedis] Pulse Rate [ Right Radial] Respiratory 43 H 28 H 41 H Rate Respiratory Rate [Anterior Bilateral Throughout] Respiratory Rate [Back] Respiratory Rate [Bilateral Leg] Blood Pressure 99/64 99/64 97/68 O2 Sat by Pulse 98 99 Oximetry 10/20/18 10/20/18 10/20/18 01:41 01:51 02:00 Temperature Pulse Rate 90 89 91 H Pulse Rate [ Anterior Bilateral Throughout] Pulse Rate [ Apical] Pulse Rate [ From Monitor] Pulse Rate [ Left Dorsalis Pedis] Pulse Rate [ Left Radial] Pulse Rate [ Right Dorsalis Pedis] Pulse Rate [ Right Radial] Respiratory 35 H 36 H 40 H Rate Respiratory Rate [Anterior Bilateral Throughout] Respiratory Rate [Back] Respiratory Rate [Bilateral Leg] Blood Pressure 97/68 99/64 97/68 O2 Sat by Pulse 96 95 96 Oximetry 10/20/18 10/20/18 10/20/18 02:11 02:21 02:30 Temperature Pulse Rate 88 89 93 H Pulse Rate [ Anterior Bilateral Throughout] Pulse Rate [ Apical] Pulse Rate [ From Monitor] Pulse Rate [ Left Dorsalis Pedis] Pulse Rate [ Left Radial] Pulse Rate [ Right Dorsalis Pedis] Pulse Rate [ Right Radial] Respiratory 38 H 40 H 34 H Rate Respiratory Rate [Anterior Bilateral Throughout] Respiratory Rate [Back] Respiratory Rate [Bilateral Leg] Blood Pressure 103/67 103/67 108/74 O2 Sat by Pulse 96 96 100 Oximetry 10/20/18 10/20/18 10/20/18 02:41 02:51 03:00 Temperature Pulse Rate 88 88 87 Pulse Rate [ Anterior Bilateral Throughout] Pulse Rate [ Apical] Pulse Rate [ From Monitor] Pulse Rate [ Left Dorsalis Pedis] Pulse Rate [ Left Radial] Pulse Rate [ Right Dorsalis Pedis] Pulse Rate [ Right Radial] Respiratory 26 H 28 H 33 H Rate Respiratory Rate [Anterior Bilateral Throughout] Respiratory Rate [Back] Respiratory Rate [Bilateral Leg] Blood Pressure 108/74 108/74 103/68 O2 Sat by Pulse 100 100 100 Oximetry 10/20/18 10/20/18 10/20/18 03:11 03:20 03:21 Temperature 98.2 F Pulse Rate 89 88 88 Pulse Rate [ Anterior Bilateral Throughout] Pulse Rate [ 96 H Apical] Pulse Rate [ 96 H From Monitor] Pulse Rate [ Left Dorsalis Pedis] Pulse Rate [ Left Radial] Pulse Rate [ Right Dorsalis Pedis] Pulse Rate [ Right Radial] Respiratory 28 H 25 H 28 H Rate Respiratory Rate [Anterior Bilateral Throughout] Respiratory Rate [Back] Respiratory Rate [Bilateral Leg] Blood Pressure 103/68 103/68 O2 Sat by Pulse 99 100 100 Oximetry 10/20/18 10/20/18 10/20/18 03:30 03:41 03:51 Temperature Pulse Rate 85 90 86 Pulse Rate [ Anterior Bilateral Throughout] Pulse Rate [ Apical] Pulse Rate [ From Monitor] Pulse Rate [ Left Dorsalis Pedis] Pulse Rate [ Left Radial] Pulse Rate [ Right Dorsalis Pedis] Pulse Rate [ Right Radial] Respiratory 27 H 30 H 33 H Rate Respiratory Rate [Anterior Bilateral Throughout] Respiratory Rate [Back] Respiratory Rate [Bilateral Leg] Blood Pressure 95/60 95/60 95/60 O2 Sat by Pulse 98 97 99 Oximetry 10/20/18 10/20/18 10/20/18 04:00 04:10 04:21 Temperature Pulse Rate 85 86 89 Pulse Rate [ Anterior Bilateral Throughout] Pulse Rate [ Apical] Pulse Rate [ From Monitor] Pulse Rate [ Left Dorsalis Pedis] Pulse Rate [ Left Radial] Pulse Rate [ Right Dorsalis Pedis] Pulse Rate [ Right Radial] Respiratory 27 H 31 H 28 H Rate Respiratory Rate [Anterior Bilateral Throughout] Respiratory Rate [Back] Respiratory Rate [Bilateral Leg] Blood Pressure 99/64 103/68 99/64 O2 Sat by Pulse 98 99 99 Oximetry 10/20/18 10/20/18 10/20/18 04:30 04:41 04:51 Temperature Pulse Rate 86 87 88 Pulse Rate [ Anterior Bilateral Throughout] Pulse Rate [ Apical] Pulse Rate [ From Monitor] Pulse Rate [ Left Dorsalis Pedis] Pulse Rate [ Left Radial] Pulse Rate [ Right Dorsalis Pedis] Pulse Rate [ Right Radial] Respiratory 31 H 30 H 33 H Rate Respiratory Rate [Anterior Bilateral Throughout] Respiratory Rate [Back] Respiratory Rate [Bilateral Leg] Blood Pressure 98/66 98/66 98/66 O2 Sat by Pulse 100 100 98 Oximetry 10/20/18 10/20/18 10/20/18 05:00 05:11 05:21 Temperature Pulse Rate 87 85 86 Pulse Rate [ Anterior Bilateral Throughout] Pulse Rate [ Apical] Pulse Rate [ From Monitor] Pulse Rate [ Left Dorsalis Pedis] Pulse Rate [ Left Radial] Pulse Rate [ Right Dorsalis Pedis] Pulse Rate [ Right Radial] Respiratory 34 H 16 30 H Rate Respiratory Rate [Anterior Bilateral Throughout] Respiratory Rate [Back] Respiratory Rate [Bilateral Leg] Blood Pressure 96/64 96/64 96/64 O2 Sat by Pulse 99 100 100 Oximetry 10/20/18 10/20/18 10/20/18 05:23 05:30 05:31 Temperature Pulse Rate 86 87 87 Pulse Rate [ Anterior Bilateral Throughout] Pulse Rate [ 88 Apical] Pulse Rate [ 88 From Monitor] Pulse Rate [ 88 Left Dorsalis Pedis] Pulse Rate [ 88 Left Radial] Pulse Rate [ 88 Right Dorsalis Pedis] Pulse Rate [ 88 Right Radial] Respiratory 25 H 30 H Rate Respiratory Rate [Anterior Bilateral Throughout] Respiratory Rate [Back] Respiratory Rate [Bilateral Leg] Blood Pressure 103/68 103/68 O2 Sat by Pulse 100 100 Oximetry 10/20/18 10/20/18 10/20/18 05:41 05:51 06:00 Temperature Pulse Rate 86 87 87 Pulse Rate [ Anterior Bilateral Throughout] Pulse Rate [ Apical] Pulse Rate [ From Monitor] Pulse Rate [ Left Dorsalis Pedis] Pulse Rate [ Left Radial] Pulse Rate [ Right Dorsalis Pedis] Pulse Rate [ Right Radial] Respiratory 40 H 24 30 H Rate Respiratory Rate [Anterior Bilateral Throughout] Respiratory Rate [Back] Respiratory Rate [Bilateral Leg] Blood Pressure 103/68 103/68 119/72 O2 Sat by Pulse 99 100 98 Oximetry 10/20/18 10/20/18 10/20/18 06:10 06:21 06:30 Temperature Pulse Rate 91 H 86 86 Pulse Rate [ Anterior Bilateral Throughout] Pulse Rate [ Apical] Pulse Rate [ From Monitor] Pulse Rate [ Left Dorsalis Pedis] Pulse Rate [ Left Radial] Pulse Rate [ Right Dorsalis Pedis] Pulse Rate [ Right Radial] Respiratory 28 H 29 H 29 H Rate Respiratory Rate [Anterior Bilateral Throughout] Respiratory Rate [Back] Respiratory Rate [Bilateral Leg] Blood Pressure 119/72 102/70 O2 Sat by Pulse 99 99 99 Oximetry 10/20/18 10/20/18 10/20/18 06:41 06:51 07:00 Temperature Pulse Rate 85 86 86 Pulse Rate [ Anterior Bilateral Throughout] Pulse Rate [ Apical] Pulse Rate [ From Monitor] Pulse Rate [ Left Dorsalis Pedis] Pulse Rate [ Left Radial] Pulse Rate [ Right Dorsalis Pedis] Pulse Rate [ Right Radial] Respiratory 30 H 30 H 30 H Rate Respiratory Rate [Anterior Bilateral Throughout] Respiratory Rate [Back] Respiratory Rate [Bilateral Leg] Blood Pressure 102/70 102/70 107/68 O2 Sat by Pulse 99 99 98 Oximetry 10/20/18 10/20/18 10/20/18 07:11 07:21 07:30 Temperature Pulse Rate 85 85 87 Pulse Rate [ Anterior Bilateral Throughout] Pulse Rate [ Apical] Pulse Rate [ From Monitor] Pulse Rate [ Left Dorsalis Pedis] Pulse Rate [ Left Radial] Pulse Rate [ Right Dorsalis Pedis] Pulse Rate [ Right Radial] Respiratory 30 H 29 H 24 Rate Respiratory Rate [Anterior Bilateral Throughout] Respiratory Rate [Back] Respiratory Rate [Bilateral Leg] Blood Pressure 107/68 107/68 109/71 O2 Sat by Pulse 98 98 96 Oximetry 10/20/18 10/20/18 10/20/18 07:41 07:47 07:48 Temperature Pulse Rate 92 H Pulse Rate [ 92 H Anterior Bilateral Throughout] Pulse Rate [ Apical] Pulse Rate [ From Monitor] Pulse Rate [ Left Dorsalis Pedis] Pulse Rate [ Left Radial] Pulse Rate [ Right Dorsalis Pedis] Pulse Rate [ Right Radial] Respiratory 32 H Rate Respiratory 20 Rate [Anterior Bilateral Throughout] Respiratory Rate [Back] Respiratory Rate [Bilateral Leg] Blood Pressure 109/71 O2 Sat by Pulse 98 99 Oximetry 10/20/18 10/20/18 10/20/18 07:51 07:58 08:00 Temperature 97.8 F Pulse Rate 91 H 88 Pulse Rate [ 92 H Anterior Bilateral Throughout] Pulse Rate [ Apical] Pulse Rate [ 88 From Monitor] Pulse Rate [ Left Dorsalis Pedis] Pulse Rate [ Left Radial] Pulse Rate [ Right Dorsalis Pedis] Pulse Rate [ Right Radial] Respiratory 26 H 29 H Rate Respiratory 20 Rate [Anterior Bilateral Throughout] Respiratory Rate [Back] Respiratory Rate [Bilateral Leg] Blood Pressure 109/71 105/69 O2 Sat by Pulse 100 100 Oximetry Constitutional: alert, appears uncomfortable, other (elderly looking AAM, normocephalic and atraumatic with mildly increased resp effort at rest) Eyes: non-icteric ENT: oropharynx dry, other (Mallampati 2) Neck: supple, no lymphadenopathy, no JVD Effort: mildly labored Ascultation: Bilateral: clear Percussion: Bilateral: not dull Cardiovascular: irregular rhythm, other (No R/M) Gastrointestinal: hypoactive bowel sounds, soft, non-tender, non-distended, other (wound vac) Integumentary: rash, decubitus ulcer (sacral) Extremities: no cyanosis, no edema, pulses normal, no ischemia or petechiae Neurologic: normal mental status, non-focal exam (grossly), pupils equal and round, other (weak lower extremities) Psychiatric: mood appropriate, affect normal CBC and BMP: 10/19/18 04:00 10/20/18 04:14 ABG, PT/INR, D-dimer: ABG POC ABG pH 7.380 (7.35-7.45) 10/11/18 17:53 POC ABG pCO2 28.2 (35-45) L 10/11/18 17:53 POC ABG pO2 60 (80-105) L 10/11/18 17:53 POC ABG HCO3 16.7 10/11/18 17:53 POC ABG Total CO2 18 10/11/18 17:53 POC ABG O2 Sat 91 10/11/18 17:53 PT/INR, D-dimer PT 33.4 Sec. (12.2-14.9) H 10/20/18 04:14 INR 3.24 (0.87-1.13) H 10/20/18 04:14 Abnormal lab findings: Abnormal Labs 10/11/18 10/11/18 10/11/18 05:21 05:21 05:21 WBC 22.3 H RBC 2.62 L Hgb 8.0 L Hct 24.5 L MCHC RDW 16.0 H Seg Neuts % (Manual) 90.0 H Lymphocytes % (Manual) 4.0 L Seg Neutrophils # Man 20.1 H Lymphocytes # (Manual) 0.9 L Monocytes # (Manual) Eosinophils # (Manual) Basophils # (Manual) PT 17.1 H INR 1.35 H POC ABG pCO2 POC ABG pO2 VBG pH Sodium 133 L Potassium 2.8 L* Chloride 94.5 L Carbon Dioxide 11 L BUN 69 H Creatinine 5.0 H Glucose 362 H POC Glucose Lactic Acid Calcium 7.4 L Phosphorus Magnesium Alkaline Phosphatase Total Creatine Kinase Troponin T 0.116 H* C-Reactive Protein Total Protein 6.2 L Albumin 2.1 L Cholesterol 26 L LDL Cholesterol Direct 4 L HDL Cholesterol 7 L Urine WBC (Auto) Crossmatch 10/11/18 10/11/18 10/11/18 05:21 05:21 05:21 WBC RBC Hgb Hct MCHC RDW Seg Neuts % (Manual) Lymphocytes % (Manual) Seg Neutrophils # Man Lymphocytes # (Manual) Monocytes # (Manual) Eosinophils # (Manual) Basophils # (Manual) PT INR POC ABG pCO2 POC ABG pO2 VBG pH 7.226 L Sodium Potassium Chloride Carbon Dioxide BUN Creatinine Glucose POC Glucose Lactic Acid 7.40 H* Calcium Phosphorus Magnesium Alkaline Phosphatase Total Creatine Kinase 1094 H Troponin T C-Reactive Protein Total Protein Albumin Cholesterol LDL Cholesterol Direct HDL Cholesterol Urine WBC (Auto) Crossmatch 10/11/18 10/11/18 10/11/18 06:08 06:51 06:51 WBC RBC Hgb Hct MCHC RDW Seg Neuts % (Manual) Lymphocytes % (Manual) Seg Neutrophils # Man Lymphocytes # (Manual) Monocytes # (Manual) Eosinophils # (Manual) Basophils # (Manual) PT INR POC ABG pCO2 POC ABG pO2 VBG pH Sodium 132 L Potassium 3.1 L Chloride 94.3 L Carbon Dioxide 10 L BUN 68 H Creatinine 5.8 H Glucose 402 H POC Glucose Lactic Acid 7.80 H* Calcium 7.8 L Phosphorus 4.80 H Magnesium 0.90 L* Alkaline Phosphatase Total Creatine Kinase Troponin T C-Reactive Protein Total Protein Albumin Cholesterol LDL Cholesterol Direct HDL Cholesterol Urine WBC (Auto) > 182.0 H Crossmatch 10/11/18 10/11/18 10/11/18 08:56 09:05 10:23 WBC RBC Hgb Hct MCHC RDW Seg Neuts % (Manual) Lymphocytes % (Manual) Seg Neutrophils # Man Lymphocytes # (Manual) Monocytes # (Manual) Eosinophils # (Manual) Basophils # (Manual) PT INR POC ABG pCO2 POC ABG pO2 VBG pH Sodium Potassium Chloride Carbon Dioxide BUN Creatinine Glucose POC Glucose 367 H 305 H Lactic Acid Calcium Phosphorus Magnesium Alkaline Phosphatase Total Creatine Kinase Troponin T C-Reactive Protein Total Protein Albumin Cholesterol LDL Cholesterol Direct HDL Cholesterol Urine WBC (Auto) Crossmatch See Detail 10/11/18 10/11/18 10/11/18 11:12 12:17 12:18 WBC RBC Hgb Hct MCHC RDW Seg Neuts % (Manual) Lymphocytes % (Manual) Seg Neutrophils # Man Lymphocytes # (Manual) Monocytes # (Manual) Eosinophils # (Manual) Basophils # (Manual) PT INR POC ABG pCO2 POC ABG pO2 VBG pH Sodium 135 L Potassium 2.8 L* Chloride 97.9 L Carbon Dioxide 14 L BUN 67 H Creatinine 6.0 H Glucose 246 H POC Glucose 299 H 261 H Lactic Acid Calcium 7.5 L Phosphorus Magnesium Alkaline Phosphatase Total Creatine Kinase 1110 H Troponin T C-Reactive Protein Total Protein Albumin Cholesterol LDL Cholesterol Direct HDL Cholesterol Urine WBC (Auto) Crossmatch 10/11/18 10/11/18 10/11/18 13:05 14:13 14:34 WBC RBC Hgb Hct MCHC RDW Seg Neuts % (Manual) Lymphocytes % (Manual) Seg Neutrophils # Man Lymphocytes # (Manual) Monocytes # (Manual) Eosinophils # (Manual) Basophils # (Manual) PT INR POC ABG pCO2 POC ABG pO2 VBG pH Sodium 135 L Potassium 2.7 L* Chloride Carbon Dioxide 18 L BUN 68 H Creatinine 5.0 H Glucose 191 H POC Glucose 251 H 233 H Lactic Acid Calcium 7.1 L Phosphorus Magnesium Alkaline Phosphatase Total Creatine Kinase Troponin T C-Reactive Protein Total Protein Albumin Cholesterol LDL Cholesterol Direct HDL Cholesterol Urine WBC (Auto) Crossmatch 10/11/18 10/11/18 10/11/18 15:08 16:00 17:20 WBC RBC Hgb Hct MCHC RDW Seg Neuts % (Manual) Lymphocytes % (Manual) Seg Neutrophils # Man Lymphocytes # (Manual) Monocytes # (Manual) Eosinophils # (Manual) Basophils # (Manual) PT INR POC ABG pCO2 POC ABG pO2 VBG pH Sodium Potassium Chloride Carbon Dioxide BUN Creatinine Glucose POC Glucose 213 H 224 H 187 H Lactic Acid Calcium Phosphorus Magnesium Alkaline Phosphatase Total Creatine Kinase Troponin T C-Reactive Protein Total Protein Albumin Cholesterol LDL Cholesterol Direct HDL Cholesterol Urine WBC (Auto) Crossmatch 10/11/18 10/11/18 10/11/18 17:53 17:58 18:12 WBC RBC Hgb Hct MCHC RDW Seg Neuts % (Manual) Lymphocytes % (Manual) Seg Neutrophils # Man Lymphocytes # (Manual) Monocytes # (Manual) Eosinophils # (Manual) Basophils # (Manual) PT INR POC ABG pCO2 28.2 L POC ABG pO2 60 L VBG pH Sodium Potassium Chloride Carbon Dioxide BUN Creatinine Glucose POC Glucose 189 H Lactic Acid Calcium Phosphorus Magnesium Alkaline Phosphatase Total Creatine Kinase 933 H Troponin T C-Reactive Protein Total Protein Albumin Cholesterol LDL Cholesterol Direct HDL Cholesterol Urine WBC (Auto) Crossmatch 10/11/18 10/11/18 10/11/18 18:58 20:16 21:10 WBC RBC Hgb Hct MCHC RDW Seg Neuts % (Manual) Lymphocytes % (Manual) Seg Neutrophils # Man Lymphocytes # (Manual) Monocytes # (Manual) Eosinophils # (Manual) Basophils # (Manual) PT INR POC ABG pCO2 POC ABG pO2 VBG pH Sodium Potassium Chloride Carbon Dioxide BUN Creatinine Glucose POC Glucose 192 H 179 H 160 H Lactic Acid Calcium Phosphorus Magnesium Alkaline Phosphatase Total Creatine Kinase Troponin T C-Reactive Protein Total Protein Albumin Cholesterol LDL Cholesterol Direct HDL Cholesterol Urine WBC (Auto) Crossmatch 10/11/18 10/11/18 10/11/18 22:14 22:42 23:09 WBC RBC Hgb Hct MCHC RDW Seg Neuts % (Manual) Lymphocytes % (Manual) Seg Neutrophils # Man Lymphocytes # (Manual) Monocytes # (Manual) Eosinophils # (Manual) Basophils # (Manual) PT INR POC ABG pCO2 POC ABG pO2 VBG pH Sodium 136 L Potassium 2.9 L* Chloride Carbon Dioxide 17 L BUN 61 H Creatinine 4.0 H Glucose 122 H POC Glucose 145 H 129 H Lactic Acid Calcium 6.6 L Phosphorus Magnesium Alkaline Phosphatase Total Creatine Kinase Troponin T C-Reactive Protein Total Protein Albumin Cholesterol LDL Cholesterol Direct HDL Cholesterol Urine WBC (Auto) Crossmatch 10/11/18 10/11/18 10/11/18 Unknown Unknown Unknown WBC RBC Hgb Hct MCHC RDW Seg Neuts % (Manual) Lymphocytes % (Manual) Seg Neutrophils # Man Lymphocytes # (Manual) Monocytes # (Manual) Eosinophils # (Manual) Basophils # (Manual) PT INR POC ABG pCO2 POC ABG pO2 VBG pH Sodium 133 L Potassium 3.0 L Chloride 93.7 L Carbon Dioxide 9 L* BUN 67 H Creatinine 5.9 H Glucose 406 H POC Glucose Lactic Acid 8.50 H* Calcium 7.6 L Phosphorus Magnesium Alkaline Phosphatase Total Creatine Kinase Troponin T C-Reactive Protein Total Protein Albumin Cholesterol LDL Cholesterol Direct HDL Cholesterol Urine WBC (Auto) > 182.0 H Crossmatch 10/12/18 10/12/18 10/12/18 00:18 01:42 02:03 WBC RBC Hgb Hct MCHC RDW Seg Neuts % (Manual) Lymphocytes % (Manual) Seg Neutrophils # Man Lymphocytes # (Manual) Monocytes # (Manual) Eosinophils # (Manual) Basophils # (Manual) PT INR POC ABG pCO2 POC ABG pO2 VBG pH Sodium Potassium Chloride Carbon Dioxide BUN Creatinine Glucose POC Glucose 113 H 51 L 116 H Lactic Acid Calcium Phosphorus Magnesium Alkaline Phosphatase Total Creatine Kinase Troponin T C-Reactive Protein Total Protein Albumin Cholesterol LDL Cholesterol Direct HDL Cholesterol Urine WBC (Auto) Crossmatch 10/12/18 10/12/18 10/12/18 03:09 04:20 04:20 WBC 26.8 H RBC 2.22 L Hgb 6.7 L Hct 19.4 L* MCHC 35 H RDW 15.8 H Seg Neuts % (Manual) Lymphocytes % (Manual) Seg Neutrophils # Man Lymphocytes # (Manual) Monocytes # (Manual) Eosinophils # (Manual) Basophils # (Manual) PT INR POC ABG pCO2 POC ABG pO2 VBG pH Sodium Potassium 2.6 L* Chloride Carbon Dioxide 20 L BUN 56 H Creatinine 4.0 H Glucose 134 H POC Glucose 129 H Lactic Acid Calcium 6.4 L Phosphorus Magnesium 1.30 L Alkaline Phosphatase Total Creatine Kinase Troponin T C-Reactive Protein Total Protein 5.8 L Albumin 1.8 L Cholesterol LDL Cholesterol Direct HDL Cholesterol Urine WBC (Auto) Crossmatch 10/12/18 10/12/18 10/12/18 04:22 05:25 06:25 WBC RBC Hgb Hct MCHC RDW Seg Neuts % (Manual) Lymphocytes % (Manual) Seg Neutrophils # Man Lymphocytes # (Manual) Monocytes # (Manual) Eosinophils # (Manual) Basophils # (Manual) PT INR POC ABG pCO2 POC ABG pO2 VBG pH Sodium Potassium 2.7 L* Chloride Carbon Dioxide 19 L BUN 51 H Creatinine 3.6 H Glucose 113 H POC Glucose 186 H 131 H Lactic Acid Calcium 6.4 L Phosphorus Magnesium Alkaline Phosphatase Total Creatine Kinase Troponin T C-Reactive Protein Total Protein Albumin Cholesterol LDL Cholesterol Direct HDL Cholesterol Urine WBC (Auto) Crossmatch 10/12/18 10/12/18 10/12/18 07:34 08:28 09:29 WBC RBC Hgb Hct MCHC RDW Seg Neuts % (Manual) Lymphocytes % (Manual) Seg Neutrophils # Man Lymphocytes # (Manual) Monocytes # (Manual) Eosinophils # (Manual) Basophils # (Manual) PT INR POC ABG pCO2 POC ABG pO2 VBG pH Sodium Potassium Chloride Carbon Dioxide BUN Creatinine Glucose POC Glucose 120 H 110 H 140 H Lactic Acid Calcium Phosphorus Magnesium Alkaline Phosphatase Total Creatine Kinase Troponin T C-Reactive Protein Total Protein Albumin Cholesterol LDL Cholesterol Direct HDL Cholesterol Urine WBC (Auto) Crossmatch 10/12/18 10/12/18 10/12/18 11:55 12:55 12:55 WBC RBC Hgb 7.1 L Hct 20.6 L MCHC RDW Seg Neuts % (Manual) Lymphocytes % (Manual) Seg Neutrophils # Man Lymphocytes # (Manual) Monocytes # (Manual) Eosinophils # (Manual) Basophils # (Manual) PT INR POC ABG pCO2 POC ABG pO2 VBG pH Sodium 136 L Potassium 2.9 L* Chloride Carbon Dioxide 16 L BUN 48 H Creatinine 3.1 H Glucose 258 H POC Glucose 219 H Lactic Acid Calcium 6.3 L Phosphorus Magnesium Alkaline Phosphatase Total Creatine Kinase Troponin T C-Reactive Protein Total Protein Albumin Cholesterol LDL Cholesterol Direct HDL Cholesterol Urine WBC (Auto) Crossmatch 10/12/18 10/12/18 10/12/18 12:55 17:49 19:23 WBC RBC Hgb 7.7 L Hct 22.9 L MCHC RDW Seg Neuts % (Manual) Lymphocytes % (Manual) Seg Neutrophils # Man Lymphocytes # (Manual) Monocytes # (Manual) Eosinophils # (Manual) Basophils # (Manual) PT INR POC ABG pCO2 POC ABG pO2 VBG pH Sodium Potassium Chloride Carbon Dioxide BUN Creatinine Glucose POC Glucose 344 H Lactic Acid Calcium Phosphorus Magnesium 4.80 H Alkaline Phosphatase Total Creatine Kinase Troponin T C-Reactive Protein Total Protein Albumin Cholesterol LDL Cholesterol Direct HDL Cholesterol Urine WBC (Auto) Crossmatch 10/12/18 10/13/18 10/13/18 22:21 00:15 05:28 WBC RBC Hgb Hct MCHC RDW Seg Neuts % (Manual) Lymphocytes % (Manual) Seg Neutrophils # Man Lymphocytes # (Manual) Monocytes # (Manual) Eosinophils # (Manual) Basophils # (Manual) PT INR POC ABG pCO2 POC ABG pO2 VBG pH Sodium Potassium Chloride Carbon Dioxide BUN Creatinine Glucose POC Glucose 367 H 392 H 356 H Lactic Acid Calcium Phosphorus Magnesium Alkaline Phosphatase Total Creatine Kinase Troponin T C-Reactive Protein Total Protein Albumin Cholesterol LDL Cholesterol Direct HDL Cholesterol Urine WBC (Auto) Crossmatch 10/13/18 10/13/18 10/13/18 05:30 05:30 06:37 WBC 19.2 H RBC 2.67 L Hgb 7.9 L Hct 23.2 L MCHC RDW 16.4 H Seg Neuts % (Manual) Lymphocytes % (Manual) Seg Neutrophils # Man Lymphocytes # (Manual) Monocytes # (Manual) Eosinophils # (Manual) Basophils # (Manual) PT INR POC ABG pCO2 POC ABG pO2 VBG pH Sodium 135 L Potassium 2.8 L* Chloride Carbon Dioxide 17 L BUN 37 H Creatinine 2.0 H Glucose 383 H POC Glucose 413 H Lactic Acid Calcium 6.6 L Phosphorus Magnesium Alkaline Phosphatase Total Creatine Kinase Troponin T C-Reactive Protein Total Protein Albumin Cholesterol LDL Cholesterol Direct HDL Cholesterol Urine WBC (Auto) Crossmatch 10/13/18 10/13/18 10/13/18 11:15 12:46 17:47 WBC RBC Hgb Hct MCHC RDW Seg Neuts % (Manual) Lymphocytes % (Manual) Seg Neutrophils # Man Lymphocytes # (Manual) Monocytes # (Manual) Eosinophils # (Manual) Basophils # (Manual) PT INR POC ABG pCO2 POC ABG pO2 VBG pH Sodium Potassium 3.2 L Chloride Carbon Dioxide BUN Creatinine Glucose POC Glucose 220 H 181 H Lactic Acid Calcium Phosphorus Magnesium Alkaline Phosphatase Total Creatine Kinase Troponin T C-Reactive Protein Total Protein Albumin Cholesterol LDL Cholesterol Direct HDL Cholesterol Urine WBC (Auto) Crossmatch 10/13/18 10/13/18 10/13/18 19:45 22:19 23:53 WBC RBC Hgb Hct MCHC RDW Seg Neuts % (Manual) Lymphocytes % (Manual) Seg Neutrophils # Man Lymphocytes # (Manual) Monocytes # (Manual) Eosinophils # (Manual) Basophils # (Manual) PT INR POC ABG pCO2 POC ABG pO2 VBG pH Sodium Potassium Chloride Carbon Dioxide BUN Creatinine Glucose POC Glucose 185 H 153 H 152 H Lactic Acid Calcium Phosphorus Magnesium Alkaline Phosphatase Total Creatine Kinase Troponin T C-Reactive Protein Total Protein Albumin Cholesterol LDL Cholesterol Direct HDL Cholesterol Urine WBC (Auto) Crossmatch 10/14/18 10/14/18 10/14/18 02:38 04:36 04:36 WBC 19.8 H RBC 3.02 L Hgb 8.9 L Hct 26.1 L MCHC RDW 16.7 H Seg Neuts % (Manual) Lymphocytes % (Manual) Seg Neutrophils # Man Lymphocytes # (Manual) Monocytes # (Manual) Eosinophils # (Manual) Basophils # (Manual) PT INR POC ABG pCO2 POC ABG pO2 VBG pH Sodium Potassium 2.9 L* Chloride 121.6 H Carbon Dioxide 16 L BUN 25 H Creatinine 1.6 H Glucose 117 H POC Glucose 142 H Lactic Acid Calcium 7.0 L Phosphorus Magnesium Alkaline Phosphatase Total Creatine Kinase Troponin T C-Reactive Protein Total Protein Albumin Cholesterol LDL Cholesterol Direct HDL Cholesterol Urine WBC (Auto) Crossmatch 10/14/18 10/14/18 10/14/18 04:36 09:45 10:59 WBC RBC Hgb Hct MCHC RDW Seg Neuts % (Manual) Lymphocytes % (Manual) Seg Neutrophils # Man Lymphocytes # (Manual) Monocytes # (Manual) Eosinophils # (Manual) Basophils # (Manual) PT INR POC ABG pCO2 POC ABG pO2 VBG pH Sodium Potassium 3.2 L Chloride Carbon Dioxide BUN Creatinine Glucose POC Glucose 110 H Lactic Acid Calcium Phosphorus Magnesium 1.20 L Alkaline Phosphatase Total Creatine Kinase Troponin T C-Reactive Protein Total Protein Albumin Cholesterol LDL Cholesterol Direct HDL Cholesterol Urine WBC (Auto) Crossmatch 10/14/18 10/14/18 10/14/18 14:22 17:41 22:58 WBC RBC Hgb Hct MCHC RDW Seg Neuts % (Manual) Lymphocytes % (Manual) Seg Neutrophils # Man Lymphocytes # (Manual) Monocytes # (Manual) Eosinophils # (Manual) Basophils # (Manual) PT INR POC ABG pCO2 POC ABG pO2 VBG pH Sodium Potassium Chloride Carbon Dioxide BUN Creatinine Glucose POC Glucose 106 H 116 H 134 H Lactic Acid Calcium Phosphorus Magnesium Alkaline Phosphatase Total Creatine Kinase Troponin T C-Reactive Protein Total Protein Albumin Cholesterol LDL Cholesterol Direct HDL Cholesterol Urine WBC (Auto) Crossmatch 10/15/18 10/15/18 10/15/18 06:14 11:21 11:21 WBC 31.9 H RBC 2.99 L Hgb 8.6 L Hct 26.4 L MCHC RDW 16.9 H Seg Neuts % (Manual) 92.0 H Lymphocytes % (Manual) 7.0 L Seg Neutrophils # Man 29.3 H Lymphocytes # (Manual) Monocytes # (Manual) Eosinophils # (Manual) Basophils # (Manual) PT INR POC ABG pCO2 POC ABG pO2 VBG pH Sodium Potassium Chloride 111.6 H Carbon Dioxide 14 L BUN Creatinine Glucose 175 H POC Glucose 184 H Lactic Acid Calcium 7.2 L Phosphorus Magnesium Alkaline Phosphatase Total Creatine Kinase Troponin T C-Reactive Protein Total Protein Albumin Cholesterol LDL Cholesterol Direct HDL Cholesterol Urine WBC (Auto) Crossmatch 10/15/18 10/15/18 10/15/18 11:21 11:27 14:43 WBC RBC Hgb Hct MCHC RDW Seg Neuts % (Manual) Lymphocytes % (Manual) Seg Neutrophils # Man Lymphocytes # (Manual) Monocytes # (Manual) Eosinophils # (Manual) Basophils # (Manual) PT INR POC ABG pCO2 POC ABG pO2 VBG pH Sodium Potassium Chloride Carbon Dioxide BUN Creatinine Glucose POC Glucose 197 H 174 H Lactic Acid Calcium Phosphorus Magnesium 1.30 L Alkaline Phosphatase Total Creatine Kinase Troponin T C-Reactive Protein Total Protein Albumin Cholesterol LDL Cholesterol Direct HDL Cholesterol Urine WBC (Auto) Crossmatch 10/15/18 10/15/18 10/15/18 16:06 20:13 23:55 WBC RBC Hgb Hct MCHC RDW Seg Neuts % (Manual) Lymphocytes % (Manual) Seg Neutrophils # Man Lymphocytes # (Manual) Monocytes # (Manual) Eosinophils # (Manual) Basophils # (Manual) PT 26.5 H INR 2.40 H POC ABG pCO2 POC ABG pO2 VBG pH Sodium Potassium Chloride Carbon Dioxide BUN Creatinine Glucose POC Glucose 131 H 132 H Lactic Acid Calcium Phosphorus Magnesium Alkaline Phosphatase Total Creatine Kinase Troponin T C-Reactive Protein Total Protein Albumin Cholesterol LDL Cholesterol Direct HDL Cholesterol Urine WBC (Auto) Crossmatch 10/16/18 10/16/18 10/16/18 05:08 05:08 05:08 WBC 29.6 H RBC 2.99 L Hgb 8.7 L Hct 27.7 L MCHC RDW 17.9 H Seg Neuts % (Manual) Lymphocytes % (Manual) Seg Neutrophils # Man Lymphocytes # (Manual) Monocytes # (Manual) Eosinophils # (Manual) Basophils # (Manual) PT INR POC ABG pCO2 POC ABG pO2 VBG pH Sodium Potassium Chloride 119.9 H Carbon Dioxide 12 L BUN Creatinine Glucose 116 H POC Glucose Lactic Acid Calcium 6.7 L Phosphorus Magnesium 1.50 L Alkaline Phosphatase Total Creatine Kinase Troponin T C-Reactive Protein Total Protein Albumin Cholesterol LDL Cholesterol Direct HDL Cholesterol Urine WBC (Auto) Crossmatch 10/16/18 10/16/18 10/16/18 05:08 05:49 17:44 WBC RBC Hgb Hct MCHC RDW Seg Neuts % (Manual) Lymphocytes % (Manual) Seg Neutrophils # Man Lymphocytes # (Manual) Monocytes # (Manual) Eosinophils # (Manual) Basophils # (Manual) PT 22.2 H INR 1.90 H POC ABG pCO2 POC ABG pO2 VBG pH Sodium Potassium Chloride Carbon Dioxide BUN Creatinine Glucose POC Glucose 118 H 50 L Lactic Acid Calcium Phosphorus Magnesium Alkaline Phosphatase Total Creatine Kinase Troponin T C-Reactive Protein Total Protein Albumin Cholesterol LDL Cholesterol Direct HDL Cholesterol Urine WBC (Auto) Crossmatch 10/16/18 10/16/18 10/17/18 18:29 19:33 00:04 WBC RBC Hgb Hct MCHC RDW Seg Neuts % (Manual) Lymphocytes % (Manual) Seg Neutrophils # Man Lymphocytes # (Manual) Monocytes # (Manual) Eosinophils # (Manual) Basophils # (Manual) PT INR POC ABG pCO2 POC ABG pO2 VBG pH Sodium Potassium Chloride Carbon Dioxide BUN Creatinine Glucose POC Glucose 60 L 118 H 181 H Lactic Acid Calcium Phosphorus Magnesium Alkaline Phosphatase Total Creatine Kinase Troponin T C-Reactive Protein Total Protein Albumin Cholesterol LDL Cholesterol Direct HDL Cholesterol Urine WBC (Auto) Crossmatch 10/17/18 10/17/18 10/17/18 04:52 04:52 05:26 WBC RBC Hgb Hct MCHC RDW Seg Neuts % (Manual) Lymphocytes % (Manual) Seg Neutrophils # Man Lymphocytes # (Manual) Monocytes # (Manual) Eosinophils # (Manual) Basophils # (Manual) PT 20.9 H INR 1.76 H POC ABG pCO2 POC ABG pO2 VBG pH Sodium Potassium Chloride 113.4 H Carbon Dioxide 14 L BUN Creatinine Glucose 118 H POC Glucose 135 H Lactic Acid Calcium 7.0 L Phosphorus Magnesium Alkaline Phosphatase 219 H Total Creatine Kinase Troponin T C-Reactive Protein Total Protein 5.5 L Albumin 1.3 L Cholesterol LDL Cholesterol Direct HDL Cholesterol Urine WBC (Auto) Crossmatch 10/17/18 10/17/18 10/17/18 12:15 17:40 23:15 WBC RBC Hgb Hct MCHC RDW Seg Neuts % (Manual) Lymphocytes % (Manual) Seg Neutrophils # Man Lymphocytes # (Manual) Monocytes # (Manual) Eosinophils # (Manual) Basophils # (Manual) PT INR POC ABG pCO2 POC ABG pO2 VBG pH Sodium Potassium Chloride Carbon Dioxide BUN Creatinine Glucose POC Glucose 165 H 164 H 185 H Lactic Acid Calcium Phosphorus Magnesium Alkaline Phosphatase Total Creatine Kinase Troponin T C-Reactive Protein Total Protein Albumin Cholesterol LDL Cholesterol Direct HDL Cholesterol Urine WBC (Auto) Crossmatch 10/18/18 10/18/18 10/18/18 04:39 04:39 04:39 WBC 28.7 H RBC 2.97 L Hgb 8.6 L Hct 26.0 L MCHC RDW 16.8 H Seg Neuts % (Manual) 90.0 H Lymphocytes % (Manual) 5.0 L Seg Neutrophils # Man 25.8 H Lymphocytes # (Manual) Monocytes # (Manual) Eosinophils # (Manual) Basophils # (Manual) 0.3 H PT 25.0 H INR 2.22 H POC ABG pCO2 POC ABG pO2 VBG pH Sodium Potassium Chloride Carbon Dioxide BUN Creatinine Glucose POC Glucose Lactic Acid Calcium Phosphorus Magnesium 1.20 L Alkaline Phosphatase Total Creatine Kinase Troponin T C-Reactive Protein Total Protein Albumin Cholesterol LDL Cholesterol Direct HDL Cholesterol Urine WBC (Auto) Crossmatch 10/18/18 10/18/18 10/18/18 05:18 08:11 12:23 WBC RBC Hgb Hct MCHC RDW Seg Neuts % (Manual) Lymphocytes % (Manual) Seg Neutrophils # Man Lymphocytes # (Manual) Monocytes # (Manual) Eosinophils # (Manual) Basophils # (Manual) PT INR POC ABG pCO2 POC ABG pO2 VBG pH Sodium Potassium 3.0 L D Chloride 110.2 H Carbon Dioxide 20 L BUN Creatinine Glucose 185 H POC Glucose 185 H 217 H Lactic Acid Calcium 6.8 L Phosphorus Magnesium Alkaline Phosphatase Total Creatine Kinase Troponin T C-Reactive Protein Total Protein Albumin Cholesterol LDL Cholesterol Direct HDL Cholesterol Urine WBC (Auto) Crossmatch 10/18/18 10/18/18 10/18/18 13:41 16:32 16:35 WBC RBC Hgb Hct MCHC RDW Seg Neuts % (Manual) Lymphocytes % (Manual) Seg Neutrophils # Man Lymphocytes # (Manual) Monocytes # (Manual) Eosinophils # (Manual) Basophils # (Manual) PT INR POC ABG pCO2 POC ABG pO2 VBG pH Sodium Potassium Chloride Carbon Dioxide BUN Creatinine Glucose POC Glucose 118 H Lactic Acid Calcium Phosphorus Magnesium Alkaline Phosphatase Total Creatine Kinase Troponin T C-Reactive Protein 6.80 H Total Protein Albumin Cholesterol LDL Cholesterol Direct HDL Cholesterol Urine WBC (Auto) 22.0 H Crossmatch 10/18/18 10/19/18 10/19/18 23:45 04:00 04:00 WBC 24.1 H RBC 2.67 L Hgb 7.8 L Hct 23.3 L MCHC RDW 17.0 H Seg Neuts % (Manual) 73.0 H Lymphocytes % (Manual) Seg Neutrophils # Man 17.6 H Lymphocytes # (Manual) Monocytes # (Manual) 1.4 H Eosinophils # (Manual) 0.7 H Basophils # (Manual) PT INR POC ABG pCO2 POC ABG pO2 VBG pH Sodium Potassium 3.5 L Chloride 110.9 H Carbon Dioxide 21 L BUN Creatinine Glucose 113 H POC Glucose 147 H Lactic Acid Calcium 6.8 L Phosphorus Magnesium Alkaline Phosphatase Total Creatine Kinase Troponin T C-Reactive Protein Total Protein Albumin Cholesterol LDL Cholesterol Direct HDL Cholesterol Urine WBC (Auto) Crossmatch 10/19/18 10/19/18 10/19/18 05:16 05:17 12:19 WBC RBC Hgb Hct MCHC RDW Seg Neuts % (Manual) Lymphocytes % (Manual) Seg Neutrophils # Man Lymphocytes # (Manual) Monocytes # (Manual) Eosinophils # (Manual) Basophils # (Manual) PT 32.7 H INR 3.16 H POC ABG pCO2 POC ABG pO2 VBG pH Sodium Potassium Chloride Carbon Dioxide BUN Creatinine Glucose POC Glucose 117 H 136 H Lactic Acid Calcium Phosphorus Magnesium Alkaline Phosphatase Total Creatine Kinase Troponin T C-Reactive Protein Total Protein Albumin Cholesterol LDL Cholesterol Direct HDL Cholesterol Urine WBC (Auto) Crossmatch 10/19/18 10/19/18 10/20/18 18:05 21:53 00:06 WBC RBC Hgb Hct MCHC RDW Seg Neuts % (Manual) Lymphocytes % (Manual) Seg Neutrophils # Man Lymphocytes # (Manual) Monocytes # (Manual) Eosinophils # (Manual) Basophils # (Manual) PT INR POC ABG pCO2 POC ABG pO2 VBG pH Sodium Potassium Chloride Carbon Dioxide BUN Creatinine Glucose POC Glucose 107 H 206 H 200 H Lactic Acid Calcium Phosphorus Magnesium Alkaline Phosphatase Total Creatine Kinase Troponin T C-Reactive Protein Total Protein Albumin Cholesterol LDL Cholesterol Direct HDL Cholesterol Urine WBC (Auto) Crossmatch 10/20/18 10/20/18 10/20/18 04:14 04:14 05:20 WBC RBC Hgb Hct MCHC RDW Seg Neuts % (Manual) Lymphocytes % (Manual) Seg Neutrophils # Man Lymphocytes # (Manual) Monocytes # (Manual) Eosinophils # (Manual) Basophils # (Manual) PT 33.4 H INR 3.24 H POC ABG pCO2 POC ABG pO2 VBG pH Sodium Potassium Chloride 112.5 H Carbon Dioxide 19 L BUN Creatinine 1.7 H Glucose 107 H POC Glucose 107 H Lactic Acid Calcium 7.1 L Phosphorus Magnesium 1.60 L Alkaline Phosphatase Total Creatine Kinase Troponin T C-Reactive Protein Total Protein Albumin Cholesterol LDL Cholesterol Direct HDL Cholesterol Urine WBC (Auto) Crossmatch Allied health notes reviewed: nursing
--- NOTE | 2018-10-20 11:35 | Progress Note ---
Assessment and Plan Assessment and plan: Dinora is a 58 year old male presenting from [place] ([facility]) Pt is a very poor historian, per medical records he has history of paroxysmal atrial fibrillation, hypertension, diabetes, Colosotomy and lack of coordination with Muscle weakness anal abscess with recent debridement in Aug 2018, chronic indwelling suarez who was referred to the ER from his senior care for evaluation of fever and low blood pressure and altered mental status. In the ER he was found to have urosepsis, acute renal failure and DKA with elevated troponin. Patient was unable to provided any information due to incoherence of his thoughts he complained of dry mouth per the ED Physician. He denies any chest pain, palpitations or shortness of breath. A report from the [place] revealed that he was noted this morning to be confused with shivering. Labs done the day prior to admission revealed a wbc of 31.4 per the staff. The patient in the ED was started on sepsis protocol and also pressers labs from senior care done 10/10/17: wbc 31.4, hgb 9.1, plt 271 Source ?chronic colitis, small bilateral pleural effusions, ileus, anasarca, bilateral renal calculi. Acute Toxic metabolic encephalopathy - Resolved Septic Shock Severe Sepsis - Leukocytosis, blood cultures was positive for beta hemolytic streptococcus group C, urine culture is negative - Patient is currently off pressors - On IV ceftriaxone, Flagyl and vancomycin - Flagyl and Rocephin will continue for 3 weeks per ID recommendation - TTE was done and is negative for any vegetation Hyperosmolar NonKetotic Hyperglycemia - Resolved Uncontrolled DM - Currently blood sugar level is on target - Unsteadiness to insulin MALCOLM secondary to vasomotor nephropathy - Creatinine is stable - Nephrology is following Severe acute blood loss anemia on anemia of chronic disease - H&H is stable - We'll continue to monitor Metabolic acidosis - Patient's treated with bicarbonate - Neurology is following Colostomy - Colostomy care Unstagable scaral pressure ulcer POA - General surgery is following - Wound vac is in place Afib with RVR - Patient is on amiodarone and diltiazem - But it is controlled currently, patient is on Coumadin and INR is supratherapeutic Troponemia- Type 2 NSTEMI - Cardiology is following, intervention needed at this time Hypokalemia - Repleted Severe Protein calorie malnutrition - We'll consult nutrition Generalized weakness - We'll consult critical therapy once stable Disposition; transferred to MICU. History Interval history: Patient was seen and evaluated this morning, patient was alert and oriented. Patient said he is feeling weak, asking when is he able to walk again. Hospitalist Physical - Physical exam Narrative exam: Not in cardiopulmonary distress. The patient appeared well nourished and normally developed. Vital signs as documented. Head exam is unremarkable. No scleral icterus . Neck is without jugular venous distension, thyromegaly, or carotid bruits. Lungs are clear to auscultation. Cardiac exam reveals irregular rate and Rhythm. Abdominal exam reveals normal bowel sounds, no masses, no organomegaly and no aortic enlargement. Extremities are nonedematous and both femoral and pedal pulses are normal. Sacral decubitus ulcer. 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 No focal weakness. - Constitutional Vitals: Temp Pulse Resp BP Pulse Ox 97.8 F 88 29 H 105/69 100 10/20/18 08:00 10/20/18 08:00 10/20/18 08:00 10/20/18 08:00 10/20/18 08:00 General appearance: Present: mild distress, disheveled Results - Labs CBC & Chem 7: 10/19/18 04:00 10/20/18 04:14 Labs: Laboratory Last Values WBC 24.1 K/mm3 (4.5-11.0) H 10/19/18 04:00 RBC 2.67 M/mm3 (3.65-5.03) L 10/19/18 04:00 Hgb 7.8 gm/dl (11.8-15.2) L 10/19/18 04:00 Hct 23.3 % (35.5-45.6) L 10/19/18 04:00 MCV 87 fl (84-94) 10/19/18 04:00 MCH 29 pg (28-32) 10/19/18 04:00 MCHC 34 % (32-34) 10/19/18 04:00 RDW 17.0 % (13.2-15.2) H 10/19/18 04:00 Plt Count 305 K/mm3 (140-440) 10/19/18 04:00 Add Manual Diff Complete 10/19/18 04:00 Total Counted 100 10/19/18 04:00 Seg Neutrophils % Boat Worker 10/15/18 11:21 Seg Neuts % (Manual) 73.0 % (40.0-70.0) H 10/19/18 04:00 Band Neutrophils % 2.0 % 10/19/18 04:00 Lymphocytes % (Manual) 15.0 % (13.4-35.0) 10/19/18 04:00 Reactive Lymphs % (Man) 0 % 10/19/18 04:00 Monocytes % (Manual) 6.0 % (0.0-7.3) 10/19/18 04:00 Eosinophils % (Manual) 3.0 % (0.0-4.3) 10/19/18 04:00 Basophils % (Manual) 0 % (0.0-1.8) 10/19/18 04:00 Metamyelocytes % 1.0 % 10/19/18 04:00 Myelocytes % 0 % 10/19/18 04:00 Promyelocytes % 0 % 10/19/18 04:00 Blast Cells % 0 % 10/19/18 04:00 Nucleated RBC % Not Reportable 10/19/18 04:00 Seg Neutrophils # Man 17.6 K/mm3 (1.8-7.7) H 10/19/18 04:00 Band Neutrophils # 0.5 K/mm3 10/19/18 04:00 Lymphocytes # (Manual) 3.6 K/mm3 (1.2-5.4) 10/19/18 04:00 Abs React Lymphs (Man) 0.0 K/mm3 10/19/18 04:00 Monocytes # (Manual) 1.4 K/mm3 (0.0-0.8) H 10/19/18 04:00 Eosinophils # (Manual) 0.7 K/mm3 (0.0-0.4) H 10/19/18 04:00 Basophils # (Manual) 0.0 K/mm3 (0.0-0.1) 10/19/18 04:00 Metamyelocytes # 0.2 K/mm3 10/19/18 04:00 Myelocytes # 0.0 K/mm3 10/19/18 04:00 Promyelocytes # 0.0 K/mm3 10/19/18 04:00 Blast Cells # 0.0 K/mm3 10/19/18 04:00 WBC Morphology Not Reportable 10/19/18 04:00 Hypersegmented Neuts Not Reportable 10/19/18 04:00 Hyposegmented Neuts Not Reportable 10/19/18 04:00 Hypogranular Neuts Not Reportable 10/19/18 04:00 Smudge Cells Not Reportable 10/19/18 04:00 Toxic Granulation Not Reportable 10/19/18 04:00 Toxic Vacuolation Not Reportable 10/19/18 04:00 Dohle Bodies Not Reportable 10/19/18 04:00 Pelger-Huet Anomaly Not Reportable 10/19/18 04:00 Lisa Rods Not Reportable 10/19/18 04:00 Platelet Estimate Consistent w auto 10/19/18 04:00 Clumped Platelets Not Reportable 10/19/18 04:00 Plt Clumps, EDTA Not Reportable 10/19/18 04:00 Large Platelets Not Reportable 10/19/18 04:00 Giant Platelets Not Reportable 10/19/18 04:00 Platelet Satelliting Not Reportable 10/19/18 04:00 Plt Morphology Comment Not Reportable 10/19/18 04:00 RBC Morphology Not Reportable 10/19/18 04:00 Dimorphic RBCs Not Reportable 10/19/18 04:00 Polychromasia Few 10/19/18 04:00 Hypochromasia Few 10/19/18 04:00 Poikilocytosis Few 10/19/18 04:00 Anisocytosis 1+ 10/19/18 04:00 Microcytosis Not Reportable 10/19/18 04:00 Macrocytosis Not Reportable 10/19/18 04:00 Spherocytes Not Reportable 10/19/18 04:00 Pappenheimer Bodies Not Reportable 10/19/18 04:00 Sickle Cells Not Reportable 10/19/18 04:00 Target Cells Not Reportable 10/19/18 04:00 Tear Drop Cells Rare 10/19/18 04:00 Ovalocytes Few 10/19/18 04:00 Helmet Cells Not Reportable 10/19/18 04:00 [place] Bodies Not Reportable 10/19/18 04:00 Gunter Rings Not Reportable 10/19/18 04:00 Leslie Cells Not Reportable 10/19/18 04:00 Bite Cells Not Reportable 10/19/18 04:00 Crenated Cell Not Reportable 10/19/18 04:00 Elliptocytes Not Reportable 10/19/18 04:00 Acanthocytes (Spur) Not Reportable 10/19/18 04:00 Rouleaux Not Reportable 10/19/18 04:00 Hemoglobin C Crystals Not Reportable 10/19/18 04:00 Schistocytes Not Reportable 10/19/18 04:00 Malaria parasites Not Reportable 10/19/18 04:00 [place] Bodies Not Reportable 10/19/18 04:00 Hem Pathologist Commnt No 10/19/18 04:00 PT 33.4 Sec. (12.2-14.9) H 10/20/18 04:14 INR 3.24 (0.87-1.13) H 10/20/18 04:14 POC ABG pH 7.380 (7.35-7.45) 10/11/18 17:53 POC ABG pCO2 28.2 (35-45) L 10/11/18 17:53 POC ABG pO2 60 (80-105) L 10/11/18 17:53 POC ABG HCO3 16.7 10/11/18 17:53 POC ABG Total CO2 18 10/11/18 17:53 POC ABG O2 Sat 91 10/11/18 17:53 POC ABG Base Excess -8 10/11/18 17:53 VBG pH 7.226 (7.320-7.420) L 10/11/18 05:21 FiO2 2 % 10/11/18 17:53 Sodium 143 mmol/L (137-145) 10/20/18 04:14 Potassium 3.9 mmol/L (3.6-5.0) 10/20/18 04:14 Chloride 112.5 mmol/L (98-107) H 10/20/18 04:14 Carbon Dioxide 19 mmol/L (22-30) L 10/20/18 04:14 Anion Gap 15 mmol/L 10/20/18 04:14 BUN 13 mg/dL (9-20) 10/20/18 04:14 Creatinine 1.7 mg/dL (0.8-1.5) H 10/20/18 04:14 Estimated GFR 50 ml/min 10/20/18 04:14 BUN/Creatinine Ratio 8 % 10/20/18 04:14 Glucose 107 mg/dL (75-100) H 10/20/18 04:14 POC Glucose 107 (70-105) H 10/20/18 05:20 Lactic Acid 1.50 mmol/L (0.7-2.0) 10/12/18 04:20 Calcium 7.1 mg/dL (8.4-10.2) L 10/20/18 04:14 Phosphorus 4.80 mg/dL (2.5-4.5) H 10/11/18 06:51 Magnesium 1.60 mg/dL (1.7-2.3) L 10/20/18 04:14 Total Bilirubin 0.50 mg/dL (0.1-1.2) 10/17/18 04:52 AST 36 units/L (5-40) 10/17/18 04:52 ALT 10 units/L (7-56) 10/17/18 04:52 Alkaline Phosphatase 219 units/L (35-129) H 10/17/18 04:52 Total Creatine Kinase 933 units/L (55-170) H 10/11/18 17:58 CK-MB (CK-2) 2.8 ng/mL (0.0-4.0) 10/11/18 17:58 CK-MB (CK-2) Rel Index 0.3 (0-4) 10/11/18 17:58 Troponin T 0.116 ng/mL (0.00-0.029) H* 10/11/18 05:21 C-Reactive Protein 6.80 mg/dL (0.00-1.30) H 10/18/18 13:41 Total Protein 5.5 g/dL (6.3-8.2) L 10/17/18 04:52 Albumin 1.3 g/dL (3.9-5) L 10/17/18 04:52 Albumin/Globulin Ratio 0.3 % 10/17/18 04:52 Triglycerides 120 mg/dL (2-149) 10/11/18 05:21 Cholesterol 26 mg/dL (50-199) L 10/11/18 05:21 LDL Cholesterol Direct 4 mg/dL (50-130) L 10/11/18 05:21 HDL Cholesterol 7 mg/dL (40-59) L 10/11/18 05:21 Cholesterol/HDL Ratio 3.71 % 10/11/18 05:21 Urine Color Christine (Yellow) 10/18/18 16:32 Urine Turbidity Cloudy (Clear) 10/18/18 16:32 Urine pH 6.0 (5.0-7.0) 10/18/18 16:32 Ur Specific Jber 1.017 (1.003-1.030) 10/18/18 16:32 Urine Protein 100 mg/dl mg/dL (Negative) 10/18/18 16:32 Urine Glucose (UA) Neg mg/dL (Negative) 10/18/18 16:32 Urine Ketones Tr mg/dL (Negative) 10/18/18 16:32 Urine Blood Mod (Negative) 10/18/18 16:32 Urine Nitrite Neg (Negative) 10/18/18 16:32 Urine Bilirubin Neg (Negative) 10/18/18 16:32 Urine Urobilinogen < 2.0 mg/dL (<2.0) 10/18/18 16:32 Ur Leukocyte Esterase Sm (Negative) 10/18/18 16:32 Urine WBC (Auto) 22.0 /HPF (0.0-6.0) H 10/18/18 16:32 Urine RBC (Auto) 4.0 /HPF (0.0-6.0) 10/18/18 16:32 U Epithel Cells (Auto) 1.0 /HPF (0-13.0) 10/18/18 16:32 Urine Bacteria (Auto) 1+ /HPF (Negative) 10/18/18 16:32 Urine WBC Clumps 3+ /HPF 10/11/18 Unknown Amorphous Crystals Few 10/18/18 16:32 Urine Mucus Few /HPF 10/18/18 16:32 Random Vancomycin 5.7 ug/mL (0-40.0) 10/13/18 05:30 Blood Type A POSITIVE 10/11/18 09:05 Antibody Screen Negative 10/11/18 09:05 Crossmatch See Detail 10/11/18 09:05 Nutrition/Malnutrition Assess - Dietary Evaluation Nutrition/Malnutrition Findings: Nutrition Notes Start: 10/12/18 12:55 Freq: Status: Active Protocol: Document 10/19/18 13:46 TW (Rec: 10/19/18 14:15 TW [id number]) Co-Sign 10/19/18 13:46 OL Nutrition Notes Initial or Follow up Reassessment Current Diagnosis Acute Kidney Injury Diabetes Sepsis Hypertension Other Pertinent Diagnosis Sacral pressure ulcer Current Diet Consistent CHO Labs/Tests K 3.5 Pertinent Medications Reviewed Height 6 ft Weight 96.3 kg [place] Body Weight (kg) 80.90 BMI 28.8 Subjective/Other Information F/U for intakes. Pt reports eating >75% of meals and drinking 100% of ONS. Pt willing to try Norm mixed w/ diet gingerale. Burn Absent Trauma Absent Current % PO Good (75-100%) #1 Nutrition Diagnosis Inadequate oral intake As Evidenced by Signs and Symptoms Pt reports eating 75% of meals and 100% of ONS Diagnosis Progress(for reassessment Improved documentation) Is patient on ventilator? No Is Patient Ambulatory and/or Out of Bed No REE-([facility]-confined to bed) 9669.429 Calculation Used for Recommendations [facility] Additional Notes Pro: 100-167g/day (1.2-2 g/kg BW) Fluid: 1 ml/kcal Nutrition Intervention Change Diet Order: Continue CHO consistent Add Supplement/Snack (indicate name/kcal Glucerna BID /protein ) Norm BID 190 kcal 5 g pro Provides kCal: 440 Provides Protein (gm) 20 Goal #1 PO intake of meals to meet at least 75% of nutrient needs Goal #2 Wound healing Follow-Up By: 10/24/18 Additional Comments F/U: intakes (meals/ONS)
--- NOTE | 2018-10-20 13:33 | Progress Note ---
Assessment and Plan Impression: * Acute kidney secondary to ATN * Sepsis - ?urinary source --Blood cx - NGTD --Urine cx - greater than 2 organisms * Metabolic acidosis secondary to lactic acidosis * UTI * Hypokalemia * hypomagnesemia * Anemia Plan: * Serum creatinine noted to be somewhat higher today. He is however currently nonoliguric * Continue po sodium bicarb * Replete K prn - * Abx per primary team * Transfusion per primary team - pRBC transfusion in progress * Replete lytes prn * Dose medications for renal function * Avoid potential nephrotoxins Subjective Date of service: 10/20/18 Principal diagnosis: Acute Toxic metabolic encephalopathy; Septic Shock; Severe Sepsis; DKA Interval history: Patient has been transferred out of ICU. Awake and alert. Comfortable. Denies any shortness of breath. Indwelling Martinez catheter in place Objective - Vital Signs Vital signs: Vital Signs - 12hr 10/20/18 10/20/18 10/20/18 01:30 01:41 01:51 Temperature Pulse Rate 90 90 89 Pulse Rate [ Anterior Bilateral Throughout] Pulse Rate [ Apical] Pulse Rate [ From Monitor] Pulse Rate [ Left Dorsalis Pedis] Pulse Rate [ Left Radial] Pulse Rate [ Right Dorsalis Pedis] Pulse Rate [ Right Radial] Respiratory 41 H 35 H 36 H Rate Respiratory Rate [Anterior Bilateral Throughout] Blood Pressure 97/68 97/68 99/64 O2 Sat by Pulse 96 95 Oximetry 10/20/18 10/20/18 10/20/18 02:00 02:11 02:21 Temperature Pulse Rate 91 H 88 89 Pulse Rate [ Anterior Bilateral Throughout] Pulse Rate [ Apical] Pulse Rate [ From Monitor] Pulse Rate [ Left Dorsalis Pedis] Pulse Rate [ Left Radial] Pulse Rate [ Right Dorsalis Pedis] Pulse Rate [ Right Radial] Respiratory 40 H 38 H 40 H Rate Respiratory Rate [Anterior Bilateral Throughout] Blood Pressure 97/68 103/67 103/67 O2 Sat by Pulse 96 96 96 Oximetry 10/20/18 10/20/18 10/20/18 02:30 02:41 02:51 Temperature Pulse Rate 93 H 88 88 Pulse Rate [ Anterior Bilateral Throughout] Pulse Rate [ Apical] Pulse Rate [ From Monitor] Pulse Rate [ Left Dorsalis Pedis] Pulse Rate [ Left Radial] Pulse Rate [ Right Dorsalis Pedis] Pulse Rate [ Right Radial] Respiratory 34 H 26 H 28 H Rate Respiratory Rate [Anterior Bilateral Throughout] Blood Pressure 108/74 108/74 108/74 O2 Sat by Pulse 100 100 100 Oximetry 10/20/18 10/20/18 10/20/18 03:00 03:11 03:20 Temperature 98.2 F Pulse Rate 87 89 88 Pulse Rate [ Anterior Bilateral Throughout] Pulse Rate [ 96 H Apical] Pulse Rate [ 96 H From Monitor] Pulse Rate [ Left Dorsalis Pedis] Pulse Rate [ Left Radial] Pulse Rate [ Right Dorsalis Pedis] Pulse Rate [ Right Radial] Respiratory 33 H 28 H 25 H Rate Respiratory Rate [Anterior Bilateral Throughout] Blood Pressure 103/68 103/68 O2 Sat by Pulse 100 99 100 Oximetry 10/20/18 10/20/18 10/20/18 03:21 03:30 03:41 Temperature Pulse Rate 88 85 90 Pulse Rate [ Anterior Bilateral Throughout] Pulse Rate [ Apical] Pulse Rate [ From Monitor] Pulse Rate [ Left Dorsalis Pedis] Pulse Rate [ Left Radial] Pulse Rate [ Right Dorsalis Pedis] Pulse Rate [ Right Radial] Respiratory 28 H 27 H 30 H Rate Respiratory Rate [Anterior Bilateral Throughout] Blood Pressure 103/68 95/60 95/60 O2 Sat by Pulse 100 98 97 Oximetry 10/20/18 10/20/18 10/20/18 03:51 04:00 04:10 Temperature Pulse Rate 86 85 86 Pulse Rate [ Anterior Bilateral Throughout] Pulse Rate [ Apical] Pulse Rate [ From Monitor] Pulse Rate [ Left Dorsalis Pedis] Pulse Rate [ Left Radial] Pulse Rate [ Right Dorsalis Pedis] Pulse Rate [ Right Radial] Respiratory 33 H 27 H 31 H Rate Respiratory Rate [Anterior Bilateral Throughout] Blood Pressure 95/60 99/64 103/68 O2 Sat by Pulse 99 98 99 Oximetry 10/20/18 10/20/18 10/20/18 04:21 04:30 04:41 Temperature Pulse Rate 89 86 87 Pulse Rate [ Anterior Bilateral Throughout] Pulse Rate [ Apical] Pulse Rate [ From Monitor] Pulse Rate [ Left Dorsalis Pedis] Pulse Rate [ Left Radial] Pulse Rate [ Right Dorsalis Pedis] Pulse Rate [ Right Radial] Respiratory 28 H 31 H 30 H Rate Respiratory Rate [Anterior Bilateral Throughout] Blood Pressure 99/64 98/66 98/66 O2 Sat by Pulse 99 100 100 Oximetry 10/20/18 10/20/18 10/20/18 04:51 05:00 05:11 Temperature Pulse Rate 88 87 85 Pulse Rate [ Anterior Bilateral Throughout] Pulse Rate [ Apical] Pulse Rate [ From Monitor] Pulse Rate [ Left Dorsalis Pedis] Pulse Rate [ Left Radial] Pulse Rate [ Right Dorsalis Pedis] Pulse Rate [ Right Radial] Respiratory 33 H 34 H 16 Rate Respiratory Rate [Anterior Bilateral Throughout] Blood Pressure 98/66 96/64 96/64 O2 Sat by Pulse 98 99 100 Oximetry 10/20/18 10/20/18 10/20/18 05:21 05:23 05:30 Temperature Pulse Rate 86 86 87 Pulse Rate [ Anterior Bilateral Throughout] Pulse Rate [ 88 Apical] Pulse Rate [ 88 From Monitor] Pulse Rate [ 88 Left Dorsalis Pedis] Pulse Rate [ 88 Left Radial] Pulse Rate [ 88 Right Dorsalis Pedis] Pulse Rate [ 88 Right Radial] Respiratory 30 H 25 H 30 H Rate Respiratory Rate [Anterior Bilateral Throughout] Blood Pressure 96/64 103/68 O2 Sat by Pulse 100 100 100 Oximetry 10/20/18 10/20/18 10/20/18 05:31 05:41 05:51 Temperature Pulse Rate 87 86 87 Pulse Rate [ Anterior Bilateral Throughout] Pulse Rate [ Apical] Pulse Rate [ From Monitor] Pulse Rate [ Left Dorsalis Pedis] Pulse Rate [ Left Radial] Pulse Rate [ Right Dorsalis Pedis] Pulse Rate [ Right Radial] Respiratory 40 H 24 Rate Respiratory Rate [Anterior Bilateral Throughout] Blood Pressure 103/68 103/68 103/68 O2 Sat by Pulse 99 100 Oximetry 10/20/18 10/20/18 10/20/18 06:00 06:10 06:21 Temperature Pulse Rate 87 91 H 86 Pulse Rate [ Anterior Bilateral Throughout] Pulse Rate [ Apical] Pulse Rate [ From Monitor] Pulse Rate [ Left Dorsalis Pedis] Pulse Rate [ Left Radial] Pulse Rate [ Right Dorsalis Pedis] Pulse Rate [ Right Radial] Respiratory 30 H 28 H 29 H Rate Respiratory Rate [Anterior Bilateral Throughout] Blood Pressure 119/72 119/72 O2 Sat by Pulse 98 99 99 Oximetry 10/20/18 10/20/18 10/20/18 06:30 06:41 06:51 Temperature Pulse Rate 86 85 86 Pulse Rate [ Anterior Bilateral Throughout] Pulse Rate [ Apical] Pulse Rate [ From Monitor] Pulse Rate [ Left Dorsalis Pedis] Pulse Rate [ Left Radial] Pulse Rate [ Right Dorsalis Pedis] Pulse Rate [ Right Radial] Respiratory 29 H 30 H 30 H Rate Respiratory Rate [Anterior Bilateral Throughout] Blood Pressure 102/70 102/70 102/70 O2 Sat by Pulse 99 99 99 Oximetry 10/20/18 10/20/18 10/20/18 07:00 07:11 07:21 Temperature Pulse Rate 86 85 85 Pulse Rate [ Anterior Bilateral Throughout] Pulse Rate [ Apical] Pulse Rate [ From Monitor] Pulse Rate [ Left Dorsalis Pedis] Pulse Rate [ Left Radial] Pulse Rate [ Right Dorsalis Pedis] Pulse Rate [ Right Radial] Respiratory 30 H 30 H 29 H Rate Respiratory Rate [Anterior Bilateral Throughout] Blood Pressure 107/68 107/68 107/68 O2 Sat by Pulse 98 98 98 Oximetry 10/20/18 10/20/18 10/20/18 07:30 07:41 07:47 Temperature Pulse Rate 87 92 H Pulse Rate [ Anterior Bilateral Throughout] Pulse Rate [ Apical] Pulse Rate [ From Monitor] Pulse Rate [ Left Dorsalis Pedis] Pulse Rate [ Left Radial] Pulse Rate [ Right Dorsalis Pedis] Pulse Rate [ Right Radial] Respiratory 24 32 H Rate Respiratory Rate [Anterior Bilateral Throughout] Blood Pressure 109/71 109/71 O2 Sat by Pulse 96 98 99 Oximetry 10/20/18 10/20/18 10/20/18 07:48 07:51 07:58 Temperature Pulse Rate 91 H Pulse Rate [ 92 H 92 H Anterior Bilateral Throughout] Pulse Rate [ Apical] Pulse Rate [ From Monitor] Pulse Rate [ Left Dorsalis Pedis] Pulse Rate [ Left Radial] Pulse Rate [ Right Dorsalis Pedis] Pulse Rate [ Right Radial] Respiratory 26 H Rate Respiratory 20 20 Rate [Anterior Bilateral Throughout] Blood Pressure 109/71 O2 Sat by Pulse 100 Oximetry 10/20/18 10/20/18 10/20/18 08:00 08:11 08:21 Temperature 97.8 F Pulse Rate 88 89 88 Pulse Rate [ Anterior Bilateral Throughout] Pulse Rate [ Apical] Pulse Rate [ 88 From Monitor] Pulse Rate [ Left Dorsalis Pedis] Pulse Rate [ Left Radial] Pulse Rate [ Right Dorsalis Pedis] Pulse Rate [ Right Radial] Respiratory 29 H 31 H 30 H Rate Respiratory Rate [Anterior Bilateral Throughout] Blood Pressure 105/69 105/69 105/69 O2 Sat by Pulse 100 98 97 Oximetry 10/20/18 10/20/1819 08:30 08:41 08:51 Temperature Pulse Rate 92 H 93 H 89 Pulse Rate [ Anterior Bilateral Throughout] Pulse Rate [ Apical] Pulse Rate [ From Monitor] Pulse Rate [ Left Dorsalis Pedis] Pulse Rate [ Left Radial] Pulse Rate [ Right Dorsalis Pedis] Pulse Rate [ Right Radial] Respiratory 22 15 42 H Rate Respiratory Rate [Anterior Bilateral Throughout] Blood Pressure 108/74 108/74 108/74 O2 Sat by Pulse 100 99 98 Oximetry 10/20/18 10/20/18 10/20/18 09:00 09:11 09:21 Temperature Pulse Rate 90 90 91 H Pulse Rate [ Anterior Bilateral Throughout] Pulse Rate [ Apical] Pulse Rate [ From Monitor] Pulse Rate [ Left Dorsalis Pedis] Pulse Rate [ Left Radial] Pulse Rate [ Right Dorsalis Pedis] Pulse Rate [ Right Radial] Respiratory 14 35 H 25 H Rate Respiratory Rate [Anterior Bilateral Throughout] Blood Pressure 110/69 110/69 110/69 O2 Sat by Pulse 99 98 98 Oximetry 10/20/18 10/20/18 10/20/18 09:30 09:41 09:51 Temperature Pulse Rate 91 H 96 H 92 H Pulse Rate [ Anterior Bilateral Throughout] Pulse Rate [ Apical] Pulse Rate [ From Monitor] Pulse Rate [ Left Dorsalis Pedis] Pulse Rate [ Left Radial] Pulse Rate [ Right Dorsalis Pedis] Pulse Rate [ Right Radial] Respiratory 27 H 33 H 31 H Rate Respiratory Rate [Anterior Bilateral Throughout] Blood Pressure 107/70 110/69 110/69 O2 Sat by Pulse 98 97 98 Oximetry 10/20/18 10/20/18 10/20/18 10:00 10:11 10:21 Temperature Pulse Rate 92 H 91 H 90 Pulse Rate [ Anterior Bilateral Throughout] Pulse Rate [ Apical] Pulse Rate [ From Monitor] Pulse Rate [ Left Dorsalis Pedis] Pulse Rate [ Left Radial] Pulse Rate [ Right Dorsalis Pedis] Pulse Rate [ Right Radial] Respiratory 30 H 31 H 34 H Rate Respiratory Rate [Anterior Bilateral Throughout] Blood Pressure 103/68 103/68 103/68 O2 Sat by Pulse 98 96 97 Oximetry 10/20/18 10/20/18 10/20/18 10:30 10:41 10:51 Temperature Pulse Rate 92 H 89 89 Pulse Rate [ Anterior Bilateral Throughout] Pulse Rate [ Apical] Pulse Rate [ From Monitor] Pulse Rate [ Left Dorsalis Pedis] Pulse Rate [ Left Radial] Pulse Rate [ Right Dorsalis Pedis] Pulse Rate [ Right Radial] Respiratory 21 32 H 35 H Rate Respiratory Rate [Anterior Bilateral Throughout] Blood Pressure 106/72 106/72 106/72 O2 Sat by Pulse 97 96 96 Oximetry 10/20/18 10/20/18 10/20/18 11:00 11:11 11:21 Temperature Pulse Rate 89 88 90 Pulse Rate [ Anterior Bilateral Throughout] Pulse Rate [ Apical] Pulse Rate [ From Monitor] Pulse Rate [ Left Dorsalis Pedis] Pulse Rate [ Left Radial] Pulse Rate [ Right Dorsalis Pedis] Pulse Rate [ Right Radial] Respiratory 33 H 29 H 33 H Rate Respiratory Rate [Anterior Bilateral Throughout] Blood Pressure 100/64 100/64 100/64 O2 Sat by Pulse 96 96 94 Oximetry 10/20/18 10/20/18 10/20/18 11:30 11:41 11:51 Temperature Pulse Rate 89 89 89 Pulse Rate [ Anterior Bilateral Throughout] Pulse Rate [ Apical] Pulse Rate [ From Monitor] Pulse Rate [ Left Dorsalis Pedis] Pulse Rate [ Left Radial] Pulse Rate [ Right Dorsalis Pedis] Pulse Rate [ Right Radial] Respiratory 29 H 38 H 35 H Rate Respiratory Rate [Anterior Bilateral Throughout] Blood Pressure 103/68 103/68 103/68 O2 Sat by Pulse 95 96 98 Oximetry 10/20/18 10/20/18 12:00 12:11 Temperature 98.2 F Pulse Rate 90 93 H Pulse Rate [ Anterior Bilateral Throughout] Pulse Rate [ Apical] Pulse Rate [ From Monitor] Pulse Rate [ Left Dorsalis Pedis] Pulse Rate [ Left Radial] Pulse Rate [ Right Dorsalis Pedis] Pulse Rate [ Right Radial] Respiratory 40 H 20 Rate Respiratory Rate [Anterior Bilateral Throughout] Blood Pressure 101/71 101/71 O2 Sat by Pulse 98 97 Oximetry - General Appearance General appearance: well-developed, well-nourished, appears stated age EENT: PERRL, mucous membranes moist Neck: no JVD, no thyromegaly, no carotid bruit, supple Respiratory: Present: Clear to Ascultation Cardiology: regular, normal heart rate, S1S2, no murmurs Gastrointestinal: distended, other (colostomy bag in place. Tympanitic to pe rcussion) Integumentary: other (no edema) - Lab 10/19/18 04:00 10/20/18 04:14 Most recent lab results Calcium 7.1 mg/dL (8.4-10.2) L 10/20/18 04:14 Phosphorus 4.80 mg/dL (2.5-4.5) H 10/11/18 06:51 Magnesium 1.60 mg/dL (1.7-2.3) L 10/20/18 04:14 Medications & Allergies - Medications Allergies/Adverse Reactions: Allergies No Known Allergies Allergy (Unverified 10/11/18 05:00) Home Medications: Home Medications Medication Instructions Recorded Confirmed Last Taken Type Acetaminophen [Acetaminophen ER] 650 mg PO Q6H PRN 10/11/18 10/11/18 Unknown History Allopurinol 300 mg PO QDAY 10/11/18 10/11/18 Unknown History Amlodipine Besylate [Norvasc] 5 mg PO DAILY 10/11/18 10/11/18 Unknown History Atorvastatin [Lipitor Tab] 80 mg PO QHS 10/11/18 10/11/18 Unknown History Calcium Carbonate [Calcium Antacid] 200 mg PO TID 10/11/18 10/11/18 Unknown History Collagenase Clostridium Hist. 1 applic TP BID 10/11/18 10/11/18 Unknown History [Santyl] Collagenase Clostridium Hist. 1 applic TP QPM 10/11/18 10/11/18 Unknown History [Santyl] HYDROcodone/APAP 7.5-325 [Hope 1 each PO Q4HR PRN 10/11/18 10/11/18 Unknown History 7.5/325] Metformin HCl [Glucophage] 500 mg PO BID 10/11/18 10/11/18 Unknown History Mirtazapine [Remeron] 15 mg PO HS 10/11/18 10/11/18 Unknown History Sulfamethoxazole/Trimethoprim 1 each PO BID 10/11/18 10/11/18 Unknown History [Bactrim DS TAB] Active Medications: Generic Name Dose Route Start Last Admin Trade Name Freq PRN Reason Stop Dose Admin Acetaminophen 650 mg 10/12/18 06:45 Tylenol PO Q4H PRN Pain, Mild (1-3) Albuterol 2.5 mg 10/11/18 08:21 Proventil IH Q3HRT PRN Shortness Of Breath Albuterol/Ipratropium 1 ampul 10/20/18 08:00 10/20/18 07:47 Duoneb *Not For Prn Use* IH 1 ampul TIDRT FRANCIS[place] Administration Amiodarone HCl 200 mg 10/18/18 22:00 10/20/18 09:56 Cordarone PO 200 mg BID FRANCISCO Administration Dextrose 0 ml 10/11/18 06:14 10/12/18 01:48 D50w (25gm) Syringe IV 20 ml ONCE PRN Administration Hypoglycemia Diltiazem HCl 30 mg 10/13/18 18:00 10/20/18 05:31 Cardizem PO 30 mg Q6HR FR[place]IS[place] Administration Norepinephrine 4 mg in 250 mls @ 7.5 mls/hr 10/15/18 17:00 10/18/18 18:14 Levophed Drip 4 Mg/Ns 250 Ml IV 0 mcg/min TITR FRANCISCO 0 mls/hr Titration Protocol 2 MCG/MIN Ceftriaxone Sodium 2 gm in 100 mls @ 200 mls/hr 10/17/18 10:00 10/20/18 09:55 Rocephin/Ns 2 Gm/100 Ml IV 11/03/18 23:59 200 mls/hr Q24HR FRANCIS[place] Administration Insulin Glargine 20 units 10/13/18 22:00 10/19/18 21:51 Lantus SUB-Q 20 units QHS FRANCISCO Administration Insulin Human Lispro 0 unit 10/12/18 09:00 10/20/18 12:55 Humalog SUB-Q Not Given Q6HR FR[place]IS[place] Protocol Metronidazole 500 mg 10/17/18 14:00 10/20/18 05:32 Flagyl PO 11/03/18 23:59 500 mg Q8HR FR[place]IS[place] Administration Morphine Sulfate 4 mg 10/12/18 22:30 10/16/18 02:10 Morphine IV 4 mg Q4H PRN Administration Pain , Severe (7-10) Ondansetron HCl 4 mg 10/11/18 09:30 Zofran IV Q8H PRN Nausea And Vomiting Pantoprazole Sodium 40 mg 10/14/18 10:00 10/20/18 09:56 Protonix PO 40 mg QDAY FR[place] Administration Sodium Bicarbonate 1,300 mg 10/15/18 13:00 10/20/18 09:56 Sodium Bicarbonate PO 1,300 mg BID FR[place]IS[place] Administration Sodium Chloride 10 ml 10/11/18 10:00 10/20/18 09:56 Sodium Chloride Flush Syringe 10 Ml IV 10 ml BID [place]IS[place] Administration Sodium Chloride 10 ml 10/11/18 09:00 Sodium Chloride Flush Syringe 10 Ml IV PRN PRN LINE FLUSH
--- NOTE | 2018-10-20 16:04 | Event Note ---
Date: 10/20/18 Will probably need chronic suarez catheter to allow for sacral decubitus ulcer care and healing.
--- NOTE | 2018-10-20 17:14 | XRay Report ---
FINAL REPORT EXAM: XR CHEST 1V AP HISTORY: Pulmonary edema TECHNIQUE: Frontal portable examination of the chest PRIORS: 10/15/2018 FINDINGS: A right venous catheter remains in place with distal tip near the cavoatrial junction region. Significantly smaller right lower lung infiltrate. Left lung relatively clear. Right pleural effusion no longer visible on this exam. No pneumothorax or left pleural effusion. Cardiac silhouette size slightly enlarged without vascular congestion. IMPRESSION: Significantly smaller right lower lung infiltrate Right pleural effusion no longer visible on this exam Slight cardiomegaly without vascular congestion
[2018-10-21] MEDS: LANTUS SUB-Q SCH
[2018-10-21 05:51] LABS: Hematocrit 25.6 % (35.5-45.6); Hemoglobin 8.3 gm/dl (11.8-15.2); Mean Corpuscular HGB Conc 32 % (32-34); Mean Corpuscular Volume 92 fl (84-94); Platelet Count 370 K/mm3 (140-440); Red Blood Count 2.79 M/mm3 (3.65-5.03); Red Cell Distribution Width 18.5 % (13.2-15.2)
[2018-10-21 05:58] LABS: INR 3.22 (0.87-1.13)
[2018-10-21 06:02] LABS: Calcium 7.2 mg/dL (8.4-10.2)
[2018-10-21 07:17] LABS: Band Neutrophils # (Manual) 0.2 K/mm3; Basophils % (Manual) 0 % (0.0-1.8); Eosinophils % (Manual) 0 % (0.0-4.3); Total Cells Counted 100
[2018-10-21 07:18] LABS: Anisocytosis 1+; Hypochromasia Few; Ovalocytes Few; Tear Drop Cells Few
[2018-10-21] MEDS: HumaLOG SUB-Q SCH ×3 (07:57→12:00)
[2018-10-21] MEDS: CARDIZEM PO SCH ×3 (08:07→11:05)
[2018-10-21] MEDS: FLAGYL PO SCH ×3 (08:07→22:00)
[2018-10-21] MEDS: DUONEB *Not for PRN Use IH SCH ×3 (09:45→19:46)
[2018-10-21] MEDS: SODIUM BICARBONATE PO SCH ×2 (11:05→22:00)
[2018-10-21] MEDS: ROCEPHIN/NS 2 GM/100 ML 2 GM/100 ML BAG IV SCH (11:05)
[2018-10-21] MEDS: PROTONIX PO SCH (11:06)
[2018-10-21] MEDS: CORDARONE PO SCH ×2 (11:06→22:00)
--- NOTE | 2018-10-21 11:24 | Progress Note ---
Assessment and Plan Impression: * Acute kidney secondary to ATN * Sepsis - ?urinary source --Blood cx - NGTD --Urine cx - greater than 2 organisms * Metabolic acidosis secondary to lactic acidosis * UTI * Hypokalemia * hypomagnesemia * Anemia Plan: * Serum creatinine noted to be somewhat higher today. He is however currently nonoliguric * Blood pressure is noted to be low and he is also acidotic. * Add IV fluid with bicarbonate * Replete K prn - * Abx per primary team * Transfusion per primary team - pRBC transfusion in progress * Replete lytes prn * Dose medications for renal function * Avoid potential nephrotoxins Subjective Date of service: 10/21/18 Principal diagnosis: Acute Toxic metabolic encephalopathy; Septic Shock; Severe Sepsis; DKA Interval history: Patient is comfortable this morning. Denies any shortness of breath. No nausea or vomiting. Objective - Vital Signs Vital signs: Vital Signs - 12hr 10/20/18 10/20/18 10/20/18 23:30 23:41 23:51 Temperature Pulse Rate Pulse Rate [ Anterior Bilateral Throughout] Pulse Rate [ Apical] Pulse Rate [ From Monitor] Respiratory 40 H 41 H 43 H Rate Respiratory Rate [Anterior Bilateral Throughout] Blood Pressure 107/73 107/73 107/73 O2 Sat by Pulse 93 91 89 Oximetry 10/21/18 10/21/18 10/21/18 00:00 00:01 00:11 Temperature 99 F Pulse Rate 177 H Pulse Rate [ Anterior Bilateral Throughout] Pulse Rate [ 104 H Apical] Pulse Rate [ 104 H From Monitor] Respiratory 21 48 H 46 H Rate Respiratory Rate [Anterior Bilateral Throughout] Blood Pressure 104/49 104/49 O2 Sat by Pulse 93 97 91 Oximetry 10/21/18 10/21/18 10/21/18 00:21 00:31 00:41 Temperature Pulse Rate Pulse Rate [ Anterior Bilateral Throughout] Pulse Rate [ Apical] Pulse Rate [ From Monitor] Respiratory 51 H 48 H 36 H Rate Respiratory Rate [Anterior Bilateral Throughout] Blood Pressure 104/49 104/49 104/49 O2 Sat by Pulse 90 89 91 Oximetry 10/21/18 10/21/18 10/21/18 00:51 01:01 01:11 Temperature Pulse Rate 105 H 96 H 94 H Pulse Rate [ Anterior Bilateral Throughout] Pulse Rate [ Apical] Pulse Rate [ From Monitor] Respiratory 14 44 H 43 H Rate Respiratory Rate [Anterior Bilateral Throughout] Blood Pressure 104/49 121/87 121/87 O2 Sat by Pulse 93 97 97 Oximetry 10/21/18 10/21/18 10/21/18 01:21 01:31 01:41 Temperature Pulse Rate 96 H 96 H 118 H Pulse Rate [ Anterior Bilateral Throughout] Pulse Rate [ Apical] Pulse Rate [ From Monitor] Respiratory 58 H 37 H 41 H Rate Respiratory Rate [Anterior Bilateral Throughout] Blood Pressure 121/87 121/87 121/87 O2 Sat by Pulse 97 95 96 Oximetry 10/21/18 10/21/18 10/21/18 01:51 02:00 02:11 Temperature Pulse Rate 95 H 96 H Pulse Rate [ Anterior Bilateral Throughout] Pulse Rate [ Apical] Pulse Rate [ From Monitor] Respiratory 38 H 16 19 Rate Respiratory Rate [Anterior Bilateral Throughout] Blood Pressure 121/87 111/83 121/87 O2 Sat by Pulse 96 96 90 Oximetry 10/21/18 10/21/18 10/21/18 02:21 02:31 02:41 Temperature Pulse Rate 94 H 95 H 96 H Pulse Rate [ Anterior Bilateral Throughout] Pulse Rate [ Apical] Pulse Rate [ From Monitor] Respiratory 32 H 42 H 44 H Rate Respiratory Rate [Anterior Bilateral Throughout] Blood Pressure 121/87 121/87 111/83 O2 Sat by Pulse 89 89 92 Oximetry 10/21/18 10/21/18 10/21/18 02:51 03:00 03:11 Temperature Pulse Rate 96 H 95 H 96 H Pulse Rate [ Anterior Bilateral Throughout] Pulse Rate [ Apical] Pulse Rate [ From Monitor] Respiratory 44 H 33 H 47 H Rate Respiratory Rate [Anterior Bilateral Throughout] Blood Pressure 111/83 118/78 118/78 O2 Sat by Pulse 93 91 90 Oximetry 10/21/18 10/21/18 10/21/18 03:20 03:31 03:41 Temperature Pulse Rate 95 H 96 H 96 H Pulse Rate [ Anterior Bilateral Throughout] Pulse Rate [ Apical] Pulse Rate [ From Monitor] Respiratory 38 H 41 H 31 H Rate Respiratory Rate [Anterior Bilateral Throughout] Blood Pressure 118/78 118/78 118/78 O2 Sat by Pulse 89 91 92 Oximetry 10/21/18 10/21/18 10/21/18 03:51 04:00 04:11 Temperature 98.6 F Pulse Rate 94 H 95 H 95 H Pulse Rate [ Anterior Bilateral Throughout] Pulse Rate [ 97 H Apical] Pulse Rate [ 97 H From Monitor] Respiratory 46 H 41 H 49 H Rate Respiratory Rate [Anterior Bilateral Throughout] Blood Pressure 118/78 113/80 118/78 O2 Sat by Pulse 92 93 91 Oximetry 10/21/18 10/21/18 10/21/18 04:21 04:31 04:41 Temperature Pulse Rate 95 H 98 H 95 H Pulse Rate [ Anterior Bilateral Throughout] Pulse Rate [ Apical] Pulse Rate [ From Monitor] Respiratory 41 H 19 26 H Rate Respiratory Rate [Anterior Bilateral Throughout] Blood Pressure 118/78 118/78 118/78 O2 Sat by Pulse 92 92 93 Oximetry 10/21/18 10/21/18 10/21/18 04:51 05:01 05:11 Temperature Pulse Rate 95 H 95 H 98 H Pulse Rate [ Anterior Bilateral Throughout] Pulse Rate [ Apical] Pulse Rate [ From Monitor] Respiratory 21 22 34 H Rate Respiratory Rate [Anterior Bilateral Throughout] Blood Pressure 118/78 118/78 118/78 O2 Sat by Pulse 90 95 92 Oximetry 10/21/18 10/21/18 10/21/18 05:21 05:31 05:41 Temperature Pulse Rate 92 H 95 H 93 H Pulse Rate [ Anterior Bilateral Throughout] Pulse Rate [ Apical] Pulse Rate [ From Monitor] Respiratory 21 26 H 42 H Rate Respiratory Rate [Anterior Bilateral Throughout] Blood Pressure 118/78 118/78 118/78 O2 Sat by Pulse 91 88 90 Oximetry 10/21/18 10/21/18 10/21/18 05:51 06:00 08:08 Temperature Pulse Rate 93 H 91 H 91 H Pulse Rate [ Anterior Bilateral Throughout] Pulse Rate [ Apical] Pulse Rate [ From Monitor] Respiratory 39 H 34 H Rate Respiratory Rate [Anterior Bilateral Throughout] Blood Pressure 118/78 105/68 106/73 O2 Sat by Pulse 87 93 Oximetry 10/21/18 10/21/18 10/21/18 09:44 09:45 10:05 Temperature Pulse Rate Pulse Rate [ 95 H 93 H Anterior Bilateral Throughout] Pulse Rate [ Apical] Pulse Rate [ From Monitor] Respiratory Rate Respiratory 23 24 Rate [Anterior Bilateral Throughout] Blood Pressure O2 Sat by Pulse 96 Oximetry 10/21/18 11:05 Temperature Pulse Rate 91 H Pulse Rate [ Anterior Bilateral Throughout] Pulse Rate [ Apical] Pulse Rate [ From Monitor] Respiratory Rate Respiratory Rate [Anterior Bilateral Throughout] Blood Pressure 109/50 O2 Sat by Pulse Oximetry - General Appearance General appearance: well-developed, well-nourished, appears stated age EENT: PERRL, mucous membranes moist Neck: no JVD, no thyromegaly, no carotid bruit, supple Respiratory: Present: Clear to Ascultation Cardiology: regular, normal heart rate, S1S2, no murmurs Gastrointestinal: normoactive bowel sounds, other (colostomy bag in place) Integumentary: other (1+ edema. Patient also has a wound VAC from his sacral wound) - Lab 10/21/18 05:11 10/21/18 05:11 Most recent lab results Calcium 7.2 mg/dL (8.4-10.2) L 10/21/18 05:11 Phosphorus 4.80 mg/dL (2.5-4.5) H 10/11/18 06:51 Magnesium 1.60 mg/dL (1.7-2.3) L 10/20/18 04:14 Medications & Allergies - Medications Allergies/Adverse Reactions: Allergies No Known Allergies Allergy (Unverified 10/11/18 05:00) Home Medications: Home Medications Medication Instructions Recorded Confirmed Last Taken Type Acetaminophen [Acetaminophen ER] 650 mg PO Q6H PRN 10/11/18 10/11/18 Unknown History Allopurinol 300 mg PO QDAY 10/11/18 10/11/18 Unknown History Amlodipine Besylate [Norvasc] 5 mg PO DAILY 10/11/18 10/11/18 Unknown History Atorvastatin [Lipitor Tab] 80 mg PO QHS 10/11/18 10/11/18 Unknown History Calcium Carbonate [Calcium Antacid] 200 mg PO TID 10/11/18 10/11/18 Unknown History Collagenase Clostridium Hist. 1 applic TP BID 10/11/18 10/11/18 Unknown History [Santyl] Collagenase Clostridium Hist. 1 applic TP QPM 10/11/18 10/11/18 Unknown History [Santyl] HYDROcodone/APAP 7.5-325 [Cammal 1 each PO Q4HR PRN 10/11/18 10/11/18 Unknown History 7.5/325] Metformin HCl [Glucophage] 500 mg PO BID 10/11/18 10/11/18 Unknown History Mirtazapine [Remeron] 15 mg PO HS 10/11/18 10/11/18 Unknown History Sulfamethoxazole/Trimethoprim 1 each PO BID 10/11/18 10/11/18 Unknown History [Bactrim DS TAB] Active Medications: Generic Name Dose Route Start Last Admin Trade Name Freq PRN Reason Stop Dose Admin Acetaminophen 650 mg 10/12/18 06:45 Tylenol PO Q4H PRN Pain, Mild (1-3) Albuterol 2.5 mg 10/11/18 08:21 Proventil IH Q3HRT PRN Shortness Of Breath Albuterol/Ipratropium 1 ampul 10/20/18 08:00 10/21/18 09:45 Duoneb *Not For Prn Use* IH 1 ampul TIDRT FRANCISCO Administration Amiodarone HCl 200 mg 10/18/18 22:00 10/21/18 11:06 Cordarone PO 200 mg BID FRANCISCO Administration Dextrose 0 ml 10/11/18 06:14 10/12/18 01:48 D50w (25gm) Syringe IV 20 ml ONCE PRN Administration Hypoglycemia Diltiazem HCl 30 mg 10/13/18 18:00 10/21/18 11:05 Cardizem PO 30 mg Q6HR FRANCISCO Administration Norepinephrine 4 mg in 250 mls @ 7.5 mls/hr 10/15/18 17:00 10/18/18 18:14 Levophed Drip 4 Mg/Ns 250 Ml IV 0 mcg/min TITR FRANCISCO 0 mls/hr Titration Protocol 2 MCG/MIN Ceftriaxone Sodium 2 gm in 100 mls @ 200 mls/hr 10/17/18 10:00 10/21/18 11:05 Rocephin/Ns 2 Gm/100 Ml IV 11/03/18 23:59 200 mls/hr Q24HR FRANCISCO Administration Insulin Glargine 20 units 10/13/18 22:00 10/21/18 00:00 Lantus SUB-Q Not Given QHS FRANCISCO Insulin Human Lispro 0 unit 10/12/18 09:00 10/21/18 07:57 Humalog SUB-Q Not Given Q6HR [facility] Protocol Metronidazole 500 mg 10/17/18 14:00 10/21/18 08:07 Flagyl PO 11/03/18 23:59 500 mg Q8HR FRANCISCO Administration Morphine Sulfate 4 mg 10/12/18 22:30 10/16/18 02:10 Morphine IV 4 mg Q4H PRN Administration Pain , Severe (7-10) Ondansetron HCl 4 mg 10/11/18 09:30 Zofran IV Q8H PRN Nausea And Vomiting Pantoprazole Sodium 40 mg 10/14/18 10:00 10/21/18 11:06 Protonix PO 40 mg QDAY FRANCISCO Administration Sodium Bicarbonate 1,300 mg 10/15/18 13:00 10/21/18 11:05 Sodium Bicarbonate PO 1,300 mg BID FRANCISCO Administration Sodium Chloride 10 ml 10/11/18 10:00 10/20/18 22:19 Sodium Chloride Flush Syringe 10 Ml IV 10 ml BID FRANCISCO Administration Sodium Chloride 10 ml 10/11/18 09:00 Sodium Chloride Flush Syringe 10 Ml IV PRN PRN LINE FLUSH
[2018-10-21] MEDS ORDERED: NACL 0.45% 1000 ML 1,000 ML with SODIUM BICARBONATE 75 MEQ IV SCH (12:00)
--- NOTE | 2018-10-21 12:30 | Progress Note ---
Assessment and Plan Dinora is a 58 year old male presenting from [facility] ([facility]) Pt is a very poor historian, per medical records he has history of paroxysmal atrial fibrillation, hypertension, diabetes, Colosotomy and lack of coordination with Muscle weakness anal abscess with recent debridement in Aug 2018, chronic indwelling suarez who was referred to the ER from his snf for evaluation of fever and low blood pressure and altered mental status. In the ER he was found to have urosepsis, acute renal failure and DKA with elevated troponin. Patient was unable to provided any information due to incoherence of his thoughts he complained of dry mouth per the ED Physician. He denies any chest pain, palpitations or shortness of breath. A report from the MD revealed that he was noted this morning to be confused with shivering. Labs done the day prior to admission revealed a wbc of 31.4 per the staff. The patient in the ED was started on sepsis protocol and also pressers labs from snf done 10/10/17: wbc 31.4, hgb 9.1, plt 271 Source ?chronic colitis, small bilateral pleural effusions, ileus, anasarca, bilateral renal calculi. Acute Toxic metabolic encephalopathy - Resolved Septic Shock Severe Sepsis - Leukocytosis, blood cultures was positive for beta hemolytic streptococcus group C, urine culture is negative - Patient is currently off pressors - On IV ceftriaxone, Flagyl and vancomycin - Flagyl and Rocephin will continue for 3 weeks per ID recommendation - TTE was done and is negative for any vegetation Hyperosmolar NonKetotic Hyperglycemia - Resolved Uncontrolled DM - Currently blood sugar level is on target - Unsteadiness to insulin MALCOLM secondary to vasomotor nephropathy - Creatinine is stable - Nephrology is following Severe acute blood loss anemia on anemia of chronic disease - H&H is stable - We'll continue to monitor Metabolic acidosis - Patient's treated with bicarbonate - Neurology is following Colostomy - Colostomy care Unstagable scaral pressure ulcer POA - General surgery is following - Wound vac is in place Afib with RVR - Patient is on amiodarone and diltiazem - But it is controlled currently, patient is on Coumadin and INR is supratherapeutic Troponemia- Type 2 NSTEMI - Cardiology is following, intervention needed at this time Hypokalemia - Repleted Severe Protein calorie malnutrition - We'll consult nutrition Generalized weakness - We'll consult critical therapy once stable Disposition: Discharged to [facility] when clinically stable Subjective Date of service: 10/21/18 Principal diagnosis: Acute Toxic metabolic encephalopathy; Septic Shock; Severe Sepsis; DKA Interval history: Life port in bed. Complains of fatigue. Denies any chest pain orthopnea or paroxysmal nocturnal dyspnea Objective - Exam Narrative Exam: Constitutional: Well-nourished well-developed. In no distress Head: Normocephalic atraumatic Eyes: Pupils are equal round and reactive to light Nose: No enlarged turbinates, no septal deviation. Mouth: Moist mucous membranes. Neck: Supple no thyromegaly. No bruit. No JVD Heart: Regular rate and rhythm, S1-S2 normal. No rubs murmurs or gallop Lungs: Decreased breath sounds bilaterally. Has rhonchi Abdomen: Soft, nontender. Bowel sound are present. Extremities: No edema, no cyanosis, no clubbing. Neuro: Alert oriented Oriented x3. No focal sensory or motor deficit. Skin: No rashes or hyperpigmented spots Musculoskeletal system: No joint pain or swelling Hematological: No petechia or subcutanous hemorrhages. Immunological: No multiple septic spots on the skin Lymphatic: No generalized lymphadenopathy Psychiatry: Euthymic. Calm. - Constitutional Vitals: Vital Signs - 12hr 10/21/18 10/21/18 10/21/18 00:31 00:41 00:51 Temperature Pulse Rate 105 H Pulse Rate [ Anterior Bilateral Throughout] Pulse Rate [ Apical] Pulse Rate [ From Monitor] Respiratory 48 H 36 H 14 Rate Respiratory Rate [Anterior Bilateral Throughout] Blood Pressure 104/49 104/49 104/49 O2 Sat by Pulse 89 91 93 Oximetry 10/21/18 10/21/18 10/21/18 01:01 01:11 01:21 Temperature Pulse Rate 96 H 94 H 96 H Pulse Rate [ Anterior Bilateral Throughout] Pulse Rate [ Apical] Pulse Rate [ From Monitor] Respiratory 44 H 43 H 58 H Rate Respiratory Rate [Anterior Bilateral Throughout] Blood Pressure 121/87 121/87 121/87 O2 Sat by Pulse 97 97 97 Oximetry 10/21/18 10/21/18 10/21/18 01:31 01:41 01:51 Temperature Pulse Rate 96 H 118 H Pulse Rate [ Anterior Bilateral Throughout] Pulse Rate [ Apical] Pulse Rate [ From Monitor] Respiratory 37 H 41 H 38 H Rate Respiratory Rate [Anterior Bilateral Throughout] Blood Pressure 121/87 121/87 121/87 O2 Sat by Pulse 95 96 96 Oximetry 10/21/18 10/21/18 10/21/18 02:00 02:11 02:21 Temperature Pulse Rate 95 H 96 H 94 H Pulse Rate [ Anterior Bilateral Throughout] Pulse Rate [ Apical] Pulse Rate [ From Monitor] Respiratory 16 19 32 H Rate Respiratory Rate [Anterior Bilateral Throughout] Blood Pressure 111/83 121/87 121/87 O2 Sat by Pulse 96 90 89 Oximetry 10/21/18 10/21/18 10/21/18 02:31 02:41 02:51 Temperature Pulse Rate 95 H 96 H 96 H Pulse Rate [ Anterior Bilateral Throughout] Pulse Rate [ Apical] Pulse Rate [ From Monitor] Respiratory 42 H 44 H 44 H Rate Respiratory Rate [Anterior Bilateral Throughout] Blood Pressure 121/87 111/83 111/83 O2 Sat by Pulse 89 92 93 Oximetry 10/21/18 10/21/18 10/21/18 03:00 03:11 03:20 Temperature Pulse Rate 95 H 96 H 95 H Pulse Rate [ Anterior Bilateral Throughout] Pulse Rate [ Apical] Pulse Rate [ From Monitor] Respiratory 33 H 47 H 38 H Rate Respiratory Rate [Anterior Bilateral Throughout] Blood Pressure 118/78 118/78 118/78 O2 Sat by Pulse 91 90 89 Oximetry 10/21/18 10/21/18 10/21/18 03:31 03:41 03:51 Temperature Pulse Rate 96 H 96 H 94 H Pulse Rate [ Anterior Bilateral Throughout] Pulse Rate [ Apical] Pulse Rate [ From Monitor] Respiratory 41 H 31 H 46 H Rate Respiratory Rate [Anterior Bilateral Throughout] Blood Pressure 118/78 118/78 118/78 O2 Sat by Pulse 91 92 92 Oximetry 10/21/18 10/21/18 10/21/18 04:00 04:11 04:21 Temperature 98.6 F Pulse Rate 95 H 95 H 95 H Pulse Rate [ Anterior Bilateral Throughout] Pulse Rate [ 97 H Apical] Pulse Rate [ 97 H From Monitor] Respiratory 41 H 49 H 41 H Rate Respiratory Rate [Anterior Bilateral Throughout] Blood Pressure 113/80 118/78 118/78 O2 Sat by Pulse 93 91 92 Oximetry 10/21/18 10/21/18 10/21/18 04:31 04:41 04:51 Temperature Pulse Rate 98 H 95 H 95 H Pulse Rate [ Anterior Bilateral Throughout] Pulse Rate [ Apical] Pulse Rate [ From Monitor] Respiratory 19 26 H 21 Rate Respiratory Rate [Anterior Bilateral Throughout] Blood Pressure 118/78 118/78 118/78 O2 Sat by Pulse 92 93 90 Oximetry 10/21/18 10/21/18 10/21/18 05:01 05:11 05:21 Temperature Pulse Rate 95 H 98 H 92 H Pulse Rate [ Anterior Bilateral Throughout] Pulse Rate [ Apical] Pulse Rate [ From Monitor] Respiratory 22 34 H 21 Rate Respiratory Rate [Anterior Bilateral Throughout] Blood Pressure 118/78 118/78 118/78 O2 Sat by Pulse 95 92 91 Oximetry 10/21/18 10/21/18 10/21/18 05:31 05:41 05:51 Temperature Pulse Rate 95 H 93 H 93 H Pulse Rate [ Anterior Bilateral Throughout] Pulse Rate [ Apical] Pulse Rate [ From Monitor] Respiratory 26 H 42 H 39 H Rate Respiratory Rate [Anterior Bilateral Throughout] Blood Pressure 118/78 118/78 118/78 O2 Sat by Pulse 88 90 87 Oximetry 10/21/18 10/21/18 10/21/18 06:00 08:08 09:44 Temperature Pulse Rate 91 H 91 H Pulse Rate [ Anterior Bilateral Throughout] Pulse Rate [ Apical] Pulse Rate [ From Monitor] Respiratory 34 H Rate Respiratory Rate [Anterior Bilateral Throughout] Blood Pressure 105/68 106/73 O2 Sat by Pulse 93 96 Oximetry 10/21/18 10/21/18 10/21/18 09:45 10:05 11:05 Temperature Pulse Rate 91 H Pulse Rate [ 95 H 93 H Anterior Bilateral Throughout] Pulse Rate [ Apical] Pulse Rate [ From Monitor] Respiratory Rate Respiratory 23 24 Rate [Anterior Bilateral Throughout] Blood Pressure 109/50 O2 Sat by Pulse Oximetry - Labs CBC & Chem 7: 10/21/18 05:11 10/21/18 05:11 Labs: Abnormal lab results 10/20/18 10/20/18 10/21/18 Range/Units 17:32 22:23 05:11 WBC (4.5-11.0) K/mm3 RBC (3.65-5.03) M/mm3 Hgb (11.8-15.2) gm/dl Hct (35.5-45.6) % RDW (13.2-15.2) % Seg Neuts % (Manual) (40.0-70.0) % Lymphocytes % (Manual) (13.4-35.0) % Seg Neutrophils # Man (1.8-7.7) K/mm3 PT 33.2 H (12.2-14.9) Sec. INR 3.22 H (0.87-1.13) Chloride (98-107) mmol/L Carbon Dioxide (22-30) mmol/L Creatinine (0.8-1.5) mg/dL Glucose (75-100) mg/dL POC Glucose 137 H 157 H (70-105) Calcium (8.4-10.2) mg/dL 10/21/18 10/21/18 10/21/18 Range/Units 05:11 05:11 05:28 WBC 20.7 H (4.5-11.0) K/mm3 RBC 2.79 L (3.65-5.03) M/mm3 Hgb 8.3 L (11.8-15.2) gm/dl Hct 25.6 L (35.5-45.6) % RDW 18.5 H (13.2-15.2) % Seg Neuts % (Manual) 81.0 H (40.0-70.0) % Lymphocytes % (Manual) 11.0 L (13.4-35.0) % Seg Neutrophils # Man 16.8 H (1.8-7.7) K/mm3 PT (12.2-14.9) Sec. INR (0.87-1.13) Chloride 111.0 H (98-107) mmol/L Carbon Dioxide 19 L (22-30) mmol/L Creatinine 2.2 H (0.8-1.5) mg/dL Glucose 127 H (75-100) mg/dL POC Glucose 133 H (70-105) Calcium 7.2 L (8.4-10.2) mg/dL
[2018-10-21] MEDS: SODIUM CHLORIDE FLUSH SYRINGE 10 ML IV SCH ×2 (16:14→22:00)
--- NOTE | 2018-10-21 21:29 | Progress Note ---
Assessment and Plan Patient sleeping at this time on room air. O2 saturation 93%. No acute respiratory distress.Patient afebrile. Has marked leukocytosis. Blood pressure borderline.93/66. - Patient Problems (1) DKA (diabetic ketoacidoses) Current Visit: Yes Status: Acute Plan to address problem: Improving .ANion Gap 14. Blood sugur 127. Management as per primary care. (2) Acute renal failure Current Visit: Yes Status: Acute Plan to address problem: Management as per nephrology. (3) Paroxysmal atrial fibrillation with RVR Current Visit: Yes Status: Chronic Plan to address problem: Management as per primary care and cardiology. (4) Sacral decubitus ulcer, stage IV Current Visit: Yes Status: Chronic Plan to address problem: Wound care. Patient is on Metranidazole and ceftrioxone. (5) UTI (urinary tract infection) Current Visit: Yes Status: Acute Plan to address problem: Patient is on ceftrioxone. (6) Hypotension Current Visit: Yes Status: Acute Plan to address problem: Patient is on I/V fluids NSS. Patient is on Levophed. (7) Sepsis Current Visit: Yes Status: Acute Plan to address problem: Patient is on ceftrioxone and metronidazole. Subjective Date of service: 10/21/18 Principal diagnosis: Acute Toxic metabolic encephalopathy; Septic Shock; Severe Sepsis; DKA Interval history: Patient sleeping at this time on room air. O2 saturation 93%. No acute respiratory distress.Patient afebrile. Has marked leukocytosis. Blood pressure borderline.93/66. Objective Vital Signs - 12hr 10/21/18 10/21/18 10/21/18 09:31 09:41 09:44 Temperature Pulse Rate 91 H 91 H Pulse Rate [ Anterior Bilateral Throughout] Pulse Rate [ Apical] Pulse Rate [ From Monitor] Respiratory 40 H 31 H Rate Respiratory Rate [Anterior Bilateral Throughout] Blood Pressure 106/73 106/73 O2 Sat by Pulse 91 91 96 Oximetry 10/21/18 10/21/18 10/21/18 09:45 09:51 10:00 Temperature Pulse Rate 92 H 92 H Pulse Rate [ 95 H Anterior Bilateral Throughout] Pulse Rate [ Apical] Pulse Rate [ From Monitor] Respiratory 29 H 33 H Rate Respiratory 23 Rate [Anterior Bilateral Throughout] Blood Pressure 109/70 102/75 O2 Sat by Pulse 100 99 Oximetry 10/21/18 10/21/18 10/21/18 10:05 10:11 10:21 Temperature Pulse Rate 177 H 100 H Pulse Rate [ 93 H Anterior Bilateral Throughout] Pulse Rate [ Apical] Pulse Rate [ From Monitor] Respiratory 36 H 41 H Rate Respiratory 24 Rate [Anterior Bilateral Throughout] Blood Pressure 102/75 102/75 O2 Sat by Pulse 91 94 Oximetry 10/21/18 10/21/18 10/21/18 10:31 10:41 10:51 Temperature Pulse Rate 91 H 92 H 91 H Pulse Rate [ Anterior Bilateral Throughout] Pulse Rate [ Apical] Pulse Rate [ From Monitor] Respiratory 27 H 33 H 36 H Rate Respiratory Rate [Anterior Bilateral Throughout] Blood Pressure 102/75 102/75 102/75 O2 Sat by Pulse 91 91 90 Oximetry 10/21/18 10/21/18 10/21/18 11:00 11:05 11:11 Temperature Pulse Rate 94 H 91 H 92 H Pulse Rate [ Anterior Bilateral Throughout] Pulse Rate [ Apical] Pulse Rate [ From Monitor] Respiratory 35 H 18 Rate Respiratory Rate [Anterior Bilateral Throughout] Blood Pressure 89/50 109/50 89/50 O2 Sat by Pulse 90 93 Oximetry 10/21/18 10/21/18 10/21/18 11:21 11:31 11:41 Temperature Pulse Rate 91 H 94 H 91 H Pulse Rate [ Anterior Bilateral Throughout] Pulse Rate [ Apical] Pulse Rate [ From Monitor] Respiratory 24 15 37 H Rate Respiratory Rate [Anterior Bilateral Throughout] Blood Pressure 89/50 89/50 107/65 O2 Sat by Pulse 87 94 91 Oximetry 10/21/18 10/21/18 10/21/18 11:51 12:00 12:11 Temperature 97.6 F Pulse Rate 94 H 92 H 90 Pulse Rate [ Anterior Bilateral Throughout] Pulse Rate [ 97 H Apical] Pulse Rate [ 97 H From Monitor] Respiratory 37 H 35 H 39 H Rate Respiratory Rate [Anterior Bilateral Throughout] Blood Pressure 107/65 107/61 107/61 O2 Sat by Pulse 94 94 95 Oximetry 10/21/18 10/21/18 10/21/18 12:21 12:31 12:41 Temperature Pulse Rate 92 H 94 H 93 H Pulse Rate [ Anterior Bilateral Throughout] Pulse Rate [ Apical] Pulse Rate [ From Monitor] Respiratory 41 H 42 H 36 H Rate Respiratory Rate [Anterior Bilateral Throughout] Blood Pressure 107/61 107/61 107/61 O2 Sat by Pulse 96 96 96 Oximetry 10/21/18 10/21/18 10/21/18 12:51 13:00 13:11 Temperature Pulse Rate 93 H 90 91 H Pulse Rate [ Anterior Bilateral Throughout] Pulse Rate [ Apical] Pulse Rate [ From Monitor] Respiratory 37 H 37 H 36 H Rate Respiratory Rate [Anterior Bilateral Throughout] Blood Pressure 107/61 112/69 112/69 O2 Sat by Pulse 96 96 96 Oximetry 10/21/18 10/21/18 10/21/18 13:21 13:31 13:41 Temperature Pulse Rate 91 H 93 H 91 H Pulse Rate [ Anterior Bilateral Throughout] Pulse Rate [ Apical] Pulse Rate [ From Monitor] Respiratory 36 H 36 H 11 L Rate Respiratory Rate [Anterior Bilateral Throughout] Blood Pressure 112/69 112/69 112/69 O2 Sat by Pulse 95 95 93 Oximetry 10/21/18 10/21/18 10/21/18 13:51 13:57 14:00 Temperature Pulse Rate 91 H 93 H Pulse Rate [ 93 H Anterior Bilateral Throughout] Pulse Rate [ Apical] Pulse Rate [ From Monitor] Respiratory 38 H 19 Rate Respiratory 20 Rate [Anterior Bilateral Throughout] Blood Pressure 112/69 114/74 O2 Sat by Pulse 95 100 Oximetry 10/21/18 10/21/18 10/21/18 14:11 14:21 14:31 Temperature Pulse Rate 93 H 99 H 94 H Pulse Rate [ 93 H Anterior Bilateral Throughout] Pulse Rate [ Apical] Pulse Rate [ From Monitor] Respiratory 30 H 19 25 H Rate Respiratory 20 Rate [Anterior Bilateral Throughout] Blood Pressure 114/74 114/74 114/74 O2 Sat by Pulse 100 94 83 L Oximetry 10/21/18 10/21/18 10/21/18 14:41 14:51 15:00 Temperature Pulse Rate 99 H 96 H 95 H Pulse Rate [ Anterior Bilateral Throughout] Pulse Rate [ Apical] Pulse Rate [ From Monitor] Respiratory 25 H 13 30 H Rate Respiratory Rate [Anterior Bilateral Throughout] Blood Pressure 114/74 114/74 92/60 O2 Sat by Pulse 94 94 89 Oximetry 10/21/18 10/21/18 10/21/18 15:11 15:21 15:31 Temperature Pulse Rate 96 H 95 H 96 H Pulse Rate [ Anterior Bilateral Throughout] Pulse Rate [ Apical] Pulse Rate [ From Monitor] Respiratory 25 H 34 H 16 Rate Respiratory Rate [Anterior Bilateral Throughout] Blood Pressure 92/60 92/60 92/60 O2 Sat by Pulse 92 89 89 Oximetry 10/21/18 10/21/18 10/21/18 15:41 15:51 16:00 Temperature 97.8 F Pulse Rate 96 H 90 93 H Pulse Rate [ Anterior Bilateral Throughout] Pulse Rate [ 97 H Apical] Pulse Rate [ 97 H From Monitor] Respiratory 17 27 H 19 Rate Respiratory Rate [Anterior Bilateral Throughout] Blood Pressure 92/60 92/60 96/59 O2 Sat by Pulse 90 93 91 Oximetry 10/21/18 10/21/18 10/21/18 16:11 16:21 16:31 Temperature Pulse Rate 91 H 100 H 102 H Pulse Rate [ Anterior Bilateral Throughout] Pulse Rate [ Apical] Pulse Rate [ From Monitor] Respiratory 18 14 18 Rate Respiratory Rate [Anterior Bilateral Throughout] Blood Pressure 96/59 96/59 96/59 O2 Sat by Pulse 92 92 98 Oximetry 10/21/18 10/21/18 10/21/18 16:41 16:51 17:00 Temperature Pulse Rate 95 H 95 H 93 H Pulse Rate [ Anterior Bilateral Throughout] Pulse Rate [ Apical] Pulse Rate [ From Monitor] Respiratory 15 31 H 27 H Rate Respiratory Rate [Anterior Bilateral Throughout] Blood Pressure 96/59 96/59 113/74 O2 Sat by Pulse 93 93 94 Oximetry 10/21/18 10/21/18 10/21/18 17:10 17:21 17:31 Temperature Pulse Rate 102 H 95 H 98 H Pulse Rate [ Anterior Bilateral Throughout] Pulse Rate [ Apical] Pulse Rate [ From Monitor] Respiratory 27 H 14 19 Rate Respiratory Rate [Anterior Bilateral Throughout] Blood Pressure 96/59 113/74 113/74 O2 Sat by Pulse 96 93 93 Oximetry 10/21/18 10/21/18 10/21/18 17:41 17:51 18:00 Temperature Pulse Rate 95 H 94 H 94 H Pulse Rate [ Anterior Bilateral Throughout] Pulse Rate [ Apical] Pulse Rate [ From Monitor] Respiratory 40 H 50 H 22 Rate Respiratory Rate [Anterior Bilateral Throughout] Blood Pressure 113/74 113/74 83/53 O2 Sat by Pulse 93 91 92 Oximetry 10/21/18 10/21/18 10/21/18 18:11 18:21 18:31 Temperature Pulse Rate 95 H 94 H 94 H Pulse Rate [ Anterior Bilateral Throughout] Pulse Rate [ Apical] Pulse Rate [ From Monitor] Respiratory 33 H 39 H 32 H Rate Respiratory Rate [Anterior Bilateral Throughout] Blood Pressure 83/53 83/53 83/53 O2 Sat by Pulse 85 89 93 Oximetry 10/21/18 10/21/18 10/21/18 18:41 18:51 19:00 Temperature Pulse Rate 92 H 92 H 92 H Pulse Rate [ Anterior Bilateral Throughout] Pulse Rate [ Apical] Pulse Rate [ From Monitor] Respiratory 29 H 36 H 23 Rate Respiratory Rate [Anterior Bilateral Throughout] Blood Pressure 83/53 83/53 88/53 O2 Sat by Pulse 94 93 91 Oximetry 10/21/18 10/21/18 10/21/18 19:11 19:20 19:31 Temperature Pulse Rate 92 H 95 H 93 H Pulse Rate [ Anterior Bilateral Throughout] Pulse Rate [ Apical] Pulse Rate [ From Monitor] Respiratory 19 20 29 H Rate Respiratory Rate [Anterior Bilateral Throughout] Blood Pressure 88/53 88/53 88/53 O2 Sat by Pulse 93 94 94 Oximetry 10/21/18 10/21/18 10/21/18 19:41 19:46 19:47 Temperature Pulse Rate 94 H Pulse Rate [ 91 H Anterior Bilateral Throughout] Pulse Rate [ Apical] Pulse Rate [ From Monitor] Respiratory 41 H Rate Respiratory 15 Rate [Anterior Bilateral Throughout] Blood Pressure 88/53 O2 Sat by Pulse 94 93 Oximetry 10/21/18 10/21/18 10/21/18 19:51 20:00 20:01 Temperature 97.5 F L Pulse Rate 91 H 91 H Pulse Rate [ 93 H Anterior Bilateral Throughout] Pulse Rate [ Apical] Pulse Rate [ 98 H From Monitor] Respiratory 15 20 Rate Respiratory 15 Rate [Anterior Bilateral Throughout] Blood Pressure 88/53 93/66 O2 Sat by Pulse 99 93 Oximetry 10/21/18 20:11 Temperature Pulse Rate 93 H Pulse Rate [ Anterior Bilateral Throughout] Pulse Rate [ Apical] Pulse Rate [ From Monitor] Respiratory 36 H Rate Respiratory Rate [Anterior Bilateral Throughout] Blood Pressure 93/66 O2 Sat by Pulse 85 Oximetry Constitutional: no acute distress, alert, other (elderly looking AAM, normocephalic and atraumatic with mildly increased resp effort at rest) Eyes: non-icteric ENT: oropharynx dry, other (Mallampati 2) Neck: supple, no lymphadenopathy, no JVD Effort: mildly labored Ascultation: Bilateral: clear Percussion: Bilateral: not dull Cardiovascular: irregular rhythm, other (No R/M) Gastrointestinal: hypoactive bowel sounds, soft, non-tender, non-distended Integumentary: rash, decubitus ulcer (sacral) Extremities: no cyanosis, no edema, pulses normal, no ischemia or petechiae Neurologic: normal mental status, non-focal exam (grossly), pupils equal and round, other (weak lower extremities) Psychiatric: mood appropriate, affect normal CBC and BMP: 10/21/18 05:11 10/21/18 05:11 ABG, PT/INR, D-dimer: ABG POC ABG pH 7.380 (7.35-7.45) 10/11/18 17:53 POC ABG pCO2 28.2 (35-45) L 10/11/18 17:53 POC ABG pO2 60 (80-105) L 10/11/18 17:53 POC ABG HCO3 16.7 10/11/18 17:53 POC ABG Total CO2 18 10/11/18 17:53 POC ABG O2 Sat 91 10/11/18 17:53 PT/INR, D-dimer PT 33.2 Sec. (12.2-14.9) H 10/21/18 05:11 INR 3.22 (0.87-1.13) H 10/21/18 05:11 Abnormal lab findings: Abnormal Labs 10/11/18 10/11/18 10/11/18 05:21 05:21 05:21 WBC 22.3 H RBC 2.62 L Hgb 8.0 L Hct 24.5 L MCHC RDW 16.0 H Seg Neuts % (Manual) 90.0 H Lymphocytes % (Manual) 4.0 L Seg Neutrophils # Man 20.1 H Lymphocytes # (Manual) 0.9 L Monocytes # (Manual) Eosinophils # (Manual) Basophils # (Manual) PT 17.1 H INR 1.35 H POC ABG pCO2 POC ABG pO2 VBG pH Sodium 133 L Potassium 2.8 L* Chloride 94.5 L Carbon Dioxide 11 L BUN 69 H Creatinine 5.0 H Glucose 362 H POC Glucose Lactic Acid Calcium 7.4 L Phosphorus Magnesium Alkaline Phosphatase Total Creatine Kinase Troponin T 0.116 H* C-Reactive Protein Total Protein 6.2 L Albumin 2.1 L Cholesterol 26 L LDL Cholesterol Direct 4 L HDL Cholesterol 7 L Urine WBC (Auto) Crossmatch 10/11/18 10/11/18 10/11/18 05:21 05:21 05:21 WBC RBC Hgb Hct MCHC RDW Seg Neuts % (Manual) Lymphocytes % (Manual) Seg Neutrophils # Man Lymphocytes # (Manual) Monocytes # (Manual) Eosinophils # (Manual) Basophils # (Manual) PT INR POC ABG pCO2 POC ABG pO2 VBG pH 7.226 L Sodium Potassium Chloride Carbon Dioxide BUN Creatinine Glucose POC Glucose Lactic Acid 7.40 H* Calcium Phosphorus Magnesium Alkaline Phosphatase Total Creatine Kinase 1094 H Troponin T C-Reactive Protein Total Protein Albumin Cholesterol LDL Cholesterol Direct HDL Cholesterol Urine WBC (Auto) Crossmatch 10/11/18 10/11/18 10/11/18 06:08 06:51 06:51 WBC RBC Hgb Hct MCHC RDW Seg Neuts % (Manual) Lymphocytes % (Manual) Seg Neutrophils # Man Lymphocytes # (Manual) Monocytes # (Manual) Eosinophils # (Manual) Basophils # (Manual) PT INR POC ABG pCO2 POC ABG pO2 VBG pH Sodium 132 L Potassium 3.1 L Chloride 94.3 L Carbon Dioxide 10 L BUN 68 H Creatinine 5.8 H Glucose 402 H POC Glucose Lactic Acid 7.80 H* Calcium 7.8 L Phosphorus 4.80 H Magnesium 0.90 L* Alkaline Phosphatase Total Creatine Kinase Troponin T C-Reactive Protein Total Protein Albumin Cholesterol LDL Cholesterol Direct HDL Cholesterol Urine WBC (Auto) > 182.0 H Crossmatch 10/11/18 10/11/18 10/11/18 08:56 09:05 10:23 WBC RBC Hgb Hct MCHC RDW Seg Neuts % (Manual) Lymphocytes % (Manual) Seg Neutrophils # Man Lymphocytes # (Manual) Monocytes # (Manual) Eosinophils # (Manual) Basophils # (Manual) PT INR POC ABG pCO2 POC ABG pO2 VBG pH Sodium Potassium Chloride Carbon Dioxide BUN Creatinine Glucose POC Glucose 367 H 305 H Lactic Acid Calcium Phosphorus Magnesium Alkaline Phosphatase Total Creatine Kinase Troponin T C-Reactive Protein Total Protein Albumin Cholesterol LDL Cholesterol Direct HDL Cholesterol Urine WBC (Auto) Crossmatch See Detail 10/11/18 10/11/18 10/11/18 11:12 12:17 12:18 WBC RBC Hgb Hct MCHC RDW Seg Neuts % (Manual) Lymphocytes % (Manual) Seg Neutrophils # Man Lymphocytes # (Manual) Monocytes # (Manual) Eosinophils # (Manual) Basophils # (Manual) PT INR POC ABG pCO2 POC ABG pO2 VBG pH Sodium 135 L Potassium 2.8 L* Chloride 97.9 L Carbon Dioxide 14 L BUN 67 H Creatinine 6.0 H Glucose 246 H POC Glucose 299 H 261 H Lactic Acid Calcium 7.5 L Phosphorus Magnesium Alkaline Phosphatase Total Creatine Kinase 1110 H Troponin T C-Reactive Protein Total Protein Albumin Cholesterol LDL Cholesterol Direct HDL Cholesterol Urine WBC (Auto) Crossmatch 10/11/18 10/11/18 10/11/18 13:05 14:13 14:34 WBC RBC Hgb Hct MCHC RDW Seg Neuts % (Manual) Lymphocytes % (Manual) Seg Neutrophils # Man Lymphocytes # (Manual) Monocytes # (Manual) Eosinophils # (Manual) Basophils # (Manual) PT INR POC ABG pCO2 POC ABG pO2 VBG pH Sodium 135 L Potassium 2.7 L* Chloride Carbon Dioxide 18 L BUN 68 H Creatinine 5.0 H Glucose 191 H POC Glucose 251 H 233 H Lactic Acid Calcium 7.1 L Phosphorus Magnesium Alkaline Phosphatase Total Creatine Kinase Troponin T C-Reactive Protein Total Protein Albumin Cholesterol LDL Cholesterol Direct HDL Cholesterol Urine WBC (Auto) Crossmatch 10/11/18 10/11/18 10/11/18 15:08 16:00 17:20 WBC RBC Hgb Hct MCHC RDW Seg Neuts % (Manual) Lymphocytes % (Manual) Seg Neutrophils # Man Lymphocytes # (Manual) Monocytes # (Manual) Eosinophils # (Manual) Basophils # (Manual) PT INR POC ABG pCO2 POC ABG pO2 VBG pH Sodium Potassium Chloride Carbon Dioxide BUN Creatinine Glucose POC Glucose 213 H 224 H 187 H Lactic Acid Calcium Phosphorus Magnesium Alkaline Phosphatase Total Creatine Kinase Troponin T C-Reactive Protein Total Protein Albumin Cholesterol LDL Cholesterol Direct HDL Cholesterol Urine WBC (Auto) Crossmatch 10/11/18 10/11/18 10/11/18 17:53 17:58 18:12 WBC RBC Hgb Hct MCHC RDW Seg Neuts % (Manual) Lymphocytes % (Manual) Seg Neutrophils # Man Lymphocytes # (Manual) Monocytes # (Manual) Eosinophils # (Manual) Basophils # (Manual) PT INR POC ABG pCO2 28.2 L POC ABG pO2 60 L VBG pH Sodium Potassium Chloride Carbon Dioxide BUN Creatinine Glucose POC Glucose 189 H Lactic Acid Calcium Phosphorus Magnesium Alkaline Phosphatase Total Creatine Kinase 933 H Troponin T C-Reactive Protein Total Protein Albumin Cholesterol LDL Cholesterol Direct HDL Cholesterol Urine WBC (Auto) Crossmatch 10/11/18 10/11/18 10/11/18 18:58 20:16 21:10 WBC RBC Hgb Hct MCHC RDW Seg Neuts % (Manual) Lymphocytes % (Manual) Seg Neutrophils # Man Lymphocytes # (Manual) Monocytes # (Manual) Eosinophils # (Manual) Basophils # (Manual) PT INR POC ABG pCO2 POC ABG pO2 VBG pH Sodium Potassium Chloride Carbon Dioxide BUN Creatinine Glucose POC Glucose 192 H 179 H 160 H Lactic Acid Calcium Phosphorus Magnesium Alkaline Phosphatase Total Creatine Kinase Troponin T C-Reactive Protein Total Protein Albumin Cholesterol LDL Cholesterol Direct HDL Cholesterol Urine WBC (Auto) Crossmatch 10/11/18 10/11/18 10/11/18 22:14 22:42 23:09 WBC RBC Hgb Hct MCHC RDW Seg Neuts % (Manual) Lymphocytes % (Manual) Seg Neutrophils # Man Lymphocytes # (Manual) Monocytes # (Manual) Eosinophils # (Manual) Basophils # (Manual) PT INR POC ABG pCO2 POC ABG pO2 VBG pH Sodium 136 L Potassium 2.9 L* Chloride Carbon Dioxide 17 L BUN 61 H Creatinine 4.0 H Glucose 122 H POC Glucose 145 H 129 H Lactic Acid Calcium 6.6 L Phosphorus Magnesium Alkaline Phosphatase Total Creatine Kinase Troponin T C-Reactive Protein Total Protein Albumin Cholesterol LDL Cholesterol Direct HDL Cholesterol Urine WBC (Auto) Crossmatch 10/11/18 10/11/18 10/11/18 Unknown Unknown Unknown WBC RBC Hgb Hct MCHC RDW Seg Neuts % (Manual) Lymphocytes % (Manual) Seg Neutrophils # Man Lymphocytes # (Manual) Monocytes # (Manual) Eosinophils # (Manual) Basophils # (Manual) PT INR POC ABG pCO2 POC ABG pO2 VBG pH Sodium 133 L Potassium 3.0 L Chloride 93.7 L Carbon Dioxide 9 L* BUN 67 H Creatinine 5.9 H Glucose 406 H POC Glucose Lactic Acid 8.50 H* Calcium 7.6 L Phosphorus Magnesium Alkaline Phosphatase Total Creatine Kinase Troponin T C-Reactive Protein Total Protein Albumin Cholesterol LDL Cholesterol Direct HDL Cholesterol Urine WBC (Auto) > 182.0 H Crossmatch 10/12/18 10/12/18 10/12/18 00:18 01:42 02:03 WBC RBC Hgb Hct MCHC RDW Seg Neuts % (Manual) Lymphocytes % (Manual) Seg Neutrophils # Man Lymphocytes # (Manual) Monocytes # (Manual) Eosinophils # (Manual) Basophils # (Manual) PT INR POC ABG pCO2 POC ABG pO2 VBG pH Sodium Potassium Chloride Carbon Dioxide BUN Creatinine Glucose POC Glucose 113 H 51 L 116 H Lactic Acid Calcium Phosphorus Magnesium Alkaline Phosphatase Total Creatine Kinase Troponin T C-Reactive Protein Total Protein Albumin Cholesterol LDL Cholesterol Direct HDL Cholesterol Urine WBC (Auto) Crossmatch 10/12/18 10/12/18 10/12/18 03:09 04:20 04:20 WBC 26.8 H RBC 2.22 L Hgb 6.7 L Hct 19.4 L* MCHC 35 H RDW 15.8 H Seg Neuts % (Manual) Lymphocytes % (Manual) Seg Neutrophils # Man Lymphocytes # (Manual) Monocytes # (Manual) Eosinophils # (Manual) Basophils # (Manual) PT INR POC ABG pCO2 POC ABG pO2 VBG pH Sodium Potassium 2.6 L* Chloride Carbon Dioxide 20 L BUN 56 H Creatinine 4.0 H Glucose 134 H POC Glucose 129 H Lactic Acid Calcium 6.4 L Phosphorus Magnesium 1.30 L Alkaline Phosphatase Total Creatine Kinase Troponin T C-Reactive Protein Total Protein 5.8 L Albumin 1.8 L Cholesterol LDL Cholesterol Direct HDL Cholesterol Urine WBC (Auto) Crossmatch 10/12/18 10/12/18 10/12/18 04:22 05:25 06:25 WBC RBC Hgb Hct MCHC RDW Seg Neuts % (Manual) Lymphocytes % (Manual) Seg Neutrophils # Man Lymphocytes # (Manual) Monocytes # (Manual) Eosinophils # (Manual) Basophils # (Manual) PT INR POC ABG pCO2 POC ABG pO2 VBG pH Sodium Potassium 2.7 L* Chloride Carbon Dioxide 19 L BUN 51 H Creatinine 3.6 H Glucose 113 H POC Glucose 186 H 131 H Lactic Acid Calcium 6.4 L Phosphorus Magnesium Alkaline Phosphatase Total Creatine Kinase Troponin T C-Reactive Protein Total Protein Albumin Cholesterol LDL Cholesterol Direct HDL Cholesterol Urine WBC (Auto) Crossmatch 10/12/18 10/12/18 10/12/18 07:34 08:28 09:29 WBC RBC Hgb Hct MCHC RDW Seg Neuts % (Manual) Lymphocytes % (Manual) Seg Neutrophils # Man Lymphocytes # (Manual) Monocytes # (Manual) Eosinophils # (Manual) Basophils # (Manual) PT INR POC ABG pCO2 POC ABG pO2 VBG pH Sodium Potassium Chloride Carbon Dioxide BUN Creatinine Glucose POC Glucose 120 H 110 H 140 H Lactic Acid Calcium Phosphorus Magnesium Alkaline Phosphatase Total Creatine Kinase Troponin T C-Reactive Protein Total Protein Albumin Cholesterol LDL Cholesterol Direct HDL Cholesterol Urine WBC (Auto) Crossmatch 10/12/18 10/12/18 10/12/18 11:55 12:55 12:55 WBC RBC Hgb 7.1 L Hct 20.6 L MCHC RDW Seg Neuts % (Manual) Lymphocytes % (Manual) Seg Neutrophils # Man Lymphocytes # (Manual) Monocytes # (Manual) Eosinophils # (Manual) Basophils # (Manual) PT INR POC ABG pCO2 POC ABG pO2 VBG pH Sodium 136 L Potassium 2.9 L* Chloride Carbon Dioxide 16 L BUN 48 H Creatinine 3.1 H Glucose 258 H POC Glucose 219 H Lactic Acid Calcium 6.3 L Phosphorus Magnesium Alkaline Phosphatase Total Creatine Kinase Troponin T C-Reactive Protein Total Protein Albumin Cholesterol LDL Cholesterol Direct HDL Cholesterol Urine WBC (Auto) Crossmatch 10/12/18 10/12/18 10/12/18 12:55 17:49 19:23 WBC RBC Hgb 7.7 L Hct 22.9 L MCHC RDW Seg Neuts % (Manual) Lymphocytes % (Manual) Seg Neutrophils # Man Lymphocytes # (Manual) Monocytes # (Manual) Eosinophils # (Manual) Basophils # (Manual) PT INR POC ABG pCO2 POC ABG pO2 VBG pH Sodium Potassium Chloride Carbon Dioxide BUN Creatinine Glucose POC Glucose 344 H Lactic Acid Calcium Phosphorus Magnesium 4.80 H Alkaline Phosphatase Total Creatine Kinase Troponin T C-Reactive Protein Total Protein Albumin Cholesterol LDL Cholesterol Direct HDL Cholesterol Urine WBC (Auto) Crossmatch 10/12/18 10/13/18 10/13/18 22:21 00:15 05:28 WBC RBC Hgb Hct MCHC RDW Seg Neuts % (Manual) Lymphocytes % (Manual) Seg Neutrophils # Man Lymphocytes # (Manual) Monocytes # (Manual) Eosinophils # (Manual) Basophils # (Manual) PT INR POC ABG pCO2 POC ABG pO2 VBG pH Sodium Potassium Chloride Carbon Dioxide BUN Creatinine Glucose POC Glucose 367 H 392 H 356 H Lactic Acid Calcium Phosphorus Magnesium Alkaline Phosphatase Total Creatine Kinase Troponin T C-Reactive Protein Total Protein Albumin Cholesterol LDL Cholesterol Direct HDL Cholesterol Urine WBC (Auto) Crossmatch 10/13/18 10/13/18 10/13/18 05:30 05:30 06:37 WBC 19.2 H RBC 2.67 L Hgb 7.9 L Hct 23.2 L MCHC RDW 16.4 H Seg Neuts % (Manual) Lymphocytes % (Manual) Seg Neutrophils # Man Lymphocytes # (Manual) Monocytes # (Manual) Eosinophils # (Manual) Basophils # (Manual) PT INR POC ABG pCO2 POC ABG pO2 VBG pH Sodium 135 L Potassium 2.8 L* Chloride Carbon Dioxide 17 L BUN 37 H Creatinine 2.0 H Glucose 383 H POC Glucose 413 H Lactic Acid Calcium 6.6 L Phosphorus Magnesium Alkaline Phosphatase Total Creatine Kinase Troponin T C-Reactive Protein Total Protein Albumin Cholesterol LDL Cholesterol Direct HDL Cholesterol Urine WBC (Auto) Crossmatch 10/13/18 10/13/18 10/13/18 11:15 12:46 17:47 WBC RBC Hgb Hct MCHC RDW Seg Neuts % (Manual) Lymphocytes % (Manual) Seg Neutrophils # Man Lymphocytes # (Manual) Monocytes # (Manual) Eosinophils # (Manual) Basophils # (Manual) PT INR POC ABG pCO2 POC ABG pO2 VBG pH Sodium Potassium 3.2 L Chloride Carbon Dioxide BUN Creatinine Glucose POC Glucose 220 H 181 H Lactic Acid Calcium Phosphorus Magnesium Alkaline Phosphatase Total Creatine Kinase Troponin T C-Reactive Protein Total Protein Albumin Cholesterol LDL Cholesterol Direct HDL Cholesterol Urine WBC (Auto) Crossmatch 10/13/18 10/13/18 10/13/18 19:45 22:19 23:53 WBC RBC Hgb Hct MCHC RDW Seg Neuts % (Manual) Lymphocytes % (Manual) Seg Neutrophils # Man Lymphocytes # (Manual) Monocytes # (Manual) Eosinophils # (Manual) Basophils # (Manual) PT INR POC ABG pCO2 POC ABG pO2 VBG pH Sodium Potassium Chloride Carbon Dioxide BUN Creatinine Glucose POC Glucose 185 H 153 H 152 H Lactic Acid Calcium Phosphorus Magnesium Alkaline Phosphatase Total Creatine Kinase Troponin T C-Reactive Protein Total Protein Albumin Cholesterol LDL Cholesterol Direct HDL Cholesterol Urine WBC (Auto) Crossmatch 10/14/18 10/14/18 10/14/18 02:38 04:36 04:36 WBC 19.8 H RBC 3.02 L Hgb 8.9 L Hct 26.1 L MCHC RDW 16.7 H Seg Neuts % (Manual) Lymphocytes % (Manual) Seg Neutrophils # Man Lymphocytes # (Manual) Monocytes # (Manual) Eosinophils # (Manual) Basophils # (Manual) PT INR POC ABG pCO2 POC ABG pO2 VBG pH Sodium Potassium 2.9 L* Chloride 121.6 H Carbon Dioxide 16 L BUN 25 H Creatinine 1.6 H Glucose 117 H POC Glucose 142 H Lactic Acid Calcium 7.0 L Phosphorus Magnesium Alkaline Phosphatase Total Creatine Kinase Troponin T C-Reactive Protein Total Protein Albumin Cholesterol LDL Cholesterol Direct HDL Cholesterol Urine WBC (Auto) Crossmatch 10/14/18 10/14/18 10/14/18 04:36 09:45 10:59 WBC RBC Hgb Hct MCHC RDW Seg Neuts % (Manual) Lymphocytes % (Manual) Seg Neutrophils # Man Lymphocytes # (Manual) Monocytes # (Manual) Eosinophils # (Manual) Basophils # (Manual) PT INR POC ABG pCO2 POC ABG pO2 VBG pH Sodium Potassium 3.2 L Chloride Carbon Dioxide BUN Creatinine Glucose POC Glucose 110 H Lactic Acid Calcium Phosphorus Magnesium 1.20 L Alkaline Phosphatase Total Creatine Kinase Troponin T C-Reactive Protein Total Protein Albumin Cholesterol LDL Cholesterol Direct HDL Cholesterol Urine WBC (Auto) Crossmatch 10/14/18 10/14/18 10/14/18 14:22 17:41 22:58 WBC RBC Hgb Hct MCHC RDW Seg Neuts % (Manual) Lymphocytes % (Manual) Seg Neutrophils # Man Lymphocytes # (Manual) Monocytes # (Manual) Eosinophils # (Manual) Basophils # (Manual) PT INR POC ABG pCO2 POC ABG pO2 VBG pH Sodium Potassium Chloride Carbon Dioxide BUN Creatinine Glucose POC Glucose 106 H 116 H 134 H Lactic Acid Calcium Phosphorus Magnesium Alkaline Phosphatase Total Creatine Kinase Troponin T C-Reactive Protein Total Protein Albumin Cholesterol LDL Cholesterol Direct HDL Cholesterol Urine WBC (Auto) Crossmatch 10/15/18 10/15/18 10/15/18 06:14 11:21 11:21 WBC 31.9 H RBC 2.99 L Hgb 8.6 L Hct 26.4 L MCHC RDW 16.9 H Seg Neuts % (Manual) 92.0 H Lymphocytes % (Manual) 7.0 L Seg Neutrophils # Man 29.3 H Lymphocytes # (Manual) Monocytes # (Manual) Eosinophils # (Manual) Basophils # (Manual) PT INR POC ABG pCO2 POC ABG pO2 VBG pH Sodium Potassium Chloride 111.6 H Carbon Dioxide 14 L BUN Creatinine Glucose 175 H POC Glucose 184 H Lactic Acid Calcium 7.2 L Phosphorus Magnesium Alkaline Phosphatase Total Creatine Kinase Troponin T C-Reactive Protein Total Protein Albumin Cholesterol LDL Cholesterol Direct HDL Cholesterol Urine WBC (Auto) Crossmatch 10/15/18 10/15/18 10/15/18 11:21 11:27 14:43 WBC RBC Hgb Hct MCHC RDW Seg Neuts % (Manual) Lymphocytes % (Manual) Seg Neutrophils # Man Lymphocytes # (Manual) Monocytes # (Manual) Eosinophils # (Manual) Basophils # (Manual) PT INR POC ABG pCO2 POC ABG pO2 VBG pH Sodium Potassium Chloride Carbon Dioxide BUN Creatinine Glucose POC Glucose 197 H 174 H Lactic Acid Calcium Phosphorus Magnesium 1.30 L Alkaline Phosphatase Total Creatine Kinase Troponin T C-Reactive Protein Total Protein Albumin Cholesterol LDL Cholesterol Direct HDL Cholesterol Urine WBC (Auto) Crossmatch 10/15/18 10/15/18 10/15/18 16:06 20:13 23:55 WBC RBC Hgb Hct MCHC RDW Seg Neuts % (Manual) Lymphocytes % (Manual) Seg Neutrophils # Man Lymphocytes # (Manual) Monocytes # (Manual) Eosinophils # (Manual) Basophils # (Manual) PT 26.5 H INR 2.40 H POC ABG pCO2 POC ABG pO2 VBG pH Sodium Potassium Chloride Carbon Dioxide BUN Creatinine Glucose POC Glucose 131 H 132 H Lactic Acid Calcium Phosphorus Magnesium Alkaline Phosphatase Total Creatine Kinase Troponin T C-Reactive Protein Total Protein Albumin Cholesterol LDL Cholesterol Direct HDL Cholesterol Urine WBC (Auto) Crossmatch 10/16/18 10/16/18 10/16/18 05:08 05:08 05:08 WBC 29.6 H RBC 2.99 L Hgb 8.7 L Hct 27.7 L MCHC RDW 17.9 H Seg Neuts % (Manual) Lymphocytes % (Manual) Seg Neutrophils # Man Lymphocytes # (Manual) Monocytes # (Manual) Eosinophils # (Manual) Basophils # (Manual) PT INR POC ABG pCO2 POC ABG pO2 VBG pH Sodium Potassium Chloride 119.9 H Carbon Dioxide 12 L BUN Creatinine Glucose 116 H POC Glucose Lactic Acid Calcium 6.7 L Phosphorus Magnesium 1.50 L Alkaline Phosphatase Total Creatine Kinase Troponin T C-Reactive Protein Total Protein Albumin Cholesterol LDL Cholesterol Direct HDL Cholesterol Urine WBC (Auto) Crossmatch 10/16/18 10/16/18 10/16/18 05:08 05:49 17:44 WBC RBC Hgb Hct MCHC RDW Seg Neuts % (Manual) Lymphocytes % (Manual) Seg Neutrophils # Man Lymphocytes # (Manual) Monocytes # (Manual) Eosinophils # (Manual) Basophils # (Manual) PT 22.2 H INR 1.90 H POC ABG pCO2 POC ABG pO2 VBG pH Sodium Potassium Chloride Carbon Dioxide BUN Creatinine Glucose POC Glucose 118 H 50 L Lactic Acid Calcium Phosphorus Magnesium Alkaline Phosphatase Total Creatine Kinase Troponin T C-Reactive Protein Total Protein Albumin Cholesterol LDL Cholesterol Direct HDL Cholesterol Urine WBC (Auto) Crossmatch 10/16/18 10/16/18 10/17/18 18:29 19:33 00:04 WBC RBC Hgb Hct MCHC RDW Seg Neuts % (Manual) Lymphocytes % (Manual) Seg Neutrophils # Man Lymphocytes # (Manual) Monocytes # (Manual) Eosinophils # (Manual) Basophils # (Manual) PT INR POC ABG pCO2 POC ABG pO2 VBG pH Sodium Potassium Chloride Carbon Dioxide BUN Creatinine Glucose POC Glucose 60 L 118 H 181 H Lactic Acid Calcium Phosphorus Magnesium Alkaline Phosphatase Total Creatine Kinase Troponin T C-Reactive Protein Total Protein Albumin Cholesterol LDL Cholesterol Direct HDL Cholesterol Urine WBC (Auto) Crossmatch 10/17/18 10/17/18 10/17/18 04:52 04:52 05:26 WBC RBC Hgb Hct MCHC RDW Seg Neuts % (Manual) Lymphocytes % (Manual) Seg Neutrophils # Man Lymphocytes # (Manual) Monocytes # (Manual) Eosinophils # (Manual) Basophils # (Manual) PT 20.9 H INR 1.76 H POC ABG pCO2 POC ABG pO2 VBG pH Sodium Potassium Chloride 113.4 H Carbon Dioxide 14 L BUN Creatinine Glucose 118 H POC Glucose 135 H Lactic Acid Calcium 7.0 L Phosphorus Magnesium Alkaline Phosphatase 219 H Total Creatine Kinase Troponin T C-Reactive Protein Total Protein 5.5 L Albumin 1.3 L Cholesterol LDL Cholesterol Direct HDL Cholesterol Urine WBC (Auto) Crossmatch 10/17/18 10/17/18 10/17/18 12:15 17:40 23:15 WBC RBC Hgb Hct MCHC RDW Seg Neuts % (Manual) Lymphocytes % (Manual) Seg Neutrophils # Man Lymphocytes # (Manual) Monocytes # (Manual) Eosinophils # (Manual) Basophils # (Manual) PT INR POC ABG pCO2 POC ABG pO2 VBG pH Sodium Potassium Chloride Carbon Dioxide BUN Creatinine Glucose POC Glucose 165 H 164 H 185 H Lactic Acid Calcium Phosphorus Magnesium Alkaline Phosphatase Total Creatine Kinase Troponin T C-Reactive Protein Total Protein Albumin Cholesterol LDL Cholesterol Direct HDL Cholesterol Urine WBC (Auto) Crossmatch 10/18/18 10/18/18 10/18/18 04:39 04:39 04:39 WBC 28.7 H RBC 2.97 L Hgb 8.6 L Hct 26.0 L MCHC RDW 16.8 H Seg Neuts % (Manual) 90.0 H Lymphocytes % (Manual) 5.0 L Seg Neutrophils # Man 25.8 H Lymphocytes # (Manual) Monocytes # (Manual) Eosinophils # (Manual) Basophils # (Manual) 0.3 H PT 25.0 H INR 2.22 H POC ABG pCO2 POC ABG pO2 VBG pH Sodium Potassium Chloride Carbon Dioxide BUN Creatinine Glucose POC Glucose Lactic Acid Calcium Phosphorus Magnesium 1.20 L Alkaline Phosphatase Total Creatine Kinase Troponin T C-Reactive Protein Total Protein Albumin Cholesterol LDL Cholesterol Direct HDL Cholesterol Urine WBC (Auto) Crossmatch 10/18/18 10/18/18 10/18/18 05:18 08:11 12:23 WBC RBC Hgb Hct MCHC RDW Seg Neuts % (Manual) Lymphocytes % (Manual) Seg Neutrophils # Man Lymphocytes # (Manual) Monocytes # (Manual) Eosinophils # (Manual) Basophils # (Manual) PT INR POC ABG pCO2 POC ABG pO2 VBG pH Sodium Potassium 3.0 L D Chloride 110.2 H Carbon Dioxide 20 L BUN Creatinine Glucose 185 H POC Glucose 185 H 217 H Lactic Acid Calcium 6.8 L Phosphorus Magnesium Alkaline Phosphatase Total Creatine Kinase Troponin T C-Reactive Protein Total Protein Albumin Cholesterol LDL Cholesterol Direct HDL Cholesterol Urine WBC (Auto) Crossmatch 10/18/18 10/18/18 10/18/18 13:41 16:32 16:35 WBC RBC Hgb Hct MCHC RDW Seg Neuts % (Manual) Lymphocytes % (Manual) Seg Neutrophils # Man Lymphocytes # (Manual) Monocytes # (Manual) Eosinophils # (Manual) Basophils # (Manual) PT INR POC ABG pCO2 POC ABG pO2 VBG pH Sodium Potassium Chloride Carbon Dioxide BUN Creatinine Glucose POC Glucose 118 H Lactic Acid Calcium Phosphorus Magnesium Alkaline Phosphatase Total Creatine Kinase Troponin T C-Reactive Protein 6.80 H Total Protein Albumin Cholesterol LDL Cholesterol Direct HDL Cholesterol Urine WBC (Auto) 22.0 H Crossmatch 10/18/18 10/19/18 10/19/18 23:45 04:00 04:00 WBC 24.1 H RBC 2.67 L Hgb 7.8 L Hct 23.3 L MCHC RDW 17.0 H Seg Neuts % (Manual) 73.0 H Lymphocytes % (Manual) Seg Neutrophils # Man 17.6 H Lymphocytes # (Manual) Monocytes # (Manual) 1.4 H Eosinophils # (Manual) 0.7 H Basophils # (Manual) PT INR POC ABG pCO2 POC ABG pO2 VBG pH Sodium Potassium 3.5 L Chloride 110.9 H Carbon Dioxide 21 L BUN Creatinine Glucose 113 H POC Glucose 147 H Lactic Acid Calcium 6.8 L Phosphorus Magnesium Alkaline Phosphatase Total Creatine Kinase Troponin T C-Reactive Protein Total Protein Albumin Cholesterol LDL Cholesterol Direct HDL Cholesterol Urine WBC (Auto) Crossmatch 10/19/18 10/19/18 10/19/18 05:16 05:17 12:19 WBC RBC Hgb Hct MCHC RDW Seg Neuts % (Manual) Lymphocytes % (Manual) Seg Neutrophils # Man Lymphocytes # (Manual) Monocytes # (Manual) Eosinophils # (Manual) Basophils # (Manual) PT 32.7 H INR 3.16 H POC ABG pCO2 POC ABG pO2 VBG pH Sodium Potassium Chloride Carbon Dioxide BUN Creatinine Glucose POC Glucose 117 H 136 H Lactic Acid Calcium Phosphorus Magnesium Alkaline Phosphatase Total Creatine Kinase Troponin T C-Reactive Protein Total Protein Albumin Cholesterol LDL Cholesterol Direct HDL Cholesterol Urine WBC (Auto) Crossmatch 10/19/18 10/19/18 10/20/18 18:05 21:53 00:06 WBC RBC Hgb Hct MCHC RDW Seg Neuts % (Manual) Lymphocytes % (Manual) Seg Neutrophils # Man Lymphocytes # (Manual) Monocytes # (Manual) Eosinophils # (Manual) Basophils # (Manual) PT INR POC ABG pCO2 POC ABG pO2 VBG pH Sodium Potassium Chloride Carbon Dioxide BUN Creatinine Glucose POC Glucose 107 H 206 H 200 H Lactic Acid Calcium Phosphorus Magnesium Alkaline Phosphatase Total Creatine Kinase Troponin T C-Reactive Protein Total Protein Albumin Cholesterol LDL Cholesterol Direct HDL Cholesterol Urine WBC (Auto) Crossmatch 10/20/18 10/20/18 10/20/18 04:14 04:14 05:20 WBC RBC Hgb Hct MCHC RDW Seg Neuts % (Manual) Lymphocytes % (Manual) Seg Neutrophils # Man Lymphocytes # (Manual) Monocytes # (Manual) Eosinophils # (Manual) Basophils # (Manual) PT 33.4 H INR 3.24 H POC ABG pCO2 POC ABG pO2 VBG pH Sodium Potassium Chloride 112.5 H Carbon Dioxide 19 L BUN Creatinine 1.7 H Glucose 107 H POC Glucose 107 H Lactic Acid Calcium 7.1 L Phosphorus Magnesium 1.60 L Alkaline Phosphatase Total Creatine Kinase Troponin T C-Reactive Protein Total Protein Albumin Cholesterol LDL Cholesterol Direct HDL Cholesterol Urine WBC (Auto) Crossmatch 10/20/18 10/20/18 10/20/18 12:13 17:32 22:23 WBC RBC Hgb Hct MCHC RDW Seg Neuts % (Manual) Lymphocytes % (Manual) Seg Neutrophils # Man Lymphocytes # (Manual) Monocytes # (Manual) Eosinophils # (Manual) Basophils # (Manual) PT INR POC ABG pCO2 POC ABG pO2 VBG pH Sodium Potassium Chloride Carbon Dioxide BUN Creatinine Glucose POC Glucose 142 H 137 H 157 H Lactic Acid Calcium Phosphorus Magnesium Alkaline Phosphatase Total Creatine Kinase Troponin T C-Reactive Protein Total Protein Albumin Cholesterol LDL Cholesterol Direct HDL Cholesterol Urine WBC (Auto) Crossmatch 10/21/18 10/21/18 10/21/18 05:11 05:11 05:11 WBC 20.7 H RBC 2.79 L Hgb 8.3 L Hct 25.6 L MCHC RDW 18.5 H Seg Neuts % (Manual) 81.0 H Lymphocytes % (Manual) 11.0 L Seg Neutrophils # Man 16.8 H Lymphocytes # (Manual) Monocytes # (Manual) Eosinophils # (Manual) Basophils # (Manual) PT 33.2 H INR 3.22 H POC ABG pCO2 POC ABG pO2 VBG pH Sodium Potassium Chloride 111.0 H Carbon Dioxide 19 L BUN Creatinine 2.2 H Glucose 127 H POC Glucose Lactic Acid Calcium 7.2 L Phosphorus Magnesium Alkaline Phosphatase Total Creatine Kinase Troponin T C-Reactive Protein Total Protein Albumin Cholesterol LDL Cholesterol Direct HDL Cholesterol Urine WBC (Auto) Crossmatch 10/21/18 10/21/18 05:28 17:06 WBC RBC Hgb Hct MCHC RDW Seg Neuts % (Manual) Lymphocytes % (Manual) Seg Neutrophils # Man Lymphocytes # (Manual) Monocytes # (Manual) Eosinophils # (Manual) Basophils # (Manual) PT INR POC ABG pCO2 POC ABG pO2 VBG pH Sodium Potassium Chloride Carbon Dioxide BUN Creatinine Glucose POC Glucose 133 H 147 H Lactic Acid Calcium Phosphorus Magnesium Alkaline Phosphatase Total Creatine Kinase Troponin T C-Reactive Protein Total Protein Albumin Cholesterol LDL Cholesterol Direct HDL Cholesterol Urine WBC (Auto) Crossmatch Chest x-ray: report reviewed (Cardiomegaly with out venous congestion.Small right lower lobe infiltrate), image reviewed Allied health notes reviewed: nursing
[2018-10-22] MEDS: HumaLOG SUB-Q SCH ×4 (00:54→18:06)
[2018-10-22] MEDS: CARDIZEM PO SCH ×3 (00:59→11:18)
[2018-10-22] MEDS: LANTUS SUB-Q SCH ×2 (01:25→22:20)
[2018-10-22 04:27] LABS: Creatinine,Urine 131.8 mg/dL (0.1-20.0); Fractional Sodium Excretion 0.2
[2018-10-22 04:29] LABS: Bacteria,Urine 2+ /HPF (Negative); Bilirubin,Urine NEG (Negative); Blood,Urine SM (Negative); Color,Urine Amber (Yellow); Mucus,Urine FEW /HPF; Urobilinogen,Urine < 2.0 mg/dL (<2.0)
[2018-10-22 04:36] LABS: WBC,Urine > 182.0 /HPF (0.0-6.0)
[2018-10-22 05:29] LABS: INR 2.96 (0.87-1.13)
[2018-10-22] MEDS: FLAGYL PO SCH ×3 (06:08→22:00)
[2018-10-22] MEDS: DUONEB *Not for PRN Use IH SCH ×3 (08:16→19:37)
[2018-10-22] MEDS: ROCEPHIN/NS 2 GM/100 ML 2 GM/100 ML BAG IV SCH (11:16)
[2018-10-22] MEDS: CORDARONE PO SCH ×2 (11:17→22:37)
[2018-10-22] MEDS: SODIUM BICARBONATE PO SCH ×2 (11:17→22:00)
[2018-10-22] MEDS: PROTONIX PO SCH (11:17)
[2018-10-22] MEDS: SODIUM CHLORIDE FLUSH SYRINGE 10 ML IV SCH ×2 (11:19→22:45)
--- NOTE | 2018-10-22 12:09 | Progress Note ---
Assessment and Plan Impression: * Acute kidney secondary to ATN * Sepsis - ?urinary source --Blood cx - NGTD --Urine cx - greater than 2 organisms * Metabolic acidosis secondary to lactic acidosis * UTI * Hypokalemia * hypomagnesemia * Anemia Plan: * Today's chemistries are still pending. He is currently nonoliguric. * Blood pressure is noted to be low and fractional excretion of sodium is 0.2% * Given a trial of intravenous colloids * Continue bicarbonate drip * Replete K prn - * Abx per primary team * Transfusion per primary team - pRBC transfusion in progress * Replete lytes prn * Dose medications for renal function * Avoid potential nephrotoxins Subjective Date of service: 10/22/18 Principal diagnosis: Acute Toxic metabolic encephalopathy; Septic Shock; Severe Sepsis; DKA Interval history: Patient is comfortable today. Denies any shortness of breath. No nausea or vomiting. Objective - Vital Signs Vital signs: Vital Signs - 12hr 10/22/18 10/22/18 10/22/18 00:11 00:18 00:21 Temperature Pulse Rate 98 H 88 94 H Pulse Rate [ Anterior Bilateral Throughout] Pulse Rate [ From Monitor] Respiratory 37 H 40 H Rate Respiratory Rate [Anterior Bilateral Throughout] Blood Pressure 88/51 88/51 O2 Sat by Pulse 94 92 Oximetry 10/22/18 10/22/18 10/22/18 00:31 00:41 00:50 Temperature Pulse Rate 94 H 95 H 94 H Pulse Rate [ Anterior Bilateral Throughout] Pulse Rate [ From Monitor] Respiratory 41 H 36 H 36 H Rate Respiratory Rate [Anterior Bilateral Throughout] Blood Pressure 88/51 88/51 88/51 O2 Sat by Pulse 94 94 94 Oximetry 10/22/18 10/22/18 10/22/18 00:59 01:00 01:11 Temperature Pulse Rate 88 97 H 94 H Pulse Rate [ Anterior Bilateral Throughout] Pulse Rate [ From Monitor] Respiratory 45 H 21 Rate Respiratory Rate [Anterior Bilateral Throughout] Blood Pressure 88/53 89/61 89/61 O2 Sat by Pulse 91 93 Oximetry 10/22/18 10/22/18 10/22/18 01:21 01:31 01:41 Temperature Pulse Rate 97 H 94 H 100 H Pulse Rate [ Anterior Bilateral Throughout] Pulse Rate [ From Monitor] Respiratory 31 H 42 H 17 Rate Respiratory Rate [Anterior Bilateral Throughout] Blood Pressure 99/61 99/61 99/61 O2 Sat by Pulse 86 85 95 Oximetry 10/22/18 10/22/18 10/22/18 01:50 02:01 02:10 Temperature Pulse Rate 96 H 97 H 99 H Pulse Rate [ Anterior Bilateral Throughout] Pulse Rate [ From Monitor] Respiratory 38 H 44 H 43 H Rate Respiratory Rate [Anterior Bilateral Throughout] Blood Pressure 99/61 99/54 O2 Sat by Pulse 87 86 91 Oximetry 10/22/18 10/22/18 10/22/18 02:20 02:30 02:40 Temperature Pulse Rate 101 H 95 H 95 H Pulse Rate [ Anterior Bilateral Throughout] Pulse Rate [ From Monitor] Respiratory 50 H 36 H 38 H Rate Respiratory Rate [Anterior Bilateral Throughout] Blood Pressure 99/54 99/54 99/54 O2 Sat by Pulse 92 92 91 Oximetry 10/22/18 10/22/18 10/22/18 02:50 03:00 03:10 Temperature Pulse Rate 96 H 96 H 97 H Pulse Rate [ Anterior Bilateral Throughout] Pulse Rate [ From Monitor] Respiratory 35 H 35 H 35 H Rate Respiratory Rate [Anterior Bilateral Throughout] Blood Pressure 99/54 111/69 111/69 O2 Sat by Pulse 93 92 93 Oximetry 10/22/18 10/22/18 10/22/18 03:20 03:30 03:40 Temperature Pulse Rate 96 H 100 H 97 H Pulse Rate [ Anterior Bilateral Throughout] Pulse Rate [ From Monitor] Respiratory 37 H 38 H 34 H Rate Respiratory Rate [Anterior Bilateral Throughout] Blood Pressure 111/69 111/69 111/69 O2 Sat by Pulse 93 93 94 Oximetry 10/22/18 10/22/18 10/22/18 03:50 04:00 04:10 Temperature 98 F Pulse Rate 98 H 97 H 100 H Pulse Rate [ Anterior Bilateral Throughout] Pulse Rate [ 96 H From Monitor] Respiratory 34 H 25 H 35 H Rate Respiratory Rate [Anterior Bilateral Throughout] Blood Pressure 111/69 96/49 96/49 O2 Sat by Pulse 94 93 93 Oximetry 10/22/18 10/22/18 10/22/18 04:18 04:20 04:30 Temperature Pulse Rate 95 H 97 H 97 H Pulse Rate [ Anterior Bilateral Throughout] Pulse Rate [ From Monitor] Respiratory 33 H 23 Rate Respiratory Rate [Anterior Bilateral Throughout] Blood Pressure 96/49 96/49 O2 Sat by Pulse 94 93 Oximetry 10/22/18 10/22/18 10/22/18 04:40 04:50 05:00 Temperature Pulse Rate 95 H 98 H 95 H Pulse Rate [ Anterior Bilateral Throughout] Pulse Rate [ From Monitor] Respiratory 33 H 30 H 32 H Rate Respiratory Rate [Anterior Bilateral Throughout] Blood Pressure 96/49 96/49 102/48 O2 Sat by Pulse 74 L 94 95 Oximetry 10/22/18 10/22/18 10/22/18 05:10 05:20 05:30 Temperature Pulse Rate 94 H 95 H 94 H Pulse Rate [ Anterior Bilateral Throughout] Pulse Rate [ From Monitor] Respiratory 33 H 32 H 28 H Rate Respiratory Rate [Anterior Bilateral Throughout] Blood Pressure 102/48 102/48 102/48 O2 Sat by Pulse 91 95 94 Oximetry 10/22/18 10/22/18 10/22/18 05:40 05:50 06:00 Temperature Pulse Rate 95 H 95 H 96 H Pulse Rate [ Anterior Bilateral Throughout] Pulse Rate [ From Monitor] Respiratory 36 H 34 H 32 H Rate Respiratory Rate [Anterior Bilateral Throughout] Blood Pressure 102/48 102/48 100/58 O2 Sat by Pulse 92 93 89 Oximetry 10/22/18 10/22/18 10/22/18 06:05 06:10 06:20 Temperature Pulse Rate 90 94 H 95 H Pulse Rate [ Anterior Bilateral Throughout] Pulse Rate [ From Monitor] Respiratory 32 H 34 H Rate Respiratory Rate [Anterior Bilateral Throughout] Blood Pressure 100/58 100/58 100/58 O2 Sat by Pulse 86 93 Oximetry 10/22/18 10/22/18 10/22/18 06:30 06:40 06:50 Temperature Pulse Rate 95 H 96 H 92 H Pulse Rate [ Anterior Bilateral Throughout] Pulse Rate [ From Monitor] Respiratory 34 H 29 H 34 H Rate Respiratory Rate [Anterior Bilateral Throughout] Blood Pressure 100/58 100/58 100/58 O2 Sat by Pulse 92 92 91 Oximetry 10/22/18 10/22/18 10/22/18 07:00 07:10 07:20 Temperature Pulse Rate 94 H 95 H 94 H Pulse Rate [ Anterior Bilateral Throughout] Pulse Rate [ From Monitor] Respiratory 27 H 32 H 30 H Rate Respiratory Rate [Anterior Bilateral Throughout] Blood Pressure 100/62 100/62 100/62 O2 Sat by Pulse 90 93 96 Oximetry 10/22/18 10/22/18 10/22/18 07:41 08:00 08:16 Temperature 98.2 F Pulse Rate Pulse Rate [ 90 Anterior Bilateral Throughout] Pulse Rate [ 94 H From Monitor] Respiratory 24 Rate Respiratory 20 Rate [Anterior Bilateral Throughout] Blood Pressure O2 Sat by Pulse 98 Oximetry 10/22/18 10/22/18 10/22/18 08:27 09:42 11:18 Temperature Pulse Rate 93 H Pulse Rate [ 92 H Anterior Bilateral Throughout] Pulse Rate [ From Monitor] Respiratory Rate Respiratory 20 Rate [Anterior Bilateral Throughout] Blood Pressure 95/59 O2 Sat by Pulse 92 Oximetry - General Appearance General appearance: well-developed, well-nourished, appears stated age EENT: PERRL, mucous membranes moist Neck: no JVD, no thyromegaly, no carotid bruit, supple Respiratory: Present: Clear to Ascultation Cardiology: regular, normal heart rate, S1S2, no murmurs Gastrointestinal: normoactive bowel sounds, other (colostomy bag in place) Integumentary: other (1+ edema) - Lab 10/21/18 05:11 10/21/18 05:11 Most recent lab results Calcium 7.2 mg/dL (8.4-10.2) L 10/21/18 05:11 Phosphorus 4.80 mg/dL (2.5-4.5) H 10/11/18 06:51 Magnesium 1.60 mg/dL (1.7-2.3) L 10/20/18 04:14 Urine Creatinine 131.8 mg/dL (0.1-20.0) H 10/22/18 04:05 Urine Sodium 28 mmol/L 10/22/18 04:05 Medications & Allergies - Medications Allergies/Adverse Reactions: Allergies No Known Allergies Allergy (Unverified 10/11/18 05:00) Home Medications: Home Medications Medication Instructions Recorded Confirmed Last Taken Type Acetaminophen [Acetaminophen ER] 650 mg PO Q6H PRN 10/11/18 10/11/18 Unknown History Allopurinol 300 mg PO QDAY 10/11/18 10/11/18 Unknown History Amlodipine Besylate [Norvasc] 5 mg PO DAILY 10/11/18 10/11/18 Unknown History Atorvastatin [Lipitor Tab] 80 mg PO QHS 10/11/18 10/11/18 Unknown History Calcium Carbonate [Calcium Antacid] 200 mg PO TID 10/11/18 10/11/18 Unknown History Collagenase Clostridium Hist. 1 applic TP BID 10/11/18 10/11/18 Unknown History [Santyl] Collagenase Clostridium Hist. 1 applic TP QPM 10/11/18 10/11/18 Unknown History [Santyl] HYDROcodone/APAP 7.5-325 [[place] 1 each PO Q4HR PRN 10/11/18 10/11/18 Unknown History 7.5/325] Metformin HCl [Glucophage] 500 mg PO BID 10/11/18 10/11/18 Unknown History Mirtazapine [Remeron] 15 mg PO HS 10/11/18 10/11/18 Unknown History Sulfamethoxazole/Trimethoprim 1 each PO BID 10/11/18 10/11/18 Unknown History [Bactrim DS TAB] Active Medications: Generic Name Dose Route Start Last Admin Trade Name Freq PRN Reason Stop Dose Admin Acetaminophen 650 mg 10/12/18 06:45 Tylenol PO Q4H PRN Pain, Mild (1-3) Albuterol 2.5 mg 10/11/18 08:21 Proventil IH Q3HRT PRN Shortness Of Breath Albuterol/Ipratropium 1 ampul 10/20/18 08:00 10/22/18 08:16 Duoneb *Not For Prn Use* IH 1 ampul TIDRT [place] Administration Amiodarone HCl 200 mg 10/18/18 22:00 10/22/18 11:17 Cordarone PO 200 mg BID [place] Administration Dextrose 0 ml 10/11/18 06:14 10/12/18 01:48 D50w (25gm) Syringe IV 20 ml ONCE PRN Administration Hypoglycemia Diltiazem HCl 30 mg 10/13/18 18:00 10/22/18 11:18 Cardizem PO 30 mg Q6HR [place] Administration Norepinephrine 4 mg in 250 mls @ 7.5 mls/hr 10/15/18 17:00 10/18/18 18:14 Levophed Drip 4 Mg/Ns 250 Ml IV 0 mcg/min TITR [place] 0 mls/hr Titration Protocol 2 MCG/MIN Ceftriaxone Sodium 2 gm in 100 mls @ 200 mls/hr 10/17/18 10:00 10/22/18 11:16 Rocephin/Ns 2 Gm/100 Ml IV 11/03/18 23:59 200 mls/hr Q24HR [place] Administration Sodium Bicarbonate 75 meq/ 1,075 mls @ 75 mls/hr 10/21/18 12:00 Sodium Chloride IV DIRECT [place] Insulin Glargine 20 units 10/13/18 22:00 10/22/18 01:25 Lantus SUB-Q 20 units QHS [place] Administration Insulin Human Lispro 0 unit 10/12/18 09:00 10/22/18 06:06 Humalog SUB-Q Not Given Q6HR [facility] Protocol Metronidazole 500 mg 10/17/18 14:00 10/22/18 06:08 Flagyl PO 11/03/18 23:59 500 mg Q8HR [place] Administration Morphine Sulfate 4 mg 10/12/18 22:30 10/16/18 02:10 Morphine IV 4 mg Q4H PRN Administration Pain , Severe (7-10) Ondansetron HCl 4 mg 10/11/18 09:30 Zofran IV Q8H PRN Nausea And Vomiting Pantoprazole Sodium 40 mg 10/14/18 10:00 10/22/18 11:17 Protonix PO 40 mg QDAY [place] Administration Sodium Bicarbonate 1,300 mg 10/15/18 13:00 10/22/18 11:17 Sodium Bicarbonate PO 1,300 mg BID [place] Administration Sodium Chloride 10 ml 10/11/18 10:00 10/22/18 11:19 Sodium Chloride Flush Syringe 10 Ml IV 10 ml BID [place] Administration Sodium Chloride 10 ml 10/11/18 09:00 Sodium Chloride Flush Syringe 10 Ml IV PRN PRN LINE FLUSH Warfarin Sodium 2.5 mg 10/22/18 17:00 Coumadin PO DAILY@1700 [facility]
--- NOTE | 2018-10-22 12:15 | Progress Note ---
Assessment and Plan Dinora is a 58 year old male presenting from [facility] ([facility]) Pt is a very poor historian, per medical records he has history of paroxysmal atrial fibrillation, hypertension, diabetes, Colosotomy and lack of coordination with Muscle weakness anal abscess with recent debridement in Aug 2018, chronic indwelling suarez who was referred to the ER from his snf for evaluation of fever and low blood pressure and altered mental status. In the ER he was found to have urosepsis, acute renal failure and DKA with elevated troponin. Patient was unable to provided any information due to incoherence of his thoughts he complained of dry mouth per the ED Physician. He denies any chest pain, palpitations or shortness of breath. A report from the [facility] revealed that he was noted this morning to be confused with shivering. Labs done the day prior to admission revealed a wbc of 31.4 per the staff. The patient in the ED was started on sepsis protocol and also pressers labs from snf done 10/10/17: wbc 31.4, hgb 9.1, plt 271 Source ?chronic colitis, small bilateral pleural effusions, ileus, anasarca, bilateral renal calculi. Acute Toxic metabolic encephalopathy - Resolved Septic Shock Severe Sepsis - Leukocytosis, blood cultures was positive for beta hemolytic streptococcus group C, urine culture is negative - Patient is currently off pressors - On IV ceftriaxone, Flagyl and vancomycin - Flagyl and Rocephin will continue for 3 weeks per ID recommendation - TTE was done and is negative for any vegetation Hyperosmolar NonKetotic Hyperglycemia - Resolved Uncontrolled DM - Currently blood sugar level is on target - Unsteadiness to insulin MALCOLM secondary to vasomotor nephropathy - Creatinine is stable - Nephrology is following Severe acute blood loss anemia on anemia of chronic disease - H&H is stable - We'll continue to monitor Metabolic acidosis - Patient's treated with bicarbonate - Neurology is following Colostomy - Colostomy care Unstagable scaral pressure ulcer POA - General surgery is following - Wound vac is in place Afib with RVR - Patient is on amiodarone and diltiazem - But it is controlled currently, patient is on Coumadin and INR is supratherapeutic - resolved Troponemia- Type 2 NSTEMI - Cardiology is following, intervention needed at this time Hypokalemia - Repleted Severe Protein calorie malnutrition - We'll consult nutrition Generalized weakness - We'll consult physical therapy once stable Disposition: Discharged to [facility] when clinically stable Subjective Date of service: 10/22/18 Principal diagnosis: Acute Toxic metabolic encephalopathy; Septic Shock; Severe Sepsis; DKA Interval history: Life port in bed. Complains of fatigue. Denies any chest pain orthopnea or paroxysmal nocturnal dyspnea Objective - Exam Narrative Exam: Constitutional: Well-nourished well-developed. In no distress Head: Normocephalic atraumatic Eyes: Pupils are equal round and reactive to light Nose: No enlarged turbinates, no septal deviation. Mouth: Moist mucous membranes. Neck: Supple no thyromegaly. No bruit. No JVD Heart: Regular rate and rhythm, S1-S2 normal. No rubs murmurs or gallop Lungs: Decreased breath sounds bilaterally. Has rhonchi Abdomen: Soft, nontender. Bowel sound are present. Extremities: No edema, no cyanosis, no clubbing. Neuro: Alert oriented Oriented x3. No focal sensory or motor deficit. Skin: No rashes or hyperpigmented spots Musculoskeletal system: No joint pain or swelling Hematological: No petechia or subcutanous hemorrhages. Immunological: No multiple septic spots on the skin Lymphatic: No generalized lymphadenopathy Psychiatry: Euthymic. Calm. - Constitutional Vitals: Vital Signs - 12hr 10/22/18 10/22/18 10/22/18 00:18 00:21 00:31 Temperature Pulse Rate 88 94 H 94 H Pulse Rate [ Anterior Bilateral Throughout] Pulse Rate [ From Monitor] Respiratory 40 H 41 H Rate Respiratory Rate [Anterior Bilateral Throughout] Blood Pressure 88/51 88/51 O2 Sat by Pulse 92 94 Oximetry 10/22/18 10/22/18 10/22/18 00:41 00:50 00:59 Temperature Pulse Rate 95 H 94 H 88 Pulse Rate [ Anterior Bilateral Throughout] Pulse Rate [ From Monitor] Respiratory 36 H 36 H Rate Respiratory Rate [Anterior Bilateral Throughout] Blood Pressure 88/51 88/51 88/53 O2 Sat by Pulse 94 94 Oximetry 10/22/18 10/22/18 10/22/18 01:00 01:11 01:21 Temperature Pulse Rate 97 H 94 H 97 H Pulse Rate [ Anterior Bilateral Throughout] Pulse Rate [ From Monitor] Respiratory 45 H 21 31 H Rate Respiratory Rate [Anterior Bilateral Throughout] Blood Pressure 89/61 89/61 99/61 O2 Sat by Pulse 91 93 86 Oximetry 10/22/18 10/22/18 10/22/18 01:31 01:41 01:50 Temperature Pulse Rate 94 H 100 H 96 H Pulse Rate [ Anterior Bilateral Throughout] Pulse Rate [ From Monitor] Respiratory 42 H 17 38 H Rate Respiratory Rate [Anterior Bilateral Throughout] Blood Pressure 99/61 99/61 99/61 O2 Sat by Pulse 85 95 87 Oximetry 10/22/18 10/22/18 10/22/18 02:01 02:10 02:20 Temperature Pulse Rate 97 H 99 H 101 H Pulse Rate [ Anterior Bilateral Throughout] Pulse Rate [ From Monitor] Respiratory 44 H 43 H 50 H Rate Respiratory Rate [Anterior Bilateral Throughout] Blood Pressure 99/54 99/54 O2 Sat by Pulse 86 91 92 Oximetry 10/22/18 10/22/18 10/22/18 02:30 02:40 02:50 Temperature Pulse Rate 95 H 95 H 96 H Pulse Rate [ Anterior Bilateral Throughout] Pulse Rate [ From Monitor] Respiratory 36 H 38 H 35 H Rate Respiratory Rate [Anterior Bilateral Throughout] Blood Pressure 99/54 99/54 99/54 O2 Sat by Pulse 92 91 93 Oximetry 10/22/18 10/22/18 10/22/18 03:00 03:10 03:20 Temperature Pulse Rate 96 H 97 H 96 H Pulse Rate [ Anterior Bilateral Throughout] Pulse Rate [ From Monitor] Respiratory 35 H 35 H 37 H Rate Respiratory Rate [Anterior Bilateral Throughout] Blood Pressure 111/69 111/69 111/69 O2 Sat by Pulse 92 93 93 Oximetry 10/22/18 10/22/18 10/22/18 03:30 03:40 03:50 Temperature Pulse Rate 100 H 97 H 98 H Pulse Rate [ Anterior Bilateral Throughout] Pulse Rate [ From Monitor] Respiratory 38 H 34 H 34 H Rate Respiratory Rate [Anterior Bilateral Throughout] Blood Pressure 111/69 111/69 111/69 O2 Sat by Pulse 93 94 94 Oximetry 10/22/18 10/22/18 10/22/18 04:00 04:10 04:18 Temperature 98 F Pulse Rate 97 H 100 H 95 H Pulse Rate [ Anterior Bilateral Throughout] Pulse Rate [ 96 H From Monitor] Respiratory 25 H 35 H Rate Respiratory Rate [Anterior Bilateral Throughout] Blood Pressure 96/49 96/49 O2 Sat by Pulse 93 93 Oximetry 10/22/18 10/22/18 10/22/18 04:20 04:30 04:40 Temperature Pulse Rate 97 H 97 H 95 H Pulse Rate [ Anterior Bilateral Throughout] Pulse Rate [ From Monitor] Respiratory 33 H 23 33 H Rate Respiratory Rate [Anterior Bilateral Throughout] Blood Pressure 96/49 96/49 96/49 O2 Sat by Pulse 94 93 74 L Oximetry 10/22/18 10/22/18 10/22/18 04:50 05:00 05:10 Temperature Pulse Rate 98 H 95 H 94 H Pulse Rate [ Anterior Bilateral Throughout] Pulse Rate [ From Monitor] Respiratory 30 H 32 H 33 H Rate Respiratory Rate [Anterior Bilateral Throughout] Blood Pressure 96/49 102/48 102/48 O2 Sat by Pulse 94 95 91 Oximetry 10/22/18 10/22/18 10/22/18 05:20 05:30 05:40 Temperature Pulse Rate 95 H 94 H 95 H Pulse Rate [ Anterior Bilateral Throughout] Pulse Rate [ From Monitor] Respiratory 32 H 28 H 36 H Rate Respiratory Rate [Anterior Bilateral Throughout] Blood Pressure 102/48 102/48 102/48 O2 Sat by Pulse 95 94 92 Oximetry 10/22/18 10/22/18 10/22/18 05:50 06:00 06:05 Temperature Pulse Rate 95 H 96 H 90 Pulse Rate [ Anterior Bilateral Throughout] Pulse Rate [ From Monitor] Respiratory 34 H 32 H Rate Respiratory Rate [Anterior Bilateral Throughout] Blood Pressure 102/48 100/58 100/58 O2 Sat by Pulse 93 89 Oximetry 10/22/18 10/22/18 10/22/18 06:10 06:20 06:30 Temperature Pulse Rate 94 H 95 H 95 H Pulse Rate [ Anterior Bilateral Throughout] Pulse Rate [ From Monitor] Respiratory 32 H 34 H 34 H Rate Respiratory Rate [Anterior Bilateral Throughout] Blood Pressure 100/58 100/58 100/58 O2 Sat by Pulse 86 93 92 Oximetry 10/22/18 10/22/18 10/22/18 06:40 06:50 07:00 Temperature Pulse Rate 96 H 92 H 94 H Pulse Rate [ Anterior Bilateral Throughout] Pulse Rate [ From Monitor] Respiratory 29 H 34 H 27 H Rate Respiratory Rate [Anterior Bilateral Throughout] Blood Pressure 100/58 100/58 100/62 O2 Sat by Pulse 92 91 90 Oximetry 10/22/18 10/22/18 10/22/18 07:10 07:20 07:41 Temperature 98.2 F Pulse Rate 95 H 94 H Pulse Rate [ Anterior Bilateral Throughout] Pulse Rate [ From Monitor] Respiratory 32 H 30 H Rate Respiratory Rate [Anterior Bilateral Throughout] Blood Pressure 100/62 100/62 O2 Sat by Pulse 93 96 Oximetry 10/22/18 10/22/18 10/22/18 08:00 08:16 08:27 Temperature Pulse Rate Pulse Rate [ 90 92 H Anterior Bilateral Throughout] Pulse Rate [ 94 H From Monitor] Respiratory 24 Rate Respiratory 20 20 Rate [Anterior Bilateral Throughout] Blood Pressure O2 Sat by Pulse 98 Oximetry 10/22/18 10/22/18 09:42 11:18 Temperature Pulse Rate 93 H Pulse Rate [ Anterior Bilateral Throughout] Pulse Rate [ From Monitor] Respiratory Rate Respiratory Rate [Anterior Bilateral Throughout] Blood Pressure 95/59 O2 Sat by Pulse 92 Oximetry - Labs CBC & Chem 7: 10/21/18 05:11 10/21/18 05:11 Labs: Abnormal lab results 10/21/18 10/22/18 10/22/18 Range/Units 17:06 00:51 04:05 PT (12.2-14.9) Sec. INR (0.87-1.13) POC Glucose 147 H 162 H (70-105) Urine WBC (Auto) > 182.0 H (0.0-6.0) /HPF Urine Creatinine (0.1-20.0) mg/dL 10/22/18 10/22/18 10/22/18 Range/Units 04:05 04:48 05:54 PT 31.1 H (12.2-14.9) Sec. INR 2.96 H (0.87-1.13) POC Glucose 136 H (70-105) Urine WBC (Auto) (0.0-6.0) /HPF Urine Creatinine 131.8 H (0.1-20.0) mg/dL
[2018-10-22 14:21] LABS: Calcium 7.2 mg/dL (8.4-10.2)
[2018-10-22] MEDS: ALBURX 25% (ALBUMIN) IV SCH ×2 (14:39→22:40)
[2018-10-22] MEDS ORDERED: COUMADIN PO SCH (17:00)
--- NOTE | 2018-10-22 17:58 | Progress Note ---
Assessment and Plan Patient sleeping at this time on O2.Patient is on 2 litres O2, O2 saturation 97%. No acute respiratory distress.Patient afebrile. Has marked leukocytosis. - Patient Problems (1) DKA (diabetic ketoacidoses) Current Visit: Yes Status: Acute Plan to address problem: Improving .ANion Gap 15. Blood sugur 141. Management as per primary care. (2) Acute renal failure Current Visit: Yes Status: Acute Plan to address problem: Management as per nephrology. (3) Paroxysmal atrial fibrillation with RVR Current Visit: Yes Status: Chronic Plan to address problem: Management as per primary care and cardiology. (4) Sacral decubitus ulcer, stage IV Current Visit: Yes Status: Chronic Plan to address problem: Wound care. Patient is on Metranidazole and ceftrioxone. (5) UTI (urinary tract infection) Current Visit: Yes Status: Acute Plan to address problem: Patient is on ceftrioxone. (6) Hypotension Current Visit: Yes Status: Acute Plan to address problem: Patient is on I/V fluids NSS. (7) Sepsis Current Visit: Yes Status: Acute Plan to address problem: Patient is on ceftrioxone and metronidazole. Subjective Date of service: 10/22/18 Principal diagnosis: Acute Toxic metabolic encephalopathy; Septic Shock; Severe Sepsis; DKA Interval history: Patient sleeping at this time on O2.Patient is on 2 litres O2, O2 saturation 97%. No acute respiratory distress.Patient afebrile. Has marked leukocytosis. Objective Vital Signs - 12hr 10/22/18 10/22/18 10/22/18 06:00 06:05 06:10 Temperature Pulse Rate 96 H 90 94 H Pulse Rate [ Anterior Bilateral Throughout] Pulse Rate [ From Monitor] Respiratory 32 H 32 H Rate Respiratory Rate [Anterior Bilateral Throughout] Blood Pressure 100/58 100/58 100/58 O2 Sat by Pulse 89 86 Oximetry 10/22/18 10/22/18 10/22/18 06:20 06:30 06:40 Temperature Pulse Rate 95 H 95 H 96 H Pulse Rate [ Anterior Bilateral Throughout] Pulse Rate [ From Monitor] Respiratory 34 H 34 H 29 H Rate Respiratory Rate [Anterior Bilateral Throughout] Blood Pressure 100/58 100/58 100/58 O2 Sat by Pulse 93 92 92 Oximetry 10/22/18 10/22/18 10/22/18 06:50 07:00 07:10 Temperature Pulse Rate 92 H 94 H 95 H Pulse Rate [ Anterior Bilateral Throughout] Pulse Rate [ From Monitor] Respiratory 34 H 27 H 32 H Rate Respiratory Rate [Anterior Bilateral Throughout] Blood Pressure 100/58 100/62 100/62 O2 Sat by Pulse 91 90 93 Oximetry 10/22/18 10/22/18 10/22/18 07:20 07:30 07:40 Temperature Pulse Rate 94 H 97 H 91 H Pulse Rate [ Anterior Bilateral Throughout] Pulse Rate [ From Monitor] Respiratory 30 H 26 H 30 H Rate Respiratory Rate [Anterior Bilateral Throughout] Blood Pressure 100/62 100/62 100/62 O2 Sat by Pulse 96 94 98 Oximetry 10/22/18 10/22/18 10/22/18 07:41 07:50 08:00 Temperature 98.2 F Pulse Rate 90 104 H Pulse Rate [ Anterior Bilateral Throughout] Pulse Rate [ 94 H From Monitor] Respiratory 32 H 31 H Rate Respiratory Rate [Anterior Bilateral Throughout] Blood Pressure 100/62 97/58 O2 Sat by Pulse 89 93 Oximetry 10/22/18 10/22/18 10/22/18 08:10 08:16 08:20 Temperature Pulse Rate 91 H 96 H Pulse Rate [ 90 Anterior Bilateral Throughout] Pulse Rate [ From Monitor] Respiratory 30 H 27 H Rate Respiratory 20 Rate [Anterior Bilateral Throughout] Blood Pressure 100/62 100/62 O2 Sat by Pulse 97 94 Oximetry 10/22/18 10/22/18 10/22/18 08:27 08:30 08:40 Temperature Pulse Rate 93 H 92 H Pulse Rate [ 92 H Anterior Bilateral Throughout] Pulse Rate [ From Monitor] Respiratory 29 H 38 H Rate Respiratory 20 Rate [Anterior Bilateral Throughout] Blood Pressure 100/62 97/58 O2 Sat by Pulse 94 100 Oximetry 10/22/18 10/22/18 10/22/18 08:50 09:00 09:10 Temperature Pulse Rate 94 H 91 H 95 H Pulse Rate [ Anterior Bilateral Throughout] Pulse Rate [ From Monitor] Respiratory 40 H 32 H 39 H Rate Respiratory Rate [Anterior Bilateral Throughout] Blood Pressure 97/58 88/50 97/58 O2 Sat by Pulse 94 95 94 Oximetry 10/22/18 10/22/18 10/22/18 09:20 09:30 09:40 Temperature Pulse Rate 93 H 93 H 90 Pulse Rate [ Anterior Bilateral Throughout] Pulse Rate [ From Monitor] Respiratory 32 H 27 H 34 H Rate Respiratory Rate [Anterior Bilateral Throughout] Blood Pressure 100/63 94/53 94/53 O2 Sat by Pulse 95 92 88 Oximetry 10/22/18 10/22/18 10/22/18 09:42 09:50 10:00 Temperature Pulse Rate 92 H 92 H Pulse Rate [ Anterior Bilateral Throughout] Pulse Rate [ From Monitor] Respiratory 36 H 38 H Rate Respiratory Rate [Anterior Bilateral Throughout] Blood Pressure 94/53 91/50 O2 Sat by Pulse 92 98 93 Oximetry 10/22/18 10/22/18 10/22/18 10:10 10:20 10:30 Temperature Pulse Rate 91 H 91 H 92 H Pulse Rate [ Anterior Bilateral Throughout] Pulse Rate [ From Monitor] Respiratory 35 H 33 H 31 H Rate Respiratory Rate [Anterior Bilateral Throughout] Blood Pressure 100/63 100/63 92/54 O2 Sat by Pulse 95 97 88 Oximetry 10/22/18 10/22/18 10/22/18 10:40 10:50 11:00 Temperature Pulse Rate 91 H 92 H 96 H Pulse Rate [ Anterior Bilateral Throughout] Pulse Rate [ From Monitor] Respiratory 31 H 24 27 H Rate Respiratory Rate [Anterior Bilateral Throughout] Blood Pressure 92/54 92/54 95/59 O2 Sat by Pulse 91 97 93 Oximetry 10/22/18 10/22/18 10/22/18 11:10 11:18 11:20 Temperature Pulse Rate 92 H 93 H 94 H Pulse Rate [ Anterior Bilateral Throughout] Pulse Rate [ From Monitor] Respiratory 32 H 31 H Rate Respiratory Rate [Anterior Bilateral Throughout] Blood Pressure 95/59 95/59 95/59 O2 Sat by Pulse 94 95 Oximetry 10/22/18 10/22/18 10/22/18 11:30 11:40 11:50 Temperature Pulse Rate 92 H 91 H 92 H Pulse Rate [ Anterior Bilateral Throughout] Pulse Rate [ From Monitor] Respiratory 35 H 33 H 34 H Rate Respiratory Rate [Anterior Bilateral Throughout] Blood Pressure 91/46 95/59 95/59 O2 Sat by Pulse 94 94 94 Oximetry 10/22/18 10/22/18 10/22/18 12:00 12:10 12:20 Temperature 98.3 F Pulse Rate 90 90 90 Pulse Rate [ Anterior Bilateral Throughout] Pulse Rate [ 90 From Monitor] Respiratory 36 H 32 H 32 H Rate Respiratory Rate [Anterior Bilateral Throughout] Blood Pressure 103/64 103/64 103/64 O2 Sat by Pulse 94 96 96 Oximetry 10/22/18 10/22/18 10/22/18 12:30 12:40 12:50 Temperature Pulse Rate 94 H 90 90 Pulse Rate [ Anterior Bilateral Throughout] Pulse Rate [ From Monitor] Respiratory 24 30 H 28 H Rate Respiratory Rate [Anterior Bilateral Throughout] Blood Pressure 97/58 97/58 97/58 O2 Sat by Pulse 96 95 96 Oximetry 10/22/18 10/22/18 10/22/18 13:00 13:10 13:20 Temperature Pulse Rate 91 H 91 H 93 H Pulse Rate [ Anterior Bilateral Throughout] Pulse Rate [ From Monitor] Respiratory 29 H 32 H 28 H Rate Respiratory Rate [Anterior Bilateral Throughout] Blood Pressure 90/55 97/58 97/58 O2 Sat by Pulse 95 98 95 Oximetry 10/22/18 10/22/18 10/22/18 13:30 13:40 13:50 Temperature Pulse Rate 90 87 95 H Pulse Rate [ Anterior Bilateral Throughout] Pulse Rate [ From Monitor] Respiratory 41 H 31 H 18 Rate Respiratory Rate [Anterior Bilateral Throughout] Blood Pressure 88/47 90/55 90/55 O2 Sat by Pulse 93 96 95 Oximetry 10/22/18 10/22/18 10/22/18 14:00 14:10 14:20 Temperature Pulse Rate 93 H 89 91 H Pulse Rate [ Anterior Bilateral Throughout] Pulse Rate [ From Monitor] Respiratory 19 31 H 30 H Rate Respiratory Rate [Anterior Bilateral Throughout] Blood Pressure 99/58 99/58 99/58 O2 Sat by Pulse 99 96 97 Oximetry 10/22/18 10/22/18 10/22/18 14:30 14:34 14:40 Temperature Pulse Rate 94 H 92 H Pulse Rate [ 93 H Anterior Bilateral Throughout] Pulse Rate [ From Monitor] Respiratory 33 H 40 H Rate Respiratory 20 Rate [Anterior Bilateral Throughout] Blood Pressure 86/48 86/48 O2 Sat by Pulse 96 100 Oximetry 10/22/18 10/22/18 10/22/18 14:49 14:50 15:00 Temperature Pulse Rate 93 H 91 H Pulse Rate [ 93 H Anterior Bilateral Throughout] Pulse Rate [ From Monitor] Respiratory 37 H 36 H Rate Respiratory 22 Rate [Anterior Bilateral Throughout] Blood Pressure 86/48 101/68 O2 Sat by Pulse 100 99 Oximetry 10/22/18 10/22/18 10/22/18 15:10 15:20 15:30 Temperature Pulse Rate 90 91 H 92 H Pulse Rate [ Anterior Bilateral Throughout] Pulse Rate [ From Monitor] Respiratory 38 H 37 H 36 H Rate Respiratory Rate [Anterior Bilateral Throughout] Blood Pressure 101/68 101/68 92/53 O2 Sat by Pulse 99 99 96 Oximetry 10/22/18 10/22/18 10/22/18 15:40 15:50 16:00 Temperature 99.0 F Pulse Rate 89 91 H 94 H Pulse Rate [ Anterior Bilateral Throughout] Pulse Rate [ 94 H From Monitor] Respiratory 39 H 37 H 40 H Rate Respiratory Rate [Anterior Bilateral Throughout] Blood Pressure 92/53 92/53 103/65 O2 Sat by Pulse 98 95 92 Oximetry 10/22/18 10/22/18 10/22/18 16:10 16:20 16:30 Temperature Pulse Rate 95 H 92 H 91 H Pulse Rate [ Anterior Bilateral Throughout] Pulse Rate [ From Monitor] Respiratory 28 H 21 39 H Rate Respiratory Rate [Anterior Bilateral Throughout] Blood Pressure 103/65 103/65 90/51 O2 Sat by Pulse 95 91 94 Oximetry Constitutional: no acute distress, alert, other (elderly looking AAM, normocephalic and atraumatic with mildly increased resp effort at rest) Eyes: non-icteric ENT: oropharynx dry, other (Mallampati 2) Neck: supple, no lymphadenopathy, no JVD Effort: mildly labored Ascultation: Bilateral: clear Percussion: Bilateral: not dull Cardiovascular: irregular rhythm, other (No R/M) Gastrointestinal: hypoactive bowel sounds, soft, non-tender, non-distended Integumentary: rash, decubitus ulcer (sacral) Extremities: no cyanosis, no edema, pulses normal, no ischemia or petechiae Neurologic: normal mental status, non-focal exam (grossly), pupils equal and round, other (weak lower extremities) Psychiatric: mood appropriate, affect normal CBC and BMP: 10/23/18 07:08 10/23/18 11:04 ABG, PT/INR, D-dimer: ABG POC ABG pH 7.380 (7.35-7.45) 10/11/18 17:53 POC ABG pCO2 28.2 (35-45) L 10/11/18 17:53 POC ABG pO2 60 (80-105) L 10/11/18 17:53 POC ABG HCO3 16.7 10/11/18 17:53 POC ABG Total CO2 18 10/11/18 17:53 POC ABG O2 Sat 91 10/11/18 17:53 PT/INR, D-dimer PT 31.1 Sec. (12.2-14.9) H 10/22/18 04:48 INR 2.96 (0.87-1.13) H 10/22/18 04:48 Abnormal lab findings: Abnormal Labs 10/11/18 10/11/18 10/11/18 05:21 05:21 05:21 WBC 22.3 H RBC 2.62 L Hgb 8.0 L Hct 24.5 L MCHC RDW 16.0 H Seg Neuts % (Manual) 90.0 H Lymphocytes % (Manual) 4.0 L Seg Neutrophils # Man 20.1 H Lymphocytes # (Manual) 0.9 L Monocytes # (Manual) Eosinophils # (Manual) Basophils # (Manual) PT 17.1 H INR 1.35 H POC ABG pCO2 POC ABG pO2 VBG pH Sodium 133 L Potassium 2.8 L* Chloride 94.5 L Carbon Dioxide 11 L BUN 69 H Creatinine 5.0 H Glucose 362 H POC Glucose Lactic Acid Calcium 7.4 L Phosphorus Magnesium Alkaline Phosphatase Total Creatine Kinase Troponin T 0.116 H* C-Reactive Protein Total Protein 6.2 L Albumin 2.1 L Cholesterol 26 L LDL Cholesterol Direct 4 L HDL Cholesterol 7 L Urine WBC (Auto) Urine Creatinine Crossmatch 10/11/18 10/11/18 10/11/18 05:21 05:21 05:21 WBC RBC Hgb Hct MCHC RDW Seg Neuts % (Manual) Lymphocytes % (Manual) Seg Neutrophils # Man Lymphocytes # (Manual) Monocytes # (Manual) Eosinophils # (Manual) Basophils # (Manual) PT INR POC ABG pCO2 POC ABG pO2 VBG pH 7.226 L Sodium Potassium Chloride Carbon Dioxide BUN Creatinine Glucose POC Glucose Lactic Acid 7.40 H* Calcium Phosphorus Magnesium Alkaline Phosphatase Total Creatine Kinase 1094 H Troponin T C-Reactive Protein Total Protein Albumin Cholesterol LDL Cholesterol Direct HDL Cholesterol Urine WBC (Auto) Urine Creatinine Crossmatch 10/11/18 10/11/18 10/11/18 06:08 06:51 06:51 WBC RBC Hgb Hct MCHC RDW Seg Neuts % (Manual) Lymphocytes % (Manual) Seg Neutrophils # Man Lymphocytes # (Manual) Monocytes # (Manual) Eosinophils # (Manual) Basophils # (Manual) PT INR POC ABG pCO2 POC ABG pO2 VBG pH Sodium 132 L Potassium 3.1 L Chloride 94.3 L Carbon Dioxide 10 L BUN 68 H Creatinine 5.8 H Glucose 402 H POC Glucose Lactic Acid 7.80 H* Calcium 7.8 L Phosphorus 4.80 H Magnesium 0.90 L* Alkaline Phosphatase Total Creatine Kinase Troponin T C-Reactive Protein Total Protein Albumin Cholesterol LDL Cholesterol Direct HDL Cholesterol Urine WBC (Auto) > 182.0 H Urine Creatinine Crossmatch 10/11/18 10/11/18 10/11/18 08:56 09:05 10:23 WBC RBC Hgb Hct MCHC RDW Seg Neuts % (Manual) Lymphocytes % (Manual) Seg Neutrophils # Man Lymphocytes # (Manual) Monocytes # (Manual) Eosinophils # (Manual) Basophils # (Manual) PT INR POC ABG pCO2 POC ABG pO2 VBG pH Sodium Potassium Chloride Carbon Dioxide BUN Creatinine Glucose POC Glucose 367 H 305 H Lactic Acid Calcium Phosphorus Magnesium Alkaline Phosphatase Total Creatine Kinase Troponin T C-Reactive Protein Total Protein Albumin Cholesterol LDL Cholesterol Direct HDL Cholesterol Urine WBC (Auto) Urine Creatinine Crossmatch See Detail 10/11/18 10/11/18 10/11/18 11:12 12:17 12:18 WBC RBC Hgb Hct MCHC RDW Seg Neuts % (Manual) Lymphocytes % (Manual) Seg Neutrophils # Man Lymphocytes # (Manual) Monocytes # (Manual) Eosinophils # (Manual) Basophils # (Manual) PT INR POC ABG pCO2 POC ABG pO2 VBG pH Sodium 135 L Potassium 2.8 L* Chloride 97.9 L Carbon Dioxide 14 L BUN 67 H Creatinine 6.0 H Glucose 246 H POC Glucose 299 H 261 H Lactic Acid Calcium 7.5 L Phosphorus Magnesium Alkaline Phosphatase Total Creatine Kinase 1110 H Troponin T C-Reactive Protein Total Protein Albumin Cholesterol LDL Cholesterol Direct HDL Cholesterol Urine WBC (Auto) Urine Creatinine Crossmatch 10/11/18 10/11/18 10/11/18 13:05 14:13 14:34 WBC RBC Hgb Hct MCHC RDW Seg Neuts % (Manual) Lymphocytes % (Manual) Seg Neutrophils # Man Lymphocytes # (Manual) Monocytes # (Manual) Eosinophils # (Manual) Basophils # (Manual) PT INR POC ABG pCO2 POC ABG pO2 VBG pH Sodium 135 L Potassium 2.7 L* Chloride Carbon Dioxide 18 L BUN 68 H Creatinine 5.0 H Glucose 191 H POC Glucose 251 H 233 H Lactic Acid Calcium 7.1 L Phosphorus Magnesium Alkaline Phosphatase Total Creatine Kinase Troponin T C-Reactive Protein Total Protein Albumin Cholesterol LDL Cholesterol Direct HDL Cholesterol Urine WBC (Auto) Urine Creatinine Crossmatch 10/11/18 10/11/18 10/11/18 15:08 16:00 17:20 WBC RBC Hgb Hct MCHC RDW Seg Neuts % (Manual) Lymphocytes % (Manual) Seg Neutrophils # Man Lymphocytes # (Manual) Monocytes # (Manual) Eosinophils # (Manual) Basophils # (Manual) PT INR POC ABG pCO2 POC ABG pO2 VBG pH Sodium Potassium Chloride Carbon Dioxide BUN Creatinine Glucose POC Glucose 213 H 224 H 187 H Lactic Acid Calcium Phosphorus Magnesium Alkaline Phosphatase Total Creatine Kinase Troponin T C-Reactive Protein Total Protein Albumin Cholesterol LDL Cholesterol Direct HDL Cholesterol Urine WBC (Auto) Urine Creatinine Crossmatch 10/11/18 10/11/18 10/11/18 17:53 17:58 18:12 WBC RBC Hgb Hct MCHC RDW Seg Neuts % (Manual) Lymphocytes % (Manual) Seg Neutrophils # Man Lymphocytes # (Manual) Monocytes # (Manual) Eosinophils # (Manual) Basophils # (Manual) PT INR POC ABG pCO2 28.2 L POC ABG pO2 60 L VBG pH Sodium Potassium Chloride Carbon Dioxide BUN Creatinine Glucose POC Glucose 189 H Lactic Acid Calcium Phosphorus Magnesium Alkaline Phosphatase Total Creatine Kinase 933 H Troponin T C-Reactive Protein Total Protein Albumin Cholesterol LDL Cholesterol Direct HDL Cholesterol Urine WBC (Auto) Urine Creatinine Crossmatch 10/11/18 10/11/18 10/11/18 18:58 20:16 21:10 WBC RBC Hgb Hct MCHC RDW Seg Neuts % (Manual) Lymphocytes % (Manual) Seg Neutrophils # Man Lymphocytes # (Manual) Monocytes # (Manual) Eosinophils # (Manual) Basophils # (Manual) PT INR POC ABG pCO2 POC ABG pO2 VBG pH Sodium Potassium Chloride Carbon Dioxide BUN Creatinine Glucose POC Glucose 192 H 179 H 160 H Lactic Acid Calcium Phosphorus Magnesium Alkaline Phosphatase Total Creatine Kinase Troponin T C-Reactive Protein Total Protein Albumin Cholesterol LDL Cholesterol Direct HDL Cholesterol Urine WBC (Auto) Urine Creatinine Crossmatch 10/11/18 10/11/18 10/11/18 22:14 22:42 23:09 WBC RBC Hgb Hct MCHC RDW Seg Neuts % (Manual) Lymphocytes % (Manual) Seg Neutrophils # Man Lymphocytes # (Manual) Monocytes # (Manual) Eosinophils # (Manual) Basophils # (Manual) PT INR POC ABG pCO2 POC ABG pO2 VBG pH Sodium 136 L Potassium 2.9 L* Chloride Carbon Dioxide 17 L BUN 61 H Creatinine 4.0 H Glucose 122 H POC Glucose 145 H 129 H Lactic Acid Calcium 6.6 L Phosphorus Magnesium Alkaline Phosphatase Total Creatine Kinase Troponin T C-Reactive Protein Total Protein Albumin Cholesterol LDL Cholesterol Direct HDL Cholesterol Urine WBC (Auto) Urine Creatinine Crossmatch 10/11/18 10/11/18 10/11/18 Unknown Unknown Unknown WBC RBC Hgb Hct MCHC RDW Seg Neuts % (Manual) Lymphocytes % (Manual) Seg Neutrophils # Man Lymphocytes # (Manual) Monocytes # (Manual) Eosinophils # (Manual) Basophils # (Manual) PT INR POC ABG pCO2 POC ABG pO2 VBG pH Sodium 133 L Potassium 3.0 L Chloride 93.7 L Carbon Dioxide 9 L* BUN 67 H Creatinine 5.9 H Glucose 406 H POC Glucose Lactic Acid 8.50 H* Calcium 7.6 L Phosphorus Magnesium Alkaline Phosphatase Total Creatine Kinase Troponin T C-Reactive Protein Total Protein Albumin Cholesterol LDL Cholesterol Direct HDL Cholesterol Urine WBC (Auto) > 182.0 H Urine Creatinine Crossmatch 10/12/18 10/12/18 10/12/18 00:18 01:42 02:03 WBC RBC Hgb Hct MCHC RDW Seg Neuts % (Manual) Lymphocytes % (Manual) Seg Neutrophils # Man Lymphocytes # (Manual) Monocytes # (Manual) Eosinophils # (Manual) Basophils # (Manual) PT INR POC ABG pCO2 POC ABG pO2 VBG pH Sodium Potassium Chloride Carbon Dioxide BUN Creatinine Glucose POC Glucose 113 H 51 L 116 H Lactic Acid Calcium Phosphorus Magnesium Alkaline Phosphatase Total Creatine Kinase Troponin T C-Reactive Protein Total Protein Albumin Cholesterol LDL Cholesterol Direct HDL Cholesterol Urine WBC (Auto) Urine Creatinine Crossmatch 10/12/18 10/12/18 10/12/18 03:09 04:20 04:20 WBC 26.8 H RBC 2.22 L Hgb 6.7 L Hct 19.4 L* MCHC 35 H RDW 15.8 H Seg Neuts % (Manual) Lymphocytes % (Manual) Seg Neutrophils # Man Lymphocytes # (Manual) Monocytes # (Manual) Eosinophils # (Manual) Basophils # (Manual) PT INR POC ABG pCO2 POC ABG pO2 VBG pH Sodium Potassium 2.6 L* Chloride Carbon Dioxide 20 L BUN 56 H Creatinine 4.0 H Glucose 134 H POC Glucose 129 H Lactic Acid Calcium 6.4 L Phosphorus Magnesium 1.30 L Alkaline Phosphatase Total Creatine Kinase Troponin T C-Reactive Protein Total Protein 5.8 L Albumin 1.8 L Cholesterol LDL Cholesterol Direct HDL Cholesterol Urine WBC (Auto) Urine Creatinine Crossmatch 10/12/18 10/12/18 10/12/18 04:22 05:25 06:25 WBC RBC Hgb Hct MCHC RDW Seg Neuts % (Manual) Lymphocytes % (Manual) Seg Neutrophils # Man Lymphocytes # (Manual) Monocytes # (Manual) Eosinophils # (Manual) Basophils # (Manual) PT INR POC ABG pCO2 POC ABG pO2 VBG pH Sodium Potassium 2.7 L* Chloride Carbon Dioxide 19 L BUN 51 H Creatinine 3.6 H Glucose 113 H POC Glucose 186 H 131 H Lactic Acid Calcium 6.4 L Phosphorus Magnesium Alkaline Phosphatase Total Creatine Kinase Troponin T C-Reactive Protein Total Protein Albumin Cholesterol LDL Cholesterol Direct HDL Cholesterol Urine WBC (Auto) Urine Creatinine Crossmatch 10/12/18 10/12/18 10/12/18 07:34 08:28 09:29 WBC RBC Hgb Hct MCHC RDW Seg Neuts % (Manual) Lymphocytes % (Manual) Seg Neutrophils # Man Lymphocytes # (Manual) Monocytes # (Manual) Eosinophils # (Manual) Basophils # (Manual) PT INR POC ABG pCO2 POC ABG pO2 VBG pH Sodium Potassium Chloride Carbon Dioxide BUN Creatinine Glucose POC Glucose 120 H 110 H 140 H Lactic Acid Calcium Phosphorus Magnesium Alkaline Phosphatase Total Creatine Kinase Troponin T C-Reactive Protein Total Protein Albumin Cholesterol LDL Cholesterol Direct HDL Cholesterol Urine WBC (Auto) Urine Creatinine Crossmatch 10/12/18 10/12/18 10/12/18 11:55 12:55 12:55 WBC RBC Hgb 7.1 L Hct 20.6 L MCHC RDW Seg Neuts % (Manual) Lymphocytes % (Manual) Seg Neutrophils # Man Lymphocytes # (Manual) Monocytes # (Manual) Eosinophils # (Manual) Basophils # (Manual) PT INR POC ABG pCO2 POC ABG pO2 VBG pH Sodium 136 L Potassium 2.9 L* Chloride Carbon Dioxide 16 L BUN 48 H Creatinine 3.1 H Glucose 258 H POC Glucose 219 H Lactic Acid Calcium 6.3 L Phosphorus Magnesium Alkaline Phosphatase Total Creatine Kinase Troponin T C-Reactive Protein Total Protein Albumin Cholesterol LDL Cholesterol Direct HDL Cholesterol Urine WBC (Auto) Urine Creatinine Crossmatch 10/12/18 10/12/18 10/12/18 12:55 17:49 19:23 WBC RBC Hgb 7.7 L Hct 22.9 L MCHC RDW Seg Neuts % (Manual) Lymphocytes % (Manual) Seg Neutrophils # Man Lymphocytes # (Manual) Monocytes # (Manual) Eosinophils # (Manual) Basophils # (Manual) PT INR POC ABG pCO2 POC ABG pO2 VBG pH Sodium Potassium Chloride Carbon Dioxide BUN Creatinine Glucose POC Glucose 344 H Lactic Acid Calcium Phosphorus Magnesium 4.80 H Alkaline Phosphatase Total Creatine Kinase Troponin T C-Reactive Protein Total Protein Albumin Cholesterol LDL Cholesterol Direct HDL Cholesterol Urine WBC (Auto) Urine Creatinine Crossmatch 10/12/18 10/13/18 10/13/18 22:21 00:15 05:28 WBC RBC Hgb Hct MCHC RDW Seg Neuts % (Manual) Lymphocytes % (Manual) Seg Neutrophils # Man Lymphocytes # (Manual) Monocytes # (Manual) Eosinophils # (Manual) Basophils # (Manual) PT INR POC ABG pCO2 POC ABG pO2 VBG pH Sodium Potassium Chloride Carbon Dioxide BUN Creatinine Glucose POC Glucose 367 H 392 H 356 H Lactic Acid Calcium Phosphorus Magnesium Alkaline Phosphatase Total Creatine Kinase Troponin T C-Reactive Protein Total Protein Albumin Cholesterol LDL Cholesterol Direct HDL Cholesterol Urine WBC (Auto) Urine Creatinine Crossmatch 10/13/18 10/13/18 10/13/18 05:30 05:30 06:37 WBC 19.2 H RBC 2.67 L Hgb 7.9 L Hct 23.2 L MCHC RDW 16.4 H Seg Neuts % (Manual) Lymphocytes % (Manual) Seg Neutrophils # Man Lymphocytes # (Manual) Monocytes # (Manual) Eosinophils # (Manual) Basophils # (Manual) PT INR POC ABG pCO2 POC ABG pO2 VBG pH Sodium 135 L Potassium 2.8 L* Chloride Carbon Dioxide 17 L BUN 37 H Creatinine 2.0 H Glucose 383 H POC Glucose 413 H Lactic Acid Calcium 6.6 L Phosphorus Magnesium Alkaline Phosphatase Total Creatine Kinase Troponin T C-Reactive Protein Total Protein Albumin Cholesterol LDL Cholesterol Direct HDL Cholesterol Urine WBC (Auto) Urine Creatinine Crossmatch 10/13/18 10/13/18 10/13/18 11:15 12:46 17:47 WBC RBC Hgb Hct MCHC RDW Seg Neuts % (Manual) Lymphocytes % (Manual) Seg Neutrophils # Man Lymphocytes # (Manual) Monocytes # (Manual) Eosinophils # (Manual) Basophils # (Manual) PT INR POC ABG pCO2 POC ABG pO2 VBG pH Sodium Potassium 3.2 L Chloride Carbon Dioxide BUN Creatinine Glucose POC Glucose 220 H 181 H Lactic Acid Calcium Phosphorus Magnesium Alkaline Phosphatase Total Creatine Kinase Troponin T C-Reactive Protein Total Protein Albumin Cholesterol LDL Cholesterol Direct HDL Cholesterol Urine WBC (Auto) Urine Creatinine Crossmatch 10/13/18 10/13/18 10/13/18 19:45 22:19 23:53 WBC RBC Hgb Hct MCHC RDW Seg Neuts % (Manual) Lymphocytes % (Manual) Seg Neutrophils # Man Lymphocytes # (Manual) Monocytes # (Manual) Eosinophils # (Manual) Basophils # (Manual) PT INR POC ABG pCO2 POC ABG pO2 VBG pH Sodium Potassium Chloride Carbon Dioxide BUN Creatinine Glucose POC Glucose 185 H 153 H 152 H Lactic Acid Calcium Phosphorus Magnesium Alkaline Phosphatase Total Creatine Kinase Troponin T C-Reactive Protein Total Protein Albumin Cholesterol LDL Cholesterol Direct HDL Cholesterol Urine WBC (Auto) Urine Creatinine Crossmatch 10/14/18 10/14/18 10/14/18 02:38 04:36 04:36 WBC 19.8 H RBC 3.02 L Hgb 8.9 L Hct 26.1 L MCHC RDW 16.7 H Seg Neuts % (Manual) Lymphocytes % (Manual) Seg Neutrophils # Man Lymphocytes # (Manual) Monocytes # (Manual) Eosinophils # (Manual) Basophils # (Manual) PT INR POC ABG pCO2 POC ABG pO2 VBG pH Sodium Potassium 2.9 L* Chloride 121.6 H Carbon Dioxide 16 L BUN 25 H Creatinine 1.6 H Glucose 117 H POC Glucose 142 H Lactic Acid Calcium 7.0 L Phosphorus Magnesium Alkaline Phosphatase Total Creatine Kinase Troponin T C-Reactive Protein Total Protein Albumin Cholesterol LDL Cholesterol Direct HDL Cholesterol Urine WBC (Auto) Urine Creatinine Crossmatch 10/14/18 10/14/18 10/14/18 04:36 09:45 10:59 WBC RBC Hgb Hct MCHC RDW Seg Neuts % (Manual) Lymphocytes % (Manual) Seg Neutrophils # Man Lymphocytes # (Manual) Monocytes # (Manual) Eosinophils # (Manual) Basophils # (Manual) PT INR POC ABG pCO2 POC ABG pO2 VBG pH Sodium Potassium 3.2 L Chloride Carbon Dioxide BUN Creatinine Glucose POC Glucose 110 H Lactic Acid Calcium Phosphorus Magnesium 1.20 L Alkaline Phosphatase Total Creatine Kinase Troponin T C-Reactive Protein Total Protein Albumin Cholesterol LDL Cholesterol Direct HDL Cholesterol Urine WBC (Auto) Urine Creatinine Crossmatch 10/14/18 10/14/18 10/14/18 14:22 17:41 22:58 WBC RBC Hgb Hct MCHC RDW Seg Neuts % (Manual) Lymphocytes % (Manual) Seg Neutrophils # Man Lymphocytes # (Manual) Monocytes # (Manual) Eosinophils # (Manual) Basophils # (Manual) PT INR POC ABG pCO2 POC ABG pO2 VBG pH Sodium Potassium Chloride Carbon Dioxide BUN Creatinine Glucose POC Glucose 106 H 116 H 134 H Lactic Acid Calcium Phosphorus Magnesium Alkaline Phosphatase Total Creatine Kinase Troponin T C-Reactive Protein Total Protein Albumin Cholesterol LDL Cholesterol Direct HDL Cholesterol Urine WBC (Auto) Urine Creatinine Crossmatch 10/15/18 10/15/18 10/15/18 06:14 11:21 11:21 WBC 31.9 H RBC 2.99 L Hgb 8.6 L Hct 26.4 L MCHC RDW 16.9 H Seg Neuts % (Manual) 92.0 H Lymphocytes % (Manual) 7.0 L Seg Neutrophils # Man 29.3 H Lymphocytes # (Manual) Monocytes # (Manual) Eosinophils # (Manual) Basophils # (Manual) PT INR POC ABG pCO2 POC ABG pO2 VBG pH Sodium Potassium Chloride 111.6 H Carbon Dioxide 14 L BUN Creatinine Glucose 175 H POC Glucose 184 H Lactic Acid Calcium 7.2 L Phosphorus Magnesium Alkaline Phosphatase Total Creatine Kinase Troponin T C-Reactive Protein Total Protein Albumin Cholesterol LDL Cholesterol Direct HDL Cholesterol Urine WBC (Auto) Urine Creatinine Crossmatch 10/15/18 10/15/18 10/15/18 11:21 11:27 14:43 WBC RBC Hgb Hct MCHC RDW Seg Neuts % (Manual) Lymphocytes % (Manual) Seg Neutrophils # Man Lymphocytes # (Manual) Monocytes # (Manual) Eosinophils # (Manual) Basophils # (Manual) PT INR POC ABG pCO2 POC ABG pO2 VBG pH Sodium Potassium Chloride Carbon Dioxide BUN Creatinine Glucose POC Glucose 197 H 174 H Lactic Acid Calcium Phosphorus Magnesium 1.30 L Alkaline Phosphatase Total Creatine Kinase Troponin T C-Reactive Protein Total Protein Albumin Cholesterol LDL Cholesterol Direct HDL Cholesterol Urine WBC (Auto) Urine Creatinine Crossmatch 10/15/18 10/15/18 10/15/18 16:06 20:13 23:55 WBC RBC Hgb Hct MCHC RDW Seg Neuts % (Manual) Lymphocytes % (Manual) Seg Neutrophils # Man Lymphocytes # (Manual) Monocytes # (Manual) Eosinophils # (Manual) Basophils # (Manual) PT 26.5 H INR 2.40 H POC ABG pCO2 POC ABG pO2 VBG pH Sodium Potassium Chloride Carbon Dioxide BUN Creatinine Glucose POC Glucose 131 H 132 H Lactic Acid Calcium Phosphorus Magnesium Alkaline Phosphatase Total Creatine Kinase Troponin T C-Reactive Protein Total Protein Albumin Cholesterol LDL Cholesterol Direct HDL Cholesterol Urine WBC (Auto) Urine Creatinine Crossmatch 10/16/18 10/16/18 10/16/18 05:08 05:08 05:08 WBC 29.6 H RBC 2.99 L Hgb 8.7 L Hct 27.7 L MCHC RDW 17.9 H Seg Neuts % (Manual) Lymphocytes % (Manual) Seg Neutrophils # Man Lymphocytes # (Manual) Monocytes # (Manual) Eosinophils # (Manual) Basophils # (Manual) PT INR POC ABG pCO2 POC ABG pO2 VBG pH Sodium Potassium Chloride 119.9 H Carbon Dioxide 12 L BUN Creatinine Glucose 116 H POC Glucose Lactic Acid Calcium 6.7 L Phosphorus Magnesium 1.50 L Alkaline Phosphatase Total Creatine Kinase Troponin T C-Reactive Protein Total Protein Albumin Cholesterol LDL Cholesterol Direct HDL Cholesterol Urine WBC (Auto) Urine Creatinine Crossmatch 10/16/18 10/16/18 10/16/18 05:08 05:49 17:44 WBC RBC Hgb Hct MCHC RDW Seg Neuts % (Manual) Lymphocytes % (Manual) Seg Neutrophils # Man Lymphocytes # (Manual) Monocytes # (Manual) Eosinophils # (Manual) Basophils # (Manual) PT 22.2 H INR 1.90 H POC ABG pCO2 POC ABG pO2 VBG pH Sodium Potassium Chloride Carbon Dioxide BUN Creatinine Glucose POC Glucose 118 H 50 L Lactic Acid Calcium Phosphorus Magnesium Alkaline Phosphatase Total Creatine Kinase Troponin T C-Reactive Protein Total Protein Albumin Cholesterol LDL Cholesterol Direct HDL Cholesterol Urine WBC (Auto) Urine Creatinine Crossmatch 10/16/18 10/16/18 10/17/18 18:29 19:33 00:04 WBC RBC Hgb Hct MCHC RDW Seg Neuts % (Manual) Lymphocytes % (Manual) Seg Neutrophils # Man Lymphocytes # (Manual) Monocytes # (Manual) Eosinophils # (Manual) Basophils # (Manual) PT INR POC ABG pCO2 POC ABG pO2 VBG pH Sodium Potassium Chloride Carbon Dioxide BUN Creatinine Glucose POC Glucose 60 L 118 H 181 H Lactic Acid Calcium Phosphorus Magnesium Alkaline Phosphatase Total Creatine Kinase Troponin T C-Reactive Protein Total Protein Albumin Cholesterol LDL Cholesterol Direct HDL Cholesterol Urine WBC (Auto) Urine Creatinine Crossmatch 10/17/18 10/17/18 10/17/18 04:52 04:52 05:26 WBC RBC Hgb Hct MCHC RDW Seg Neuts % (Manual) Lymphocytes % (Manual) Seg Neutrophils # Man Lymphocytes # (Manual) Monocytes # (Manual) Eosinophils # (Manual) Basophils # (Manual) PT 20.9 H INR 1.76 H POC ABG pCO2 POC ABG pO2 VBG pH Sodium Potassium Chloride 113.4 H Carbon Dioxide 14 L BUN Creatinine Glucose 118 H POC Glucose 135 H Lactic Acid Calcium 7.0 L Phosphorus Magnesium Alkaline Phosphatase 219 H Total Creatine Kinase Troponin T C-Reactive Protein Total Protein 5.5 L Albumin 1.3 L Cholesterol LDL Cholesterol Direct HDL Cholesterol Urine WBC (Auto) Urine Creatinine Crossmatch 10/17/18 10/17/18 10/17/18 12:15 17:40 23:15 WBC RBC Hgb Hct MCHC RDW Seg Neuts % (Manual) Lymphocytes % (Manual) Seg Neutrophils # Man Lymphocytes # (Manual) Monocytes # (Manual) Eosinophils # (Manual) Basophils # (Manual) PT INR POC ABG pCO2 POC ABG pO2 VBG pH Sodium Potassium Chloride Carbon Dioxide BUN Creatinine Glucose POC Glucose 165 H 164 H 185 H Lactic Acid Calcium Phosphorus Magnesium Alkaline Phosphatase Total Creatine Kinase Troponin T C-Reactive Protein Total Protein Albumin Cholesterol LDL Cholesterol Direct HDL Cholesterol Urine WBC (Auto) Urine Creatinine Crossmatch 10/18/18 10/18/18 10/18/18 04:39 04:39 04:39 WBC 28.7 H RBC 2.97 L Hgb 8.6 L Hct 26.0 L MCHC RDW 16.8 H Seg Neuts % (Manual) 90.0 H Lymphocytes % (Manual) 5.0 L Seg Neutrophils # Man 25.8 H Lymphocytes # (Manual) Monocytes # (Manual) Eosinophils # (Manual) Basophils # (Manual) 0.3 H PT 25.0 H INR 2.22 H POC ABG pCO2 POC ABG pO2 VBG pH Sodium Potassium Chloride Carbon Dioxide BUN Creatinine Glucose POC Glucose Lactic Acid Calcium Phosphorus Magnesium 1.20 L Alkaline Phosphatase Total Creatine Kinase Troponin T C-Reactive Protein Total Protein Albumin Cholesterol LDL Cholesterol Direct HDL Cholesterol Urine WBC (Auto) Urine Creatinine Crossmatch 10/18/18 10/18/18 10/18/18 05:18 08:11 12:23 WBC RBC Hgb Hct MCHC RDW Seg Neuts % (Manual) Lymphocytes % (Manual) Seg Neutrophils # Man Lymphocytes # (Manual) Monocytes # (Manual) Eosinophils # (Manual) Basophils # (Manual) PT INR POC ABG pCO2 POC ABG pO2 VBG pH Sodium Potassium 3.0 L D Chloride 110.2 H Carbon Dioxide 20 L BUN Creatinine Glucose 185 H POC Glucose 185 H 217 H Lactic Acid Calcium 6.8 L Phosphorus Magnesium Alkaline Phosphatase Total Creatine Kinase Troponin T C-Reactive Protein Total Protein Albumin Cholesterol LDL Cholesterol Direct HDL Cholesterol Urine WBC (Auto) Urine Creatinine Crossmatch 10/18/18 10/18/18 10/18/18 13:41 16:32 16:35 WBC RBC Hgb Hct MCHC RDW Seg Neuts % (Manual) Lymphocytes % (Manual) Seg Neutrophils # Man Lymphocytes # (Manual) Monocytes # (Manual) Eosinophils # (Manual) Basophils # (Manual) PT INR POC ABG pCO2 POC ABG pO2 VBG pH Sodium Potassium Chloride Carbon Dioxide BUN Creatinine Glucose POC Glucose 118 H Lactic Acid Calcium Phosphorus Magnesium Alkaline Phosphatase Total Creatine Kinase Troponin T C-Reactive Protein 6.80 H Total Protein Albumin Cholesterol LDL Cholesterol Direct HDL Cholesterol Urine WBC (Auto) 22.0 H Urine Creatinine Crossmatch 10/18/18 10/19/18 10/19/18 23:45 04:00 04:00 WBC 24.1 H RBC 2.67 L Hgb 7.8 L Hct 23.3 L MCHC RDW 17.0 H Seg Neuts % (Manual) 73.0 H Lymphocytes % (Manual) Seg Neutrophils # Man 17.6 H Lymphocytes # (Manual) Monocytes # (Manual) 1.4 H Eosinophils # (Manual) 0.7 H Basophils # (Manual) PT INR POC ABG pCO2 POC ABG pO2 VBG pH Sodium Potassium 3.5 L Chloride 110.9 H Carbon Dioxide 21 L BUN Creatinine Glucose 113 H POC Glucose 147 H Lactic Acid Calcium 6.8 L Phosphorus Magnesium Alkaline Phosphatase Total Creatine Kinase Troponin T C-Reactive Protein Total Protein Albumin Cholesterol LDL Cholesterol Direct HDL Cholesterol Urine WBC (Auto) Urine Creatinine Crossmatch 10/19/18 10/19/18 10/19/18 05:16 05:17 12:19 WBC RBC Hgb Hct MCHC RDW Seg Neuts % (Manual) Lymphocytes % (Manual) Seg Neutrophils # Man Lymphocytes # (Manual) Monocytes # (Manual) Eosinophils # (Manual) Basophils # (Manual) PT 32.7 H INR 3.16 H POC ABG pCO2 POC ABG pO2 VBG pH Sodium Potassium Chloride Carbon Dioxide BUN Creatinine Glucose POC Glucose 117 H 136 H Lactic Acid Calcium Phosphorus Magnesium Alkaline Phosphatase Total Creatine Kinase Troponin T C-Reactive Protein Total Protein Albumin Cholesterol LDL Cholesterol Direct HDL Cholesterol Urine WBC (Auto) Urine Creatinine Crossmatch 10/19/18 10/19/18 10/20/18 18:05 21:53 00:06 WBC RBC Hgb Hct MCHC RDW Seg Neuts % (Manual) Lymphocytes % (Manual) Seg Neutrophils # Man Lymphocytes # (Manual) Monocytes # (Manual) Eosinophils # (Manual) Basophils # (Manual) PT INR POC ABG pCO2 POC ABG pO2 VBG pH Sodium Potassium Chloride Carbon Dioxide BUN Creatinine Glucose POC Glucose 107 H 206 H 200 H Lactic Acid Calcium Phosphorus Magnesium Alkaline Phosphatase Total Creatine Kinase Troponin T C-Reactive Protein Total Protein Albumin Cholesterol LDL Cholesterol Direct HDL Cholesterol Urine WBC (Auto) Urine Creatinine Crossmatch 10/20/18 10/20/18 10/20/18 04:14 04:14 05:20 WBC RBC Hgb Hct MCHC RDW Seg Neuts % (Manual) Lymphocytes % (Manual) Seg Neutrophils # Man Lymphocytes # (Manual) Monocytes # (Manual) Eosinophils # (Manual) Basophils # (Manual) PT 33.4 H INR 3.24 H POC ABG pCO2 POC ABG pO2 VBG pH Sodium Potassium Chloride 112.5 H Carbon Dioxide 19 L BUN Creatinine 1.7 H Glucose 107 H POC Glucose 107 H Lactic Acid Calcium 7.1 L Phosphorus Magnesium 1.60 L Alkaline Phosphatase Total Creatine Kinase Troponin T C-Reactive Protein Total Protein Albumin Cholesterol LDL Cholesterol Direct HDL Cholesterol Urine WBC (Auto) Urine Creatinine Crossmatch 10/20/18 10/20/18 10/20/18 12:13 17:32 22:23 WBC RBC Hgb Hct MCHC RDW Seg Neuts % (Manual) Lymphocytes % (Manual) Seg Neutrophils # Man Lymphocytes # (Manual) Monocytes # (Manual) Eosinophils # (Manual) Basophils # (Manual) PT INR POC ABG pCO2 POC ABG pO2 VBG pH Sodium Potassium Chloride Carbon Dioxide BUN Creatinine Glucose POC Glucose 142 H 137 H 157 H Lactic Acid Calcium Phosphorus Magnesium Alkaline Phosphatase Total Creatine Kinase Troponin T C-Reactive Protein Total Protein Albumin Cholesterol LDL Cholesterol Direct HDL Cholesterol Urine WBC (Auto) Urine Creatinine Crossmatch 10/21/18 10/21/18 10/21/18 05:11 05:11 05:11 WBC 20.7 H RBC 2.79 L Hgb 8.3 L Hct 25.6 L MCHC RDW 18.5 H Seg Neuts % (Manual) 81.0 H Lymphocytes % (Manual) 11.0 L Seg Neutrophils # Man 16.8 H Lymphocytes # (Manual) Monocytes # (Manual) Eosinophils # (Manual) Basophils # (Manual) PT 33.2 H INR 3.22 H POC ABG pCO2 POC ABG pO2 VBG pH Sodium Potassium Chloride 111.0 H Carbon Dioxide 19 L BUN Creatinine 2.2 H Glucose 127 H POC Glucose Lactic Acid Calcium 7.2 L Phosphorus Magnesium Alkaline Phosphatase Total Creatine Kinase Troponin T C-Reactive Protein Total Protein Albumin Cholesterol LDL Cholesterol Direct HDL Cholesterol Urine WBC (Auto) Urine Creatinine Crossmatch 10/21/18 10/21/18 10/22/18 05:28 17:06 00:51 WBC RBC Hgb Hct MCHC RDW Seg Neuts % (Manual) Lymphocytes % (Manual) Seg Neutrophils # Man Lymphocytes # (Manual) Monocytes # (Manual) Eosinophils # (Manual) Basophils # (Manual) PT INR POC ABG pCO2 POC ABG pO2 VBG pH Sodium Potassium Chloride Carbon Dioxide BUN Creatinine Glucose POC Glucose 133 H 147 H 162 H Lactic Acid Calcium Phosphorus Magnesium Alkaline Phosphatase Total Creatine Kinase Troponin T C-Reactive Protein Total Protein Albumin Cholesterol LDL Cholesterol Direct HDL Cholesterol Urine WBC (Auto) Urine Creatinine Crossmatch 10/22/18 10/22/18 10/22/18 04:05 04:05 04:48 WBC RBC Hgb Hct MCHC RDW Seg Neuts % (Manual) Lymphocytes % (Manual) Seg Neutrophils # Man Lymphocytes # (Manual) Monocytes # (Manual) Eosinophils # (Manual) Basophils # (Manual) PT 31.1 H INR 2.96 H POC ABG pCO2 POC ABG pO2 VBG pH Sodium Potassium Chloride Carbon Dioxide BUN Creatinine Glucose POC Glucose Lactic Acid Calcium Phosphorus Magnesium Alkaline Phosphatase Total Creatine Kinase Troponin T C-Reactive Protein Total Protein Albumin Cholesterol LDL Cholesterol Direct HDL Cholesterol Urine WBC (Auto) > 182.0 H Urine Creatinine 131.8 H Crossmatch 10/22/18 10/22/18 10/22/18 05:54 11:42 13:44 WBC RBC Hgb Hct MCHC RDW Seg Neuts % (Manual) Lymphocytes % (Manual) Seg Neutrophils # Man Lymphocytes # (Manual) Monocytes # (Manual) Eosinophils # (Manual) Basophils # (Manual) PT INR POC ABG pCO2 POC ABG pO2 VBG pH Sodium Potassium 3.5 L Chloride 108.4 H Carbon Dioxide 19 L BUN 26 H Creatinine 2.7 H Glucose 141 H POC Glucose 136 H 154 H Lactic Acid Calcium 7.2 L Phosphorus Magnesium Alkaline Phosphatase Total Creatine Kinase Troponin T C-Reactive Protein Total Protein Albumin Cholesterol LDL Cholesterol Direct HDL Cholesterol Urine WBC (Auto) Urine Creatinine Crossmatch 10/22/18 17:09 WBC RBC Hgb Hct MCHC RDW Seg Neuts % (Manual) Lymphocytes % (Manual) Seg Neutrophils # Man Lymphocytes # (Manual) Monocytes # (Manual) Eosinophils # (Manual) Basophils # (Manual) PT INR POC ABG pCO2 POC ABG pO2 VBG pH Sodium Potassium Chloride Carbon Dioxide BUN Creatinine Glucose POC Glucose 127 H Lactic Acid Calcium Phosphorus Magnesium Alkaline Phosphatase Total Creatine Kinase Troponin T C-Reactive Protein Total Protein Albumin Cholesterol LDL Cholesterol Direct HDL Cholesterol Urine WBC (Auto) Urine Creatinine Crossmatch Allied health notes reviewed: nursing
--- NOTE | 2018-10-22 18:25 | Progress Note ---
Assessment and Plan Cultures: 10/11/2018 blood culture: Beta Strep group C 2 of 4 bottles 10/11/2018 urine culture: mixed growth 10/13/2018 blood culture no growth 10/18/2018 blood culture no growth today 10/18/2018 urine culture: no growth A/P: 58-year-old male with diabetes mellitus, recent admission in August 2018 for an anal abscess, colostomy was sent to the emergency room from an SNF earlier this morning after he was noted to have a fever with shaking chills. Admitted with: #1 Severe sepsis with septic shock: fever and shock resolved, off levophed, leukocytosis better 28 -- > 24-->20K. Source could be either Strep bacteremia +/- infected and necrotic sacral wound +/- UTI. New Shock ? septic or cardiogenic. resolved - CT abd showed ?chronic colitis, small bilateral pleural effusions, ileus, anasarca, bilateral renal calculi. - Repeat UA, urine culture and blood culture negative. CXR 10/15 better. #2 Strep group C bacteremia: likely source infected and necrotic sacral wound. 10/11/2018 blood culture Beta Strep group C 2 of 4 bottles. Repeat blood culture 10/13 no growth. TTE no vegetation #3 Catheter associated urinary tract infection: POA. UA showing significant pyuria. Suarez exchanged. Urine culture grew 10-100K mixed growth #4 Sacral decubitus ulcer, infected, stage 4: recent anal abscess status post debridement at [facility] in August 2018. Per surgery does not cruzito diana source of bacteremia is the infected decubitus. No bone exposed on exam. CRP=6.8. #5 Acute kidney injury/acute renal failure: Present on admission. resolved #6 Elevated troponins: Cardiology on board. #7 Acute encephalopathy: probably from sepsis. resolved #8 Acute anemia: GI consulted. Recs: f/u procal monitor leukocytosis continue ceftriaxone 2 g IV qday and flagyl 500 m PO TID for 3 weeks until 11/03/2018 to cover Strep bacteremia and sacral wound infection. Order sent to lead case manager. continue off loading Will follow MD Yaqu[facility] C: [phone] O: [phone] F: [phone] Subjective Date of service: 10/22/18 Principal diagnosis: Acute Toxic metabolic encephalopathy; Septic Shock; Severe Sepsis; DKA Interval history: Patient is alert, talking, no fever No fever. ROS: no fever, no chills, denies N/V/D, rash Objective - Exam Narrative Exam: Constitutional: Alert, cooperative. No acute distress on NC O2 Head, Ears, Nose: Normocephalic, atraumatic. External ears, nose normal Eyes: Conjunctivae/corneas clear. No icterus. No ptosis. Neck: Supple, no meningeal signs Oral: dentition poor, no thrush Cardiovascular: RRR Respiratory: Good air entry, clear to auscultation bilaterally GI: Soft, bowel sounds normal. +ostomy bag. +suarez Musculoskeletal: +bilateral leg edema. Large sacral wound with wound VAC Skin: No rash. Hem/Lymphatic: No palpable cervical or supraclavicular nodes. No lymphangitis Psych: Mood ok. Neurological: Awake, alert, but not oriented. R IJ - Constitutional Vitals: Vital Signs Temp Pulse Resp BP Pulse Ox 99.0 F 91 H 39 H 90/51 94 10/22/18 16:00 10/22/18 16:30 10/22/18 16:30 10/22/18 16:30 10/22/18 16:30 Temperature -Last 24 Hours Temperature 99.0 F Temperature 98.3 F Temperature 98.2 F Temperature 98 F Temperature 97.8 F Temperature 97.5 F - Labs CBC & Chem 7: 10/21/18 05:11 10/22/18 13:44 Labs: Abnormal lab results 10/22/18 10/22/18 10/22/18 Range/Units 00:51 04:05 04:05 PT (12.2-14.9) Sec. INR (0.87-1.13) Potassium (3.6-5.0) mmol/L Chloride (98-107) mmol/L Carbon Dioxide (22-30) mmol/L BUN (9-20) mg/dL Creatinine (0.8-1.5) mg/dL Glucose (75-100) mg/dL POC Glucose 162 H (70-105) Calcium (8.4-10.2) mg/dL Urine WBC (Auto) > 182.0 H (0.0-6.0) /HPF Urine Creatinine 131.8 H (0.1-20.0) mg/dL 02/03/19 02/03/19 02/03/19 Range/Units 04:48 05:54 11:42 PT 31.1 H (12.2-14.9) Sec. INR 2.96 H (0.87-1.13) Potassium (3.6-5.0) mmol/L Chloride (98-107) mmol/L Carbon Dioxide (22-30) mmol/L BUN (9-20) mg/dL Creatinine (0.8-1.5) mg/dL Glucose (75-100) mg/dL POC Glucose 136 H 154 H (70-105) Calcium (8.4-10.2) mg/dL Urine WBC (Auto) (0.0-6.0) /HPF Urine Creatinine (0.1-20.0) mg/dL 10/22/18 10/22/18 Range/Units 13:44 17:09 PT (12.2-14.9) Sec. INR (0.87-1.13) Potassium 3.5 L (3.6-5.0) mmol/L Chloride 108.4 H (98-107) mmol/L Carbon Dioxide 19 L (22-30) mmol/L BUN 26 H (9-20) mg/dL Creatinine 2.7 H (0.8-1.5) mg/dL Glucose 141 H (75-100) mg/dL POC Glucose 127 H (70-105) Calcium 7.2 L (8.4-10.2) mg/dL Urine WBC (Auto) (0.0-6.0) /HPF Urine Creatinine (0.1-20.0) mg/dL
[2018-10-23] MEDS: HumaLOG SUB-Q SCH ×2 (01:48)
[2018-10-23] MEDS: FLAGYL PO SCH ×2 (06:00→14:38)
[2018-10-23] MEDS: DUONEB *Not for PRN Use IH SCH ×2 (07:37→14:56)
[2018-10-23] MEDS: CARDIZEM PO SCH ×3 (07:42→12:48)
[2018-10-23 07:44] LABS: Basophils % (Auto) 0.1 % (0.0-1.8); Eosinophils # (Auto) 0.2 K/mm3 (0.0-0.4); Eosinophils % (Auto) 0.9 % (0.0-4.3); Hematocrit 25.3 % (35.5-45.6); Hemoglobin 8.2 gm/dl (11.8-15.2); Lymphocytes # (Auto) 2.1 K/mm3 (1.2-5.4); Lymphocytes % (Auto) 11.8 % (13.4-35.0); Mean Corpuscular HGB Conc 32 % (32-34); Mean Corpuscular Volume 90 fl (84-94); Monocytes # (Auto) 1.2 K/mm3 (0.0-0.8); Monocytes % (Auto) 6.8 % (0.0-7.3); Platelet Count 358 K/mm3 (140-440); Red Blood Count 2.81 M/mm3 (3.65-5.03); Red Cell Distribution Width 18.1 % (13.2-15.2)
[2018-10-23 07:54] LABS: INR 3.32 (0.87-1.13)
--- NOTE | 2018-10-23 08:43 | Progress Note ---
Assessment and Plan Impression: * Acute kidney secondary to ATN * Sepsis - ?urinary source --Blood cx - NGTD --Urine cx - greater than 2 organisms * Metabolic acidosis secondary to lactic acidosis * UTI * Hypokalemia * hypomagnesemia * Anemia Plan: * Today's chemistries are still pending. His serum creatinine was 2.7 yesterday . He is currently nonoliguric. * Blood pressure is noted to be low low normal and fractional excretion of sodium is 0.2% * Continue IV albumin * Replete K prn - * Abx per primary team * Transfusion per primary team - pRBC transfusion in progress * Replete lytes prn * Dose medications for renal function * Avoid potential nephrotoxins Subjective Date of service: 10/23/18 Principal diagnosis: Acute Toxic metabolic encephalopathy; Septic Shock; Severe Sepsis; DKA Interval history: Patient is comfortable at this time. Denies any shortness of breath. States that his appetite is poor. Objective - Vital Signs Vital signs: Vital Signs - 12hr 10/22/18 10/22/18 10/22/18 20:50 21:00 21:10 Temperature Pulse Rate 98 H 98 H 98 H Pulse Rate [ Anterior Bilateral Throughout] Pulse Rate [ From Monitor] Respiratory 34 H 39 H 36 H Rate Respiratory Rate [Anterior Bilateral Throughout] Blood Pressure 84/48 98/56 98/56 O2 Sat by Pulse 91 94 95 Oximetry 10/22/18 10/22/18 10/22/18 21:20 21:30 21:40 Temperature Pulse Rate 102 H 98 H 99 H Pulse Rate [ Anterior Bilateral Throughout] Pulse Rate [ From Monitor] Respiratory 38 H 40 H 35 H Rate Respiratory Rate [Anterior Bilateral Throughout] Blood Pressure 98/56 84/49 84/49 O2 Sat by Pulse 96 93 90 Oximetry 10/22/18 10/22/18 10/22/18 21:50 22:00 22:10 Temperature Pulse Rate 97 H 100 H 97 H Pulse Rate [ Anterior Bilateral Throughout] Pulse Rate [ From Monitor] Respiratory 37 H 35 H 36 H Rate Respiratory Rate [Anterior Bilateral Throughout] Blood Pressure 84/49 115/69 130/67 O2 Sat by Pulse 92 97 97 Oximetry 10/22/18 10/22/18 10/22/18 22:20 22:30 22:40 Temperature Pulse Rate 103 H 98 H 100 H Pulse Rate [ Anterior Bilateral Throughout] Pulse Rate [ From Monitor] Respiratory 19 34 H 33 H Rate Respiratory Rate [Anterior Bilateral Throughout] Blood Pressure 130/67 130/67 130/67 O2 Sat by Pulse 98 98 95 Oximetry 10/22/18 10/22/18 10/22/18 22:50 22:57 23:00 Temperature 98.7 F Pulse Rate 98 H 98 H Pulse Rate [ Anterior Bilateral Throughout] Pulse Rate [ From Monitor] Respiratory 35 H 28 H Rate Respiratory Rate [Anterior Bilateral Throughout] Blood Pressure 130/67 130/67 O2 Sat by Pulse 96 96 Oximetry 10/22/18 10/22/18 10/22/18 23:10 23:20 23:30 Temperature Pulse Rate 100 H 99 H 99 H Pulse Rate [ Anterior Bilateral Throughout] Pulse Rate [ From Monitor] Respiratory 34 H 28 H 32 H Rate Respiratory Rate [Anterior Bilateral Throughout] Blood Pressure 130/67 130/67 130/67 O2 Sat by Pulse 96 97 97 Oximetry 10/22/18 10/22/18 10/23/18 23:40 23:50 00:00 Temperature Pulse Rate 98 H 96 H 98 H Pulse Rate [ Anterior Bilateral Throughout] Pulse Rate [ 94 H From Monitor] Respiratory 34 H 25 H 30 H Rate Respiratory Rate [Anterior Bilateral Throughout] Blood Pressure 130/67 130/67 130/67 O2 Sat by Pulse 96 99 99 Oximetry 10/23/18 10/23/18 10/23/18 00:10 00:20 00:30 Temperature Pulse Rate 92 H 91 H 91 H Pulse Rate [ Anterior Bilateral Throughout] Pulse Rate [ From Monitor] Respiratory 28 H 36 H 30 H Rate Respiratory Rate [Anterior Bilateral Throughout] Blood Pressure 130/67 130/67 130/67 O2 Sat by Pulse 96 94 96 Oximetry 10/23/18 10/23/18 10/23/18 00:40 00:50 01:00 Temperature Pulse Rate 90 90 90 Pulse Rate [ Anterior Bilateral Throughout] Pulse Rate [ From Monitor] Respiratory 30 H 26 H 30 H Rate Respiratory Rate [Anterior Bilateral Throughout] Blood Pressure 130/67 130/67 130/67 O2 Sat by Pulse 95 96 97 Oximetry 10/23/18 10/23/18 10/23/18 01:10 01:20 01:30 Temperature Pulse Rate 88 89 88 Pulse Rate [ Anterior Bilateral Throughout] Pulse Rate [ From Monitor] Respiratory 29 H 28 H 25 H Rate Respiratory Rate [Anterior Bilateral Throughout] Blood Pressure 130/67 130/67 130/67 O2 Sat by Pulse 97 98 97 Oximetry 10/23/18 10/23/18 10/23/18 01:40 01:50 02:00 Temperature Pulse Rate 87 88 89 Pulse Rate [ 93 H Anterior Bilateral Throughout] Pulse Rate [ From Monitor] Respiratory 22 30 H 27 H Rate Respiratory 22 Rate [Anterior Bilateral Throughout] Blood Pressure 130/67 130/67 130/67 O2 Sat by Pulse 98 95 96 Oximetry 10/23/18 10/23/18 10/23/18 02:10 02:20 02:30 Temperature Pulse Rate 86 87 87 Pulse Rate [ Anterior Bilateral Throughout] Pulse Rate [ From Monitor] Respiratory 28 H 27 H 27 H Rate Respiratory Rate [Anterior Bilateral Throughout] Blood Pressure 130/67 130/67 130/67 O2 Sat by Pulse 97 97 97 Oximetry 10/23/18 10/23/18 10/23/18 02:40 02:50 03:00 Temperature Pulse Rate 87 90 88 Pulse Rate [ Anterior Bilateral Throughout] Pulse Rate [ From Monitor] Respiratory 24 42 H 28 H Rate Respiratory Rate [Anterior Bilateral Throughout] Blood Pressure 130/67 130/67 130/67 O2 Sat by Pulse 95 96 98 Oximetry 10/23/18 10/23/18 10/23/18 03:09 03:10 03:20 Temperature 98.9 F Pulse Rate 86 86 Pulse Rate [ Anterior Bilateral Throughout] Pulse Rate [ From Monitor] Respiratory 27 H 18 Rate Respiratory Rate [Anterior Bilateral Throughout] Blood Pressure 130/67 130/67 O2 Sat by Pulse 100 92 Oximetry 10/23/18 10/23/18 10/23/18 03:30 03:40 03:50 Temperature Pulse Rate 89 88 86 Pulse Rate [ Anterior Bilateral Throughout] Pulse Rate [ From Monitor] Respiratory 24 31 H 25 H Rate Respiratory Rate [Anterior Bilateral Throughout] Blood Pressure 130/67 130/67 130/67 O2 Sat by Pulse 92 92 94 Oximetry 10/23/18 10/23/18 10/23/18 04:00 04:10 04:20 Temperature Pulse Rate 89 86 84 Pulse Rate [ Anterior Bilateral Throughout] Pulse Rate [ 94 H From Monitor] Respiratory 27 H 28 H 22 Rate Respiratory Rate [Anterior Bilateral Throughout] Blood Pressure 130/67 130/67 130/67 O2 Sat by Pulse 94 95 97 Oximetry 10/23/18 10/23/18 10/23/18 04:30 04:40 04:50 Temperature Pulse Rate 87 86 87 Pulse Rate [ Anterior Bilateral Throughout] Pulse Rate [ From Monitor] Respiratory 28 H 26 H 20 Rate Respiratory Rate [Anterior Bilateral Throughout] Blood Pressure 130/67 130/67 130/67 O2 Sat by Pulse 93 95 89 Oximetry 10/23/18 10/23/18 10/23/18 05:00 05:10 05:20 Temperature Pulse Rate 85 86 82 Pulse Rate [ Anterior Bilateral Throughout] Pulse Rate [ From Monitor] Respiratory 12 34 H 29 H Rate Respiratory Rate [Anterior Bilateral Throughout] Blood Pressure 130/67 133/73 133/73 O2 Sat by Pulse 89 92 97 Oximetry 10/23/18 10/23/18 10/23/18 05:30 05:40 05:50 Temperature Pulse Rate 84 85 85 Pulse Rate [ Anterior Bilateral Throughout] Pulse Rate [ From Monitor] Respiratory 11 L 27 H 26 H Rate Respiratory Rate [Anterior Bilateral Throughout] Blood Pressure 105/65 133/73 133/73 O2 Sat by Pulse 97 97 97 Oximetry 10/23/18 10/23/18 10/23/18 06:00 06:10 06:20 Temperature Pulse Rate 85 85 86 Pulse Rate [ Anterior Bilateral Throughout] Pulse Rate [ From Monitor] Respiratory 24 22 25 H Rate Respiratory Rate [Anterior Bilateral Throughout] Blood Pressure 126/73 105/65 105/65 O2 Sat by Pulse 98 99 98 Oximetry 10/23/18 10/23/18 10/23/18 06:30 06:40 06:50 Temperature Pulse Rate 83 84 83 Pulse Rate [ Anterior Bilateral Throughout] Pulse Rate [ From Monitor] Respiratory 26 H 30 H 25 H Rate Respiratory Rate [Anterior Bilateral Throughout] Blood Pressure 119/66 119/66 119/66 O2 Sat by Pulse 98 97 98 Oximetry 10/23/18 10/23/18 10/23/18 07:00 07:10 07:20 Temperature Pulse Rate 83 86 82 Pulse Rate [ Anterior Bilateral Throughout] Pulse Rate [ From Monitor] Respiratory 26 H 26 H 34 H Rate Respiratory Rate [Anterior Bilateral Throughout] Blood Pressure 101/65 101/65 101/65 O2 Sat by Pulse 97 97 93 Oximetry 10/23/18 10/23/18 10/23/18 07:30 07:37 07:42 Temperature Pulse Rate 84 82 Pulse Rate [ 83 Anterior Bilateral Throughout] Pulse Rate [ From Monitor] Respiratory 32 H Rate Respiratory 20 Rate [Anterior Bilateral Throughout] Blood Pressure 103/70 133/75 O2 Sat by Pulse 95 97 Oximetry 10/23/18 10/23/18 07:46 08:00 Temperature 99.0 F Pulse Rate 82 Pulse Rate [ Anterior Bilateral Throughout] Pulse Rate [ From Monitor] Respiratory Rate Respiratory Rate [Anterior Bilateral Throughout] Blood Pressure 112/70 O2 Sat by Pulse Oximetry - General Appearance General appearance: well-developed, well-nourished, appears stated age EENT: PERRL, mucous membranes moist Neck: no JVD, no thyromegaly, no carotid bruit, supple Respiratory: Present: Clear to Ascultation Cardiology: regular, normal heart rate, S1S2, no murmurs Gastrointestinal: normoactive bowel sounds, other (colostomy bag in place) Integumentary: other (1+ edema) - Lab 10/23/18 07:08 10/22/18 17:51 Most recent lab results Calcium 7.2 mg/dL (8.4-10.2) L 10/22/18 13:44 Phosphorus 4.80 mg/dL (2.5-4.5) H 10/11/18 06:51 Magnesium 1.60 mg/dL (1.7-2.3) L 10/20/18 04:14 Urine Creatinine 131.8 mg/dL (0.1-20.0) H 10/22/18 04:05 Urine Sodium 28 mmol/L 10/22/18 04:05 Medications & Allergies - Medications Allergies/Adverse Reactions: Allergies No Known Allergies Allergy (Unverified 10/11/18 05:00) Home Medications: Home Medications Medication Instructions Recorded Confirmed Last Taken Type Acetaminophen [Acetaminophen ER] 650 mg PO Q6H PRN 10/11/18 10/11/18 Unknown History Allopurinol 300 mg PO QDAY 10/11/18 10/11/18 Unknown History Amlodipine Besylate [Norvasc] 5 mg PO DAILY 10/11/18 10/11/18 Unknown History Atorvastatin [Lipitor Tab] 80 mg PO QHS 10/11/18 10/11/18 Unknown History Calcium Carbonate [Calcium Antacid] 200 mg PO TID 10/11/18 10/11/18 Unknown History Collagenase Clostridium Hist. 1 applic TP BID 10/11/18 10/11/18 Unknown History [Santyl] Collagenase Clostridium Hist. 1 applic TP QPM 10/11/18 10/11/18 Unknown History [Santyl] HYDROcodone/APAP 7.5-325 [[place] 1 each PO Q4HR PRN 10/11/18 10/11/18 Unknown History 7.5/325] Metformin HCl [Glucophage] 500 mg PO BID 10/11/18 10/11/18 Unknown History Mirtazapine [Remeron] 15 mg PO HS 10/11/18 10/11/18 Unknown History Sulfamethoxazole/Trimethoprim 1 each PO BID 10/11/18 10/11/18 Unknown History [Bactrim DS TAB] Active Medications: Generic Name Dose Route Start Last Admin Trade Name Freq PRN Reason Stop Dose Admin Acetaminophen 650 mg 10/12/18 06:45 Tylenol PO Q4H PRN Pain, Mild (1-3) Albumin Human 12.5 gm 10/22/18 14:00 10/22/18 22:40 Alburx 25% (Albumin) IV 12.5 gm Q8HR FRANCISCO Administration Albuterol 2.5 mg 10/11/18 08:21 Proventil IH Q3HRT PRN Shortness Of Breath Albuterol/Ipratropium 1 ampul 10/20/18 08:00 10/23/18 07:37 Duoneb *Not For Prn Use* IH 1 ampul TIDRT FRANCISCO Administration Amiodarone HCl 200 mg 10/18/18 22:00 10/22/18 22:37 Cordarone PO 200 mg BID FRANCISCO Administration Dextrose 0 ml 10/11/18 06:14 10/12/18 01:48 D50w (25gm) Syringe IV 20 ml ONCE PRN Administration Hypoglycemia Diltiazem HCl 30 mg 10/13/18 18:00 10/23/18 07:46 Cardizem PO 30 mg Q6HR FRANCISCO Administration Ceftriaxone Sodium 2 gm in 100 mls @ 200 mls/hr 10/17/18 10:00 10/22/18 11:16 Rocephin/Ns 2 Gm/100 Ml IV 11/03/18 23:59 200 mls/hr Q24HR FRANCISCO Administration Sodium Bicarbonate 75 meq/ 1,075 mls @ 75 mls/hr 10/21/18 12:00 Sodium Chloride IV DIRECT FRANCISCO Insulin Glargine 20 units 10/13/18 22:00 10/22/18 22:20 Lantus SUB-Q 20 units QHS FRANCISCO Administration Insulin Human Lispro 0 unit 10/23/18 11:30 Humalog SUB-Q ACHS FRANCISCO Protocol Metronidazole 500 mg 10/17/18 14:00 10/23/18 06:00 Flagyl PO 11/03/18 23:59 500 mg Q8HR FRANCISCO Administration Morphine Sulfate 4 mg 10/12/18 22:30 10/16/18 02:10 Morphine IV 4 mg Q4H PRN Administration Pain , Severe (7-10) Ondansetron HCl 4 mg 10/11/18 09:30 Zofran IV Q8H PRN Nausea And Vomiting Pantoprazole Sodium 40 mg 10/14/18 10:00 10/22/18 11:17 Protonix PO 40 mg QDAY FRANCISCO Administration Sodium Bicarbonate 1,300 mg 10/15/18 13:00 10/22/18 22:00 Sodium Bicarbonate PO 1,300 mg BID FRANCISCO Administration Sodium Chloride 10 ml 10/11/18 10:00 10/22/18 22:45 Sodium Chloride Flush Syringe 10 Ml IV 10 ml BID FRANCISCO Administration Sodium Chloride 10 ml 10/11/18 09:00 Sodium Chloride Flush Syringe 10 Ml IV PRN PRN LINE FLUSH Warfarin Sodium 2.5 mg 10/22/18 17:00 10/22/18 18:36 Coumadin PO 2.5 mg DAILY@1700 FRANCISCO Administration
[2018-10-23] MEDS ORDERED: LOPRESSOR IV NR (09:10)
[2018-10-23] MEDS: PROTONIX PO SCH (10:05)
[2018-10-23] MEDS: SODIUM CHLORIDE FLUSH SYRINGE 10 ML IV SCH (10:05)
[2018-10-23] MEDS: ROCEPHIN/NS 2 GM/100 ML 2 GM/100 ML BAG IV SCH (10:05)
[2018-10-23] MEDS: SODIUM BICARBONATE PO SCH (10:05)
[2018-10-23] MEDS: CORDARONE PO SCH (10:05)
--- NOTE | 2018-10-23 10:17 | Progress Note ---
Assessment and Plan Reduce PO amio to 200mg daily. Cont all other present cardiac management. Will follow on as needed basis. The patient has been seen in conjunction with Dr. Singer who agrees with the assessment and plan of care. - Patient Problems (1) Sepsis Current Visit: Yes Status: Acute (2) Hypotension Current Visit: Yes Status: Acute (3) Paroxysmal atrial fibrillation with RVR Current Visit: Yes Status: Chronic (4) UTI (urinary tract infection) Current Visit: Yes Status: Acute (5) Elevated troponin Current Visit: Yes Status: Acute (6) Acute renal failure Current Visit: Yes Status: Acute (7) Hyperglycemic hyperosmolar nonketotic coma Current Visit: Yes Status: Acute (8) Anemia Current Visit: Yes Status: Acute (9) Hypomagnesemia Current Visit: Yes Status: Acute (10) Hypokalemia Current Visit: Yes Status: Acute (11) Sacral decubitus ulcer Current Visit: Yes Status: Chronic (12) SVT (supraventricular tachycardia) Current Visit: Yes Status: Acute Subjective Date of service: 10/23/18 Principal diagnosis: Acute Toxic metabolic encephalopathy; Septic Shock; Severe Sepsis; DKA Interval history: pt resting in bed, no apparent distress, no current cardiac complaints. in SR on telemetry. Objective Last Vital Signs Temp 99.0 F 10/23/18 08:00 Pulse 149 H 10/23/18 09:26 Resp 20 10/23/18 07:37 BP 105/56 10/23/18 09:26 Pulse Ox 97 10/23/18 07:37 - Physical Examination General: No Apparent Distress HEENT: Positive: Normocephaly, Mucus Membranes Moist Neck: Positive: neck supple, trachea midline Cardiac: Positive: Reg Rate and Rhythm, S1/S2 Lungs: Positive: Decreased Breath Sounds Neuro: Positive: Other (disoriented) Abdomen: Positive: Soft Extremities: Absent: edema - Labs and Meds Coagulation 10/23/18 Range/Units 07:04 PT 34.0 H (12.2-14.9) Sec. INR 3.32 H (0.87-1.13) CBC 10/23/18 Range/Units 07:08 WBC 17.6 H (4.5-11.0) K/mm3 RBC 2.81 L (3.65-5.03) M/mm3 Hgb 8.2 L (11.8-15.2) gm/dl Hct 25.3 L (35.5-45.6) % Plt Count 358 (140-440) K/mm3 Lymph # 2.1 (1.2-5.4) K/mm3 [place] # 1.2 H (0.0-0.8) K/mm3 Eos # 0.2 (0.0-0.4) K/mm3 Baso # 0.0 (0.0-0.1) K/mm3 Comprehensive Metabolic Panel 10/22/18 10/22/18 Range/Units 13:44 17:51 Sodium 139 141 (137-145) mmol/L Potassium 3.5 L (3.6-5.0) mmol/L Chloride 108.4 H (98-107) mmol/L Carbon Dioxide 19 L (22-30) mmol/L BUN 26 H (9-20) mg/dL Creatinine 2.7 H 2.8 H (0.8-1.5) mg/dL Glucose 141 H (75-100) mg/dL Calcium 7.2 L (8.4-10.2) mg/dL - Imaging and Cardiology EKG: image reviewed Echo: report reviewed (EF 60-65%, mild TR. ) - EKG Sinus rhythms and dysrhythmias: sinus tachycardia - Allied health notes Allied health notes reviewed: nursing
[2018-10-23] MEDS ORDERED: HumaLOG SUB-Q SCH (11:30)
--- NOTE | 2018-10-23 11:41 | Discharge Summary ---
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 10/11/18 07:46 Consult to Physician [CONS] Stat Comment: Consulting Provider: KYUNG PRATT Physician Instructions: Reason For Exam: icu management 10/11/18 08:17 Consult to Physician [CONS] Routine Comment: Consulting Provider: BENITO JAEGER Physician Instructions: Reason For Exam: SEPTIC SHOCK 10/11/18 08:18 Consult to Physician [CONS] Routine Comment: Consulting Provider: DEBBIE WETZEL Physician Instructions: Reason For Exam: MALCOLM Consult to Physician [CONS] Routine Comment: Consulting Provider: DALJIT SOLSI Physician Instructions: Reason For Exam: AFIB, SHOCK, POSTIVE TROP 10/11/18 08:21 Consult to Dietitian/Nutrition [CONS] Routine Physician Instructions: Reason For Exam: Reason for Consult: Malnutrition 10/11/18 08:40 Consult to Wound/ET Nurse [CONS] Routine Reason For Exam: wound eval 10/11/18 11:02 Occupational Therapy Evaluate and Treat [CONS] Routine Comment: Reason For Exam: deconditioning Physical Therapy Evaluation and Treat [CONS] Routine Comment: Reason For Exam: debility 10/11/18 11:45 Consult to Physician [CONS] Routine Comment: Consulting Provider: SALMA GRAHAM Physician Instructions: Reason For Exam: secral decub ulcer 10/12/18 08:15 Consult to Physician [CONS] Routine Comment: Consulting Provider: GENEVIEVE MUIR Physician Instructions: Reason For Exam: Presumed GI bleed 10/17/18 09:39 Consult to Case Management [CONS] Stat Services Needed at Discharge: Other 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 Send results to [phone] Sherrie Ren MD Primary care physician: FERNANDO ROMANO Hospitalization Reason for admission: septic shock Condition: Stable Pertinent studies: CT abdomen and pelvis CXR Hospital course: Patinet is a 58 year old male presenting from [place] ([facility]) Pt is a very poor historian, per medical records he has history of paroxysmal atrial fibrillation, hypertension, diabetes, Colosotomy and lack of coordination with Muscle weakness anal abscess with recent debridement in Aug 2018, chronic indwelling suarez who was referred to the ER from his [facility] for evaluation of fever and low blood pressure and altered mental status. In the ER he was found to have urosepsis, acute renal failure and DKA with elevated troponin. Patient was unable to provided any information due to incoherence of his thoughts he complained of dry mouth per the ED Physician. He denies any chest pain, palpitations or shortness of breath. A report from the [facility] revealed that he was noted this morning to be confused with shivering. Labs done the day prior to admission revealed a wbc of 31.4 per the staff. The patient in the ED was started on sepsis protocol and also pressers labs from [facility] done 10/10/17: wbc 31.4, hgb 9.1, plt 271 Source ?chronic colitis, small bilateral pleural effusions, ileus, anasarca, bilateral renal calculi. Acute Toxic metabolic encephalopathy - Resolved Septic Shock Severe Sepsis - Leukocytosis, blood cultures was positive for beta hemolytic streptococcus group C, urine culture was negative - Patient is currently off pressors, blood pressure was stable for the last 20-3 days - Flagyl and Rocephin will continue for 3 weeks per ID recommendation in the LTACH - TTE was done and is negative for any vegetation Hyperosmolar NonKetotic Hyperglycemia - Resolved Uncontrolled DM - Currently blood sugar level is on target MALCOLM secondary to vasomotor nephropathy - Creatinine is stable - Nephrology is following Severe acute blood loss anemia on anemia of chronic disease - H&H is stable Metabolic acidosis - Patient's treated with bicarbonate and currently Colostomy; Colostomy care Unstagable scaral pressure ulcer POA - General surgery is following - Wound vac is in place Afib with RVR - Patient is on amiodarone and diltiazem - But it is controlled currently, patient is on Coumadin and INR therapeutic, need follow up at LTAC Troponemia- Type 2 NSTEMI; cardiology evaluated him and recommend no intervention needed at this time Severe Protein calorie malnutrition; follow dietary reccomendations. Generalized weakness; need PT in the LTAC Patient was transferred to LTAC. Disposition: [id number] MEDICARE CERT [facility] Time spent for discharge: 34 minutes - Discharge Diagnoses (1) Colostomy care Status: Acute (2) DKA (diabetic ketoacidoses) Status: Acute (3) Elevated troponin Status: Acute (4) Fever Status: Acute (5) Paroxysmal atrial fibrillation with RVR Status: Chronic (6) Sacral decubitus ulcer, stage IV Status: Chronic Core Measure Documentation - Palliative Care Palliative Care/ Comfort Measures: Not Applicable - Core Measures Any of the following diagnoses?: none Exam - Physical Exam Narrative exam: Not in cardiopulmonary distress. The patient appeared well nourished and normally developed. Vital signs as documented. Head exam is unremarkable. No scleral icterus . Neck is without jugular venous distension, thyromegaly, or carotid bruits. Lungs are clear to auscultation. Cardiac exam reveals irregular rate and Rhythm. Abdominal exam reveals normal bowel sounds, no masses, no organomegaly and no aortic enlargement. Extremities are nonedematous and both femoral and pedal pulses are normal. Sacral decubitus ulcer. SENIOR NATIONAL ACCOUNT MANAGER: Alert and oriented 3. No focal weakness. - Constitutional Vitals: Temp Pulse Resp BP Pulse Ox 99.0 F 88 31 H 118/63 97 10/23/18 08:00 10/23/18 11:00 10/23/18 11:00 10/23/18 11:00 10/23/18 11:00 Plan Activity: advance as tolerated Weight Bearing Status: Weight Bear as Tolerated Diet: diabetic Follow up with: FERNANDO ROMANO MD [Primary Care Provider] - 3-5 Days Forms: Warfarin Discharge Instruction
[2018-10-23 12:27] LABS: Calcium 7.4 mg/dL (8.4-10.2)
--- NOTE | 2018-10-23 13:04 | Progress Note ---
Assessment and Plan Cultures: 10/11/2018 blood culture: Beta Strep group C 2 of 4 bottles 10/11/2018 urine culture: mixed growth 10/13/2018 blood culture no growth 10/18/2018 blood culture no growth today 10/18/2018 urine culture: no growth A/P: 58-year-old male with diabetes mellitus, recent admission in August 2018 for an anal abscess, colostomy was sent to the emergency room from an SNF earlier this morning after he was noted to have a fever with shaking chills. Admitted with: #1 Severe sepsis with septic shock: fever and shock resolved, leukocytosis better 28 -- > 24-->20 -->17K. Source could be either Strep bacteremia +/- infected and necrotic sacral wound +/- UTI. New Shock ? septic or cardiogenic. resolved - CT abd showed ?chronic colitis, small bilateral pleural effusions, ileus, anasarca, bilateral renal calculi. - Repeat UA, urine culture and blood culture negative. CXR 10/15 better. #2 Strep group C bacteremia: likely source infected and necrotic sacral wound. 10/11/2018 blood culture Beta Strep group C 2 of 4 bottles. Repeat blood culture 10/13 no growth. TTE no vegetation #3 Catheter associated urinary tract infection: POA. UA showing significant pyuria. Suarez exchanged. Urine culture grew 10-100K mixed growth #4 Sacral decubitus ulcer, infected, stage 4: recent anal abscess status post debridement at [facility] in August 2018. Per surgery does not believe source of bacteremia is the infected decubitus. No bone exposed on exam. CRP=6.8. #5 Acute kidney injury/acute renal failure: Present on admission. resolved #6 Elevated troponins: Cardiology on board. #7 Acute encephalopathy: probably from sepsis. resolved #8 Acute anemia: GI consulted. Recs: monitor leukocytosis continue ceftriaxone 2 g IV qday and flagyl 500 m PO TID for 3 weeks until 11/03/2018 to cover Strep bacteremia and sacral wound infection. Order sent to home health care case manager. continue off loading patient to be discharged to [facility] today Will sign off MD [facility] C: [phone] O: [phone] F: [phone] Subjective Date of service: 10/23/18 Principal diagnosis: Acute Toxic metabolic encephalopathy; Septic Shock; Severe Sepsis; DKA Interval history: Patient is alert, talking, no fever No fever. No complaints. ROS: no fever, no chills, denies N/V/D, rash Objective - Exam Narrative Exam: Constitutional: Alert, cooperative. No acute distress on NC O2 Head, Ears, Nose: Normocephalic, atraumatic. External ears, nose normal Eyes: Conjunctivae/corneas clear. No icterus. No ptosis. Neck: Supple, no meningeal signs Oral: dentition poor, no thrush Cardiovascular: RRR Respiratory: Good air entry, clear to auscultation bilaterally GI: Soft, bowel sounds normal. +ostomy bag. +suarez Musculoskeletal: +bilateral leg edema. Large sacral wound with dressings Skin: No rash. Hem/Lymphatic: No palpable cervical or supraclavicular nodes. No lymphangitis Psych: Mood ok. Neurological: Awake, alert, but not oriented. R IJ - Constitutional Vitals: Vital Signs Temp Pulse Resp BP Pulse Ox 99.0 F 88 31 H 95/57 97 10/23/18 08:00 10/23/18 12:48 10/23/18 11:00 10/23/18 12:48 10/23/18 11:00 Temperature -Last 24 Hours Temperature 99.0 F Temperature 98.9 F Temperature 98.7 F Temperature 98.5 F Temperature 99.0 F - Labs CBC & Chem 7: 10/23/18 07:08 10/23/18 11:04 Labs: Abnormal lab results 10/22/18 10/22/18 10/22/18 Range/Units 11:42 13:44 17:09 WBC (4.5-11.0) K/mm3 RBC (3.65-5.03) M/mm3 Hgb (11.8-15.2) gm/dl Hct (35.5-45.6) % RDW (13.2-15.2) % Lymph % (Auto) (13.4-35.0) % [place] # (0.0-0.8) K/mm3 Seg Neutrophils % (40.0-70.0) % Seg Neutrophils # (1.8-7.7) K/mm3 PT (12.2-14.9) Sec. INR (0.87-1.13) Potassium 3.5 L (3.6-5.0) mmol/L Chloride 108.4 H (98-107) mmol/L Carbon Dioxide 19 L (22-30) mmol/L BUN 26 H (9-20) mg/dL Creatinine 2.7 H (0.8-1.5) mg/dL Glucose 141 H (75-100) mg/dL POC Glucose 154 H 127 H (70-105) Calcium 7.2 L (8.4-10.2) mg/dL Magnesium (1.7-2.3) mg/dL 10/22/18 10/22/18 10/23/18 Range/Units 17:51 23:29 05:24 WBC (4.5-11.0) K/mm3 RBC (3.65-5.03) M/mm3 Hgb (11.8-15.2) gm/dl Hct (35.5-45.6) % RDW (13.2-15.2) % Lymph % (Auto) (13.4-35.0) % [place] # (0.0-0.8) K/mm3 Seg Neutrophils % (40.0-70.0) % Seg Neutrophils # (1.8-7.7) K/mm3 PT (12.2-14.9) Sec. INR (0.87-1.13) Potassium (3.6-5.0) mmol/L Chloride (98-107) mmol/L Carbon Dioxide (22-30) mmol/L BUN (9-20) mg/dL Creatinine 2.8 H (0.8-1.5) mg/dL Glucose (75-100) mg/dL POC Glucose 218 H 142 H (70-105) Calcium (8.4-10.2) mg/dL Magnesium (1.7-2.3) mg/dL 10/23/18 10/23/18 10/23/18 Range/Units 07:04 07:08 11:04 WBC 17.6 H (4.5-11.0) K/mm3 RBC 2.81 L (3.65-5.03) M/mm3 Hgb 8.2 L (11.8-15.2) gm/dl Hct 25.3 L (35.5-45.6) % RDW 18.1 H (13.2-15.2) % Lymph % (Auto) 11.8 L (13.4-35.0) % [place] # 1.2 H (0.0-0.8) K/mm3 Seg Neutrophils % 80.4 H (40.0-70.0) % Seg Neutrophils # 14.2 H (1.8-7.7) K/mm3 PT 34.0 H (12.2-14.9) Sec. INR 3.32 H (0.87-1.13) Potassium 3.3 L (3.6-5.0) mmol/L Chloride 109.5 H (98-107) mmol/L Carbon Dioxide 17 L (22-30) mmol/L BUN 30 H (9-20) mg/dL Creatinine 3.2 H (0.8-1.5) mg/dL Glucose 117 H (75-100) mg/dL POC Glucose (70-105) Calcium 7.4 L (8.4-10.2) mg/dL Magnesium (1.7-2.3) mg/dL 10/23/18 10/23/18 Range/Units 11:04 11:40 WBC (4.5-11.0) K/mm3 RBC (3.65-5.03) M/mm3 Hgb (11.8-15.2) gm/dl Hct (35.5-45.6) % RDW (13.2-15.2) % Lymph % (Auto) (13.4-35.0) % [place] # (0.0-0.8) K/mm3 Seg Neutrophils % (40.0-70.0) % Seg Neutrophils # (1.8-7.7) K/mm3 PT (12.2-14.9) Sec. INR (0.87-1.13) Potassium (3.6-5.0) mmol/L Chloride (98-107) mmol/L Carbon Dioxide (22-30) mmol/L BUN (9-20) mg/dL Creatinine (0.8-1.5) mg/dL Glucose (75-100) mg/dL POC Glucose 135 H (70-105) Calcium (8.4-10.2) mg/dL Magnesium 1.40 L (1.7-2.3) mg/dL
[2018-10-23] MEDS ORDERED: K-DUR PO ONE (13:49)
[2018-10-23] MEDS: ALBURX 25% (ALBUMIN) IV SCH (14:53)
--- NOTE | 2018-10-23 15:02 | Progress Note ---
Assessment and Plan Patient alert, awake.Patient is on 2 litres O2, O2 saturation 97%. No acute respiratory distress.Patient afebrile. Has marked leukocytosis. Patient is going to go to [facility]. - Patient Problems (1) DKA (diabetic ketoacidoses) Current Visit: Yes Status: Acute Plan to address problem: .ANion Gap 17. Blood sugur 135. Management as per primary care. (2) Acute renal failure Current Visit: Yes Status: Acute Plan to address problem: Management as per nephrology. (3) Paroxysmal atrial fibrillation with RVR Current Visit: Yes Status: Chronic Plan to address problem: Management as per primary care and cardiology. (4) Sacral decubitus ulcer, stage IV Current Visit: Yes Status: Chronic Plan to address problem: Wound care. Patient is on Metranidazole and ceftrioxone. (5) UTI (urinary tract infection) Current Visit: Yes Status: Acute Plan to address problem: Patient is on ceftrioxone. (6) Hypotension Current Visit: Yes Status: Acute Plan to address problem: Patient is on I/V fluids NSS. (7) Sepsis Current Visit: Yes Status: Acute Plan to address problem: Patient is on ceftrioxone and metronidazole. Subjective Date of service: 10/23/18 Principal diagnosis: Acute Toxic metabolic encephalopathy; Septic Shock; Severe Sepsis; DKA Interval history: Patient alert, awake.Patient is on 2 litres O2, O2 saturation 97%. No acute respiratory distress.Patient afebrile. Has marked leukocytosis. Patient is going to go to [facility]. Objective Vital Signs - 12hr 10/23/18 10/23/18 10/23/18 03:00 03:09 03:10 Temperature 98.9 F Pulse Rate 88 86 Pulse Rate [ Anterior Bilateral Throughout] Pulse Rate [ From Monitor] Respiratory 28 H 27 H Rate Respiratory Rate [Anterior Bilateral Throughout] Blood Pressure 130/67 130/67 O2 Sat by Pulse 98 100 Oximetry 10/23/18 10/23/18 10/23/18 03:20 03:30 03:40 Temperature Pulse Rate 86 89 88 Pulse Rate [ Anterior Bilateral Throughout] Pulse Rate [ From Monitor] Respiratory 18 24 31 H Rate Respiratory Rate [Anterior Bilateral Throughout] Blood Pressure 130/67 130/67 130/67 O2 Sat by Pulse 92 92 92 Oximetry 10/23/18 10/23/18 10/23/18 03:50 04:00 04:10 Temperature Pulse Rate 86 89 86 Pulse Rate [ Anterior Bilateral Throughout] Pulse Rate [ 94 H From Monitor] Respiratory 25 H 27 H 28 H Rate Respiratory Rate [Anterior Bilateral Throughout] Blood Pressure 130/67 130/67 130/67 O2 Sat by Pulse 94 94 95 Oximetry 10/23/18 10/23/18 10/23/18 04:20 04:30 04:40 Temperature Pulse Rate 84 87 86 Pulse Rate [ Anterior Bilateral Throughout] Pulse Rate [ From Monitor] Respiratory 22 28 H 26 H Rate Respiratory Rate [Anterior Bilateral Throughout] Blood Pressure 130/67 130/67 130/67 O2 Sat by Pulse 97 93 95 Oximetry 10/23/18 10/23/18 10/23/18 04:50 05:00 05:10 Temperature Pulse Rate 87 85 86 Pulse Rate [ Anterior Bilateral Throughout] Pulse Rate [ From Monitor] Respiratory 20 12 34 H Rate Respiratory Rate [Anterior Bilateral Throughout] Blood Pressure 130/67 130/67 133/73 O2 Sat by Pulse 89 89 92 Oximetry 10/23/18 10/23/18 10/23/18 05:20 05:30 05:40 Temperature Pulse Rate 82 84 85 Pulse Rate [ Anterior Bilateral Throughout] Pulse Rate [ From Monitor] Respiratory 29 H 11 L 27 H Rate Respiratory Rate [Anterior Bilateral Throughout] Blood Pressure 133/73 105/65 133/73 O2 Sat by Pulse 97 97 97 Oximetry 10/23/18 10/23/18 10/23/18 05:50 06:00 06:10 Temperature Pulse Rate 85 85 85 Pulse Rate [ Anterior Bilateral Throughout] Pulse Rate [ From Monitor] Respiratory 26 H 24 22 Rate Respiratory Rate [Anterior Bilateral Throughout] Blood Pressure 133/73 126/73 105/65 O2 Sat by Pulse 97 98 99 Oximetry 10/23/18 10/23/18 10/23/18 06:20 06:30 06:40 Temperature Pulse Rate 86 83 84 Pulse Rate [ Anterior Bilateral Throughout] Pulse Rate [ From Monitor] Respiratory 25 H 26 H 30 H Rate Respiratory Rate [Anterior Bilateral Throughout] Blood Pressure 105/65 119/66 119/66 O2 Sat by Pulse 98 98 97 Oximetry 10/23/18 10/23/18 10/23/18 06:50 07:00 07:10 Temperature Pulse Rate 83 83 86 Pulse Rate [ Anterior Bilateral Throughout] Pulse Rate [ From Monitor] Respiratory 25 H 26 H 26 H Rate Respiratory Rate [Anterior Bilateral Throughout] Blood Pressure 119/66 101/65 101/65 O2 Sat by Pulse 98 97 97 Oximetry 10/23/18 10/23/18 10/23/18 07:20 07:30 07:37 Temperature Pulse Rate 82 84 Pulse Rate [ 83 Anterior Bilateral Throughout] Pulse Rate [ From Monitor] Respiratory 34 H 32 H Rate Respiratory 20 Rate [Anterior Bilateral Throughout] Blood Pressure 101/65 103/70 O2 Sat by Pulse 93 95 97 Oximetry 10/23/18 10/23/18 10/23/18 07:40 07:42 07:46 Temperature Pulse Rate 82 82 82 Pulse Rate [ Anterior Bilateral Throughout] Pulse Rate [ From Monitor] Respiratory 29 H Rate Respiratory Rate [Anterior Bilateral Throughout] Blood Pressure 103/70 133/75 112/70 O2 Sat by Pulse 99 Oximetry 10/23/18 10/23/18 10/23/18 07:50 08:00 08:10 Temperature 99.0 F Pulse Rate 82 85 88 Pulse Rate [ Anterior Bilateral Throughout] Pulse Rate [ From Monitor] Respiratory 25 H 18 27 H Rate Respiratory Rate [Anterior Bilateral Throughout] Blood Pressure 103/70 101/65 101/65 O2 Sat by Pulse 100 99 98 Oximetry 10/23/18 10/23/18 10/23/18 08:20 08:30 08:40 Temperature Pulse Rate 84 89 88 Pulse Rate [ Anterior Bilateral Throughout] Pulse Rate [ From Monitor] Respiratory 29 H 14 36 H Rate Respiratory Rate [Anterior Bilateral Throughout] Blood Pressure 101/65 111/74 111/74 O2 Sat by Pulse 98 97 91 Oximetry 10/23/18 10/23/18 10/23/18 08:50 09:00 09:10 Temperature Pulse Rate 87 141 H 147 H Pulse Rate [ Anterior Bilateral Throughout] Pulse Rate [ From Monitor] Respiratory 29 H 36 H 35 H Rate Respiratory Rate [Anterior Bilateral Throughout] Blood Pressure 111/74 108/56 108/56 O2 Sat by Pulse 94 91 94 Oximetry 10/23/18 10/23/18 10/23/18 09:20 09:26 09:30 Temperature Pulse Rate 77 149 H 79 Pulse Rate [ Anterior Bilateral Throughout] Pulse Rate [ From Monitor] Respiratory 5 L 79 H Rate Respiratory Rate [Anterior Bilateral Throughout] Blood Pressure 108/56 105/56 101/44 O2 Sat by Pulse 92 90 Oximetry 10/23/18 10/23/18 10/23/18 09:40 09:50 10:00 Temperature Pulse Rate 87 84 87 Pulse Rate [ Anterior Bilateral Throughout] Pulse Rate [ From Monitor] Respiratory 39 H 40 H 32 H Rate Respiratory Rate [Anterior Bilateral Throughout] Blood Pressure 108/56 108/56 121/70 O2 Sat by Pulse 87 92 96 Oximetry 10/23/18 10/23/18 10/23/18 10:10 10:20 10:30 Temperature Pulse Rate 88 86 88 Pulse Rate [ Anterior Bilateral Throughout] Pulse Rate [ From Monitor] Respiratory 14 31 H 41 H Rate Respiratory Rate [Anterior Bilateral Throughout] Blood Pressure 121/70 121/70 111/67 O2 Sat by Pulse 95 97 94 Oximetry 10/23/18 10/23/18 10/23/18 10:40 10:50 11:00 Temperature Pulse Rate 87 87 88 Pulse Rate [ Anterior Bilateral Throughout] Pulse Rate [ From Monitor] Respiratory 15 29 H 31 H Rate Respiratory Rate [Anterior Bilateral Throughout] Blood Pressure 111/67 121/70 118/63 O2 Sat by Pulse 95 99 97 Oximetry 10/23/18 10/23/18 10/23/18 11:10 11:20 11:30 Temperature Pulse Rate 89 88 89 Pulse Rate [ Anterior Bilateral Throughout] Pulse Rate [ From Monitor] Respiratory 15 28 H 25 H Rate Respiratory Rate [Anterior Bilateral Throughout] Blood Pressure 118/63 118/63 118/63 O2 Sat by Pulse 96 98 95 Oximetry 10/23/18 10/23/18 10/23/18 11:40 11:50 12:00 Temperature 98.1 F Pulse Rate 91 H 89 83 Pulse Rate [ Anterior Bilateral Throughout] Pulse Rate [ From Monitor] Respiratory 34 H 30 H 24 Rate Respiratory Rate [Anterior Bilateral Throughout] Blood Pressure 118/63 97/52 99/49 O2 Sat by Pulse 89 95 96 Oximetry 10/23/18 10/23/18 10/23/18 12:10 12:20 12:30 Temperature Pulse Rate 87 86 89 Pulse Rate [ Anterior Bilateral Throughout] Pulse Rate [ From Monitor] Respiratory 34 H 34 H 18 Rate Respiratory Rate [Anterior Bilateral Throughout] Blood Pressure 99/49 99/49 95/57 O2 Sat by Pulse 91 99 96 Oximetry 10/23/18 10/23/18 10/23/18 12:40 12:48 12:50 Temperature Pulse Rate 88 88 91 H Pulse Rate [ Anterior Bilateral Throughout] Pulse Rate [ From Monitor] Respiratory 18 18 Rate Respiratory Rate [Anterior Bilateral Throughout] Blood Pressure 95/57 95/57 95/57 O2 Sat by Pulse 98 99 Oximetry 10/23/18 10/23/18 10/23/18 13:00 13:10 13:20 Temperature Pulse Rate 90 88 89 Pulse Rate [ Anterior Bilateral Throughout] Pulse Rate [ From Monitor] Respiratory 22 28 H 32 H Rate Respiratory Rate [Anterior Bilateral Throughout] Blood Pressure 99/64 99/64 99/64 O2 Sat by Pulse 97 99 95 Oximetry 10/23/18 10/23/18 10/23/18 13:30 13:40 13:50 Temperature Pulse Rate 87 86 85 Pulse Rate [ Anterior Bilateral Throughout] Pulse Rate [ From Monitor] Respiratory 36 H 29 H 29 H Rate Respiratory Rate [Anterior Bilateral Throughout] Blood Pressure 84/49 88/53 88/53 O2 Sat by Pulse 96 96 97 Oximetry 10/23/18 10/23/18 10/23/18 14:00 14:10 14:20 Temperature Pulse Rate 86 83 83 Pulse Rate [ Anterior Bilateral Throughout] Pulse Rate [ From Monitor] Respiratory 28 H 29 H 36 H Rate Respiratory Rate [Anterior Bilateral Throughout] Blood Pressure 83/49 83/49 83/49 O2 Sat by Pulse 98 97 97 Oximetry Constitutional: no acute distress, alert, other (elderly looking AAM, normocephalic and atraumatic with mildly increased resp effort at rest) Eyes: non-icteric ENT: oropharynx dry, other (Mallampati 2) Neck: supple, no lymphadenopathy, no JVD Effort: mildly labored Ascultation: Bilateral: clear Percussion: Bilateral: not dull Cardiovascular: irregular rhythm, other (No R/M) Gastrointestinal: hypoactive bowel sounds, soft, non-tender, non-distended Integumentary: rash, decubitus ulcer (sacral) Extremities: no cyanosis, no edema, pulses normal, no ischemia or petechiae Neurologic: normal mental status, non-focal exam (grossly), pupils equal and round, other (weak lower extremities) Psychiatric: mood appropriate, affect normal CBC and BMP: 10/23/18 07:08 10/23/18 11:04 ABG, PT/INR, D-dimer: ABG POC ABG pH 7.380 (7.35-7.45) 10/11/18 17:53 POC ABG pCO2 28.2 (35-45) L 10/11/18 17:53 POC ABG pO2 60 (80-105) L 10/11/18 17:53 POC ABG HCO3 16.7 10/11/18 17:53 POC ABG Total CO2 18 10/11/18 17:53 POC ABG O2 Sat 91 10/11/18 17:53 PT/INR, D-dimer PT 34.0 Sec. (12.2-14.9) H 10/23/18 07:04 INR 3.32 (0.87-1.13) H 10/23/18 07:04 Abnormal lab findings: Abnormal Labs 10/11/18 10/11/18 10/11/18 05:21 05:21 05:21 WBC 22.3 H RBC 2.62 L Hgb 8.0 L Hct 24.5 L MCHC RDW 16.0 H Lymph % (Auto) [place] # Seg Neutrophils % Seg Neuts % (Manual) 90.0 H Lymphocytes % (Manual) 4.0 L Seg Neutrophils # Seg Neutrophils # Man 20.1 H Lymphocytes # (Manual) 0.9 L Monocytes # (Manual) Eosinophils # (Manual) Basophils # (Manual) PT 17.1 H INR 1.35 H POC ABG pCO2 POC ABG pO2 VBG pH Sodium 133 L Potassium 2.8 L* Chloride 94.5 L Carbon Dioxide 11 L BUN 69 H Creatinine 5.0 H Glucose 362 H POC Glucose Lactic Acid Calcium 7.4 L Phosphorus Magnesium Alkaline Phosphatase Total Creatine Kinase Troponin T 0.116 H* C-Reactive Protein Total Protein 6.2 L Albumin 2.1 L Cholesterol 26 L LDL Cholesterol Direct 4 L HDL Cholesterol 7 L Urine WBC (Auto) Urine Creatinine Crossmatch 10/11/18 10/11/18 10/11/18 05:21 05:21 05:21 WBC RBC Hgb Hct MCHC RDW Lymph % (Auto) [place] # Seg Neutrophils % Seg Neuts % (Manual) Lymphocytes % (Manual) Seg Neutrophils # Seg Neutrophils # Man Lymphocytes # (Manual) Monocytes # (Manual) Eosinophils # (Manual) Basophils # (Manual) PT INR POC ABG pCO2 POC ABG pO2 VBG pH 7.226 L Sodium Potassium Chloride Carbon Dioxide BUN Creatinine Glucose POC Glucose Lactic Acid 7.40 H* Calcium Phosphorus Magnesium Alkaline Phosphatase Total Creatine Kinase 1094 H Troponin T C-Reactive Protein Total Protein Albumin Cholesterol LDL Cholesterol Direct HDL Cholesterol Urine WBC (Auto) Urine Creatinine Crossmatch 10/11/18 10/11/18 10/11/18 06:08 06:51 06:51 WBC RBC Hgb Hct MCHC RDW Lymph % (Auto) [place] # Seg Neutrophils % Seg Neuts % (Manual) Lymphocytes % (Manual) Seg Neutrophils # Seg Neutrophils # Man Lymphocytes # (Manual) Monocytes # (Manual) Eosinophils # (Manual) Basophils # (Manual) PT INR POC ABG pCO2 POC ABG pO2 VBG pH Sodium 132 L Potassium 3.1 L Chloride 94.3 L Carbon Dioxide 10 L BUN 68 H Creatinine 5.8 H Glucose 402 H POC Glucose Lactic Acid 7.80 H* Calcium 7.8 L Phosphorus 4.80 H Magnesium 0.90 L* Alkaline Phosphatase Total Creatine Kinase Troponin T C-Reactive Protein Total Protein Albumin Cholesterol LDL Cholesterol Direct HDL Cholesterol Urine WBC (Auto) > 182.0 H Urine Creatinine Crossmatch 10/11/18 10/11/18 10/11/18 08:56 09:05 10:23 WBC RBC Hgb Hct MCHC RDW Lymph % (Auto) [place] # Seg Neutrophils % Seg Neuts % (Manual) Lymphocytes % (Manual) Seg Neutrophils # Seg Neutrophils # Man Lymphocytes # (Manual) Monocytes # (Manual) Eosinophils # (Manual) Basophils # (Manual) PT INR POC ABG pCO2 POC ABG pO2 VBG pH Sodium Potassium Chloride Carbon Dioxide BUN Creatinine Glucose POC Glucose 367 H 305 H Lactic Acid Calcium Phosphorus Magnesium Alkaline Phosphatase Total Creatine Kinase Troponin T C-Reactive Protein Total Protein Albumin Cholesterol LDL Cholesterol Direct HDL Cholesterol Urine WBC (Auto) Urine Creatinine Crossmatch See Detail 10/11/18 10/11/18 10/11/18 11:12 12:17 12:18 WBC RBC Hgb Hct MCHC RDW Lymph % (Auto) [place] # Seg Neutrophils % Seg Neuts % (Manual) Lymphocytes % (Manual) Seg Neutrophils # Seg Neutrophils # Man Lymphocytes # (Manual) Monocytes # (Manual) Eosinophils # (Manual) Basophils # (Manual) PT INR POC ABG pCO2 POC ABG pO2 VBG pH Sodium 135 L Potassium 2.8 L* Chloride 97.9 L Carbon Dioxide 14 L BUN 67 H Creatinine 6.0 H Glucose 246 H POC Glucose 299 H 261 H Lactic Acid Calcium 7.5 L Phosphorus Magnesium Alkaline Phosphatase Total Creatine Kinase 1110 H Troponin T C-Reactive Protein Total Protein Albumin Cholesterol LDL Cholesterol Direct HDL Cholesterol Urine WBC (Auto) Urine Creatinine Crossmatch 10/11/18 10/11/18 10/11/18 13:05 14:13 14:34 WBC RBC Hgb Hct MCHC RDW Lymph % (Auto) [place] # Seg Neutrophils % Seg Neuts % (Manual) Lymphocytes % (Manual) Seg Neutrophils # Seg Neutrophils # Man Lymphocytes # (Manual) Monocytes # (Manual) Eosinophils # (Manual) Basophils # (Manual) PT INR POC ABG pCO2 POC ABG pO2 VBG pH Sodium 135 L Potassium 2.7 L* Chloride Carbon Dioxide 18 L BUN 68 H Creatinine 5.0 H Glucose 191 H POC Glucose 251 H 233 H Lactic Acid Calcium 7.1 L Phosphorus Magnesium Alkaline Phosphatase Total Creatine Kinase Troponin T C-Reactive Protein Total Protein Albumin Cholesterol LDL Cholesterol Direct HDL Cholesterol Urine WBC (Auto) Urine Creatinine Crossmatch 10/11/18 10/11/18 10/11/18 15:08 16:00 17:20 WBC RBC Hgb Hct MCHC RDW Lymph % (Auto) [place] # Seg Neutrophils % Seg Neuts % (Manual) Lymphocytes % (Manual) Seg Neutrophils # Seg Neutrophils # Man Lymphocytes # (Manual) Monocytes # (Manual) Eosinophils # (Manual) Basophils # (Manual) PT INR POC ABG pCO2 POC ABG pO2 VBG pH Sodium Potassium Chloride Carbon Dioxide BUN Creatinine Glucose POC Glucose 213 H 224 H 187 H Lactic Acid Calcium Phosphorus Magnesium Alkaline Phosphatase Total Creatine Kinase Troponin T C-Reactive Protein Total Protein Albumin Cholesterol LDL Cholesterol Direct HDL Cholesterol Urine WBC (Auto) Urine Creatinine Crossmatch 10/11/18 10/11/18 10/11/18 17:53 17:58 18:12 WBC RBC Hgb Hct MCHC RDW Lymph % (Auto) [place] # Seg Neutrophils % Seg Neuts % (Manual) Lymphocytes % (Manual) Seg Neutrophils # Seg Neutrophils # Man Lymphocytes # (Manual) Monocytes # (Manual) Eosinophils # (Manual) Basophils # (Manual) PT INR POC ABG pCO2 28.2 L POC ABG pO2 60 L VBG pH Sodium Potassium Chloride Carbon Dioxide BUN Creatinine Glucose POC Glucose 189 H Lactic Acid Calcium Phosphorus Magnesium Alkaline Phosphatase Total Creatine Kinase 933 H Troponin T C-Reactive Protein Total Protein Albumin Cholesterol LDL Cholesterol Direct HDL Cholesterol Urine WBC (Auto) Urine Creatinine Crossmatch 01/10/11/18 10/11/18 18:58 20:16 21:10 WBC RBC Hgb Hct MCHC RDW Lymph % (Auto) [place] # Seg Neutrophils % Seg Neuts % (Manual) Lymphocytes % (Manual) Seg Neutrophils # Seg Neutrophils # Man Lymphocytes # (Manual) Monocytes # (Manual) Eosinophils # (Manual) Basophils # (Manual) PT INR POC ABG pCO2 POC ABG pO2 VBG pH Sodium Potassium Chloride Carbon Dioxide BUN Creatinine Glucose POC Glucose 192 H 179 H 160 H Lactic Acid Calcium Phosphorus Magnesium Alkaline Phosphatase Total Creatine Kinase Troponin T C-Reactive Protein Total Protein Albumin Cholesterol LDL Cholesterol Direct HDL Cholesterol Urine WBC (Auto) Urine Creatinine Crossmatch 10/11/18 10/11/18 10/11/18 22:14 22:42 23:09 WBC RBC Hgb Hct MCHC RDW Lymph % (Auto) [place] # Seg Neutrophils % Seg Neuts % (Manual) Lymphocytes % (Manual) Seg Neutrophils # Seg Neutrophils # Man Lymphocytes # (Manual) Monocytes # (Manual) Eosinophils # (Manual) Basophils # (Manual) PT INR POC ABG pCO2 POC ABG pO2 VBG pH Sodium 136 L Potassium 2.9 L* Chloride Carbon Dioxide 17 L BUN 61 H Creatinine 4.0 H Glucose 122 H POC Glucose 145 H 129 H Lactic Acid Calcium 6.6 L Phosphorus Magnesium Alkaline Phosphatase Total Creatine Kinase Troponin T C-Reactive Protein Total Protein Albumin Cholesterol LDL Cholesterol Direct HDL Cholesterol Urine WBC (Auto) Urine Creatinine Crossmatch 10/11/18 10/11/18 10/11/18 Unknown Unknown Unknown WBC RBC Hgb Hct MCHC RDW Lymph % (Auto) [place] # Seg Neutrophils % Seg Neuts % (Manual) Lymphocytes % (Manual) Seg Neutrophils # Seg Neutrophils # Man Lymphocytes # (Manual) Monocytes # (Manual) Eosinophils # (Manual) Basophils # (Manual) PT INR POC ABG pCO2 POC ABG pO2 VBG pH Sodium 133 L Potassium 3.0 L Chloride 93.7 L Carbon Dioxide 9 L* BUN 67 H Creatinine 5.9 H Glucose 406 H POC Glucose Lactic Acid 8.50 H* Calcium 7.6 L Phosphorus Magnesium Alkaline Phosphatase Total Creatine Kinase Troponin T C-Reactive Protein Total Protein Albumin Cholesterol LDL Cholesterol Direct HDL Cholesterol Urine WBC (Auto) > 182.0 H Urine Creatinine Crossmatch 10/12/18 10/12/18 10/12/18 00:18 01:42 02:03 WBC RBC Hgb Hct MCHC RDW Lymph % (Auto) [place] # Seg Neutrophils % Seg Neuts % (Manual) Lymphocytes % (Manual) Seg Neutrophils # Seg Neutrophils # Man Lymphocytes # (Manual) Monocytes # (Manual) Eosinophils # (Manual) Basophils # (Manual) PT INR POC ABG pCO2 POC ABG pO2 VBG pH Sodium Potassium Chloride Carbon Dioxide BUN Creatinine Glucose POC Glucose 113 H 51 L 116 H Lactic Acid Calcium Phosphorus Magnesium Alkaline Phosphatase Total Creatine Kinase Troponin T C-Reactive Protein Total Protein Albumin Cholesterol LDL Cholesterol Direct HDL Cholesterol Urine WBC (Auto) Urine Creatinine Crossmatch 10/12/18 10/12/18 10/12/18 03:09 04:20 04:20 WBC 26.8 H RBC 2.22 L Hgb 6.7 L Hct 19.4 L* MCHC 35 H RDW 15.8 H Lymph % (Auto) [place] # Seg Neutrophils % Seg Neuts % (Manual) Lymphocytes % (Manual) Seg Neutrophils # Seg Neutrophils # Man Lymphocytes # (Manual) Monocytes # (Manual) Eosinophils # (Manual) Basophils # (Manual) PT INR POC ABG pCO2 POC ABG pO2 VBG pH Sodium Potassium 2.6 L* Chloride Carbon Dioxide 20 L BUN 56 H Creatinine 4.0 H Glucose 134 H POC Glucose 129 H Lactic Acid Calcium 6.4 L Phosphorus Magnesium 1.30 L Alkaline Phosphatase Total Creatine Kinase Troponin T C-Reactive Protein Total Protein 5.8 L Albumin 1.8 L Cholesterol LDL Cholesterol Direct HDL Cholesterol Urine WBC (Auto) Urine Creatinine Crossmatch 10/12/18 10/12/18 10/12/18 04:22 05:25 06:25 WBC RBC Hgb Hct MCHC RDW Lymph % (Auto) [place] # Seg Neutrophils % Seg Neuts % (Manual) Lymphocytes % (Manual) Seg Neutrophils # Seg Neutrophils # Man Lymphocytes # (Manual) Monocytes # (Manual) Eosinophils # (Manual) Basophils # (Manual) PT INR POC ABG pCO2 POC ABG pO2 VBG pH Sodium Potassium 2.7 L* Chloride Carbon Dioxide 19 L BUN 51 H Creatinine 3.6 H Glucose 113 H POC Glucose 186 H 131 H Lactic Acid Calcium 6.4 L Phosphorus Magnesium Alkaline Phosphatase Total Creatine Kinase Troponin T C-Reactive Protein Total Protein Albumin Cholesterol LDL Cholesterol Direct HDL Cholesterol Urine WBC (Auto) Urine Creatinine Crossmatch 10/12/18 10/12/18 10/12/18 07:34 08:28 09:29 WBC RBC Hgb Hct MCHC RDW Lymph % (Auto) [place] # Seg Neutrophils % Seg Neuts % (Manual) Lymphocytes % (Manual) Seg Neutrophils # Seg Neutrophils # Man Lymphocytes # (Manual) Monocytes # (Manual) Eosinophils # (Manual) Basophils # (Manual) PT INR POC ABG pCO2 POC ABG pO2 VBG pH Sodium Potassium Chloride Carbon Dioxide BUN Creatinine Glucose POC Glucose 120 H 110 H 140 H Lactic Acid Calcium Phosphorus Magnesium Alkaline Phosphatase Total Creatine Kinase Troponin T C-Reactive Protein Total Protein Albumin Cholesterol LDL Cholesterol Direct HDL Cholesterol Urine WBC (Auto) Urine Creatinine Crossmatch 10/12/18 10/12/18 10/12/18 11:55 12:55 12:55 WBC RBC Hgb 7.1 L Hct 20.6 L MCHC RDW Lymph % (Auto) [place] # Seg Neutrophils % Seg Neuts % (Manual) Lymphocytes % (Manual) Seg Neutrophils # Seg Neutrophils # Man Lymphocytes # (Manual) Monocytes # (Manual) Eosinophils # (Manual) Basophils # (Manual) PT INR POC ABG pCO2 POC ABG pO2 VBG pH Sodium 136 L Potassium 2.9 L* Chloride Carbon Dioxide 16 L BUN 48 H Creatinine 3.1 H Glucose 258 H POC Glucose 219 H Lactic Acid Calcium 6.3 L Phosphorus Magnesium Alkaline Phosphatase Total Creatine Kinase Troponin T C-Reactive Protein Total Protein Albumin Cholesterol LDL Cholesterol Direct HDL Cholesterol Urine WBC (Auto) Urine Creatinine Crossmatch 10/12/18 10/12/18 10/12/18 12:55 17:49 19:23 WBC RBC Hgb 7.7 L Hct 22.9 L MCHC RDW Lymph % (Auto) [place] # Seg Neutrophils % Seg Neuts % (Manual) Lymphocytes % (Manual) Seg Neutrophils # Seg Neutrophils # Man Lymphocytes # (Manual) Monocytes # (Manual) Eosinophils # (Manual) Basophils # (Manual) PT INR POC ABG pCO2 POC ABG pO2 VBG pH Sodium Potassium Chloride Carbon Dioxide BUN Creatinine Glucose POC Glucose 344 H Lactic Acid Calcium Phosphorus Magnesium 4.80 H Alkaline Phosphatase Total Creatine Kinase Troponin T C-Reactive Protein Total Protein Albumin Cholesterol LDL Cholesterol Direct HDL Cholesterol Urine WBC (Auto) Urine Creatinine Crossmatch 10/12/18 10/13/18 10/13/18 22:21 00:15 05:28 WBC RBC Hgb Hct MCHC RDW Lymph % (Auto) [place] # Seg Neutrophils % Seg Neuts % (Manual) Lymphocytes % (Manual) Seg Neutrophils # Seg Neutrophils # Man Lymphocytes # (Manual) Monocytes # (Manual) Eosinophils # (Manual) Basophils # (Manual) PT INR POC ABG pCO2 POC ABG pO2 VBG pH Sodium Potassium Chloride Carbon Dioxide BUN Creatinine Glucose POC Glucose 367 H 392 H 356 H Lactic Acid Calcium Phosphorus Magnesium Alkaline Phosphatase Total Creatine Kinase Troponin T C-Reactive Protein Total Protein Albumin Cholesterol LDL Cholesterol Direct HDL Cholesterol Urine WBC (Auto) Urine Creatinine Crossmatch 10/13/18 10/13/18 10/13/18 05:30 05:30 06:37 WBC 19.2 H RBC 2.67 L Hgb 7.9 L Hct 23.2 L MCHC RDW 16.4 H Lymph % (Auto) [place] # Seg Neutrophils % Seg Neuts % (Manual) Lymphocytes % (Manual) Seg Neutrophils # Seg Neutrophils # Man Lymphocytes # (Manual) Monocytes # (Manual) Eosinophils # (Manual) Basophils # (Manual) PT INR POC ABG pCO2 POC ABG pO2 VBG pH Sodium 135 L Potassium 2.8 L* Chloride Carbon Dioxide 17 L BUN 37 H Creatinine 2.0 H Glucose 383 H POC Glucose 413 H Lactic Acid Calcium 6.6 L Phosphorus Magnesium Alkaline Phosphatase Total Creatine Kinase Troponin T C-Reactive Protein Total Protein Albumin Cholesterol LDL Cholesterol Direct HDL Cholesterol Urine WBC (Auto) Urine Creatinine Crossmatch 10/13/18 10/13/18 10/13/18 11:15 12:46 17:47 WBC RBC Hgb Hct MCHC RDW Lymph % (Auto) [place] # Seg Neutrophils % Seg Neuts % (Manual) Lymphocytes % (Manual) Seg Neutrophils # Seg Neutrophils # Man Lymphocytes # (Manual) Monocytes # (Manual) Eosinophils # (Manual) Basophils # (Manual) PT INR POC ABG pCO2 POC ABG pO2 VBG pH Sodium Potassium 3.2 L Chloride Carbon Dioxide BUN Creatinine Glucose POC Glucose 220 H 181 H Lactic Acid Calcium Phosphorus Magnesium Alkaline Phosphatase Total Creatine Kinase Troponin T C-Reactive Protein Total Protein Albumin Cholesterol LDL Cholesterol Direct HDL Cholesterol Urine WBC (Auto) Urine Creatinine Crossmatch 10/13/18 10/13/18 10/13/18 19:45 22:19 23:53 WBC RBC Hgb Hct MCHC RDW Lymph % (Auto) [place] # Seg Neutrophils % Seg Neuts % (Manual) Lymphocytes % (Manual) Seg Neutrophils # Seg Neutrophils # Man Lymphocytes # (Manual) Monocytes # (Manual) Eosinophils # (Manual) Basophils # (Manual) PT INR POC ABG pCO2 POC ABG pO2 VBG pH Sodium Potassium Chloride Carbon Dioxide BUN Creatinine Glucose POC Glucose 185 H 153 H 152 H Lactic Acid Calcium Phosphorus Magnesium Alkaline Phosphatase Total Creatine Kinase Troponin T C-Reactive Protein Total Protein Albumin Cholesterol LDL Cholesterol Direct HDL Cholesterol Urine WBC (Auto) Urine Creatinine Crossmatch 10/14/18 10/14/18 10/14/18 02:38 04:36 04:36 WBC 19.8 H RBC 3.02 L Hgb 8.9 L Hct 26.1 L MCHC RDW 16.7 H Lymph % (Auto) [place] # Seg Neutrophils % Seg Neuts % (Manual) Lymphocytes % (Manual) Seg Neutrophils # Seg Neutrophils # Man Lymphocytes # (Manual) Monocytes # (Manual) Eosinophils # (Manual) Basophils # (Manual) PT INR POC ABG pCO2 POC ABG pO2 VBG pH Sodium Potassium 2.9 L* Chloride 121.6 H Carbon Dioxide 16 L BUN 25 H Creatinine 1.6 H Glucose 117 H POC Glucose 142 H Lactic Acid Calcium 7.0 L Phosphorus Magnesium Alkaline Phosphatase Total Creatine Kinase Troponin T C-Reactive Protein Total Protein Albumin Cholesterol LDL Cholesterol Direct HDL Cholesterol Urine WBC (Auto) Urine Creatinine Crossmatch 10/14/18 10/14/18 10/14/18 04:36 09:45 10:59 WBC RBC Hgb Hct MCHC RDW Lymph % (Auto) [place] # Seg Neutrophils % Seg Neuts % (Manual) Lymphocytes % (Manual) Seg Neutrophils # Seg Neutrophils # Man Lymphocytes # (Manual) Monocytes # (Manual) Eosinophils # (Manual) Basophils # (Manual) PT INR POC ABG pCO2 POC ABG pO2 VBG pH Sodium Potassium 3.2 L Chloride Carbon Dioxide BUN Creatinine Glucose POC Glucose 110 H Lactic Acid Calcium Phosphorus Magnesium 1.20 L Alkaline Phosphatase Total Creatine Kinase Troponin T C-Reactive Protein Total Protein Albumin Cholesterol LDL Cholesterol Direct HDL Cholesterol Urine WBC (Auto) Urine Creatinine Crossmatch 10/14/18 10/14/18 10/14/18 14:22 17:41 22:58 WBC RBC Hgb Hct MCHC RDW Lymph % (Auto) [place] # Seg Neutrophils % Seg Neuts % (Manual) Lymphocytes % (Manual) Seg Neutrophils # Seg Neutrophils # Man Lymphocytes # (Manual) Monocytes # (Manual) Eosinophils # (Manual) Basophils # (Manual) PT INR POC ABG pCO2 POC ABG pO2 VBG pH Sodium Potassium Chloride Carbon Dioxide BUN Creatinine Glucose POC Glucose 106 H 116 H 134 H Lactic Acid Calcium Phosphorus Magnesium Alkaline Phosphatase Total Creatine Kinase Troponin T C-Reactive Protein Total Protein Albumin Cholesterol LDL Cholesterol Direct HDL Cholesterol Urine WBC (Auto) Urine Creatinine Crossmatch 10/15/18 10/15/18 10/15/18 06:14 11:21 11:21 WBC 31.9 H RBC 2.99 L Hgb 8.6 L Hct 26.4 L MCHC RDW 16.9 H Lymph % (Auto) [place] # Seg Neutrophils % Seg Neuts % (Manual) 92.0 H Lymphocytes % (Manual) 7.0 L Seg Neutrophils # Seg Neutrophils # Man 29.3 H Lymphocytes # (Manual) Monocytes # (Manual) Eosinophils # (Manual) Basophils # (Manual) PT INR POC ABG pCO2 POC ABG pO2 VBG pH Sodium Potassium Chloride 111.6 H Carbon Dioxide 14 L BUN Creatinine Glucose 175 H POC Glucose 184 H Lactic Acid Calcium 7.2 L Phosphorus Magnesium Alkaline Phosphatase Total Creatine Kinase Troponin T C-Reactive Protein Total Protein Albumin Cholesterol LDL Cholesterol Direct HDL Cholesterol Urine WBC (Auto) Urine Creatinine Crossmatch 10/15/18 10/15/18 10/15/18 11:21 11:27 14:43 WBC RBC Hgb Hct MCHC RDW Lymph % (Auto) [place] # Seg Neutrophils % Seg Neuts % (Manual) Lymphocytes % (Manual) Seg Neutrophils # Seg Neutrophils # Man Lymphocytes # (Manual) Monocytes # (Manual) Eosinophils # (Manual) Basophils # (Manual) PT INR POC ABG pCO2 POC ABG pO2 VBG pH Sodium Potassium Chloride Carbon Dioxide BUN Creatinine Glucose POC Glucose 197 H 174 H Lactic Acid Calcium Phosphorus Magnesium 1.30 L Alkaline Phosphatase Total Creatine Kinase Troponin T C-Reactive Protein Total Protein Albumin Cholesterol LDL Cholesterol Direct HDL Cholesterol Urine WBC (Auto) Urine Creatinine Crossmatch 10/15/18 10/15/18 10/15/18 16:06 20:13 23:55 WBC RBC Hgb Hct MCHC RDW Lymph % (Auto) [place] # Seg Neutrophils % Seg Neuts % (Manual) Lymphocytes % (Manual) Seg Neutrophils # Seg Neutrophils # Man Lymphocytes # (Manual) Monocytes # (Manual) Eosinophils # (Manual) Basophils # (Manual) PT 26.5 H INR 2.40 H POC ABG pCO2 POC ABG pO2 VBG pH Sodium Potassium Chloride Carbon Dioxide BUN Creatinine Glucose POC Glucose 131 H 132 H Lactic Acid Calcium Phosphorus Magnesium Alkaline Phosphatase Total Creatine Kinase Troponin T C-Reactive Protein Total Protein Albumin Cholesterol LDL Cholesterol Direct HDL Cholesterol Urine WBC (Auto) Urine Creatinine Crossmatch 10/16/18 10/16/18 10/16/18 05:08 05:08 05:08 WBC 29.6 H RBC 2.99 L Hgb 8.7 L Hct 27.7 L MCHC RDW 17.9 H Lymph % (Auto) [place] # Seg Neutrophils % Seg Neuts % (Manual) Lymphocytes % (Manual) Seg Neutrophils # Seg Neutrophils # Man Lymphocytes # (Manual) Monocytes # (Manual) Eosinophils # (Manual) Basophils # (Manual) PT INR POC ABG pCO2 POC ABG pO2 VBG pH Sodium Potassium Chloride 119.9 H Carbon Dioxide 12 L BUN Creatinine Glucose 116 H POC Glucose Lactic Acid Calcium 6.7 L Phosphorus Magnesium 1.50 L Alkaline Phosphatase Total Creatine Kinase Troponin T C-Reactive Protein Total Protein Albumin Cholesterol LDL Cholesterol Direct HDL Cholesterol Urine WBC (Auto) Urine Creatinine Crossmatch 10/16/18 10/16/18 10/16/18 05:08 05:49 17:44 WBC RBC Hgb Hct MCHC RDW Lymph % (Auto) [place] # Seg Neutrophils % Seg Neuts % (Manual) Lymphocytes % (Manual) Seg Neutrophils # Seg Neutrophils # Man Lymphocytes # (Manual) Monocytes # (Manual) Eosinophils # (Manual) Basophils # (Manual) PT 22.2 H INR 1.90 H POC ABG pCO2 POC ABG pO2 VBG pH Sodium Potassium Chloride Carbon Dioxide BUN Creatinine Glucose POC Glucose 118 H 50 L Lactic Acid Calcium Phosphorus Magnesium Alkaline Phosphatase Total Creatine Kinase Troponin T C-Reactive Protein Total Protein Albumin Cholesterol LDL Cholesterol Direct HDL Cholesterol Urine WBC (Auto) Urine Creatinine Crossmatch 10/16/18 10/16/18 10/17/18 18:29 19:33 00:04 WBC RBC Hgb Hct MCHC RDW Lymph % (Auto) [place] # Seg Neutrophils % Seg Neuts % (Manual) Lymphocytes % (Manual) Seg Neutrophils # Seg Neutrophils # Man Lymphocytes # (Manual) Monocytes # (Manual) Eosinophils # (Manual) Basophils # (Manual) PT INR POC ABG pCO2 POC ABG pO2 VBG pH Sodium Potassium Chloride Carbon Dioxide BUN Creatinine Glucose POC Glucose 60 L 118 H 181 H Lactic Acid Calcium Phosphorus Magnesium Alkaline Phosphatase Total Creatine Kinase Troponin T C-Reactive Protein Total Protein Albumin Cholesterol LDL Cholesterol Direct HDL Cholesterol Urine WBC (Auto) Urine Creatinine Crossmatch 10/17/18 10/17/18 10/17/18 04:52 04:52 05:26 WBC RBC Hgb Hct MCHC RDW Lymph % (Auto) [place] # Seg Neutrophils % Seg Neuts % (Manual) Lymphocytes % (Manual) Seg Neutrophils # Seg Neutrophils # Man Lymphocytes # (Manual) Monocytes # (Manual) Eosinophils # (Manual) Basophils # (Manual) PT 20.9 H INR 1.76 H POC ABG pCO2 POC ABG pO2 VBG pH Sodium Potassium Chloride 113.4 H Carbon Dioxide 14 L BUN Creatinine Glucose 118 H POC Glucose 135 H Lactic Acid Calcium 7.0 L Phosphorus Magnesium Alkaline Phosphatase 219 H Total Creatine Kinase Troponin T C-Reactive Protein Total Protein 5.5 L Albumin 1.3 L Cholesterol LDL Cholesterol Direct HDL Cholesterol Urine WBC (Auto) Urine Creatinine Crossmatch 10/17/18 10/17/18 10/17/18 12:15 17:40 23:15 WBC RBC Hgb Hct MCHC RDW Lymph % (Auto) [place] # Seg Neutrophils % Seg Neuts % (Manual) Lymphocytes % (Manual) Seg Neutrophils # Seg Neutrophils # Man Lymphocytes # (Manual) Monocytes # (Manual) Eosinophils # (Manual) Basophils # (Manual) PT INR POC ABG pCO2 POC ABG pO2 VBG pH Sodium Potassium Chloride Carbon Dioxide BUN Creatinine Glucose POC Glucose 165 H 164 H 185 H Lactic Acid Calcium Phosphorus Magnesium Alkaline Phosphatase Total Creatine Kinase Troponin T C-Reactive Protein Total Protein Albumin Cholesterol LDL Cholesterol Direct HDL Cholesterol Urine WBC (Auto) Urine Creatinine Crossmatch 10/18/18 10/18/18 10/18/18 04:39 04:39 04:39 WBC 28.7 H RBC 2.97 L Hgb 8.6 L Hct 26.0 L MCHC RDW 16.8 H Lymph % (Auto) [place] # Seg Neutrophils % Seg Neuts % (Manual) 90.0 H Lymphocytes % (Manual) 5.0 L Seg Neutrophils # Seg Neutrophils # Man 25.8 H Lymphocytes # (Manual) Monocytes # (Manual) Eosinophils # (Manual) Basophils # (Manual) 0.3 H PT 25.0 H INR 2.22 H POC ABG pCO2 POC ABG pO2 VBG pH Sodium Potassium Chloride Carbon Dioxide BUN Creatinine Glucose POC Glucose Lactic Acid Calcium Phosphorus Magnesium 1.20 L Alkaline Phosphatase Total Creatine Kinase Troponin T C-Reactive Protein Total Protein Albumin Cholesterol LDL Cholesterol Direct HDL Cholesterol Urine WBC (Auto) Urine Creatinine Crossmatch 10/18/18 10/18/18 10/18/18 05:18 08:11 12:23 WBC RBC Hgb Hct MCHC RDW Lymph % (Auto) [place] # Seg Neutrophils % Seg Neuts % (Manual) Lymphocytes % (Manual) Seg Neutrophils # Seg Neutrophils # Man Lymphocytes # (Manual) Monocytes # (Manual) Eosinophils # (Manual) Basophils # (Manual) PT INR POC ABG pCO2 POC ABG pO2 VBG pH Sodium Potassium 3.0 L D Chloride 110.2 H Carbon Dioxide 20 L BUN Creatinine Glucose 185 H POC Glucose 185 H 217 H Lactic Acid Calcium 6.8 L Phosphorus Magnesium Alkaline Phosphatase Total Creatine Kinase Troponin T C-Reactive Protein Total Protein Albumin Cholesterol LDL Cholesterol Direct HDL Cholesterol Urine WBC (Auto) Urine Creatinine Crossmatch 10/18/18 10/18/18 10/18/18 13:41 16:32 16:35 WBC RBC Hgb Hct MCHC RDW Lymph % (Auto) [place] # Seg Neutrophils % Seg Neuts % (Manual) Lymphocytes % (Manual) Seg Neutrophils # Seg Neutrophils # Man Lymphocytes # (Manual) Monocytes # (Manual) Eosinophils # (Manual) Basophils # (Manual) PT INR POC ABG pCO2 POC ABG pO2 VBG pH Sodium Potassium Chloride Carbon Dioxide BUN Creatinine Glucose POC Glucose 118 H Lactic Acid Calcium Phosphorus Magnesium Alkaline Phosphatase Total Creatine Kinase Troponin T C-Reactive Protein 6.80 H Total Protein Albumin Cholesterol LDL Cholesterol Direct HDL Cholesterol Urine WBC (Auto) 22.0 H Urine Creatinine Crossmatch 10/18/18 10/19/18 10/19/18 23:45 04:00 04:00 WBC 24.1 H RBC 2.67 L Hgb 7.8 L Hct 23.3 L MCHC RDW 17.0 H Lymph % (Auto) [place] # Seg Neutrophils % Seg Neuts % (Manual) 73.0 H Lymphocytes % (Manual) Seg Neutrophils # Seg Neutrophils # Man 17.6 H Lymphocytes # (Manual) Monocytes # (Manual) 1.4 H Eosinophils # (Manual) 0.7 H Basophils # (Manual) PT INR POC ABG pCO2 POC ABG pO2 VBG pH Sodium Potassium 3.5 L Chloride 110.9 H Carbon Dioxide 21 L BUN Creatinine Glucose 113 H POC Glucose 147 H Lactic Acid Calcium 6.8 L Phosphorus Magnesium Alkaline Phosphatase Total Creatine Kinase Troponin T C-Reactive Protein Total Protein Albumin Cholesterol LDL Cholesterol Direct HDL Cholesterol Urine WBC (Auto) Urine Creatinine Crossmatch 10/19/18 10/19/18 10/19/18 05:16 05:17 12:19 WBC RBC Hgb Hct MCHC RDW Lymph % (Auto) [place] # Seg Neutrophils % Seg Neuts % (Manual) Lymphocytes % (Manual) Seg Neutrophils # Seg Neutrophils # Man Lymphocytes # (Manual) Monocytes # (Manual) Eosinophils # (Manual) Basophils # (Manual) PT 32.7 H INR 3.16 H POC ABG pCO2 POC ABG pO2 VBG pH Sodium Potassium Chloride Carbon Dioxide BUN Creatinine Glucose POC Glucose 117 H 136 H Lactic Acid Calcium Phosphorus Magnesium Alkaline Phosphatase Total Creatine Kinase Troponin T C-Reactive Protein Total Protein Albumin Cholesterol LDL Cholesterol Direct HDL Cholesterol Urine WBC (Auto) Urine Creatinine Crossmatch 10/19/18 10/19/18 10/20/18 18:05 21:53 00:06 WBC RBC Hgb Hct MCHC RDW Lymph % (Auto) [place] # Seg Neutrophils % Seg Neuts % (Manual) Lymphocytes % (Manual) Seg Neutrophils # Seg Neutrophils # Man Lymphocytes # (Manual) Monocytes # (Manual) Eosinophils # (Manual) Basophils # (Manual) PT INR POC ABG pCO2 POC ABG pO2 VBG pH Sodium Potassium Chloride Carbon Dioxide BUN Creatinine Glucose POC Glucose 107 H 206 H 200 H Lactic Acid Calcium Phosphorus Magnesium Alkaline Phosphatase Total Creatine Kinase Troponin T C-Reactive Protein Total Protein Albumin Cholesterol LDL Cholesterol Direct HDL Cholesterol Urine WBC (Auto) Urine Creatinine Crossmatch 10/20/18 10/20/18 10/20/18 04:14 04:14 05:20 WBC RBC Hgb Hct MCHC RDW Lymph % (Auto) [place] # Seg Neutrophils % Seg Neuts % (Manual) Lymphocytes % (Manual) Seg Neutrophils # Seg Neutrophils # Man Lymphocytes # (Manual) Monocytes # (Manual) Eosinophils # (Manual) Basophils # (Manual) PT 33.4 H INR 3.24 H POC ABG pCO2 POC ABG pO2 VBG pH Sodium Potassium Chloride 112.5 H Carbon Dioxide 19 L BUN Creatinine 1.7 H Glucose 107 H POC Glucose 107 H Lactic Acid Calcium 7.1 L Phosphorus Magnesium 1.60 L Alkaline Phosphatase Total Creatine Kinase Troponin T C-Reactive Protein Total Protein Albumin Cholesterol LDL Cholesterol Direct HDL Cholesterol Urine WBC (Auto) Urine Creatinine Crossmatch 10/20/18 10/20/1810/20/19 12:13 17:32 22:23 WBC RBC Hgb Hct MCHC RDW Lymph % (Auto) [place] # Seg Neutrophils % Seg Neuts % (Manual) Lymphocytes % (Manual) Seg Neutrophils # Seg Neutrophils # Man Lymphocytes # (Manual) Monocytes # (Manual) Eosinophils # (Manual) Basophils # (Manual) PT INR POC ABG pCO2 POC ABG pO2 VBG pH Sodium Potassium Chloride Carbon Dioxide BUN Creatinine Glucose POC Glucose 142 H 137 H 157 H Lactic Acid Calcium Phosphorus Magnesium Alkaline Phosphatase Total Creatine Kinase Troponin T C-Reactive Protein Total Protein Albumin Cholesterol LDL Cholesterol Direct HDL Cholesterol Urine WBC (Auto) Urine Creatinine Crossmatch 10/21/18 10/21/18 10/21/18 05:11 05:11 05:11 WBC 20.7 H RBC 2.79 L Hgb 8.3 L Hct 25.6 L MCHC RDW 18.5 H Lymph % (Auto) [place] # Seg Neutrophils % Seg Neuts % (Manual) 81.0 H Lymphocytes % (Manual) 11.0 L Seg Neutrophils # Seg Neutrophils # Man 16.8 H Lymphocytes # (Manual) Monocytes # (Manual) Eosinophils # (Manual) Basophils # (Manual) PT 33.2 H INR 3.22 H POC ABG pCO2 POC ABG pO2 VBG pH Sodium Potassium Chloride 111.0 H Carbon Dioxide 19 L BUN Creatinine 2.2 H Glucose 127 H POC Glucose Lactic Acid Calcium 7.2 L Phosphorus Magnesium Alkaline Phosphatase Total Creatine Kinase Troponin T C-Reactive Protein Total Protein Albumin Cholesterol LDL Cholesterol Direct HDL Cholesterol Urine WBC (Auto) Urine Creatinine Crossmatch 10/21/18 10/21/18 10/22/18 05:28 17:06 00:51 WBC RBC Hgb Hct MCHC RDW Lymph % (Auto) [place] # Seg Neutrophils % Seg Neuts % (Manual) Lymphocytes % (Manual) Seg Neutrophils # Seg Neutrophils # Man Lymphocytes # (Manual) Monocytes # (Manual) Eosinophils # (Manual) Basophils # (Manual) PT INR POC ABG pCO2 POC ABG pO2 VBG pH Sodium Potassium Chloride Carbon Dioxide BUN Creatinine Glucose POC Glucose 133 H 147 H 162 H Lactic Acid Calcium Phosphorus Magnesium Alkaline Phosphatase Total Creatine Kinase Troponin T C-Reactive Protein Total Protein Albumin Cholesterol LDL Cholesterol Direct HDL Cholesterol Urine WBC (Auto) Urine Creatinine Crossmatch 10/22/18 10/22/18 10/22/18 04:05 04:05 04:48 WBC RBC Hgb Hct MCHC RDW Lymph % (Auto) [place] # Seg Neutrophils % Seg Neuts % (Manual) Lymphocytes % (Manual) Seg Neutrophils # Seg Neutrophils # Man Lymphocytes # (Manual) Monocytes # (Manual) Eosinophils # (Manual) Basophils # (Manual) PT 31.1 H INR 2.96 H POC ABG pCO2 POC ABG pO2 VBG pH Sodium Potassium Chloride Carbon Dioxide BUN Creatinine Glucose POC Glucose Lactic Acid Calcium Phosphorus Magnesium Alkaline Phosphatase Total Creatine Kinase Troponin T C-Reactive Protein Total Protein Albumin Cholesterol LDL Cholesterol Direct HDL Cholesterol Urine WBC (Auto) > 182.0 H Urine Creatinine 131.8 H Crossmatch 10/22/18 10/22/18 10/22/18 05:54 11:42 13:44 WBC RBC Hgb Hct MCHC RDW Lymph % (Auto) [place] # Seg Neutrophils % Seg Neuts % (Manual) Lymphocytes % (Manual) Seg Neutrophils # Seg Neutrophils # Man Lymphocytes # (Manual) Monocytes # (Manual) Eosinophils # (Manual) Basophils # (Manual) PT INR POC ABG pCO2 POC ABG pO2 VBG pH Sodium Potassium 3.5 L Chloride 108.4 H Carbon Dioxide 19 L BUN 26 H Creatinine 2.7 H Glucose 141 H POC Glucose 136 H 154 H Lactic Acid Calcium 7.2 L Phosphorus Magnesium Alkaline Phosphatase Total Creatine Kinase Troponin T C-Reactive Protein Total Protein Albumin Cholesterol LDL Cholesterol Direct HDL Cholesterol Urine WBC (Auto) Urine Creatinine Crossmatch 10/22/18 10/22/18 10/22/18 17:09 17:51 23:29 WBC RBC Hgb Hct MCHC RDW Lymph % (Auto) [place] # Seg Neutrophils % Seg Neuts % (Manual) Lymphocytes % (Manual) Seg Neutrophils # Seg Neutrophils # Man Lymphocytes # (Manual) Monocytes # (Manual) Eosinophils # (Manual) Basophils # (Manual) PT INR POC ABG pCO2 POC ABG pO2 VBG pH Sodium Potassium Chloride Carbon Dioxide BUN Creatinine 2.8 H Glucose POC Glucose 127 H 218 H Lactic Acid Calcium Phosphorus Magnesium Alkaline Phosphatase Total Creatine Kinase Troponin T C-Reactive Protein Total Protein Albumin Cholesterol LDL Cholesterol Direct HDL Cholesterol Urine WBC (Auto) Urine Creatinine Crossmatch 10/23/18 10/23/18 10/23/18 05:24 07:04 07:08 WBC 17.6 H RBC 2.81 L Hgb 8.2 L Hct 25.3 L MCHC RDW 18.1 H Lymph % (Auto) 11.8 L [place] # 1.2 H Seg Neutrophils % 80.4 H Seg Neuts % (Manual) Lymphocytes % (Manual) Seg Neutrophils # 14.2 H Seg Neutrophils # Man Lymphocytes # (Manual) Monocytes # (Manual) Eosinophils # (Manual) Basophils # (Manual) PT 34.0 H INR 3.32 H POC ABG pCO2 POC ABG pO2 VBG pH Sodium Potassium Chloride Carbon Dioxide BUN Creatinine Glucose POC Glucose 142 H Lactic Acid Calcium Phosphorus Magnesium Alkaline Phosphatase Total Creatine Kinase Troponin T C-Reactive Protein Total Protein Albumin Cholesterol LDL Cholesterol Direct HDL Cholesterol Urine WBC (Auto) Urine Creatinine Crossmatch 10/23/18 10/23/18 10/23/18 11:04 11:04 11:40 WBC RBC Hgb Hct MCHC RDW Lymph % (Auto) [place] # Seg Neutrophils % Seg Neuts % (Manual) Lymphocytes % (Manual) Seg Neutrophils # Seg Neutrophils # Man Lymphocytes # (Manual) Monocytes # (Manual) Eosinophils # (Manual) Basophils # (Manual) PT INR POC ABG pCO2 POC ABG pO2 VBG pH Sodium Potassium 3.3 L Chloride 109.5 H Carbon Dioxide 17 L BUN 30 H Creatinine 3.2 H Glucose 117 H POC Glucose 135 H Lactic Acid Calcium 7.4 L Phosphorus Magnesium 1.40 L Alkaline Phosphatase Total Creatine Kinase Troponin T C-Reactive Protein Total Protein Albumin Cholesterol LDL Cholesterol Direct HDL Cholesterol Urine WBC (Auto) Urine Creatinine Crossmatch Allied health notes reviewed: nursing
[2018-10-23 17:35] VITALS: BP 110/64
[2018-10-24] MEDS ORDERED: CORDARONE PO SCH (10:00)
== END 2018-10-23 17:22 | DRG 871 ==
LOC: ED 03:20 → CC1 08:21 → 4A 10-14 12:59 → CC1 10-14 14:21 → 4A 10-14 19:28 → CC1 10-15 15:45 → IMCU 10-20 11:58
PROVIDERS: ADMIT Internal Medicine; ATTEND Internal Medicine
PROC: 06HM33Z Insertion of Infusion Device into Right Femoral Vein, Percutaneous Approach (ICD-10-PCS; principal; 2018-10-11)
PROC: B54BZZA Ultrasonography of Right Lower Extremity Veins, Guidance (ICD-10-PCS; 2018-10-11)
PROC: 4A033R1 Measurement of Arterial Saturation, Peripheral, Percutaneous Approach (ICD-10-PCS; 2018-10-11)
PROC: 30233N1 Transfusion of Nonautologous Red Blood Cells into Peripheral Vein, Percutaneous Approach (ICD-10-PCS; 2018-10-12)
PROC: 0DJ08ZZ Inspection of Upper Intestinal Tract, Via Natural or Artificial Opening Endoscopic (ICD-10-PCS; 2018-10-13)
PROC: 02HV33Z Insertion of Infusion Device into Superior Vena Cava, Percutaneous Approach (ICD-10-PCS; 2018-10-15)
PROC: B548ZZA Ultrasonography of Superior Vena Cava, Guidance (ICD-10-PCS; 2018-10-15)
DX: A41.9 Sepsis, unspecified organism (principal); L89.154 Pressure ulcer of sacral region, stage 4; R65.21 Severe sepsis with septic shock; G92 Toxic encephalopathy; N17.0 Acute kidney failure with tubular necrosis; E43 Unspecified severe protein-calorie malnutrition; I21.A1 Myocardial infarction type 2; E11.10 Type 2 diabetes mellitus with ketoacidosis without coma; T83.518A Infection and inflammatory reaction due to other urinary catheter, initial encounter; N39.0 Urinary tract infection, site not specified; I48.0 Paroxysmal atrial fibrillation; D63.8 Anemia in other chronic diseases classified elsewhere; Y83.8 Other surgical procedures as the cause of abnormal reaction of the patient, or of later complication, without mention of misadventure at the time of the procedure; K20.9 Esophagitis, unspecified; K31.89 Other diseases of stomach and duodenum; E83.42 Hypomagnesemia; E78.00 Pure hypercholesterolemia, unspecified; N18.9 Chronic kidney disease, unspecified; E11.22 Type 2 diabetes mellitus with diabetic chronic kidney disease; I12.9 Hypertensive chronic kidney disease with stage 1 through stage 4 chronic kidney disease, or unspecified chronic kidney disease; E87.6 Hypokalemia; I25.10 Atherosclerotic heart disease of native coronary artery without angina pectoris; Z79.899 Other long term (current) drug therapy; Z93.3 Colostomy status; Z68.28 Body mass index [BMI] 28.0-28.9, adult; Y92.89 Other specified places as the place of occurrence of the external cause; Z79.84 Long term (current) use of oral hypoglycemic drugs
CPT/HCPCS: 36415; 36600; 71045; 74176; 76770; 80048; 80053; 80061; 80202; 81001; 82140; 82270; 82550; 82553; 82565; 82570; 82803; 82805; 82962; 83735; 84100; 84132; 84295; 84300; 84484; 85007; 85014; 85018; 85025; 85027; 85610; 86140; 86850; 86900; 86901; 86920; 87040; 87086; 89050; 93005; 93010; 93306; 94640; 94760; G0378; C9113; J0153; J0282; J0692; J0696; J1815; J2270; J2543; J2704; J3370; J3475; J3480; J7030; J7040; J7050; J7070; P9016; P9047